=== PATIENT | male | born 1945 | race Two or more races ===

== ENCOUNTER 2020-11-13 07:07 | Outpatient (REF) | payer MEDICARE, SELFPAY | END 2020-11-13 07:08 | disposition home or self-care (01) | LOC: HO.MMNH1L 07:07 | PROVIDERS: Visit Provider Family Medicine | DX: Z13.89 Encounter for screening for other disorder (principal) ==

== ENCOUNTER 2020-11-15 06:36 | Outpatient (REF) | payer SELFPAY ==
[2020-11-15 06:45] LABS: Hematocrit 29.3 % (42-52); Hemoglobin 9.7 g/dl (14.0-18.0); Mean Corpuscular HGB Conc 33.1 g/dl (31.0-36.0); Mean Corpuscular Hemoglobin 29.6 pg (27.0-33.0); Mean Corpuscular Volume 89.3 fL (80-98); Mean Platelet Volume 10.9 fL (9.4-12.4); Platelet Count 398 X10*3/uL (160-400); Red Blood Count 3.28 X10*6/uL (4.60-5.80); Red Cell Distribution Width 13.4 % (11.0-16.0); White Blood Count 10.5 X10*3/uL (4.8-10.8)
[2020-11-15 07:19] LABS: Alanine Aminotransferase 24 U/L (0-40); Albumin Level 3.5 g/dL (3.5-5.0); Alkaline Phosphatase 83 U/L (39-117); Anion Gap 13 (12-20); Aspartate Amino Transferase 18 U/L (5-37); Bilirubin Total 0.7 mg/dL (0.0-1.0); Blood Urea Nitrogen 21 mg/dL (9-16); Calcium 8.7 mg/dL (8.4-10.2); Carbon Dioxide 26 mmol/L (22-29); Chloride 99 mmol/L (96-108); Estimated Glomerular Filt Rate > 60; Glucose Random 117 mg/dL (60-115); Potassium 4.4 mmol/L (3.3-5.1); Sodium 134 mmol/L (135-145); Total Protein 6.1 g/dL (6.5-8.0)
== END 2020-11-15 06:37 | disposition home or self-care (01) ==
LOC: HO.MMNH1L 06:36
PROVIDERS: Visit Provider Family Medicine
DX: R07.9 Chest pain, unspecified (principal)
CPT/HCPCS: 36415; 80053; 85027

== ENCOUNTER 2022-12-09 10:30 | Inpatient (IN) | payer MEDICARE, MEDICAID, SELFPAY ==
[2022-12-09] VITALS (17 sets, daily range): BP systolic 97–142; BP diastolic 55–93; PULSE 71–97; RESP 17–26; TEMP 34.5–36.7; O2SAT 94–100; BMI 23.5
--- NOTE | ~2022-12-09 | XR_ITS ---
EXAMINATION: XR CHEST CLINICAL INFORMATION: Acute dyspnea COMPARISON: None available. TECHNIQUE: AP upright portable view of the chest was obtained. FINDINGS: Patient is status post median sternotomy. Vascular stent projects over the heart. The lungs are well expanded and clear. No focal consolidation, interstitial pulmonary edema or pneumothorax. The cardiomediastinal sweat is within normal limits. There is slight blunting of the costophrenic angles which could represent pleural thickening or small pleural effusions. No acute bony abnormality. XR/XR chest 1V IMPRESSION: Possible small bilateral pleural effusions.
--- NOTE | ~2022-12-09 | CT_ITS ---
EXAMINATION: CT ANGIOGRAM OF THE CHEST WITH AND WITHOUT CONTRAST (CT PULMONARY ANGIOGRAM FOR PE) CLINICAL INFORMATION: Reason for Exam acute dyspnea COMPARISON: Chest x-ray 12/09/2022 TECHNIQUE: Prior to contrast administration, noncontrast localization images were obtained. Subsequently, multidetector volumetric imaging was performed from the thoracic inlet to below the diaphragms following the administration of 80 mL Omnipaque 350 intravenous contrast. No contrast reaction reported Sagittal, coronal, and MIP oblique sagittal reformatted images were obtained on the CT workstation, uploaded to PACS, and reviewed. This CT examination was performed using dose optimization techniques as appropriate, variously including the following: *Automated exposure control *Adjustment of mA and/or kV according to patient size (this includes techniques or standardized protocols for targeted exams where dose is matched to indication/reason for exam; i.e. extremities or head) *Use of iterative reconstruction technique Total exam dose-length product 302 mGy-cm FINDINGS: QUALITY OF STUDY/CONTRAST BOLUS: Satisfactory. PULMONARY ARTERIES: No pulmonary emboli. THORACIC AORTA: No aneurysm. LUNG: The lungs are well-expanded and clear of acute pneumonic process. Mild atelectatic changes are seen in the right lung base. PLEURA: No pleural effusion or pneumothorax. MEDIASTINUM: Heart size is normal. The pulmonary vascularity is normal. Small shotty lymph nodes are seen in the aortic window. The largest lymph node measures 9 mm. No additional lymph nodes seen. There is no pericardial effusion. No evidence of septal bowing or right heart strain. CORONARY ARTERY CALCIFICATION: Mild coronary artery calcifications are seen. CHEST WALL/AXILLA: No axillary or internal mammary lymphadenopathy. OSSEOUS STRUCTURES: There are median sternotomy sutures and mediastinal patrizia. There spondylosis is midline spondylosis mid and lower dorsal spine. UPPER ABDOMEN: Visualized liver, spleen, pancreas and right adrenal gland appears unremarkable. There is a left adrenal 1 cm hypodense lesion No reflux of contrast into the hepatic veins to suggest elevated right heart pressures. CT/CT angio chest PE protocol IMPRESSION: 1. No evidence of PE. 2. No evidence of aortic aneurysm. 3. The lungs are clear. VTE: negative
--- NOTE | 2022-12-09 10:45 | ECG_ITS ---
Test Reason : chest pain Blood Pressure : / mmHG Vent. Rate : 088 BPM Atrial Rate : 088 BPM P-R Int : 184 ms QRS Dur : 082 ms QT Int : 370 ms P-R-T Axes : 079 016 079 degrees QTc Int : 447 ms Normal sinus rhythm Anteroseptal infarct (cited on or before 23-OCT-2004) Abnormal ECG When compared with ECG of 23-OCT-2004 21:12, Minimal criteria for Inferior infarct are no longer Present Questionable change in initial forces of Anteroseptal leads T wave amplitude has decreased in Inferior leads T wave inversion less evident in Anterior leads Nonspecific T wave abnormality now evident in Lateral leads Referred By: Bill Dover Electronically Signed By:Ivan Fierro
[2022-12-09] MEDS: Albuterol Sulfate 7.5 MG, Albuterol/Iprat 2.5/0.5MG 3 ML 3 ML INHALE ×2 (10:53→18:38)
[2022-12-09 11:08] LABS: MANUAL DIFF FLAG NO
--- NOTE | 2022-12-09 11:10 | PC.NURSE ---
per EMS - pt increasing shortness of breath since yesterday. stating pt was low 90's on room air EMS placed pt on cpap. upon arrival respiratory at bedside to place pt onto bipap, pt tolerating well. bilateral iv's established prior to arrival by ems.
[2022-12-09 11:13] LABS: Basophils Percent Auto 0.6 % (0-2); Eosinophils Absolute Auto 0.2 X10*3/uL (0.0-0.4); Eosinophils Percent Auto 3.4 % (0-4); Hematocrit 34.8 % (42.0-52.0); Hemoglobin 11.5 g/dl (14.0-18.0); Imm Gran Abs Auto 0.01 X10*3/uL (0.00-0.03); Imm Gran Pct Auto 0.2 % (0.0-0.4); Mean Corpuscular Hemoglobin 29.8 pg (27.0-33.0); Mean Corpuscular Volume 90.2 fL (80.0-98.0); Monocytes Absolute Auto 0.5 X10*3/uL (0.1-1.2); Monocytes Percent Auto 10.1 % (2-11); Neutrophils Absolute Auto 3.2 x10*3/uL (2.0-8.3); Neutrophils Percent Auto 64.7 % (45-73); Red Blood Count 3.86 X10*6/uL (4.60-5.80); Red Cell Distribution Width 12.8 % (11.0-16.0)
[2022-12-09 11:14] LABS: INTERNATIONAL NORM RATIO 0.9 (0.9-1.1); Prothrombin Time 10.6 SEC (10.0-13.1)
[2022-12-09 11:17] LABS: Partial Thromboplastin Time 31.4 SEC (26.0-36.4)
[2022-12-09 11:27] LABS: Troponin-I High Sensitivity 5.7 ng/L (<3.5-35.0)
--- OUTSIDE RECORDS SUMMARY | 2022-12-09 11:27 | XMS_ITS | Continuity of Care Document ---
Author Name Unknown Organization 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) - 02/05/21 Attending Physician: Kilo Smith MD Allergies, Adverse Reactions, Alerts Substance Reaction Severity Status Duloxetine 1 rash Active 1GI Immunizations Given and Recorded Vaccine Date Status Refusal Reason SARS-CoV-2 (COVID-19) mRNA BNT-162b2 vac 09/29/20 Recorded SARS-CoV-2 (COVID-19) mRNA BNT-162b2 vac 09/08/20 Recorded pneumococcal 13-valent vaccine 03/22/20 Recorded pneumococcal 13-valent vaccine 06/23/14 Given Influenza Virus Vaccine (oldterm) 03/22/20 Recorde d Influenza Virus Vaccine (oldterm) 03/10/19 Recorde d Influenza Virus Vaccine (oldterm) 1 04/03/07 Given Influenza Virus Vaccine (oldterm) 2 03/11/06 Given tetanus/diphtheria/pertussis, acel(Tdap) 12/06/19 Given influenza virus vaccine, inactivated 04/17/18 Give n influenza virus vaccine, inactivated 3 02/28/17 Gi radha influenza virus vaccine, inactivated 03/07/16 Give n influenza virus vaccine, inactivated 03/22/15 Give n influenza virus vaccine, inactivated 4 04/02/14 Re corded influenza virus vaccine, inactivated 04/19/13 Give n influenza virus vaccine, inactivated 01/28/12 Give n influenza virus vaccine, inactivated 5 05/01/11 Gi radha influenza virus vaccine, inactivated 6 08/01/10 Gi radha hepatitis B adult vaccine 07/14/13 Given pneumococcal 23-valent vaccine 05/13/12 Given Zoster Vaccine Live 7 05/22/11 Given Hepatitis A Adult Vaccine 8, 9 08/21/10 Given Influenza Vaccine (oldterm) 10 02/09/09 Given Tet/Diphth/Acel, Pertussis (oldterm) 11 08/04/07 G iven Pneumococcal Vaccine (oldterm) 12 03/11/06 Given 1Admin Note: VIS 2Admin Note: VIS-GIVEN 3Result Comment: [02/28/2017] [facility]: [id number] 4[facility] History[facility] 5Admin Note: VIS 12/18/2010 6Admin Note: VIS given 01/02/10 7Admin Note: vis 03/03 8Result Comment: error 9Admin Note: hep A #1 10Admin Note: vis 01/01 11Admin Note: VIS 12Admin Note: vis-given Medications acetaminophen 325 mg oral tablet 975 mg, By Mouth, Every 6 hours, Refills 0, Maintenance, 11/07/20 11:28:00 EDT, Partial fill upon patient request if the prescription is for a schedule II opioid drug. Start Date: 11/07/20 Status: Ordered albuterol 90 mcg/inh inhalation powder 2 puffs, Inhalation, Every 4 hours, PRN as needed, Maintenance, 11/12/20 16:05:00 EDT, Powder, Partial fill upon patient request if the prescription is for a schedule II opioid drug. Start Date: 11/12/20 Status: Ordered amLODIPine 5 mg oral tablet TAKE 1 TABLET BY MOUTH DAILY Start Date: 11/13/20 Status: Ordered aspirin 81 mg oral enteric coated capsule 1 capsule = 81 mg, By Mouth, Daily, # 120 capsule, 0 Refills, Maintenance, EC Capsule Start Date: 11/13/12 Status: Ordered atorvastatin 80 mg oral tablet 1 tablet, By Mouth, Daily, # 90 tablet, 3 Refills, Maintenance, 02/05/21 8:58:00 EDT, [facility] #[id number], 168, cm, 01/30/21 11:10:00 EDT, Height, 72.7, kg, 10/12/20 9:18:00 EDT, Dry Weight Start Date: 02/05/21 Status: Ordered Augmentin 875 mg-125 mg oral tablet 20 tablet, 0 Refills, 01/30/21 11:05:00 EDT, Partial fill upon patient request if the prescription is for a schedule II opioid drug. Start Date: 01/30/21 Status: Ordered baclofen 5 mg oral tablet 1 tablet = 5 mg, By Mouth, 3 times a day, # 90 tablet, 2 Refills, Maintenance, 01/03/21 8:18:00 EDT, Tablet, [facility] #[id number], Partial fill upon patient request if the prescription is for a schedule II opioid drug., 168, cm, 01/03/21 7:53:0... Start Date: 01/03/21 Status: Ordered Baqsimi One Pack 3 mg nasal powder = 3 mg, Naris, Right, Once, PRN hypoglycemia, Maintenance, 11/12/20 16:06:00 EDT, Partial fill uponpatient request if the prescription is for a schedule II opioid drug. Start Date: 11/12/20 Status: Ordered clopidogrel 75 mg oral tablet 75 mg, 1, tablet, By Mouth, Daily, Continue medication through 09/2021 unless otherwise instructed.,# 90 tablet, Refills 3, Tot. Refills 3, Maintenance, 12/28/20 9:56:00 EDT, Route to Pharmacy Electronically, [facility] #[id number], Partial fill... Start Date: 12/28/20 Status: Ordered docusate sodium 100 mg oral capsule 100 mg, 1, capsule, By Mouth, 2 times a day, # 60 capsule, Refills 6, Tot. Refills 6, Maintenance, 01/03/21 8:19:00 EDT, Route to Pharmacy Electronically, [facility] #[id number], Partial fill upon patient request if the prescription is for a sche... Start Date: 01/03/21 Status: Ordered ezetimibe 10 mg oral tablet 1 tablet = 10 mg, By Mouth, Daily, take with atorvastatin, # 30 tablet, 11 Refills, Maintenance, 12/03/20 16:45:00 EDT, Tablet, [facility] #[id number], Partial fill upon patient request if the prescription is for a schedule II opioid drug., 168,... Start Date: 12/03/20 Status: Ordered Glucagon Emergency Kit See Instructions, PRN, Maintenance, Blood Glucose, use as directed for Type 1 Diabetes Mellitus, 11/12/20 16:07:00 EDT, Supply Start Date: 11/12/20 Status: Ordered glucose 40% oral gel 25 mL, By Mouth, Once, Maintenance, 11/12/20 16:06:00 EDT, Gel, Partial fill upon patient request if the prescription is for a schedule II opioid drug. Start Date: 11/12/20 Status: Ordered grab bars grab bars, See Instructions, # 2 each, Refills 0, Tot. Refills 0, Maintenance, DX: STROKE I63.9 LIFETIME NEED fax: [phone], 12/05/20 16:06:00 EDT, Supply Start Date: 12/05/20 Status: Ordered Incruse Ellipta 62.5 mcg/inh inhalation powder 1 each, Inhalation, Every 24 hours, doses should be taken at least 24 hours apart repaces spitriva,# 30 each, 11 Refills, Maintenance, 12/04/20 9:56:00 EDT, Powder, [facility] #[id number], Partial fill upon patient request if the prescription i... Start Date: 12/04/20 Status: Ordered isosorbide mononitrate 30 mg oral tablet, extended release 1 tablet, By Mouth, Daily in AM, # 30 tablet, 0 Refills, [facility] #[id number], 168, cm, 01/10/21 10:40:00 EDT, Height, 72.7, kg, 10/12/20 9:18:00 EDT, Dry Weight Start Date: 01/28/21 Status: Ordered isosorbide mononitrate 30 mg oral tablet, extended release 1 tablet, By Mouth, Daily in AM, # 30 tablet, 0 Refills, [facility] #[id number], 168, cm, 01/10/21 10:40:00 EDT, Height, 72.7, kg, 10/12/20 9:18:00 EDT, Dry Weight Start Date: 01/28/21 Status: Ordered lamotrigine 25 mg oral tablet 25 mg, 1, tablet, By Mouth, 2 times a day, # 180 tablet, Refills 1, Tot. Refills 1, Maintenance, 10/30/20 8:19:00 EDT, Route to Pharmacy Electronically, [facility] #[id number], 168, cm, 216:43:00 EDT, Height, 72.7, kg, 10/12/20 9:18:00 EDT... Start Date: 10/30/20 Status: Ordered lidocaine 5% topical film Topically, Daily, 0 Refills, Maintenance, 11/14/20 14:06:00 EDT, Patch, Partial fill upon patient request if the prescription is for a schedule II opioid drug. Start Date: 11/14/20 Status: Ordered metFORMIN 1000 mg oral tablet 1 tablet = 1,000 mg, By Mouth, 2 times a day, with meals, # 180 tablet, 1 Refills, Maintenance, 12/27/20 13:44:00 EDT, Tablet, [facility] #[id number], 168, cm, 12/01/20 9:19:00 EDT, Height, 72.7, kg, 10/12/20 9:18:00 EDT, Dry Weight Start Date: 12/27/20 Stop Date: 06/25/21 Status: Ordered metoprolol 25 mg oral tablet, extended release 12.5 mg, 0.5, tablet, By Mouth, Daily, # 30 tablet, Refills 2, Tot. Refills 2, Maintenance, 01/10/21 11:01:00 EDT, Route to Pharmacy Electronically, [facility] #[id number], Partial fill upon patient request if the prescription is for a schedule I... Start Date: 01/10/21 Status: Ordered nitroglycerin 0.3 mg sublingual tablet 1 tablet = 0.3 mg, Sublingual, Every 5 minutes, PRN as needed for chest pain, not to exceed 3 doses/15 min--if pain persists, seek medical attention, # 100 tablet, 0 Refills, Maintenance, 12/04/20 10:05:00 EDT, Tablet, [facility] #[id number], Par... Start Date: 12/04/20 Status: Ordered omeprazole 20 mg oral enteric coated capsule 1 capsule = 20 mg, By Mouth, Daily, for 90 days, before breakfast, # 90 capsule, 1 Refills, Hard Stop 02/13/21 15:28:00 EDT, 08/17/20 15:28:00 EDT, EC Capsule, [facility] #[id number], 168, cm, 07/17/20 14:04:00 EST, Height Start Date: 08/17/20 Stop Date: 02/13/21 Status: Ordered omeprazole 20 mg oral enteric coated capsule 1 capsule = 20 mg, By Mouth, Daily, before breakfast, # 90 capsule, 0 Refills, Maintenance, 02/13/21 15:28:00 EDT, EC Capsule, [facility] #[id number], 168, cm, 02/05/21 14:18:00 EDT, Height, 72.7, kg, 10/12/20 9:18:00 EDT, Dry Weight Start Date: 02/13/21 Stop Date: 05/14/21 Status: Ordered oxyCODONE 10 mg oral tablet 1 tablet = 10 mg, By Mouth, Every 4 hours, PRN as needed for pain, 0 Refills, Maintenance, 11/12/2114:57:00 EDT, Tablet, Partial fill upon patient request if the prescription is for a schedule II opioid drug. Start Date: 11/12/20 Status: Ordered oxyCODONE 10 mg oral tablet 1 tablet = 10 mg, By Mouth, Every 4 hours, PRN as needed for pain, chronic back pain, # 168 tablet,0 Refills, Maintenance, 01/30/21 15:55:00 EDT, Tablet, [facility] #[id number], Partial fill upon patient request if the prescription is for a sche... Start Date: 01/30/21 Status: Ordered Plavix 75 mg oral tablet 75 mg, 1, tablet, By Mouth, Daily, # 90 tablet, Refills 3, Tot. Refills 3, Maintenance, 01/03/21 8:20:00 EDT, Route to Pharmacy Electronically, [facility] #[id number], Partial fill upon patient request if the prescription is for a schedule II opi... Start Date: 01/03/21 Status: Ordered Tub transfer bench Tub transfer bench, See Instructions, # 1 each, Refills 0, Tot. Refills 0, Maintenance, DX: STROKE I63.9 LIFETIME NEED fax: [phone], 12/05/20 16:06:00 EDT, Supply Start Date: 12/05/20 Status: Ordered Vitamin C 500 mg oral tablet 1 tablet = 500 mg, By Mouth, Daily, Maintenance, 11/12/20 15:58:00 EDT, Tablet, Partial fill upon patient request if the prescription is for a schedule II opioid drug. Start Date: 11/12/20 Status: Ordered Vitamin D3 2000 intl units oral capsule 1 capsule = 2,000 International_Units, By Mouth, Daily, Maintenance, 11/12/20 16:01:00 EDT, Capsule, Partial fill upon patient request if the prescription is for a schedule II opioid drug. Start Date: 11/12/20 Status: Ordered Problem List Condition Effective Dates Status Health Status Inform ant Adrenal adenoma left;[place] 2020/normal rufina.plasma meranephr/normeta(Confirmed) 11/12/20 Active ASHD cath September 2020 abnormal ef 35% see report(Confirmed) Active Benign Essential Hypertension(Confirmed) Active Hematuria(Confirmed) 1 Active BPH (benign prostatic hypertrophy)(Confirmed) 2 Active Coronary atherosclerosis due to calcified coronary lesion(Confirmed) Active CVA (cerebral vascular accident)(Confirmed) Active Chronic renal disease, stage 3, moderately decreased glomerular filtration rate between 30-59 mL/min/1.73 square meter(Confirmed) Active Chronic Prostatitis(Confirmed) 3, 4 Active 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%(Confirmed) 5 Active Diabetes mellitus with renal manifestation(Confirmed) Active Sigmoid diverticulosis(Confirmed) 6 03/08/15 Active DM (diabetes mellitus), type 2 with peripheral vascular complications(Confirmed) 7 Active Elevated PSA(Confirmed) 8, 9, 10 Active Inclusion cyst mucous rt tonsil(Confirmed) 09/26/17 Active Erectile dysfunction(Confirmed) 11 Active Essential familial hyperlipidemia(Confirmed) Active GERD'egd 2017(Confirmed) 12, 13 07/11/11 Active H/O lumbar discectomy 1991(C onfirmed) 1991 Active History of obstructive sleep apnea;ent sx(Confirmed) 15, 16, 17 Active 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, SVG-PDA, SVG-diag)(Confirmed) 10/29/20 Active Hx of adenomatous colonic polyps(Confirmed) 18 Active Inguinal hernia left(Confirmed) Active Ischemic cardiomyopathy cath September 2020 ef 35%(Confirmed) 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(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) 19, 20, 21 Active Mass of left parotid gland c t angio 2020(Confirmed) 11/28/20 Active Nasal Polyps(Confirmed) 22, 23, 24, 25 Active Encounter for monitoring andrea g-term proton pump inhibitor therapy(Confirmed) Active Mass of pharynx refer ent(Confirmed) 09/15/17 Active Failed back syndrome sx 1991(Confirmed) 26 Active Spinal stenosis of lumbar region(Confirmed) 27 Active Syncope November 12-(Confirmed) 11/12/20 Active Thrombocytopenia(Confirmed) 28, 29 Active Tubular adenoma of colon 201 another colo;2020(Confirmed) 30 Active Vitamin D deficiency(Confirmed) Active 1per urology due BPH 2per CT scan 3no showurology 4bx dec 2012 5fev1 89% 6colonoscopy 2014,mild 7refer teaching 8neg bx 9BIOPSY PLANNED 10DR anish addressing 11had viagra past 12refer EGD unable wean off ppi 13check H pylori 14chronic pain;contract refuses epidurals had bad experience 15epworth 4;had polyp sx 16intol;erant CPAP;refer ENT 17AHI 39.8 CPAP 15cm 18recheck 1 week 19care ploan reviewed 20comm 2 21PHQ9;2. [place] 4, 22had surgery 2011 23sx pending 24had sx 25seeing ENT 26surgery 1991 27MRI 2006 28possible ITP 29monitor 30Tubular adenoma 2014 Diagnosis Diagnosis Type Effective Dates Health Status Clinical Service Informant Adrenal adenoma left;incidental 2020/normal rufina.plasma meranephr/normeta 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 02/05/21 Benign Essential Hypertension 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 02/05/21 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 02/05/21 DM (diabetes mellitus), type 2 with peripheral vascular complications 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 02/05/21 Procedures Procedure Date Related Diagnosis Body Site Status Fine needle aspiration biops y of parotid gland;neg 01/17/21 Completed Vital Signs Most recent to oldest [Reference Range]: 1 2 Height 168 cm (02/05/21 2:18 PM) 168 cm (02/05/21 2:05 PM) Weight 74.9 kg (02/05/21 2:05 PM) Oxygen Saturation [94-100 %] 98 % (02/05/21 2:05 PM) Pulse Rate [55-90 bpm] 80 bpm (02/05/21 2:05 PM) Body Mass Index [18.5-24.99] 26.54 *H* (02/05/21 2:05 PM) Blood Pressure [90-138/55-84 mm Hg] 130/ 80mm Hg (02/05/21 2:18 PM) 146/70mm Hg *H* (02/05/21 2:05 PM) Respiratory Rate [16-30 br/min] 18 br/mi n (02/05/21 2:05 PM) Temperature [96.8-100.4 DegF] 98.4 DegF (02/05/21 2:05 PM) Blood pressure sites Arm, left (02/05/21 2:18 PM) Arm, left (02/05/21 2:05 PM) Temperature Route Oral (02/05/21 2:05 PM) Social History Social History Type Response Smoking Status Former smoker; Tobac co use times per day: smoked < 1/2 PPD; Started at age: 18; Stopped at age: 65; entered on: 12/23/13 Sex
--- OUTSIDE RECORDS SUMMARY | 2022-12-09 11:27 | XMS_ITS | Continuity of Care Document ---
Author Name Unknown Organization [facility] Address [address] [place] [id number] Care Team Providers Care Learning Coach Name Role Phone Kristin LEVI, Leticia Hope Primary Care Physician [phone] Encounter [facility] Date(s): 06/07/22 - 06/07/[address] [address] Discharge Disposition: A-D/C Home Attending Physician: Rubén Mathews Jr, MD Admitting Physician: Rubén Mathews Jr, MD Referring Physician: Rubén Mathews Jr, MD Allergies, Adverse Reactions, Alerts Substance Reaction Severity Status Duloxetine 1 rash Active 1GI Immunizations Given and Recorded Vaccine Date Status Refusal Reason influenza virus vaccine, inactivated 1 03/28/22 Gi radha influenza virus vaccine, inactivated 2 03/19/21 Gi radha influenza virus vaccine, inactivated 04/17/18 Give n [...] virus vaccine, inactivated 6 08/01/10 Gi radha SARS-CoV-2 mRNA (bdgchun-qvhk-frzgo) vax 7 06/29/21 Given SARS-CoV-2 (COVID-19) mRNA BNT-162b2 vac 09/29/20 Recorded SARS-CoV-2 (COVID-19) mRNA BNT-162b2 vac 09/08/20 Recorded pneumococcal 13-valent vaccine 03/22/20 Recorded pneumococcal 13-valent vaccine 06/23/14 Given Influenza Virus Vaccine (oldterm) 03/22/20 Recorde d Influenza Virus Vaccine (oldterm) 03/10/19 Recorde d Influenza Virus Vaccine (oldterm) 8 04/03/07 Given Influenza Virus Vaccine (oldterm) 9 03/11/06 Given tetanus/diphtheria/pertussis, acel(Tdap) 12/06/19 Given hepatitis B adult vaccine 07/14/13 Given pneumococcal 23-valent vaccine 05/13/12 Given Zoster Vaccine Live 10 05/22/11 Given Hepatitis A Adult Vaccine 11, 12 08/21/10 Given Influenza Vaccine (oldterm) 13 02/09/09 Given Tet/Diphth/Acel, Pertussis (oldterm) 14 08/04/07 G iven Pneumococcal Vaccine (oldterm) 15 03/11/06 Given 1Result Comment: [facility]-[id number] 2Result Comment: [facility]: [id number] 3Result Comment: [02/28/2017] HD [facility]: [id number] [facility] 5Admin Note: VIS 12/18/2010 6Admin Note: VIS given 01/02/10 7Result Comment: [facility]-[id number] 8Admin Note: VIS 9Admin Note: VIS-GIVEN 10Admin Note: vis 03/03 11Result Comment: error 12Admin Note: hep A #1 13Admin Note: vis 01/01 14Admin Note: VIS 15Admin Note: vis-given Medications albuterol 90 mcg/inh inhalation powder 2 puffs, Inhalation, Every 4 hours, PRN as needed, Maintenance, 11/12/20 16:05:00 EDT, Powder, Partial fill upon patient request if the prescription is for a schedule II opioid drug. Start Date: 11/12/20 Status: Ordered amLODIPine 5 mg oral tablet 1 tablet = 5 mg, By Mouth, Daily, TAKE 1 TABLET BY MOUTH DAILY, # 90 tablet, 0 Refills, Maintenance, 06/03/22 11:01:00 EST, Tablet, [facility] #[id number], Partial fill upon patient request if the prescription is for a schedule II opioid drug., 1... Start Date: 06/03/22 Status: Ordered aspirin 81 mg oral enteric coated capsule 1 capsule = 81 mg, By Mouth, Daily, # 120 capsule, 0 Refills, Maintenance, EC Capsule Start Date: 11/13/12 Status: Ordered atorvastatin 80 mg oral tablet 1 tablet, By Mouth, Daily, # 90 tablet, 1 Refills, Maintenance, 01/22/22 12:14:00 EDT, [facility] #[id number], 168, cm, 12/26/21 15:45:00 EDT, Height, 88.5, kg, 11/04/21 16:51:00 EDT, Dry Weight Start Date: 01/22/22 Status: Ordered baclofen 10 mg oral tablet 0.5, tablet, By Mouth, 3 times a day, # 45 tablet, Refills 0, Tot. Refills 0, 08/14/21 13:16:00 EDT, Route to Pharmacy Electronically, [facility] #[id number], 168, cm, 08/01/21 9:15:00 EST, Height, 72.7, kg, 10/12/20 9:18:00 EDT, Dry Weight Start Date: 08/14/21 Status: Ordered clopidogrel 75 mg oral tablet 75 mg, 1, tablet, By Mouth, Daily, Continue medication through 09/2021 unless otherwise instructed.,# 90 tablet, Refills 3, Tot. Refills 3, Maintenance, 12/28/20 9:56:00 EDT, Route to Pharmacy Electronically, [facility] #[id number], Partial fill... Start Date: 12/28/20 Status: Ordered Coreg 6.25 mg oral tablet 6.25 mg, 1, tablet, By Mouth, 2 times a day, # 60 tablet, Refills 0, Tot. Refills 0, Maintenance, 04/08/22 15:17:00 EST, Route to Pharmacy Electronically, [facility], Partial fill upon patient request if the prescription is for a schedul... Start Date: 04/08/22 Status: Ordered Farxiga 10 mg oral tablet 1 tablet = 10 mg, By Mouth, Daily, Increased strength, # 30 tablet, 0 Refills, Maintenance, 01/16/22 9:53:00 EDT, Tablet, [facility] #[id number], Increased strength, 168, cm, 12/26/21 15:45:00 EDT, Height, 88.5, kg, 11/04/21 16:51:00 EDT, Dry Weight Start Date: 01/16/22 Status: Ordered Freestyle Lancets See Instructions, # 200 each, Refills 5, Tot. Refills 5, Maintenance, use as directed for Type 2 Diabetes Mellitus to test blood sugar BID E11.9 PHILLIP- lifetime, 07/06/21 14:18:00 EST, Supply, 168, cm, 07/06/21 13:13:00 EST, Height, 72.7, kg, 10/12/20... Start Date: 07/06/21 Stop Date: 01/02/22 Status: Ordered Freestyle Lite Test Strips See Instructions, # 200 each, Refills 5, Tot. Refills 5, Maintenance, use as directed for Type 2 Diabetes Mellitus to test blood sugar BID E11.9 PHILLIP- lifetime, 07/06/21 14:19:00 EST, Supply, 168, cm, 07/06/21 13:13:00 EST, Height, 72.7, kg, 10/12/20... Start Date: 07/06/21 Stop Date: 01/02/22 Status: Ordered Glucagon Emergency Kit See Instructions, PRN, Maintenance, Blood Glucose, use as directed for Type 1 Diabetes Mellitus, 11/12/20 16:07:00 EDT, Supply Start Date: 11/12/20 Status: Ordered isosorbide mononitrate 60 mg oral tablet, extended release 60 mg, 1, tablet, By Mouth, Daily in AM, # 30 tablet, Refills 5, Tot. Refills 5, Maintenance, 05/02/22 13:11:00 EST, Route to Pharmacy Electronically, [facility] #[id number], Partial fill upon patient request if the prescription is for a schedule... Start Date: 05/02/22 Stop Date: 10/29/22 Status: Ordered lamotrigine 25 mg oral tablet 25 mg, 1, tablet, By Mouth, 2 times a day, # 180 tablet, Refills 1, Tot. Refills 1, Maintenance, 01/22/22 12:14:00 EDT, Route to Pharmacy Electronically, [facility] #[id number], 168, cm, 12/26/21 15:45:00 EDT, Height, 88.5, kg, 11/04/21 16:51:00... Start Date: 01/22/22 Status: Ordered lisinopril 5 mg oral tablet 5 mg, 1, tablet, By Mouth, Daily, # 90 tablet, Refills 3, Tot. Refills 3, Maintenance, 03/10/22 22:37:00 EDT, Route to Pharmacy Electronically, [facility] #[id number], Partial fill upon patient request if the prescription is for a schedule II opi... Start Date: 03/10/22 Status: Ordered nitroglycerin 0.3 mg sublingual tablet 1 tablet = 0.3 mg, Sublingual, Every 5 minutes, PRN as needed for chest pain, not to exceed 3 doses/15 min--if pain persists, seek medical attention, # 100 tablet, 0 Refills, Maintenance, 12/04/20 10:05:00 EDT, Tablet, [facility] #[id number], Par... Start Date: 12/04/20 Status: Ordered oxyCODONE 10 mg oral tablet 1 tablet = 10 mg, By Mouth, Every 4 hours, PRN as needed for pain, chronic back pain, # 168 tablet,0 Refills, Maintenance, 05/29/22 20:21:00 EST, Tablet, [facility] #[id number], Partial fill upon patient request if the prescription is for a sche... Start Date: 05/29/22 Status: Ordered pantoprazole 40 mg oral delayed release tablet 1 tablet = 40 mg, By Mouth, Daily, # 90 tablet, 2 Refills, Maintenance, 06/07/22 17:16:00 EST, EC Tablet, 167.6, cm, 06/07/22 15:42:00 EST, Height, 74, kg, 04/06/22 1:20:00 EST, Dry Weight Start Date: 06/07/22 Status: Ordered Vitamin C 500 mg oral [...] Date: 11/12/20 Status: Ordered Problem List Condition Confirmation Course Effective Dates Status H ealth Status Informant Adjustment disorder Confirmed Active Adrenal adenoma left;incidental 2020/normal rufina.plasma meranephr/normeta Confirmed 11/12/20 Active ASHD cath September 2020 abnormal ef 35% see report Confirmed Active Benign Essential Hypertension Confirmed Active Hematuria 1 Confirmed Active BPH (benign prostatic hypertrophy) 2 Confirmed Active Chronic Prostatitis 3, 4 Confirmed Active 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% 5 Confirmed Active Diabetes mellitus with renal manifestation Confirmed Active Ectatic aorta Confirmed Active Sigmoid diverticulosis 6 Confirmed 03/08/15 Active DM (diabetes mellitus), type 2 with peripheral vascular complications 7 Confirmed Active Elevated PSA 8, 9, 10 Confirmed Active Inclusion cyst mucous rt tonsil Confirmed 09/26/17 Active Erectile dysfunction 11 Confirmed Active Essential familial hyperlipidemia Confirmed Active GERD'egd 2018 04, 13 Confirmed 07/11/11 Active H/O lumbar discectomy 1991 14 Confirmed 1991 Active History of obstructive sleep apnea;ent sx , 16, 17 Confirmed Active H/O: CVA (rain stem,lacunes) Confirmed Active Hx of CABG x3 CABG x 3 (ALVAREZ-mid LAD, SVG-PDA, SVG-diag) Confirmed 10/29/20 Active Hx of adenomatous colonic polyps 18 Confirmed Active Inguinal hernia left Confirmed Active Ischemic cardiomyopathy Confirmed 10/20/20 [address] jail current use of opiate analgesic 19, 20, 21 Confirmed Active 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/neg BX 2020;ENT Confirmed 11/28/20 Active Nasal Polyps 22, 23, 24, 25 Confirmed Active Dilated pancreatic duct needs ERCP/GI scheduling Confirmed 11/05/21 Active Encounter for monitoring long-term proton pump inhibitor therapy Confirmed Active Failed back syndrome sx 1991 Confirmed Active Spinal stenosis of lumbar region 27 Confirmed Active Subconjunctival hemorrhage of right eye Confirmed Active Syncope November 12 2-021 Confirmed 11/12/20 Active 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 [place] 4, 22had surgery 2011 23sx pending 24had sx 25seeing ENT 26surgery 1991 27MRI 2006 28possible ITP 29monitor 30Tubular adenoma 2014 Vital Signs Most recent to oldest [Reference Range]: 1 2 3 Height 167.6 cm (06/07/22 3:42 PM) Weight 72.6 kg (06/07/22 3:42 PM) Oxygen Saturation [94-100 %] 98 % (06/07/22 5:20 PM) 99 % (06/07/22 5:10 PM) 90 % *L* (06/07/22 5:00 PM) Pulse Rate [55-90 bpm] 89 bpm (06/07/22 5:10 PM) 88 bpm (06/07/22 5:00 PM) 78 bpm (06/07/22 3:42 PM) Body Mass Index [18.5-24.99 kg/m2] 25.85 kg/m2 *H* (06/07/22 3:42 PM) Blood Pressure [90-138/55-84 mm Hg] 154/88mm Hg *H* (06/07/22 5:20 PM) 144/90mm Hg *H* (06/07/22 5:10 PM) 92/62mm Hg (06/07/22 5:00 PM) Respiratory Rate [16-30 br/min] 21 br/min (06/07/22 5:20 PM) 22 br/min (06/07/22 5:10 PM) 21 br/min (06/07/22 5:00 PM) Temperature [96.8-100.4 DegF] 97.7 DegF (06/07/22 3:42 PM) Liters per Minute 10 L/min (06/07/22 5:00 PM) Mode of Delivery (Oxygen) Room air (06/07/22 5:20 PM) Room air (06/07/22 5:10 PM) Simple face mask (06/07/22 5:00 PM) Blood pressure sites Arm, left (06/07/22 5:20 PM) Arm, left (06/07/22 5:10 PM) Arm, left (06/07/22 5:00 PM) Temperature Route Temporal (06/07/22 3:42 PM) Weight Obtained Via Patient/family state d (06/07/22 3:42 PM) Social History Social History Type Response Smoking Status Former smoker; Tobac co use times per day: smoked < 1/2 PPD; Started at age: 18; Stopped at age: 65; entered on: 12/23/13 Sex Note * Maryam Thacker RN: PERFORM Event Display: Discharge/Transfer Note Hospital Authored Date: [id number] Nursing Discharge Note Entered On: 06/07/2022 17:21 EST Performed On: 06/07/2022 17:21 EST by Maryam Thacker RN Nursing Discharge Note 2 Discharge Time : 06/07/2022 17:59 EST Discharge Level of Care at Discharge : Home/Care Home/Foster Care Maryam Thacker RN - 06/07/2022 18:06 EST Patient Left Unit Via : Wheelchair Patient Accompanied Off Unit with : Responsible adult DC Instructions Provided & Signed by Pt : Yes Patient Understands D/C Instructions : Yes Patient Instructions Discharge Signed : Yes Did Pt have Specialty Bed or Wound Vac : No Maryam Thacker RN - 06/07/2022 17:21 EST * Maryam Thacker RN: PERFORM Event Display: Patient Education/Instruction Authored Date: [id number] Inpatient Adult Discharge Instructions [address] [id number] Name: OSCAR MURRAY : 1945 Visit: 06/07/2022 13:46:00 Current Date: 06/07/2022 17:21 Account: [id number] Inpatient Adult Discharge Instructions We would like to thank you for allowing us to assist you with your healthcare needs. The following includes patient education materials and information regarding your injury/illness. Our entire staffstrives to provide an excellent experience for our patients and their families. PLEASE ENSURE YOU FOLLOW-UP PER THE INSTRUCTIONS BELOW! ?? YOUR OPINION IS IMPORTANT TO US! Please complete the survey you may receive by mail or email. Your feedback will be used to make improvements to the healthcare experiences of our patients and their families. Surveys are administered by [employer] ?? If further treatment with your primary care physician or another doctor is recommended, it is important for you to keep the appointment. Call your primary care physician or return to the Emergency Department immediately if your condition worsens, fails to improve, or new symptoms develop. If you need to find a doctor, you can call [facility] [employer] for a referral at [phone] or toll free at [phone] or log in to [email or web address].. ?? You can view and manage your care through the patient portal or by using a health care [facility] of your choosing. [email or web address] is a website that allows you to securely view your medical information including your hospital discharge summary, office visit summaries, medications and follow-up visits. You can also request appointments, renew medications, and request access to your medical information using a health care [facility] of your choosing, or just ask a question. You can enroll at [email or web address] or register during your next office visit. You have been discharged from [facility], Patient Care Unit: ENDO. If you have any questions regarding these instructions after you leave, please call us and we will be happy to assist you. [facility] Your Care Team Attending Physician Reid Sharma MD, Rubén Mercer Discharging Providers Reid Sharma MD, Rubén Mercer Reason for Admission DUODENAL /PERIAMPULLARY LESION, DILATED PANC DUCT Tests Performed Below is a partial list of the tests performed during your hospitalization. You may have had other tests and procedures not included in this list. Please discuss all test results with your provider. Primary Care Provider Kristin Leticia SIMS Advance Directive Health Care Proxy on File Yes - Health Care Proxy Yes - MOLST No qualifying data available. Discharge Vitals Temperature: 97.7 DegF Height: 167.6 cm Pulse Rate: 89 bpm Weight: 72.6 kg Respiratory Rate: 22 br/min Body Mass Index:??25.85 kg/m2??High Systolic Blood Pressure:??144 mm Hg??High Body surface area: 1.84 Diastolic Blood Pressure:??90 mm Hg??High ?? Oxygen Saturation: 99 % ?? Studies Pending All tests and labs ordered during this hospital stay have been completed unless listed below. Please discuss all pending results with your provider listed above in these instructions. ?? No incomplete studies found What to do next Instructions From Your Doctor We completed your endoscopic ultrasound examination today. ?? We believe that abnormalities seen on MRI scan are related to an outpouching in your intestine. This was not concerning. There were a few small erosions in the stomach and then some erosive changes in the esophagus. ??Weadvise you start to take pantoprazole 40 mg daily. We will send you a letter with the biopsy results and send a phone call your way. ?? Start Start pantoprazole 40 mg daily. Resume aspirin and Plavix. ?? It is very important that you follow these instructions: ?You may have a mild sore throat or hoarseness after the procedure. This is because of the tubeand the anesthetic.?You may feel nauseated today. This sometimes happens because of the medications that are used. This should get better within a few hours. If your nausea continues for more than 24 hours contact your doctor's office.?Begin taking small sips of water and progress to solid foods gradually as you are feeling better.?Do not drive any motor vehicle or operate dangerous equipment. Weakness and lack of coordinationare the result of the medications that were administered during the procedure.?Do not conduct important business or sign any legal documents on the day of the procedure, sinceyou may feel drowsy from the medications that were administered today.?If you have redness or swelling at sites where medications were given, place a warm wet washcloth over the affected area for twenty minutes. If the symptoms persist for over two days please contact your doctor's office.?Call your doctor's office if you develop fever greater than 101 degrees or chills during the next 48 hours.?Please call for any issues or questions that may arise. ??Our office phone number is [phone] ? Discharge Orders Scheduled Follow-Up Appointments Friday 12:50 PM EST ?? With: Leticia Foster NP Where: [facility] [address] [place] [address]- You Need to Schedule the Following Appointments Follow Up with??Leticia Foster NP When?? Where: ?? Follow Up with??Leticia Foster NP When?? Where: ?? Discharge Medications OSCAR MURRAY :1945 Visit Date:06/07/2022 Medications: Please continue your medications until treatment is completed or stopped by your provider. Medications not listed below should be discontinued. Discuss any questions related to medications with your provider. What How Much When Instructions Next Dose New Pantoprazole (pantoprazole 40 mg oral delayed releasetablet) 1 tab(s) Oral Daily Refills: 2 Pickup at [facility] #[id number] Unchanged Albuterol (albuterol 90 mcg/ inh inhalation powder) 2 puff(s) Inhalation Every 4 hours as needed for as needed Unchanged Amlodipine (amLODIPine 5 mg oral tablet) 1 tab(s) Oral Daily TAKE 1 TABLET BY MOUTH DAILY ?? Unchanged Ascorbic Acid (Vitamin C 500 mg oral tablet) 1 tab(s) Oral Daily Unchanged Aspirin (aspirin 81 mg oral enteric coated capsule) 1 capsule Oral Daily Unchanged Atorvastatin (atorvastatin 80 mg oral tablet) 1 tab(s) Oral Daily Unchanged Baclofen (baclofen 10 mg oral tablet) 0.5 tab(s) Oral 3 times a day Unchanged Carvedilol (Coreg 6.25 mg oral tablet) 1 tab(s) Oral Twice a day Unchanged Cholecalciferol (Vitamin D3 2000 intl units oral capsule) 1 capsule Oral Daily Unchanged Clopidogrel (clopidogrel 75 mg oral tablet) 1 tab(s) Oral Daily Continue medication through 2021 unless otherwise instructed. ?? Unchanged dapagliflozin (Farxiga 10 mg oral tablet) 1 tab(s) Oral Daily Increased strength ?? Unchanged Durable Medical Equipment (Freestyle Lancets) See instructions Duration: 30 Days use as directed for Type 2 Diabetes Mellitus to test blood sugar BID E11.9 PHILLIP-lifetime ?? Unchanged Durable Medical Equipment (Freestyle Lite Test Strips) See instructions Duration: 30 Days use as directed for Type 2 Diabetes Mellitus to test blood sugar BID E11.9 PHILLIP-lifetime ?? Unchanged Durable Medical Equipment (Glucagon Emergency Kit) See Instructions As needed for Blood Glucose use as directed for Type 1 Diabetes Mellitus ?? Unchanged Isosorbide Mononitrate (isosorbide mononitrate 60 mg oral tablet, extended release) 1 tab(s) Oral Daily in the morning Duration: 30 Days Unchanged Lamotrigine (lamotrigine 25 mg oral tablet) 1 tab(s) Oral Twice a day Unchanged Lisinopril (lisinopril 5 mg oral tablet) 1 tab(s) Oral Daily Unchanged Nitroglycerin (nitroglycerin 0.3 mg sublingual tablet) 1 tab(s) Sublingual Every 5 minutes as needed for as needed for chest pain not to exceed 3 doses/ 15 min--if pain persists, seek medical attention ?? Unchanged Oxycodone (oxyCODONE 10 mg oral tablet) 1 tab(s) Oral Every 4 hours as needed for as needed for pain chronic back pain ?? Pharmacy Information [facility] #[id number]: [address], [place] [id number] [phone] ?? What How Much When Comments Stop Taking Omeprazole (omeprazole 20 mg oral enteric coated capsule) 1 capsule Oral Daily Duration: 90 Days in AM ?? Test Results Below is a partial list of the most recent Laboratory test results done prior to this discharge. You may have had other tests and procedures not included in this list. Please discuss all test resultswith your provider. Allergies (NKA means No Known Allergies) Duloxetine??(rash) Problems Active Problems??(39) Acute colitis 10/2021?? Adjustment disorder?? Adrenal adenoma left;incidental 2020/normal rufina.plasma meranephr/normeta?? ASHD cath September 2020 abnormal ef 35% see report?? Benign Essential Hypertension?? BPH (benign prostatic hypertrophy)?? Chronic Prostatitis?? 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%?? Diabetes mellitus with renal manifestation?? Dilated pancreatic duct needs ERCP/GI scheduling?? DM (diabetes mellitus), type 2 with peripheral vascular complications?? Ectatic aorta?? Elevated PSA?? Encounter for monitoring long-term proton pump inhibitor therapy?? Erectile dysfunction?? Essential familial hyperlipidemia?? Failed back syndrome sx 1991?? GERD'egd 2017?? H/O lumbar discectomy 1991?? H/O: CVA (rain stem,lacunes)?? Hematuria?? History of obstructive sleep apnea;ent sx?? Hx of adenomatous colonic polyps?? Hx of CABG x3 CABG x 3 ??(ALVAREZ-mid LAD, SVG-PDA, SVG-diag)?? Inclusion cyst mucous rt tonsil?? Inguinal hernia left?? Ischemic cardiomyopathy?? 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 Nasal Polyps?? Opiate Agreement?? opiate contract?? Sigmoid diverticulosis?? Spinal stenosis of lumbar region?? Subconjunctival hemorrhage of right eye?? Syncope November 12?? 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 Tubular adenoma of colon 2014/ declines another colo;2020?? Vitamin D deficiency?? Education Materials Below is the list of Educational Leaflet Providered with your Discharge Instructions. Valuables and Belongings I fully understand and agree that [facility] accepts no responsibility for all my personal property including clothing, toilet articles, radios, jewelry, dentures, hearing aids, rings, money, or any other property that is in my possession or is brought to me after admission. I understand certain valuables may be placed in a hospital safe for a short period of time. I understand that the hospital is not liable for loss or damage due to accident, fire, or other natural occurrence while said property is in the safe. I accept full responsibility for any personal property that I keep with me, and will not hold the hospital responsible in case of loss or disappearance. I acknowledge that i have been encouraged to send valuables and belongings home. ?? Review of Valuable and Belonging List: With patient Date for Pt to Sign Valuables/Belongings: 06/07/22 15:42:00 ?? Valuables & Belongings ?? Clothes Electronic devices Jewelry Monetary Items Personal devices Miscellaneous Medications (Valuables) Valuables at Bedside Pants, Shirt, Shoes, Undergarments ? Valuables Sent Home ? Valuables Sent to Security ? Other Discharge Information ? Pulmonary Rehab Status?? Pulmonary Rehab Discharge Status?? Respiratory Rate: 22 br/min ? Common Emergency Awareness Tips IS IT A STROKE? Act FAST and Check for these signs: FACE Does the face look uneven? ARM Does one arm drift down? SPEECH Does their speech sound strange? TIME Call at any sign of stroke ?? Heart Attack Signs Chest discomfort: Most heart attacks involve discomfort in the center of the chest and lasts more than a few minutes, or goes away and comes back. It can feel like uncomfortable pressure, squeezing, fullness or pain. Discomfort in upper body: Symptoms can include pain or discomfort in one or both arms, back, neck, jaw or stomach. Shortness of breath: With or without discomfort. Other signs: Breaking out in a cold sweat, nausea, or lightheaded. Remember, MINUTES DO MATTER. If you experience any of these heart attack warning signs, call to get immediate medical attention! ?? Smoking can increase your chances of developing chronic health problems and can cause harmful effects to other family members in your house. If you smoke, you are strongly encouraged to quit. Please call [facility] [employer] Link at [phone] or [phone] ([phone]) or log in to [email or web address] for referrals to smoking cessation programs. ?? The National Suicide Prevention Hotline is available 16/12 if you or someone you know needs to find a reason to keep living. By calling 6-063-470-Subimage (7541) you'll be connected to a skilled, trained counselor at a crisis center in your area. INPATIENT DISCHARGE INSTRUCTIONS SIGNATURE PAGE TERRI OSCAR Location:[facility] Registration Date and Time:06/07/2022 13:46 EST Primary Care Physician: Leticia Foster NP, I OSCAR MURRAY, have received the above patient education materials/instructions and have verbalized understanding. If ambulance or transport services are being used I further acknowledge being givena choice of service. ?? If you need to contact me, please call me at this number: . 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 Signature: Relationship to Patient: Witness Name/Signature: Date: Patient Care team information Care Team Personnel Name: Philomena Castillo Position: [facility] RN Supv Member Role: Primary Care Nurse Name: Leticia Foster [facility] Professional Member Role: PCP Address: Address: [address] [place] [id number] Name: Namita Barajas RN Position: [facility] RN Member Role: Primary Care Nurse Name: Tasha Back RN Position: S RN Member Role: Primary Care Nurse Name: Jenny Bustillos RN Position: [facility] RN Member Role: Primary Care Nurse Name: Margarita Serrano RN Position: S RN Member Role: Primary Care Nurse Name: Devin Benites RN Position: [facility] CAIO RN W/OE and Tasks Member Role: Primary Care Nurse Name: Betsy Millan RN Position: S RN Member Role: Primary Care Nurse Name: Peggy Jansen RN Position: S RN Member Role: Primary Care Nurse Name: Cate Pabon RN Position: [facility] PCO RN Member Role: Primary Care Nurse Name: Janette Jones RN Position: S RN Member Role: Primary Care Nurse Name: Vianney Mcneill RN Position: S RN Member Role: Primary Care Nurse Name: Cindy Evans LPN Position: S RN Member Role: Primary Care Nurse Care Team Related Persons Name: ANDREA MURRAYA Address: home [address] [place] [id number] Name: NIK BARTON Address: [place] [address]
--- OUTSIDE RECORDS SUMMARY | 2022-12-09 11:27 | XMS_ITS | Continuity of Care Document ---
Author Name Unknown Organization [facility] Alessandro Cruz Sidney lt Address [address] [place] [address]- Care Team Providers Care Maintenance Data Analyst Name Role Phone Kilo Smith MD Primary Care Physician Encounter [facility] [place](s): 06/15/20 - 06/22/20 [facility] Adult [address] [place] [address]- Encounter Diagnosis Medicare annual wellness visit, subsequent(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) - 06/14/20 DM (diabetes mellitus), type 2 with peripheral vascular complications(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) - 06/14/20 Diabetes mellitus with renal manifestation(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) - 06/14/20 Arteriosclerotic heart disease (ASHD)(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) - 06/14/20 Benign Essential Hypertension(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) - 06/14/20 Essential familial hyperlipidemia(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) - 06/14/20 Chronic renal disease, stage 3, moderately decreased glomerular filtration rate between 30-59 mL/min/1.73 square meter(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) - 06/14/20 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%(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) - 06/14/20 Hx of acute myocardial infarction;2004 lad stent(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) - 06/14/20 Failed back syndrome(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) - 06/14/20 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(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) - 06/14/20 GERD'egd 2018(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) - 06/14/20 Thrombocytopenia(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) - 06/14/20 Encounter for monitoring long-term proton pump inhibitor therapy(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) - 06/14/20 BPH (benign prostatic hypertrophy)(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) - 06/14/20 Hx of adenomatous colonic polyps(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) - 06/14/20 Attending Physician: Kilo Smith MD Allergies, Adverse Reactions, Alerts Substance Reaction Severity Status No known allergies Active Immunizations Given and Recorded Vaccine Date Status Refusal Reason pneumococcal 13-valent vaccine 03/22/20 Recorded pneumococcal 13-valent [...] VIS 2Admin Note: VIS-GIVEN 3Result Comment: [02/28/2017] [facility]: [id number] [facility] 5Admin Note: VIS 12/18/2010 6Admin Note: VIS given 01/02/10 7Admin Note: vis 03/03 8Result Comment: error 9Admin Note: hep A #1 10Admin Note: vis 01/01 11Admin Note: VIS 12Admin Note: vis-given Medications amLODIPine 5 mg oral tablet 5 mg, 1, tablet, By Mouth, Daily, # 90 tablet, Refills 0, Tot. Refills 0, Maintenance, 03/06/20 15:55:00 EDT, Route to Pharmacy Electronically, [facility], 168, cm, 12/06/19 13:53:00 EDT, Height Start Date: 03/06/20 Stop Date: 06/04/20 Status: Ordered aspirin 81 mg oral enteric coated capsule 1 capsule = 81 mg, By Mouth, Daily, # 120 capsule, 0 Refills, Maintenance, EC Capsule Start Date: 11/13/12 Status: Ordered atorvastatin 20 mg oral tablet 1 tablet = 20 mg, By Mouth, Daily, 0 Refills, Maintenance, 04/18/20 10:14:00 EST, Partial fill uponpatient request Start Date: 04/18/20 Status: Ordered Freestyle Lite Lancets See Instructions, # 200 each, Refills 11, Tot. Refills 11, Maintenance, DX: E11.9 DM PT TESTS TID, 07/25/16 16:21:52, Compound Start Date: 07/25/16 Status: Ordered Freestyle Lite Monitor See Instructions, # 1 each, Maintenance, DX: E11.9 DM PT TESTS TID, 07/25/16 16:21:47, Compound Start Date: 07/25/16 Status: Ordered Freestyle Lite Test Strips See Instructions, # 200 each, Refills 11, Tot. Refills 11, Maintenance, DX: E11.9 DM PT TESTS TID, 08/20/18 7:52:32 EDT, Compound Start Date: 08/20/18 Status: Ordered isosorbide mononitrate 30 mg oral tablet, extended release 30 mg, 1, tablet, By Mouth, Daily in AM, # 30 tablet, Refills 5, Tot. Refills 5, Maintenance, 01/25/20 10:28:00 EDT, Route to Pharmacy Electronically, [facility], 168, cm, 12/06/19 13:53:00 EDT, Height Start Date: 01/25/20 Status: Ordered lamotrigine 25 mg oral tablet 25 mg, 1, tablet, By Mouth, 2 times a day, # 180 tablet, Refills 1, Tot. Refills 1, Maintenance, 08/21/20 16:55:00 EDT, Route to Pharmacy Electronically, [id number], 168, cm, 04/18/20 10:07:00 EST, Height Start Date: 08/21/20 Stop Date: 02/17/21 Status: Ordered lamotrigine 25 mg oral tablet 25 mg, 1, tablet, By Mouth, 2 times a day, for 30 days, # 60 tablet, Refills 5, Tot. Refills 5, Hard Stop 08/21/20 16:55:00 EDT, 02/23/20 16:55:00 EDT, Route to Pharmacy Electronically, [facility], 168, cm, 12/06/19 13:53:00 EDT, Height Start Date: 02/23/20 Stop Date: 08/21/20 Status: Ordered lisinopril 20 mg oral tablet 40 mg, 2, tablet, By Mouth, Daily, new dose, # 180 tablet, Refills 1, Tot. Refills 1, Maintenance, 09/08/19 15:55:00 EDT, Route to Pharmacy Electronically, [facility], new dose, 168, cm, 08/16/19 15:58:00 EDT, Height Start Date: 06/13/17 Stop Date: 03/06/20 Status: Ordered metFORMIN 1000 mg oral tablet 1 tablet = 1,000 mg, By Mouth, 2 times a day, with meals, # 180 tablet, 1 Refills, Maintenance, 03/06/20 15:49:00 EDT, Tablet, [facility], 168, cm, 12/06/19 13:53:00 EDT, Height Start Date: 03/06/20 Stop Date: 09/02/20 Status: Ordered nitroglycerin 0.4 mg sublingual tablet 1 tablet = 0.4 mg, Sublingual, Every 5 minutes, PRN for chest pain, # 25 tablet, 1 Refills, Maintenance, 01/06/18 6:52:02 EDT, Tablet, If chest pain not relieved within 5 minutes of taking the 1st dose, seek immediate medical attention Start Date: 01/06/18 Status: Ordered omeprazole 20 mg oral enteric coated capsule 1 capsule = 20 mg, By Mouth, Daily, before breakfast, # 90 capsule, 1 Refills, Maintenance, 09/08/19 15:55:00 EDT, EC Capsule, [facility], 168, cm, 08/16/19 15:58:00 EDT, Height Start Date: 09/08/19 Stop Date: 03/06/20 Status: Ordered One Touch Ultra Test Strips See Instructions, # 1 box, Refills 11, Tot. Refills 11, Maintenance, test tid diabetes, 11/13/12 11:29:19 Start Date: 11/13/12 Status: Ordered oxyCODONE 10 mg oral tablet 1 tablet = 10 mg, By Mouth, Every 4 hours, # 168 tablet, 0 Refills, Maintenance, 06/06/20 11:10:00 EST, Tablet, [id number], 06/14/20, 168, cm, 04/18/20 10:07:00 EST, Height Start Date: 06/06/20 Status: Ordered Vitamin C By Mouth, Daily, 0 Refills, Maintenance, 04/18/20 10:17:00 EST, Partial fill upon patient request Start Date: 04/18/20 Status: Ordered Vitamin D3 2000 intl units oral capsule 1 capsule = 2,000 International_Units, By Mouth, Daily, # 30 capsule, 11 Refills, Maintenance, 10/25/14 9:13:12 Start Date: 10/25/14 Status: Ordered Problem List Condition Effective Dates Status Health Status Inform ant Arteriosclerotic heart disea se (ASHD)(Confirmed) Active Benign Essential Hypertension(Confirmed) Active Hematuria(Confirmed) 1 Active BPH (benign prostatic hypertrophy)(Confirmed) 2 Active Chronic renal disease, stage 3, moderately [...] 12, 13 07/11/11 Active H/O lumbar discectomy 1997(C onfirmed) 14 1991 Active History of obstructive sleep apnea;ent sx(Confirmed) 15, 16, 17 Active Hx of adenomatous colonic polyps(Confirmed) 18 Active 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 [place] 4, 22had surgery 2011 23sx pending 24had sx 25seeing ENT 26surgery 1991 27MRI 2006 28possible ITP 29monitor 30Tubular adenoma 2014 Diagnosis Diagnosis Type Effective Dates Health Status Clinical Service Informant Medicare annual wellness visit, subsequent 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 06/14/20 DM (diabetes mellitus), type 2 with peripheral vascular complications 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 06/14/20 Diabetes mellitus with renal manifestation 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 06/14/20 Arteriosclerotic heart disease (ASHD) 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 06/14/20 Benign Essential Hypertension 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 06/14/20 Essential familial hyperlipidemia 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 06/14/20 Chronic renal disease, stage 3, moderately decreased glomerular filtration rate between 30-59 mL/min/1.73 square meter 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 06/14/20 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% 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 06/14/20 Hx of acute myocardial infarction;2004 lad stent 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 06/14/20 Failed back syndrome 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 06/14/20 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 06/14/20 GERD'egd 2017 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 06/14/20 Encounter for monitoring long-term proton pump inhibitor therapy 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 06/14/20 BPH (benign prostatic hypertrophy) 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 06/14/20 Hx of adenomatous colonic polyps 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 06/14/20 Thrombocytopenia 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 06/14/20 Vital Signs Most recent to oldest [Reference Range]: 1 2 Height 168 cm (1/21/21 10:06 AM) 168 cm (06/15/20 9:29 AM) Weight 75.2 kg (06/15/20 9:29 AM) Oxygen Saturation [94-100 %] 98 % (06/15/20 9:29 AM) Pulse Rate [55-90 bpm] 68 bpm (06/15/20 9:29 AM) Body Mass Index [18.5-24.99] 26.64 *H* (06/15/20 9:29 AM) Blood Pressure [90-138/55-84 mm Hg] 130/ 60mm Hg (06/15/20 10:06 AM) 138/60mm Hg (06/15/20 9:29 AM) Respiratory Rate [16-30 br/min] 16 br/mi n (06/15/20 9:29 AM) Temperature [96.8-100.4 DegF] 97.6 DegF (06/15/20 9:29 AM) Blood pressure sites Arm, left (06/15/20 10:06 AM) Arm, left (06/15/20 9:29 AM) Temperature Route Oral (06/15/20 9:29 AM) Social History Social History Type Response Smoking Status Former smoker; Tobac co use times per day: smoked < 1/2 PPD; Started at age: 18; Stopped at age: 65; entered on: 12/23/13 Sex
--- OUTSIDE RECORDS SUMMARY | 2022-12-09 11:27 | XMS_ITS | Continuity of Care Document ---
Author Name Unknown Organization [facility] [place] lt Address [address] [place] [address]- Care Team Providers Care Reprint Sorter Name Role Phone Luis RICHARD, Kilo Pendleton Primary Care Physician [phone] Encounter [facility] Date(s): 06/17/20 - 07/17/20 [facility] Adult [address] [place] [address]- Allergies, Adverse Reactions, Alerts Substance Reaction Severity [...] VIS 2Admin Note: VIS-GIVEN 3Result Comment: [02/28/2017] [facility]: [id number] 4[facility] 5Admin Note: VIS 12/18/2010 6Admin Note: VIS given 01/02/10 7Admin Note: vis 03/03 8Result Comment: error 9Admin Note: hep A #1 10Admin Note: vis 01/01 11Admin Note: VIS 12Admin Note: vis-given Medications amLODIPine 5 mg oral tablet 5 mg, 1, tablet, By Mouth, Daily, # 90 tablet, Refills 0, Tot. Refills 0, Maintenance, 03/06/20 15:55:00 EDT, Route to Pharmacy Electronically, [facility], 168, cm, 12/06/19 13:53:00 EDT, Height Start [...] 01/25/20 10:28:00 EDT, Route to Pharmacy Electronically, [facility], 168, cm, 12/06/19 13:53:00 EDT, Height Start Date: 01/25/20 Status: Ordered lamotrigine 25 mg oral tablet 25 mg, 1, tablet, By Mouth, 2 times a day, # 180 tablet, Refills 1, Tot. Refills 1, Maintenance, 08/21/20 16:55:00 EDT, [id number], 168, cm, 04/18/20 10:07:00 EST, Height Start Date: 08/21/20 Stop Date: 02/17/21 Status: Ordered lamotrigine 25 mg oral tablet 25 mg, 1, tablet, By Mouth, 2 times a day, for 30 days, # 60 tablet, Refills 5, Tot. Refills 5, Hard Stop 08/21/20 16:55:00 EDT, 02/23/20 16:55:00 EDT, Route to Pharmacy Electronically, [facility], 168, cm, 12/06/19 13:53:00 EDT, Height Start Date: 02/23/20 Stop Date: 08/21/20 Status: Ordered lisinopril 20 mg oral tablet 40 mg, 2, tablet, By Mouth, Daily, new dose, # 180 tablet, Refills 1, Tot. Refills 1, Maintenance, 09/08/19 15:55:00 EDT, Route to Pharmacy Electronically, [facility], new dose, 168, cm, 08/16/19 15:58:00 EDT, Height Start Date: 06/13/17 Stop Date: 03/06/20 Status: Ordered metFORMIN 1000 mg oral tablet 1 tablet = 1,000 mg, By Mouth, 2 times a day, with meals, # 180 tablet, 1 Refills, Maintenance, 03/06/20 15:49:00 EDT, Tablet, [facility], 168, cm, 12/06/19 13:53:00 EDT, Height Start [...] Refills, Maintenance, 09/08/19 15:55:00 EDT, EC Capsule, [facility], 168, cm, 08/16/19 15:58:00 EDT, Height Start Date: 09/08/19 Stop Date: 03/06/20 Status: Ordered One Touch Ultra Test Strips See Instructions, # 1 box, Refills 11, Tot. Refills 11, Maintenance, test tid diabetes, 11/13/12 11:29:19 Start Date: 11/13/12 Status: Ordered oxyCODONE 10 mg oral tablet 1 tablet = 10 mg, By Mouth, Every 4 hours, # 168 tablet, 0 Refills, Maintenance, 07/04/20 8:01:00 EST, [id number], 07/12/20, 168, cm, 06/26/20 9:34:00 EST, Height Start Date: 07/04/20 Status: Ordered Vitamin C By Mouth, Daily, [...] 07/11/11 Active H/O lumbar discectomy 1997(C onfirmed) 1991 Active History of obstructive sleep apnea;ent sx(Confirmed) 15, 16, 17 Active Hx of adenomatous colonic polyps(Confirmed) 18 Active Inguinal hernia left(Confirmed) Active [facility] current use of opi 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 [place] 4, 22had surgery 2011 23sx pending 24had sx 25seeing ENT 26surgery 1991 27MRI 2006 28possible ITP 29monitor 30Tubular adenoma 2014 Social History Social History Type Response Smoking Status Former smoker; Tobac co use times per day: smoked < 1/2 PPD; Started at age: 18; Stopped at age: 65; entered on: 12/23/13 Sex
--- OUTSIDE RECORDS SUMMARY | 2022-12-09 11:28 | XMS_ITS | Continuity of Care Document ---
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 Name Role Phone Luis RICHARD, Kilo Pendleton Primary Care Physician Encounter [facility] Date(s): 11/09/21 - 02/13/[address] [id number] Attending Physician: Rubén Mathews Jr, MD Admitting Physician: Rubén Mathews Jr, MD Allergies, Adverse Reactions, Alerts Substance Reaction Severity Status Duloxetine 1 rash Active 1GI Immunizations Given and Recorded Vaccine Date Status Refusal Reason SARS-CoV-2 mRNA (dpjzlwe-fyas-yxzbe) vax 1 06/29/21 Given influenza virus vaccine, inactivated 2 03/19/21 Gi [...] vaccine, inactivated 6 08/01/10 Gi radha SARS-CoV-2 (COVID-19) mRNA BNT-162b2 vac 09/29/20 Recorded SARS-CoV-2 (COVID-19) mRNA BNT-162b2 vac 09/08/20 Recorded pneumococcal 13-valent vaccine 03/22/20 Recorded pneumococcal 13-valent vaccine 06/23/14 Given Influenza Virus Vaccine (oldterm) 03/22/20 Recorde d Influenza Virus Vaccine (oldterm) 03/10/19 Recorde d Influenza Virus Vaccine (oldterm) 7 04/03/07 Given Influenza Virus Vaccine (oldterm) 8 03/11/06 Given tetanus/diphtheria/pertussis, acel(Tdap) 12/06/19 Given hepatitis B adult vaccine 07/14/13 Given pneumococcal 23-valent vaccine 05/13/12 Given Zoster Vaccine Live 9 05/22/11 Given Hepatitis A Adult Vaccine 10, 11 08/21/10 Given Influenza Vaccine (oldterm) 12 02/09/09 Given Tet/Diphth/Acel, Pertussis (oldterm) 13 08/04/07 G iven Pneumococcal Vaccine (oldterm) 14 03/11/06 Given 1Result Comment: [facility]-[id number] 2Result Comment: [facility]: [id number] 3Result Comment: [02/28/2017] [facility]: [id number] 4[facility] 5Admin Note: VIS 12/18/2010 6Admin Note: VIS given 01/02/10 7Admin Note: VIS 8Admin Note: VIS-GIVEN 9Admin Note: vis 03/03 10Result Comment: error 11Admin Note: hep A #1 12Admin Note: vis 01/01 13Admin Note: VIS 14Admin Note: vis-given Medications albuterol 90 mcg/inh inhalation [...] DAILY, # 90 tablet, 0 Refills, Maintenance, 07/17/21 12:08:00 EST, Tablet, [facility] #[id number], Partial fill upon patient request if the prescription is for a schedule II opioid drug., 1... Start Date: 07/17/21 Status: Ordered aspirin 81 mg oral enteric coated capsule 1 capsule = 81 mg, By Mouth, Daily, # 120 capsule, 0 Refills, Maintenance, EC Capsule Start Date: 11/13/12 Status: Ordered atorvastatin 80 mg oral tablet 1 tablet, By Mouth, Daily, # 90 tablet, 1 Refills, Maintenance, 01/22/22 12:14:00 EDT, [facility] #[id number], 168, cm, 12/26/21 15:45:00 EDT, Height, 88.5, kg, 11/04/21 16:51:00 EDT, Dry Weight Start Date: 01/22/22 Status: Ordered baclofen 10 mg oral tablet 0.5, tablet, By Mouth, 3 times a day, # 45 tablet, Refills 0, Tot. Refills 0, 08/14/21 13:16:00 EDT, Route to Pharmacy Electronically, [facility] #[id number], 168, cm, 08/01/21 9:15:00 EST, Height, 72.7, kg, 10/12/20 9:18:00 EDT, Dry Weight Start Date: 08/14/21 Status: Ordered clopidogrel 75 mg oral tablet 75 mg, 1, tablet, By Mouth, Daily, Continue medication through 09/2021 unless otherwise instructed.,# 90 tablet, Refills 3, Tot. Refills 3, Maintenance, 12/28/20 9:56:00 EDT, Route to Pharmacy Electronically, [email or web address][id number], Partial fill... Start Date: 12/28/20 Status: Ordered Coreg 3.125 mg oral tablet 3.125 mg, 1, tablet, By Mouth, 2 times a day, # 60 tablet, Refills 11, Tot. Refills 11, Maintenance, 08/01/21 9:34:00 EST, Route to Pharmacy Electronically, [facility] #[id number], Partial fill upon patient request if the prescription is for a sc... Start Date: 08/01/21 Stop Date: 07/27/22 Status: Ordered docusate sodium 100 mg oral capsule 100 mg, 1, capsule, By Mouth, 2 times a day, # 60 capsule, Refills 6, Tot. Refills 6, Maintenance, 01/03/21 8:19:00 EDT, Route to Pharmacy Electronically, [facility] #[id number], Partial fill upon patient request if the prescription is for a sche... Start Date: 01/03/21 Status: Ordered ezetimibe 10 mg oral tablet 1 tablet = 10 mg, By Mouth, Daily, take with atorvastatin, # 30 tablet, 11 Refills, Maintenance, 11/15/21 14:23:00 EDT, Tablet, [facility] #[id number], Partial fill upon patient request if the prescription is for a schedule II opioid drug., 168,... Start Date: 11/15/21 Status: Ordered Farxiga 10 mg oral tablet 1 tablet = 10 mg, By Mouth, Daily, Increased strength, # 30 tablet, 0 Refills, Maintenance, 01/16/22 9:53:00 EDT, Tablet, [facility] #[id number], Increased strength, 168, cm, 12/26/21 15:45:00 EDT, [...] EDT, Supply Start Date: 11/12/20 Status: Ordered Incruse Ellipta 62.5 mcg/inh inhalation powder 1 each, Inhalation, Every 24 hours, doses should be taken at least 24 hours apart mitzy stout,# 30 each, 11 Refills, Maintenance, 12/04/20 9:56:00 EDT, Powder, [facility] #[id number], Partial fill upon patient request if the prescription i... Start Date: 12/04/20 Status: Ordered isosorbide mononitrate 30 mg oral tablet, extended release 1 tablet, By Mouth, Daily in AM, # 30 tablet, 0 Refills, [facility] #[id number], 168, cm, 01/10/21 10:40:00 EDT, Height, 72.7, kg, 10/12/20 9:18:00 EDT, Dry Weight Start Date: 01/28/21 Status: Ordered lamotrigine 25 mg oral tablet 25 mg, 1, tablet, By Mouth, 2 times a day, # 180 tablet, Refills 1, Tot. Refills 1, Maintenance, 01/22/22 12:14:00 EDT, Route to Pharmacy Electronically, [email or web address] #[id number], 168, cm, 12/26/21 15:45:00 EDT, Height, 88.5, kg, 11/04/21 16:51:00... Start Date: 01/22/22 Status: Ordered lidocaine 5% topical film Topically, Daily, 0 Refills, Maintenance, 11/14/20 14:06:00 EDT, Patch, Partial fill upon patient request if the prescription is for a schedule II opioid drug. Start Date: 11/14/20 Status: Ordered lisinopril 5 mg oral tablet 5 mg, 1, tablet, By Mouth, Daily, # 90 tablet, Refills 3, Tot. Refills 3, Maintenance, 02/21/21 16:10:00 EDT, Route to Pharmacy Electronically, [email or web address] #[id number], Partial fill upon patient request if the prescription is for a schedule II opi... Start Date: 02/21/21 Status: Ordered nitroglycerin 0.3 mg sublingual tablet 1 tablet = 0.3 mg, Sublingual, Every 5 minutes, PRN as needed for chest pain, not to exceed 3 doses/15 min--if pain persists, seek medical attention, # 100 tablet, 0 Refills, Maintenance, 12/04/20 10:05:00 EDT, Tablet, [facility] #[id number], Par... Start Date: 12/04/20 Status: Ordered omeprazole 20 mg oral enteric coated capsule 1 capsule = 20 mg, By Mouth, Daily, before breakfast, # 90 capsule, 0 Refills, Maintenance, 11/15/21 14:21:00 EDT, EC Capsule, [facility] #[id number], 168, cm, 11/15/21 12:59:00 EDT, Height, 88.5, kg, 11/04/21 16:51:00 EDT, Dry Weight Start Date: 11/15/21 Stop Date: 02/13/22 Status: Ordered oxyCODONE 10 mg oral tablet 1 tablet = 10 mg, By Mouth, Every 4 hours, PRN as needed for pain, chronic back pain, # 168 tablet,0 Refills, Maintenance, 01/29/22 10:48:00 EDT, Tablet, [facility] #[id number], Partial fill upon patient request if the prescription is for a sche... Start Date: 01/29/22 Status: Ordered Vitamin C 500 mg oral [...] Effective Dates Status Health Status Inform ant Adjustment disorder(Confirmed) Active Adrenal adenoma left;inciden jericho 2020/normal rufina.plasma meranephr/normeta(Confirmed) 11/12/20 Active ASHD cath September 2020 abnormal ef 35% see report(Confirmed) Active Benign Essential Hypertension(Confirmed) Active Hematuria(Confirmed) 1 Active BPH (benign prostatic hypertrophy)(Confirmed) 2 Active Coronary atherosclerosis due to calcified coronary lesion(Confirmed) Active Chronic Prostatitis(Confirmed) 3, 4 Active COPD [...] sleep apnea;ent sx(Confirmed) 15, 16, 17 Active H/O: CVA ([place])(Confirmed) Active 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, SVG-PDA, SVG-diag)(Confirmed) 10/29/20 Active Hx of adenomatous colonic polyps(Confirmed) 18 Active Inguinal hernia left(Confirmed) Active Ischemic cardiomyopathy cath September 2020 ef 35%/Echo Sept 2020 40-45%(Confirmed) 10/20/20 Active 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 current use of opi ate analgesic(Confirmed) 19, 20, 21 Active 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 [place] 4, 22had surgery 2011 23sx pending 24had sx 25seeing ENT 26surgery 1991 27MRI 2006 28possible ITP 29monitor 30Tubular adenoma 2014 Social History Social History Type Response Smoking Status Former smoker; Tobac co use times per day: smoked < 1/2 PPD; Started at age: 18; Stopped at age: 65; entered on: 12/23/13 Sex Care Team Personnel Name: Luis RICHARD, Kilo Pendleton Address: [address] [place] [id number]
--- OUTSIDE RECORDS SUMMARY | 2022-12-09 11:28 | XMS_ITS | Continuity of Care Document ---
Author Name Unknown Organization [facility] [place] lt Address [address] [place] [address]- Care Team Providers Care Butcher Scullion Name Role Phone Luis RICHARD, Kilo Pendleton Primary Care Physician Encounter [facility] Date(s): 02/23/20 - 03/24/20 [facility] [address] [place] [address]- [facility] Allergies, Adverse Reactions, Alerts Substance Reaction Severity Status No known allergies Active Immunizations Given and Recorded Vaccine Date Status Refusal Reason tetanus/diphtheria/pertussis, acel(Tdap) 12/06/19 Given Influenza Virus Vaccine (oldterm) 03/10/19 Recorde d Influenza Virus Vaccine (oldterm) 1 04/03/07 Given Influenza Virus Vaccine (oldterm) 2 03/11/06 Given influenza virus vaccine, inactivated 04/17/18 Give [...] virus vaccine, inactivated 6 08/01/10 Gi radha pneumococcal 13-valent vaccine 06/23/14 Given hepatitis B adult vaccine 07/14/13 Given pneumococcal 23-valent vaccine 05/13/12 Given Zoster Vaccine Live 7 05/22/11 Given Hepatitis A Adult Vaccine 8, 9 08/21/10 Given Influenza Vaccine (oldterm) 10 02/09/09 Given Tet/Diphth/Acel, Pertussis (oldterm) 11 08/04/07 G iven Pneumococcal Vaccine (oldterm) 12 10/17/06 Given 1Admin Note: VIS 2Admin Note: VIS-GIVEN 3Result Comment: [02/28/2017] [facility]: [id number] 4[facility] 5Admin Note: VIS 12/18/2010 6Admin Note: VIS given 01/02/10 7Admin Note: vis 03/03 8Result Comment: error 9Admin Note: hep A #1 10Admin Note: vis 01/01 11Admin Note: VIS 12Admin Note: vis-given Medications amLODIPine 5 mg oral tablet 5 mg, 1, tablet, By Mouth, Daily, # 90 tablet, Refills 0, Tot. Refills 0, Maintenance, 03/06/20 15:55:00 EDT, Route to Pharmacy Electronically, [facility], 168, cm, 12/06/19 13:53:00 EDT, Height Start Date: 03/06/20 Stop Date: 06/04/20 Status: Ordered Anoro Ellipta 62.5 mcg-25 mcg/inh inhalation powder 1 puffs, Inhalation, Daily, # 1 each, 0 Refills, Maintenance, 04/30/17 13:10:15, 1 puffs InhalationDaily,x7 days Start Date: 04/30/17 Stop Date: 05/07/17 Status: Ordered aspirin 81 mg oral enteric coated capsule 1 capsule = 81 mg, By Mouth, Daily, # 120 capsule, 0 Refills, Maintenance, EC Capsule Start Date: 11/13/12 Status: Ordered atorvastatin 80 mg oral tablet 1 tablet = 80 mg, By Mouth, Daily, # 30 tablet, 5 Refills, Maintenance, 03/24/20 11:24:00 EDT, Tablet, [facility] #[id number], 168, cm, 03/09/20 9:08:00 EDT, Height Start Date: 03/24/20 Stop Date: 09/20/20 Status: Ordered Flonase 50 mcg/inh nasal spray 1 sprays, Nares, Both, 2 times a day, # 1 each, 3 Refills, Maintenance, 05/07/16 9:37:51, [place], 1 sprays Nares, Both 2 times a day Start Date: 05/07/16 Status: Ordered Flovent HFA 220 mcg/inh inhalation aerosol 1 puffs = 220 mcg, Inhalation, 2 times a day, use everyday. rinse mouth and throat after use, # 1 each, 11 Refills, Maintenance, 10/17/16 11:39:51, Aerosol Start Date: 10/17/16 Status: Ordered Freestyle Lite Lancets See Instructions, [...] 01/25/20 10:28:00 EDT, Route to Pharmacy Electronically, [facility], 168, cm, 12/06/19 13:53:00 EDT, Height Start Date: 01/25/20 Status: Ordered lamotrigine 25 mg oral tablet 25 mg, 1, tablet, By Mouth, 2 times a day, # 60 tablet, Refills 5, Tot. Refills 5, Maintenance, 02/23/20 16:55:00 EDT, Route to Pharmacy Electronically, [facility], 168, cm, 12/06/19 13:53:00 EDT, Height Start Date: 02/23/20 Stop Date: 08/21/20 Status: Ordered lisinopril 20 mg oral tablet 40 mg, 2, tablet, By Mouth, Daily, new dose, # 180 tablet, Refills 1, Tot. Refills 1, Maintenance, 09/08/19 15:55:00 EDT, Route to Pharmacy Electronically, [facility], new dose, 168, cm, 08/16/19 15:58:00 EDT, Height Start Date: 06/13/17 Stop Date: 03/06/20 Status: Ordered loratadine 10 mg oral tablet 10 mg, 1, tablet, By Mouth, Daily, for seasonal allergies, # 30 tablet, Refills 2, Tot. Refills 2, Maintenance, 10/17/16 11:37:04, Route to Pharmacy Electronically, [id number], [facility] Start Date: 10/17/16 Status: Ordered metFORMIN 1000 mg oral tablet 1 tablet = 1,000 mg, By Mouth, 2 times a day, with meals, # 180 tablet, 1 Refills, Maintenance, 02/23/20 18:15:00 EDT, Tablet, [facility], 168, cm, 12/06/19 13:53:00 EDT, Height Start Date: 02/23/20 Stop Date: 08/21/20 Status: Ordered metFORMIN 1000 mg oral tablet 1 tablet = 1,000 mg, By Mouth, 2 times a day, with meals, # 180 tablet, 1 Refills, Maintenance, 03/06/20 15:49:00 EDT, Tablet, [facility], 168, cm, 12/06/19 13:53:00 EDT, Height Start Date: 03/06/20 Stop Date: 09/02/20 Status: Ordered Metoprolol Succinate ER 100 mg oral tablet, extended release 0.5 tablet = 50 mg, By Mouth, 2 times a day, # 45 Doses, 5 Refills, Maintenance, 01/06/18 6:52:01 EDT, ER Tablet Start Date: 01/06/18 Status: Ordered narcan nasal narcan nasal, See Instructions, # 1 bottle, Refills 1, Tot. Refills 1, Maintenance, see pharamcy note, 06/13/17 11:20:27, Narcan Nasal [place]: 4 mg (contents of 1 nasal spray): Narcan Nasal [place]: 4 mg (contents of 1 nasal spray), See Instructions, # 1... Start Date: 06/13/17 Status: Ordered nitroglycerin 0.4 mg sublingual tablet [...] Refills, Maintenance, 09/08/19 15:55:00 EDT, EC Capsule, [facility] 168, cm, 08/16/19 15:58:00 EDT, Height Start Date: 09/08/19 Stop Date: 03/06/20 Status: Ordered One Touch Ultra Test Strips See Instructions, # 1 box, Refills 11, Tot. Refills 11, Maintenance, test tid diabetes, 11/13/12 11:29:19 Start Date: 11/13/12 Status: Ordered oxyCODONE 10 mg oral tablet 1 tablet = 10 mg, By Mouth, Every 4 hours, # 168 tablet, 0 Refills, Maintenance, 03/14/20 20:18:00 EDT, Tablet, [id number], 03/22/20, 168, cm, 03/09/20 9:08:00 EDT, Height Start Date: 03/14/20 Status: Ordered Ventolin HFA 108 mcg/inh inhalation aerosol with adapter 2 puffs, Inhalation, Every 6 hours, PRN for wheezing, ONLY TAKE WHEN SHORT OF BREATH, # 18 Gm, 0 Refills, Maintenance, 04/30/17 11:43:16, Aerosol Start Date: 04/30/17 Status: Ordered Vitamin D3 2000 intl units [...] Hx of adenomatous colonic polyps(Confirmed) 18 Active detention current use of opi ate analgesic(Confirmed) 19, 20, 21 Active Nasal Polyps(Confirmed) 22, 23, 24, 25 Active Encounter for monitoring andrea g-term proton pump inhibitor therapy(Confirmed) Active Mass of pharynx refer ent(Confirmed) 09/15/17 Active Failed back syndrome(Confirmed) 26 Active Spinal stenosis of lumbar region(Confirmed) 27 Active Thrombocytopenia(Confirmed) 28, 29 Active Tubular adenoma of colon(Confirmed) 30 Active Vitamin D deficiency(Confirmed) Active 1per [...] week 19care ploan reviewed 20comm 2 21PHQ9;2. [place] 4, 22had surgery 2011 23sx pending 24had sx 25seeing ENT 26surgery 1991 27MRI 2006 28possible ITP 29monitor 30Tubular adenoma 2014 Social History Social History Type Response Smoking Status Former smoker; Tobac co use times per day: smoked < 1/2 PPD; Started at age: 18; Stopped at age: 65; entered on: 12/23/13 Sex
--- OUTSIDE RECORDS SUMMARY | 2022-12-09 11:28 | XMS_ITS | Continuity of Care Document ---
Author Name Unknown Organization [facility] jennifer Address [address] [address]- Care Team Providers Care Legal Entity Controller Name Role Phone Luis RICHARD, Kilo Pendleton Primary Care Physician [phone] Encounter [facility] Date(s): 11/09/20 - 12/15/20 [facility] [address] [place] [address] [place] [id number]- Attending Physician: Aristides RICHARD, Elsie Horne Referring Physician: Hunter Payan MD Allergies, Adverse Reactions, Alerts Substance Reaction [...] VIS 2Admin Note: VIS-GIVEN 3Result Comment: [02/28/2017] [facility]: [id number] 4[facility] 5Admin Note: VIS 12/18/2010 [...] opioid drug. Start Date: 11/12/20 Status: Ordered amiodarone 200 mg oral tablet 200 mg, 1, tablet, By Mouth, 2 times a day, # 60 tablet, Refills 0, Maintenance, 11/23/20 12:15:00 EDT, Partial fill upon patient request if the prescription is for a schedule II opioid drug. Start Date: 11/23/20 Status: Ordered amLODIPine 5 mg oral tablet TAKE 1 TABLET BY MOUTH DAILY Start Date: 11/13/20 Status: Ordered aspirin 81 mg oral enteric coated capsule 1 capsule = 81 mg, By Mouth, Daily, # 120 capsule, 0 Refills, Maintenance, EC Capsule Start Date: 11/13/12 Status: Ordered atorvastatin 80 mg oral tablet 1 tablet = 80 mg, By Mouth, Daily at bedtime, 0 Refills, Maintenance, 11/07/20 11:27:00 EDT, Tablet, Partial fill upon patient request if the prescription is for a schedule II opioid drug. Start Date: 11/07/20 Status: Ordered baclofen 10 mg oral tablet 5 mg, 0.5, tablet, By Mouth, 3 times a day, Refills 0, Maintenance, 11/07/20 11:28:00 EDT, Partial fill upon patient request if the prescription is for a schedule II opioid drug. Start Date: 11/07/20 Status: Ordered Baqsimi One Pack 3 mg nasal powder = 3 mg, [place]aris, Right, Once, PRN hypoglycemia, Maintenance, 11/12/20 16:06:00 EDT, Partial fill uponpatient request if the prescription is for a schedule II opioid drug. Start Date: 11/12/20 Status: Ordered bisacodyl 10 mg rectal suppository 1 supp = 10 mg, Rectally, Daily, PRN for constipation, Maintenance, 11/12/20 16:09:00 EDT, Suppository, Partial fill upon patient request if the prescription is for a schedule II opioid drug. Start Date: 11/12/20 Status: Ordered Docusate Sodium Capsule 100 mg, 1, capsule, By Mouth, 2 times a day, Refills 0, Maintenance, 11/07/20 11:28:00 EDT, Partialfill upon patient request if the prescription is for a schedule II opioid drug. Start Date: 11/07/20 Status: Ordered ezetimibe 10 mg oral tablet 1 tablet = 10 mg, By Mouth, Daily, take with atorvastatin, # 30 tablet, 11 Refills, Maintenance, 12/03/20 16:45:00 EDT, Tablet, [facility] #[id number], Partial fill upon patient request if the [...] Maintenance, DX: STROKE I63.9 LIFETIME NEED fax: [phone], 12/05/20 16:06:00 EDT, Supply Start Date: 12/05/20 Status: Ordered Incruse Ellipta 62.5 mcg/inh inhalation powder 1 each, Inhalation, Every 24 hours, doses should be taken at least 24 hours apart repaces spitriva,# 30 each, 11 Refills, Maintenance, 12/04/20 9:56:00 EDT, Powder, [facility] #[id number], Partial fill upon patient request if the prescription i... Start Date: 12/04/20 Status: Ordered isosorbide mononitrate 30 mg oral tablet, extended release TAKE 1 TABLET BY MOUTH DAILY IN THE MORNING Start Date: 11/13/20 Status: Ordered lamotrigine 25 mg oral tablet 25 mg, 1, tablet, By Mouth, 2 times a day, # 180 tablet, Refills 1, Tot. Refills 1, Maintenance, 10/30/20 8:19:00 EDT, Route to Pharmacy Electronically, [facility] #[id number], 168, cm, :43:00 EDT, Height, 72.7, kg, 10/12/20 9:18:00 EDT... [...] 1 Refills, Maintenance, 03/06/20 15:49:00 EDT, Tablet, [facility], 168, cm, 12/06/19 13:53:00 EDT, Height Start Date: 03/06/20 Stop Date: 09/02/20 Status: Ordered nitroglycerin 0.3 mg sublingual tablet 1 tablet = 0.3 mg, Sublingual, Every 5 minutes, PRN as needed for chest pain, not to exceed 3 doses/15 min--if pain persists, seek medical attention, # 100 tablet, 0 Refills, Maintenance, 12/04/20 10:05:00 EDT, Tablet, [facility] #[id number], Par... Start Date: 12/04/20 Status: Ordered omeprazole 20 mg oral enteric coated capsule 1 capsule = 20 mg, By Mouth, Daily, before breakfast, # 90 capsule, 1 Refills, Maintenance, 08/17/20 15:28:00 EDT, EC Capsule, [facility] #[id number], 168, cm, 07/17/20 14:04:00 EST, Height Start Date: 08/17/20 Stop Date: 02/13/21 Status: Ordered oxyCODONE 10 mg oral tablet [...] back pain, # 168 tablet,0 Refills, Maintenance, 12/04/20 9:58:00 EDT, Tablet, [facility] #[id number], Partial fill upon patient request if the prescription is for a sched... Start Date: 12/04/20 Status: Ordered Rain Milk of Magnesia 8% oral suspension 30 mL = 2.4 Gm, By Mouth, Daily at bedtime, PRN for constipation, Maintenance, 11/12/20 16:08:00 EDT, Suspension, Partial fill upon patient request if the prescription is for a schedule II opioid drug. Start Date: 11/12/20 Status: Ordered Plavix 75 mg oral tablet 75 mg, 1, tablet, By Mouth, Daily, Refills 0, Maintenance, 11/07/20 11:28:00 EDT, Partial fill uponpatient request if the prescription is for a schedule II opioid drug. Start Date: 11/07/20 Status: Ordered Tub transfer bench Tub transfer bench, See Instructions, # 1 each, Refills 0, Tot. Refills 0, Maintenance, DX: STROKE I63.9 LIFETIME NEED fax: [phone], 12/05/20 16:06:00 EDT, Supply Start Date: 12/05/20 [...] cath September 2020 ef 35%(Confirmed) 10/20/20 Active assisted current use of opi ate analgesic(Confirmed) 19, 20, 21 Active Mass of left parotid gland c t angio 2020(Confirmed) 11/28/20 Active Nasal Polyps(Confirmed) 22, 23, 24, 25 Active Encounter for monitoring andrea g-term proton pump inhibitor therapy(Confirmed) Active Mass of pharynx refer ent(Confirmed) 09/15/17 Active Failed back syndrome sx 1991(Confirmed) 26 Active Spinal stenosis of lumbar region(Confirmed) 27 Active Syncope November 12 2-(Confirmed) 11/12/20 Active Thrombocytopenia(Confirmed) 28, 29 Active Tubular adenoma of colon another colo;2020(Confirmed) 30 Active Vitamin D deficiency(Confirmed) [...] week 19care ploan reviewed 20comm 2 21PHQ9;2. [place] 4, 22had surgery 2011 23sx pending 24had sx 25seeing ENT 26surgery 1991 27MRI 2006 28possible ITP 29monitor 30Tubular adenoma 2014 Social History Social History Type Response Smoking Status Former smoker; Tobac co use times per day: smoked < 1/2 PPD; Started at age: 18; Stopped at age: 65; entered on: 12/23/13 Sex
--- OUTSIDE RECORDS SUMMARY | 2022-12-09 11:28 | XMS_ITS | Continuity of Care Document ---
Author Name Unknown Organization [facility] Address [address] [place] [address]- Care Team Providers Care Staff Research Scientist Name Role Phone Luis RICHARD, Kilo Pendleton Primary Care Physician [facility]counter [facility] Date(s): 02/21/21 - 03/23/21 [facility] [address] [place] [address]- Attending Physician: Mitesh Lopez Admitting Physician: AdmtrMitesh Referring Physician: Admtr, Ar8 Allergies, Adverse Reactions, Alerts Substance Reaction Severity Status Duloxetine 1 rash Active 1GI Immunizations Given and Recorded Vaccine Date Status Refusal Reason influenza virus vaccine, inactivated 1 03/19/21 Gi radha influenza virus vaccine, inactivated 04/17/18 Give n influenza virus vaccine, inactivated 2 02/28/17 Gi radha influenza virus vaccine, inactivated 03/07/16 Give n influenza virus vaccine, inactivated 03/22/15 Give n influenza virus vaccine, inactivated 3 04/02/14 Re corded influenza virus vaccine, inactivated 04/19/13 Give n influenza virus vaccine, inactivated 01/28/12 Give n influenza virus vaccine, inactivated 4 05/01/11 Gi radha influenza virus vaccine, inactivated 5 08/01/10 Gi radha SARS-CoV-2 (COVID-19) mRNA BNT-162b2 vac 09/29/20 Recorded SARS-CoV-2 (COVID-19) mRNA BNT-162b2 vac 09/08/20 Recorded pneumococcal 13-valent vaccine 03/22/20 Recorded pneumococcal 13-valent vaccine 06/23/14 Given Influenza Virus Vaccine (oldterm) 03/22/20 Recorde d Influenza Virus Vaccine (oldterm) 03/10/19 Recorde d Influenza Virus Vaccine (oldterm) 6 04/03/07 Given Influenza Virus Vaccine (oldterm) 7 03/11/06 Given tetanus/diphtheria/pertussis, acel(Tdap) 12/06/19 Given hepatitis B adult vaccine 07/14/13 Given pneumococcal 23-valent vaccine 05/13/12 Given Zoster Vaccine Live 8 05/22/11 Given Hepatitis A Adult Vaccine 9, 10 08/21/10 Given Influenza Vaccine (oldterm) 11 02/09/09 Given Tet/Diphth/Acel, Pertussis (oldterm) 12 08/04/07 G iven Pneumococcal Vaccine (oldterm) 13 03/11/06 Given 1Result Comment: [facility]: [id number] 2Result Comment: [02/28/2017] [facility]: [id number] [facility] 4Admin Note: VIS 12/18/2010 5Admin Note: VIS given 01/02/10 6Admin Note: VIS 7Admin Note: VIS-GIVEN 8Admin Note: vis 03/03 9Result Comment: error 10Admin Note: hep A #1 11Admin Note: vis 01/01 12Admin Note: VIS 13Admin Note: vis-given Medications acetaminophen 325 mg oral [...] tablet, 3 Refills, Maintenance, 02/05/21 8:58:00 EDT, [facility][id number], 168, cm, 01/30/21 11:10:00 EDT, Height, 72.7, kg, 10/12/20 9:18:00 EDT, Dry Weight Start Date: 02/05/21 Status: Ordered baclofen 5 mg oral tablet 1 tablet = 5 mg, By Mouth, 3 times a day, # 90 tablet, 2 Refills, Maintenance, 01/03/21 8:18:00 EDT, Tablet, [facility] #[id number], Partial fill upon patient request if the prescription is for a schedule II opioid drug., 168, cm, 01/03/21 7:53:0... Start Date: 01/03/21 Status: Ordered clopidogrel 75 mg oral tablet 75 mg, 1, tablet, By Mouth, Daily, Continue medication through 09/2021 unless otherwise instructed.,# 90 tablet, Refills 3, Tot. Refills 3, Maintenance, 12/28/20 9:56:00 EDT, Route to Pharmacy Electronically, [facility] #[id number], Partial fill... Start Date: 12/28/20 Status: Ordered docusate sodium 100 mg oral capsule 100 mg, 1, capsule, By Mouth, 2 times a day, # 60 capsule, Refills 6, Tot. Refills 6, Maintenance, 01/03/21 8:19:00 EDT, Route to Pharmacy Electronically, [facility] #[id number], Partial fill upon patient request if the prescription is for a sche... Start Date: 01/03/21 Status: Ordered ezetimibe 10 mg oral tablet 1 tablet = 10 mg, By Mouth, Daily, take with atorvastatin, # 30 tablet, 11 Refills, Maintenance, 12/03/20 16:45:00 EDT, Tablet, [facility] #[id number], Partial fill upon patient request if the [...] 11 Refills, Maintenance, 12/04/20 9:56:00 EDT, Powder, [facility] #[id number], Partial fill upon patient request if the prescription i... Start Date: 12/04/20 Status: Ordered isosorbide mononitrate 30 mg oral tablet, extended release 1 tablet, By Mouth, Daily in AM, # 30 tablet, 0 Refills, [facility] #[id number], 168, cm, 01/10/21 10:40:00 EDT, Height, 72.7, kg, 10/12/20 9:18:00 EDT, Dry Weight Start Date: 01/28/21 Status: Ordered lamotrigine 25 mg oral tablet 25 mg, 1, tablet, By Mouth, 2 times a day, # 180 tablet, Refills 1, Tot. Refills 1, Maintenance, 10/30/20 8:19:00 EDT, Route to Pharmacy Electronically, [facility] #[id number], 168, cm, :43:00 EDT, Height, 72.7, kg, [...] 02/21/21 16:10:00 EDT, Route to Pharmacy Electronically, [facility] #[id number], Partial fill upon patient request if the prescription is for a schedule II opi... Start Date: 02/21/21 Status: Ordered metFORMIN 1000 mg oral tablet 1 tablet = 1,000 mg, By Mouth, 2 times a day, with meals, # 180 tablet, 1 Refills, Maintenance, 12/27/20 13:44:00 EDT, Tablet, [facility] #[id number], 168, cm, 12/01/20 9:19:00 EDT, Height, 72.7, kg, 10/12/20 9:18:00 EDT, Dry Weight Start Date: 12/27/20 Stop Date: 06/25/21 Status: Ordered metoprolol 25 mg oral tablet, extended release 12.5 mg, 0.5, tablet, By Mouth, Daily, # 30 tablet, Refills 2, Tot. Refills 2, Maintenance, 01/10/21 11:01:00 EDT, Route to Pharmacy Electronically, [facility] #[id number], Partial fill upon patient request if the prescription is for a schedule I... Start Date: 01/10/21 Status: Ordered nitroglycerin 0.3 mg sublingual tablet 1 tablet = 0.3 mg, Sublingual, Every 5 minutes, PRN as needed for chest pain, not to exceed 3 doses/15 min--if pain persists, seek medical attention, # 100 tablet, 0 Refills, Maintenance, 12/04/20 10:05:00 EDT, Tablet, [facility] #[id number], Par... Start Date: 12/04/20 Status: Ordered omeprazole 20 mg oral enteric coated capsule 1 capsule = 20 mg, By Mouth, Daily, before breakfast, # 90 capsule, 0 Refills, Maintenance, 02/13/21 15:28:00 EDT, EC Capsule, [facility] #[id number], 168, cm, 02/05/21 14:18:00 EDT, Height, 72.7, kg, 10/12/20 9:18:00 EDT, Dry Weight Start Date: 02/13/21 Stop Date: 05/14/21 Status: Ordered oxyCODONE 10 mg oral tablet 1 tablet = 10 mg, By Mouth, Every 4 hours, PRN as needed for pain, chronic back pain, # 168 tablet,0 Refills, Maintenance, 03/05/21 11:41:00 EDT, Tablet, [facility] #[id number], Partial fill upon patient request if the prescription is for a sche... Start Date: 03/05/21 Status: Ordered Vitamin C 500 mg oral [...] cath September 2020 ef 35%(Confirmed) 10/20/20 Active half-way current use of opi 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 [place] 4, 22had surgery 2011 23sx pending 24had sx 25seeing ENT 26surgery 1991 27MRI 2006 28possible ITP 29monitor 30Tubular adenoma 2014 Social History Social History Type Response Smoking Status Former smoker; Tobac co use times per day: smoked < 1/2 PPD; Started at age: 18; Stopped at age: 65; entered on: 12/23/13 Sex
--- OUTSIDE RECORDS SUMMARY | 2022-12-09 11:28 | XMS_ITS | Continuity of Care Document ---
Author Name Unknown Organization [facility] Address [address] [place] [address] [address] [place] [address]- Care Team Providers Care Automatic Bandsaw Tender Name Role Phone Luis RICHARD, Kilo Pendleton Primary Care Physician Encounter [facility] Date(s): 10/31/20 - 11/30/[address] [place] [address]- Attending Physician: Mitesh Lopez Admitting Physician: AdmMitesh muller Referring Physician: AdmtrMitesh Allergies, Adverse Reactions, Alerts Substance Reaction Severity [...] VIS 2Admin Note: VIS-GIVEN 3Result Comment: [02/28/2017] [facility]: [id number] 4[facility] 5Admin Note: VIS 12/18/2010 [...] opioid drug. Start Date: 11/07/20 Status: Ordered Glucagon Emergency Kit See Instructions, PRN, Maintenance, Blood Glucose, use as directed for Type 1 Diabetes Mellitus, 11/12/20 16:07:00 EDT, Supply Start Date: 11/12/20 Status: Ordered glucose 40% oral gel 25 mL, By Mouth, Once, Maintenance, 11/12/20 16:06:00 EDT, Gel, Partial fill upon patient request if the prescription is for a schedule II opioid drug. Start Date: 11/12/20 Status: Ordered isosorbide mononitrate 30 mg oral tablet, extended release TAKE 1 TABLET BY MOUTH DAILY IN THE MORNING Start Date: 11/13/20 Status: Ordered lamotrigine 25 mg oral tablet 25 mg, 1, tablet, By Mouth, 2 times a day, # 180 tablet, Refills 1, Tot. Refills 1, Maintenance, 10/30/20 8:19:00 EDT, Route to Pharmacy Electronically, [facility] #[id number], 168, cm, :43:00 EDT, Height, 72.7, kg, [...] 1 Refills, Maintenance, 03/06/20 15:49:00 EDT, Tablet, [facility], 168, cm, 12/06/19 13:53:00 EDT, Height Start Date: 03/06/20 Stop Date: 09/02/20 Status: Ordered omeprazole 20 mg oral enteric coated capsule 1 capsule = 20 mg, By Mouth, Daily, before breakfast, # 90 capsule, 1 Refills, Maintenance, 08/17/20 15:28:00 EDT, EC Capsule, [facility] #[id number], 168, cm, 07/17/20 14:04:00 EST, Height Start Date: 08/17/20 Stop Date: 02/13/21 Status: Ordered oxyCODONE 10 mg oral tablet 1 tablet = 10 mg, By Mouth, Every 4 hours, PRN as needed for pain, 0 Refills, Maintenance, 11/12/2114:57:00 EDT, Tablet, Partial fill upon patient request if the prescription is for a schedule II opioid drug. Start Date: 11/12/20 Status: Ordered Rain Milk of Magnesia 8% [...] opioid drug. Start Date: 11/07/20 Status: Ordered Spiriva HandiHaler 18 mcg Inhalation Capsule 1 capsule, Inhalation, Daily, # 90 capsule, 0 Refills, Maintenance, 11/23/20 12:15:00 EDT, Partial fill upon patient request if the prescription is for a schedule II opioid drug. 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 [place] 4, 22had surgery 2011 23sx pending 24had sx 25seeing ENT 26surgery 1991 27MRI 2006 28possible ITP 29monitor 30Tubular adenoma 2014 Social History Social History Type Response Smoking Status Former smoker; Tobac co use times per day: smoked < 1/2 PPD; Started at age: 18; Stopped at age: 65; entered on: 12/23/13 Sex
--- OUTSIDE RECORDS SUMMARY | 2022-12-09 11:28 | XMS_ITS | Continuity of Care Document ---
Author Name Unknown Organization [facility] jennifer Address [address] [address]- Care Team Providers Care Caustic Operator Name Role Phone Luis RICHARD, Kilo Pendleton Primary Care Physician [phone] Encounter [facility] Date(s): 11/15/20 - 12/15/20 [facility] [address] [address]- Allergies, Adverse Reactions, Alerts Substance Reaction Severity [...] VIS 2Admin Note: VIS-GIVEN 3Result Comment: [02/28/2017] [facility]: [id number] 4[facility] 5Admin Note: VIS 12/18/2010 [...] 11 Refills, Maintenance, 12/03/20 16:45:00 EDT, Tablet, [facility] #[id number], Partial fill upon patient request if the [...] Maintenance, DX: STROKE I63.9 LIFETIME NEED fax: [phone], 12/05/20 16:06:00 EDT, Supply Start Date: 12/05/20 Status: Ordered Incruse Ellipta 62.5 mcg/inh inhalation powder 1 each, Inhalation, Every 24 hours, doses should be taken at least 24 hours apart mitzy stout,# 30 each, 11 Refills, Maintenance, 12/04/20 9:56:00 EDT, Powder, [facility] #[id number], Partial fill upon patient request if the [...] 10/30/20 8:19:00 EDT, Route to Pharmacy Electronically, [facility] #[id number], 168, cm, :43:00 EDT, Height, 72.7, kg, [...] 1 Refills, Maintenance, 03/06/20 15:49:00 EDT, Tablet, [facility], 168, cm, 12/06/19 13:53:00 EDT, Height Start Date: 03/06/20 Stop Date: 09/02/20 Status: Ordered nitroglycerin 0.3 mg sublingual tablet 1 tablet = 0.3 mg, Sublingual, Every 5 minutes, PRN as needed for chest pain, not to exceed 3 doses/15 min--if pain persists, seek medical attention, # 100 tablet, 0 Refills, Maintenance, 12/04/20 10:05:00 EDT, Tablet, [facility] #[id number], Par... Start Date: 12/04/20 Status: Ordered omeprazole 20 mg oral enteric coated capsule 1 capsule = 20 mg, By Mouth, Daily, before breakfast, # 90 capsule, 1 Refills, Maintenance, 08/17/20 15:28:00 EDT, EC Capsule, [facility] #[id number], 168, cm, 07/17/20 14:04:00 EST, Height Start [...] tablet,0 Refills, Maintenance, 12/04/20 9:58:00 EDT, Tablet, [facility] #[id number], Partial fill upon patient request if the [...] Maintenance, DX: STROKE I63.9 LIFETIME NEED fax: [phone], 12/05/20 16:06:00 EDT, Supply Start Date: 12/05/20 [...] cath September 2020 ef 35%(Confirmed) 10/20/20 Active correction current use of opi 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 [place] 4, 22had surgery 2011 23sx pending 24had sx 25seeing ENT 26surgery 1991 27MRI 2006 28possible ITP 29monitor 30Tubular adenoma 2014 Social History Social History Type Response Smoking Status Former smoker; Tobac co use times per day: smoked < 1/2 PPD; Started at age: 18; Stopped at age: 65; entered on: 12/23/13 Sex
--- OUTSIDE RECORDS SUMMARY | 2022-12-09 11:28 | XMS_ITS | Continuity of Care Document ---
Author Name Unknown Organization [facility] Address [address] [place] [address]- Care Team Providers Care Traffic Signal Technician Name Role Phone Luis RICHARD, Kilo Pendleton Primary Care Physician [facility] Date(s): 01/14/22 - 02/13/22 [facility] [address] [place] [address]- [place] Allergies, Adverse Reactions, Alerts Substance Reaction Severity Status Duloxetine 1 rash Active 1GI Immunizations Given and Recorded Vaccine Date Status Refusal Reason SARS-CoV-2 mRNA ([id number]) vax 1 06/29/21 Given influenza virus vaccine, [...] Vaccine (oldterm) 14 03/11/06 Given 1Result Comment: [facility]-[id number] 2Result Comment: [facility]: [id number] 3Result Comment: [02/28/2017] [facility]: [id number] 4[facility] 5Admin Note: VIS 12/18/2010 [...] 0 Refills, Maintenance, 07/17/21 12:08:00 EST, Tablet, [facility] #[id number], Partial fill upon patient request if the [...] tablet, 1 Refills, Maintenance, 01/22/22 12:14:00 EDT, [facility] #[id number], 168, cm, 12/26/21 15:45:00 EDT, Height, 88.5, kg, 11/04/21 16:51:00 EDT, Dry Weight Start Date: 01/22/22 Status: Ordered baclofen 10 mg oral tablet 0.5, tablet, By Mouth, 3 times a day, # 45 tablet, Refills 0, Tot. Refills 0, 08/14/21 13:16:00 EDT, Route to Pharmacy Electronically, [facility] #[id number], 168, cm, 08/01/21 9:15:00 EST, Height, 72.7, kg, 10/12/20 9:18:00 EDT, Dry Weight Start Date: 08/14/21 Status: Ordered clopidogrel 75 mg oral tablet 75 mg, 1, tablet, By Mouth, Daily, Continue medication through 09/2021 unless otherwise instructed.,# 90 tablet, Refills 3, Tot. Refills 3, Maintenance, 12/28/20 9:56:00 EDT, Route to Pharmacy Electronically, [facility] #[id number], Partial fill... Start Date: 12/28/20 Status: Ordered Coreg 3.125 mg oral tablet 3.125 mg, 1, tablet, By Mouth, 2 times a day, # 60 tablet, Refills 11, Tot. Refills 11, Maintenance, 08/01/21 9:34:00 EST, Route to Pharmacy Electronically, [facility] #[id number], Partial fill upon patient request if the prescription is for a sc... Start Date: 08/01/21 Stop Date: 07/27/22 Status: Ordered docusate sodium 100 mg oral capsule 100 mg, 1, capsule, By Mouth, 2 times a day, # 60 capsule, Refills 6, Tot. Refills 6, Maintenance, 01/03/21 8:19:00 EDT, Route to Pharmacy Electronically, [facility] #[id number], Partial fill upon patient request if the prescription is for a sche... Start Date: 01/03/21 Status: Ordered ezetimibe 10 mg oral tablet 1 tablet = 10 mg, By Mouth, Daily, take with atorvastatin, # 30 tablet, 11 Refills, Maintenance, 11/15/21 14:23:00 EDT, Tablet, [facility] #[id number], Partial fill upon patient request if the prescription is for a schedule II opioid drug., 168,... Start Date: 11/15/21 Status: Ordered Farxiga 10 mg oral tablet 1 tablet = 10 mg, By Mouth, Daily, Increased strength, # 30 tablet, 0 Refills, Maintenance, 01/16/22 9:53:00 EDT, Tablet, [facility] #[id number], Increased strength, 168, cm, 12/26/21 15:45:00 EDT, [...] 11 Refills, Maintenance, 12/04/20 9:56:00 EDT, Powder, [facility] #[id number], Partial fill upon patient request if the prescription i... Start Date: 12/04/20 Status: Ordered isosorbide mononitrate 30 mg oral tablet, extended release 1 tablet, By Mouth, Daily in AM, # 30 tablet, 0 Refills, [facility] #[id number], 168, cm, 01/10/21 10:40:00 EDT, Height, 72.7, kg, 10/12/20 9:18:00 EDT, Dry Weight Start Date: 01/28/21 Status: Ordered lamotrigine 25 mg oral tablet 25 mg, 1, tablet, By Mouth, 2 times a day, # 180 tablet, Refills 1, Tot. Refills 1, Maintenance, 01/22/22 12:14:00 EDT, Route to Pharmacy Electronically, [facility] #[id number], 168, cm, 12/26/21 15:45:00 EDT, Height, 88.5, [...] 02/21/21 16:10:00 EDT, Route to Pharmacy Electronically, [facility] #[id number], Partial fill upon patient request if the prescription is for a schedule II opi... Start Date: 02/21/21 Status: Ordered nitroglycerin 0.3 mg sublingual tablet 1 tablet = 0.3 mg, Sublingual, Every 5 minutes, PRN as needed for chest pain, not to exceed 3 doses/15 min--if pain persists, seek medical attention, # 100 tablet, 0 Refills, Maintenance, 12/04/20 10:05:00 EDT, Tablet, [facility] #[id number], Par... Start Date: 12/04/20 Status: Ordered omeprazole 20 mg oral enteric coated capsule 1 capsule = 20 mg, By Mouth, Daily, before breakfast, # 90 capsule, 0 Refills, Maintenance, 11/15/21 14:21:00 EDT, EC Capsule, [facility] #[id number], 168, cm, 11/15/21 12:59:00 EDT, Height, 88.5, kg, 11/04/21 16:51:00 EDT, Dry Weight Start Date: 11/15/21 Stop Date: 02/13/22 Status: Ordered oxyCODONE 10 mg oral tablet 1 tablet = 10 mg, By Mouth, Every 4 hours, PRN as needed for pain, chronic back pain, # 168 tablet,0 Refills, Maintenance, 01/29/22 10:48:00 EDT, Tablet, [facility] #[id number], Partial fill upon patient request if the [...] ef 35%/Echo Sept 2020 40-45%(Confirmed) 10/20/20 Active [facility] current use of opi 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 [place] 4, 22had surgery 2011 23sx pending 24had sx 25seeing ENT 26surgery 1991 27MRI 2006 28possible ITP 29monitor 30Tubular adenoma 2014 Social History Social History Type Response Smoking Status Former smoker; Tobac co use times per day: smoked < 1/2 PPD; Started at age: 18; Stopped at age: 65; entered on: 12/23/13 Sex Care Team Personnel Name: Luis RICHARD, Kilo Pendleton Address: [address] [place] [address] [place], [place] [address]
--- OUTSIDE RECORDS SUMMARY | 2022-12-09 11:28 | XMS_ITS | Continuity of Care Document ---
Author Name Unknown Organization [facility] Alessandro Cruz Sidney lt Address [address] [place] [address]- Care Team Providers Care Vice Chair Name Role Phone Kilo Smith MD Primary Care Physician Encounter [facility] Date(s): 11/15/21 - 11/22/21 [facility] Adult [address] [place] [address]- Encounter Diagnosis Acute colitis 10/2021(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) - 11/15/21 Benign Essential Hypertension(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) - 11/15/21 Diabetes mellitus with renal manifestation(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) - 11/15/21 Attending Physician: Not on Staff, Attending MD Referring Physician: Kilo Smith MD Allergies, Adverse Reactions, Alerts Substance Reaction Severity Status Duloxetine 1 rash Active 1GI Immunizations Given and Recorded Vaccine Date Status Refusal Reason SARS-CoV-2 mRNA ([id number]) vax 1 06/29/21 Given influenza virus vaccine, [...] Vaccine (oldterm) 14 03/11/06 Given 1Result Comment: [id number] 2Result Comment: [facility]: [id number] 3Result Comment: [02/28/2017] [facility]: [id number] [facility] 5Admin Note: VIS 12/18/2010 [...] 0 Refills, Maintenance, 07/17/21 12:08:00 EST, Tablet, [facility] #[id number], Partial fill upon patient request if the [...] tablet, 3 Refills, Maintenance, 02/05/21 8:58:00 EDT, [facility] #[id number], 168, cm, 01/30/21 11:10:00 EDT, Height, 72.7, kg, 10/12/20 9:18:00 EDT, Dry Weight Start Date: 02/05/21 Status: Ordered baclofen 10 mg oral tablet 0.5, tablet, By Mouth, 3 times a day, # 45 tablet, Refills 0, Tot. Refills 0, 08/14/21 13:16:00 EDT, Route to Pharmacy Electronically, [facility] #[id number], 168, cm, 08/01/21 9:15:00 EST, Height, 72.7, kg, 10/12/20 9:18:00 EDT, Dry Weight Start Date: 08/14/21 Status: Ordered clopidogrel 75 mg oral tablet 75 mg, 1, tablet, By Mouth, Daily, Continue medication through 09/2021 unless otherwise instructed.,# 90 tablet, Refills 3, Tot. Refills 3, Maintenance, 12/28/20 9:56:00 EDT, Route to Pharmacy Electronically, [facility] #[id number], Partial fill... Start Date: 12/28/20 Status: Ordered Coreg 3.125 mg oral tablet 3.125 mg, 1, tablet, By Mouth, 2 times a day, # 60 tablet, Refills 11, Tot. Refills 11, Maintenance, 08/01/21 9:34:00 EST, Route to Pharmacy Electronically, [facility] #[id number], Partial fill upon patient request if the prescription is for a sc... Start Date: 08/01/21 Stop Date: 07/27/22 Status: Ordered docusate sodium 100 mg oral capsule 100 mg, 1, capsule, By Mouth, 2 times a day, # 60 capsule, Refills 6, Tot. Refills 6, Maintenance, 01/03/21 8:19:00 EDT, Route to Pharmacy Electronically, [facility] #[id number], Partial fill upon patient request if the prescription is for a sche... Start Date: 01/03/21 Status: Ordered ezetimibe 10 mg oral tablet 1 tablet = 10 mg, By Mouth, Daily, take with atorvastatin, # 30 tablet, 11 Refills, Maintenance, 11/15/21 14:23:00 EDT, Tablet, [facility] #[id number], Partial fill upon patient request if the prescription is for a schedule II opioid drug., 168,... Start Date: 11/15/21 Status: Ordered Farxiga 10 mg oral tablet 1 tablet = 10 mg, By Mouth, Daily, Increased strength, # 30 tablet, 0 Refills, Maintenance, 11/15/21 13:19:00 EDT, Tablet, [facility] #[id number], Increased strength, 168, cm, 11/15/21 12:59:00 EDT, Height, 88.5, kg, 11/04/21 16:51:00 EDT, Dry We... Start Date: 11/15/21 Status: Ordered Freestyle Lancets See Instructions, # [...] 11 Refills, Maintenance, 12/04/20 9:56:00 EDT, Powder, [facility] #[id number], Partial fill upon patient request if the prescription i... Start Date: 12/04/20 Status: Ordered isosorbide mononitrate 30 mg oral tablet, extended release 1 tablet, By Mouth, Daily in AM, # 30 tablet, 0 Refills, [facility] #[id number], 168, cm, 01/10/21 10:40:00 EDT, Height, 72.7, kg, 10/12/20 9:18:00 EDT, Dry Weight Start Date: 01/28/21 Status: Ordered lamotrigine 25 mg oral tablet 25 mg, 1, tablet, By Mouth, 2 times a day, # 180 tablet, Refills 1, Tot. Refills 1, Maintenance, 07/11/21 13:45:00 EST, Route to Pharmacy Electronically, [facility] #[id number], 168, cm, 07/06/21 13:13:00 EST, Height, 72.7, kg, 10/12/20 9:18:00 E... Start Date: 07/11/21 Status: Ordered lidocaine 5% topical film Topically, Daily, 0 Refills, Maintenance, 11/14/20 14:06:00 EDT, Patch, Partial fill upon patient request if the prescription is for a schedule II opioid drug. Start Date: 11/14/20 Status: Ordered lisinopril 5 mg oral tablet 5 mg, 1, tablet, By Mouth, Daily, # 90 tablet, Refills 3, Tot. Refills 3, Maintenance, 02/21/21 16:10:00 EDT, Route to Pharmacy Electronically, [facility] #[id number], Partial fill upon patient request if the prescription is for a schedule II opi... Start Date: 02/21/21 Status: Ordered nitroglycerin 0.3 mg sublingual tablet 1 tablet = 0.3 mg, Sublingual, Every 5 minutes, PRN as needed for chest pain, not to exceed 3 doses/15 min--if pain persists, seek medical attention, # 100 tablet, 0 Refills, Maintenance, 12/04/20 10:05:00 EDT, Tablet, [facility] #[id number], Par... Start Date: 12/04/20 Status: Ordered omeprazole 20 mg oral enteric coated capsule 1 capsule = 20 mg, By Mouth, Daily, before breakfast, # 90 capsule, 0 Refills, Maintenance, 11/15/21 14:21:00 EDT, EC Capsule, [facility] #[id number], 168, cm, 11/15/21 12:59:00 EDT, Height, 88.5, kg, 11/04/21 16:51:00 EDT, Dry Weight Start Date: 11/15/21 Stop Date: 02/13/22 Status: Ordered oxyCODONE 10 mg oral tablet 1 tablet = 10 mg, By Mouth, Every 4 hours, PRN as needed for pain, chronic back pain, # 168 tablet,0 Refills, Maintenance, 10/30/21 9:46:00 EDT, Tablet, [facility] #[id number], Partial fill upon patient request if the prescription is for a sched... 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 [place] 4, 22had surgery 2011 23sx pending 24had sx 25seeing ENT 26surgery 1991 27MRI 2006 28possible ITP 29monitor 30Tubular adenoma 2014 Diagnosis Diagnosis Type Effective Dates Health Status Clinical Service Informant Acute colitis 10/2021 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 11/15/21 Benign Essential Hypertension 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 11/15/21 Diabetes mellitus with renal manifestation 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 11/15/21 Vital Signs Most recent to oldest [Reference Range]: 1 Height 168 cm (11/15/21 12:59 PM) Weight 72.4 kg (11/15/21 12:59 PM) Oxygen Saturation [94-100 %] 100 % (11/15/21 12:59 PM) Pulse Rate [55-90 bpm] 77 bpm (11/15/21 12:59 PM) Body Mass Index [18.5-24.99] 25.65 *H* (11/15/21 12:59 PM) Blood Pressure [90-138/55-84 mm Hg] 105/ 64mm Hg (11/15/21 12:59 PM) Temperature [96.8-100.4 DegF] 97.3 DegF (11/15/21 12:59 PM) Blood pressure sites Arm, right (11/15/21 12:59 PM) Temperature Route Temporal (11/15/21 12:59 PM) Weight Obtained Via Standing scale (11/15/21 12:59 PM) Social History Social History Type Response Smoking Status Former smoker, quit more than 30 days ago entered on: 11/04/21 Sex
--- OUTSIDE RECORDS SUMMARY | 2022-12-09 11:28 | XMS_ITS | Continuity of Care Document ---
Author Name Unknown Organization [facility] Alessandro Cruz Sidney lt Address [address] [place] [address]- Care Team Providers Care Life Insurance Specialist Name Role Phone Luis RICHARD, Kilo Pendleton Primary Care Physician Encounter [facility] Date(s): 01/03/21 - 02/02/21 [facility] Al[facility] Cruz Adult [address] [place] [address]- Allergies, Adverse Reactions, Alerts Substance Reaction Severity [...] VIS 2Admin Note: VIS-GIVEN 3Result Comment: [02/28/2017] [facility]: [id number] 4[facility] 5Admin Note: VIS 12/18/2010 [...] tablet 1 tablet, By Mouth, Daily, # 30 tablet, 0 Refills, Maintenance, 01/10/21 17:48:00 EDT, [facility] #[id number], 168, cm, 01/10/21 10:40:00 EDT, Height, 72.7, kg, 10/12/20 9:18:00 EDT, Dry Weight Start Date: 01/10/21 Status: Ordered Augmentin 875 mg-125 mg oral tablet 20 tablet, 0 Refills, 01/30/21 11:05:00 EDT, Partial fill upon patient request if the prescription is for a schedule II opioid drug. Start Date: 01/30/21 Status: Ordered baclofen 5 mg oral tablet 1 tablet = 5 mg, By Mouth, 3 times a day, # 90 tablet, 2 Refills, Maintenance, 01/03/21 8:18:00 EDT, Tablet, [facility] #[id number], Partial fill upon patient request if the [...] 12/28/20 9:56:00 EDT, Route to Pharmacy Electronically, [facility] #[id number], Partial fill... Start Date: 12/28/20 Status: Ordered docusate sodium 100 mg oral capsule 100 mg, 1, capsule, By Mouth, 2 times a day, # 60 capsule, Refills 6, Tot. Refills 6, Maintenance, 01/03/21 8:19:00 EDT, Route to Pharmacy Electronically, [facility] #[id number], Partial fill upon patient request if the prescription is for a sche... Start Date: 01/03/21 Status: Ordered ezetimibe 10 mg oral tablet 1 tablet = 10 mg, By Mouth, Daily, take with atorvastatin, # 30 tablet, 11 Refills, Maintenance, 12/03/20 16:45:00 EDT, Tablet, [facility] #[id number], Partial fill upon patient request if the [...] Maintenance, DX: STROKE I63.9 LIFETIME NEED fax: [phone], 12/05/20 16:06:00 EDT, Supply Start Date: 12/05/20 Status: Ordered Incruse Ellipta 62.5 mcg/inh inhalation powder 1 each, Inhalation, Every 24 hours, doses should be taken at least 24 hours apart repaces spitriva,# 30 each, 11 Refills, Maintenance, 12/04/20 9:56:00 EDT, Powder, [facility] #[id number], Partial fill upon patient request if the prescription i... Start Date: 12/04/20 Status: Ordered isosorbide mononitrate 30 mg oral tablet, extended release 1 tablet, By Mouth, Daily in AM, # 30 tablet, 0 Refills, [facility] #[id number], 168, cm, 01/10/21 10:40:00 EDT, Height, 72.7, kg, 10/12/20 9:18:00 EDT, Dry Weight Start Date: 01/28/21 Status: Ordered isosorbide mononitrate 30 mg oral tablet, extended release 1 tablet, By Mouth, Daily in AM, # 30 tablet, 0 Refills, [facility] #[id number], 168, cm, 01/10/21 10:40:00 EDT, Height, 72.7, kg, 10/12/20 9:18:00 EDT, Dry Weight Start Date: 01/28/21 Status: Ordered lamotrigine 25 mg oral tablet 25 mg, 1, tablet, By Mouth, 2 times a day, # 180 tablet, Refills 1, Tot. Refills 1, Maintenance, 10/30/20 8:19:00 EDT, Route to Pharmacy Electronically, [facility] #[id number], 168, cm, :43:00 EDT, Height, 72.7, kg, [...] 1 Refills, Maintenance, 12/27/20 13:44:00 EDT, Tablet, [facility] #[id number], 168, cm, 12/01/20 9:19:00 EDT, Height, 72.7, kg, 10/12/20 9:18:00 EDT, Dry Weight Start Date: 12/27/20 Stop Date: 06/25/21 Status: Ordered metoprolol 25 mg oral tablet, extended release 12.5 mg, 0.5, tablet, By Mouth, Daily, # 30 tablet, Refills 2, Tot. Refills 2, Maintenance, 01/10/21 11:01:00 EDT, Route to Pharmacy Electronically, [facility] #[id number], Partial fill upon patient request if the prescription is for a schedule I... Start Date: 01/10/21 Status: Ordered nitroglycerin 0.3 mg sublingual tablet 1 tablet = 0.3 mg, Sublingual, Every 5 minutes, PRN as needed for chest pain, not to exceed 3 doses/15 min--if pain persists, seek medical attention, # 100 tablet, 0 Refills, Maintenance, 12/04/20 10:05:00 EDT, Tablet, [facility] #[id number], Par... Start Date: 12/04/20 Status: Ordered omeprazole 20 mg oral enteric coated capsule 1 capsule = 20 mg, By Mouth, Daily, before breakfast, # 90 capsule, 1 Refills, Maintenance, 08/17/20 15:28:00 EDT, EC Capsule, [facility] #[id number], 168, cm, 07/17/20 14:04:00 EST, Height Start [...] tablet,0 Refills, Maintenance, 01/30/21 15:55:00 EDT, Tablet, [facility] #[id number], Partial fill upon patient request if the prescription is for a sche... Start Date: 01/30/21 Status: Ordered Rain Milk of Magnesia 8% [...] 01/03/21 8:20:00 EDT, Route to Pharmacy Electronically, [facility] #[id number], Partial fill upon patient request if the prescription is for a schedule II opi... Start Date: 01/03/21 Status: Ordered Tub transfer bench Tub transfer bench, See Instructions, # 1 each, Refills 0, Tot. 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 [place] 4, 22had surgery 2011 23sx pending 24had sx 25seeing ENT 26surgery 1991 27MRI 2006 28possible ITP 29monitor 30Tubular adenoma 2014 Social History Social History Type Response Smoking Status Former smoker; Tobac co use times per day: smoked < 1/2 PPD; Started at age: 18; Stopped at age: 65; entered on: 12/23/13 Sex
--- OUTSIDE RECORDS SUMMARY | 2022-12-09 11:28 | XMS_ITS | Continuity of Care Document ---
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) - 08/14/19 DM (diabetes mellitus), type 2 with peripheral vascular complications(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) - 08/14/19 Diabetes mellitus with renal manifestation(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) - 08/14/19 Arteriosclerotic heart disease (ASHD)(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) - 08/14/19 Benign Essential Hypertension(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) - 08/14/19 Essential familial hyperlipidemia(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) - 08/14/19 Chronic renal disease, stage 3, moderately decreased glomerular filtration rate between 30-59 mL/min/1.73 square meter(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) - 08/14/19 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%(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) - 08/14/19 GERD'egd 2017(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) - 08/14/19 Encounter for monitoring long-term proton pump inhibitor therapy(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) - 08/14/19 Hx of acute myocardial infarction;2004 lad stent(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) - 08/14/19 Thrombocytopenia(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) - 08/14/19 Tubular adenoma of colon(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) - 08/14/19 Attending Physician: Kilo Smith MD Allergies, Adverse Reactions, Alerts Substance Reaction Severity Status No known allergies Active Immunizations Given and Recorded Vaccine Date Status Refusal Reason Influenza Virus Vaccine (oldterm) 03/10/19 Recorde d [...] VIS 2Admin Note: VIS-GIVEN 3Result Comment: [02/28/2017] [facility]: [id number] 4[facility] 5Admin Note: VIS 12/18/2010 6Admin Note: VIS given 01/02/10 7Admin Note: vis 03/03 8Result Comment: error 9Admin Note: hep A #1 10Admin Note: vis 01/01 11Admin Note: VIS 12Admin Note: vis-given Medications amLODIPine 5 mg oral tablet 5 mg, 1, tablet, By Mouth, Daily, # 30 tablet, Refills 11, Tot. Refills 11, Maintenance, 08/17/19 15:21:00 EDT, Route to Pharmacy Electronically, [facility], 168, cm, 08/16/19 15:58:00 EDT, Height Start Date: 08/17/19 Status: Ordered Anoro Ellipta 62.5 mcg-25 mcg/inh [...] Daily, # 30 tablet, 5 Refills, Maintenance, 01/15/19 15:44:01 EDT, Tablet Start Date: 01/15/19 Stop Date: 07/14/19 Status: Ordered Flonase 50 mcg/inh nasal spray 1 sprays, Nares, Both, 2 times a day, # 1 each, 3 Refills, Maintenance, 05/07/16 9:37:51, [place], 1 sprays Nares, Both 2 times a [...] tablet, Refills 5, Tot. Refills 5, Maintenance, 03/23/19 10:06:18 EDT, Route to Pharmacy Electronically, [id number], [facility] Start Date: 03/23/19 Status: Ordered lamotrigine 25 mg oral tablet 25 mg, 1, tablet, By Mouth, 2 times a day, # 60 tablet, Refills 5, Tot. Refills 5, Maintenance, 05/17/19 16:10:00 EST, Route to Pharmacy Electronically, [facility], 168, cm, 05/17/19 16:06:00 EST, Height Start Date: 05/17/19 Stop Date: 11/13/19 Status: Ordered lisinopril 20 mg oral tablet 40 mg, 2, tablet, By Mouth, Daily, new dose, # 60 tablet, Refills 5, Tot. Refills 5, Maintenance, 03/23/19 10:06:21 EDT, Route to Pharmacy Electronically, [id number], [facility], new dose Start Date: 06/13/17 Status: Ordered loratadine 10 mg oral tablet 10 mg, 1, tablet, By Mouth, Daily, for seasonal allergies, # 30 tablet, Refills 2, Tot. Refills 2, Maintenance, 10/17/16 11:37:04, Route to Pharmacy Electronically, [id number], [facility] Start Date: 10/17/16 Status: Ordered metFORMIN 1000 mg oral tablet 1 tablet = 1,000 mg, By Mouth, 2 times a day, with meals, # 60 tablet, 6 Refills, Maintenance, 12/18/18 16:03:59 EDT, Tablet Start Date: 12/18/18 Stop Date: 07/16/19 Status: Ordered Metoprolol Succinate ER 100 mg oral tablet, extended release 0.5 tablet = 50 mg, By Mouth, 2 times a day, # 45 Doses, 5 Refills, Maintenance, 01/06/18 6:52:01 EDT, ER Tablet Start Date: 01/06/18 Status: Ordered narcan nasal narcan nasal, See Instructions, # 1 bottle, Refills 1, Tot. Refills 1, Maintenance, see pharamcy note, 06/13/17 11:20:27, Narcan Nasal [place]: 4 mg (contents of 1 nasal spray): Narcan Nasal [place]: 4 mg (contents of 1 nasal spray), [...] mg, By Mouth, Daily, before breakfast, # 30 capsule, 5 Refills, Maintenance, 03/23/19 10:06:20 EDT, EC Capsule Start Date: 03/23/19 Stop Date: 09/19/19 Status: Ordered One Touch Ultra Test Strips See Instructions, # 1 box, Refills 11, Tot. 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 08/14/19 DM (diabetes mellitus), type 2 with peripheral vascular complications 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 08/14/19 Diabetes mellitus with renal manifestation 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 08/14/19 Arteriosclerotic heart disease (ASHD) 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 08/14/19 Benign Essential Hypertension 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 08/14/19 Essential familial hyperlipidemia 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 08/14/19 Chronic renal disease, stage 3, moderately decreased glomerular filtration rate between 30-59 mL/min/1.73 square meter 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 08/14/19 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% 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 08/14/19 GERD'egd 2017 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 08/14/19 Encounter for monitoring long-term proton pump inhibitor therapy 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 08/14/19 Hx of acute myocardial infarction;2004 lad stent 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 08/14/19 Thrombocytopenia 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 08/14/19 Tubular adenoma of colon 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 08/14/19 Vital Signs Most recent to oldest [Reference Range]: 1 Height 168 cm (08/16/19 3:58 PM) Weight 77.5 kg (08/16/19 3:58 PM) Oxygen Saturation [94-100 %] 98 % (08/16/19 3:58 PM) Pulse Rate [55-90 bpm] 78 bpm (08/16/19 3:58 PM) Body Mass Index [18.5-24.99] 27.46 *H* (08/16/19 3:58 PM) Blood Pressure [90-138/55-84 mm Hg] 124/ 70mm Hg (08/16/19 3:58 PM) Respiratory Rate [16-30 br/min] 16 br/mi n (08/16/19 3:58 PM) Temperature [96.8-100.4 DegF] 97.8 DegF (08/16/19 3:58 PM) Mode of Delivery (Oxygen) Room air (08/16/19 3:58 PM) Blood pressure sites Arm, left (08/16/19 3:58 PM) Temperature Route Oral (08/16/19 3:58 PM) Weight Obtained Via Standing scale (08/16/19 3:58 PM) Social History Social History Type Response Smoking Status Former smoker; Tobac co use times per day: smoked < 1/2 PPD; Started at age: 18; Stopped at age: 65; entered on: 12/23/13 Sex
--- OUTSIDE RECORDS SUMMARY | 2022-12-09 11:28 | XMS_ITS | Continuity of Care Document ---
Author Name Unknown Organization 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 Role Phone Kristin Leticia SIMS Primary Care Physician Encounter [facility] Date(s): 10/08/22 - 11/07/22 [facility] Adult [address] [place] [address]- Allergies, Adverse Reactions, Alerts Substance Reaction Severity Status Duloxetine 1 rash Active 1GI Immunizations Given and Recorded Vaccine Date Status Refusal Reason pneumococcal 20-valent conjugate vaccine 08/27/22 Recorded [id number] 12y+ bivalent booster vax 08/27/22 Recorded influenza virus vaccine, inactivated 1 03/28/22 Gi [...] inactivated 6 08/01/10 Gi radha SARS-CoV-2 mRNA ([id number]) vax 7 06/29/21 Given SARS-CoV-2 (COVID-19) mRNA [...] Vaccine (oldterm) 15 03/11/06 Given 1Result Comment: [facility]-[id number] 2Result Comment: [facility]: [id number] 3Result Comment: [02/28/2017] HD [facility]: [id number] [facility] 5Admin Note: VIS 12/18/2010 6Admin Note: VIS given 01/02/10 7Result Comment: [facility]-[id number] 8Admin Note: VIS 9Admin Note: VIS-GIVEN 10Admin Note: vis 03/03 11Result Comment: error 12Admin Note: hep A #1 13Admin Note: vis 01/01 14Admin Note: VIS 15Admin Note: vis-given Medications albuterol 90 mcg/inh inhalation powder 2 puffs = 180 mcg, Inhalation, Every 4 hours, PRN as needed, # 1 each, 0 Refills, Maintenance, 10/07/22 13:35:00 EDT, Powder, [facility] #[id number], 2 puffs Inhalation Every 4 hours,PRN:as needed, 167.6, cm, 10/07/22 13:14:00 EDT, Height, 74, kg... Start Date: 10/07/22 Status: Ordered amLODIPine 5 mg oral tablet 1 tablet = 5 mg, By Mouth, Daily, # 90 tablet, 1 Refills, Maintenance, 10/07/22 21:43:00 EDT, Tablet, [facility] #[id number], 167.6, cm, 10/07/22 13:14:00 EDT, Height, 74, kg, 11/12/22 1:20:00 EST, Dry Weight Start Date: 10/07/22 Status: Ordered aspirin 81 mg oral enteric coated capsule 1 capsule = 81 mg, By Mouth, Daily, # 120 capsule, 0 Refills, Maintenance, EC Capsule Start Date: 11/13/12 Status: Ordered atorvastatin 80 mg oral tablet 1 tablet, By Mouth, Daily, # 90 tablet, 1 Refills, Maintenance, 10/07/22 21:43:00 EDT, [facility] #[id number], 167.6, cm, 10/07/22 13:14:00 EDT, Height, 74, kg, 04/06/22 1:20:00 EST, Dry Weight Start Date: 10/07/22 Status: Ordered Coreg 6.25 mg oral tablet 6.25 mg, 1, tablet, By Mouth, 2 times a day, # 60 tablet, Refills 0, Tot. Refills 0, Maintenance, 10/07/22 21:43:00 EDT, Route to Pharmacy Electronically, [facility] #[id number], 167.6, cm, 10/07/22 13:14:00 EDT, Height, 74, kg, 04/06/22 1:20:00... Start Date: 10/07/22 Status: Ordered ezetimibe 10 mg oral tablet TAKE 1 TABLET BY MOUTH DAILY TAKE WITH ATORVASTATIN Start Date: 10/07/22 Status: Ordered Farxiga 10 mg oral tablet 1 tablet = 10 mg, By Mouth, Daily, Increased strength, # 30 tablet, 0 Refills, Maintenance, 01/16/22 9:53:00 EDT, Tablet, [facility] #[id number], Increased strength, 168, cm, 12/26/21 15:45:00 EDT, [...] Date: 07/06/21 Stop Date: 01/02/22 Status: Ordered isosorbide mononitrate 60 mg oral tablet, extended release 60 mg, 1, tablet, By Mouth, Daily in AM, # 30 tablet, Refills 5, Tot. Refills 5, Maintenance, 05/02/22 13:11:00 EST, Route to Pharmacy Electronically, [facility] #[id number], Partial fill upon patient request if the prescription is for a schedule... Start Date: 05/02/22 Stop Date: 10/29/22 Status: Ordered lisinopril 5 mg oral tablet 5 mg, 1, tablet, By Mouth, Daily, # 90 tablet, Refills 3, Tot. Refills 3, Maintenance, 03/10/22 22:37:00 EDT, Route to Pharmacy Electronically, [facility] #[id number], Partial fill upon patient request if the prescription is for a schedule II opi... Start Date: 03/10/22 Status: Ordered metFORMIN 500 mg oral tablet See Instructions, 1 tablet by mouth daily x 1 week then increase to 1 tablet 2 times a day, # 180 tablet, 0 Refills, Acute 01/19/23 12:00:00 EDT, 10/07/22 21:12:00 EDT, Tablet, [facility] #[id number], Partial fill upon patient request if the pres... Start Date: 10/07/22 Stop Date: 01/19/23 Status: Ordered nitroglycerin 0.3 mg sublingual tablet 1 tablet = 0.3 mg, Sublingual, Every 5 minutes, PRN as needed for chest pain, not to exceed 3 doses/15 min--if pain persists, seek medical attention, # 100 tablet, 0 Refills, Maintenance, 12/04/20 10:05:00 EDT, Tablet, [facility] #[id number], Par... Start Date: 12/04/20 Status: Ordered oxyCODONE 10 mg oral tablet 1 tablet = 10 mg, By Mouth, Every 4 hours, PRN as needed for pain, # 168 tablet, 0 Refills, Maintenance, 11/06/22 6:56:00 EDT, Tablet, [facility] #[id number], Partial fill upon patient request if the prescription is for a schedule II opioid drug.... Start Date: 11/06/22 Status: Ordered pantoprazole 40 mg oral delayed [...] intl units oral capsule 1 capsule = 50 mcg, By Mouth, Daily, # 90 capsule, 0 Refills, Maintenance, 10/07/22 13:36:00 EDT, Capsule, [facility] #[id number], 167.6, cm, 10/07/22 13:14:00 EDT, Height, 74, kg, 04/06/22 1:20:00 EST, Dry Weight Start Date: 10/07/22 Stop Date: 01/05/23 Status: Ordered Problem List Condition Confirmation Course Effective Dates Status H ealth Status Informant Adrenal adenoma left;incidental 2020/normal rufina.plasma meranephr/normeta Confirmed 11/12/20 Active ASHD S/P CABG Confirmed Active Benign Essential Hypertension Confirmed Active BPH (benign prostatic hypertrophy) 1 Confirmed Active Chronic kidney disease, stage 2 (mild) 2 Confirmed Active Chronic pancreatitis Confirmed Active Chronic Prostatitis 3, 4 Confirmed Active 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% 5 Confirmed Active Diabetes mellitus with renal manifestation Confirmed Active Ectatic aorta Confirmed Active Sigmoid diverticulosis 6 Confirmed 03/08/15 Active DM (diabetes mellitus), type 2 with peripheral vascular complications 7 Confirmed Active Elevated PSA 8, 9, 10 Confirmed Active Inclusion cyst mucous rt tonsil Confirmed 09/26/17 Active Erectile dysfunction 11 Confirmed Active Erosive esophagitis Confirmed Active Essential familial hyperlipidemia Confirmed Active H/O: CVA ([place]) Confirmed Active Ischemic cardiomyopathy Confirmed 10/20/20 Active group home current use of opiate analgesic 12, 13, 14 Confirmed Active 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 3no showurology 4bx dec 2012 5fev1 89% 6colonoscopy 2015,mild 7refer teaching 8neg bx 9BIOPSY PLANNED 10DR anish addressing 11had viagra past 12care ploan reviewed 13comm 2 14PHQ9;2. [place] 4, 15surgery 1991 16MRI 2006 17possible ITP 18monitor 19Tubular adenoma 2015 Social History Social History Type Response Smoking Status Former smoker; Tobac co use times per day: smoked < 1/2 PPD; Started at age: 18; Stopped at age: 65; entered on: 12/23/13 Sex Patient Care team information Care Team Personnel Name: Philomena Castillo Position: S RN Supv Member Role: Primary Care Nurse Name: Leticia Foster NP Position: [facility] PCO Associate Professional Member Role: PCP Address: Address: [address] [place] [id number]- Name: Namita Barajas RN Position: S RN Member Role: Primary Care Nurse Name: Tasha Back RN Position: S RN Member Role: Primary Care Nurse Name: Margarita Serrano RN Position: S RN Member Role: Primary Care Nurse Name: Devin Benites RN Position: [facility] RN Member Role: Primary Care Nurse Name: Betsy Millan RN Position: [facility] RN Member Role: Primary Care Nurse Name: Peggy Jansen RN Position: [facility] RN Member Role: Primary Care Nurse Name: Cate Pabon RN Position: [facility] AMB Nurse Member Role: Primary Care Nurse Name: Janette Jones RN Position: [facility] RN Member Role: Primary Care Nurse Name: Vianney Mcneill RN Position: [facility] RN Member Role: Primary Care Nurse Name: Cindy Evans LPN Position: [facility] RN Member Role: Primary Care Nurse Care Team Related Persons Name: INGE MURRAY Address: home [address] [place] [id number] Name: NIK BARTON Address: [place] [address]
--- OUTSIDE RECORDS SUMMARY | 2022-12-09 11:28 | XMS_ITS | Continuity of Care Document ---
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 Role Phone Luis RICHARD, Kilo Pendleton Primary Care Physician Encounter [facility] Date(s): 11/03/21 - 11/08/[address] [address]- Encounter Diagnosis Acute colitis(Final) - 11/05/21 Discharge Disposition: A-D/C Home Attending Physician: Mo Pete MD Admitting Physician: Xavier Wooten MD Referring Physician: Not on Staff, Referring MD Allergies, Adverse Reactions, Alerts Substance Reaction Severity Status Duloxetine 1 rash Active 1GI Immunizations Given and Recorded Vaccine Date Status Refusal Reason SARS-CoV-2 mRNA (yznguok-nzmo-vskso) vax 1 06/29/21 Given influenza virus vaccine, [...] Vaccine (oldterm) 14 03/11/06 Given 1Result Comment: [facility]-[id number] 2Result Comment: [facility]: [id number] 3Result Comment: [02/28/2017] HD [facility]: [id number] [facility] 5Admin Note: VIS 12/18/2010 [...] Status: Ordered amLODIPine 5 mg oral tablet 5 mg, Tablet, By Mouth, Hold for: bp< 100, 11/08/21 9:00:00 EDT Start Date: 11/08/21 Stop Date: 11/08/21 Status: Completed amLODIPine 5 mg oral tablet 1 tablet = 5 mg, By Mouth, Daily, TAKE 1 TABLET BY MOUTH DAILY, # 90 tablet, 0 Refills, Maintenance, 07/17/21 12:08:00 EST, Tablet, [facility] #[id number], Partial fill upon patient request if the [...] tablet, 3 Refills, Maintenance, 02/05/21 8:58:00 EDT, [facility] #[id number], 168, cm, 01/30/21 11:10:00 EDT, Height, 72.7, kg, 10/12/20 9:18:00 EDT, Dry Weight Start Date: 02/05/21 Status: Ordered baclofen 10 mg oral tablet 0.5, tablet, By Mouth, 3 times a day, # 45 tablet, Refills 0, Tot. Refills 0, 08/14/21 13:16:00 EDT, Route to Pharmacy Electronically, [facility] #[id number], 168, cm, 08/01/21 9:15:00 EST, Height, 72.7, kg, 10/12/20 9:18:00 EDT, Dry Weight Start Date: 08/14/21 Status: Ordered clopidogrel 75 mg oral tablet 75 mg, 1, tablet, By Mouth, Daily, Continue medication through 09/2021 unless otherwise instructed.,# 90 tablet, Refills 3, Tot. Refills 3, Maintenance, 12/28/20 9:56:00 EDT, Route to Pharmacy Electronically, [facility] #[id number], Partial fill... Start Date: 12/28/20 Status: Ordered Coreg 3.125 mg oral tablet 3.125 mg, Tablet, By Mouth, 11/08/21 9:00:00 EDT Start Date: 11/08/21 Stop Date: 11/08/21 Status: Completed Coreg 3.125 mg oral tablet 3.125 mg, 1, tablet, By Mouth, 2 times a day, # 60 tablet, Refills 11, Tot. Refills 11, Maintenance, 08/01/21 9:34:00 EST, Route to Pharmacy Electronically, [facility] #[id number], Partial fill upon patient request if the prescription is for a sc... Start Date: 08/01/21 Stop Date: 07/27/22 Status: Ordered Coreg 3.125 mg oral tablet 3.125 mg, Tablet, By Mouth, 11/07/21 21:00:00 EDT Start Date: 11/07/21 Stop Date: 11/07/21 Status: Completed docusate sodium 100 mg oral capsule 100 mg, 1, capsule, By Mouth, 2 times a day, # 60 capsule, Refills 6, Tot. Refills 6, Maintenance, 01/03/21 8:19:00 EDT, Route to Pharmacy Electronically, [facility] #[id number], Partial fill upon patient request if the prescription is for a sche... Start Date: 01/03/21 Status: Ordered docusate-senna 50 mg-187 mg oral tablet 2 tablet, By Mouth, 2 times a day, PRN Constipation, for 7 days, # 60 tablet, 0 Refills, Acute 11/15/21 15:39:00 EDT, 11/08/21 15:39:00 EDT, Tablet, [facility] #[id number], Partial fill upon patient request if the prescription is for a schedule I... Start Date: 11/08/21 Stop Date: 11/15/21 Status: Ordered ezetimibe 10 mg oral tablet 1 tablet = 10 mg, By Mouth, Daily, take with atorvastatin, # 30 tablet, 11 Refills, Maintenance, 12/03/20 16:45:00 EDT, Tablet, [facility] #[id number], Partial fill upon patient request if the prescription is for a schedule II opioid drug., 168,... Start Date: 12/03/20 Status: Ordered Farxiga 5 mg oral tablet 1 tablet = 5 mg, By Mouth, Daily, # 30 tablet, 6 Refills, Maintenance, 07/06/21 13:16:00 EST, Tablet, [facility] #[id number], Partial fill upon patient request if the prescription is for a schedule II opioid drug., 168, cm, 07/06/21 13:13:00 EST,... Start Date: 07/06/21 Status: Ordered Freestyle Lancets See Instructions, # [...] 11 Refills, Maintenance, 12/04/20 9:56:00 EDT, Powder, [facility] #[id number], Partial fill upon patient request if the prescription i... Start Date: 12/04/20 Status: Ordered isosorbide mononitrate 30 mg oral tablet, extended release 1 tablet, By Mouth, Daily in AM, # 30 tablet, 0 Refills, [facility] #[id number], 168, cm, 01/10/21 10:40:00 EDT, Height, 72.7, kg, 10/12/20 9:18:00 EDT, Dry Weight Start Date: 01/28/21 Status: Ordered lamotrigine 25 mg oral tablet 25 mg, 1, tablet, By Mouth, 2 times a day, # 180 tablet, Refills 1, Tot. Refills 1, Maintenance, 07/11/21 13:45:00 EST, Route to Pharmacy Electronically, [facility] #[id number], 168, cm, 07/06/21 13:13:00 EST, Height, 72.7, [...] 02/21/21 16:10:00 EDT, Route to Pharmacy Electronically, [facility] #[id number], Partial fill upon patient request if the prescription is for a schedule II opi... Start Date: 02/21/21 Status: Ordered lisinopril 5 mg oral tablet 5 mg, Tablet, By Mouth, 11/08/21 9:00:00 EDT Start Date: 11/08/21 Stop Date: 11/08/21 Status: Completed MiraLax oral powder for reconstitution = 17 Gm, By Mouth, Daily, for 7 days, # 255 Gm, 0 Refills, Acute 11/15/21 15:41:00 EDT, 11/08/21 15:41:00 EDT, [facility] #[id number], Partial fill upon patient request if the prescription is for a schedule II opioid drug., 17 Gm By Mouth Daily,x... Start Date: 11/08/21 Stop Date: 11/15/21 Status: Ordered nitroglycerin 0.3 mg sublingual tablet 1 tablet = 0.3 mg, Sublingual, Every 5 minutes, PRN as needed for chest pain, not to exceed 3 doses/15 min--if pain persists, seek medical attention, # 100 tablet, 0 Refills, Maintenance, 12/04/20 10:05:00 EDT, Tablet, [facility] #[id number], Par... Start Date: 12/04/20 Status: Ordered omeprazole 20 mg oral enteric coated capsule 1 capsule = 20 mg, By Mouth, Daily, before breakfast, # 90 capsule, 0 Refills, Maintenance, 07/11/21 9:03:00 EST, EC Capsule, [facility] #[id number], 168, cm, 07/06/21 13:13:00 EST, Height, 72.7, kg, 10/12/20 9:18:00 EDT, Dry Weight Start Date: 07/11/21 Stop Date: 10/09/21 Status: Ordered oxyCODONE 10 mg oral tablet 1 tablet = 10 mg, By Mouth, Every 4 hours, PRN as needed for pain, chronic back pain, # 168 tablet,0 Refills, Maintenance, 10/30/21 9:46:00 EDT, Tablet, [facility] #[id number], Partial fill upon patient request if the prescription is for a sched... Start Date: 10/30/21 Status: Ordered oxyCODONE 5 mg oral tablet 10 mg, Tablet, By Mouth, Every 4 hours, Hold for: drowsy, dizzy, RR< 10, PRN for Pain , Severe, Routine, 11/05/21 11:11:00 EDT Start Date: 11/05/21 Stop Date: 11/09/21 Status: Discontinued Vitamin C 500 mg oral tablet 1 [...] due to calcified coronary lesion(Confirmed) Active Chronic renal disease, stage 3, moderately [...] ef 35%/Echo Sept 2020 40-45%(Confirmed) 10/20/20 Active alf current use of opi ate analgesic(Confirmed) 19, 20, 21 Active Mass of left parotid gland c t angio 2020/neg BX 2020;ENT(Confirmed) 11/28/20 Active Nasal Polyps(Confirmed) 22, 23, 24, 25 Active Obese class I(Confirmed) Active Encounter for monitoring phillip g-term proton [...] week 19care ploan reviewed 20comm 2 21PHQ9;2. [place] 4, 22had surgery 2012 23sx pending 24had sx 25seeing ENT 26surgery 1991 27MRI 2007 28possible ITP 29monitor 30Tubular adenoma 2015 Results Radiology Reports * Exam Date Time Procedure Performing Provider Status 11/08/21 11:57 AM Abdomen AP Nydia Kaba; Auth (Verified) Notes: (Abdomen AP) Reason For Exam: Constipation RESULT: XR Abdomen AP XR Abdomen AP 1 view supine INDICATION/CLINICAL QUESTION: Reason: Constipation; Clinical Question(s): Obstruction COMPARISON: 10/15/2012 FINDINGS: Normal bowel gas pattern. No evidence of obstruction. No excessive stool retention. No gross pneumoperitoneum on this supine study. No organomegaly, masses or calcifications. No acute bony findings with minor lumbar dextro scoliosis and degenerative change at L4-L5. IMPRESSION: Unremarkable supine abdominal examination without evidence for obstruction or constipation. WSN: [id number] Ordering Physician: Mo Pete Dictated By: Damaso Burgess MD Dictated Date/Time: 11/08/21 2:53 pm Reviewed By: Damaso Burgess MD Signed By: Damaso Burgess MD Signed Date/Time: 11/08/21 2:53 pm Transcribed By: LUCAS Transcribed Date/Time: 11/08/21 2:51 pm Vital Signs Most recent to oldest [Reference Range]: 1 2 3 Height 168 cm (11/06/21 8:12 PM) 168 cm (11/06/21 7:51 AM) 168 cm (11/04/21 4:51 PM) Weight 88.5 kg (11/04/21 4:51 PM) Oxygen Saturation [94-100 %] 98 % (11/08/21 8:00 AM) 98 % (11/07/21 8:00 PM) 99 % (11/06/21 8:12 PM) Pulse Rate [55-90 bpm] 69 bpm (11/08/21 9:56 AM) 69 bpm (11/08/21 8:00 AM) 67 bpm (11/07/21 8:56 PM) Body Mass Index [18.5-24.99] 31.36 *>HHI* (11/04/21 4:51 PM) Blood Pressure [90-138/55-84 mm Hg] 117/68mm Hg (11/08/21 9:56 AM) 117/68mm Hg (11/08/21 9:55 AM) 117/68mm Hg (11/08/21 9:55 AM) Respiratory Rate [16-30 br/min] 20 br/min (11/08/21 4:55 PM) 18 br/min (11/08/21 9:55 AM) 16 br/min (11/08/21 8:00 AM) Temperature [96.8-100.4 DegF] 97.9 DegF (11/08/21 8:00 AM) 97.9 DegF (11/07/21 8:00 PM) 97.8 DegF (11/06/21 8:12 PM) Liters per Minute 1 L/min (11/04/21 8:55 AM) Mode of Delivery (Oxygen) Room air (11/08/21 8:00 AM) Room air (11/07/21 8:00 PM) Room air (11/06/21 8:12 PM) Blood pressure sites Arm, right (11/08/21 8:00 AM) Arm, right (11/07/21 8:00 PM) Arm, right (11/06/21 8:12 PM) Temperature Route Oral (11/08/21 8:00 AM) Oral (11/07/21 8:00 PM) Oral (11/06/21 8:12 PM) Dry Weight 88.5 kg (11/04/21 4:51 PM) Social History Social History Type Response Smoking Status Former smoker, quit more than 30 days ago entered on: 11/04/21 Sex
--- OUTSIDE RECORDS SUMMARY | 2022-12-09 11:28 | XMS_ITS | Continuity of Care Document ---
Author Name Unknown Organization [facility] Alessandro Cruz Sidney lt Address [address] [place] [address]- Care Team Providers Care Residential Treatment Specialist Name Role Phone Luis RICHARD, Kilo Pendleton Primary Care Physician [phone] Encounter [facility] Date(s): 03/21/21 - 04/20/21 [facility] Alessandro Cruz Adult [address] [place] [address]- Allergies, Adverse Reactions, Alerts Substance Reaction Severity [...] Vaccine (oldterm) 13 03/11/06 Given 1Result Comment: [facility]: 26697-087-89 2Result Comment: [02/28/2017] HD [facility]: [id number] 3[facility] 4Admin Note: VIS 12/18/2010 [...] tablet, 3 Refills, Maintenance, 02/05/21 8:58:00 EDT, [facility] #[id number], 168, cm, 01/30/21 11:10:00 EDT, Height, 72.7, kg, 10/12/20 9:18:00 EDT, Dry Weight Start Date: 02/05/21 Status: Ordered baclofen 10 mg oral tablet 0.5, tablet, By Mouth, 3 times a day, # 45 tablet, Refills 0, Route to Pharmacy Electronically, [facility] #[id number], 168, cm, 03/19/21 15:01:00 EDT, Height, 72.7, kg, 10/12/20 9:18:00 EDT, Dry Weight Start Date: 03/26/21 Status: Ordered clopidogrel 75 mg oral tablet 75 mg, 1, tablet, By Mouth, Daily, Continue medication through 09/2021 unless otherwise instructed.,# 90 tablet, Refills 3, Tot. Refills 3, Maintenance, 12/28/20 9:56:00 EDT, Route to Pharmacy Electronically, [facility] #[id number], Partial fill... Start Date: 12/28/20 Status: Ordered docusate sodium 100 mg oral capsule 100 mg, 1, capsule, By Mouth, 2 times a day, # 60 capsule, Refills 6, Tot. Refills 6, Maintenance, 01/03/21 8:19:00 EDT, Route to Pharmacy Electronically, [facility] #[id number], Partial fill upon patient request if the prescription is for a sche... Start Date: 01/03/21 Status: Ordered ezetimibe 10 mg oral tablet 1 tablet = 10 mg, By Mouth, Daily, take with atorvastatin, # 30 tablet, 11 Refills, Maintenance, 12/03/20 16:45:00 EDT, Tablet, [facility] #[id number], Partial fill upon patient request if the [...] 11 Refills, Maintenance, 12/04/20 9:56:00 EDT, Powder, [facility] #[id number], Partial fill upon patient request if the prescription i... Start Date: 12/04/20 Status: Ordered isosorbide mononitrate 30 mg oral tablet, extended release 1 tablet, By Mouth, Daily in AM, # 30 tablet, 0 Refills, [facility] #[id number], 168, cm, 01/10/21 10:40:00 EDT, Height, 72.7, kg, 10/12/20 9:18:00 EDT, Dry Weight Start Date: 01/28/21 Status: Ordered lamotrigine 25 mg oral tablet 25 mg, 1, tablet, By Mouth, 2 times a day, # 180 tablet, Refills 1, Tot. Refills 1, Maintenance, 10/30/20 8:19:00 EDT, Route to Pharmacy Electronically, [facility] #[id number], 168, cm, :43:00 EDT, Height, 72.7, kg, [...] 02/21/21 16:10:00 EDT, Route to Pharmacy Electronically, [facility] #[id number], Partial fill upon patient request if the prescription is for a schedule II opi... Start Date: 02/21/21 Status: Ordered metFORMIN 1000 mg oral tablet 1 tablet = 1,000 mg, By Mouth, 2 times a day, with meals, # 180 tablet, 1 Refills, Maintenance, 12/27/20 13:44:00 EDT, Tablet, [facility] #[id number], 168, cm, 12/01/20 9:19:00 EDT, Height, 72.7, kg, 10/12/20 9:18:00 EDT, Dry Weight Start Date: 12/27/20 Stop Date: 06/25/21 Status: Ordered metoprolol 25 mg oral tablet, extended release 12.5 mg, 0.5, tablet, By Mouth, Daily, # 30 tablet, Refills 2, Tot. Refills 2, Maintenance, 01/10/21 11:01:00 EDT, Route to Pharmacy Electronically, [facility] #[id number], Partial fill upon patient request if the prescription is for a schedule I... Start Date: 01/10/21 Status: Ordered nitroglycerin 0.3 mg sublingual tablet 1 tablet = 0.3 mg, Sublingual, Every 5 minutes, PRN as needed for chest pain, not to exceed 3 doses/15 min--if pain persists, seek medical attention, # 100 tablet, 0 Refills, Maintenance, 12/04/20 10:05:00 EDT, Tablet, [facility] #[id number], Par... Start Date: 12/04/20 Status: Ordered omeprazole 20 mg oral enteric coated capsule 1 capsule = 20 mg, By Mouth, Daily, before breakfast, # 90 capsule, 0 Refills, Maintenance, 02/13/21 15:28:00 EDT, EC Capsule, [facility] #[id number], 168, cm, 02/05/21 14:18:00 EDT, Height, 72.7, kg, 10/12/20 9:18:00 EDT, Dry Weight Start Date: 02/13/21 Stop Date: 05/14/21 Status: Ordered oxyCODONE 10 mg oral tablet 1 tablet = 10 mg, By Mouth, Every 4 hours, PRN as needed for pain, chronic back pain, # 168 tablet,0 Refills, Maintenance, 03/27/21 12:48:00 EDT, Tablet, [facility] #[id number], Partial fill upon patient request if the prescription is for a sche... 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 [place] 4, 22had surgery 2011 23sx pending 24had sx 25seeing ENT 26surgery 1991 27MRI 2006 28possible ITP 29monitor 30Tubular adenoma 2014 Social History Social History Type Response Smoking Status Former smoker; Tobac co use times per day: smoked < 1/2 PPD; Started at age: 18; Stopped at age: 65; entered on: 12/23/13 Sex
--- OUTSIDE RECORDS SUMMARY | 2022-12-09 11:28 | XMS_ITS | Continuity of Care Document ---
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(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) - 11/28/20 Adrenal adenoma left;incidental 2020(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) - 11/28/20 CVA (cerebral vascular accident)(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) - 12/01/20 Essential familial hyperlipidemia(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) - 12/01/20 Attending Physician: Kilo Smith MD Allergies, Adverse [...] VIS 2Admin Note: VIS-GIVEN 3Result Comment: [02/28/2017] [facility]: [id number] 4[facility] 5Admin Note: VIS 12/18/2010 [...] 11 Refills, Maintenance, 12/03/20 16:45:00 EDT, Tablet, [facility] #[id number], Partial fill upon patient request if the [...] Maintenance, DX: STROKE I63.9 LIFETIME NEED fax: [phone], 12/05/20 16:06:00 EDT, Supply Start Date: 12/05/20 Status: Ordered Incruse Ellipta 62.5 mcg/inh inhalation powder 1 each, Inhalation, Every 24 hours, doses should be taken at least 24 hours apart repaces spitriva,# 30 each, 11 Refills, Maintenance, 12/04/20 9:56:00 EDT, Powder, [facility] #[id number], Partial fill upon patient request if the [...] 10/30/20 8:19:00 EDT, Route to Pharmacy Electronically, [facility] #[id number], 168, cm, 216:43:00 EDT, Height, 72.7, kg, [...] 1 Refills, Maintenance, 03/06/20 15:49:00 EDT, Tablet, [facility], 168, cm, 12/06/19 13:53:00 EDT, Height Start Date: 03/06/20 Stop Date: 09/02/20 Status: Ordered nitroglycerin 0.3 mg sublingual tablet 1 tablet = 0.3 mg, Sublingual, Every 5 minutes, PRN as needed for chest pain, not to exceed 3 doses/15 min--if pain persists, seek medical attention, # 100 tablet, 0 Refills, Maintenance, 12/04/20 10:05:00 EDT, Tablet, [facility] #[id number], Par... Start Date: 12/04/20 Status: Ordered omeprazole 20 mg oral enteric coated capsule 1 capsule = 20 mg, By Mouth, Daily, before breakfast, # 90 capsule, 1 Refills, Maintenance, 08/17/20 15:28:00 EDT, EC Capsule, [facility] #[id number], 168, cm, 07/17/20 14:04:00 EST, Height Start [...] tablet,0 Refills, Maintenance, 12/04/20 9:58:00 EDT, Tablet, [facility] #[id number], Partial fill upon patient request if the [...] Maintenance, DX: STROKE I63.9 LIFETIME NEED fax: [phone], 12/05/20 16:06:00 EDT, Supply Start Date: 12/05/20 [...] cath September 2020 ef 35%(Confirmed) 10/20/20 Active retirement current use of opi ate analgesic(Confirmed) 19, 20, 21 Active Mass of left parotid gland c t angio 2020(Confirmed) 11/28/20 Active Nasal Polyps(Confirmed) 22, 23, 24, 25 Active Encounter for monitoring andrea g-term proton pump inhibitor therapy(Confirmed) Active Mass of pharynx refer ent(Confirmed) 09/15/17 Active Failed back syndrome sx 1991(Confirmed) 26 Active Spinal stenosis of lumbar region(Confirmed) 27 Active Syncope November 12(Confirmed) 11/12/20 Active Thrombocytopenia(Confirmed) 28, 29 Active Tubular [...] week 19care ploan reviewed 20comm 2 21PHQ9;2. 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 lacunes rt thalamus/cerebellum 1 11/03/[address] angiography of head and n [place] abnormal 2 11/01/20 Completed 11. Small acute infarct in the right putamen and adjacent white matter. 2. Mild small vessel disease of the white matter and mild volume loss, slightly progressed from 2006. 3. Tiny chronic lacunar infarcts in the right thalamus and right cerebellum. 4. 2 cm left parotid nodule, as described on CT. 2IMPRESSION: No proximal occlusion or high grade stenosis in the major arteries of the head and neck. Evidence of chronic sinusitis with acute bilateral maxillary and sphenoid sinusitis. 2.1 cm left parotid gland enhancing mass. 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 ENT consultation is recommended. Trace right apical pneumothorax and pneumomediastinum probably post surgical in nature. Clinical correlation is advised. Partially loculated small left pleural effusion and trace right pleural effusion with atelectasis in the visualized upper lobes. Major findings are in agreement with the preliminary report provided by [facility]. Vital Signs Most recent to oldest [Reference Range]: 1 Height 168 cm (12/01/20 9:19 AM) Weight 70.0 kg (12/01/20 9:19 AM) Oxygen Saturation [94-100 %] 98 % (12/01/20 9:19 AM) Pulse Rate [55-90 bpm] 88 bpm (12/01/20 9:19 AM) Body Mass Index [18.5-24.99] 24.8 (12/01/20 9:19 AM) Blood Pressure [90-138/55-84 mm Hg] 120/ 62mm Hg (12/01/20 9:19 AM) Respiratory Rate [16-30 br/min] 16 br/mi n (12/01/20 9:19 AM) Temperature [96.8-100.4 DegF] 98.0 DegF (12/01/20 9:19 AM) Mode of Delivery (Oxygen) Room air (12/01/20 9:19 AM) Blood pressure sites Arm, right (12/01/20 9:19 AM) Temperature Route Oral (12/01/20 9:19 AM) Weight Obtained Via Standing scale (12/01/20 9:19 AM) Social History Social History Type Response Smoking Status Former smoker; Tobac co use times per day: smoked < 1/2 PPD; Started at age: 18; Stopped at age: 65; entered on: 12/23/13 Sex
--- OUTSIDE RECORDS SUMMARY | 2022-12-09 11:28 | XMS_ITS | Continuity of Care Document ---
Author Name Unknown Organization [facility] Address [address] [place] [address]- Care Team Providers Care Lead Ramp Agent Name Role Phone Kristin Leticia SIMS Primary Care Physician [facility]counter [facility] Date(s): 09/16/22 - 10/16/22 [facility] [address] [place] [address]- Attending Physician: Mitesh Lopez Admitting Physician: AdmMitesh muller Referring Physician: [id number] Allergies, Adverse Reactions, Alerts Substance Reaction Severity Status Duloxetine 1 rash Active 1GI Immunizations Given and Recorded Vaccine Date Status Refusal Reason pneumococcal 20-valent conjugate vaccine 08/27/22 Recorded [id number] 12y+ bivalent booster vax 08/27/22 Recorded influenza [...] inactivated 6 08/01/10 Gi radha SARS-CoV-2 mRNA ([id number]) vax 7 06/29/21 Given SARS-CoV-2 (COVID-19) mRNA [...] Vaccine (oldterm) 15 03/11/06 Given 1Result Comment: [facility]-[id number] 2Result Comment: [facility]: [id number] 3Result Comment: [02/28/2017] [facility]: [id number] 4[facility] 5Admin Note: VIS 12/18/2010 6Admin Note: VIS given 01/02/10 7Result Comment: [facility]-[id number] 8Admin Note: VIS 9Admin Note: VIS-GIVEN 10Admin Note: vis 03/03 11Result Comment: error 12Admin Note: hep A #1 13Admin Note: vis 01/01 14Admin Note: VIS 15Admin Note: vis-given Medications albuterol 90 mcg/inh inhalation powder 2 puffs = 180 mcg, Inhalation, Every 4 hours, PRN as needed, # 1 each, 0 Refills, Maintenance, 10/07/22 13:35:00 EDT, Powder, [facility] #[id number], 2 puffs Inhalation Every 4 hours,PRN:as needed, 167.6, cm, 10/07/22 13:14:00 EDT, Height, 74, kg... Start Date: 10/07/22 Status: Ordered amLODIPine 5 mg oral tablet 1 tablet = 5 mg, By Mouth, Daily, # 90 tablet, 1 Refills, Maintenance, 10/07/22 21:43:00 EDT, Tablet, [facility] #[id number], 167.6, cm, 10/07/22 13:14:00 EDT, Height, 74, [...] tablet, 1 Refills, Maintenance, 10/07/22 21:43:00 EDT, [facility] #[id number], 167.6, cm, 10/07/22 13:14:00 EDT, Height, 74, kg, 04/06/22 1:20:00 EST, Dry Weight Start Date: 10/07/22 Status: Ordered Coreg 6.25 mg oral tablet 6.25 mg, 1, tablet, By Mouth, 2 times a day, # 60 tablet, Refills 0, Tot. Refills 0, Maintenance, 10/07/22 21:43:00 EDT, Route to Pharmacy Electronically, [facility] #[id number], 167.6, cm, 10/07/22 13:14:00 EDT, Height, 74, kg, 04/06/22 1:20:00... Start Date: 10/07/22 Status: Ordered ezetimibe 10 mg oral tablet TAKE 1 TABLET BY MOUTH DAILY TAKE WITH ATORVASTATIN Start Date: 10/07/22 Status: Ordered Farxiga 10 mg oral tablet 1 tablet = 10 mg, By Mouth, Daily, Increased strength, # 30 tablet, 0 Refills, Maintenance, 01/16/22 9:53:00 EDT, Tablet, [facility] #[id number], Increased strength, 168, cm, 12/26/21 15:45:00 EDT, [...] 05/02/22 13:11:00 EST, Route to Pharmacy Electronically, [facility] #[id number], Partial fill upon patient request if the prescription is for a schedule... Start Date: 05/02/22 Stop Date: 10/29/22 Status: Ordered lisinopril 5 mg oral tablet 5 mg, 1, tablet, By Mouth, Daily, # 90 tablet, Refills 3, Tot. Refills 3, Maintenance, 03/10/22 22:37:00 EDT, Route to Pharmacy Electronically, [facility] #[id number], Partial fill upon patient request if the prescription is for a schedule II opi... Start Date: 03/10/22 Status: Ordered metFORMIN 500 mg oral tablet See Instructions, 1 tablet by mouth daily x 1 week then increase to 1 tablet 2 times a day, # 180 tablet, 0 Refills, Acute 01/19/23 12:00:00 EDT, 10/07/22 21:12:00 EDT, Tablet, [facility] #[id number], Partial fill upon patient request if the pres... Start Date: 10/07/22 Stop Date: 01/19/23 Status: Ordered nitroglycerin 0.3 mg sublingual tablet 1 tablet = 0.3 mg, Sublingual, Every 5 minutes, PRN as needed for chest pain, not to exceed 3 doses/15 min--if pain persists, seek medical attention, # 100 tablet, 0 Refills, Maintenance, 12/04/20 10:05:00 EDT, Tablet, [facility] #[id number], Par... Start Date: 12/04/20 Status: Ordered oxyCODONE 10 mg oral tablet 1 tablet = 10 mg, By Mouth, Every 4 hours, PRN as needed for pain, # 168 tablet, 0 Refills, Maintenance, 09/24/22 10:27:00 EDT, Tablet, [facility] #[id number], Partial fill upon patient request if the prescription is for a schedule II opioid drug... Start Date: 09/24/22 Status: Ordered pantoprazole 40 mg oral delayed [...] 0 Refills, Maintenance, 10/07/22 13:36:00 EDT, Capsule, [facility] #[id number], 167.6, cm, 10/07/22 13:14:00 EDT, Height, 74, kg, 04/06/22 1:20:00 EST, Dry Weight Start Date: 10/07/22 Stop Date: 01/05/23 Status: Ordered Problem List Condition Confirmation Course Effective Dates Status H ealth Status Informant Adrenal adenoma left;incidental 2020/normal rufina.plasma meranephr/normeta Confirmed 11/12/20 Active ASHD S/P CABG Confirmed Active Benign Essential Hypertension Confirmed Active BPH (benign prostatic hypertrophy) 1 Confirmed Active Chronic pancreatitis Confirmed Active Chronic Prostatitis 2, 3 Confirmed Active 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% 4 Confirmed Active Diabetes mellitus with renal manifestation Confirmed Active Ectatic aorta Confirmed Active Sigmoid diverticulosis 5 Confirmed 03/08/15 Active DM (diabetes mellitus), type 2 with peripheral vascular complications 6 Confirmed Active Elevated PSA 7, 8, 9 Confirmed Active Inclusion cyst mucous rt tonsil Confirmed 09/26/17 Active Erectile dysfunction 10 Confirmed Active Erosive esophagitis Confirmed Active Essential familial hyperlipidemia Confirmed Active H/O: CVA (rain stem,[place]) Confirmed Active Ischemic cardiomyopathy Confirmed 10/20/20 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 use of opiate analgesic 11, 12, 13 Confirmed Active 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 [place] 4, 14surgery 1991 15MRI 2006 16possible ITP 17monitor 18Tubular adenoma 2015 Social History Social History Type Response Smoking Status Former smoker; Tobac co use times per day: smoked < 1/2 PPD; Started at age: 18; Stopped at age: 65; entered on: 12/23/13 Sex Patient Care team information Care Team Personnel Name: Philomena Castillo Position: S RN Supv Member Role: Primary Care Nurse Name: Leticia Foster NP Position: [facility] PCO Associate Professional Member Role: PCP Address: Address: [address] [place] [address]- Name: Namita Barajas RN Position: S RN Member Role: Primary Care Nurse Name: Tasha Back RN Position: S RN Member Role: Primary Care Nurse Name: Margarita Serrano RN Position: S RN Member Role: Primary Care Nurse Name: Devin Benites RN Position: S RN Member Role: Primary Care Nurse Name: Betsy Millan RN Position: [facility] RN Member Role: Primary Care Nurse Name: Peggy Jansen RN Position: [facility] RN Member Role: Primary Care Nurse Name: Cate Pabon RN Position: [facility] PCO RN Member Role: Primary Care Nurse Name: Janette Jones RN Position: [facility] RN Member Role: Primary Care Nurse Name: Vianney Mcneill RN Position: [facility] RN Member Role: Primary Care Nurse Name: Cindy Evans LPN Position: [facility] RN Member Role: Primary Care Nurse Care Team Related Persons Name: INGE MURRAY Address: [address] [place] [address] Name: NIK BARTON Address: [place] [address]
--- OUTSIDE RECORDS SUMMARY | 2022-12-09 11:28 | XMS_ITS | Continuity of Care Document ---
Author Name Unknown Organization [facility] [place] lt Address [address] [place] [address]- Care Team Providers Care Microfilm Duplicating Unit Supervisor Name Role Phone Luis RICHARD, Kilo Pendleton Primary Care Physician Encounter [facility] Date(s): 12/01/19 - 12/31/19 [facility] Adult [address] [place] [address]- [facility] Allergies, Adverse Reactions, Alerts Substance Reaction Severity [...] VIS 2Admin Note: VIS-GIVEN 3Result Comment: [02/28/2017] [facility]: [id number] 4[facility] 5Admin Note: VIS 12/18/2010 6Admin Note: VIS given 01/02/10 7Admin Note: vis 03/03 8Result Comment: error 9Admin Note: hep A #1 10Admin Note: vis 01/01 11Admin Note: VIS 12Admin Note: vis-given Medications amLODIPine 5 mg oral tablet 5 mg, 1, tablet, By Mouth, Daily, # 90 tablet, Refills 1, Tot. Refills 1, Maintenance, 09/08/19 15:55:00 EDT, Route to Pharmacy Electronically, [facility], 168, cm, 08/16/19 15:58:00 EDT, Height Start Date: 09/08/19 Stop Date: 03/06/20 Status: Ordered Anoro Ellipta 62.5 mcg-25 mcg/inh [...] Daily, # 30 tablet, 5 Refills, Maintenance, 10/06/19 15:53:00 EDT, Tablet, [facility], 168, cm, 08/16/19 15:58:00 EDT, Height Start Date: 10/06/19 Stop Date: 04/03/20 Status: Ordered Flonase 50 mcg/inh nasal spray 1 sprays, Nares, Both, 2 times a day, # 1 each, 3 Refills, Maintenance, 05/07/16 9:37:51, [place], 1 sprays Nares, Both 2 times a [...] 03/23/19 10:06:18 EDT, Route to Pharmacy Electronically, [id number], [facility] Start Date: 03/23/19 Status: Ordered lamotrigine 25 mg oral tablet 25 mg, 1, tablet, By Mouth, 2 times a day, # 60 tablet, Refills 5, Tot. Refills 5, Maintenance, 05/17/19 16:10:00 EST, Route to Pharmacy Electronically, [facility], 168, cm, 05/17/19 16:06:00 EST, Height Start Date: 05/17/19 Stop Date: 11/13/19 Status: Ordered lisinopril 20 mg oral tablet 40 mg, 2, tablet, By Mouth, Daily, new dose, # 180 tablet, Refills 1, Tot. Refills 1, Maintenance, 09/08/19 15:55:00 EDT, Route to Pharmacy Electronically, [facility], new dose, 168, cm, 08/16/19 15:58:00 EDT, Height Start Date: 06/13/17 Stop Date: 03/06/20 Status: Ordered loratadine 10 mg oral tablet 10 mg, 1, tablet, By Mouth, Daily, for seasonal allergies, # 30 tablet, Refills 2, Tot. Refills 2, Maintenance, 10/17/16 11:37:04, Route to Pharmacy Electronically, [id number], [facility] Start Date: 10/17/16 Status: Ordered metFORMIN 1000 mg oral tablet 1 tablet = 1,000 mg, By Mouth, 2 times a day, with meals, # 180 tablet, 1 Refills, Maintenance, 09/08/19 15:49:00 EDT, Tablet, [facility], 168, cm, 08/16/19 15:58:00 EDT, Height Start Date: 09/08/19 Stop Date: 03/06/20 Status: Ordered Metoprolol Succinate ER 100 mg oral tablet, extended release 0.5 tablet = 50 mg, By Mouth, 2 times a day, # 45 Doses, 5 Refills, Maintenance, 01/06/18 6:52:01 EDT, ER Tablet Start Date: 01/06/18 Status: Ordered narcan nasal narcan nasal, See Instructions, # 1 bottle, Refills 1, Tot. Refills 1, Maintenance, see pharamcy note, 06/13/17 11:20:27, Narcan Nasal [place]: 4 mg (contents of 1 nasal spray): Narcan Nasal [place]: 4 mg (contents of 1 nasal spray), [...] Refills, Maintenance, 09/08/19 15:55:00 EDT, EC Capsule, [facility]., 168, cm, 08/16/19 15:58:00 EDT, Height Start Date: 09/08/19 Stop Date: 03/06/20 Status: Ordered One Touch Ultra Test Strips See Instructions, # 1 box, Refills 11, Tot. Refills 11, Maintenance, test tid diabetes, 11/13/12 11:29:19 Start Date: 11/13/12 Status: Ordered oxyCODONE 10 mg oral tablet 1 tablet = 10 mg, By Mouth, Every 4 hours, # 168 tablet, 0 Refills, Maintenance, 12/14/19 12:29:00 EDT, Tablet, [facility] 12/22/19, 168, cm, 12/06/19 13:53:00 EDT, Height Start Date: 12/14/19 Status: Ordered Ventolin HFA 108 mcg/inh inhalation [...] Hx of adenomatous colonic polyps(Confirmed) 18 Active halfway current use of opi 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 [place] 4, 22had surgery 2011 23sx pending 24had sx 25seeing ENT 26surgery 1991 27MRI 2006 28possible ITP 29monitor 30Tubular adenoma 2014 Social History Social History Type Response Smoking Status Former smoker; Tobac co use times per day: smoked < 1/2 PPD; Started at age: 18; Stopped at age: 65; entered on: 12/23/13 Sex
--- OUTSIDE RECORDS SUMMARY | 2022-12-09 11:29 | XMS_ITS | Continuity of Care Document ---
Author Name Unknown Organization [facility] Address [address] [place] [address]- Care Team Providers Care Varying Exceptionalities Teacher Name Role Phone Jeniffer Rodriguez MD Primary Care Physician [phone] Encounter [facility] Date(s): 11/12/20 - 11/14/[address] [address]- Encounter Diagnosis Syncope(Final) - 11/12/20 Discharge Disposition: A-D/C Home Attending Physician: Shae Rashid MD Admitting Physician: Peggy Dean MD Referring Physician: Not on Staff, Referring [...] VIS 2Admin Note: VIS-GIVEN 3Result Comment: [02/28/2017] [facility]: [id number] 4[facility] 5Admin Note: VIS 12/18/2010 [...] MOUTH DAILY Start Date: 11/13/20 Status: Ordered amLODIPine 5 mg oral tablet 5 mg, Tablet, By Mouth, 11/14/20 9:00:00 EDT Start Date: 11/14/20 Stop Date: 11/14/20 Status: Completed aspirin 81 mg oral enteric coated capsule [...] baclofen 10 mg oral tablet 5 mg, Tablet, By Mouth, 11/14/20 15:00:00 EDT Start Date: 11/14/20 Stop Date: 11/14/20 Status: Completed Baqsimi One Pack 3 mg nasal powder [...] 10/30/20 8:19:00 EDT, Route to Pharmacy Electronically, [facility] #[id number], 168, cm, :43:00 EDT, Height, 72.7, kg, [...] 1 Refills, Maintenance, 03/06/20 15:49:00 EDT, Tablet, [facility], 168, cm, 12/06/19 13:53:00 EDT, Height Start Date: 03/06/20 Stop Date: 09/02/20 Status: Ordered omeprazole 20 mg oral enteric coated capsule 1 capsule = 20 mg, By Mouth, Daily, before breakfast, # 90 capsule, 1 Refills, Maintenance, 08/17/20 15:28:00 EDT, EC Capsule, [facility] #[id number], 168, cm, 07/17/20 14:04:00 EST, Height Start Date: 08/17/20 Stop Date: 02/13/21 Status: Ordered oxyCODONE 10 mg oral tablet 1 tablet = 10 mg, By Mouth, Every 4 hours, PRN as needed for pain, 0 Refills, Maintenance, 11/12/2114:57:00 EDT, Tablet, Partial fill upon patient request if the prescription is for a schedule II opioid drug. Start Date: 11/12/20 Status: Ordered oxyCODONE 5 mg oral tablet 10 mg, Tablet, By Mouth, Every 4 hours, PRN for Pain , Severe, Routine, 11/12/20 22:30:00 EDT Start Date: 11/12/20 Stop Date: 11/19/20 Status: Ordered Rain Milk of Magnesia 8% [...] opioid drug. 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 [place] 4, 22had surgery 2011 23sx pending 24had sx 25seeing ENT 26surgery 1991 27MRI 2006 28possible ITP 29monitor 30Tubular adenoma 2014 Procedures Procedure Date Related Diagnosis Body Site Status CT of abdomen and pelvis 1 11/12/[address] of brain nil,acute(sinus issues) 11/12/[address] of thorax see report 2 11/12/20 Completed 11. No acute findings within the abdomen or pelvis to explain the patient's pain. 2. Small pericardial effusion, new. 3. Small loculated left pleural effusion, mildly decreased. 4. Minimal infectious or inflammatory changes in the left lower lobe. 5. Ectatic infrarenal aorta measuring up to 2.9 cm. Recommend follow-up ultrasound or CTA in 10 years per simplified ACR and SVS guidelines. Reference: Chadayton EL et al. J Vasc Surg 2018; 67:2-77. Society for Vascular Surgery 2018 practice guidelines on the care of patients with an abdominal aorticaneurysm. 21. Moderate aortic atherosclerotic calcifications. No thoracic aortic aneurysm. 2. Small benign left adrenal adenoma. Results Radiology Reports * Exam Date Time Procedure Performing Provider Status 11/12/20 12:38 PM Chest 2 Views Frontal and Lat Herminia Morse jamar; Auth (Verified) Notes: (Chest 2 Views Frontal and Lat) Reason For Exam: Shortness of Breath, CP;Other: RESULT: Chest 2 Views Frontal and Lat Chest 2 Views Frontal and Lat INDICATION: Hx of Present Illness: Left LUQ and LLQ pain in abdomen.; Reason: Other:; Shortness of Breath, CP; Clinical Question(s): Pneumonia COMPARISON: 11/04/2020 FINDINGS: There is no pneumothorax or pleural effusion. Mild linear atelectasis at the left lung base. No focal infiltrate. Heart size is normal. IMPRESSION: No focal infiltrate. WSN: [id number] Ordering Physician: Sheryl Higginbotham Dictated By: Blanca Parra MD Dictated Date/Time: 11/12/20 2:03 pm Reviewed By: Blanca Parra MD Signed By: Blanca Parra MD Signed Date/Time: 11/12/20 2:03 pm Transcribed By: LUCAS Transcribed Date/Time: 11/12/20 2:02 pm Vital Signs Most recent to oldest [Reference Range]: 1 2 3 Oxygen Saturation [94-100 %] 99 % (11/14/20 10:48 AM) 98 % (11/14/20 7:24 AM) 96 % (11/14/20 4:58 AM) Pulse Rate [55-90 bpm] 80 bpm (11/14/20 10:48 AM) 75 bpm (11/14/20 7:24 AM) 81 bpm (11/14/20 4:58 AM) Blood Pressure [90-138/55-84 mm Hg] 118/63mm Hg (11/14/20 10:48 AM) 103/57mm Hg (11/14/20 8:21 AM) 103/57mm Hg (11/14/20 7:24 AM) Respiratory Rate [16-30 br/min] 16 br/min (11/14/20 4:53 PM) 16 br/min (11/14/20 1:41 PM) 16 br/min (11/14/20 1:40 PM) Temperature [96.8-100.4 DegF] 98.9 DegF (11/14/20 10:48 AM) 98.2 DegF (11/14/20 7:24 AM) 97.6 DegF (11/14/20 4:58 AM) Mode of Delivery (Oxygen) Room air (11/14/20 10:48 AM) Room air (11/14/20 7:24 AM) Room air (11/14/20 4:58 AM) Blood pressure sites Arm, left (11/14/20 10:48 AM) Arm, left (11/14/20 7:24 AM) Arm, left (11/14/20 4:58 AM) Temperature Route Oral (11/14/20 10:48 AM) Oral (11/14/20 7:24 AM) Axillary (11/14/20 4:58 AM) Social History Social History Type Response Smoking Status Former smoker; Tobac co use times per day: smoked < 1/2 PPD; Started at age: 18; Stopped at age: 65; entered on: 12/23/13 Sex
--- OUTSIDE RECORDS SUMMARY | 2022-12-09 11:29 | XMS_ITS | Continuity of Care Document ---
Author Name Unknown Organization [facility] Address [address] [place] [id number]- Care Team Providers Care Travel Manager Name Role Phone Kristin Leticia SIMS Primary Care Physician [facility]counter [facility] Date(s): 06/16/22 - 07/16/22 [facility] [address] [place] [phone]- [place] Allergies, Adverse Reactions, Alerts Substance Reaction [...] inactivated 6 08/01/10 Gi radha SARS-CoV-2 mRNA ([id number]) vax 7 06/29/21 Given SARS-CoV-2 (COVID-19) mRNA [...] Vaccine (oldterm) 15 03/11/06 Given 1Result Comment: [facility]-[id number] 2Result Comment: [facility]: [id number] 3Result Comment: [02/28/2017] HD [facility]: [id number] [facility] 5Admin Note: VIS 12/18/2010 6Admin Note: VIS given 01/02/10 7Result Comment: [facility]-[id number] 8Admin Note: VIS 9Admin Note: VIS-GIVEN 10Admin [...] 0 Refills, Maintenance, 06/03/22 11:01:00 EST, Tablet, [facility] #[id number], Partial fill upon patient request if the [...] tablet, 1 Refills, Maintenance, 01/22/22 12:14:00 EDT, [facility] #[id number], 168, cm, 12/26/21 15:45:00 EDT, Height, 88.5, kg, 11/04/21 16:51:00 EDT, Dry Weight Start Date: 01/22/22 Status: Ordered clopidogrel 75 mg oral tablet 75 mg, 1, tablet, By Mouth, Daily, Continue medication through 09/2021 unless otherwise instructed.,# 90 tablet, Refills 3, Tot. Refills 3, Maintenance, 12/28/20 9:56:00 EDT, Route to Pharmacy Electronically, [facility] #[id number], Partial fill... Start Date: 12/28/20 Status: Ordered Coreg 6.25 mg oral tablet 6.25 mg, 1, tablet, By Mouth, 2 times a day, # 60 tablet, Refills 0, Tot. Refills 0, Maintenance, 04/08/22 15:17:00 EST, Route to Pharmacy Electronically, [facility], Partial fill upon patient request if the prescription is for a schedul... Start Date: 04/08/22 Status: Ordered Farxiga 10 mg oral tablet 1 tablet = 10 mg, By Mouth, Daily, Increased strength, # 30 tablet, 0 Refills, Maintenance, 01/16/22 9:53:00 EDT, Tablet, [facility] #[id number], Increased strength, 168, cm, 12/26/21 15:45:00 EDT, [...] 05/02/22 13:11:00 EST, Route to Pharmacy Electronically, [facility] #[id number], Partial fill upon patient request if the prescription is for a schedule... Start Date: 05/02/22 Stop Date: 10/29/22 Status: Ordered lamotrigine 25 mg oral tablet 25 mg, 1, tablet, By Mouth, 2 times a day, # 180 tablet, Refills 1, Tot. Refills 1, Maintenance, 01/22/22 12:14:00 EDT, Route to Pharmacy Electronically, [facility] #[id number], 168, cm, 12/26/21 15:45:00 EDT, Height, 88.5, kg, 11/04/21 16:51:00... Start Date: 01/22/22 Status: Ordered lisinopril 5 mg oral tablet 5 mg, 1, tablet, By Mouth, Daily, # 90 tablet, Refills 3, Tot. Refills 3, Maintenance, 03/10/22 22:37:00 EDT, Route to Pharmacy Electronically, [facility] #[id number], Partial fill upon patient request if the prescription is for a schedule II opi... Start Date: 03/10/22 Status: Ordered nitroglycerin 0.3 mg sublingual tablet 1 tablet = 0.3 mg, Sublingual, Every 5 minutes, PRN as needed for chest pain, not to exceed 3 doses/15 min--if pain persists, seek medical attention, # 100 tablet, 0 Refills, Maintenance, 12/04/20 10:05:00 EDT, Tablet, [facility] #[id number], Par... Start Date: 12/04/20 Status: Ordered oxyCODONE 10 mg oral tablet 1 tablet = 10 mg, By Mouth, Every 4 hours, PRN as needed for pain, chronic back pain, # 168 tablet,0 Refills, Maintenance, 07/02/22 14:16:00 EST, Tablet, [facility] #[id number], Partial fill upon patient request if the prescription is for a sche... 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 current use of opiate analgesic 16, 17, 18 Confirmed Active 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/neg BX 2020;ENT Confirmed 11/28/20 Active Dilated pancreatic duct S/P EGD/US 06/07/22 Confirmed 11/05/21 Active Encounter for monitoring long-term proton pump inhibitor therapy Confirmed Active Failed back syndrome sx 1991 Confirmed Active Spinal stenosis of lumbar region 20 Confirmed Active 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 [place] 4, 19surgery 1991 20MRI 2006 21possible ITP 22monitor 23Tubular adenoma 2015 Social History Social History Type Response Smoking Status Former smoker; Tobac co use times per day: smoked < 1/2 PPD; Started at age: 18; Stopped at age: 65; entered on: 12/23/13 Sex Patient Care team information Care Team Personnel Name: Philomena Castillo Position: [facility] RN Supv Member Role: Primary Care Nurse Name: Leticia Foster NP Position: [facility] PCO Associate Professional Member Role: PCP Address: Address: [address] [place] [id number]- Name: Namita Barajas RN Position: [facility] RN Member Role: Primary Care Nurse Name: Tasha Back RN Position: [facility] RN Member Role: Primary Care Nurse Name: Jenny Bustillos RN Position: [facility] RN Member Role: Primary Care Nurse Name: Margarita Serrano RN Position: S RN Member Role: Primary Care Nurse Name: Devin Benites RN Position: [facility] RN Member Role: Primary Care Nurse Name: Betsy Millan RN Position: [facility] RN Member Role: Primary Care Nurse Name: Peggy Jansen RN Position: [facility] RN Member Role: Primary Care Nurse Name: Cate Pabon RN Position: [facility] PCO RN Member Role: Primary Care Nurse Name: Janette Jones RN Position: [facility] RN Member Role: Primary Care Nurse Name: Vianney Mcneill RN Position: [facility] RN Member Role: Primary Care Nurse Name: Cindy Evans LPN Position: [facility] RN Member Role: Primary Care Nurse Care Team Related Persons Name: INGE MURRAY Address: [address] [place] [address] Name: NIK BARTON Address: [place] [address]
--- OUTSIDE RECORDS SUMMARY | 2022-12-09 11:29 | XMS_ITS | Continuity of Care Document ---
Author Name Unknown Organization [facility] Address [address] [place] [address]- Care Team Providers Care Checker [employer] Name Role Phone Luis RICHARD, Kilo Pendleton Primary Care Physician [facility]counter [facility] Date(s): 05/04/20 - 06/03/20 [facility] [address] [place] [address]- Allergies, Adverse Reactions, Alerts Substance Reaction Severity [...] 2Admin Note: VIS-GIVEN 3Result Comment: [02/28/2017] HD [facility]: [id number] 4[facility] 5Admin Note: VIS 12/18/2010 6Admin Note: VIS given 01/02/10 7Admin Note: vis 03/03 8Result Comment: error 9Admin Note: hep A #1 10Admin Note: vis 01/01 11Admin Note: VIS 12Admin Note: vis-given Medications amLODIPine 5 mg oral tablet 5 mg, 1, tablet, By Mouth, Daily, # 90 tablet, Refills 0, Tot. Refills 0, Maintenance, 03/06/20 15:55:00 EDT, Route to Pharmacy Electronically, [facility], 168, cm, 12/06/19 13:53:00 EDT, Height [...] 01/25/20 10:28:00 EDT, Route to Pharmacy Electronically, [facility], 168, cm, 12/06/19 13:53:00 EDT, Height Start Date: 01/25/20 Status: Ordered lamotrigine 25 mg oral tablet 25 mg, 1, tablet, By Mouth, 2 times a day, # 180 tablet, Refills 1, Tot. Refills 1, Maintenance, 08/21/20 16:55:00 EDT, Route to Pharmacy Electronically, [facility] #[id number], 168, cm, 04/18/20 10:07:00 EST, Height Start Date: 08/21/20 Stop Date: 02/17/21 Status: Ordered lamotrigine 25 mg oral tablet 25 mg, 1, tablet, By Mouth, 2 times a day, for 30 days, # 60 tablet, Refills 5, Tot. Refills 5, Hard Stop 08/21/20 16:55:00 EDT, 02/23/20 16:55:00 EDT, Route to Pharmacy Electronically, [facility], 168, cm, 12/06/19 13:53:00 EDT, Height Start Date: 02/23/20 Stop Date: 08/21/20 Status: Ordered lisinopril 20 mg oral tablet 40 mg, 2, tablet, By Mouth, Daily, new dose, # 180 tablet, Refills 1, Tot. Refills 1, Maintenance, 09/08/19 15:55:00 EDT, Route to Pharmacy Electronically, [facility], new dose, 168, cm, 08/16/19 15:58:00 EDT, Height Start Date: 06/13/17 Stop Date: 03/06/20 Status: Ordered metFORMIN 1000 mg oral tablet 1 tablet = 1,000 mg, By Mouth, 2 times a day, with meals, # 180 tablet, 1 Refills, Maintenance, 03/06/20 15:49:00 EDT, Tablet, [facility], 168, cm, 12/06/19 13:53:00 EDT, Height [...] Refills, Maintenance, 09/08/19 15:55:00 EDT, EC Capsule, [facility] 168, cm, 08/16/19 15:58:00 EDT, Height Start Date: 09/08/19 Stop Date: 03/06/20 Status: Ordered One Touch Ultra Test Strips See Instructions, # 1 box, Refills 11, Tot. Refills 11, Maintenance, test tid diabetes, 11/13/12 11:29:19 Start Date: 11/13/12 Status: Ordered oxyCODONE 10 mg oral tablet 1 tablet = 10 mg, By Mouth, Every 4 hours, # 168 tablet, 0 Refills, Maintenance, 05/09/20 8:00:00 EST, Tablet, [facility] #[id number], 05/17/20, 168, cm, 04/18/20 10:07:00 EST, Height Start Date: 05/09/20 Status: Ordered Vitamin C By Mouth, Daily, [...] Hx of adenomatous colonic polyps(Confirmed) 18 Active assisted current use of opi ate [...] week 19care ploan reviewed 20comm 2 21PHQ9;2. [place] 4, 22had surgery 2011 23sx pending 24had sx 25seeing ENT 26surgery 1991 27MRI 2006 28possible ITP 29monitor 30Tubular adenoma 2014 Social History Social History Type Response Smoking Status Former smoker; Tobac co use times per day: smoked < 1/2 PPD; Started at age: 18; Stopped at age: 65; entered on: 12/23/13 Sex
--- OUTSIDE RECORDS SUMMARY | 2022-12-09 11:29 | XMS_ITS | Continuity of Care Document ---
Author Name Unknown Organization [facility] Address [address] [place] [address]- Care Team Providers Care Mender Hand Name Role Phone Kilo Smith MD Primary Care Physician [phone] [place] [facility] - 09/06/21 [facility] [address] [place] [address]- Attending Physician: Ora RICHARD, Ashequpriya Admitting Physician: Ora RICHARD, Hunter Referring Physician: Kilo Smith MD Allergies, Adverse Reactions, Alerts Substance Reaction Severity Status Duloxetine 1 rash Active 1GI Immunizations Given and Recorded Vaccine Date Status Refusal Reason SARS-CoV-2 mRNA (luzjtay-[id number]-[id number]) vax 1 06/29/21 Given influenza virus vaccine, [...] Vaccine (oldterm) 14 03/11/06 Given 1Result Comment: [facility]-[id number] 2Result Comment: [facility]: [id number] 3Result Comment: [02/28/2017] HD [facility]: [id number] 4[facility] 5Admin Note: VIS 12/18/2010 6Admin Note: VIS given 01/02/10 7Admin Note: VIS 8Admin Note: VIS-GIVEN 9Admin Note: vis 03/03 10Result Comment: error 11Admin Note: hep A #1 12Admin Note: vis 01/01 13Admin Note: VIS 14Admin Note: vis-given Medications acetaminophen 325 mg oral [...] 0 Refills, Maintenance, 07/17/21 12:08:00 EST, Tablet, [facility] #[id number], Partial fill upon patient request if the [...] tablet, 3 Refills, Maintenance, 02/05/21 8:58:00 EDT, [facility] #[id number], 168, cm, 01/30/21 11:10:00 EDT, Height, 72.7, kg, 10/12/20 9:18:00 EDT, Dry Weight Start Date: 02/05/21 Status: Ordered baclofen 10 mg oral tablet 0.5, tablet, By Mouth, 3 times a day, # 45 tablet, Refills 0, Tot. Refills 0, 08/14/21 13:16:00 EDT, Route to Pharmacy Electronically, [facility] #[id number], 168, cm, 08/01/21 9:15:00 EST, Height, 72.7, kg, 10/12/20 9:18:00 EDT, Dry Weight Start Date: 08/14/21 Status: Ordered clopidogrel 75 mg oral tablet 75 mg, 1, tablet, By Mouth, Daily, Continue medication through 09/2021 unless otherwise instructed.,# 90 tablet, Refills 3, Tot. Refills 3, Maintenance, 12/28/20 9:56:00 EDT, Route to Pharmacy Electronically, [facility] #[id number], Partial fill... Start Date: 12/28/20 Status: Ordered Coreg 3.125 mg oral tablet 3.125 mg, 1, tablet, By Mouth, 2 times a day, # 60 tablet, Refills 11, Tot. Refills 11, Maintenance, 08/01/21 9:34:00 EST, Route to Pharmacy Electronically, [facility] #[id number], Partial fill upon patient request if the prescription is for a sc... Start Date: 08/01/21 Stop Date: 07/27/22 Status: Ordered docusate sodium 100 mg oral capsule 100 mg, 1, capsule, By Mouth, 2 times a day, # 60 capsule, Refills 6, Tot. Refills 6, Maintenance, 01/03/21 8:19:00 EDT, Route to Pharmacy Electronically, [facility] #[id number], Partial fill upon patient request if the prescription is for a sche... Start Date: 01/03/21 Status: Ordered ezetimibe 10 mg oral tablet 1 tablet = 10 mg, By Mouth, Daily, take with atorvastatin, # 30 tablet, 11 Refills, Maintenance, 12/03/20 16:45:00 EDT, Tablet, [facility] #[id number], Partial fill upon patient request if the prescription is for a schedule II opioid drug., 168,... Start Date: 12/03/20 Status: Ordered Farxiga 5 mg oral tablet 1 tablet = 5 mg, By Mouth, Daily, # 30 tablet, 6 Refills, Maintenance, 07/06/21 13:16:00 EST, Tablet, [facility] #[id number], Partial fill upon patient request if the [...] 11 Refills, Maintenance, 12/04/20 9:56:00 EDT, Powder, [facility] #[id number], Partial fill upon patient request if the prescription i... Start Date: 12/04/20 Status: Ordered isosorbide mononitrate 30 mg oral tablet, extended release 1 tablet, By Mouth, Daily in AM, # 30 tablet, 0 Refills, [facility] #[id number], 168, cm, 01/10/21 10:40:00 EDT, Height, 72.7, kg, 10/12/20 9:18:00 EDT, Dry Weight Start Date: 01/28/21 Status: Ordered lamotrigine 25 mg oral tablet 25 mg, 1, tablet, By Mouth, 2 times a day, # 180 tablet, Refills 1, Tot. Refills 1, Maintenance, 07/11/21 13:45:00 EST, Route to Pharmacy Electronically, [facility] #[id number], 168, cm, 07/06/21 13:13:00 EST, Height, 72.7, [...] 02/21/21 16:10:00 EDT, Route to Pharmacy Electronically, [facility] #[id number], Partial fill upon patient request if the prescription is for a schedule II opi... Start Date: 02/21/21 Status: Ordered nitroglycerin 0.3 mg sublingual tablet 1 tablet = 0.3 mg, Sublingual, Every 5 minutes, PRN as needed for chest pain, not to exceed 3 doses/15 min--if pain persists, seek medical attention, # 100 tablet, 0 Refills, Maintenance, 12/04/20 10:05:00 EDT, Tablet, [facility] #[id number], Par... Start Date: 12/04/20 Status: Ordered omeprazole 20 mg oral enteric coated capsule 1 capsule = 20 mg, By Mouth, Daily, before breakfast, # 90 capsule, 0 Refills, Maintenance, 07/11/21 9:03:00 EST, EC Capsule, [facility] #[id number], 168, cm, 07/06/21 13:13:00 EST, Height, 72.7, kg, 10/12/20 9:18:00 EDT, Dry Weight Start Date: 07/11/21 Stop Date: 10/09/21 Status: Ordered oxyCODONE 10 mg oral tablet 1 tablet = 10 mg, By Mouth, Every 4 hours, PRN as needed for pain, chronic back pain, # 168 tablet,0 Refills, Maintenance, 08/14/21 10:56:00 EDT, Tablet, [facility] #[id number], Partial fill upon patient request if the prescription is for a sche... Start Date: 08/14/21 Status: Ordered Vitamin C 500 mg oral [...] ef 35%/Echo Sept 2020 40-45%(Confirmed) 10/20/20 Active [facility] current use of opi ate analgesic(Confirmed) 19, 20, 21 Active Mass of left parotid gland c t angio 2020/neg BX 2020;ENT(Confirmed) 11/28/20 Active Nasal Polyps(Confirmed) 22, 23, 24, 25 Active Encounter for monitoring phillip g-term proton [...] week 19care ploan reviewed 20comm 2 21PHQ9;2. [place] 4, 22had surgery 2011 23sx pending 24had sx 25seeing ENT 26surgery 1991 27MRI 2006 28possible ITP 29monitor 30Tubular adenoma 2014 Social History Social History Type Response Smoking Status Former smoker; Tobac co use times per day: smoked < 1/2 PPD; Started at age: 18; Stopped at age: 65; entered on: 12/23/13 Sex
--- OUTSIDE RECORDS SUMMARY | 2022-12-09 11:29 | XMS_ITS | Continuity of Care Document ---
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 Name Role Phone Kilo Smith MD Primary Care Physician [place] [facility] [place] - 04/04/22 [facility] [address] [place] [address]- Encounter Diagnosis DM (diabetes mellitus), type 2 with peripheral vascular complications(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) - 03/17/22 Diabetes mellitus with renal manifestation(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) - 03/17/22 ASHD cath September 2020 abnormal ef 35% see report(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) - 03/17/22 Essential familial hyperlipidemia(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) - 03/17/22 H/O: CVA (rain stem,lacunes)(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) - 03/17/22 Benign Essential Hypertension(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) - 03/17/22 Dilated pancreatic duct needs ERCP/GI scheduling(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) - 03/17/22 Attending Physician: Kilo Smith MD Allergies, Adverse [...] inactivated 6 08/01/10 Gi radha SARS-CoV-2 mRNA ([id number]) vax 7 06/29/21 Given SARS-CoV-2 (COVID-19) mRNA [...] Vaccine (oldterm) 15 03/11/06 Given 1Result Comment: [facility]-[id number] 2Result Comment: [facility]: [id number] 3Result Comment: [02/28/2017] [facility]: [id number] 4[facility] 5Admin Note: VIS 12/18/2010 6Admin Note: VIS given 01/02/10 7Result Comment: [facility]-[id number] 8Admin Note: VIS 9Admin Note: VIS-GIVEN 10Admin [...] 0 Refills, Maintenance, 07/17/21 12:08:00 EST, Tablet, [facility] #[id number], Partial fill upon patient request if the [...] tablet, 1 Refills, Maintenance, 01/22/22 12:14:00 EDT, [facility] #[id number], 168, cm, 12/26/21 15:45:00 EDT, Height, 88.5, kg, 11/04/21 16:51:00 EDT, Dry Weight Start Date: 01/22/22 Status: Ordered baclofen 10 mg oral tablet 0.5, tablet, By Mouth, 3 times a day, # 45 tablet, Refills 0, Tot. Refills 0, 08/14/21 13:16:00 EDT, Route to Pharmacy Electronically, [facility] #[id number], 168, cm, 08/01/21 9:15:00 EST, Height, 72.7, kg, 10/12/20 9:18:00 EDT, Dry Weight Start Date: 08/14/21 Status: Ordered clopidogrel 75 mg oral tablet 75 mg, 1, tablet, By Mouth, Daily, Continue medication through 09/2021 unless otherwise instructed.,# 90 tablet, Refills 3, Tot. Refills 3, Maintenance, 12/28/20 9:56:00 EDT, Route to Pharmacy Electronically, [facility] #[id number], Partial fill... Start Date: 12/28/20 Status: Ordered Coreg 3.125 mg oral tablet 3.125 mg, 1, tablet, By Mouth, 2 times a day, # 60 tablet, Refills 11, Tot. Refills 11, Maintenance, 08/01/21 9:34:00 EST, Route to Pharmacy Electronically, [facility] #[id number], Partial fill upon patient request if the prescription is for a sc... Start Date: 08/01/21 Stop Date: 07/27/22 Status: Ordered docusate sodium 100 mg oral capsule 100 mg, 1, capsule, By Mouth, 2 times a day, # 60 capsule, Refills 6, Tot. Refills 6, Maintenance, 01/03/21 8:19:00 EDT, Route to Pharmacy Electronically, [facility] #[id number], Partial fill upon patient request if the prescription is for a sche... Start Date: 01/03/21 Status: Ordered ezetimibe 10 mg oral tablet 1 tablet = 10 mg, By Mouth, Daily, take with atorvastatin, # 30 tablet, 11 Refills, Maintenance, 11/15/21 14:23:00 EDT, Tablet, [facility] #[id number], Partial fill upon patient request if the prescription is for a schedule II opioid drug., 168,... Start Date: 11/15/21 Status: Ordered Farxiga 10 mg oral tablet 1 tablet = 10 mg, By Mouth, Daily, Increased strength, # 30 tablet, 0 Refills, Maintenance, 01/16/22 9:53:00 EDT, Tablet, [facility] #[id number], Increased strength, 168, cm, 12/26/21 15:45:00 EDT, [...] 11 Refills, Maintenance, 12/04/20 9:56:00 EDT, Powder, [facility] #[id number], Partial fill upon patient request if the prescription i... Start Date: 12/04/20 Status: Ordered isosorbide mononitrate 30 mg oral tablet, extended release 1 tablet, By Mouth, Daily in AM, # 30 tablet, 0 Refills, [facility] #[id number], 168, cm, 01/10/21 10:40:00 EDT, Height, 72.7, kg, 10/12/20 9:18:00 EDT, Dry Weight Start Date: 01/28/21 Status: Ordered lamotrigine 25 mg oral tablet 25 mg, 1, tablet, By Mouth, 2 times a day, # 180 tablet, Refills 1, Tot. Refills 1, Maintenance, 01/22/22 12:14:00 EDT, Route to Pharmacy Electronically, [facility] #[id number], 168, cm, 12/26/21 15:45:00 EDT, Height, 88.5, [...] tablet, Refills 3, Tot. Refills 3, Maintenance, 10/16/22 22:37:00 EDT, Route to Pharmacy Electronically, [facility] #[id number], Partial fill upon patient request if the prescription is for a schedule II opi... Start Date: 03/10/22 Status: Ordered nitroglycerin 0.3 mg sublingual tablet 1 tablet = 0.3 mg, Sublingual, Every 5 minutes, PRN as needed for chest pain, not to exceed 3 doses/15 min--if pain persists, seek medical attention, # 100 tablet, 0 Refills, Maintenance, 12/04/20 10:05:00 EDT, Tablet, [facility] #[id number], Par... Start Date: 12/04/20 Status: Ordered omeprazole 20 mg oral enteric coated capsule 1 capsule = 20 mg, By Mouth, Daily, before breakfast, # 90 capsule, 0 Refills, Maintenance, 11/15/21 14:21:00 EDT, EC Capsule, [facility] #[id number], 168, cm, 11/15/21 12:59:00 EDT, Height, 88.5, kg, 11/04/21 16:51:00 EDT, Dry Weight Start Date: 11/15/21 Stop Date: 02/13/22 Status: Ordered oxyCODONE 10 mg oral tablet 1 tablet = 10 mg, By Mouth, Every 4 hours, PRN as needed for pain, chronic back pain, # 168 tablet,0 Refills, Maintenance, 03/26/22 11:02:00 EDT, Tablet, [facility] #[id number], Partial fill upon patient request if the prescription is for a sche... 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 [place] 4, 22had surgery 2011 23sx pending 24had sx 25seeing ENT 26surgery 1991 27MRI 2006 28possible ITP 29monitor 30Tubular adenoma 2014 Diagnosis Diagnosis Type Effective Dates Health Status Clinical Service Informant DM (diabetes mellitus), type 2 with peripheral vascular complications 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 03/17/22 Diabetes mellitus with renal manifestation 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 03/17/22 ASHD cath September 2020 abnormal ef 35% see report 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 03/17/22 Essential familial hyperlipidemia 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 03/17/22 H/O: CVA (rain stem,lacunes) 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 03/17/22 Benign Essential Hypertension 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 03/17/22 Dilated pancreatic duct needs ERCP/GI scheduling 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 03/17/22 Vital Signs Most recent to oldest [Reference Range]: 1 Height 168 cm (03/28/22 2:34 PM) Weight 74.7 kg (03/28/22 2:34 PM) Oxygen Saturation [94-100 %] 98 % (03/28/22 2:34 PM) Pulse Rate [55-90 bpm] 80 bpm (03/28/22 2:34 PM) Body Mass Index [18.5-24.99 kg/m2] 26.47 kg/m2 *H* (03/28/22 2:34 PM) Blood Pressure [90-138/55-84 mm Hg] 133/ 72mm Hg (03/28/22 2:34 PM) Respiratory Rate [16-30 br/min] 16 br/mi n (03/28/22 2:34 PM) Temperature [96.8-100.4 DegF] 97.8 DegF (03/28/22 2:34 PM) Mode of Delivery (Oxygen) Room air (03/28/22 2:34 PM) Blood pressure sites Arm, left (03/28/22 2:34 PM) Temperature Route Oral (03/28/22 2:34 PM) Weight Obtained Via Standing scale (03/28/22 2:34 PM) Social History Social History Type Response Smoking Status Former smoker; Tobac co use times per day: smoked < 1/2 PPD; Started at age: 18; Stopped at age: 65; entered on: 12/23/13 Sex Note * Ellen Mcneill: PERFORM, SIGN, VERIFY Event Display: Patient Education/Instruction Authored Date: [id number] [facility] *BMP So Anthony Dangelo Clinical Summary Name OSCAR MURRAY Age 76 Years 1945 PCP Luis RICHARD, Kilo Pendleton PCP [facility] [id number] Visit Date 03/28/2022 14:25:00 Patient Instructions see Leticia 2 months need SEE SPECIALIST: bile duct/liver issues we are scheduling see eye Doctor overdue SHINGLES VACCINE at pharmacy Covid vaccine ;latest Additional Instructions: Scheduled Appointments?? Future Appointments ?No Future Appointments Scheduled Follow-Up Instructions ?? With: Address: When: Kristin SIMS, Leticia L In 2 months Diagnosis Atherosclerotic heart disease of [place] coronary artery without angina pectoris; Other hyperlipidemia; Other specified diseases of pancreas; Type 2 diabetes mellitus with other diabetic kidney complication; Personal history of transient ischemic attack (TIA), and cerebral infarction without residual deficits; Type 2 diabetes mellitus without complications; Essential (primary) hypertension Medications: Please continue your medications until treatment is completed or stopped by your provider. Discuss any questions related to medications with your provider. Medications to Continue with No Changes These medications were not printed or sent to your pharmacy Albuterol (albuterol 90 mcg/inh inhalation powder) 2 puff(s) Inhalation every 4 hours as needed. Next Dose: Amlodipine (amLODIPine 5 mg oral tablet) 1 tab(s) Oral Daily. TAKE 1 TABLET BY MOUTH DAILY. Refills: 0. Next Dose: Ascorbic Acid (Vitamin C 500 mg oral tablet) 1 tab(s) Oral Daily. Next Dose: Aspirin (aspirin 81 mg oral enteric coated capsule) 1 capsule Oral Daily. Refills: 0. Next Dose: Atorvastatin (atorvastatin 80 mg oral tablet) 1 tab(s) Oral Daily. Refills: 1. Next Dose: Baclofen (baclofen 10 mg oral tablet) 0.5 tab(s) Oral 3 times a day. Refills: 0. Next Dose: Carvedilol (Coreg 3.125 mg oral tablet) 1 tab(s) Oral twice a day for 30 Days. Refills: 11. Next Dose: Cholecalciferol (Vitamin D3 2000 intl units oral capsule) 1 capsule Oral Daily. Next Dose: Clopidogrel (clopidogrel 75 mg oral tablet) 1 tab(s) Oral Daily. Continue medication through 09/2021unless otherwise instructed.. Refills: 3. Next Dose: dapagliflozin (Farxiga 10 mg oral tablet) 1 tab(s) Oral Daily. Increased strength. Refills: 0. Next Dose: Docusate (docusate sodium 100 mg oral capsule) 1 capsule Oral twice a day. Refills: 6. Next Dose: Durable Medical Equipment (Freestyle Lancets) use as directed for Type 2 Diabetes Mellitus to test blood sugar BID E11.9 PHILLIP-lifetime. Refills: 5. Next Dose: Durable Medical Equipment (Freestyle Lite Test Strips) use as directed for Type 2 Diabetes Mellitus to test blood sugar BID E11.9 PHILLIP-lifetime. Refills: 5. Next Dose: Durable Medical Equipment (Glucagon Emergency Kit) See Instructions as needed Blood Glucose. use asdirected for Type 1 Diabetes Mellitus. Next Dose: Ezetimibe (ezetimibe 10 mg oral tablet) 1 tab(s) Oral Daily. take with atorvastatin. Refills: 11. Next Dose: Isosorbide Mononitrate (isosorbide mononitrate 30 mg oral tablet, extended release) 1 tab(s) Oral Daily in the morning. Refills: 0. Next Dose: Lamotrigine (lamotrigine 25 mg oral tablet) 1 tab(s) Oral twice a day. Refills: 1. Next Dose: Lidocaine Topical (lidocaine 5% topical film) Topically Daily. Next Dose: Lisinopril (lisinopril 5 mg oral tablet) 1 tab(s) Oral Daily. Refills: 3. Next Dose: Nitroglycerin (nitroglycerin 0.3 mg sublingual tablet) 1 tab(s) Sublingual every 5 minutes as needed as needed for chest pain. not to exceed 3 doses/15 min--if pain persists, seek medical attention. Refills: 0. Next Dose: Omeprazole (omeprazole 20 mg oral enteric coated capsule) 1 capsule Oral Daily for 90 Days. before breakfast. Refills: 0. Next Dose: Oxycodone (oxyCODONE 10 mg oral tablet) 1 tab(s) Oral every 4 hours as needed as needed for pain. chronic back pain. Refills: 0. Next Dose: umeclidinium (Incruse Ellipta 62.5 mcg/inh inhalation powder) 1 Each Inhalation every 24 hours. doses should be taken at least 24 hours apart repaces spitriva. Refills: 11. Next Dose: Allergy Info:?? Duloxetine Medications Given This Visit Medication Dose Route influenza virus vaccine, inactivated (influenza virus, inactivated vacc (High Dose)) 0.7 mL Intramuscular Future Orders ?No future orders Vital Signs Height 168 cm Weight 74.7 kg BMI 26.47 kg/m2 Blood Pressure 133 mm Hg/72 mm Hg Temperature 97.8 DegF Pulse Rate 80 bpm Respiratory Rate 16 br/min 02 Sat Mode of Delivery 98 %/Room air You can now view a summary of your hospital visit from the comfort of your home through a free online portal called [employer]. [employer] is a website that allows you to securely view your medical information including discharge summary, medications and follow-up visits. ??You can alsosend a secure electronic message to your doctor???s office to request appointments, renew medications or just ask a question. You can enroll at [email or web address] or register during your next office visit. Disclaimer:?? The information provided is of a general nature and is intended to be used in conjunction with the recommendations and advice of your health care practitioner. ??Every effort has been made to ensure that the information provided is accurate and complete at the time it is provided to you however, as your needs change, or, as new ??information becomes available, different or additional instructions may be required. If you have questions, please consult with your primary care provider or pharmacist, as appropriate. ??This information is not intended to serve as substitution for assessment and evaluation by a qualified health care provider. If you do not have a primary care provider, you may find a [facility] provider by calling [facility] [employer] at [phone]. For information about the plan of care including goals and instructions for your diagnosis, please see the patient education orders section of this document. Patient Education Materials?? The content of this educational material or handout may have been modified, supplemented, or adapted from its original content and format to support your individualized medical care. Patient Care team information Care Team Personnel Name: Philomena Castillo Position: S RN Supv Member Role: Primary Care Nurse Name: Leticia Foster NP Position: [facility] Associate Professional Member Role: Lifetime Consulting Provider Address: Address: [address] [place] [address] [facility] Name: Namita Barajas RN Position: S RN Member Role: Primary Care Nurse Name: Tasha Back RN Position: S RN Member Role: Primary Care Nurse Name: Jenny Bustillos RN Position: S RN Member Role: Primary Care Nurse Name: Margarita Serrano RN Position: S RN Member Role: Primary Care Nurse Name: Kilo Smith MD Position: [facility] Primary Care Physician Member Role: PCP Address: Address: [address] [place] [address] - Name: Devin Benites RN Position: S RN Member Role: Primary Care Nurse Name: Betsy Millan RN Position: S RN Member Role: Primary Care Nurse Name: Peggy Jansen RN Position: S RN Member Role: Primary Care Nurse Name: Cate Pabon RN Position: [facility] PCO RN Member Role: Primary Care Nurse Name: Marian Rahman RN Position: S RN Member Role: Primary Care Nurse Name: Janette Jones RN Position: S RN Member Role: Primary Care Nurse Name: Vianney Mcneill RN Position: S RN Member Role: Primary Care Nurse Care Team Related Persons Name: INGE MURRAY Address: home [address], [place] Name: NIK BARTON Address: [place] [address]
--- OUTSIDE RECORDS SUMMARY | 2022-12-09 11:29 | XMS_ITS | Continuity of Care Document ---
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 Role Phone Luis RICHARD, Kilo Pendleton Primary Care Physician Encounter [facility] Date(s): 11/29/19 - 12/29/19 [facility] [address] [place] [address]- [facility] Attending Physician: Mitesh Lopez Admitting Physician: AdmMitesh [...] VIS 2Admin Note: VIS-GIVEN 3Result Comment: [02/28/2017] [facility]: [id number] 4[facility] 5Admin Note: VIS 12/18/2010 6Admin Note: VIS given 01/02/10 7Admin Note: vis 03/03 8Result Comment: error 9Admin Note: hep A #1 10Admin Note: vis 01/01 11Admin Note: VIS 12Admin Note: vis-given Medications amLODIPine 5 mg oral tablet 5 mg, 1, tablet, By Mouth, Daily, # 90 tablet, Refills 1, Tot. Refills 1, Maintenance, 09/08/19 15:55:00 EDT, Route to Pharmacy Electronically, [facility], 168, cm, 08/16/19 15:58:00 EDT, Height [...] 5 Refills, Maintenance, 10/06/19 15:53:00 EDT, Tablet, [facility], 168, cm, 08/16/19 15:58:00 EDT, Height Start Date: 10/06/19 Stop Date: 04/03/20 Status: Ordered Flonase 50 mcg/inh nasal spray 1 sprays, Nares, Both, 2 times a day, # 1 each, 3 Refills, Maintenance, 05/07/16 9:37:51, [place], 1 sprays Nares, Both 2 times a [...] 03/23/19 10:06:18 EDT, Route to Pharmacy Electronically, [id number], [facility] Start Date: 03/23/19 Status: Ordered lamotrigine 25 mg oral tablet 25 mg, 1, tablet, By Mouth, 2 times a day, # 60 tablet, Refills 5, Tot. Refills 5, Maintenance, 05/17/19 16:10:00 EST, Route to Pharmacy Electronically, [facility], 168, cm, 05/17/19 16:06:00 EST, Height Start Date: 05/17/19 Stop Date: 11/13/19 Status: Ordered lisinopril 20 mg oral tablet 40 mg, 2, tablet, By Mouth, Daily, new dose, # 180 tablet, Refills 1, Tot. Refills 1, Maintenance, 09/08/19 15:55:00 EDT, Route to Pharmacy Electronically, [facility], new dose, 168, cm, 08/16/19 15:58:00 EDT, Height Start Date: 06/13/17 Stop Date: 03/06/20 Status: Ordered loratadine 10 mg oral tablet 10 mg, 1, tablet, By Mouth, Daily, for seasonal allergies, # 30 tablet, Refills 2, Tot. Refills 2, Maintenance, 10/17/16 11:37:04, Route to Pharmacy Electronically, [id number], [facility] Start Date: 10/17/16 Status: Ordered metFORMIN 1000 mg oral tablet 1 tablet = 1,000 mg, By Mouth, 2 times a day, with meals, # 180 tablet, 1 Refills, Maintenance, 09/08/19 15:49:00 EDT, Tablet, [facility], 168, cm, 08/16/19 15:58:00 EDT, Height [...] see pharamcy note, 06/13/17 11:20:27, Narcan Nasal [place]: 4 mg (contents of 1 nasal spray): Narcan Nasal [place]: 4 mg (contents of 1 nasal spray), See Instructions, # 1... Start Date: 06/13/17 Status: Ordered nitroglycerin 0.4 mg sublingual tablet 1 tablet = 0.4 mg, Sublingual, Every 5 minutes, PRN for chest pain, # 25 tablet, 1 Refills, Maintenance, 01/06/18 6:52:02 EDT, Tablet, If chest pain not relieved within 5 minutes of taking the 1st dose, seek immediate medical attention Start Date: 8/14/18 Status: Ordered omeprazole 20 mg oral enteric coated capsule 1 capsule = 20 mg, By Mouth, Daily, before breakfast, # 90 capsule, 1 Refills, Maintenance, 09/08/19 15:55:00 EDT, EC Capsule, [facility], 168, cm, 08/16/19 15:58:00 EDT, Height [...] 0 Refills, Maintenance, 12/14/19 12:29:00 EDT, Tablet, [facility], 12/22/19, 168, cm, 12/06/19 13:53:00 EDT, Height [...] of adenomatous colonic polyps(Confirmed) 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 [place] 4, 22had surgery 2011 23sx pending 24had sx 25seeing ENT 26surgery 1991 27MRI 2006 28possible ITP 29monitor 30Tubular adenoma 2014 Social History Social History Type Response Smoking Status Former smoker; Tobac co use times per day: smoked < 1/2 PPD; Started at age: 18; Stopped at age: 65; entered on: 12/23/13 Sex
--- OUTSIDE RECORDS SUMMARY | 2022-12-09 11:29 | XMS_ITS | Continuity of Care Document ---
Author Name Unknown Organization [facility] Alessandro Cruz [place] lt Address [address] [place] [address]- Care Team Providers Care Television Writer Name Role Phone Kilo Smith MD Primary Care Physician Encounter [facility] [place] Date(s): 03/19/21 - 03/26/21 [facility] Alessandro Cruz Adult [address] [place] [address]- Encounter Diagnosis Benign Essential Hypertension(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) - 03/19/21 Adjustment disorder(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) - 03/19/21 Diabetes mellitus with renal manifestation(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) - 03/19/21 Attending Physician: Leticia Foster NP Referring Physician: Kilo Smith MD Allergies, Adverse [...] Vaccine (oldterm) 13 03/11/06 Given 1Result Comment: [facility]: [id number] 2Result Comment: [02/28/2017] [facility]: [id number] 3[facility] 4Admin Note: VIS 12/18/2010 [...] tablet, 3 Refills, Maintenance, 02/05/21 8:58:00 EDT, [facility] #[id number], 168, cm, 01/30/21 11:10:00 EDT, Height, 72.7, kg, 10/12/20 9:18:00 EDT, Dry Weight Start Date: 02/05/21 Status: Ordered baclofen 10 mg oral tablet 0.5, tablet, By Mouth, 3 times a day, # 45 tablet, Refills 0, Route to Pharmacy Electronically, [facility] #[id number], 168, cm, 03/19/21 15:01:00 EDT, Height, 72.7, kg, 10/12/20 9:18:00 EDT, Dry Weight Start Date: 03/26/21 Status: Ordered clopidogrel 75 mg oral tablet 75 mg, 1, tablet, By Mouth, Daily, Continue medication through 09/2021 unless otherwise instructed.,# 90 tablet, Refills 3, Tot. Refills 3, Maintenance, 12/28/20 9:56:00 EDT, Route to Pharmacy Electronically, [facility] #[id number], Partial fill... Start Date: 12/28/20 Status: Ordered docusate sodium 100 mg oral capsule 100 mg, 1, capsule, By Mouth, 2 times a day, # 60 capsule, Refills 6, Tot. Refills 6, Maintenance, 01/03/21 8:19:00 EDT, Route to Pharmacy Electronically, [facility] #[id number], Partial fill upon patient request if the prescription is for a sche... Start Date: 01/03/21 Status: Ordered ezetimibe 10 mg oral tablet 1 tablet = 10 mg, By Mouth, Daily, take with atorvastatin, # 30 tablet, 11 Refills, Maintenance, 12/03/20 16:45:00 EDT, Tablet, [facility] #[id number], Partial fill upon patient request if the [...] 11 Refills, Maintenance, 12/04/20 9:56:00 EDT, Powder, [facility] #[id number], Partial fill upon patient request if the prescription i... Start Date: 12/04/20 Status: Ordered isosorbide mononitrate 30 mg oral tablet, extended release 1 tablet, By Mouth, Daily in AM, # 30 tablet, 0 Refills, [facility] #[id number], 168, cm, 01/10/21 10:40:00 EDT, Height, 72.7, kg, 10/12/20 9:18:00 EDT, Dry Weight Start Date: 01/28/21 Status: Ordered lamotrigine 25 mg oral tablet 25 mg, 1, tablet, By Mouth, 2 times a day, # 180 tablet, Refills 1, Tot. Refills 1, Maintenance, 10/30/20 8:19:00 EDT, Route to Pharmacy Electronically, [facility] #[id number], 168, cm, :43:00 EDT, Height, 72.7, kg, [...] 02/21/21 16:10:00 EDT, Route to Pharmacy Electronically, [facility] #[id number], Partial fill upon patient request if the prescription is for a schedule II opi... Start Date: 02/21/21 Status: Ordered metFORMIN 1000 mg oral tablet 1 tablet = 1,000 mg, By Mouth, 2 times a day, with meals, # 180 tablet, 1 Refills, Maintenance, 12/27/20 13:44:00 EDT, Tablet, [facility] #[id number], 168, cm, 12/01/20 9:19:00 EDT, Height, 72.7, kg, 10/12/20 9:18:00 EDT, Dry Weight Start Date: 12/27/20 Stop Date: 06/25/21 Status: Ordered metoprolol 25 mg oral tablet, extended release 12.5 mg, 0.5, tablet, By Mouth, Daily, # 30 tablet, Refills 2, Tot. Refills 2, Maintenance, 01/10/21 11:01:00 EDT, Route to Pharmacy Electronically, [facility] #[id number], Partial fill upon patient request if the prescription is for a schedule I... Start Date: 01/10/21 Status: Ordered nitroglycerin 0.3 mg sublingual tablet 1 tablet = 0.3 mg, Sublingual, Every 5 minutes, PRN as needed for chest pain, not to exceed 3 doses/15 min--if pain persists, seek medical attention, # 100 tablet, 0 Refills, Maintenance, 12/04/20 10:05:00 EDT, Tablet, [facility] #[id number], Par... Start Date: 12/04/20 Status: Ordered omeprazole 20 mg oral enteric coated capsule 1 capsule = 20 mg, By Mouth, Daily, before breakfast, # 90 capsule, 0 Refills, Maintenance, 02/13/21 15:28:00 EDT, EC Capsule, [facility] #[id number], 168, cm, 02/05/21 14:18:00 EDT, Height, 72.7, kg, 10/12/20 9:18:00 EDT, Dry Weight Start Date: 02/13/21 Stop Date: 05/14/21 Status: Ordered oxyCODONE 10 mg oral tablet 1 tablet = 10 mg, By Mouth, Every 4 hours, PRN as needed for pain, chronic back pain, # 168 tablet,0 Refills, Maintenance, 03/05/21 11:41:00 EDT, Tablet, [facility] #[id number], Partial fill upon patient request if the [...] disorder(Confirmed) Active Adrenal adenoma left;inciden jericho 2020/normal rufian.plasma meranephr/normeta(Confirmed) 11/12/20 Active ASHD cath September 2020 [...] cath September 2020 ef 35%(Confirmed) 10/20/20 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 [place] 4, 22had surgery 2011 23sx pending 24had sx 25seeing ENT 26surgery 1991 27MRI 2006 28possible ITP 29monitor 30Tubular adenoma 2014 Diagnosis Diagnosis Type Effective Dates Health Status Clinical Service Informant Benign Essential Hypertension 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 03/19/21 Adjustment disorder 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 03/19/21 Diabetes mellitus with renal manifestation 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 03/19/21 Vital Signs Most recent to oldest [Reference Range]: 1 2 Height 168 cm (03/19/21 3:01 PM) 168 cm (03/19/21 2:23 PM) Weight 75.4 kg (03/19/21 2:23 PM) Oxygen Saturation [94-100 %] 96 % (03/19/21 2:23 PM) Pulse Rate [55-90 bpm] 84 bpm (03/19/21 3:01 PM) 98 bpm *H* (03/19/21 2:23 PM) Body Mass Index [18.5-24.99] 26.71 *H* (03/19/21 2:23 PM) Blood Pressure [90-138/55-84 mm Hg] 142/ 68mm Hg *H* (03/19/21 3:01 PM) 148/66mm Hg *H* (03/19/21 2:23 PM) Respiratory Rate [16-30 br/min] 18 br/mi n (03/19/21 2:23 PM) Temperature [96.8-100.4 DegF] 98.6 DegF (03/19/21 2:23 PM) Mode of Delivery (Oxygen) Room air (03/19/21 2:23 PM) Blood pressure sites Arm, left (03/19/21 3:01 PM) Arm, left (03/19/21 2:23 PM) Temperature Route Oral (03/19/21 2:23 PM) Weight Obtained Via Standing scale (03/19/21 2:23 PM) Social History Social History Type Response Smoking Status Former smoker; Tobac co use times per day: smoked < 1/2 PPD; Started at age: 18; Stopped at age: 65; entered on: 12/23/13 Sex
--- OUTSIDE RECORDS SUMMARY | 2022-12-09 11:29 | XMS_ITS | Continuity of Care Document ---
Author Name Unknown Organization [facility] [place] lt Address [address] [place] [address]- Care Team Providers Care Religious Education Director Name Role Phone Kilo Smith MD Primary Care Physician [place] [facility] [place]03[place]21 - 01/10/21 [facility] Adult [address] [place] [address]- Encounter Diagnosis Failed back syndrome sx 1991(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) - 12/27/20 prison current use of opiate analgesic(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) - 12/27/20 Syncope November 12-(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) - 12/27/20 CVA (cerebral vascular accident)(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) - 12/27/20 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(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) - 12/27/20 Adrenal adenoma left;incidental 2020/normal rufina.plasma meranephr/normeta (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) - 01/03/21 Attending Physician: Kilo Smith MD Allergies, Adverse [...] VIS 2Admin Note: VIS-GIVEN 3Result Comment: [02/28/2017] [facility]: [id number] 4[facility] 5Admin Note: VIS 12/18/2010 [...] tablet, 0 Refills, Maintenance, 01/10/21 17:48:00 EDT, [facility] #[id number], 168, cm, 01/10/21 10:40:00 EDT, Height, 72.7, kg, 10/12/20 9:18:00 EDT, Dry Weight Start Date: 01/10/21 Status: Ordered baclofen 5 mg oral tablet 1 tablet = 5 mg, By Mouth, 3 times a day, # 90 tablet, 2 Refills, Maintenance, 01/03/21 8:18:00 EDT, Tablet, [facility] #[id number], Partial fill upon patient request if the [...] 12/28/20 9:56:00 EDT, Route to Pharmacy Electronically, [facility] #[id number], Partial fill... Start Date: 12/28/20 Status: Ordered docusate sodium 100 mg oral capsule 100 mg, 1, capsule, By Mouth, 2 times a day, # 60 capsule, Refills 6, Tot. Refills 6, Maintenance, 01/03/21 8:19:00 EDT, Route to Pharmacy Electronically, [facility] #[id number], Partial fill upon patient request if the prescription is for a sche... Start Date: 01/03/21 Status: Ordered ezetimibe 10 mg oral tablet 1 tablet = 10 mg, By Mouth, Daily, take with atorvastatin, # 30 tablet, 11 Refills, Maintenance, 12/03/20 16:45:00 EDT, Tablet, [facility] #[id number], Partial fill upon patient request if the [...] Maintenance, DX: STROKE I63.9 LIFETIME NEED fax: [phone], 12/05/20 16:06:00 EDT, Supply Start Date: 12/05/20 Status: Ordered Incruse Ellipta 62.5 mcg/inh inhalation powder 1 each, Inhalation, Every 24 hours, doses should be taken at least 24 hours apart repaces spitriva,# 30 each, 11 Refills, Maintenance, 12/04/20 9:56:00 EDT, Powder, [facility] #[id number], Partial fill upon patient request if the [...] 10/30/20 8:19:00 EDT, Route to Pharmacy Electronically, [facility] #[id number], 168, cm, 216:43:00 EDT, Height, 72.7, kg, [...] 1 Refills, Maintenance, 12/27/20 13:44:00 EDT, Tablet, [facility] #[id number], 168, cm, 12/01/20 9:19:00 EDT, Height, 72.7, kg, 10/12/20 9:18:00 EDT, Dry Weight Start Date: 12/27/20 Stop Date: 06/25/21 Status: Ordered metoprolol 25 mg oral tablet, extended release 12.5 mg, 0.5, tablet, By Mouth, Daily, # 30 tablet, Refills 2, Tot. Refills 2, Maintenance, 01/10/21 11:01:00 EDT, Route to Pharmacy Electronically, [facility] #[id number], Partial fill upon patient request if the prescription is for a schedule I... Start Date: 01/10/21 Status: Ordered nitroglycerin 0.3 mg sublingual tablet 1 tablet = 0.3 mg, Sublingual, Every 5 minutes, PRN as needed for chest pain, not to exceed 3 doses/15 min--if pain persists, seek medical attention, # 100 tablet, 0 Refills, Maintenance, 12/04/20 10:05:00 EDT, Tablet, [facility] #[id number], Par... Start Date: 12/04/20 Status: Ordered omeprazole 20 mg oral enteric coated capsule 1 capsule = 20 mg, By Mouth, Daily, before breakfast, # 90 capsule, 1 Refills, Maintenance, 08/17/20 15:28:00 EDT, EC Capsule, [facility] #[id number], 168, cm, 07/17/20 14:04:00 EST, Height Start Date: 08/17/20 Stop Date: 02/13/21 Status: Ordered oxyCODONE 10 mg oral tablet 1 tablet = 10 mg, By Mouth, Every 4 hours, PRN as needed for pain, chronic back pain, # 168 tablet,0 Refills, Maintenance, 12/26/20 11:00:00 EDT, Tablet, [facility] #[id number], Partial fill upon patient request if the prescription is for a sche... Start Date: 12/26/20 Status: Ordered oxyCODONE 10 mg oral tablet [...] 01/03/21 8:20:00 EDT, Route to Pharmacy Electronically, [facility] #[id number], Partial fill upon patient request if the prescription is for a schedule II opi... Start Date: 01/03/21 Status: Ordered Tub transfer bench Tub transfer bench, See Instructions, # 1 each, Refills 0, Tot. 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 There is akinesis of the mid-distal anteroseptal wall, mid-distal inferoseptal wall, mid-distal inferior wall and apex. The left ventricular wall thickness is mildly increased. Normal right ventricular size and function. No significant valvular disease. The pulmonary artery systolic pressure estimation is within normal limits. Vital Signs Most recent to oldest [Reference Range]: 1 Height 168 cm (01/03/21 7:53 AM) Weight 73.1 kg (01/03/21 7:53 AM) Oxygen Saturation [94-100 %] 98 % (01/03/21 7:53 AM) Pulse Rate [55-90 bpm] 84 bpm (01/03/21 7:53 AM) Body Mass Index [18.5-24.99] 25.9 *H* (01/03/21 7:53 AM) Blood Pressure [90-138/55-84 mm Hg] 128/ 72mm Hg (01/03/21 7:53 AM) Blood pressure sites Arm, left (01/03/21 7:53 AM) Social History Social History Type Response Smoking Status Former smoker; Tobac co use times per day: smoked < 1/2 PPD; Started at age: 18; Stopped at age: 65; entered on: 12/23/13 Sex
--- OUTSIDE RECORDS SUMMARY | 2022-12-09 11:29 | XMS_ITS | Continuity of Care Document ---
Author Name Unknown Organization [facility] [place] lt Address [address] [place] [address]- Care Team Providers Care Flask Cleaner Name Role Phone Luis RICHARD, Kilo Pendleton Primary Care Physician [phone] Encounter [facility] [place] Date(s): 12/27/20 - 01/26/21 [facility] Adult [address] [place] [address]- Allergies, Adverse Reactions, Alerts Substance Reaction Severity [...] 2Admin Note: VIS-GIVEN 3Result Comment: [02/28/2017] [facility]: [id number] 4[facility] 5Admin Note: VIS 12/18/2010 [...] tablet, 0 Refills, Maintenance, 01/10/21 17:48:00 EDT, [facility] #[id number], 168, cm, 01/10/21 10:40:00 EDT, Height, 72.7, kg, 10/12/20 9:18:00 EDT, Dry Weight Start Date: 01/10/21 Status: Ordered baclofen 5 mg oral tablet 1 tablet = 5 mg, By Mouth, 3 times a day, # 90 tablet, 2 Refills, Maintenance, 01/03/21 8:18:00 EDT, Tablet, [facility] #[id number], Partial fill upon patient request if the [...] 12/28/20 9:56:00 EDT, Route to Pharmacy Electronically, [facility] #[id number], Partial fill... Start Date: 12/28/20 Status: Ordered docusate sodium 100 mg oral capsule 100 mg, 1, capsule, By Mouth, 2 times a day, # 60 capsule, Refills 6, Tot. Refills 6, Maintenance, 01/03/21 8:19:00 EDT, Route to Pharmacy Electronically, [facility] #[id number], Partial fill upon patient request if the prescription is for a sche... Start Date: 01/03/21 Status: Ordered ezetimibe 10 mg oral tablet 1 tablet = 10 mg, By Mouth, Daily, take with atorvastatin, # 30 tablet, 11 Refills, Maintenance, 12/03/20 16:45:00 EDT, Tablet, [facility] #[id number], Partial fill upon patient request if the [...] Maintenance, DX: STROKE I63.9 LIFETIME NEED fax: [phone], 12/05/20 16:06:00 EDT, Supply Start Date: 12/05/20 Status: Ordered Incruse Ellipta 62.5 mcg/inh inhalation powder 1 each, Inhalation, Every 24 hours, doses should be taken at least 24 hours apart repaces spitriva,# 30 each, 11 Refills, Maintenance, 12/04/20 9:56:00 EDT, Powder, [facility] #[id number], Partial fill upon patient request if the [...] 10/30/20 8:19:00 EDT, Route to Pharmacy Electronically, [facility] #[id number], 168, cm, :43:00 EDT, Height, 72.7, kg, [...] 1 Refills, Maintenance, 12/27/20 13:44:00 EDT, Tablet, [facility] #[id number], 168, cm, 12/01/20 9:19:00 EDT, Height, 72.7, kg, 10/12/20 9:18:00 EDT, Dry Weight Start Date: 12/27/20 Stop Date: 06/25/21 Status: Ordered metoprolol 25 mg oral tablet, extended release 12.5 mg, 0.5, tablet, By Mouth, Daily, # 30 tablet, Refills 2, Tot. Refills 2, Maintenance, 01/10/21 11:01:00 EDT, Route to Pharmacy Electronically, [facility] #[id number], Partial fill upon patient request if the prescription is for a schedule I... Start Date: 01/10/21 Status: Ordered nitroglycerin 0.3 mg sublingual tablet 1 tablet = 0.3 mg, Sublingual, Every 5 minutes, PRN as needed for chest pain, not to exceed 3 doses/15 min--if pain persists, seek medical attention, # 100 tablet, 0 Refills, Maintenance, 12/04/20 10:05:00 EDT, Tablet, [facility] #[id number], Par... Start Date: 12/04/20 Status: Ordered omeprazole 20 mg oral enteric coated capsule 1 capsule = 20 mg, By Mouth, Daily, before breakfast, # 90 capsule, 1 Refills, Maintenance, 08/17/20 15:28:00 EDT, EC Capsule, [facility] #[id number], 168, cm, 07/17/20 14:04:00 EST, Height Start Date: 08/17/20 Stop Date: 02/13/21 Status: Ordered oxyCODONE 10 mg oral tablet 1 tablet = 10 mg, By Mouth, Every 4 hours, PRN as needed for pain, chronic back pain, # 168 tablet,0 Refills, Maintenance, 12/26/20 11:00:00 EDT, Tablet, [facility] #[id number], Partial fill upon patient request if the [...] 01/03/21 8:20:00 EDT, Route to Pharmacy Electronically, [facility] #[id number], Partial fill upon patient request if the prescription is for a schedule II opi... Start Date: 01/03/21 Status: Ordered Tub transfer bench Tub transfer bench, See Instructions, # 1 each, Refills 0, Tot. 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 [place] 4, 22had surgery 2011 23sx pending 24had sx 25seeing ENT 26surgery 1991 27MRI 2006 28possible ITP 29monitor 30Tubular adenoma 2015 Social History Social History Type Response Smoking Status Former smoker; Tobac co use times per day: smoked < 1/2 PPD; Started at age: 18; Stopped at age: 65; entered on: 12/23/13 Sex
--- OUTSIDE RECORDS SUMMARY | 2022-12-09 11:29 | XMS_ITS | Continuity of Care Document ---
Author Name Unknown Organization [facility]z jennifer Address [address] [address]- Care Team Providers Care Director Money Name Role Phone Luis RICHARD, Kilo Pendleton Primary Care Physician [phone] Encounter [facility] Date(s): 02/09/21 - 03/11/21 [facility] [address] [address]- Attending Physician: Mitesh Lopez Admitting Physician: Mitesh Lopez Referring Physician: AdmtrMitesh Allergies, Adverse Reactions, Alerts [...] 2Admin Note: VIS-GIVEN 3Result Comment: [02/28/2017] [facility]: [id number] 4[facility] 5Admin Note: VIS 12/18/2010 [...] tablet, 3 Refills, Maintenance, 02/05/21 8:58:00 EDT, [facility] #[id number], 168, cm, 01/30/21 11:10:00 EDT, Height, 72.7, [...] 2 Refills, Maintenance, 01/03/21 8:18:00 EDT, Tablet, [facility] #[id number], Partial fill upon patient request if the [...] 12/28/20 9:56:00 EDT, Route to Pharmacy Electronically, [facility] #[id number], Partial fill... Start Date: 12/28/20 Status: Ordered docusate sodium 100 mg oral capsule 100 mg, 1, capsule, By Mouth, 2 times a day, # 60 capsule, Refills 6, Tot. Refills 6, Maintenance, 01/03/21 8:19:00 EDT, Route to Pharmacy Electronically, [facility] #[id number], Partial fill upon patient request if the prescription is for a sche... Start Date: 01/03/21 Status: Ordered ezetimibe 10 mg oral tablet 1 tablet = 10 mg, By Mouth, Daily, take with atorvastatin, # 30 tablet, 11 Refills, Maintenance, 12/03/20 16:45:00 EDT, Tablet, [facility] #[id number], Partial fill upon patient request if the [...] Maintenance, DX: STROKE I63.9 LIFETIME NEED fax: [phone], 12/05/20 16:06:00 EDT, Supply Start Date: 12/05/20 Status: Ordered Incruse Ellipta 62.5 mcg/inh inhalation powder 1 each, Inhalation, Every 24 hours, doses should be taken at least 24 hours apart repaces spitriva,# 30 each, 11 Refills, Maintenance, 12/04/20 9:56:00 EDT, Powder, [facility] #[id number], Partial fill upon patient request if the prescription i... Start Date: 12/04/20 Status: Ordered isosorbide mononitrate 30 mg oral tablet, extended release 1 tablet, By Mouth, Daily in AM, # 30 tablet, 0 Refills, [facility] #[id number], 168, cm, 01/10/21 10:40:00 EDT, Height, 72.7, kg, 10/12/20 9:18:00 EDT, Dry Weight Start Date: 01/28/21 Status: Ordered isosorbide mononitrate 30 mg oral tablet, extended release 1 tablet, By Mouth, Daily in AM, # 30 tablet, 0 Refills, [facility] #[id number], 168, cm, 01/10/21 10:40:00 EDT, Height, 72.7, kg, 10/12/20 9:18:00 EDT, Dry Weight Start Date: 01/28/21 Status: Ordered lamotrigine 25 mg oral tablet 25 mg, 1, tablet, By Mouth, 2 times a day, # 180 tablet, Refills 1, Tot. Refills 1, Maintenance, 10/30/20 8:19:00 EDT, Route to Pharmacy Electronically, [facility] #[id number], 168, cm, 216:43:00 EDT, Height, 72.7, kg, [...] 02/21/21 16:10:00 EDT, Route to Pharmacy Electronically, [facility] #[id number], Partial fill upon patient request if the prescription is for a schedule II opi... Start Date: 02/21/21 Status: Ordered metFORMIN 1000 mg oral tablet 1 tablet = 1,000 mg, By Mouth, 2 times a day, with meals, # 180 tablet, 1 Refills, Maintenance, 12/27/20 13:44:00 EDT, Tablet, [facility] #[id number], 168, cm, 12/01/20 9:19:00 EDT, Height, 72.7, kg, 10/12/20 9:18:00 EDT, Dry Weight Start Date: 12/27/20 Stop Date: 06/25/21 Status: Ordered metoprolol 25 mg oral tablet, extended release 12.5 mg, 0.5, tablet, By Mouth, Daily, # 30 tablet, Refills 2, Tot. Refills 2, Maintenance, 01/10/21 11:01:00 EDT, Route to Pharmacy Electronically, [facility] #[id number], Partial fill upon patient request if the prescription is for a schedule I... Start Date: 01/10/21 Status: Ordered nitroglycerin 0.3 mg sublingual tablet 1 tablet = 0.3 mg, Sublingual, Every 5 minutes, PRN as needed for chest pain, not to exceed 3 doses/15 min--if pain persists, seek medical attention, # 100 tablet, 0 Refills, Maintenance, 12/04/20 10:05:00 EDT, Tablet, [facility] #[id number], Par... Start Date: 12/04/20 Status: Ordered omeprazole 20 mg oral enteric coated capsule 1 capsule = 20 mg, By Mouth, Daily, before breakfast, # 90 capsule, 0 Refills, Maintenance, 02/13/21 15:28:00 EDT, EC Capsule, [facility] #[id number], 168, cm, 02/05/21 14:18:00 EDT, Height, 72.7, kg, 10/12/20 9:18:00 EDT, Dry Weight Start Date: 02/13/21 Stop Date: 05/14/21 Status: Ordered oxyCODONE 10 mg oral tablet 1 tablet = 10 mg, By Mouth, Every 4 hours, PRN as needed for pain, chronic back pain, # 168 tablet,0 Refills, Maintenance, 03/05/21 11:41:00 EDT, Tablet, [facility] #[id number], Partial fill upon patient request if the prescription is for a sche... Start Date: 03/05/21 Status: Ordered oxyCODONE 10 mg oral tablet 1 tablet = 10 mg, By Mouth, Every 4 hours, PRN as needed for pain, 0 Refills, Maintenance, 11/12/2114:57:00 EDT, Tablet, Partial fill upon patient request if the prescription is for a schedule II opioid drug. Start Date: 11/12/20 Status: Ordered Tub transfer bench Tub transfer bench, See Instructions, # 1 each, Refills 0, Tot. 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 [place] 4, 22had surgery 2011 23sx pending 24had sx 25seeing ENT 26surgery 1991 27MRI 2006 28possible ITP 29monitor 30Tubular adenoma 2014 Social History Social History Type Response Smoking Status Former smoker; Tobac co use times per day: smoked < 1/2 PPD; Started at age: 18; Stopped at age: 65; entered on: 12/23/13 Sex
--- OUTSIDE RECORDS SUMMARY | 2022-12-09 11:29 | XMS_ITS | Continuity of Care Document ---
Author Name Unknown Organization [facility] ter Address [address] [place] [id number]- Care Team Providers Care Client Executive Name Role Phone Kristin LEVI, Leticia Hope Primary Care Physician Encounter [facility] Date(s): 04/07/22 - 04/08/[address] [address]- Encounter Diagnosis Chest pain(Final) - 04/05/22 Discharge Disposition: A-D/C Home Attending Physician: Robert Melo MD Admitting Physician: Jose Braxton MD Referring Physician: Not on Staff, Referring [...] inactivated 6 08/01/10 Gi radha SARS-CoV-2 mRNA ([id number]) vax 7 06/29/21 Given SARS-CoV-2 (COVID-19) mRNA [...] Vaccine (oldterm) 15 03/11/06 Given 1Result Comment: [facility]-[id number] 2Result Comment: [facility]: [id number] 3Result Comment: [02/28/2017] HD [facility]: [id number] [facility] 5Admin Note: VIS 12/18/2010 6Admin Note: VIS given 01/02/10 7Result Comment: [facility]-[id number] 8Admin Note: VIS 9Admin Note: VIS-GIVEN 10Admin [...] oral tablet 5 mg, Tablet, By Mouth, 04/08/22 9:00:00 EST Start Date: 04/08/22 Stop Date: 04/08/22 Status: Completed amLODIPine 5 mg oral tablet 1 tablet = 5 mg, By Mouth, Daily, TAKE 1 TABLET BY MOUTH DAILY, # 90 tablet, 0 Refills, Maintenance, 07/17/21 12:08:00 EST, Tablet, [facility] #[id number], Partial fill upon patient request if the [...] tablet, 1 Refills, Maintenance, 01/22/22 12:14:00 EDT, [facility] #[id number], 168, cm, 12/26/21 15:45:00 EDT, Height, 88.5, kg, 11/04/21 16:51:00 EDT, Dry Weight Start Date: 01/22/22 Status: Ordered baclofen 10 mg oral tablet 0.5, tablet, By Mouth, 3 times a day, # 45 tablet, Refills 0, Tot. Refills 0, 08/14/21 13:16:00 EDT, Route to Pharmacy Electronically, [facility] #[id number], 168, cm, 08/01/21 9:15:00 EST, Height, 72.7, kg, 10/12/20 9:18:00 EDT, Dry Weight Start Date: 08/14/21 Status: Ordered clopidogrel 75 mg oral tablet 75 mg, 1, tablet, By Mouth, Daily, Continue medication through 09/2021 unless otherwise instructed.,# 90 tablet, Refills 3, Tot. Refills 3, Maintenance, 12/28/20 9:56:00 EDT, Route to Pharmacy Electronically, [facility] #[id number], Partial fill... Start Date: 12/28/20 Status: Ordered Coreg 3.125 mg oral tablet 3.125 mg, Tablet, By Mouth, 04/08/22 9:00:00 EST Start Date: 04/08/22 Stop Date: 04/08/22 Status: Completed Coreg 6.25 mg oral tablet 6.25 mg, 1, tablet, By Mouth, 2 times a day, # 60 tablet, Refills 0, Tot. Refills 0, Maintenance, 04/08/22 15:17:00 EST, Route to Pharmacy Electronically, [facility], Partial fill upon patient request if the prescription is for a schedul... Start Date: 04/08/22 Status: Ordered Farxiga 10 mg oral tablet 1 tablet = 10 mg, By Mouth, Daily, Increased strength, # 30 tablet, 0 Refills, Maintenance, 01/16/22 9:53:00 EDT, Tablet, [facility] #[id number], Increased strength, 168, cm, 12/26/21 15:45:00 EDT, [...] Daily in AM, # 30 tablet, Refills 0, Tot. Refills 0, Maintenance, 04/08/22 15:16:00 EST, Route to Pharmacy Electronically, [facility], Partial fill upon patient request if the prescription is for a schedule II... Start Date: 04/08/22 Status: Ordered lamotrigine 25 mg oral tablet 25 mg, 1, tablet, By Mouth, 2 times a day, # 180 tablet, Refills 1, Tot. Refills 1, Maintenance, 01/22/22 12:14:00 EDT, Route to Pharmacy Electronically, [facility] #[id number], 168, cm, 12/26/21 15:45:00 EDT, Height, 88.5, kg, 11/04/21 16:51:00... Start Date: 01/22/22 Status: Ordered lisinopril 5 mg oral tablet 5 mg, 1, tablet, By Mouth, Daily, # 90 tablet, Refills 3, Tot. Refills 3, Maintenance, 03/10/22 22:37:00 EDT, Route to Pharmacy Electronically, [facility] #[id number], Partial fill upon patient request if the prescription is for a schedule II opi... Start Date: 03/10/22 Status: Ordered lisinopril 5 mg oral tablet 5 mg, Tablet, By Mouth, 04/08/22 9:00:00 EST Start Date: 04/08/22 Stop Date: 04/08/22 Status: Completed nitroglycerin 0.3 mg sublingual tablet 1 tablet = 0.3 mg, Sublingual, Every 5 minutes, PRN as needed for chest pain, not to exceed 3 doses/15 min--if pain persists, seek medical attention, # 100 tablet, 0 Refills, Maintenance, 12/04/20 10:05:00 EDT, Tablet, [facility] #[id number], Par... Start Date: 12/04/20 Status: Ordered omeprazole 20 mg oral enteric coated capsule 1 capsule = 20 mg, By Mouth, Daily, before breakfast, # 90 capsule, 0 Refills, Maintenance, 11/15/21 14:21:00 EDT, EC Capsule, [facility] #[id number], 168, cm, 11/15/21 12:59:00 EDT, Height, 88.5, kg, 11/04/21 16:51:00 EDT, Dry Weight Start Date: 11/15/21 Stop Date: 02/13/22 Status: Ordered oxyCODONE 10 mg oral tablet 1 tablet = 10 mg, By Mouth, Every 4 hours, PRN as needed for pain, chronic back pain, # 168 tablet,0 Refills, Maintenance, 03/26/22 11:02:00 EDT, Tablet, [facility] #[id number], Partial fill upon patient request if the [...] Active Essential familial hyperlipidemia Confirmed Active GERD'egd 2017 12, 13 Confirmed 07/11/11 Active H/O lumbar discectomy 1991 14 Confirmed 1991 Active History of obstructive sleep apnea;ent sx 15, 16, 17 Confirmed Active H/O: CVA (rain stem,lacunes) Confirmed Active Hx of CABG x3 CABG x 3 (ALVAREZ-mid LAD, SVG-PDA, SVG-diag) Confirmed 10/29/20 Active Hx of adenomatous colonic polyps 18 Confirmed Active Inguinal hernia left Confirmed Active Ischemic cardiomyopathy cath September 2020 ef 35%/Echo Sept 2020 40-45% Confirmed 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/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 19, 20, 21 Confirmed Active 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/neg BX 2020;ENT Confirmed 11/28/20 Active Nasal Polyps 22, 23, 24, 25 Confirmed Active Dilated pancreatic duct needs ERCP/GI scheduling Confirmed 11/05/21 Active Encounter for monitoring long-term proton pump inhibitor therapy Confirmed Active Failed back syndrome sx 1991 Confirmed Active Spinal stenosis of lumbar region Confirmed Active Syncope November 12 2-021 Confirmed 11/12/20 Active 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 2018, Confirmed Active Tubular adenoma of colon 2014/ [...] week 19care ploan reviewed 20comm 2 21PHQ9;2. [place] 4, 22had surgery 2011 23sx pending 24had sx 25seeing ENT 26surgery 1991 27MRI 2006 28possible ITP 29monitor 30Tubular adenoma 2015 Procedures Procedure Date Related Diagnosis Body Site Status CTangio of abdomen 1 04/05/22 Comp leted 1No aortic dissection. Ectatic infrarenal aorta measuring up to 2.9 cm. Recommend follow-up ultrasound or CTA in 10 years per simplified ACR and SVS guidelines. Reference: Hitesh LOPEZ et al. J Vasc Surg 2018; 67:2-77. Society for Vascular Surgery 2018 practice guidelines on the care of patients with an abdominal aortic aneurysm. Diffuse bronchial wall thickening suggesting bronchitis. Small type I hiatal hernia and possible mild distal esophagitis. Duodenal mass and cystic pancreatic lesions seen on recent MRI are not visualized Results Radiology Reports * Exam Date Time Procedure Performing Provider Status 04/05/22 10:[address] Angio Abdomen and Pelvis Jared ron , Lauren; Auth (Verified) Notes: (CT Angio Abdomen and Pelvis) Reason For Exam: AAA, surveillance;Other: RESULT: CT Angio Abdomen and Pelvis EXAMINATION: CT Angio Chest, CT Angio Abdomen and Pelvis INDICATION: Hx of Present Illness: CP this AM took 3 nitro himself then when to eye doctor - when home to eat recurrent CP and LUQ and LLQ abd pain; Reason: Other:; Aortic disease, nontraumatic; Clinical Question(s): Other:; AAA; Order Comment: TECHNIQUE: Spiral CTA of the chest, abdomen, and pelvis was performed after rapid IV contrast administration without cardiac gating triggered by an RONDA on the aorta. Images are formatted in multiple planes using 2-D multiplanar and 3-D maximum intensity projection. 100 cc of Omnipaque 300 was administered intravenously. Weight-based protocol using automatic tube modulation was used to optimize exposure parameters. CTDIvol Body: 9.20 mGy, DLP Body: 907 mGy*cm. COMPARISONS: CT abdomen/pelvis dated 11/03/[address] dated 11/01/2020. Correlation is made with MRI abdomen dated 11/06/2021. ANGIOGRAPHIC FINDINGS: No aortic dissection or aneurysm. Normal three vessel arch without branch vessel stenosis. Pulmonary arteries are normal in caliber. No evidence of central pulmonary embolism on this study performed without dedicated technique. Abdominal aorta: Infrarenal abdominal aorta is ectatic measuring 2.8 x 2.9 cm. Celiac axis: Patent. Superior mesenteric artery: Patent. Right renal artery: Patent. Left renal artery: Patent. Inferior mesenteric artery: Patent. Right common iliac artery: Patent. Right internal iliac artery: Patent. Right external iliac artery: Patent. Right common femoral artery: Patent. Visualized right superficial and deep femoral arteries: Patent. Left common iliac artery: Patent. Left internal iliac artery: Patent. Left external iliac artery: Patent. Left common femoral artery: Patent. Visualized left superficial and deep femoral arteries: Patent. NON-ANGIOGRAPHIC FINDINGS: Closing Supervisor View Findings, Lines and Tubes: None. Trachea and Airways: Patent without evidence of tracheal or endobronchial lesion. Mild bronchial wall thickening throughout both lungs. Lungs and Pleura: Unchanged subcentimeter calcified granulomas. The lungs are otherwise clear. No effusion or pneumothorax. Mediastinum and kalpana: No mass or hematoma. No mediastinal or hilar lymphadenopathy. Small type I hiatal hernia. Mild circumferential wall thickening in the distal esophagus. Heart: Heart is normal in size. No pericardial effusion. Moderate coronary artery calcification. There is a stent in the LAD. Chest Wall Soft Tissues: Normal. Diaphragm: No significant abnormality. Liver: Normal. Gallbladder: No CT evidence of gallbladder pathology. Bile ducts: No biliary ductal dilation. Spleen: Normal. Pancreas: Cystic lesions seen on MRI are not clearly visualized. Adrenal glands: 1.1 cm left adrenal nodule was characterized as adenoma on MRI. The right adrenal gland is normal. Kidneys and ureters: No hydronephrosis, stones, or suspicious masses. Bladder: Normal. Reproductive organs: Markedly enlarged prostate gland measures 6.7 x 5.6 cm. Stomach, small bowel, and large bowel: Small type I hiatal hernia. There is a 6.4 cm duodenal diverticulum in the third portion. There is no abnormal bowel distention or wall thickening. There are a few scattered colonic diverticuli without evidence of acute diverticulitis. Duodenal mass seen on MRI is not identified. Appendix: Normal. Peritoneum and retroperitoneum: No ascites or pneumoperitoneum. No omental or mesenteric lesions. Lymph nodes: No enlarged lymph nodes. Abdominal and pelvic wall: Fat-containing bilateral small inguinal hernias.. Bones: No acute abnormality. IMPRESSION: No aortic dissection. Ectatic infrarenal aorta measuring up to 2.9 cm. Recommend follow-up ultrasound or CTA in 10 years per simplified ACR and SVS guidelines. Reference: Chaikof EL et al. J Vasc Surg 2018; 67:2-77. Society for Vascular Surgery 2018 practice guidelines on the care of patients with an abdominal aortic aneurysm. Diffuse bronchial wall thickening suggesting bronchitis. Small type I hiatal hernia and possible mild distal esophagitis. Duodenal mass and cystic pancreatic lesions seen on recent MRI are not visualized. WSN: [id number] Ordering Physician: Nadine Gomez Dictated By: Andre Camilo MD Dictated Date/Time: 04/05/22 11:22 p Reviewed By: Andre Camilo MD Signed By: Andre Camilo MD Signed Date/Time: 04/05/22 11:22 pm Transcribed By: LUCAS Transcribed Date/Time: 04/05/22 11:08 pm * Exam Date Time Procedure Performing Provider Status 04/05/22 10:[address] Angio Chest Lauren Johnson ; Auth (Verified) Notes: (CT Angio Chest) Reason For Exam: Aortic disease, nontraumatic;Other: RESULT: CT Angio Chest EXAMINATION: CT Angio Chest, CT Angio Abdomen and Pelvis INDICATION: Hx of Present Illness: CP this AM took 3 nitro himself then when to eye doctor - when home to eat recurrent CP and LUQ and LLQ abd pain; Reason: Other:; Aortic disease, nontraumatic; Clinical Question(s): Other:; AAA; Order Comment: TECHNIQUE: Spiral CTA of the chest, abdomen, and pelvis was performed after rapid IV contrast administration without cardiac gating triggered by an RONDA on the aorta. Images are formatted in multiple planes using 2-D multiplanar and 3-D maximum intensity projection. 100 cc of Omnipaque 300 was administered intravenously. Weight-based protocol using automatic tube modulation was used to optimize exposure parameters. CTDIvol Body: 9.20 mGy, DLP Body: 907 mGy*cm. COMPARISONS: CT abdomen/pelvis dated 11/03/[address] dated 11/01/2020. Correlation is made with MRI abdomen dated 11/06/2021. ANGIOGRAPHIC FINDINGS: No aortic dissection or aneurysm. Normal three vessel arch without branch vessel stenosis. Pulmonary arteries are normal in caliber. No evidence of central pulmonary embolism on this study performed without dedicated technique. Abdominal aorta: Infrarenal abdominal aorta is ectatic measuring 2.8 x 2.9 cm. Celiac axis: Patent. Superior mesenteric artery: Patent. Right renal artery: Patent. Left renal artery: Patent. Inferior mesenteric artery: Patent. Right common iliac artery: Patent. Right internal iliac artery: Patent. Right external iliac artery: Patent. Right common femoral artery: Patent. Visualized right superficial and deep femoral arteries: Patent. Left common iliac artery: Patent. Left internal iliac artery: Patent. Left external iliac artery: Patent. Left common femoral artery: Patent. Visualized left superficial and deep femoral arteries: Patent. NON-ANGIOGRAPHIC FINDINGS: Closing Supervisor View Findings, Lines and Tubes: None. Trachea and Airways: Patent without evidence of tracheal or endobronchial lesion. Mild bronchial wall thickening throughout both lungs. Lungs and Pleura: Unchanged subcentimeter calcified granulomas. The lungs are otherwise clear. No effusion or pneumothorax. Mediastinum and kalpana: No mass or hematoma. No mediastinal or hilar lymphadenopathy. Small type I hiatal hernia. Mild circumferential wall thickening in the distal esophagus. Heart: Heart is normal in size. No pericardial effusion. Moderate coronary artery calcification. There is a stent in the LAD. Chest Wall Soft Tissues: Normal. Diaphragm: No significant abnormality. Liver: Normal. Gallbladder: No CT evidence of gallbladder pathology. Bile ducts: No biliary ductal dilation. Spleen: Normal. Pancreas: Cystic lesions seen on MRI are not clearly visualized. Adrenal glands: 1.1 cm left adrenal nodule was characterized as adenoma on MRI. The right adrenal gland is normal. Kidneys and ureters: No hydronephrosis, stones, or suspicious masses. Bladder: Normal. Reproductive organs: Markedly enlarged prostate gland measures 6.7 x 5.6 cm. Stomach, small bowel, and large bowel: Small type I hiatal hernia. There is a 6.4 cm duodenal diverticulum in the third portion. There is no abnormal bowel distention or wall thickening. There are a few scattered colonic diverticuli without evidence of acute diverticulitis. Duodenal mass seen on MRI is not identified. Appendix: Normal. Peritoneum and retroperitoneum: No ascites or pneumoperitoneum. No omental or mesenteric lesions. Lymph nodes: No enlarged lymph nodes. Abdominal and pelvic wall: Fat-containing bilateral small inguinal hernias.. Bones: No acute abnormality. IMPRESSION: No aortic dissection. Ectatic infrarenal aorta measuring up to 2.9 cm. Recommend follow-up ultrasound or CTA in 10 years per simplified ACR and SVS guidelines. Reference: Chaikof EL et al. J Vasc Surg 2018; 67:2-77. Society for Vascular Surgery 2018 practice guidelines on the care of patients with an abdominal aortic aneurysm. Diffuse bronchial wall thickening suggesting bronchitis. Small type I hiatal hernia and possible mild distal esophagitis. Duodenal mass and cystic pancreatic lesions seen on recent MRI are not visualized. WSN: [id number] Ordering Physician: Nadine Gomez Dictated By: Andre Camilo MD Dictated Date/Time: 04/05/22 11:22 p Reviewed By: Andre Camilo MD Signed By: Andre Camilo MD Signed Date/Time: 04/05/22 11:22 pm Transcribed By: LUCAS Transcribed Date/Time: 04/05/22 11:08 pm Vital Signs Most recent to oldest [Reference Range]: 1 2 3 4 5 Height 168 cm (04/08/22 7:31 AM) 168 cm (04/08/22 3:07 AM) 168 cm (04/07/22 11:45 PM) Weight 74 kg (04/06/22 1:20 AM) Oxygen Saturation [94-100 %] 96 % (04/08/22 10:57 AM) 97 % (04/08/22 7:31 AM) 98 % (04/08/22 3:07 AM) Pulse Rate [55-90 bpm] 63 bpm (04/08/22 10:57 AM) 68 bpm (04/08/22 7:31 AM) 68 bpm (04/08/22 7:21 AM) Body Mass Index [18.5-24.99 kg/m2] 26.22 kg/m2 *H* (04/06/22 1:20 AM) Blood Pressure [90-138/55-84 mm Hg] 106/54mm Hg (04/08/22 10:57 AM) 130/69mm Hg (04/08/22 7:31 AM) 130/69mm Hg (04/08/22 7:21 AM) 130/69mm Hg (04/08/22 7:21 AM) 130/69mm Hg (04/08/22 7:21 AM) Respiratory Rate [16-30 br/min] 18 br/min (04/08/22 10:57 AM) 18 br/min (04/08/22 7:51 AM) 18 br/min (04/08/22 7:31 AM) Temperature [96.8-100.4 DegF] 97.7 DegF (04/08/22 10:57 AM) 97.8 DegF (04/08/22 7:31 AM) 98 DegF (04/08/22 3:07 AM) Mode of Delivery (Oxygen) Room air (04/08/22 10:57 AM) Room air (04/08/22 7:31 AM) Room air (04/08/22 3:07 AM) Blood pressure sites Arm, left (04/08/22 10:57 AM) Arm, left (04/08/22 7:31 AM) Arm, left (04/08/22 3:07 AM) Temperature Route Oral (04/08/22 10:57 AM) Oral (04/08/22 3:07 AM) Oral (04/07/22 11:45 PM) Dry Weight 74 kg (04/06/22 1:20 AM) Social History Social History Type Response Smoking Status Former smoker; Tobac co use times per day: smoked < 1/2 PPD; Started at age: 18; Stopped at age: 65; entered on: 12/23/13 Sex Admission evaluation note * Jose Braxton MD: PERFORM, MODIFY, MODIFY, MODIFY, MODIFY Event Display: Admission Note Authored Date: Patient: ??OSCAR MURRAY ? Age:??77 Years?Sex:??Male?:??1945?? History of Present Illness 77-year-old male with history of coronary artery disease status post CABG, hypertension, hyperlipidemia, type 2 diabetes mellitus, COPD, CKD, ISREAL on CPAP, BPH, history of spinal stenosis, chronic back pain presenting to the emergency department complaints of chest pain, back pain since 3 PM yesterday afternoon. ?? Patient reports that he developed chest pain at approximately 3 PM yesterday afternoon while he wasresting.?? Also reported having mid abdominal pain, burning in nature with radiation up to the chest and back.?? No association with exertion, no associated shortness of breath, no fever or chills, no nausea or vomiting, no headaches or changes in vision, no diarrhea, constipation or dysuria.?? He did report that the pain worsened after eating, he did take nitroglycerin at home with minimal improvement in the pain.?? EKG with no acute ischemic changes, troponin x1 is negative, given the nature of the pain CT angiogram of the chest and abdomen was done which did not reveal any evidence of PE, aortic dissection.?? He did reveal ectatic infrarenal aorta measuring up to 2.9 cm.?? Radiology recommending ultrasound or CTA in 10 years per simplified ACR in SVS guidelines.?? Diffuse bronchial wall thickening suggesting bronchitis, small type I hiatal hernia and possible mild distal esophagitis, duodenal mass and cystic pancreatic lesion seen on recent MRI or not visualized. ?? Patient received Maalox, IV famotidine IV morphine and ondansetron with significant improvement in his pain. Review of Systems All systems are reviewed??and are negative except as noted above in the HPI. Objective Vital Signs?? Temperature: 97.7 DegF (04/06/22 01:20:00) Temperature Route: Oral (04/06/22 01:20:00) Pulse Rate: 73 bpm (04/06/22 02:15:00) Respiratory Rate: 18 br/min (04/06/22 02:16:00) Systolic Blood Pressure:??176 mm Hg??High (04/06/22 02:15:00) Diastolic Blood Pressure:??88 mm Hg??High (04/06/22 02:15:00) Blood pressure sites: Arm, left (04/06/22 01:20:00) Mean Arterial Pressure: 117 mm Hg (04/06/22 01:20:00) Pulse Pressure: 88 mm Hg (04/06/22 01:20:00) Oxygen Saturation: 100 % (04/06/22 01:20:00) Mode of Delivery (Oxygen): Room air (04/06/22 01:20:00) Early Warning Score: 5 (04/06/22 02:17:24) ? Physical Exam General: Alert, oriented x3, no acute distress HEENT: Atraumatic, normocephalic, EOMI, PERRL Neck: Supple, trachea midline Respiratory: CTA B, no wheezes, crackles or rhonchi CVS: S1, S2.?? RRR, no MRG, no JVD Abdomen: Soft, nondistended, tender to palpation over the periumbilical region, no rebound tenderness, no rigidity or guarding, positive bowel sounds Musculoskeletal: No deformities, no cyanosis Psych: Appropriate mood and affect, cooperative Neuro: Alert and oriented x3, no facial asymmetry, moving all extremities spontaneously Assessment/Plan 77-year-old male with history of coronary artery disease status post CABG, hypertension, hyperlipidemia, type 2 diabetes mellitus, COPD, CKD, ISREAL on CPAP, BPH, history of spinal stenosis, chronic back pain presenting to the emergency department complaints of chest pain, back pain since 3 PM yesterday afternoon. ?? Chest pain, abdominal pain Rule out ACS History of CAD status post CABG ?? -Currently chest pain-free, EKG with no acute ischemic changes, troponin x1 is negative.?? Given the nature of his pain, CT angiogram of the chest and abdomen was done which was negative for any acute pathology.?? CT did not reveal any evidence of PE, aortic dissection.?? It did reveal ectatic infrarenal aorta measuring up to 2.9 cm which is unchanged compared to CT done in October 2020, per radiology recommend follow-up with ultrasound or CT in 10 years per simplified ACR and SVS guidelines. -Pain appears to be rather GI in nature, burning in nature with radiation up to the chest, also hassome tenderness to palpation in the periumbilical region.?? CT as noted above with no acute pathology noted. c/w PPI, Maalox -Admit the patient to telemetry unit, continue with cardiac monitoring to rule out life-threateningarrhythmias, continue trending troponin to completion to rule out ACS -Continue with aspirin, Plavix, atorvastatin, isosorbide mononitrate, Coreg.?? Nitroglycerin as needed for chest pain, EKG as needed for chest pain. ?? Hypertension CHF -Continue with home medications, no signs of volume overload, not on diuretics at home ?? GERD: Continue with PPI ?? Hyperlipidemia: Continue with atorvastatin, ezetimibe nonformulary ?? History of CVA: Continue with aspirin, statin, Plavix ?? Chronic back pain: Continue with oxycodone, lamotrigine, baclofen ?? DVT prophylaxis: Enoxaparin ?? CODE STATUS: Full code. Histories Allergies Allergies ?(Active and Proposed Allergies Only) Duloxetine? (Severity: Unknown severity, Onset: Unknown) ?Reactions: rash ?Comments: GI ? Past Medical History/Problem List Active Problems??(36) Acute colitis 10/2021 Adjustment disorder Adrenal adenoma left;incidental 2020/normal rufina.plasma meranephr/normeta ASHD cath September 2020 abnormal ef 35% see report Benign Essential Hypertension BPH (benign prostatic hypertrophy) Chronic Prostatitis 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% Coronary atherosclerosis due to calcified coronary lesion Diabetes mellitus with renal manifestation Dilated pancreatic duct needs ERCP/GI scheduling DM (diabetes mellitus), type 2 with peripheral vascular complications Elevated PSA Encounter for monitoring long-term proton pump inhibitor therapy Erectile dysfunction Essential familial hyperlipidemia Failed back syndrome sx 1992 GERD'egd 2017 H/O lumbar discectomy 1991 H/O: CVA ([place]) Hematuria History of obstructive sleep apnea;ent sx Hx of adenomatous colonic polyps Hx of CABG x3 CABG x 3 ??(ALVAREZ-mid LAD, SVG-PDA, SVG-diag) Inclusion cyst mucous rt tonsil Inguinal hernia left Ischemic cardiomyopathy cath September 2020 ef 35%/Echo Sept 2020 40-45% assisted current use of opiate analgesic 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/neg BX 2020;ENT Nasal Polyps Sigmoid diverticulosis Spinal stenosis of lumbar region Syncope November 12- 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 2018 Tubular adenoma of colon 2014/ declines another colo;2020 Vitamin D deficiency ? Past Surgical History MRI of abdomen dilated panc duct/ acending colon cloitus: 11/06/21 Chest X-ray SMALL LEFT EFFUSION: 11/04/21 CT of abdomen and pelvis inflam chngs rt colon/dilated pancreatic dyuct: 11/03/21 Echocardiogram ef 4-45%: 02/15/21 Fine needle aspiration biopsy of parotid gland;ne01/17/21 Holter monitor- Predominant rhythm is normal sinus rhythm. The average heart rate is 89 beats per minute with normal heart rate variability. The min HR 78/ max 108bpm. rare PACs and one couplet, there were no sustained supraventricular arrhythmias, ??rare: 01/04/21 EEG normal: 12/10/20 CT of brain nil,acute(sinus issues): 11/12/20 CT of thorax see report adenoma left: 11/12/20 CT of abdomen and pelvis: 11/12/20 MRI of brain and brain stem infarct rt bputamen. lacunes rt thalamus/cerebellum: 11/03/20 CT angiography of head and neck abnormal: 11/01/20 CABG x 3 - Coronary artery bypass grafts x 3 ??CABG x 3 ??(ALVAREZ-mid LAD, SVG- PDA, SVG-diag): 10/30/20 Echocardiogram ef 35-40%: 10/22/20 Cardiac catheterization ef 35% lad stent occludec RCA 99%: 10/20/20 Electrocardiogram sinus 78 t inversion V1-v4 and inf qs: 10/19/20 Electrocardiogram anterioor t inversion new: 10/13/20 SYLVIA rt 1.13 left 0.85: 11/29/19 Esophagogastroduodenoscopy gastritis duiodenitis: 08/27/17 MRI of lumbar spine: 04/21/17 Urine cytology: 08/05/16 Chest X-ray: 02/07/16 Computed tomography, thorax; without contrast material: 01/24/16 Electrocardiogram, routine ECG with at least 12 leads; with interpretation and report: 09/28/15 Chest X-ray: 09/28/15 Biopsy of prostate ne09/26/15 X-ray of right ankle: 03/18/15 Colonoscopy: 03/09/15 Computed tomography, thorax; without contrast material: 12/02/14 Pulmonary function test: 12/30/13 Computed tomography, thorax; without contrast material: 12/28/13 Radiologic examination, chest, 2 views, frontal and lateral;: 12/14/13 Colonoscopy, flexible, proximal to splenic flexure; diagnostic, with or without collection of specimen(s) by brushing or washing, with or without colon decompression (separate procedure): 11/18/13 Radiologic examination, chest, 2 views, frontal and lateral;: 11/18/13 Radiologic examination, chest, 2 views, frontal and lateral;: 11/18/13 Cardiac Tc-99m MIBI study: 07/13/13 Cardiovascular stress test using maximal or submaximal treadmill or bicycle exercise, continuous electrocardiographic monitoring, and/or pharmacological stress; interpretation and report only: 07/13/13 Electrocardiogram, routine ECG with at least 12 leads; with interpretation and report: 07/03/13 Colonoscopy, flexible, proximal to splenic flexure; diagnostic, with or without collection of specimen(s) by brushing or washing, with or without colon decompression (separate procedure): 01/07/13 Computed tomography, abdomen and pelvis; with contrast material(s): 10/15/12 Electrocardiogram, routine ECG with at least 12 leads; with interpretation and report: 10/13/12 Electrocardiogram, routine ECG with at least 12 leads; with interpretation and report: 01/28/12 right hip,femur,knee: 11/12/11 Polysomnogram: 08/26/11 Colonoscopy, flexible, proximal to splenic flexure; diagnostic, with or without collection of specimen(s) by brushing or washing, with or without colon decompression (separate procedure): 08/19/11 Pulmonary function test: 08/13/11 Magnetic resonance (eg, proton) imaging, spinal canal and contents, lumbar; without contrast material: 08/12/11 Radiologic examination, chest, 2 views, frontal and lateral;: 07/16/11 Computed tomography, abdomen; without contrast material: 07/16/11 Electrocardiogram, routine ECG with at least 12 leads; with interpretation and report: 07/04/11 Radiologic examination, chest, 2 views, frontal and lateral;: 07/04/11 Cardiac Tc-99m MIBI study: 09/17/10 Magnetic resonance (eg, proton) imaging, spinal canal and contents, lumbar; without contrast material: 04/23/07 Magnetic resonance (eg, proton) imaging, brain (including brain stem); without contrast material: 07/20/06 angioplasty with stents: 09/23/04 ? Social History Alcohol Details:??Use: Never. Employment/School Details:??Status: Retired. Exercise Details:??Self assessment: Fair condition. ??Regular exercise: No. Home/Environment Details:??Living situation: Home/Independent. ??Lives with: Significant other. ??Feels unsafe at home: No. Nutrition/Health Details:??Diet: Regular. ??Other: No pork or pork products. Other Details:??Name: no driving issues. Sexual Details:??Gender identity: Identifies as male. ??Preferred pronoun: He/him. Substance Abuse Details:??Use: Never. Tobacco Details:??Use: Former smoker. ??Tobacco use times per day: smoked < 1/2 PPD. ??Started at age: 18 Years. ??Stopped at age: 65 Years. Electronic Cigarette/Vaping Details:??Electronic Cigarette Use: Never. ? Family History Mother (): Asthma Father (): Asthma Brother: Diabetes mellitus type II Brother: Diabetes mellitus type II Brother: ASHD - Atherosclerotic heart disease Brother: ASHD - Atherosclerotic heart disease Sister: Diabetes mellitus type II ? Medications Home Medications Albuterol (albuterol 90 mcg/inh inhalation powder)?2?puff(s)?Inhalation?Every 4 hours?as needed?as needed Amlodipine (amLODIPine 5 mg oral tablet)?1?tab(s)?5?Milligram?By Mouth?Daily?TAKE 1 TABLET BY MOUTH DAILY Ascorbic Acid (Vitamin C 500 mg oral tablet)?1?tab(s)?500?Milligram?By Mouth?Daily Aspirin (aspirin 81 mg oral enteric coated capsule)?1?capsule?81?Milligram?By Mouth?Daily Atorvastatin (atorvastatin 80 mg oral tablet)?1?tab(s)?By Mouth?Daily Baclofen (baclofen 10 mg oral tablet)?0.5?tablet?By Mouth?3 times a day Carvedilol (Coreg 3.125 mg oral tablet)?3.125?Milligram?1?tablet?By Mouth?2 timesa day?for 30?Days Cholecalciferol (Vitamin D3 2000 intl units oral capsule)?1?capsule?2,000?InternationalUnit?By Mouth?Daily Clopidogrel (clopidogrel 75 mg oral tablet)?75?Milligram?1?tablet?By Mouth?Daily?Continue medication through 09/2021 unless otherwise instructed. dapagliflozin (Farxiga 10 mg oral tablet)?1?tab(s)?10?Milligram?By Mouth?Daily?Increased strength Docusate (docusate sodium 100 mg oral capsule)?100?Milligram?1?capsule?By Mouth?2times a day Durable Medical Equipment (Glucagon Emergency Kit)?See Instructions?as needed?Blood Glucose?use as directed for Type 1 Diabetes Mellitus Durable Medical Equipment (Freestyle Lancets)?See Instructions?for 30?Days?use as directed for Type 2 Diabetes Mellitusto test blood sugar BIDE11.9LON-lifetime Durable Medical Equipment (Freestyle Lite Test Strips)?See Instructions?for 30?Days?useas directed for Type 2 Diabetes Mellitusto test blood sugar BIDE11.9LON-lifetime Ezetimibe (ezetimibe 10 mg oral tablet)?1?tab(s)?10?Milligram?By Mouth?Daily?take with atorvastatin Isosorbide Mononitrate (isosorbide mononitrate 30 mg oral tablet, extended release)?1?tab(s)?By Mouth?Daily in AM Lamotrigine (lamotrigine 25 mg oral tablet)?25?Milligram?1?tablet?By Mouth?2 times a day Lidocaine Topical (lidocaine 5% topical film)?Topically?Daily Lisinopril (lisinopril 5 mg oral tablet)?5?Milligram?1?tablet?By Mouth?Daily Nitroglycerin (nitroglycerin 0.3 mg sublingual tablet)?1?tab(s)?0.3?Milligram?Sublingual?Every 5 minutes?as needed?as needed for chest pain?not to exceed 3 doses/15 min--ifpain persists, seek medical attention Omeprazole (omeprazole 20 mg oral enteric coated capsule)?1?capsule?20?Milligram?By Mouth?Daily?for 90?Days?before breakfast Oxycodone (oxyCODONE 10 mg oral tablet)?1?tab(s)?10?Milligram?By Mouth?Every 4 hours?as needed?as needed for pain?chronic back pain umeclidinium (Incruse Ellipta 62.5 mcg/inh inhalation powder)?1?Each?Inhalation?Every 24 hours?doses should be taken at least 24 hours apartrepaces spitriva ? Results Recent Labs BLOOD COUNT & DIFF WBC 8.7 k/mm3 ()?? 04/05/2022 20:53 RBC 5.19 m/mm3 ()?? 04/05/2022 20:53 Hgb 15.3 Gm/dL ()?? 04/05/2022 20:53 Hct 46.7 % ()?? 04/05/2022 20:53 MCV 90.0 femtoliters ()?? 04/05/2022 20:53 MCH 29.5 pg ()?? 04/05/2022 20:53 MCHC 32.8 g/dL (Low)?? 04/05/2022 20:53 Platelet Count 134 k/mm3 (Low)?? 04/05/2022 20:53 RDW-SD 46.9 femtoliters ()?? 04/05/2022 20:53 MPV 11.8 femtoliters ()?? 04/05/2022 20:53 Nucleated RBC (Automated) 0.0 #/100 WBC'S ()?? 04/05/2022 20:53 Abs. NRBC 0.0 k/mm3 ()?? 04/05/2022 20:53 Abs. Neut 5.6 k/mm3 ()?? 04/05/2022 20:53 Abs. Lymph 1.9 k/mm3 ()?? 04/05/2022 20:53 Abs. [place] 0.9 k/mm3 ()?? 04/05/2022 20:53 Abs. Eo 0.3 k/mm3 ()?? 04/05/2022 20:53 Abs. Baso 0.1 k/mm3 ()?? 04/05/2022 20:53 Neut % 64.3 % ()?? 04/05/2022 20:53 Lymph % 21.8 % ()?? 04/05/2022 20:53 [place] % 10.2 % ()?? 04/05/2022 20:53 Eos % 3.0 % ()?? 04/05/2022 20:53 Baso % 0.6 % ()?? 04/05/2022 20:53 Imm Gran 0.1 % ()?? 04/05/2022 20:53 Abs. Imm Gran 0.0 k/mm3 ()?? 04/05/2022 20:53 ?? CARDIAC Troponin T Quant <0.01 ng/mL ()?? 04/05/2022 20:53 Nt-Probnp 388 pg/mL ()?? 04/05/2022 20:53 ?? CHEM GENERAL Sodium 140 mmol/L ()?? 04/05/2022 20:53 Potassium 4.1 mmol/L ()?? 04/05/2022 20:53 Chloride 102 mmol/L ()?? 04/05/2022 20:53 Bicarbonate Level 27 mmol/L ()?? 04/05/2022 20:53 Anion Gap 11 ()?? 04/05/2022 20:53 Glucose Level 225 mg/dL (High)?? 04/05/2022 20:53 BUN 17 mg/dL ()?? 04/05/2022 20:53 Creatinine-Blood 1.2 mg/dL ()?? 04/05/2022 20:53 Estimated GFR Creatinine 65 ML/MIN/1.73 M2 ()?? 04/05/2022 20:53 Calcium 9.4 mg/dL ()?? 04/05/2022 20:53 Protein, Total 6.8 Gm/dL ()?? 04/05/2022 20:53 Albumin 4.3 Gm/dL ()?? 04/05/2022 20:53 AG Ratio 1.7 ()?? 04/05/2022 20:53 Alkaline Phosphatase 90 units/L ()?? 04/05/2022 20:53 Lipase 32 units/L ()?? 04/05/2022 20:53 AST (SGOT) 17 units/L ()?? 04/05/2022 20:53 ALT (SGPT) 19 units/L ()?? 04/05/2022 20:53 Bilirubin, Total 0.2 mg/dL ()?? 04/05/2022 20:53 Lactate 1.6 mmol/L ()?? 04/05/2022 20:53 ?? HEME OTHER Hold Blue Top SPECIMEN DISCARDED AFTER 4 HOURS. ()?? 04/05/2022 20:53 ?? UA/URINALYSIS Appear/Color, Urine LIGHT YELLOW ()?? 04/05/2022 22:30 Specific [place], Urine 1.034 (High)?? 04/05/2022 22:30 pH, Urine 5.5 ()?? 04/05/2022 22:30 Albumin, Urine NEGATIVE ()?? 04/05/2022 22:30 Glucose, Urine 4+ (Abnormal)?? 04/05/2022 22:30 Ketones, Urine NEGATIVE ()?? 04/05/2022 22:30 Bilirubin, Urine NEGATIVE ()?? 04/05/2022 22:30 Hemoglobin, Urine TRACE (Abnormal)?? 04/05/2022 22:30 Nitrite, Urine NEGATIVE ()?? 04/05/2022 22:30 Leukocyte, Urine NEGATIVE ()?? 04/05/2022 22:30 Urobilinogen NORMAL mg/dL ()?? 04/05/2022 22:30 WBC's, Urine NONE SEEN /HPF ()?? 04/05/2022 22:30 RBC's, Urine 6 /HPF (High)?? 04/05/2022 22:30 Mucus SLIGHT /LPF ()?? 04/05/2022 22:30 Hold Urine Culture Testing available 48 hours from time of collection. ()?? 04/05/2022 22:30 ?? VIROLOGY COVID-19 by RT-PCR NEGATIVE ()?? 04/05/2022 20:53 ? US Heart * Event Display: Echocardiogram - Complete Authored Date: Transthoracic Echocardiography Report (TTE) Patient Demographics Patient Name OSCAR MURRAY Date of Study 04/08/2022 Corporate Gender Male Facility Race Ethnicity Date of 1945 Height: 66.14 inches Age 77 year(s) Weight: 163.14 pounds Accession Number [id number] BSA: 1.84 m2 Room Number D322 BMI: 26.22 kg/m2 Referring Physician Agnieszka Worthington MD Interpreting Marisol Muir MD Not on Staff Physician Referring Front End Developer Designer Ailyn Ball RCS Indications Heart failure. Clinical History ASHD COPD. CAD. Diabetes Mellitus. Hypertension. Hyperlipidemia. Previous CABG. Previous stent. Study Data Type of Study TTE procedure:Echo Complete-Doppler, Colorflow, M-Mode. Study Date04/08/2022 Start Time: 10:14 AM Study Location: [facility] Adult Echo Study Status: Echo lab Patient Status: Routine Technical Quality: Adequate Blood Pressure:134/38 mmHg EKG: Normal sinus rhythm HR: 62 bpm Allergies - Other allergy:(duloxotine). 2D Measurements LV Diastolic Dimension: 3.8 cm LV Systolic Dimension: 2.8 cm LV Septum Diastolic: 1.15 cm LV PW Diastolic: 0.88 cm AO Root Dimension: 3.1 cm LA Dimension: 4.1 cm LA ESV (BP):42.2 ml LVOT Stroke Volume: 46.54 ml LA ESV Index: 23 ml/m2 Stroke Volume Index25.29 ml/m2 LVOT: 1.8 cm Cardiac Index:1.57 l/min/m2 Ascending Aorta:3.1 cm Doppler Measurements AV Peak Velocity: 105 cm/s MV Peak E-Wave: 60.3 cm/s AV Peak Gradient: 4.41 mmHg MV Peak A-Wave: 88.8 cm/s AV Mean Gradient: 2 mmHg MV E/A Ratio: 0.68 AV VTI:22.4 cm LVOT Peak Velocity: 88.2 cm/s LVOT VTI18.3 cm MV Deceleration Time: 274 msec AV Area (Continuity):2.08 cm2 TR Velocity:164 cm/s PV Peak Velocity: 110 cm/s TR Gradient:10.76 mmHg PV Peak Gradient: 4.84 mmHg E' Septal Velocity: 4.68 cm/s E' Lateral Velocity: 8.38 cm/s E/Med E':12.49946 E/Lat E':7.090651 Cardiac Anatomy Left Ventricle/Interventricular Septum The left ventricular size is normal. 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 There is mild septal hypertrophy. The LV systolic function is low normal . The left ventricular ejection fraction is 45-50 %. The mid to distal anteroseptal, mid to distal inferoseptal, inferior willis are akinetic. The apex is not well visualized. There is abnormal septal motion consistent with prior cardiac surgery . Grade I, mild diastolic dysfunction with impaired LV relaxation. Left Atrium/Interatrial Septum The left atrium is normal in size. The interatrial septum appears intact. Aortic Valve The aortic valve is trileaflet. There is no significant aortic stenosis or regurgitation. Mitral Valve There is mild mitral annular calcification. There is trace mitral regurgitation. Aorta The ascending aorta and aortic root are normal in size. Right Ventricle The right ventricle is normal in size. Right ventricular systolic function appears preserved. Right Atrium The right atrium is normal in size. Pulmonic Valve The pulmonic valve is normal in structure and function. There is trace pulmonic regurgitation. Tricuspid Valve The tricuspid valve appears grossly normal. There is trace tricuspid valve regurgitation. Pumonary Artery An accurate pulmonary artery pressure could not be obtained. Venous Structures The inferior vena cava size is normal with normal inspiratory collapse. Pericardium/Extracardiac There is a trivial pericardial effusion posteriorly . Summary The left ventricular size is normal. 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 There is mild septal hypertrophy. The LV systolic function is low normal . The left ventricular ejection fraction is 45-50 %. The mid to distal anteroseptal, mid to distal inferoseptal, inferior willis are akinetic. The apex is not well visualized. There is abnormal septal motion consistent with prior cardiac surgery . Grade I, mild diastolic dysfunction with impaired LV relaxation. The aortic valve is trileaflet. There is no significant aortic stenosis or regurgitation. There is mild mitral annular calcification. There is trace mitral regurgitation. The right ventricle is normal in size. Right ventricular systolic function appears preserved. There is a trivial pericardial effusion posteriorly . Comparison Comparison is made to the study report of February 15, 2021. There is no significant change. Signature * Event Display: Echocardiogram - Complete Authored Date: [id number] Note * Cindy Evans LPN: PERFORM Event Display: Discharge/Transfer Note Hospital Authored Date: Nursing Discharge Note Entered On: 04/08/2022 16:01 EST Performed On: 04/08/2022 16:01 EST by Cindy Evans LPN Nursing Discharge Note 2 Discharge Time : 04/08/2022 16:01 EST Discharge Level of Care at Discharge : Home/Jail/Foster Care Patient Left Unit Via : Wheelchair Patient Accompanied Off Unit with : Responsible adult DC Instructions Provided & Signed by Pt : Yes Patient Understands D/C Instructions : Yes Patient Instructions Discharge Signed : Yes Did Pt have Specialty Bed or Wound Vac : No Cindy Evans LPN - 04/08/2022 16:01 EST * Robert Melo MD: PERFORM Event Display: Discharge/Transfer Note Hospital Authored Date: [id number] Patient: ??NOCHENGL, OSCAR ? Age:??77 Years?Sex:??Male?:??1945?? Patient Information Discharge Location: [facility] Primary Care Physician: Leticia Foster NP Admit Date/Time: 04/07/22 11:28 Discharge Disposition Discharge Disposition: Home: No Services 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 Acute renal failure superimposed on stage 2 chronic kidney disease (N17.9) Chest pain (R07.9) Non-insulin dependent type 2 diabetes mellitus (E11.9) S/P CABG (coronary artery bypass graft) (Z95.1) ?? _ Discharge Medications Albuterol (albuterol 90 mcg/inh inhalation powder)?2?puff(s)?Inhalation?Every 4 hours?as needed?as needed Amlodipine (amLODIPine 5 mg oral tablet)?1?tab(s)?5?Milligram?By Mouth?Daily?TAKE 1 TABLET BY MOUTH DAILY Ascorbic Acid (Vitamin C 500 mg oral tablet)?1?tab(s)?500?Milligram?By Mouth?Daily Aspirin (aspirin 81 mg oral enteric coated capsule)?1?capsule?81?Milligram?By Mouth?Daily Atorvastatin (atorvastatin 80 mg oral tablet)?1?tab(s)?By Mouth?Daily Baclofen (baclofen 10 mg oral tablet)?0.5?tablet?By Mouth?3 times a day Carvedilol (Coreg 6.25 mg oral tablet)?6.25?Milligram?1?tablet?By Mouth?2 times aday Cholecalciferol (Vitamin D3 2000 intl units oral capsule)?1?capsule?2,000?InternationalUnit?By Mouth?Daily Clopidogrel (clopidogrel 75 mg oral tablet)?75?Milligram?1?tablet?By Mouth?Daily?Continue medication through 09/2021 unless otherwise instructed. dapagliflozin (Farxiga 10 mg oral tablet)?1?tab(s)?10?Milligram?By Mouth?Daily?Increased strength Durable Medical Equipment (Glucagon Emergency Kit)?See Instructions?as needed?Blood Glucose?use as directed for Type 1 Diabetes Mellitus Durable Medical Equipment (Freestyle Lancets)?See Instructions?for 30?Days?use as directed for Type 2 Diabetes Mellitusto test blood sugar BIDE11.9LON-lifetime Durable Medical Equipment (Freestyle Lite Test Strips)?See Instructions?for 30?Days?useas directed for Type 2 Diabetes Mellitusto test blood sugar BIDE11.9LON-lifetime Isosorbide Mononitrate (isosorbide mononitrate 60 mg oral tablet, extended release)?60?Milligram?1?tablet?By Mouth?Daily in AM Lamotrigine (lamotrigine 25 mg oral tablet)?25?Milligram?1?tablet?By Mouth?2 times a day Lisinopril (lisinopril 5 mg oral tablet)?5?Milligram?1?tablet?By Mouth?Daily Nitroglycerin (nitroglycerin 0.3 mg sublingual tablet)?1?tab(s)?0.3?Milligram?Sublingual?Every 5 minutes?as needed?as needed for chest pain?not to exceed 3 doses/15 min--ifpain persists, seek medical attention Omeprazole (omeprazole 20 mg oral enteric coated capsule)?1?capsule?20?Milligram?By Mouth?Daily?for 90?Days?before breakfast Oxycodone (oxyCODONE 10 mg oral tablet)?1?tab(s)?10?Milligram?By Mouth?Every 4 hours?as needed?as needed for pain?chronic back pain ? Medications Started No medications started Medications Discontinued No medications discontinued Doses Changed Carvedilol uptitrated??and isosorbide mononitrate uptitrated per cardiology PCP Follow-Up/Heads-Up Follow-up with cardiology for continued medical management Follow-up CBC??and next PCP appointment follow-up thrombocytopenia Future Appointments Friday 2:45 PM EST ?? With: Where: [facility] Friday 12:50 PM EST ?? With: Kristin SIMS, Leticia [place] Where: [place] [address]- Hospital Course 77-year-old male with history of coronary artery disease status post CABG, hypertension, hyperlipidemia, type 2 diabetes mellitus, COPD, CKD, ISREAL on CPAP, BPH, history of spinal stenosis, chronic back pain presenting to the emergency department complaints of chest pain, back pain since 3 PM yesterday afternoon. ?? He developed chest pain at approximately 3 PM day prior to admission while he was resting. Pain radiated to his shoulder and responded after 3 nitroglycerin. The pain was similar to his previous IL. EKG with no acute ischemic changes. Given the nature of the pain CT angiogram of the chest and abdomen was done which did not reveal any evidence of PE, aortic dissection. ?? He underwent a nuclear stress test which was positive and showed severe fixed perfusion defect in the left ventricular apex as well as moderately partial reversible perfusion defect in the apical inferior, apical septal and apical anterior wall consistent with distal LAD infarct with mild darlyn-infarct ischemia. He was evaluated by cardiology who recommended a formal echocardiogram with no significant change from echocardiogram and 2020. Cardiology recommended discharge with medical management including uptitrating carvedilol and isosorbide mononitrate. He had no chest pain on day of discharge. ?? Objective Assessment and Plan OSCAR??NOFAL??is a??77 Years??Male??with coronary artery disease status post CABG, hypertension, hyperlipidemia, type 2 diabetes mellitus, COPD, CKD, ISREAL on CPAP, BPH, history of spinal stenosis, chronic back pain presenting to the emergency department complaints of chest pain with positive nuclearstress test??with medical management planned per cardiology. ?? CAD status post CABG Chest pain Positive nuclear stress test Initial presentation:??Chest pain on the left chest with pressure sensation??going to his back??which improved with??3??doses of nitroglycerin. ??Pain similar to??his previous??UA episode preceding CABG Troponin x4 negative. ??Normal sinus rhythm with first degree AVB on telemetry. ?? Recommendations: ??? Carvedilol??6.25 mg twice daily from 3.125 mg twice daily ??? Isosorbide mononitrate??60 mg??ER (from 30 mg ER) ?PCP follow-up in 3 to 5 days ?Cardiology follow-up??as outpatient ?? Acute on??CKD 2: Baseline creatinine 1.1 mg/dL.??Resolved s/p fluids Thrombocytopenia: Baseline 100- 140K.?? Around baseline ?? Chronic Issues: Hypertension: Amlodipine,?? lisinopril Vitamin C deficiency: Vitamin C Type 2??Diabetes Mellitus: Hemoglobin A1C (Monitoring) (12/26/21): 7.2%. Continue home regimen: dapagliflozin. Adjustment disorder: Lamotrigine GERD: Pantoprazole History of of spinal stenosis and chronic back pain: Baclofen as needed, home oxycodone Mild intermittent asthma: Albuterol as needed ?? 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 04/05/2022 22:56. Plan:??PCP Follow-up. Recommend follow-up ultrasound or CTA in 10 years per simplified ACR and SVS guidelines. Small type I hiatal hernia : Seen on CT Angio Chest ?? 04/05/2022. Plan:??PCP Follow-up ?? Measurements?? Height: 168 cm (04/08/22) Weight: 74 kg (04/06/22) Dry Weight: 74 kg (04/06/22) Body Mass Index:??26.22 kg/m2??High (04/06/22) ? Vital Signs?? Temperature: 97.7 DegF (04/08/22 10:57:00) Temperature Route: Oral (04/08/22 10:57:00) Pulse Rate: 63 bpm (04/08/22 10:57:00) Respiratory Rate: 18 br/min (04/08/22 10:57:00) Systolic Blood Pressure: 106 mm Hg (04/08/22 10:57:00) Diastolic Blood Pressure:??54 mm Hg??Low (04/08/22 10:57:00) Blood pressure sites: Arm, left (04/08/22 10:57:00) Mean Arterial Pressure: 89 mm Hg (04/08/22 07:31:00) Pulse Pressure: 61 mm Hg (04/08/22 07:31:00) Oxygen Saturation: 96 % (04/08/22 10:57:00) Mode of Delivery (Oxygen): Room air (04/08/22 10:57:00) Early Warning Score: 5 (04/08/22 13:48:33) ? Ventilator Settings?? No qualifying data available. ? Intake/Output? 04/07 11:28 04/08 07:00 04/07 07:00 04/06 07:00 04/05 07:00 ?? 04/08 15:52 04/08 15:52 04/08 06:59 04/07 06:59 04/06 06:59 Intake ? 1723.9 ?0 ? 1483.9 ?240 ?0 Output ? 1250 ?0 ?950 ?300 ?0 Net Total ?473.9 ?0 ?533.9 ?-60 ?0 ? . Physical Exam Vital Signs (24 hrs) Last Charted?? Minimum?? Maximum?? Resp Rate?? 18?? 04/08/2022 10:57?? 18?? 04/07/2022 15:11 ?? 22?? 04/07/2022 18:29?? SBP?? 106?? 04/08/2022 10:57?? 106?? 04/08/2022 10:57 ?? H??143?? 04/07/2022 18:29?? DBP?? L??54?? 04/08/2022 10:57?? L??54?? 04/08/2022 10:57 ?? 73?? 04/07/2022 18:29? General Appearance: The patient is in NAD. HEENT: Injected right??sclerae. Cardiovascular: RRR S1 and S2 heard with no M/R/G. Respiratory: ??Breath sounds clear to auscultation bilaterally. No wheezing. Good air movement throughout both lungs. GI: Soft. Nontender and nondistended. Normal bowel sounds present throughout abdomen.?? MS: ??No edema or erythema in the lower extremities. Neuro: ??No slurred speech. ??Patient seen moving their upper and lower extremities independently. Psych: Appropriate and pleasant. Lines: Peripheral IV in place.? Consultants ?Consultation Note ?? 04/07/2022 18:57??by Nura Diaz MD ?Cardiology ?? Pending Results CBC ordered on 04/07/2022 COVID-19 (2019 Novel Coronavirus) PCR ordered on 04/08/2022 Hold Lavender Tube (BB) ordered on 04/05/2022 Hold Lavender Tube (BB) ordered on 04/08/2022 Patient Education Titles Carvedilol Oral Tablet?? Isosorbide Extended Release Oral Tablet?? Discharge Instructions for Angina?? Zones AMI?? Follow-Up Appointments Added Follow Up ?Time Frame ?Comments Nura Diaz MD?1 to 2 weeks Leticia Foster NP?3-5 day: call to discuss follow up visit Patient Instructions You were seen at [facility] for??chest pain.?? You had a positive stress test??but were evaluated by??cardiology??who??decided to manage your??chest pain with??medications.?? Dose of your carvedilol and??isosorbide mononitrate??were increased. ?? Here is what you need to do: ?Follow-up with your PCP in 3 to 5 days ??? Follow-up with cardiology??in 1 to 2 weeks ?Take your new medications as??prescribed ?If any chest pain, sweating, shortness of breath, please call your primary care physician or come to the emergency department for further evaluation. Post Discharge Care Diet: Cardiac diet Discharge ?04/08/22 15:21:00 EST Discharge Prescriptions ?ePrescribed, ??04/08/22 15:21:00 EST Home Health Face to Face ^HomeHealthFTF Results Discharge Labs BLOOD COUNT & DIFF WBC 7.0 k/mm3 ()?? 04/08/2022 07:17 RBC 4.86 m/mm3 ()?? 04/08/2022 07:17 Hgb 14.1 Gm/dL ()?? 04/08/2022 07:17 Hct 42.9 % ()?? 04/08/2022 07:17 MCV 88.3 femtoliters ()?? 04/08/2022 07:17 MCH 29.0 pg ()?? 04/08/2022 07:17 MCHC 32.9 g/dL (Low)?? 04/08/2022 07:17 Platelet Count 111 k/mm3 (Low)?? 04/08/2022 07:17 RDW-SD 44.8 femtoliters ()?? 04/08/2022 07:17 MPV 12.7 femtoliters (High)?? 04/08/2022 07:17 Nucleated RBC (Automated) 0.0 #/100 WBC'S ()?? 04/08/2022 07:17 Abs. NRBC 0.0 k/mm3 ()?? 04/08/2022 07:17 Abs. Neut 8.0 k/mm3 (High)?? 04/06/2022 03:44 Abs. Lymph 1.8 k/mm3 ()?? 04/06/2022 03:44 Abs. [place] 1.4 k/mm3 (High)?? 04/06/2022 03:44 Abs. Eo 0.2 k/mm3 ()?? 04/06/2022 03:44 Abs. Baso 0.1 k/mm3 ()?? 04/06/2022 03:44 Neut % 69.7 % ()?? 04/06/2022 03:44 Lymph % 15.5 % ()?? 04/06/2022 03:44 Sp[place]ding % 11.9 % (High)?? 04/06/2022 03:44 Eos % 2.1 % ()?? 04/06/2022 03:44 Baso % 0.4 % ()?? 04/06/2022 03:44 Imm Gran 0.4 % ()?? 04/06/2022 03:44 Abs. Imm Gran 0.1 k/mm3 ()?? 04/06/2022 03:44 ?? CARDIAC Troponin T Quant <0.01 ng/mL ()?? 04/06/2022 13:04 Nt-Probnp 388 pg/mL ()?? 04/05/2022 20:53 ?? CHEM GENERAL Sodium 138 mmol/L ()?? 04/08/2022 07:17 Potassium 3.9 mmol/L ()?? 04/08/2022 07:17 Chloride 102 mmol/L ()?? 04/08/2022 07:17 Bicarbonate Level 25 mmol/L ()?? 04/08/2022 07:17 Anion Gap 11 ()?? 04/08/2022 07:17 Glucose Level 146 mg/dL (High)?? 04/06/2022 03:44 Glucose, POC 116 mg/dL (High)?? 04/08/2022 13:01 BUN 21 mg/dL ()?? 04/08/2022 07:17 Creatinine-Blood 1.1 mg/dL ()?? 04/08/2022 07:17 Estimated GFR Creatinine 69 ML/MIN/1.73 M2 ()?? 04/08/2022 07:17 Calcium 9.7 mg/dL ()?? 04/06/2022 03:44 Magnesium 2.0 mg/dL ()?? 04/08/2022 07:17 Protein, Total 6.8 Gm/dL ()?? 04/05/2022 20:53 Albumin 4.3 Gm/dL ()?? 04/05/2022 20:53 AG Ratio 1.7 ()?? 04/05/2022 20:53 Alkaline Phosphatase 90 units/L ()?? 04/05/2022 20:53 Lipase 32 units/L ()?? 04/05/2022 20:53 AST (SGOT) 17 units/L ()?? 04/05/2022 20:53 ALT (SGPT) 19 units/L ()?? 04/05/2022 20:53 Bilirubin, Total 0.2 mg/dL ()?? 04/05/2022 20:53 Lactate 1.6 mmol/L ()?? 04/05/2022 20:53 ? COAG APTT 75.5 seconds (High)?? 04/08/2022 07:17 ? HEME OTHER Hold Blue Top SPECIMEN DISCARDED AFTER 4 HOURS. ()?? 04/05/2022 20:53 ? UA/URINALYSIS Appear/Color, Urine LIGHT YELLOW ()?? 04/05/2022 22:30 Specific [place], Urine 1.034 (High)?? 04/05/2022 22:30 pH, Urine 5.5 ()?? 04/05/2022 22:30 Albumin, Urine NEGATIVE ()?? 04/05/2022 22:30 Glucose, Urine 4+ (Abnormal)?? 04/05/2022 22:30 Ketones, Urine NEGATIVE ()?? 04/05/2022 22:30 Bilirubin, Urine NEGATIVE ()?? 04/05/2022 22:30 Hemoglobin, Urine TRACE (Abnormal)?? 04/05/2022 22:30 Nitrite, Urine NEGATIVE ()?? 04/05/2022 22:30 Leukocyte, Urine NEGATIVE ()?? 04/05/2022 22:30 Urobilinogen NORMAL mg/dL ()?? 04/05/2022 22:30 WBC's, Urine NONE SEEN /HPF ()?? 04/05/2022 22:30 RBC's, Urine 6 /HPF (High)?? 04/05/2022 22:30 Mucus SLIGHT /LPF ()?? 04/05/2022 22:30 Hold Urine Culture Testing available 48 hours from time of collection. ()?? 04/05/2022 22:30 ? VIROLOGY COVID-19 by RT-PCR NEGATIVE ()?? 04/05/2022 20:53 ? Microbiology ?? COVID-19 (Novel Coronavirus), Rapid PCR?? Completed?? Source: Nasal Body Site: Nose Collected Dt/Tm: 04/05/2022 20:47 Last Updated Dt/Tm: 04/05/2022 21:55 ? Imaging(s) ?CT Angio Chest ?? 04/05/2022 22:56??by Andre Camilo MD ?No aortic dissection. Ectatic infrarenal aorta measuring up to 2.9 cm. Recommend follow-up ultrasound or CTA in 10 years per simplified ACR and SVS guidelines. Reference: Hitesh EL et al. J Vasc Surg 2018; 67:2-77. Society for Vascular Surgery 2018 practice guidelines on the care of patients with an abdominal aortic aneurysm. Diffuse bronchial wall thickening suggesting bronchitis. Small type I hiatal hernia and possible mild distal esophagitis. Duodenal mass and cystic pancreatic lesions seen on recent MRI are not visualized. ?NM Myocard Perf SPECT Multi ?? 04/07/2022 00:00??by Margy Parks MD ?Summary ??1. Myocardial perfusion imaging is abnormal after Regadenoson infusion. ??There is severe fixed perfusion defect in the left ventricular apex, as well ??as moderate partially reversible perfusion defects in the apical inferior, ??apical septal and apical anterior wall, consistent with distal LAD infarct ??with mild darlyn-infarct ischemia. Mild , fixed perfusion defect of the ??anteroseptal and inferoseptal wall, also suggestive of mild infarct. ??2. LV function is normal with an E.F. of 60 % at rest and 53 % after IV ??administration of Regadenoson with akinesis of the apex. ??3. EKG portion of the stress test is reported separately. ?Echocardiogram - Complete ?? 04/08/2022 10:14??by Marisol Muir MD ?Summary ??The left ventricular size is normal. There is a small distal inferoseptal ??aneurysm. There is mild septal hypertrophy. The LV systolic function is low ??normal . The left ventricular ejection fraction is 45-50 %. The mid to ??distal anteroseptal, mid to distal inferoseptal, inferior willis are ??akinetic. The apex is not well visualized. There is abnormal septal motion ??consistent with prior cardiac surgery . Grade I, mild diastolic dysfunction ??with impaired LV relaxation. ??The aortic valve is trileaflet. There is no significant aortic stenosis or ??regurgitation. ??There is mild mitral annular calcification. There is trace mitral ??regurgitation. ??The right ventricle is normal in size. Right ventricular systolic function ??appears preserved. ??There is a trivial pericardial effusion posteriorly . ?? Comparison ??Comparison is made to the study report of February 15, 2021. There is no ??significant change. ?CT Angio Abdomen and Pelvis ?? 04/05/2022 22:56??by Leslee RICHARD, Andre ?No aortic dissection. Ectatic infrarenal aorta measuring up to 2.9 cm. Recommend follow-up ultrasound or CTA in 10 years per simplified ACR and SVS guidelines. Reference: Chaikof EL et al. J Vasc Surg 2018; 67:2-77. Society for Vascular Surgery 2018 practice guidelines on the care of patients with an abdominal aortic aneurysm. Diffuse bronchial wall thickening suggesting bronchitis. Small type I hiatal hernia and possible mild distal esophagitis. Duodenal mass and cystic pancreatic lesions seen on recent MRI are not visualized. ? Consults(s) ?Consultation Note ?? 04/07/2022 18:57??by Nura Diaz MD ?Cardiology ? 35??minutes spent on discharge * Cindy Evans LPN: PERFORM Event Display: Patient Education/Instruction Authored Date: [id number] Inpatient Adult Discharge Instructions [address] [address] Name: OSCAR MURRAY : 1945 Visit: 04/07/2022 11:28:00 Current Date: 04/08/2022 15:35 Account: [id number] Inpatient Adult Discharge Instructions We would like [...] and their families. Surveys are administered by Not iT. ?? If further treatment with your primary care physician or another doctor is recommended, it is important for you to keep the appointment. Call your primary care physician or return to the Emergency Department immediately if your condition worsens, fails to improve, or new symptoms develop. If you need to find a doctor, you can call [facility] [employer] for a referral at [phone] or toll free at [phone] or log in to [email or web address] ?? You can view and manage your care through the patient portal or by using a health care kentrell of your choosing. [employer] is a website that allows you to securely view your medical information including your hospital discharge summary, office visit summaries, medications and follow-up visits. You can also request appointments, renew medications, and request access to your medical information using a health care kentrell of your choosing, or just ask a question. You can enroll at [email or web address] or register during your next office visit. You have been discharged from [facility], Patient Care Unit: D3B. If you have any questions regarding these instructions after you leave, please call us and we will be happy to assist you. [facility] Your Care Team Attending Physician Kameron RICHARD, Robert Consulting Providers Nura Diaz MD Discharging Providers Robert Melo MD Reason for Admission CP this AM took 3 nitro himself then when to eye doctor - when home to eat reoccurant CP and LUQ and LLQ abd pain. Your Diagnosis Chest pain Tests Performed Below is a partial list of the tests performed during your hospitalization. You may have had other tests and procedures not included in this list. Please discuss all test results with your provider. Basic Metabolic Panel BUN CBC CBC w/ Differential Comprehensive Metabolic Panel COVID-19 (Novel Coronavirus), Rapid PCR Creatinine Electrolytes GLUCOSE POC Hold Blue Top Tube Lactate Level Lipase Magnesium Level ProBNP PTT Troponin T Quant Urinalysis w/hold for Urine Culture CT Angio Abdomen and Pelvis CT Angio Chest Primary Care Provider Lteicia Foster NP Advance Directive Health Care Proxy on File Yes - Health Care Proxy Yes - MOLST No qualifying data available. Discharge Vitals Temperature: 97.7 DegF Height: 168 cm Pulse Rate: 63 bpm Weight: 74 kg Respiratory Rate: 18 br/min Body Mass Index:??26.22 kg/m2??High Systolic Blood Pressure: 106 mm Hg Body surface area: 1.86 Diastolic Blood Pressure:??54 mm Hg??Low ?? Oxygen Saturation: 96 % ?? Studies Pending All tests and labs ordered during this hospital stay have been completed unless listed below. Please discuss all pending results with your provider listed above in these instructions. ?? CBC COVID-19 (2019 Novel Coronavirus) PCR Hold Lavender Tube (BB) (HOLD LAV TUBE BLOOD BANK) What to do next Instructions From Your Doctor You were seen at [facility] for??chest pain.?? You had a positive stress test??but were evaluated by??cardiology??who??decided to manage your??chest pain with??medications.?? Dose of your carvedilol and??isosorbide mononitrate??were increased. ?? Here is what you need to do: ?Follow-up with your PCP in 3 to 5 days ??? Follow-up with cardiology??in 1 to 2 weeks ?Take your new medications as??prescribed ?If any chest pain, sweating, shortness of breath, please call your primary care physician or come to the emergency department for further evaluation. Discharge Orders Diet:??Cardiac diet Scheduled Follow-Up Appointments Friday 2:45 PM EST ?? With: Where: [facility] Friday 12:50 PM EST ?? With: Leticia Foster NP Where: [place] [address]- You Need to Schedule the Following Appointments Follow Up with??Nura Diaz MD When??Within 1 to 2 weeks Where: [address] [facility] [place] [place] [address]- Follow Up with??Leticia Foster NP When??Within 3-5 day: call to discuss follow up visit Where: [address] [facility] [place] [address]- Discharge Medications OSCAR MURRAY :1945 Visit Date:04/07/2022 Medications: Please continue your medications until treatment is completed or stopped by your provider. Medications not listed below should be discontinued. Discuss any questions related to medications with your provider. What How Much When Instructions Next Dose Changed Carvedilol (Coreg 6.25 mg oral tablet) 1 tab(s) Oral Twice a day Pickup at [place] [address] 04/08/22 evening ?? Changed Isosorbide Mononitrate (isosorbide mononitrate 60 mg oral tablet, extended release) 1 tab(s) Oral Daily in the morning Pickup at [place] [address] 04/09/22 Unchanged Albuterol (albuterol 90 mcg/ inh inhalation powder) 2 puff(s) Inhalation Every 4 hours as needed for as needed as needed follow as prescribe Unchanged Amlodipine (amLODIPine 5 mg oral tablet) 1 tab(s) Oral Daily TAKE 1 TABLET BY MOUTH DAILY ?? 04/09/22 Unchanged Ascorbic Acid (Vitamin C 500 mg oral tablet) 1 tab(s) Oral Daily 04/09/22 Unchanged Aspirin (aspirin 81 mg oral enteric coated capsule) 1 capsule Oral Daily 04/09/22 Unchanged Atorvastatin (atorvastatin 80 mg oral tablet) 1 tab(s) Oral Daily 04/09/22 Unchanged Baclofen (baclofen 10 mg oral tablet) 0.5 tab(s) Oral 3 times a day 04/08/22 evening ?? Unchanged Cholecalciferol (Vitamin D3 2000 intl units oral capsule) 1 capsule Oral Daily 04/09/22 Unchanged Clopidogrel (clopidogrel 75 mg oral tablet) 1 tab(s) Oral Daily Continue medication through 2021 unless otherwise instructed. ?? 04/09/22 Unchanged dapagliflozin (Farxiga 10 mg oral tablet) 1 tab(s) Oral Daily Increased strength ?? 04/09/22 Unchanged Durable Medical Equipment (Freestyle Lancets) See instructions Duration: 30 Days use as directed for Type 2 Diabetes Mellitus to test blood sugar BID E11.9 PHILLIP-lifetime ?? see instructions Unchanged Durable Medical Equipment (Freestyle Lite Test Strips) See instructions Duration: 30 Days use as directed for Type 2 Diabetes Mellitus to test blood sugar BID E11.9 PHILLIP-lifetime ?? see instructions Unchanged Durable Medical Equipment (Glucagon Emergency Kit) See Instructions As needed for Blood Glucose use as directed for Type 1 Diabetes Mellitus ?? see instructions Unchanged Lamotrigine (lamotrigine 25 mg oral tablet) 1 tab(s) Oral Twice a day 04/08/22 evening Unchanged Lisinopril (lisinopril 5 mg oral tablet) 1 tab(s) Oral Daily 04/09/22 Unchanged Nitroglycerin (nitroglycerin 0.3 mg sublingual tablet) 1 tab(s) Sublingual Every 5 minutes as needed for as needed for chest pain not to exceed 3 doses/ 15 min--if pain persists, seek medical attention ?? as needed follow as prescribe Unchanged Omeprazole (omeprazole 20 mg oral enteric coated capsule) 1 capsule Oral Daily Duration: 90 Days before breakfast ?? 04/09/22 Unchanged Oxycodone (oxyCODONE 10 mg oral tablet) 1 tab(s) Oral Every 4 hours as needed for as needed for pain chronic back pain ?? as needed follow as prescribe [facility] [address], [place] [id number] [phone] ?? What How Much When Comments Stop Taking Docusate (docusate sodium 100 mg oral capsule) 1 capsule Oral Twice a day Stop Taking Ezetimibe (ezetimibe 10 mg oral tablet) 1 tab(s) Oral Daily take with atorvastatin ?? Stop Taking Lidocaine Topical (lidocaine 5% topical film) Topically Daily Stop Taking umeclidinium (Incruse Ellipta 62.5 mcg/ inh inhalation powder) 1 Each Inhalation Every 24 hours doses should be taken at least 24 hours apart repaces spitriva ?? Test Results Below is a partial list of the most recent Laboratory test results done prior to this discharge. You may have had other tests and procedures not included in this list. Please discuss all test resultswith your provider. Basic Metabolic Panel (04/06/2022) ???Sodium - 137 mmol/L???Potassium - 4.8 mmol/L???Chloride - 100 mmol/L???Bicarbonate Level - 30 mmol/L???Anion Gap - 7???Glucose Level - 146 mg/dL???BUN - 13 mg/dL???Creatinine-Blood - 1.1 mg/dL???Estimated GFR Creatinine - 68 ML/MIN/1.73 M2???Calcium - 9.7 mg/dL BUN (04/08/2022) ???BUN - 21 mg/dL CBC (04/08/2022) ???WBC - 7.0 k/mm3???RBC - 4.86 m/mm3???Hgb - 14.1 Gm/dL???Hct - 42.9 %???MCV - 88.3 femtoliters???MCH - 29.0 pg???MCHC - 32.9 g/dL???Platelet Count - 111 k/mm3???RDW-SD - 44.8 femtoliters???MPV - 12.7 femtoliters???Nucleated RBC (Automated) - 0.0 #/100 WBC'S???Abs. NRBC - 0.0 k/mm3 CBC w/ Differential (04/06/2022) ???WBC - 11.5 k/mm3???RBC - 5.24 m/mm3???Hgb - 15.3 Gm/dL???Hct - 46.7 %???MCV - 89.1 femtoliters???MCH - 29.2 pg???MCHC - 32.8 g/dL???Platelet Count - 124 k/mm3???RDW-SD - 45.9 femtoliters???MPV - 12.5 femtoliters???Nucleated RBC (Automated) - 0.0 #/100 WBC'S???Abs. NRBC - 0.0 k/mm3???Abs. Neut - 8.0 k/mm3???Abs. Lymph - 1.8 k/mm3???Abs. [place] - 1.4 k/mm3???Abs. Eo - 0.2 k/mm3???Abs. Baso - 0.1 k/mm3???Neut % - 69.7 %???Lymph % - 15.5 %???[place] % - 11.9 %???Eos % - 2.1 %???Baso % - 0.4 %???Imm Gran - 0.4 %???Abs. Imm Gran - 0.1 k/mm3 Comprehensive Metabolic Panel (04/05/2022) ???Sodium - 140 mmol/L???Potassium - 4.1 mmol/L???Chloride - 102 mmol/L???Bicarbonate Level - 27 mmol/L???Anion Gap - 11???Glucose Level - 225 mg/dL???BUN - 17 mg/dL???Creatinine-Blood - 1.2 mg/dL???Estimated GFR Creatinine - 65 ML/MIN/1.73 M2???Calcium - 9.4 mg/dL???Protein, Total - 6.8 Gm/dL???Albumin - 4.3 Gm/dL???AG Ratio - 1.7???Alkaline Phosphatase - 90 units/L???AST (SGOT) - 17 units/L???ALT (SGPT) - 19 units/L???Bilirubin, Total - 0.2 mg/dL COVID-19 (Novel Coronavirus), Rapid PCR (04/05/2022) ???COVID-19 by RT-PCR - NEGATIVE Creatinine (04/08/2022) ???Creatinine-Blood - 1.1 mg/dL???Estimated GFR Creatinine - 69 ML/MIN/1.73 M2 Electrolytes (04/08/2022) ???Sodium - 138 mmol/L???Potassium - 3.9 mmol/L???Chloride - 102 mmol/L???Bicarbonate Level - 25 mmol/L???Anion Gap - 11 GLUCOSE POC (04/08/2022) ???Glucose, POC - 116 mg/dL Hold Blue Top Tube (04/05/2022) ???Hold Blue Top - SPECIMEN DISCARDED AFTER 4 HOURS. Lactate Level (04/05/2022) ???Lactate - 1.6 mmol/L Lipase (04/05/2022) ???Lipase - 32 units/L Magnesium Level (04/08/2022) ???Magnesium - 2.0 mg/dL ProBNP (04/05/2022) ???Nt-Probnp - 388 pg/mL PTT (04/08/2022) ???APTT - 75.5 seconds Troponin T Quant (04/06/2022) ? ?Troponin T Quant - <0.01 ng/mL Urinalysis w/hold for Urine Culture (04/05/2022) ???Appear/Color, Urine - LIGHT YELLOW???Specific [place], Urine - 1.034???pH, Urine - 5.5???Albumin, Urine - NEGATIVE???Glucose, Urine - 4+???Ketones, Urine - NEGATIVE???Bilirubin, Urine - NEGATIVE???Hemoglobin, Urine - TRACE???Nitrite, Urine - NEGATIVE???Leukocyte, Urine - NEGATIVE???Urobilinogen - NORMAL???WBC's, Urine - NONE SEEN???RBC's, Urine - 6 /HPF???Mucus - SLIGHT???Hold Urine Culture - Testing available 48 hours from time of collection. Allergies (NKA means No Known Allergies) Duloxetine??(rash) Problems Active Problems??(39) Acute colitis 10/2021?? Adjustment disorder?? Adrenal adenoma left;incidental 2020/normal rufina.plasma meranephr/normeta?? ASHD cath September 2020 abnormal ef 35% see report?? Benign Essential Hypertension?? BPH (benign prostatic hypertrophy)?? Chronic Prostatitis?? 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%?? Coronary atherosclerosis due to calcified coronary lesion?? Diabetes mellitus with renal manifestation?? Dilated pancreatic duct needs ERCP/GI scheduling?? DM (diabetes mellitus), type 2 with peripheral vascular complications?? Elevated PSA?? Encounter for monitoring long-term proton pump inhibitor therapy?? Erectile dysfunction?? Essential familial hyperlipidemia?? Failed back syndrome sx 1991?? GERD'egd 2017?? H/O lumbar discectomy 1991?? H/O: CVA (rain stem,lacunes)?? Hematuria?? History of obstructive sleep apnea;ent sx?? Hx of acute myocardial infarction;2005 lad stent?? Hx of adenomatous colonic polyps?? Hx of CABG x3 CABG x 3 ??(ALVAREZ-mid LAD, SVG-PDA, SVG-diag)?? Inclusion cyst mucous rt tonsil?? Inguinal hernia left?? Ischemic cardiomyopathy cath September 2020 ef 35%/Echo Sept 2020 40-45%?? assisted current use of opiate analgesic?? 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 Nasal Polyps?? Opiate Agreement?? opiate contract?? Sigmoid diverticulosis?? Spinal stenosis of lumbar region?? Syncope November 12?? 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 Tubular adenoma of colon 2014/ declines another colo;2020?? Vitamin D deficiency?? Education Materials Below is the list of Educational Leaflet Providered with your Discharge Instructions. Carvedilol Oral Tablet?? Isosorbide Extended Release Oral Tablet?? Discharge Instructions for Angina?? Zones AMI?? Valuables and Belongings I fully understand and agree that [facility] accepts no responsibility for all my personal [...] to send valuables and belongings home. ?? No Valuables/Belongings: No valuables/belongings present Date for Pt to Sign Valuables/Belongings: 04/06/22 00:39:00 ?? Other Discharge Information ? Pulmonary Rehab Status?? Pulmonary Rehab Discharge Status?? Respiratory Rate: 18 br/min ? Common Emergency Awareness Tips IS [...] are strongly encouraged to quit. Please call [facility] [employer] at [phone] or [phone] or log in to [email or web address] for referrals to smoking cessation programs. ?? The National Suicide Prevention Hotline is available 16/12 if you or someone you know needs to find a reason to keep living. By calling 6-561-493-[place] (9983) you'll be connected to a skilled, trained counselor at a crisis center in your area. INPATIENT DISCHARGE INSTRUCTIONS SIGNATURE PAGE OSCAR MURRAY Location:[facility] Registration Date and Time:04/07/2022 11:28 EST Primary Care Physician: Kristin SIMS, Leticia Hope, I OSCAR MURRAY, have received the above patient education materials/instructions and have verbalized understanding. If ambulance or transport services are being used I further acknowledge being givena choice of service. ?? If you need to contact me, please call me at this number: . Patient/Software Developer Mid Level Name: Patient/Software Developer Mid Level Signature: Relationship to Patient: Witness Name/Signature: Date: * Robert Melo MD: PERFORM Event Display: Patient Education Leaflets Authored Date: [id number] Carvedilol Oral Tablet ?? [id number] Carvedilol Oral Tablet Brands: Coreg Uses This medicine is used for the following purposes: ??? heart attack ??? heart failure ??? high bloodpressure ??? irregular heart beat ??? prevent bleeding ?? Instructions Take the medicine with food. It is very important that you take the medicine at about the same time every day. It will work bestif you do this. Keep the medicine at room temperature. Avoid heat and direct light. It is important that you keep taking each dose of this medicine on time even if you are feeling well. If you forget to take a dose on time, take it as soon as you remember. If it is almost time for thenext dose, do not take the missed dose. Return to your normal dosing schedule. Do not take 2 doses of this medicine at one time. Drug interactions can change how medicines work or increase risk for side effects. Tell your healthcare providers about all medicines taken. Include prescription and akpi-zfl-rcextmu medicines, vitamins, and herbal medicines. Speak with your doctor or pharmacist before starting or stopping any medicine. This medicine may cause low blood sugar. Eat regular meals and exercise as instructed by your doctor. Tell your doctor if you have symptoms of low blood sugar such as nausea, sweating, cold skin, fast heartbeat, hunger, and irritability. If you have diabetes, this medicine may hide some signs of low blood sugar, such as fast heartbeat.Check your blood sugar regularly and for other signs of low blood sugar. Do not suddenly stop taking this medicine. Check with your doctor before stopping. ?? Cautions Tell your doctor and pharmacist if you ever had an allergic reaction to a medicine. Do not use the medication any more than instructed. Your ability to stay alert or to react quickly may be impaired by this medicine. Do not drive or operate machinery until you know how this medicine will affect you. Contact your doctor if you notice a change in the amount or darkening of your urine. Tell the doctor or pharmacist if you are , planning to be , or . Do not share this medicine with anyone who has not been prescribed this medicine. ?? Side Effects The following is a list of some common side effects from this medicine. Please speak with your doctor about what you should do if you experience these or other side effects. ??? diarrhea ??? dizziness or drowsiness ??? impotence Call your doctor or get medical help right away if you notice any of these more serious side effects: ??? swelling of the legs, feet, and hands ??? lack of energy and tiredness ??? slow heartbeat ??? low blood pressure ??? shortness of breath ??? sudden or unexplained weight gain A few people may have an allergic reaction to this medicine. Symptoms can include difficulty breathing, skin rash, itching, swelling, or severe dizziness. If you notice any of these symptoms, seek medical help quickly. ?? Extra Please speak with your doctor, nurse, or pharmacist if you have any questions about this medicine. ?? [email or web address] IMPORTANT NOTE: This document tells you briefly how to take your medicine, but it does not tell youall there is to know about it. Your doctor or pharmacist may give you other documents about your medicine. Please talk to them if you have any questions. Always follow their advice. There is a more complete description of this medicine available in [place]. Scan this code on your smartphone or tablet or use the web address below. You can also ask your pharmacist for a printout. If you have any questions, please ask your pharmacist. The display and use of this drug information is subject to Terms of Use. Copyright(c) 2021 [employer]. ?? [employer]. All rights reserved. This information is not intended as a substitute for professional medical care. Always follow your healthcare professional's instructions. ?? * Robert Melo MD: PERFORM Event Display: Patient Education Leaflets Authored Date: Isosorbide Extended Release Oral Tablet ?? [id number] Isosorbide Extended Release Oral Tablet Uses This medicine is used for the following purposes: ??? angina ??? enlarged veins ?? Instructions Swallow the medicine without crushing or chewing it. Take the medicine with 250 mL (1 cup) of water. It is very important that you take the medicine at about the same time every day. It will work bestif you do this. Take the medicine first thing in the morning. Keep the medicine at room temperature. Avoid heat and direct light. It is important that you keep taking each dose of this medicine on time even if you are feeling well. If you forget to take a dose on time, take it as soon as you remember. If it is almost time for thenext dose, do not take the missed dose. Return to your normal dosing schedule. Do not take 2 doses of this medicine at one time. Tell your doctor and pharmacist about all your medicines. Include prescription and sast-qhi-hjnvotqbtsakzcwm, vitamins, and herbal medicines. Do not suddenly stop taking this medicine. Check with your doctor before stopping. ?? Cautions Tell your doctor and pharmacist if you ever had an allergic reaction to a medicine. Do not use the medication any more than instructed. This medicine may cause dizziness or fainting, especially after exercising or in hot weather. Be very careful when standing or sitting up quickly. Your ability to stay alert or to react quickly may be impaired by this medicine. Do not drive or operate machinery until you know how this medicine will affect you. Tell the doctor or pharmacist if you are , planning to be , or . Do not take this medicine with other medicines called PDE5 inhibitors (Viagra, Levitra, Cialis). Your doctor will let you know if it is safe for you to do so. Do not start or stop any other medicines without first speaking to your doctor or pharmacist. Do not share this medicine with anyone who has not been prescribed this medicine. ?? Side Effects The following is a list of some common side effects from this medicine. Please speak with your doctor about what you should do if you experience these or other side effects. ??? dizziness ??? headaches ??? nausea Call your doctor or get medical help right away if you notice any of these more serious side effects: ??? low blood pressure A few people may have an allergic reaction to this medicine. Symptoms can include difficulty breathing, skin rash, itching, swelling, or severe dizziness. If you notice any of these symptoms, seek medical help quickly. ?? Extra Please speak with your doctor, nurse, or pharmacist if you have any questions about this medicine. ?? [email or web address] IMPORTANT NOTE: This document tells you briefly how to take your medicine, but it does not tell youall there is to know about it. Your doctor or pharmacist may give you other documents about your medicine. Please talk to them if you have any questions. Always follow their advice. There is a more complete description of this medicine available in [place]. Scan this code on your smartphone or tablet or use the web address below. You can also ask your pharmacist for a printout. If you have any questions, please ask your pharmacist. The display and use of this drug information is subject to Terms of Use. Copyright(c) 2021 [employer]. ?? [employer]. All rights reserved. This information is not intended as a substitute for professional medical care. Always follow your healthcare professional's instructions. ?? * Robert Melo MD: PERFORM Event Display: Patient Education Leaflets Authored Date: [id number] Discharge Instructions for Angina ?? 15700 Discharge Instructions for Angina You have been diagnosed with a type of chest pain called angina.??Angina occurs when your heart muscle doesn't get enough oxygen. It's most often felt under your breastbone, in your left shoulder, ordown your left arm. The pain may even spread to your jaw or back. Women may experience discomfort in different areas. Exercise, increased activity, emotional upset, or stress can trigger this pain. With proper treatment and lifestyle changes to reduce risk factors, most people with angina are able to maintain a full and active life. Managing risk factors Your healthcare provider will work with you to make lifestyle changes as needed. This can help prevent coronary artery disease from getting worse, which is likely the cause of your angina. Coronary artery disease is a narrowing of the blood vessels that supply oxygen and nutrients to theheart muscle. The blood vessels can also spasm and reduce the oxygen reaching the heart muscle fromthe narrowing inside of the artery. Managing your risk factors may prevent both of these causes of the narrowing of your arteries. ?? Diet Your healthcare provider will give you information on dietary changes that you may need to make, based on your situation. Your provider may recommend that you see a registered dietitian for help withdiet changes. Try these changes to start:? Eat less fat and cholesterol ??? Eat less salt (sodium), especially if you have high blood pressure? Eat more fresh vegetables and fruits? Eat lean proteins, such as fish, poultry, and legumes (beans and peas), and eat less red meat and processed meats ??? Use low-fat dairy products? Use vegetable and nut oils in limited amounts? Limit sweets and processed foods, such as chips, cookies, and baked goods ??? Limit sodas and high calorie drinks ??? Limit greasy and fried foods, or those high in saturated fat ??? Limit alcohol intake ?? Physical activity Your healthcare provider may recommend that you increase your physical activity if you have not been as active as possible. This may include moderate to vigorous intensity physical activity for at least 30 to 60 minutes each day for 5 to 7 days per week. A few examples of moderate to vigorous intensity physical activity include:? Walking at a brisk pace, about 3 to 4 miles per hour ??? Jogging or running ??? Swimming or water aerobics ??? Hiking ??? Dancing ??? Martial arts ??? Tennis ??? Riding a bike Don't start or increase your activity level without first seeing your healthcare provider. Follow your healthcare provider's directions for your amount and intensity of exercise. ?? Weight management If you are overweight, your healthcare provider will work with you to lose weight and lower your BMI (body mass index) to a normal or near-normal level. Making diet changes and increasing physical activity can help. A healthy and reasonable goal for weight loss is to lose 10% of your current weightper year. ?? Smoking If you smoke or use other tobacco products including chewing tobacco or electronic cigarettes (vaping), get help to quit. Enroll in a stop-smoking program to improve your chances of success. You can also join a support group. Talk to your healthcare provider about nicotine replacement products or me dicines to help you quit. ?? Stress Learn ways to manage stress to help you deal with stress in your home and work life. Your ability to place importance on your health depends on your mental health and focus. Feeling supported in the rest of your life is [place] to achieving success with your health. ?? Managing medicines ??? Keep a record of your episodes of chest pain. Take these with you when you see your healthcare provider. ??? Take your medicines exactly as directed. Don???t skip doses. If youmiss a dose, call your healthcare provider right away. ??? If you have unwanted side effects from your medicine, tell your healthcare provider right away. ?? Taking nitroglycerin ??? Keep your nitroglycerin with you at all times. ??? If you???re on nitroglycerin, don???t take medicines used to treat erectile dysfunction, such as sildenafil or tadalafil, at all. These can react with nitroglycerin and cause your blood pressure to drop dangerously low. ???If you use nitroglycerin to prevent angina attacks, follow your healthcare provider???s directions for your kind of nitroglycerin (pill, spray,??or skin patch). ??? If you use nitroglycerin to stop an angina attack, follow these steps: o Sit down, because you may become dizzy. o Put??1 tablet underyour tongue, or between your lip and gum, or between your cheek and gum. Let the tablet dissolve completely. Don't chew or swallow the tablet. o If you use a spray, then spray once on or??under your tongue. Don't inhale. Close your mouth. Wait a few seconds before you swallow and don't rinse your mouth for??5 to 10 minutes. o After taking??1 tablet or spraying once, continue sitting for 5 minutesto make sure you feel well enough to stand up. o If the angina goes away completely, rest awhile and follow your healthcare provider's directions about returning to your normal routine. o If the??chest pain or pressure??continues, [id number] right away. Don't delay. You may be having a heart attack (acute myocardial infarction, or AMI)! Don't drive yourself to the hospital if you think you are having a heart attack as this poses a risk to yourself and other drivers on the road. Take an ambulance. o You may be told by your provider to [id number] taking 2 or 3 tablets or sprays of nitroglycerin (spaced 5 minutes apart) and the chest pain or pressure is still present 5 minutes after the last dose. Don't take more than 3 tablets, or spray more than 3 times, within 15 minutes.? Call 911 This is the fastest and safest way to get to the nearest emergency department. The paramedics can also start treatment on the way to the hospital, saving valuable time for your heart. ??? If angina gets worse, it continues, or if it stops and returns, call 911 right away. Don't delay. You may be having a heart attack. Don't wait until your symptoms are severe to call 911. Other reasons to call 911 besides chest paininclude: ??? Trouble breathing ??? Feeling lightheaded, faint, or dizzy ??? Rapid heartbeat ??? Slower than usual heart rate compared to your normal ??? Angina with weakness, dizziness, fainting, heavy sweating, nausea, or vomiting ??? Extreme drowsiness, or confusion ??? Weakness of an arm or leg or on one side of the face ??? Trouble with speech or vision ?? Last Reviewed Date: 2021 ?? 7143-7057 [employer]. All rights reserved. This information is not intended as a substitute for professional medical care. Always follow your healthcare professional's instructions. ?? * Event Display: Stress Nuc with Regadenoson Authored Date: Please click on pdf link to open report * Event Display: NM Myocard Perf SPECT Multi Authored Date: * Event Display: NM Myocard Perf SPECT Multi Authored Date: Myocardial Perfusion Imaging Demographics Patient Name TERRI MOORE Gender Male [employer] Room Number D322 Height 66.1 inches Date of 1945 Weight 163.1 pounds Age 77 year(s) BSA 1.84 m2 Accession Number [id number] BMI 26.22 kg/m2 Date of study 04/07/2022 Resident Referring Physician Kameron Jones MD Interpreting Physician Kasey Ji MD OR Technologist Jorge Noel Procedure Procedure Type: Myocardial Perfusion Imaging:NM Myocardial Perfusion Spect Multi Indications: Chest pain. Risk Factors The patient risk factors include:prior PCI;prior CABG;former tobacco use, hypercholesterolemia, hypertension, family history of premature CAD, diabetes mellitus and prior [place] . Stress Protocols Resting ECG Sinus rhythm. Nonspecific ST-T wave abnormalities. Resting HR:73 bpm Resting BP:114/68 mmHg Pre-stress physical exam: The patient's medications include Insulin, Carvedilol, Lamictal, Amlodipine, Aspirin, Atorvastatin, Plavix, Lisinopril, Isosorbide, Pantoprazole, Baclofen, Colace, Morphine, Oxycodone. Stress Protocol:Pharmacologic - IV Regadenoson Dose: 0.4 mg Peak HR:87 bpm HR response: Not assessed Peak BP:144/70 mmHg (pharmacologic study) Predicted HR: 141 bpm HR recovery: Not Assessed % of predicted HR: 62 (Pharmacologic Study) Test duration: 1 min BP response: Normal resting BP with Reason for termination:Protocol complete appropriate response Functional capacity:Not assessed HR/BP product:[id number] Time of RP Injection:00:50 min Chest pain:No chest pain ST Changes:No significant ST changes Arrhythmias Ventricular Premature Beats, Isolated. Stress Interpretation Pharmacologic study only. Physiologic response not assessed - pharm stress. No EKG evidence of ischemia. Imaging Protocols - One Day Rest Stress Isotope:Tc99m Sestamibi Isotope: Tc99m Sestamibi Isotope dose:10.3 mCi IV Isotope dose:30.4 mCi IV Date:04/07/2022 Date:04/07/2022 Time to Rest Imagin minutes Time to Stress Imagin minutes Technique: Gated Technique: Gated Supine Supine Imaging Results Study artifacts 1) Extracardiac activity 2) Motion Conclusions Summary 1. Myocardial perfusion imaging is abnormal after Regadenoson infusion. There is severe fixed perfusion defect in the left ventricular apex, as well as moderate partially reversible perfusion defects in the apical inferior, apical septal and apical anterior wall, consistent with distal LAD infarct with mild darlyn-infarct ischemia. Mild , fixed perfusion defect of the anteroseptal and inferoseptal wall, also suggestive of mild infarct. 2. LV function is normal with an E.F. of 60 % at rest and 53 % after IV administration of Regadenoson with akinesis of the apex. 3. EKG portion of the stress test is reported separately. Findings communicated with referring provider, via cortxt at the time of the interpretation, 15:48. Signatures * Event Display: Cardiac Rhythm Strips Authored Date: Hospital Progress note * Suzie Marques RN: PERFORM, SIGN, VERIFY Event Display: Progress Note Hospital Authored Date: Patient: OSCAR MURRAY Age: 77 years Sex: Male : 1945 Associated Diagnoses: None Author: Suzie Marques RN Findings Problem Related to Alteration in Cardiac Function (new) : Alteration in Cardiac Function/new 04/07/2022 21:00 EST Alteration in Cardiac Status Related to Chest pain Goals & Outcomes, Cardiac Status Pt will resume/maintain adequate cardiac output, Pt will resume/maintain adequate hemodynamic status, Pt will resume/maintain adequate respiratory function, Pt will maintain adequate GI/ function appropriate for pt, Pt will maintain adequate nutrition status, P t/caregiver will state understanding of diagnosis Cardiac Interventions Implemented Assess/monitor cardiac status, Assess/monitor respiratory status,Ensure adequate caloric intake, Teach/encourage deep breath & cough exercises Goals/Interventions, Cardiac Yes Cardiac, Problem Start 04/07/2022 21:48 Reviewed Plan with, Cardiac Status Patient Patient Progression, Cardiac Status Plan Initiation . Nursing Data Cardiac Data. : Cardiac Data. 04/07/2022 19:00 EST Cardiovascular Symptoms None Cardiac Rhythm First degree heart block, Normal sinus rhythm, PVC Radial Pulse, Left Normal Radial Pulse, Right Normal Dorsalis Pedis Pulse, Left Normal Dorsalis Pedis Pulse, Right Normal Ankle, left None Ankle, right None Pedal, left None Pedal, right None gambling monitor Yes Cardiovascular WNL except . Narrative/Incidental Oscar is alert and oriented x 4. He has no c/o headache or dizziness, chest pain or SOB, nausea or vomiting. He is on a heparin drip that was increased to 16 units after PTT came back at 38.4 @23:41.Upon auscultation he had expiratory wheezing. VSS. On tele is SR/PVC/1st Degree AV Block. Observed resting throughout the night. Call valdes within reach.. * Robert Melo MD: PERFORM Event Display: Progress Note Hospital Authored Date: Patient: ??OSCAR MURRAY ? Age:??77 Years?Sex:??Male?:??1945?? Subjective Overnight events: No significant events overnight. Review of Systems General:??Feels well and slept overnight. Cardiovascular:??Denies any chest pain or palpitations. Pulmonary:??Denies any shortness of breath or cough. GI:??Denies any abdominal pain, nausea, vomiting, diarrhea or constipation. :??Denies any urinary retention. Objective ?? Intake/Output? 04/07 11:28 04/07 07:00 04/06 07:00 04/05 07:00 04/04 07:00 ?? 04/07 17:20 04/07 17:20 04/07 06:59 04/06 06:59 04/05 06:59 Intake ?240 ?0 ?240 ?0 ?0 Output ?300 ?0 ?300 ?0 ?0 Net Total ?-60 ?0 ?-60 ?0 ?0 ? Physical Exam Vital Signs (24 hrs) Last Charted?? Minimum?? Maximum?? Resp Rate?? 18?? 04/07/2022 08:01?? L??13?? 04/06/2022 11:29 ?? 22?? 04/06/2022 19:25?? SBP?? 122?? 04/07/2022 07:50?? 92?? 04/06/2022 15:47 ?? 122?? 04/07/2022 07:18?? DBP?? 60?? 04/07/2022 07:50?? L??48?? 04/06/2022 15:47 ?? 60?? 04/07/2022 07:18? General Appearance: The patient is in NAD. HEENT: Injected right??sclerae. Cardiovascular: RRR S1 and S2 heard with no M/R/G. Respiratory: ??Breath sounds clear to auscultation bilaterally. No wheezing. Good air movement throughout both lungs. GI: Soft. Nontender and nondistended. Normal bowel sounds present throughout abdomen.?? MS: ??No edema or erythema in the lower extremities. Neuro: ??No slurred speech. ??Patient seen moving their upper and lower extremities independently. Psych: Appropriate and pleasant. Lines: Peripheral IV in place.? Results Test Name Test Result Date/TimeHgb 13.6 Gm/dL (Low) 04/07/2022 02:00 EST Platelet Count 128 k/mm3 (Low) 04/07/2022 02:00 EST BUN 24 mg/dL (High) 04/07/2022 13:34 EST BUN 24 mg/dL (High) 04/07/2022 02:00 EST Creatinine-Blood 1.4 mg/dL (High) 04/07/2022 13:34 EST Creatinine-Blood 1.5 mg/dL (High) 04/07/2022 02:00 EST Imaging(s) ?NM Myocard Perf SPECT Multi ?? 04/07/2022 00:00??by Margy Parks MD ?Summary ??1. Myocardial perfusion imaging is abnormal after Regadenoson infusion. ??There is severe fixed perfusion defect in the left ventricular apex, as well ??as moderate partially reversible perfusion defects in the apical inferior, ??apical septal and apical anterior wall, consistent with distal LAD infarct ??with mild darlyn-infarct ischemia. Mild , fixed perfusion defect of the ??anteroseptal and inferoseptal wall, also suggestive of mild infarct. ??2. LV function is normal with an E.F. of 60 % at rest and 53 % after IV ??administration of Regadenoson with akinesis of the apex. ??3. EKG portion of the stress test is reported separately. ? Assessment/Plan OSCAR??NOFAL??is a??77 Years??Male??with coronary artery disease status post CABG, hypertension, hyperlipidemia, type 2 diabetes mellitus, COPD, CKD, ISREAL on CPAP, BPH, history of spinal stenosis, chronic back pain presenting to the emergency department complaints of chest pain with positive nuclearstress test. ?? Acute Issues (active management): CAD status post CABG Chest pain Positive nuclear stress test Initial presentation:??Chest pain on the left chest with pressure sensation??going to his back??which improved with??3??doses of nitroglycerin. ??Pain similar to??his previous??IL episodes.? Troponin x4 negative. ??Normal sinus rhythm with first degree AVB on telemetry. ?? Positive nuclear stress test with severe fixed perfusion??defect in left ventricular apex as well as moderately partially reversible??perfusion defect in the apical??inferior, apical septal, apical anterior wall??consistent with with distal LAD infarct. ?? Plan: ?[facility] cardiology consult ??? Heparin drip started ??? 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 Acute on??CKD 2: Baseline creatinine 1.1 mg/dL.? Elevated from baseline.?? Euvolemic on exam ?? Plan: ?1 L bolus ??? BMP daily ?? Stable Issues: Leukocytosis: Resolved. Thrombocytopenia: Baseline 100- 140K.?? Around baseline.???CBC daily.?? Transfuse less than 10K Metabolic alkalosis: Slightly higher than baseline.???Trend and work-up if continues to uptrend ?? Chronic Issues: Hypertension: Amlodipine, carvedilol, isosorbide mononitrate, lisinopril Vitamin C deficiency: Vitamin C Type 2??Diabetes Mellitus: Hemoglobin A1C (Monitoring) (12/26/21): 7.2%. Home regimen: dapagliflozin. BG over the last 24 hours: 140-164mg/dL. AM Bmg/dL. Assessment:??Stable??Plan:??SSI 3-12 Adjustment disorder: Lamotrigine GERD: Pantoprazole History of of spinal stenosis and chronic back pain: Baclofen as needed, home oxycodone Mild intermittent asthma: Albuterol as needed ?? DVT Prophylaxis:??Heparin gtt (04/07 - ) Diet:??Cardiac Diet: Cardiac, 60 Gm CHO per meal; Fluids: No Fluid Restriction; 2 Gram Sodium Code Status:??Full Resuscitation?? PT ordered?:??No active Physical Therapy Orders.?? Dispo:??Home?? Covid:??Negative??(04/05) * Robert Melo MD: MODIFY, PERFORM Event Display: Progress Note Hospital Authored Date: Patient: ??NOFAL, OSCAR ? Age:??77 Years?Sex:??Male?:??1945?? Subjective Overnight events: He complained of anterior??chest, upper mid abdominal pain going up and down??around his whole abdomen with no??nausea or vomiting. ?? Telemetry: Sinus rhythm with first-degree AV block Review of Systems General:??Feels well and slept overnight. Cardiovascular:??Denies any chest pain or palpitations. Pulmonary:??Denies any shortness of breath or cough. GI:??Denies any abdominal pain, nausea, vomiting, diarrhea or constipation. :??Denies any urinary retention. Objective ?? Intake/Output? No Data Available ? Physical Exam Vital Signs (24 hrs) Last Charted?? Minimum?? Maximum?? Temp?? I have read the above and understand it.?? 04/06/2022 00:39?? I have read the above and understand it.?? 04/06/2022 00:39 ?? I have read the above and understand it.?? 04/06/2022 00:39?? Resp Rate?? 18?? 04/06/2022 08:43?? L??13?? 04/06/2022 08:22 ?? 20?? 04/05/2022 21:32?? SBP?? 122?? 04/06/2022 08:22?? 109?? 04/05/2022 20:31 ?? H??176?? 04/06/2022 01:20?? DBP?? 65?? 04/06/2022 08:22?? 65?? 04/05/2022 20:31 ?? H??88?? 04/06/2022 01:20? General Appearance: The patient is in NAD. HEENT: Injected right sclerae. Cardiovascular: RRR S1 and S2 heard with no M/R/G. Respiratory: ??Breath sounds clear to auscultation bilaterally. No wheezing. Good air movement throughout both lungs. GI: Soft. Nontender and nondistended. Normal bowel sounds present throughout abdomen.?? MS: ??No edema or erythema in the lower extremities. Neuro: ??No slurred speech. ??Patient seen moving their upper and lower extremities independently. Psych: Appropriate and pleasant. Lines: Peripheral IV in place.? Results Test Name Test Result Date/TimeWBC 11.5 k/mm3 (High) 04/06/2022 03:44 EST Platelet Count 124 k/mm3 (Low) 04/06/2022 03:44 EST Bicarbonate Level 30 mmol/L (High) 04/06/2022 03:44 EST Remainder of CBC, electrolytes, BUN, creatinine unremarkable. Assessment/Plan OSCAR??NOFAL??is a??77 Years??Male??with coronary artery disease status post CABG, hypertension, hyperlipidemia, type 2 diabetes mellitus, COPD, CKD, ISREAL on CPAP, BPH, history of spinal stenosis, chronic back pain presenting to the emergency department complaints of chest pain. ?? Acute Issues (active management): CAD status post CABG Chest pain Initial presentation:??Chest pain on the left chest with pressure sensation??going to his back??which improved with??3??doses of nitroglycerin. ??Pain similar to??his previous??IL episodes.? Troponin x4 negative. ??Normal sinus rhythm on telemetry ?? Plan: ?Given??concerning story and medical history, will opt for further risk stratification with pharmacologic stress test as he says that he cannot??run on treadmill ??? 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 Leukocytosis: Slight elevation over upper limit of normal.?? Afebrile throughout hospitalization.??Trend Thrombocytopenia: Baseline 100- 140K.?? Around baseline.???CBC daily.?? Transfuse less than 10K Metabolic alkalosis: Slightly higher than baseline.???Trend and work-up if continues to uptrend CKD 2: Baseline creatinine 1.1 mg/dL.?? Around baseline ?? Chronic Issues: Hypertension: Amlodipine, carvedilol, isosorbide mononitrate, lisinopril Vitamin C deficiency: Vitamin C Type 2??Diabetes Mellitus: Hemoglobin A1C (Monitoring) (12/26/21): 7.2%. Home regimen: dapagliflozin. BG over the last 24 hours: 132-226mg/dL. AM Bmg/dL. Assessment:??Stable??Plan:??Increase SSI 3-12 (from 2-11) Adjustment disorder: Lamotrigine GERD: Pantoprazole History of of spinal stenosis and chronic back pain: Baclofen as needed, home oxycodone Mild intermittent asthma: Albuterol as needed ?? DVT Prophylaxis:??Enoxaparin 40mg?? Diet:??Cardiac Diet: Cardiac, 60 Gm CHO per meal; Fluids: No Fluid Restriction; 2 Gram Sodium Code Status:??Full Resuscitation?? PT ordered?:??No active Physical Therapy Orders.?? Dispo:??Home?? Covid:??Negative??(04/05) CTA Abdominal vessels and Pelvis vessels W contrast IV * [facility]SPowerscribe , CIS S: TRANSCRIBE Leslee RICHARD, [place]: VERIFY Event Display: Result: Authored Date: EXAMINATION: CT Angio Chest, CT Angio Abdomen and Pelvis INDICATION: Hx of Present Illness: CP this AM took 3 nitro himself then when to eye doctor - when home to eat recurrent CP and LUQ and LLQ abd pain; Reason: Other:; Aortic disease, nontraumatic; Clinical Question(s): Other:; AAA; Order Comment: TECHNIQUE: Spiral CTA of the chest, abdomen, and pelvis was performed after rapid IV contrast administration without cardiac gating triggered by an RONDA on the aorta. Images are formatted in multiple planes using 2-D multiplanar and 3-D maximum intensity projection. 100 cc of Omnipaque 300 was administered intravenously. Weight-based protocol using automatic tube modulation was used to optimize exposure parameters. CTDIvol Body: 9.20 mGy, DLP Body: 907 mGy*cm. COMPARISONS: CT abdomen/pelvis dated 11/03/[address] dated 11/01/2020. Correlation is made with MRI abdomen dated 11/06/2021. ANGIOGRAPHIC FINDINGS: No aortic dissection or aneurysm. Normal three vessel arch without branch vessel stenosis. Pulmonary arteries are normal in caliber. No evidence of central pulmonary embolism on this study performed without dedicated technique. Abdominal aorta: Infrarenal abdominal aorta is ectatic measuring 2.8 x 2.9 cm. Celiac axis: Patent. Superior mesenteric artery: Patent. Right renal artery: Patent. Left renal artery: Patent. Inferior mesenteric artery: Patent. Right common iliac artery: Patent. Right internal iliac artery: Patent. Right external iliac artery: Patent. Right common femoral artery: Patent. Visualized right superficial and deep femoral arteries: Patent. Left common iliac artery: Patent. Left internal iliac artery: Patent. Left external iliac artery: Patent. Left common femoral artery: Patent. Visualized left superficial and deep femoral arteries: Patent. NON-ANGIOGRAPHIC FINDINGS: Closing Supervisor View Findings, Lines and Tubes: None. Trachea and Airways: Patent without evidence of tracheal or endobronchial lesion. Mild bronchial wall thickening throughout both lungs. Lungs and Pleura: Unchanged subcentimeter calcified granulomas. The lungs are otherwise clear. No effusion or pneumothorax. Mediastinum and kalpana: No mass or hematoma. No mediastinal or hilar lymphadenopathy. Small type I hiatal hernia. Mild circumferential wall thickening in the distal esophagus. Heart: Heart is normal in size. No pericardial effusion. Moderate coronary artery calcification. There is a stent in the LAD. Chest Wall Soft Tissues: Normal. Diaphragm: No significant abnormality. Liver: Normal. Gallbladder: No CT evidence of gallbladder pathology. Bile ducts: No biliary ductal dilation. Spleen: Normal. Pancreas: Cystic lesions seen on MRI are not clearly visualized. Adrenal glands: 1.1 cm left adrenal nodule was characterized as adenoma on MRI. The right adrenal gland is normal. Kidneys and ureters: No hydronephrosis, stones, or suspicious masses. Bladder: Normal. Reproductive organs: Markedly enlarged prostate gland measures 6.7 x 5.6 cm. Stomach, small bowel, and large bowel: Small type I hiatal hernia. There is a 6.4 cm duodenal diverticulum in the third portion. There is no abnormal bowel distention or wall thickening. There are a few scattered colonic diverticuli without evidence of acute diverticulitis. Duodenal mass seen on MRI is not identified. Appendix: Normal. Peritoneum and retroperitoneum: No ascites or pneumoperitoneum. No omental or mesenteric lesions. Lymph nodes: No enlarged lymph nodes. Abdominal and pelvic wall: Fat-containing bilateral small inguinal hernias.. Bones: No acute abnormality. IMPRESSION: No aortic dissection. Ectatic infrarenal aorta measuring up to 2.9 cm. Recommend follow-up ultrasound or CTA in 10 years per simplified ACR and SVS guidelines. Reference: Chadayton EL et al. J Vasc Surg 2018; 67:2-77. Society for Vascular Surgery 2018 practice guidelines on the care of patients with an abdominal aortic aneurysm. Diffuse bronchial wall thickening suggesting bronchitis. Small type I hiatal hernia and possible mild distal esophagitis. Duodenal mass and cystic pancreatic lesions seen on recent MRI are not visualized. WSN: [id number] Ordering Physician: Nadine Gomez Dictated By: Andre Camilo MD Dictated Date/Time: 04/05/22 11:22 p Reviewed By: Andre Camilo MD Signed By: Andre Camilo MD Signed Date/Time: 04/05/22 11:22 pm Transcribed By: LUCAS Transcribed Date/Time: 04/05/22 11:08 pm CTA Chest vessels W contrast IV * [facility]cribe , CIS S: TRANSCRIBE Andre Camilo MD: VERIFY Event Display: Result: Authored Date: [id number] EXAMINATION: CT Angio Chest, CT Angio Abdomen and Pelvis INDICATION: Hx of Present Illness: CP this AM took 3 nitro himself then when to eye doctor - when home to eat recurrent CP and LUQ and LLQ abd pain; Reason: Other:; Aortic disease, nontraumatic; Clinical Question(s): Other:; AAA; Order Comment: TECHNIQUE: Spiral CTA of the chest, abdomen, and pelvis was performed after rapid IV contrast administration without cardiac gating triggered by an RONDA on the aorta. Images are formatted in multiple planes using 2-D multiplanar and 3-D maximum intensity projection. 100 cc of Omnipaque 300 was administered intravenously. Weight-based protocol using automatic tube modulation was used to optimize exposure parameters. CTDIvol Body: 9.20 mGy, DLP Body: 907 mGy*cm. COMPARISONS: CT abdomen/pelvis dated 11/03/[address] dated 11/01/2020. Correlation is made with MRI abdomen dated 11/06/2021. ANGIOGRAPHIC FINDINGS: No aortic dissection or aneurysm. Normal three vessel arch without branch vessel stenosis. Pulmonary arteries are normal in caliber. No evidence of central pulmonary embolism on this study performed without dedicated technique. Abdominal aorta: Infrarenal abdominal aorta is ectatic measuring 2.8 x 2.9 cm. Celiac axis: Patent. Superior mesenteric artery: Patent. Right renal artery: Patent. Left renal artery: Patent. Inferior mesenteric artery: Patent. Right common iliac artery: Patent. Right internal iliac artery: Patent. Right external iliac artery: Patent. Right common femoral artery: Patent. Visualized right superficial and deep femoral arteries: Patent. Left common iliac artery: Patent. Left internal iliac artery: Patent. Left external iliac artery: Patent. Left common femoral artery: Patent. Visualized left superficial and deep femoral arteries: Patent. NON-ANGIOGRAPHIC FINDINGS: Closing Supervisor View Findings, Lines and Tubes: None. Trachea and Airways: Patent without evidence of tracheal or endobronchial lesion. Mild bronchial wall thickening throughout both lungs. Lungs and Pleura: Unchanged subcentimeter calcified granulomas. The lungs are otherwise clear. No effusion or pneumothorax. Mediastinum and kalpana: No mass or hematoma. No mediastinal or hilar lymphadenopathy. Small type I hiatal hernia. Mild circumferential wall thickening in the distal esophagus. Heart: Heart is normal in size. No pericardial effusion. Moderate coronary artery calcification. There is a stent in the LAD. Chest Wall Soft Tissues: Normal. Diaphragm: No significant abnormality. Liver: Normal. Gallbladder: No CT evidence of gallbladder pathology. Bile ducts: No biliary ductal dilation. Spleen: Normal. Pancreas: Cystic lesions seen on MRI are not clearly visualized. Adrenal glands: 1.1 cm left adrenal nodule was characterized as adenoma on MRI. The right adrenal gland is normal. Kidneys and ureters: No hydronephrosis, stones, or suspicious masses. Bladder: Normal. Reproductive organs: Markedly enlarged prostate gland measures 6.7 x 5.6 cm. Stomach, small bowel, and large bowel: Small type I hiatal hernia. There is a 6.4 cm duodenal diverticulum in the third portion. There is no abnormal bowel distention or wall thickening. There are a few scattered colonic diverticuli without evidence of acute diverticulitis. Duodenal mass seen on MRI is not identified. Appendix: Normal. Peritoneum and retroperitoneum: No ascites or pneumoperitoneum. No omental or mesenteric lesions. Lymph nodes: No enlarged lymph nodes. Abdominal and pelvic wall: Fat-containing bilateral small inguinal hernias.. Bones: No acute abnormality. IMPRESSION: No aortic dissection. Ectatic infrarenal aorta measuring up to 2.9 cm. Recommend follow-up ultrasound or CTA in 10 years per simplified ACR and SVS guidelines. Reference: Chadayton EL et al. J Vasc Surg 2018; 67:2-77. Society for Vascular Surgery 2018 practice guidelines on the care of patients with an abdominal aortic aneurysm. Diffuse bronchial wall thickening suggesting bronchitis. Small type I hiatal hernia and possible mild distal esophagitis. Duodenal mass and cystic pancreatic lesions seen on recent MRI are not visualized. WSN: [id number] Ordering Physician: Nadine Gomez Dictated By: Andre Camilo MD Dictated Date/Time: 04/05/22 11:22 p Reviewed By: Andre Camilo MD Signed By: Andre Camilo MD Signed Date/Time: 04/05/22 11:22 pm Transcribed By: LUCAS Transcribed Date/Time: 04/05/22 11:08 pm Patient Care team information Care Team Personnel Name: Jose Castillona Position: [facility] RN Supv Member Role: Primary Care Nurse Name: Leticia Foster NP Position: [facility] PCO Associate Professional Member Role: PCP Address: Address: [address] [place] [id number] [place] Name: Namita Barajas RN Position: [facility] RN Member Role: Primary Care Nurse Name: Tasha Back RN Position: S RN Member Role: Primary Care Nurse Name: Jenny Bustillos RN Position: S RN Member Role: Primary Care Nurse Name: Margarita Serrano RN Position: [facility] RN Member Role: Primary Care Nurse Name: Devin Benites RN Position: [facility] RN Member Role: Primary Care Nurse Name: Betsy Millan RN Position: [facility] RN Member Role: Primary Care Nurse Name: Peggy Jansen RN Position: [facility] RN Member Role: Primary Care Nurse Name: aCte Pabon RN Position: [facility] PCO RN Member Role: Primary Care Nurse Name: Marian Rahman RN Position: [facility] RN Member Role: Primary Care Nurse Name: Janette Jones RN Position: [facility] RN Member Role: Primary Care Nurse Name: Vianney Mcneill RN Position: [facility] RN Member Role: Primary Care Nurse Name: Cindy Evans LPN Position: [facility] RN Member Role: Primary Care Nurse Name: Mary BRADLEY Attending Position: [facility] ED Medicine MD Name: Nadine Marrufo Position: [facility] Associate Professional Member Role: ED Physician Production Estimator Address: Address: [address] [place] [address] [place] Name: Tommy Mandujano RN Position: [facility] ED RN W/OE and Tasks Member Role: Patient Care Provider Care Team Related Persons Name: INGE MURRAY Address: [address] [place] [address] Name: NIK BARTON Address: [place] [address]
--- OUTSIDE RECORDS SUMMARY | 2022-12-09 11:29 | XMS_ITS | Continuity of Care Document ---
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 Name Role Phone Kilo Smith MD Primary Care Physician [phone] [place] [facility] [place]): [place]16/20 [facility] Adult [address] [place] [address]- [facility] Encounter Diagnosis Failed back syndrome(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) - 03/06/20 care home current use of opiate analgesic(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) - 03/06/20 Diabetes mellitus with renal manifestation(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) - 03/06/20 DM (diabetes mellitus), type 2 with peripheral vascular complications(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) - 03/06/20 Arteriosclerotic heart disease (ASHD)(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) - 03/06/20 Benign Essential Hypertension(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) - 03/06/20 Essential familial hyperlipidemia(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) - 03/06/20 Chronic renal disease, stage 3, moderately decreased glomerular filtration rate between 30-59 mL/min/1.73 square meter(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) - 03/06/20 H/O lumbar discectomy 1997(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) - 03/06/20 Attending Physician: Kilo Smith MD Allergies, Adverse [...] VIS 2Admin Note: VIS-GIVEN 3Result Comment: [02/28/2017] [facility]: [id number] [facility] 5Admin Note: VIS 12/18/2010 6Admin Note: VIS given 01/02/10 7Admin Note: vis 03/03 8Result Comment: error 9Admin Note: hep A #1 10Admin Note: vis 01/01 11Admin Note: VIS 12Admin Note: vis-given Medications amLODIPine 5 mg oral tablet 5 mg, 1, tablet, By Mouth, Daily, # 90 tablet, Refills 0, Tot. Refills 0, Maintenance, 03/06/20 15:55:00 EDT, Route to Pharmacy Electronically, [facility], 168, cm, 12/06/19 13:53:00 EDT, Height [...] 5 Refills, Maintenance, 10/06/19 15:53:00 EDT, Tablet, [facility] [address] 168, cm, 08/16/19 15:58:00 EDT, Height Start Date: 10/06/19 Stop Date: 04/03/20 Status: Ordered Flonase 50 mcg/inh nasal spray 1 sprays, Nares, Both, 2 times a day, # 1 each, 3 Refills, Maintenance, 05/07/16 9:37:51, [place], 1 sprays Nares, Both 2 times a [...] 01/25/20 10:28:00 EDT, Route to Pharmacy Electronically, [facility], 168, cm, 12/06/19 13:53:00 EDT, Height Start Date: 01/25/20 Status: Ordered lamotrigine 25 mg oral tablet 25 mg, 1, tablet, By Mouth, 2 times a day, # 60 tablet, Refills 5, Tot. Refills 5, Maintenance, 02/23/20 16:55:00 EDT, Route to Pharmacy Electronically, [facility] 168, cm, 12/06/19 13:53:00 EDT, Height Start Date: 02/23/20 Stop Date: 08/21/20 Status: Ordered lisinopril 20 mg oral tablet 40 mg, 2, tablet, By Mouth, Daily, new dose, # 180 tablet, Refills 1, Tot. Refills 1, Maintenance, 09/08/19 15:55:00 EDT, Route to Pharmacy Electronically, [facility], new dose, 168, cm, 08/16/19 15:58:00 EDT, Height Start Date: 06/13/17 Stop Date: 03/06/20 Status: Ordered loratadine 10 mg oral tablet 10 mg, 1, tablet, By Mouth, Daily, for seasonal allergies, # 30 tablet, Refills 2, Tot. Refills 2, Maintenance, 10/17/16 11:37:04, Route to Pharmacy Electronically, [id number], [facility]. Start Date: 10/17/16 Status: Ordered metFORMIN 1000 mg oral tablet 1 tablet = 1,000 mg, By Mouth, 2 times a day, with meals, # 180 tablet, 1 Refills, Maintenance, 02/23/20 18:15:00 EDT, Tablet, [facility] 168, cm, 12/06/19 13:53:00 EDT, Height Start Date: 02/23/20 Stop Date: 08/21/20 Status: Ordered metFORMIN 1000 mg oral tablet 1 tablet = 1,000 mg, By Mouth, 2 times a day, with meals, # 180 tablet, 1 Refills, Maintenance, 03/06/20 15:49:00 EDT, Tablet, [facility] 168, cm, 12/06/19 13:53:00 EDT, Height Start [...] see pharamcy note, 06/13/17 11:20:27, Narcan Nasal [place]: 4 mg (contents of 1 nasal spray): Narcan Nasal [place]: 4 mg (contents of 1 nasal spray), [...] Refills, Maintenance, 09/08/19 15:55:00 EDT, EC Capsule, [facility], 168, cm, 08/16/19 15:58:00 EDT, Height [...] 0 Refills, Maintenance, 03/14/20 20:18:00 EDT, Tablet, [id number], 03/22/20, 168, cm, 03/09/20 9:08:00 EDT, Height [...] Hx of adenomatous colonic polyps(Confirmed) 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 [place] 4, 22had surgery 2011 23sx pending 24had sx 25seeing ENT 26surgery 1991 27MRI 2006 28possible ITP 29monitor 30Tubular adenoma 2014 Diagnosis Diagnosis Type Effective Dates Health Status Clinical Service Informant Failed back syndrome 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 03/06/20 care home current use of opiate analgesic 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 03/06/20 Diabetes mellitus with renal manifestation 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 03/06/20 DM (diabetes mellitus), type 2 with peripheral vascular complications 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 03/06/20 Arteriosclerotic heart disease (ASHD) 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 03/06/20 Benign Essential Hypertension 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 03/06/20 Essential familial hyperlipidemia 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 03/06/20 Chronic renal disease, stage 3, moderately decreased glomerular filtration rate between 30-59 mL/min/1.73 square meter 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 03/06/20 H/O lumbar discectomy 1997 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 03/06/20 Vital Signs Most recent to oldest [Reference Range]: 1 Height 168 cm (03/09/20 9:08 AM) Weight 70.3 kg (03/09/20 9:08 AM) Oxygen Saturation [94-100 %] 98 % (03/09/20 9:08 AM) Pulse Rate [55-90 bpm] 78 bpm (03/09/20 9:08 AM) Body Mass Index [18.5-24.99] 24.91 (03/09/20 9:08 AM) Blood Pressure [90-138/55-84 mm Hg] 138/ 76mm Hg (03/09/20 9:08 AM) Respiratory Rate [16-30 br/min] 16 br/mi n (03/09/20 9:08 AM) Temperature [96.8-100.4 DegF] 98.8 DegF (03/09/20 9:08 AM) Blood pressure sites Arm, left (03/09/20 9:08 AM) Temperature Route Oral (03/09/20 9:08 AM) Social History Social History Type Response Smoking Status Former smoker; Tobac co use times per day: smoked < 1/2 PPD; Started at age: 18; Stopped at age: 65; entered on: 12/23/13 Sex
--- OUTSIDE RECORDS SUMMARY | 2022-12-09 11:29 | XMS_ITS | Continuity of Care Document ---
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 Name Role Phone Luis RICHARD, Kilo Pendleton Primary Care Physician [phone] Encounter [facility] Date(s): 12/27/21 - 01/26/22 [facility] Adult [address] [place] [address]- Allergies, Adverse Reactions, Alerts Substance Reaction Severity Status Duloxetine 1 rash Active 1GI Immunizations Given and Recorded Vaccine Date Status Refusal Reason SARS-CoV-2 mRNA (hcgomar-lalz-cyobd) vax 1 06/29/21 Given influenza virus vaccine, [...] Vaccine (oldterm) 14 03/11/06 Given 1Result Comment: [facility]-[id number] 2Result Comment: [facility]: [id number] 3Result Comment: [02/28/2017] [facility]: [id number] 4[facility] 5Admin Note: VIS 12/18/2010 [...] 0 Refills, Maintenance, 07/17/21 12:08:00 EST, Tablet, [facility] #[id number], Partial fill upon patient request if the [...] tablet, 1 Refills, Maintenance, 01/22/22 12:14:00 EDT, [facility] #[id number], 168, cm, 12/26/21 15:45:00 EDT, Height, 88.5, kg, 11/04/21 16:51:00 EDT, Dry Weight Start Date: 01/22/22 Status: Ordered baclofen 10 mg oral tablet 0.5, tablet, By Mouth, 3 times a day, # 45 tablet, Refills 0, Tot. Refills 0, 08/14/21 13:16:00 EDT, Route to Pharmacy Electronically, [facility] #[id number], 168, cm, 08/01/21 9:15:00 EST, Height, 72.7, kg, 10/12/20 9:18:00 EDT, Dry Weight Start Date: 08/14/21 Status: Ordered clopidogrel 75 mg oral tablet 75 mg, 1, tablet, By Mouth, Daily, Continue medication through 09/2021 unless otherwise instructed.,# 90 tablet, Refills 3, Tot. Refills 3, Maintenance, 12/28/20 9:56:00 EDT, Route to Pharmacy Electronically, [facility] #[id number], Partial fill... Start Date: 12/28/20 Status: Ordered Coreg 3.125 mg oral tablet 3.125 mg, 1, tablet, By Mouth, 2 times a day, # 60 tablet, Refills 11, Tot. Refills 11, Maintenance, 08/01/21 9:34:00 EST, Route to Pharmacy Electronically, [facility] #[id number], Partial fill upon patient request if the prescription is for a sc... Start Date: 08/01/21 Stop Date: 07/27/22 Status: Ordered docusate sodium 100 mg oral capsule 100 mg, 1, capsule, By Mouth, 2 times a day, # 60 capsule, Refills 6, Tot. Refills 6, Maintenance, 01/03/21 8:19:00 EDT, Route to Pharmacy Electronically, [facility] #[id number], Partial fill upon patient request if the prescription is for a sche... Start Date: 01/03/21 Status: Ordered ezetimibe 10 mg oral tablet 1 tablet = 10 mg, By Mouth, Daily, take with atorvastatin, # 30 tablet, 11 Refills, Maintenance, 11/15/21 14:23:00 EDT, Tablet, [facility] #[id number], Partial fill upon patient request if the prescription is for a schedule II opioid drug., 168,... Start Date: 11/15/21 Status: Ordered Farxiga 10 mg oral tablet 1 tablet = 10 mg, By Mouth, Daily, Increased strength, # 30 tablet, 0 Refills, Maintenance, 01/16/22 9:53:00 EDT, Tablet, [facility] #[id number], Increased strength, 168, cm, 12/26/21 15:45:00 EDT, [...] 11 Refills, Maintenance, 12/04/20 9:56:00 EDT, Powder, [facility] #[id number], Partial fill upon patient request if the prescription i... Start Date: 12/04/20 Status: Ordered isosorbide mononitrate 30 mg oral tablet, extended release 1 tablet, By Mouth, Daily in AM, # 30 tablet, 0 Refills, [facility] #[id number], 168, cm, 01/10/21 10:40:00 EDT, Height, 72.7, kg, 10/12/20 9:18:00 EDT, Dry Weight Start Date: 01/28/21 Status: Ordered lamotrigine 25 mg oral tablet 25 mg, 1, tablet, By Mouth, 2 times a day, # 180 tablet, Refills 1, Tot. Refills 1, Maintenance, 01/22/22 12:14:00 EDT, Route to Pharmacy Electronically, [facility] #[id number], 168, cm, 12/26/21 15:45:00 EDT, Height, 88.5, [...] 02/21/21 16:10:00 EDT, Route to Pharmacy Electronically, [facility] #[id number], Partial fill upon patient request if the prescription is for a schedule II opi... Start Date: 02/21/21 Status: Ordered nitroglycerin 0.3 mg sublingual tablet 1 tablet = 0.3 mg, Sublingual, Every 5 minutes, PRN as needed for chest pain, not to exceed 3 doses/15 min--if pain persists, seek medical attention, # 100 tablet, 0 Refills, Maintenance, 12/04/20 10:05:00 EDT, Tablet, [facility] #[id number], Par... Start Date: 12/04/20 Status: Ordered omeprazole 20 mg oral enteric coated capsule 1 capsule = 20 mg, By Mouth, Daily, before breakfast, # 90 capsule, 0 Refills, Maintenance, 11/15/21 14:21:00 EDT, EC Capsule, [facility] #[id number], 168, cm, 11/15/21 12:59:00 EDT, Height, 88.5, kg, 11/04/21 16:51:00 EDT, Dry Weight Start Date: 11/15/21 Stop Date: 02/13/22 Status: Ordered oxyCODONE 10 mg oral tablet 1 tablet = 10 mg, By Mouth, Every 4 hours, PRN as needed for pain, chronic back pain, # 168 tablet,0 Refills, Maintenance, 01/01/22 9:45:00 EDT, Tablet, [facility] #[id number], Partial fill upon patient request if the prescription is for a sched... 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 [place] 4, 22had surgery 2011 23sx pending 24had sx 25seeing ENT 26surgery 1991 27MRI 2006 28possible ITP 29monitor 30Tubular adenoma 2015 Social History Social History Type Response Smoking Status Former smoker; Tobac co use times per day: smoked < 1/2 PPD; Started at age: 18; Stopped at age: 65; entered on: 12/23/13 Sex Care Team Personnel Name: Luis RICHARD, Kilo Pendleton Address: [address] [place] [address] Adult [place], [place] [address]
--- OUTSIDE RECORDS SUMMARY | 2022-12-09 11:29 | XMS_ITS | Continuity of Care Document ---
Author Name Unknown Organization [facility] Alessandro [facility] [place] lt Address [address] [place] [address]- Care Team Providers Care Obstetrical Anesthesiologist Name Role Phone Luis RICHARD, Kilo Pendleton Primary Care Physician [phone] Encounter [facility] Date(s): 04/27/21 - 05/27/21 [facility] Adult [address] [place] [address]- Allergies, Adverse Reactions, Alerts Substance Reaction Severity [...] Vaccine (oldterm) 13 03/11/06 Given 1Result Comment: [facility]: [id number] 2Result Comment: [02/28/2017] HD [facility]: [id number] 3[facility] 4Admin Note: VIS 12/18/2010 [...] tablet, 3 Refills, Maintenance, 02/05/21 8:58:00 EDT, [facility] #[id number], 168, cm, 01/30/21 11:10:00 EDT, Height, 72.7, kg, 10/12/20 9:18:00 EDT, Dry Weight Start Date: 02/05/21 Status: Ordered baclofen 10 mg oral tablet 0.5, tablet, By Mouth, 3 times a day, # 45 tablet, Refills 0, Tot. Refills 0, 05/02/21 13:13:00 EST, Route to Pharmacy Electronically, [email or web address] #[id number], 168, cm, 03/19/21 15:01:00 EDT, Height, 72.7, kg, 10/12/20 9:18:00 EDT, Dry Weight Start Date: 05/02/21 Status: Ordered clopidogrel 75 mg oral tablet 75 mg, 1, tablet, By Mouth, Daily, Continue medication through 09/2021 unless otherwise instructed.,# 90 tablet, Refills 3, Tot. Refills 3, Maintenance, 12/28/20 9:56:00 EDT, Route to Pharmacy Electronically, [email or web address] #[id number], Partial fill... Start Date: 12/28/20 Status: Ordered docusate sodium 100 mg oral capsule 100 mg, 1, capsule, By Mouth, 2 times a day, # 60 capsule, Refills 6, Tot. Refills 6, Maintenance, 01/03/21 8:19:00 EDT, Route to Pharmacy Electronically, [email or web address] #[id number], Partial fill upon patient request if the prescription is for a sche... Start Date: 01/03/21 Status: Ordered ezetimibe 10 mg oral tablet 1 tablet = 10 mg, By Mouth, Daily, take with atorvastatin, # 30 tablet, 11 Refills, Maintenance, 12/03/20 16:45:00 EDT, Tablet, [email or web address] #[id number], Partial fill upon patient request if the [...] 11 Refills, Maintenance, 12/04/20 9:56:00 EDT, Powder, [email or web address] #[id number], Partial fill upon patient request if the prescription i... Start Date: 12/04/20 Status: Ordered isosorbide mononitrate 30 mg oral tablet, extended release 1 tablet, By Mouth, Daily in AM, # 30 tablet, 0 Refills, [email or web address] #[id number], 168, cm, 01/10/21 10:40:00 EDT, Height, 72.7, kg, 10/12/20 9:18:00 EDT, Dry Weight Start Date: 01/28/21 Status: Ordered lamotrigine 25 mg oral tablet 25 mg, 1, tablet, By Mouth, 2 times a day, # 180 tablet, Refills 1, Tot. Refills 1, Maintenance, 10/30/20 8:19:00 EDT, Route to Pharmacy Electronically, [facility] #[id number], 168, cm, 216:43:00 EDT, Height, 72.7, kg, [...] 02/21/21 16:10:00 EDT, Route to Pharmacy Electronically, [email or web address] #[id number], Partial fill upon patient request if the prescription is for a schedule II opi... Start Date: 02/21/21 Status: Ordered metFORMIN 1000 mg oral tablet 1 tablet = 1,000 mg, By Mouth, 2 times a day, with meals, # 180 tablet, 1 Refills, Maintenance, 12/27/20 13:44:00 EDT, Tablet, [email or web address] #[id number], 168, cm, 12/01/20 9:19:00 EDT, Height, 72.7, kg, 10/12/20 9:18:00 EDT, Dry Weight Start Date: 12/27/20 Stop Date: 06/25/21 Status: Ordered metoprolol 25 mg oral tablet, extended release 12.5 mg, 0.5, tablet, By Mouth, Daily, # 30 tablet, Refills 2, Tot. Refills 2, Maintenance, 01/10/21 11:01:00 EDT, Route to Pharmacy Electronically, [email or web address] #[id number], Partial fill upon patient request if the prescription is for a schedule I... Start Date: 01/10/21 Status: Ordered nitroglycerin 0.3 mg sublingual tablet 1 tablet = 0.3 mg, Sublingual, Every 5 minutes, PRN as needed for chest pain, not to exceed 3 doses/15 min--if pain persists, seek medical attention, # 100 tablet, 0 Refills, Maintenance, 12/04/20 10:05:00 EDT, Tablet, [facility] #[id number], Par... Start Date: 12/04/20 Status: Ordered omeprazole 20 mg oral enteric coated capsule 1 capsule = 20 mg, By Mouth, Daily, before breakfast, # 90 capsule, 0 Refills, Maintenance, 02/13/21 15:28:00 EDT, EC Capsule, [facility] #[id number], 168, cm, 02/05/21 14:18:00 EDT, Height, 72.7, kg, 10/12/20 9:18:00 EDT, Dry Weight Start Date: 02/13/21 Stop Date: 05/14/21 Status: Ordered oxyCODONE 10 mg oral tablet 1 tablet = 10 mg, By Mouth, Every 4 hours, PRN as needed for pain, chronic back pain, # 168 tablet,0 Refills, Maintenance, 05/23/21 11:22:00 EST, Tablet, [email or web address] #[id number], Partial fill upon patient request if the prescription is for a sche... Start Date: 05/23/21 Status: Ordered Vitamin C 500 mg oral [...] cath September 2020 ef 35%(Confirmed) 10/20/20 Active shelter current use of opi 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 [place] 4, 22had surgery 2011 23sx pending 24had sx 25seeing ENT 26surgery 1991 27MRI 2006 28possible ITP 29monitor 30Tubular adenoma 2014 Social History Social History Type Response Smoking Status Former smoker; Tobac co use times per day: smoked < 1/2 PPD; Started at age: 18; Stopped at age: 65; entered on: 12/23/13 Sex
--- OUTSIDE RECORDS SUMMARY | 2022-12-09 11:30 | XMS_ITS | Continuity of Care Document ---
Author Name Unknown Organization [facility] Address [address] [place] [address] [address] [place] [address]- Care Team Providers Care Mint Wafer Depositor Name Role Phone Luis RICHARD, Kilo Pendleton Primary Care Physician [facility] Date(s): 07/17/20 - 08/16/20 [facility] [address] [place], [place] [address] Attending Physician: Mitesh Lopez Admitting Physician: AdmMitesh muller Referring Physician: Admtr ArJuliocesar Allergies, Adverse Reactions, Alerts Substance Reaction Severity [...] VIS 2Admin Note: VIS-GIVEN 3Result Comment: [02/28/2017] [facility]: [id number] 4[facility] History: [facility] 5Admin Note: VIS 12/18/2010 [...] Pharmacy Electronically, [facility], 168, cm, 12/06/19 13:53:00 EDT, Height Start [...] Daily in AM, # 30 tablet, Refills 2, Tot. Refills 2, Maintenance, 07/18/20 14:07:00 EST, [id number], 168, cm, 07/17/20 14:04:00 EST, Height Start Date: 07/18/20 Status: Ordered lamotrigine 25 mg oral tablet 25 mg, 1, tablet, By Mouth, 2 times a day, # 180 tablet, Refills 1, Tot. Refills 1, Maintenance, 08/21/20 16:55:00 EDT, [facility][id number], 168, cm, 04/18/20 10:07:00 EST, Height Start Date: 08/21/20 Stop Date: 02/17/21 Status: Ordered lamotrigine 25 mg oral tablet 25 mg, 1, tablet, By Mouth, 2 times a day, for 30 days, # 60 tablet, Refills 5, Tot. Refills 5, Hard Stop 08/21/20 16:55:00 EDT, 02/23/20 16:55:00 EDT, Route to Pharmacy Electronically, [facility], 168, cm, 12/06/19 13:53:00 EDT, Height Start Date: 02/23/20 Stop Date: 08/21/20 Status: Ordered lisinopril 20 mg oral tablet 40 mg, 2, tablet, By Mouth, Daily, new dose, # 180 tablet, Refills 1, Tot. Refills 1, Maintenance, 09/08/19 15:55:00 EDT, Route to Pharmacy Electronically, [facility], new dose, 168, cm, 08/16/19 15:58:00 EDT, Height Start Date: 06/13/17 Stop Date: 03/06/20 Status: Ordered metFORMIN 1000 mg oral tablet 1 tablet = 1,000 mg, By Mouth, 2 times a day, with meals, # 180 tablet, 1 Refills, Maintenance, 03/06/20 15:49:00 EDT, Tablet, [facility] 168, cm, 12/06/19 13:53:00 EDT, Height Start [...] Maintenance, 09/08/19 15:55:00 EDT, EC Capsule, [facility] 168, cm, 08/16/19 15:58:00 EDT, Height Start Date: 09/08/19 Stop Date: 03/06/20 Status: Ordered One Touch Ultra Test Strips See Instructions, # 1 box, Refills 11, Tot. Refills 11, Maintenance, test tid diabetes, 11/13/12 11:29:19 Start Date: 11/13/12 Status: Ordered oxyCODONE 10 mg oral tablet 1 tablet = 10 mg, By Mouth, Every 4 hours, # 168 tablet, 0 Refills, Maintenance, 08/01/20 7:38:00 EST, Tablet, [email or web address] #[id number], 08/09/20, 168, cm, 07/17/20 14:04:00 EST, Height Start Date: 08/01/20 Status: Ordered Vitamin C By Mouth, Daily, [...] polyps(Confirmed) 18 Active Inguinal hernia left(Confirmed) Active detention current use of opi ate [...] week 19care ploan reviewed 20comm 2 21PHQ9;2. [place] 4, 22had surgery 2011 23sx pending 24had sx 25seeing ENT 26surgery 1991 27MRI 2006 28possible ITP 29monitor 30Tubular adenoma 2015 Social History Social History Type Response Smoking Status Former smoker; Tobac co use times per day: smoked < 1/2 PPD; Started at age: 18; Stopped at age: 65; entered on: 12/23/13 Sex
--- OUTSIDE RECORDS SUMMARY | 2022-12-09 11:30 | XMS_ITS | Continuity of Care Document ---
Author Name Unknown Organization [facility] Mumtaz jennifer Address [address] [address]- Care Team Providers Care Central Supply Nurse Name Role Phone Luis RICHARD, Kilo Pendleton Primary Care Physician [phone] Encounter [facility] Date(s): 11/23/20 - 12/23/20 [facility] [address] [facility] Room [address] [place] [address]- Attending Physician: Admrenzo, Mitesh Admitting Physician: AdmtrMitesh Referring Physician: Admtr, Ar8 [...] 2Admin Note: VIS-GIVEN 3Result Comment: [02/28/2017] [facility]: [id number] 4[facility] History[facility] 5Admin Note: VIS 12/18/2010 [...] 11 Refills, Maintenance, 12/03/20 16:45:00 EDT, Tablet, [id number], Partial fill upon patient request if the [...] Maintenance, DX: STROKE I63.9 LIFETIME NEED fax: [phone], 12/05/20 16:06:00 EDT, Supply Start Date: 12/05/20 Status: Ordered [facility] Ellipta 62.5 mcg/inh inhalation powder 1 each, Inhalation, Every 24 hours, doses should be taken at least 24 hours apart repaces spitriva,# 30 each, 11 Refills, Maintenance, 12/04/20 9:56:00 EDT, Powder, [facility] #[id number], Partial fill upon patient request if the [...] 10/30/20 8:19:00 EDT, Route to Pharmacy Electronically, [facility] #[id number], 168, cm, 216:43:00 EDT, Height, 72.7, kg, [...] 1 Refills, Maintenance, 03/06/20 15:49:00 EDT, Tablet, [facility], 168, cm, 12/06/19 13:53:00 EDT, Height Start Date: 03/06/20 Stop Date: 09/02/20 Status: Ordered nitroglycerin 0.3 mg sublingual tablet 1 tablet = 0.3 mg, Sublingual, Every 5 minutes, PRN as needed for chest pain, not to exceed 3 doses/15 min--if pain persists, seek medical attention, # 100 tablet, 0 Refills, Maintenance, 12/04/20 10:05:00 EDT, Tablet, [facility] #[id number], Par... 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 [place] 4, 22had surgery 2011 23sx pending 24had sx 25seeing ENT 26surgery 1991 27MRI 2006 28possible ITP 29monitor 30Tubular adenoma 2014 Social History Social History Type Response Smoking Status Former smoker; Tobac co use times per day: smoked < 1/2 PPD; Started at age: 18; Stopped at age: 65; entered on: 12/23/13 Sex
--- OUTSIDE RECORDS SUMMARY | 2022-12-09 11:30 | XMS_ITS | Continuity of Care Document ---
Author Name Unknown Organization [facility] [place] lt Address [address] [place] [address]- Care Team Providers Care Records Manager Name Role Phone Luis RICHARD, Kilo Pendleton Primary Care Physician [facility] Date[facility]s): 02/05/21 - 03/07/21 [facility] [place] Adult [address] [place] [address]- Allergies, Adverse Reactions, Alerts Substance Reaction Severity [...] VIS 2Admin Note: VIS-GIVEN 3Result Comment: [02/28/2017] [facility]: [id number] 4[facility] History[facility] 5Admin Note: VIS 12/18/2010 [...] tablet, 3 Refills, Maintenance, 02/05/21 8:58:00 EDT, [facility] #[id number], 168, cm, 01/30/21 11:10:00 EDT, Height, 72.7, [...] 2 Refills, Maintenance, 01/03/21 8:18:00 EDT, Tablet, [facility] #[id number], Partial fill upon patient request if the [...] 12/28/20 9:56:00 EDT, Route to Pharmacy Electronically, [facility] #[id number], Partial fill... Start Date: 12/28/20 Status: Ordered docusate sodium 100 mg oral capsule 100 mg, 1, capsule, By Mouth, 2 times a day, # 60 capsule, Refills 6, Tot. Refills 6, Maintenance, 01/03/21 8:19:00 EDT, Route to Pharmacy Electronically, [facility] #[id number], Partial fill upon patient request if the prescription is for a sche... Start Date: 01/03/21 Status: Ordered ezetimibe 10 mg oral tablet 1 tablet = 10 mg, By Mouth, Daily, take with atorvastatin, # 30 tablet, 11 Refills, Maintenance, 12/03/20 16:45:00 EDT, Tablet, [facility] #[id number], Partial fill upon patient request if the [...] Maintenance, DX: STROKE I63.9 LIFETIME NEED fax: [phone], 12/05/20 16:06:00 EDT, Supply Start Date: 12/05/20 Status: Ordered Incruse Ellipta 62.5 mcg/inh inhalation powder 1 each, Inhalation, Every 24 hours, doses should be taken at least 24 hours apart repaces spitriva,# 30 each, 11 Refills, Maintenance, 12/04/20 9:56:00 EDT, Powder, [facility] #[id number], Partial fill upon patient request if the prescription i... Start Date: 12/04/20 Status: Ordered isosorbide mononitrate 30 mg oral tablet, extended release 1 tablet, By Mouth, Daily in AM, # 30 tablet, 0 Refills, [facility] #[id number], 168, cm, 01/10/21 10:40:00 EDT, Height, 72.7, kg, 10/12/20 9:18:00 EDT, Dry Weight Start Date: 01/28/21 Status: Ordered isosorbide mononitrate 30 mg oral tablet, extended release 1 tablet, By Mouth, Daily in AM, # 30 tablet, 0 Refills, [facility] #[id number], 168, cm, 01/10/21 10:40:00 EDT, Height, 72.7, kg, 10/12/20 9:18:00 EDT, Dry Weight Start Date: 01/28/21 Status: Ordered lamotrigine 25 mg oral tablet 25 mg, 1, tablet, By Mouth, 2 times a day, # 180 tablet, Refills 1, Tot. Refills 1, Maintenance, 10/30/20 8:19:00 EDT, Route to Pharmacy Electronically, [facility] #[id number], 168, cm, :43:00 EDT, Height, 72.7, kg, [...] 02/21/21 16:10:00 EDT, Route to Pharmacy Electronically, [facility] #[id number], Partial fill upon patient request if the prescription is for a schedule II opi... Start Date: 02/21/21 Status: Ordered metFORMIN 1000 mg oral tablet 1 tablet = 1,000 mg, By Mouth, 2 times a day, with meals, # 180 tablet, 1 Refills, Maintenance, 12/27/20 13:44:00 EDT, Tablet, [facility] #65157, 168, cm, 12/01/20 9:19:00 EDT, Height, 72.7, kg, 10/12/20 9:18:00 EDT, Dry Weight Start Date: 12/27/20 Stop Date: 06/25/21 Status: Ordered metoprolol 25 mg oral tablet, extended release 12.5 mg, 0.5, tablet, By Mouth, Daily, # 30 tablet, Refills 2, Tot. Refills 2, Maintenance, 01/10/21 11:01:00 EDT, Route to Pharmacy Electronically, [facility] #[id number], Partial fill upon patient request if the prescription is for a schedule I... Start Date: 01/10/21 Status: Ordered nitroglycerin 0.3 mg sublingual tablet 1 tablet = 0.3 mg, Sublingual, Every 5 minutes, PRN as needed for chest pain, not to exceed 3 doses/15 min--if pain persists, seek medical attention, # 100 tablet, 0 Refills, Maintenance, 12/04/20 10:05:00 EDT, Tablet, [facility] #[id number], Par... Start Date: 12/04/20 Status: Ordered omeprazole 20 mg oral enteric coated capsule 1 capsule = 20 mg, By Mouth, Daily, before breakfast, # 90 capsule, 0 Refills, Maintenance, 02/13/21 15:28:00 EDT, EC Capsule, [facility] #[id number], 168, cm, 02/05/21 14:18:00 EDT, Height, 72.7, kg, 10/12/20 9:18:00 EDT, Dry Weight Start Date: 02/13/21 Stop Date: 05/14/21 Status: Ordered oxyCODONE 10 mg oral tablet 1 tablet = 10 mg, By Mouth, Every 4 hours, PRN as needed for pain, chronic back pain, # 168 tablet,0 Refills, Maintenance, 03/05/21 11:41:00 EDT, Tablet, [facility] #[id number], Partial fill upon patient request if the [...] Maintenance, DX: STROKE I63.9 LIFETIME NEED fax: [phone], 12/05/20 16:06:00 EDT, Supply Start Date: 12/05/20 [...] cath September 2020 ef 35%(Confirmed) 10/20/20 Active residential current use of opi 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 [place] 4, 22had surgery 2011 23sx pending 24had sx 25seeing ENT 26surgery 1991 27MRI 2006 28possible ITP 29monitor 30Tubular adenoma 2014 Social History Social History Type Response Smoking Status Former smoker; Tobac co use times per day: smoked < 1/2 PPD; Started at age: 18; Stopped at age: 65; entered on: 12/23/13 Sex
--- OUTSIDE RECORDS SUMMARY | 2022-12-09 11:30 | XMS_ITS | Continuity of Care Document ---
Author Name Unknown Organization [facility] Mumtaz jennifer Address [address] [address]- Care Team Providers Care Nursing Assistants Teacher Name Role Phone Luis RICHARD, Kilo Pendleton Primary Care Physician [facility]counter [facility] Date(s): 11/08/20 - 12/08/20 [facility] [address] [address]- Allergies, Adverse Reactions, Alerts Substance Reaction Severity [...] VIS 2Admin Note: VIS-GIVEN 3Result Comment: [02/28/2017] [facility]: [id number] 4Location History: [facility] 5Admin Note: VIS 12/18/2010 [...] 11 Refills, Maintenance, 12/03/20 16:45:00 EDT, Tablet, [facility] #[id number], Partial fill upon patient request if the [...] Maintenance, DX: STROKE I63.9 LIFETIME NEED fax: [phone], 12/05/20 16:06:00 EDT, Supply Start Date: 12/05/20 Status: Ordered Incruse Ellipta 62.5 mcg/inh inhalation powder 1 each, Inhalation, Every 24 hours, doses should be taken at least 24 hours apart mitzy stout,# 30 each, 11 Refills, Maintenance, 12/04/20 9:56:00 EDT, Powder, [facility] #[id number], Partial fill upon patient request if the [...] 10/30/20 8:19:00 EDT, Route to Pharmacy Electronically, [facility] #[id number], 168, cm, :43:00 EDT, Height, 72.7, kg, [...] 1 Refills, Maintenance, 03/06/20 15:49:00 EDT, Tablet, [facility], 168, cm, 12/06/19 13:53:00 EDT, Height Start Date: 03/06/20 Stop Date: 09/02/20 Status: Ordered nitroglycerin 0.3 mg sublingual tablet 1 tablet = 0.3 mg, Sublingual, Every 5 minutes, PRN as needed for chest pain, not to exceed 3 doses/15 min--if pain persists, seek medical attention, # 100 tablet, 0 Refills, Maintenance, 12/04/20 10:05:00 EDT, Tablet, [facility] #[id number], Par... 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 [place] 4, 22had surgery 2011 23sx pending 24had sx 25seeing ENT 26surgery 1991 27MRI 2006 28possible ITP 29monitor 30Tubular adenoma 2014 Social History Social History Type Response Smoking Status Former smoker; Tobac co use times per day: smoked < 1/2 PPD; Started at age: 18; Stopped at age: 65; entered on: 12/23/13 Sex
--- OUTSIDE RECORDS SUMMARY | 2022-12-09 11:30 | XMS_ITS | Continuity of Care Document ---
Author Name Unknown Organization [facility] Mumta[facility] jennifer Address [address] [address]- Care Team Providers Care Lozenge Maker Helper Name Role Phone Luis RICHARD, Kilo Pendleton Primary Care Physician Encounter [facility] Date(s): 11/23/20 - 11/30/20 [facility] 759 [facility] Room [address] [place] [phone]- Attending Physician: Elsie Irving MD Referring Physician: [facility] Allergies, Adverse Reactions, Alerts Substance Reaction Severity [...] VIS 2Admin Note: VIS-GIVEN 3Result Comment: [02/28/2017] [facility]: [id number] 4Location History: [facility] 5Admin Note: VIS 12/18/2010 [...] 10/30/20 8:19:00 EDT, Route to Pharmacy Electronically, [facility] #[id number], 168, cm, :43:00 EDT, Height, 72.7, kg, [...] 1 Refills, Maintenance, 03/06/20 15:49:00 EDT, Tablet, [facility], 168, cm, 12/06/19 13:53:00 EDT, Height Start Date: 03/06/20 Stop Date: 09/02/20 Status: Ordered omeprazole 20 mg oral enteric coated capsule 1 capsule = 20 mg, By Mouth, Daily, before breakfast, # 90 capsule, 1 Refills, Maintenance, 08/17/20 15:28:00 EDT, EC Capsule, [facility] #[id number], 168, cm, 07/17/20 14:04:00 EST, Height Start [...] cath September 2020 ef 35%(Confirmed) 10/20/20 [facility] current use of opi 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 [place] 4, 22had surgery 2011 23sx pending 24had sx 25seeing ENT 26surgery 1991 27MRI 2006 28possible ITP 29monitor 30Tubular adenoma 2014 Vital Signs Most recent to oldest [Reference Range]: 1 Height 168 cm (11/23/20 12:10 PM) Weight 64.54 kg (11/23/20 12:10 PM) Oxygen Saturation [94-100 %] 96 % (11/23/20 12:10 PM) Pulse Rate [55-90 bpm] 83 bpm (11/23/20 12:10 PM) Body Mass Index [18.5-24.99] 22.87 (11/23/20 12:10 PM) Blood Pressure [90-138/55-84 mm Hg] 108/ 70mm Hg (11/23/20 12:10 PM) Respiratory Rate [16-30 br/min] 18 br/mi n (11/23/20 12:10 PM) Mode of Delivery (Oxygen) Room air (11/23/20 12:10 PM) Blood pressure sites Arm, left (11/23/20 12:10 PM) Weight Obtained Via Patient/family state d (11/23/20 12:10 PM) Social History Social History Type Response Smoking Status Former smoker; Tobac co use times per day: smoked < 1/2 PPD; Started at age: 18; Stopped at age: 65; entered on: 12/23/13 Sex
--- OUTSIDE RECORDS SUMMARY | 2022-12-09 11:30 | XMS_ITS | Continuity of Care Document ---
Author Name Unknown Organization [facility] Anthony Sidney lt Address [address] [place] [address]- Care Team Providers Care Undercover Agent Name Role Phone Luis RICHARD, Kilo Pendleton Primary Care Physician [facility]counter [facility] Date(s): 02/15/21 - 03/17/21 [facility] Adult [address] [place] [address]- Allergies, Adverse Reactions, Alerts Substance Reaction Severity [...] VIS 2Admin Note: VIS-GIVEN 3Result Comment: [02/28/2017] [facility]: [id number] 4Location History: [facility] 5Admin Note: VIS 12/18/2010 [...] tablet, 3 Refills, Maintenance, 02/05/21 8:58:00 EDT, [facility] #[id number], 168, cm, 01/30/21 11:10:00 EDT, Height, 72.7, [...] 2 Refills, Maintenance, 01/03/21 8:18:00 EDT, Tablet, [facility] #[id number], Partial fill upon patient request if the [...] 12/28/20 9:56:00 EDT, Route to Pharmacy Electronically, [facility] #[id number], Partial fill... Start Date: 12/28/20 Status: Ordered docusate sodium 100 mg oral capsule 100 mg, 1, capsule, By Mouth, 2 times a day, # 60 capsule, Refills 6, Tot. Refills 6, Maintenance, 01/03/21 8:19:00 EDT, Route to Pharmacy Electronically, [facility] #[id number], Partial fill upon patient request if the prescription is for a sche... Start Date: 01/03/21 Status: Ordered ezetimibe 10 mg oral tablet 1 tablet = 10 mg, By Mouth, Daily, take with atorvastatin, # 30 tablet, 11 Refills, Maintenance, 12/03/20 16:45:00 EDT, Tablet, [facility] #[id number], Partial fill upon patient request if the [...] Maintenance, DX: STROKE I63.9 LIFETIME NEED fax: [phone], 12/05/20 16:06:00 EDT, Supply Start Date: 12/05/20 Status: Ordered Incruse Ellipta 62.5 mcg/inh inhalation powder 1 each, Inhalation, Every 24 hours, doses should be taken at least 24 hours apart repaces spitriva,# 30 each, 11 Refills, Maintenance, 12/04/20 9:56:00 EDT, Powder, [facility] #[id number], Partial fill upon patient request if the prescription i... Start Date: 12/04/20 Status: Ordered isosorbide mononitrate 30 mg oral tablet, extended release 1 tablet, By Mouth, Daily in AM, # 30 tablet, 0 Refills, [facility] #[id number], 168, cm, 01/10/21 10:40:00 EDT, Height, 72.7, kg, 10/12/20 9:18:00 EDT, Dry Weight Start Date: 01/28/21 Status: Ordered isosorbide mononitrate 30 mg oral tablet, extended release 1 tablet, By Mouth, Daily in AM, # 30 tablet, 0 Refills, [facility] #[id number], 168, cm, 01/10/21 10:40:00 EDT, Height, 72.7, kg, 10/12/20 9:18:00 EDT, Dry Weight Start Date: 01/28/21 Status: Ordered lamotrigine 25 mg oral tablet 25 mg, 1, tablet, By Mouth, 2 times a day, # 180 tablet, Refills 1, Tot. Refills 1, Maintenance, 10/30/20 8:19:00 EDT, Route to Pharmacy Electronically, [facility] #[id number], 168, cm, :43:00 EDT, Height, 72.7, kg, [...] 02/21/21 16:10:00 EDT, Route to Pharmacy Electronically, [facility] #[id number], Partial fill upon patient request if the prescription is for a schedule II opi... Start Date: 02/21/21 Status: Ordered metFORMIN 1000 mg oral tablet 1 tablet = 1,000 mg, By Mouth, 2 times a day, with meals, # 180 tablet, 1 Refills, Maintenance, 12/27/20 13:44:00 EDT, Tablet, [facility] #[id number], 168, cm, 12/01/20 9:19:00 EDT, Height, 72.7, kg, 10/12/20 9:18:00 EDT, Dry Weight Start Date: 12/27/20 Stop Date: 06/25/21 Status: Ordered metoprolol 25 mg oral tablet, extended release 12.5 mg, 0.5, tablet, By Mouth, Daily, # 30 tablet, Refills 2, Tot. Refills 2, Maintenance, 01/10/21 11:01:00 EDT, Route to Pharmacy Electronically, [facility] #[id number], Partial fill upon patient request if the prescription is for a schedule I... Start Date: 01/10/21 Status: Ordered nitroglycerin 0.3 mg sublingual tablet 1 tablet = 0.3 mg, Sublingual, Every 5 minutes, PRN as needed for chest pain, not to exceed 3 doses/15 min--if pain persists, seek medical attention, # 100 tablet, 0 Refills, Maintenance, 12/04/20 10:05:00 EDT, Tablet, [facility] #[id number], Par... Start Date: 12/04/20 Status: Ordered omeprazole 20 mg oral enteric coated capsule 1 capsule = 20 mg, By Mouth, Daily, before breakfast, # 90 capsule, 0 Refills, Maintenance, 02/13/21 15:28:00 EDT, EC Capsule, [facility] #[id number], 168, cm, 02/05/21 14:18:00 EDT, Height, 72.7, kg, 10/12/20 9:18:00 EDT, Dry Weight Start Date: 02/13/21 Stop Date: 05/14/21 Status: Ordered oxyCODONE 10 mg oral tablet 1 tablet = 10 mg, By Mouth, Every 4 hours, PRN as needed for pain, chronic back pain, # 168 tablet,0 Refills, Maintenance, 03/05/21 11:41:00 EDT, Tablet, [facility] #[id number], Partial fill upon patient request if the [...] Maintenance, DX: STROKE I63.9 LIFETIME NEED fax: [phone], 12/05/20 16:06:00 EDT, Supply Start Date: 12/05/20 [...] cath September 2020 ef 35%(Confirmed) 10/20/20 Active [facility] current use of opi ate analgesic(Confirmed) 19, [...] 28, 29 Active Tubular adenoma of colon 5/ declines another colo;2020(Confirmed) 30 Active Vitamin [...] week 19care ploan reviewed 20comm 2 21PHQ9;2. [place] 4, 22had surgery 2011 23sx pending 24had sx 25seeing ENT 26surgery 1991 27MRI 2006 28possible ITP 29monitor 30Tubular adenoma 2014 Social History Social History Type Response Smoking Status Former smoker; Tobac co use times per day: smoked < 1/2 PPD; Started at age: 18; Stopped at age: 65; entered on: 12/23/13 Sex
--- OUTSIDE RECORDS SUMMARY | 2022-12-09 11:30 | XMS_ITS | Continuity of Care Document ---
Author Name Unknown Organization [facility] Mumtaz jennifer Address [address] [address]- Care Team Providers Care Lecturer In Marketing Name Role Phone Luis RICHARD, Kilo Pendleton Primary Care Physician [facility] Date(s): 11/29/20 - 12/29/20 [facility] 759 [facility] Room [address] [place] [address]- Allergies, Adverse Reactions, Alerts Substance Reaction Severity [...] VIS 2Admin Note: VIS-GIVEN 3Result Comment: [02/28/2017] [facility]: [id number] 4Location History: [facility] 5Admin Note: VIS 12/18/2010 [...] 12/28/20 9:56:00 EDT, Route to Pharmacy Electronically, [facility] #[id number], Partial fill... Start Date: 12/28/20 Status: Ordered Docusate Sodium Capsule 100 mg, [...] 11 Refills, Maintenance, 12/03/20 16:45:00 EDT, Tablet, [facility] #[id number], Partial fill upon patient request if the [...] Maintenance, DX: STROKE I63.9 LIFETIME NEED fax: [phone], 12/05/20 16:06:00 EDT, Supply Start Date: 12/05/20 Status: Ordered Incruse Ellipta 62.5 mcg/inh inhalation powder 1 each, Inhalation, Every 24 hours, doses should be taken at least 24 hours apart repaces spitriva,# 30 each, 11 Refills, Maintenance, 12/04/20 9:56:00 EDT, Powder, [facility] #[id number], Partial fill upon patient request if the [...] 10/30/20 8:19:00 EDT, Route to Pharmacy Electronically, [facility] #[id number], 168, cm, :43:00 EDT, Height, 72.7, kg, [...] 1 Refills, Maintenance, 12/27/20 13:44:00 EDT, Tablet, [facility] #[id number], 168, cm, 12/01/20 9:19:00 EDT, Height, 72.7, kg, 10/12/20 9:18:00 EDT, Dry Weight Start Date: 12/27/20 Stop Date: 06/25/21 Status: Ordered nitroglycerin 0.3 mg sublingual tablet 1 tablet = 0.3 mg, Sublingual, Every 5 minutes, PRN as needed for chest pain, not to exceed 3 doses/15 min--if pain persists, seek medical attention, # 100 tablet, 0 Refills, Maintenance, 12/04/20 10:05:00 EDT, Tablet, [facility] #[id number], Par... Start Date: 12/04/20 Status: Ordered omeprazole 20 mg oral enteric coated capsule 1 capsule = 20 mg, By Mouth, Daily, before breakfast, # 90 capsule, 1 Refills, Maintenance, 08/17/20 15:28:00 EDT, EC Capsule, [facility] #[id number], 168, cm, 07/17/20 14:04:00 EST, Height Start Date: 08/17/20 Stop Date: 02/13/21 Status: Ordered oxyCODONE 10 mg oral tablet 1 tablet = 10 mg, By Mouth, Every 4 hours, PRN as needed for pain, chronic back pain, # 168 tablet,0 Refills, Maintenance, 12/26/20 11:00:00 EDT, Tablet, [facility] #[id number], Partial fill upon patient request if the [...] Maintenance, DX: STROKE I63.9 LIFETIME NEED fax: [phone], 12/05/20 16:06:00 EDT, Supply Start Date: 12/05/20 [...] cath September 2020 ef 35%(Confirmed) 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 [place] 4, 22had surgery 2011 23sx pending 24had sx 25seeing ENT 26surgery 1991 27MRI 2006 28possible ITP 29monitor 30Tubular adenoma 2014 Social History Social History Type Response Smoking Status Former smoker; Tobac co use times per day: smoked < 1/2 PPD; Started at age: 18; Stopped at age: 65; entered on: 12/23/13 Sex
--- OUTSIDE RECORDS SUMMARY | 2022-12-09 11:30 | XMS_ITS | Continuity of Care Document ---
Author Name Unknown Organization [facility] Alessandro Cruz Sidney lt Address [address] [place] [address]- Care Team Providers Care Geotechnical Field Technician Name Role Phone Luis RICHARD, Kilo Pendleton Primary Care Physician [phone] [facility]counter [facility] Date(s): 01/03/21 - 02/02/21 [facility] Al[facility] Adult [address] [place] [address]- Allergies, Adverse Reactions, Alerts Substance Reaction Severity [...] VIS 2Admin Note: VIS-GIVEN 3Result Comment: [02/28/2017] [facility]: [id number] 4Location History: [facility] 5Admin Note: VIS 12/18/2010 [...] tablet, 0 Refills, Maintenance, 01/10/21 17:48:00 EDT, [facility] #[id number], 168, cm, 01/10/21 10:40:00 EDT, Height, 72.7, [...] 2 Refills, Maintenance, 01/03/21 8:18:00 EDT, Tablet, [facility] #[id number], Partial fill upon patient request if the [...] 12/28/20 9:56:00 EDT, Route to Pharmacy Electronically, [facility] #[id number], Partial fill... Start Date: 12/28/20 Status: Ordered docusate sodium 100 mg oral capsule 100 mg, 1, capsule, By Mouth, 2 times a day, # 60 capsule, Refills 6, Tot. Refills 6, Maintenance, 01/03/21 8:19:00 EDT, Route to Pharmacy Electronically, [facility] #[id number], Partial fill upon patient request if the prescription is for a sche... Start Date: 01/03/21 Status: Ordered ezetimibe 10 mg oral tablet 1 tablet = 10 mg, By Mouth, Daily, take with atorvastatin, # 30 tablet, 11 Refills, Maintenance, 12/03/20 16:45:00 EDT, Tablet, [facility] #[id number], Partial fill upon patient request if the [...] Maintenance, DX: STROKE I63.9 LIFETIME NEED fax: [phone], 12/05/20 16:06:00 EDT, Supply Start Date: 12/05/20 Status: Ordered Incruse Ellipta 62.5 mcg/inh inhalation powder 1 each, Inhalation, Every 24 hours, doses should be taken at least 24 hours apart repaces spitriva,# 30 each, 11 Refills, Maintenance, 12/04/20 9:56:00 EDT, Powder, [facility] #[id number], Partial fill upon patient request if the prescription i... Start Date: 12/04/20 Status: Ordered isosorbide mononitrate 30 mg oral tablet, extended release 1 tablet, By Mouth, Daily in AM, # 30 tablet, 0 Refills, [facility] #[id number], 168, cm, 01/10/21 10:40:00 EDT, Height, 72.7, kg, 10/12/20 9:18:00 EDT, Dry Weight Start Date: 01/28/21 Status: Ordered isosorbide mononitrate 30 mg oral tablet, extended release 1 tablet, By Mouth, Daily in AM, # 30 tablet, 0 Refills, [facility] #[id number], 168, cm, 01/10/21 10:40:00 EDT, Height, 72.7, kg, 10/12/20 9:18:00 EDT, Dry Weight Start Date: 01/28/21 Status: Ordered lamotrigine 25 mg oral tablet 25 mg, 1, tablet, By Mouth, 2 times a day, # 180 tablet, Refills 1, Tot. Refills 1, Maintenance, 10/30/20 8:19:00 EDT, Route to Pharmacy Electronically, [facility] #[id number], 168, cm, :43:00 EDT, Height, 72.7, kg, [...] 1 Refills, Maintenance, 12/27/20 13:44:00 EDT, Tablet, [facility] #[id number], 168, cm, 12/01/20 9:19:00 EDT, Height, 72.7, kg, 10/12/20 9:18:00 EDT, Dry Weight Start Date: 12/27/20 Stop Date: 06/25/21 Status: Ordered metoprolol 25 mg oral tablet, extended release 12.5 mg, 0.5, tablet, By Mouth, Daily, # 30 tablet, Refills 2, Tot. Refills 2, Maintenance, 01/10/21 11:01:00 EDT, Route to Pharmacy Electronically, [facility] #[id number], Partial fill upon patient request if the prescription is for a schedule I... Start Date: 01/10/21 Status: Ordered nitroglycerin 0.3 mg sublingual tablet 1 tablet = 0.3 mg, Sublingual, Every 5 minutes, PRN as needed for chest pain, not to exceed 3 doses/15 min--if pain persists, seek medical attention, # 100 tablet, 0 Refills, Maintenance, 12/04/20 10:05:00 EDT, Tablet, [facility] #[id number], Par... Start Date: 12/04/20 Status: Ordered omeprazole 20 mg oral enteric coated capsule 1 capsule = 20 mg, By Mouth, Daily, before breakfast, # 90 capsule, 1 Refills, Maintenance, 08/17/20 15:28:00 EDT, EC Capsule, [facility] #[id number], 168, cm, 07/17/20 14:04:00 EST, Height Start [...] tablet,0 Refills, Maintenance, 01/30/21 15:55:00 EDT, Tablet, [facility] #[id number], Partial fill upon patient request if the [...] 01/03/21 8:20:00 EDT, Route to Pharmacy Electronically, [facility] #[id number], Partial fill upon patient request if the prescription is for a schedule II opi... Start Date: 01/03/21 Status: Ordered Tub transfer bench Tub transfer bench, See Instructions, # 1 each, Refills 0, Tot. Refills 0, Maintenance, DX: STROKE I63.9 LIFETIME NEED fax: [phone], 12/05/20 16:06:00 EDT, Supply Start Date: 12/05/20 [...] cath September 2020 ef 35%(Confirmed) 10/20/20 Active [facility] current use of opi ate analgesic(Confirmed) , [...] week 19care ploan reviewed 20comm 2 21PHQ9;2. [place] 4, 22had surgery 2011 23sx pending 24had sx 25seeing ENT 26surgery 1991 27MRI 2006 28possible ITP 29monitor 30Tubular adenoma 2014 Social History Social History Type Response Smoking Status Former smoker; Tobac co use times per day: smoked < 1/2 PPD; Started at age: 18; Stopped at age: 65; entered on: 12/23/13 Sex
--- OUTSIDE RECORDS SUMMARY | 2022-12-09 11:30 | XMS_ITS | Continuity of Care Document ---
Author Name Unknown Organization [facility] Alessandro Cruz [place] Address [address] [place] [address]- Care Team Providers Care Tack Driller Name Role Phone Luis RICHARD, Kilo Pendleton Primary Care Physician [place] [facility] [place]13[place] [facility] Adult [address] [place] [address]- Encounter Diagnosis Medicare annual wellness visit, subsequent(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) - 06/29/21 DM (diabetes mellitus), type 2 with peripheral vascular complications(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) - 06/29/21 Diabetes mellitus with renal manifestation(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) - 06/29/21 ASHD cath September 2020 abnormal ef 35% see report(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) - 06/29/21 Tubular adenoma of colon 2014/ another colo;2020(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) - 06/29/21 Essential familial hyperlipidemia(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) - 06/29/21 Benign Essential Hypertension(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) - 06/29/21 Chronic renal disease, stage 3, moderately decreased glomerular filtration rate between 30-59 mL/min/1.73 square meter(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) - 06/29/21 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%(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) - 06/29/21 Encounter for monitoring long-term proton pump inhibitor therapy(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) - 06/29/21 GERD'egd 2017(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) - 06/29/21 Vitamin D deficiency(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) - 06/29/21 Ischemic cardiomyopathy cath September 2020 ef 35%(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) - 06/29/21 H/O: CVA (rain stem,lacunes)(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) - 06/29/21 Adrenal adenoma left;incidental 2020/normal rufina.plasma meranephr/normeta (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) - 06/29/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(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) - 06/29/21 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/neg BX 2020;ENT(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) - 06/29/21 Failed back syndrome sx 1991(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) - 06/29/21 Attending Physician: Luis RICHARD, Klio Pendleton Allergies, Adverse Reactions, Alerts Substance Reaction Severity Status Duloxetine 1 rash Active 1GI Immunizations Given and Recorded Vaccine Date Status Refusal Reason SARS-CoV-2 mRNA ([id number]) vax 1 06/29/21 Given influenza virus vaccine, [...] Vaccine (oldterm) 14 03/11/06 Given 1Result Comment: [facility]-[id number] 2Result Comment: [facility]: [id number] 3Result Comment: [02/28/2017] HD [facility]: [id number] [facility] 5Admin Note: VIS 12/18/2010 [...] tablet, 3 Refills, Maintenance, 02/05/21 8:58:00 EDT, [facility] #[id number], 168, cm, 01/30/21 11:10:00 EDT, Height, 72.7, kg, 10/12/20 9:18:00 EDT, Dry Weight Start Date: 02/05/21 Status: Ordered baclofen 10 mg oral tablet 0.5, tablet, By Mouth, 3 times a day, # 45 tablet, Refills 0, Tot. Refills 0, 06/01/21 14:08:00 EST, Route to Pharmacy Electronically, [facility] #[id number], 168, cm, 03/19/21 15:01:00 EDT, Height, 72.7, kg, 10/12/20 9:18:00 EDT, Dry Weight Start Date: 06/01/21 Status: Ordered clopidogrel 75 mg oral tablet 75 mg, 1, tablet, By Mouth, Daily, Continue medication through 09/2021 unless otherwise instructed.,# 90 tablet, Refills 3, Tot. Refills 3, Maintenance, 12/28/20 9:56:00 EDT, Route to Pharmacy Electronically, [facility] #[id number], Partial fill... Start Date: 12/28/20 Status: Ordered docusate sodium 100 mg oral capsule 100 mg, 1, capsule, By Mouth, 2 times a day, # 60 capsule, Refills 6, Tot. Refills 6, Maintenance, 01/03/21 8:19:00 EDT, Route to Pharmacy Electronically, [facility] #[id number], Partial fill upon patient request if the prescription is for a sche... Start Date: 01/03/21 Status: Ordered ezetimibe 10 mg oral tablet 1 tablet = 10 mg, By Mouth, Daily, take with atorvastatin, # 30 tablet, 11 Refills, Maintenance, 12/03/20 16:45:00 EDT, Tablet, [facility] #[id number], Partial fill upon patient request if the prescription is for a schedule II opioid drug., 168,... Start Date: 12/03/20 Status: Ordered Farxiga 5 mg oral tablet 1 tablet = 5 mg, By Mouth, Daily, # 30 tablet, 6 Refills, Maintenance, 07/06/21 13:16:00 EST, Tablet, [facility] #[id number], Partial fill upon patient request if the [...] 11 Refills, Maintenance, 12/04/20 9:56:00 EDT, Powder, [facility] #[id number], Partial fill upon patient request if the prescription i... Start Date: 12/04/20 Status: Ordered isosorbide mononitrate 30 mg oral tablet, extended release 1 tablet, By Mouth, Daily in AM, # 30 tablet, 0 Refills, [facility] #[id number], 168, cm, 01/10/21 10:40:00 EDT, Height, 72.7, kg, 10/12/20 9:18:00 EDT, Dry Weight Start Date: 01/28/21 Status: Ordered lamotrigine 25 mg oral tablet 25 mg, 1, tablet, By Mouth, 2 times a day, # 180 tablet, Refills 1, Tot. Refills 1, Maintenance, 07/11/21 13:45:00 EST, Route to Pharmacy Electronically, [facility] #[id number], 168, cm, 07/06/21 13:13:00 EST, Height, 72.7, [...] 02/21/21 16:10:00 EDT, Route to Pharmacy Electronically, [facility] #[id number], Partial fill upon patient request if the prescription is for a schedule II opi... Start Date: 02/21/21 Status: Ordered metoprolol 25 mg oral tablet, extended release 12.5 mg, 0.5, tablet, By Mouth, Daily, # 30 tablet, Refills 2, Tot. Refills 2, Maintenance, 01/10/21 11:01:00 EDT, Route to Pharmacy Electronically, [facility] #[id number], Partial fill upon patient request if the prescription is for a schedule I... Start Date: 01/10/21 Status: Ordered nitroglycerin 0.3 mg sublingual tablet 1 tablet = 0.3 mg, Sublingual, Every 5 minutes, PRN as needed for chest pain, not to exceed 3 doses/15 min--if pain persists, seek medical attention, # 100 tablet, 0 Refills, Maintenance, 12/04/20 10:05:00 EDT, Tablet, [facility] #[id number], Par... Start Date: 12/04/20 Status: Ordered omeprazole 20 mg oral enteric coated capsule 1 capsule = 20 mg, By Mouth, Daily, before breakfast, # 90 capsule, 0 Refills, Maintenance, 07/11/21 9:03:00 EST, EC Capsule, [facility] #[id number], 168, cm, 07/06/21 13:13:00 EST, Height, 72.7, kg, 10/12/20 9:18:00 EDT, Dry Weight Start Date: 07/11/21 Stop Date: 10/09/21 Status: Ordered oxyCODONE 10 mg oral tablet 1 tablet = 10 mg, By Mouth, Every 4 hours, PRN as needed for pain, chronic back pain, # 168 tablet,0 Refills, Maintenance, 06/23/21 8:19:00 EST, Tablet, [facility] #[id number], Partial fill upon patient request if the prescription is for a sched... Start Date: 06/23/21 Status: Ordered Vitamin C 500 mg oral [...] ef 35%/Echo Sept 2020 40-45%(Confirmed) 10/20/20 Active USP current use of opi 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 [place] 4, 22had surgery 2011 23sx pending 24had sx 25seeing ENT 26surgery 1991 27MRI 2006 28possible ITP 29monitor 30Tubular adenoma 2014 Diagnosis Diagnosis Type Effective Dates Health Status Clinical Service Informant Medicare annual wellness visit, subsequent 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 06/29/21 DM (diabetes mellitus), type 2 with peripheral vascular complications 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 06/29/21 Diabetes mellitus with renal manifestation 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 06/29/21 ASHD cath September 2020 abnormal ef 35% see report 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 06/29/21 Benign Essential Hypertension 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 06/29/21 Essential familial hyperlipidemia 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 06/29/21 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% 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 06/29/21 Chronic renal disease, stage 3, moderately decreased glomerular filtration rate between 30-59 mL/min/1.73 square meter 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 06/29/21 GERD'egd 2017 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 06/29/21 Encounter for monitoring long-term proton pump inhibitor therapy 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 06/29/21 Tubular adenoma of colon 2014/ declines another colo;2020 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 06/29/21 Vitamin D deficiency 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 06/29/21 Ischemic cardiomyopathy cath September 2020 ef 35% 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 06/29/21 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 2. The LV systolic function is low normal . The left ventricular ejection fraction is 45-50 %. 3. The mid to distal anteroseptal, mid to distal inferoseptal, inferior and apical willis are akinetic. There is abnormal septal motion consistent with prior cardiac surgery. 4. Grade I, mild diastolic dysfunction with impaired LV relaxation. 5. The right ventricle is normal in size. Right ventricular systolic function appears preserved. Comparison Comparison is made to the study of October 22, 2020. No definite interval change. Vital Signs Most recent to oldest [Reference Range]: 1 2 3 Height 168 cm (07/06/21 1:13 PM) 168 cm (07/06/21 1:03 PM) 168 cm (07/06/21 12:43 PM) Weight 75.8 kg (07/06/21 12:43 PM) Oxygen Saturation [94-100 %] 99 % (07/06/21 12:43 PM) Pulse Rate [55-90 bpm] 78 bpm (07/06/21 12:43 PM) Body Mass Index [18.5-24.99] 26.86 *H* (07/06/21 12:43 PM) Blood Pressure [90-138/55-84 mm Hg] 136/70mm Hg (07/06/21 1:13 PM) 142/70mm Hg *H* (07/06/21 1:03 PM) 152/75mm Hg *H* (07/06/21 12:43 PM) Respiratory Rate [16-30 br/min] 16 br/min (07/06/21 12:43 PM) Temperature [96.8-100.4 DegF] 98.0 DegF (07/06/21 12:43 PM) Mode of Delivery (Oxygen) Room air (07/06/21 12:43 PM) Blood pressure sites Arm, left (07/06/21 1:13 PM) Arm, left (07/06/21 1:03 PM) Arm, left (07/06/21 12:43 PM) Temperature Route Oral (07/06/21 12:43 PM) Weight Obtained Via Standing scale (07/06/21 12:43 PM) Social History Social History Type Response Smoking Status Former smoker; Tobac co use times per day: smoked < 1/2 PPD; Started at age: 18; Stopped at age: 65; entered on: 12/23/13 Sex
--- OUTSIDE RECORDS SUMMARY | 2022-12-09 11:30 | XMS_ITS | Continuity of Care Document ---
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 Role Phone Luis RICHARD, Kilo Pendleton Primary Care Physician [phone] Encounter [facility] Date(s): 04/18/20 - 05/18/20 [facility] [address] [place] [address]- Attending Physician: Mitesh Lopez Admitting Physician: AdmMitesh [...] 2Admin Note: VIS-GIVEN 3Result Comment: [02/28/2017] [facility] [place]: [id number] 4[facility] History[facility] 5Admin Note: VIS 12/18/2010 6Admin Note: VIS given 01/02/10 7Admin Note: vis 03/03 8Result Comment: error 9Admin Note: hep A #1 10Admin Note: vis 01/01 11Admin Note: VIS 12Admin Note: vis-given Medications amLODIPine 5 mg oral tablet 5 mg, 1, tablet, By Mouth, Daily, # 90 tablet, Refills 0, Tot. Refills 0, Maintenance, 03/06/20 15:55:00 EDT, Route to Pharmacy Electronically, [facility], 168, cm, 12/06/19 13:53:00 [...] 01/25/20 10:28:00 EDT, Route to Pharmacy Electronically, [facility], 168, cm, 12/06/19 13:53:00 EDT, Height Start Date: 01/25/20 Status: Ordered lamotrigine 25 mg oral tablet 25 mg, 1, tablet, By Mouth, 2 times a day, # 180 tablet, Refills 1, Tot. Refills 1, Maintenance, 08/21/20 16:55:00 EDT, [id number], 168, cm, 04/18/20 10:07:00 EST, Height Start Date: 08/21/20 Stop Date: 02/17/21 Status: Ordered lamotrigine 25 mg oral tablet 25 mg, 1, tablet, By Mouth, 2 times a day, for 30 days, # 60 tablet, Refills 5, Tot. Refills 5, Hard Stop 08/21/20 16:55:00 EDT, 02/23/20 16:55:00 EDT, Route to Pharmacy Electronically, [facility], 168, cm, 12/06/19 13:53:00 EDT, Height Start Date: 02/23/20 Stop Date: 08/21/20 Status: Ordered lisinopril 20 mg oral tablet 40 mg, 2, tablet, By Mouth, Daily, new dose, # 180 tablet, Refills 1, Tot. 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 [place] 4, 22had surgery 2011 23sx pending 24had sx 25seeing ENT 26surgery 1991 27MRI 2006 28possible ITP 29monitor 30Tubular adenoma 2014 Social History Social History Type Response Smoking Status Former smoker; Tobac co use times per day: smoked < 1/2 PPD; Started at age: 18; Stopped at age: 65; entered on: 12/23/13 Sex
--- OUTSIDE RECORDS SUMMARY | 2022-12-09 11:30 | XMS_ITS | Continuity of Care Document ---
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 Name Role Phone Luis RICHARD, Kilo Pendleton Primary Care Physician Encounter [facility] Date(s): 12/18/20 - 01/17/21 [facility] Adult [address] [place] [address]- Allergies, Adverse Reactions, Alerts Substance Reaction Severity [...] VIS 2Admin Note: VIS-GIVEN 3Result Comment: [02/28/2017] [facility]: [id number] 4Location History: [facility] 5Admin Note: VIS 12/18/2010 [...] tablet, 0 Refills, Maintenance, 01/10/21 17:48:00 EDT, [facility] #[id number], 168, cm, 01/10/21 10:40:00 EDT, Height, 72.7, kg, 10/12/20 9:18:00 EDT, Dry Weight Start Date: 01/10/21 Status: Ordered baclofen 5 mg oral tablet 1 tablet = 5 mg, By Mouth, 3 times a day, # 90 tablet, 2 Refills, Maintenance, 01/03/21 8:18:00 EDT, Tablet, [id number], Partial fill upon patient request if the [...] 12/28/20 9:56:00 EDT, Route to Pharmacy Electronically, [id number], Partial fill... Start Date: 12/28/20 Status: Ordered docusate sodium 100 mg oral capsule 100 mg, 1, capsule, By Mouth, 2 times a day, # 60 capsule, Refills 6, Tot. Refills 6, Maintenance, 01/03/21 8:19:00 EDT, Route to Pharmacy Electronically, [id number], Partial fill upon patient request if the prescription is for a sche... Start Date: 01/03/21 Status: Ordered ezetimibe 10 mg oral tablet 1 tablet = 10 mg, By Mouth, Daily, take with atorvastatin, # 30 tablet, 11 Refills, Maintenance, 12/03/20 16:45:00 EDT, Tablet, [facility][id number], Partial fill upon patient request if the [...] Maintenance, DX: STROKE I63.9 LIFETIME NEED fax: [phone], 12/05/20 16:06:00 EDT, Supply Start Date: 12/05/20 Status: Ordered Incruse Ellipta 62.5 mcg/inh inhalation powder 1 each, Inhalation, Every 24 hours, doses should be taken at least 24 hours apart repaces spitriva,# 30 each, 11 Refills, Maintenance, 12/04/20 9:56:00 EDT, Powder, [facility] #[id number], Partial fill upon patient request if the [...] 10/30/20 8:19:00 EDT, Route to Pharmacy Electronically, [facility] #[id number], 168, cm, :43:00 EDT, Height, 72.7, kg, [...] 1 Refills, Maintenance, 12/27/20 13:44:00 EDT, Tablet, [facility] #[id number], 168, cm, 12/01/20 9:19:00 EDT, Height, 72.7, kg, 10/12/20 9:18:00 EDT, Dry Weight Start Date: 12/27/20 Stop Date: 06/25/21 Status: Ordered metoprolol 25 mg oral tablet, extended release 12.5 mg, 0.5, tablet, By Mouth, Daily, # 30 tablet, Refills 2, Tot. Refills 2, Maintenance, 01/10/21 11:01:00 EDT, Route to Pharmacy Electronically, [id number], Partial fill upon patient request if the prescription is for a schedule I... Start Date: 01/10/21 Status: Ordered nitroglycerin 0.3 mg sublingual tablet 1 tablet = 0.3 mg, Sublingual, Every 5 minutes, PRN as needed for chest pain, not to exceed 3 doses/15 min--if pain persists, seek medical attention, # 100 tablet, 0 Refills, Maintenance, 12/04/20 10:05:00 EDT, Tablet, [facility] #[id number], Par... Start Date: 12/04/20 Status: Ordered omeprazole 20 mg oral enteric coated capsule 1 capsule = 20 mg, By Mouth, Daily, before breakfast, # 90 capsule, 1 Refills, Maintenance, 08/17/20 15:28:00 EDT, EC Capsule, [facility] #[id number], 168, cm, 07/17/20 14:04:00 EST, Height Start Date: 08/17/20 Stop Date: 02/13/21 Status: Ordered oxyCODONE 10 mg oral tablet 1 tablet = 10 mg, By Mouth, Every 4 hours, PRN as needed for pain, chronic back pain, # 168 tablet,0 Refills, Maintenance, 12/26/20 11:00:00 EDT, Tablet, [id number], Partial fill upon patient request if the [...] 01/03/21 8:20:00 EDT, [facility], [id number], Partial fill upon patient request if the prescription is for a schedule II opi... Start Date: 01/03/21 Status: Ordered Tub transfer bench Tub transfer bench, See Instructions, # 1 each, Refills 0, Tot. 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 [place] 4, 22had surgery 2011 23sx pending 24had sx 25seeing ENT 26surgery 1991 27MRI 2006 28possible ITP 29monitor 30Tubular adenoma 2014 Social History Social History Type Response Smoking Status Former smoker; Tobac co use times per day: smoked < 1/2 PPD; Started at age: 18; Stopped at age: 65; entered on: 12/23/13 Sex
--- OUTSIDE RECORDS SUMMARY | 2022-12-09 11:30 | XMS_ITS | Continuity of Care Document ---
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 #[id number], 168, cm, :43:00 EDT, Height, 72.7, kg, [...] 1 Refills, Maintenance, 03/06/20 15:49:00 EDT, Tablet, [facility], 168, cm, 12/06/19 13:53:00 EDT, Height Start Date: 03/06/20 Stop Date: 09/02/20 Status: Ordered omeprazole 20 mg oral enteric coated capsule 1 capsule = 20 mg, By Mouth, Daily, before breakfast, # 90 capsule, 1 Refills, Maintenance, 08/17/20 15:28:00 EDT, EC Capsule, 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 [place] 4, 22had surgery 2011 23sx pending 24had sx 25seeing ENT 26surgery 1991 27MRI 2006 28possible ITP 29monitor 30Tubular adenoma 2014 Social History Social History Type Response Smoking Status Former smoker; Tobac co use times per day: smoked < 1/2 PPD; Started at age: 18; Stopped at age: 65; entered on: 12/23/13 Sex
--- OUTSIDE RECORDS SUMMARY | 2022-12-09 11:30 | XMS_ITS | Continuity of Care Document ---
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 Name Role Phone Luis RICHARD, Kilo Pendleton Primary Care Physician [phone] Encounter [facility] Date(s): 10/06/20 - 11/16/[address] [address]- Attending Physician: Dennis Mendoza MD Admitting Physician: Dennis Mendoza MD Allergies, Adverse Reactions, Alerts Substance Reaction [...] 2Admin Note: VIS-GIVEN 3Result Comment: [02/28/2017] [facility] [place]: [id number] 4Location History: [facility] 5Admin Note: VIS 12/18/2010 [...] 10/30/20 8:19:00 EDT, Route to Pharmacy Electronically, [id number], 168, cm, :43:00 EDT, Height, 72.7, kg, [...] 1 Refills, Maintenance, 03/06/20 15:49:00 EDT, Tablet, [facility], 168, cm, 12/06/19 13:53:00 EDT, Height Start Date: 03/06/20 Stop Date: 09/02/20 Status: Ordered omeprazole 20 mg oral enteric coated capsule 1 capsule = 20 mg, By Mouth, Daily, before breakfast, # 90 capsule, 1 Refills, Maintenance, 08/17/20 15:28:00 EDT, EC Capsule, [facility] #[id number], 168, cm, 07/17/20 14:04:00 EST, Height Start [...] cath September 2020 ef 35%(Confirmed) 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 [place] 4, 22had surgery 2011 23sx pending 24had sx 25seeing ENT 26surgery 1991 27MRI 2006 28possible ITP 29monitor 30Tubular adenoma 2014 Vital Signs Most recent to oldest [Reference Range]: 1 Height 167.6 cm (10/12/20 9:18 AM) Weight 72.7 kg (10/12/20 9:18 AM) Body Mass Index [18.5-24.99] 25.88 *H* (10/12/20 9:18 AM) Dry Weight 72.7 kg (10/12/20 9:18 AM) Weight Obtained Via Patient/family state d (10/12/20 9:18 AM) Dry Weight Obtained Via Patient/family s tated (10/12/20 9:18 AM) Social History Social History Type Response Smoking Status Former smoker; Tobac co use times per day: smoked < 1/2 PPD; Started at age: 18; Stopped at age: 65; entered on: 12/23/13 Sex
--- OUTSIDE RECORDS SUMMARY | 2022-12-09 11:30 | XMS_ITS | Continuity of Care Document ---
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: [id number] [facility] 5Admin Note: VIS 12/18/2010 [...] opioid drug. Start Date: 11/07/20 Status: Ordered amiodarone 200 mg oral tablet 200 mg, 1, tablet, By Mouth, 2 times a day, Refills 0, Maintenance, 11/07/20 11:28:00 EDT, Partial fill upon patient request if the prescription is for a schedule II opioid drug. Start Date: 11/07/20 Status: Ordered aspirin 81 mg oral enteric [...] opioid drug. Start Date: 11/07/20 Status: Ordered Docusate Sodium Capsule 100 mg, 1, capsule, By Mouth, 2 times a day, Refills 0, Maintenance, 11/07/20 11:28:00 EDT, Partialfill upon patient request if the prescription is for a schedule II opioid drug. Start Date: 11/07/20 Status: Ordered Duoneb Inhalation Solution 1, vials, BAND Nebulizer, Every 4 hours, PRN, Refills 0, Maintenance, 11/07/20 11:28:00 EDT, Inhalation Solution Start Date: 11/07/20 Status: Ordered gabapentin 100 mg oral capsule 100 mg, Capsule, By Mouth, 11/07/20 9:00:00 EDT Start Date: 11/07/20 Stop Date: 11/07/20 Status: Completed lamotrigine 25 mg oral tablet 25 mg, 1, tablet, By Mouth, 2 times a day, # 180 tablet, Refills 1, Tot. Refills 1, Maintenance, 10/30/20 8:19:00 EDT, Route to Pharmacy Electronically, [facility] #[id number], 168, cm, :43:00 EDT, Height, 72.7, kg, 10/12/20 9:18:00 EDT... Start Date: 10/30/20 Status: Ordered metFORMIN 1000 mg oral tablet 1 tablet = 1,000 mg, By Mouth, 2 times a day, with meals, # 180 tablet, 1 Refills, Maintenance, 03/06/20 15:49:00 EDT, Tablet, [facility], 168, cm, 12/06/19 13:53:00 EDT, Height Start Date: 03/06/20 Stop Date: 09/02/20 Status: Ordered omeprazole 20 mg oral enteric coated capsule 1 capsule = 20 mg, By Mouth, Daily, before breakfast, # 90 capsule, 1 Refills, Maintenance, 08/17/20 15:28:00 EDT, EC Capsule, [facility] #[id number], 168, cm, 07/17/20 14:04:00 EST, Height Start Date: 08/17/20 Stop Date: 02/13/21 Status: Ordered oxyCODONE 10 mg oral tablet 1 tablet = 10 mg, By Mouth, Every 6 hours, PRN Pain , Severe, for 3 days, # 12 tablet, 0 Refills, Acute 11/10/20 11:27:00 EDT, 11/07/20 11:27:00 EDT, Tablet, Partial fill upon patient request if the prescription is for a schedule II opioid drug. Start Date: 11/07/20 Stop Date: 11/10/20 Status: Ordered OxyCODONE IR Tablet 10 mg, Tablet, By Mouth, Every 4 hours, (for use after extubation), PRN for Pain , Severe, Routine,10/30/20 13:37:00 EDT Start Date: 10/30/20 Stop Date: 11/07/20 Status: Discontinued Plavix 75 mg oral tablet 75 mg, 1, tablet, By Mouth, Daily, Refills 0, Maintenance, 11/07/20 11:28:00 EDT, Partial fill uponpatient request if the prescription is for a schedule II opioid drug. 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 [place] 4, 22had surgery 2011 23sx pending 24had sx 25seeing ENT 26surgery 1991 27MRI 2006 28possible ITP 29monitor 30Tubular adenoma 2014 Procedures Procedure Date Related Diagnosis Body Site Status CABG x 3 - Coronary artery b ypass grafts x 3 CABG x 3 (ALVAREZ-mid LAD, SVG-PDA, SVG-diag) 1 10/30/20 Completed Cardiac catheterization ef 3 5% lad stent occludec RCA 99% 10/20/20 Completed 1CABG x 3 (ALVAREZ-mid LAD, SVG-PDA, SVG-diag) Results Radiology Reports * Exam Date Time Procedure Performing Provider Status 11/04/20 9:02 AM Chest Portable Scarlet Oliva; Auth (Verified) Notes: (Chest Portable) Reason For Exam: crackles left base; 2L NC;Follow-Up Pleural Effusion RESULT: Chest Portable Chest Portable Reason: Follow-Up Pleural Effusion; crackles left base; 2L NC; Clinical Question(s): Pleural Effusion COMPARISON: 11/01/2020 FINDINGS: LINES AND TUBES: None. LUNGS AND PLEURA: Clear lungs. Normal pulmonary vascularity. Small loculated effusion in the left hemithorax, similar to prior. No pneumothorax. HEART, MEDIASTINUM AND MO: Heart is normal in size. Normal upper mediastinal and hilar contour. BONES AND SOFT TISSUES: No acute abnormality. IMPRESSION: Small residual loculated effusion on the left, unchanged. WSN: [id number] Ordering Physician: Daniel Posada Dictated By: Adriana Lara MD Dictated Date/Time: 11/04/20 12:53 p Reviewed By: Adriana Lraa MD Signed By: Adriana Lara MD Signed Date/Time: 11/04/20 12:53 pm Transcribed By: LUCAS Transcribed Date/Time: 11/04/20 12:50 pm * Exam Date Time Procedure Performing Provider Status 11/01/20 10:52 AM Chest Portable Keshawn Oliva; Auth (Verified) Notes: (Chest Portable) Reason For Exam: S/P Cardiac Surgery RESULT: Chest Portable Chest Portable Reason: S P Cardiac Surgery; Clinical Question(s): Pleural Effusion COMPARISON: 10/31/2020 FINDINGS: LINES AND TUBES: Left apical chest tube. LUNGS AND PLEURA: Clear lungs. Normal pulmonary vascularity. Partial atelectasis of the left lower lobe is slightly improved. There is mild thickening of the left pleural space and opacity in the right mid zone which likely represents small residual pleural fluid. No pneumothorax. HEART, MEDIASTINUM AND MO: Heart is normal in size. Normal upper mediastinal and hilar contour. BONES AND SOFT TISSUES: No acute abnormality. IMPRESSION: Small residual left pleural fluid. A lateral view would be helpful to localize possible fluid in the fissure. Partial atelectasis left lower lobe is slightly improved. WSN: [id number] Ordering Physician: Hilario Rivera Dictated By: Adriana Lara MD Dictated Date/Time: 11/01/20 11:42 a Reviewed By: Adriana Lara MD Signed By: Adriana Lara MD Signed Date/Time: 11/01/20 11:42 am Transcribed By: LUCAS Transcribed Date/Time: 11/01/20 11:41 am * Exam Date Time Procedure Performing Provider Status 10/31/20 5:58 AM Chest Portable Elle Verduzco (Verified) Notes: (Chest Portable) Reason For Exam: S/P Cardiac Surgery RESULT: Chest Portable Chest Portable REASON: S P Cardiac Surgery; Clinical Question(s): Postop COMPARISON: 10/30/2020. FINDINGS: LINES AND TUBES: Interval removal of an endotracheal and enteric tube. Unchanged 2 mediastinal and a left-sided thoracostomy tube terminating at the apex. Unchanged right IJ Morton-Jae catheter overlying the right main pulmonary artery. Suspect multiple epicardial pacer wires. LUNGS AND PLEURA: Unchanged left basilar pleural-parenchymal disease. Normal pulmonary vascularity. No pneumothorax. HEART, MEDIASTINUM AND MO: Unchanged cardiovascular mediastinal contour. Median sternotomy wires. BONES AND SOFT TISSUES: No acute abnormality. IMPRESSION: Unchanged left basilar opacity, likely small effusion and adjacent atelectasis. Lines and tubes as described above. I have personally reviewed the images and I agree with this report. WSN: [id number] Ordering Physician: Sanjana Monterroso Dictated By: Stevie Woodall DO Dictated Date/Time: 10/31/20 9:56 am Reviewed By: Ugo Bailon MD Signed By: Ugo Bailon MD Signed Date/Time: 10/31/20 10:01 am Transcribed By: CSEliceo Transcribed Date/Time: 10/31/20 9:25 am * Exam Date Time Procedure Performing Provider Status 10/30/20 4:38 PM Chest Portable Terese Li (Verified) Notes: (Chest Portable) Reason For Exam: S/P Cardiac Surgery RESULT: Chest Portable Chest Portable CLINICAL INDICATION: Reason: S P Cardiac Surgery; Clinical Question(s): Other:; Cardiac Tamponade; Special Instructions: On Admission to [facility] COMPARISON: Prior radiographs, most recently 10/30/2020. FINDINGS: There is an endotracheal tube with tip about 1.5 cm above the jaren. Enteric tube extends into the stomach, tip off the film. There is a right internal jugular Morton-Jae catheter with tip in the right main pulmonary artery. There appears to be 2 mediastinal drains and 2 left-sided chest tubes, one at the lung base and one at the lateral apex. Intact median sternotomy wires are noted. The cardiac silhouette is within normal limits. Mediastinal contour is grossly normal. There are low lung volumes with mild right basilar atelectasis and trace right pleural effusion. Dense left basilar opacity is also seen obscuring the diaphragm. There is no definite pneumothorax. No acute osseous abnormality is noted. IMPRESSION: Tip of the ET tube is only 1.5 cm above the jaren. This should be pulled back about 2 cm to be in optimal position. Other lines and tubes as described. Low lung volumes with minimal right pleural effusion and adjacent atelectasis. Left basilar opacitylikely represents some combination of effusion and adjacent atelectasis as well. No definite pneumothorax. WSN: [id number] Ordering Physician: Paxton Fay Dictated By: Elin Sun MD Dictated Date/Time: 10/30/20 4:50 pm Reviewed By: Elin Sun MD Signed By: Elin Sun MD Signed Date/Time: 10/30/20 4:50 pm Transcribed By: LUCAS Transcribed Date/Time: 10/30/20 4:48 pm * Exam Date Time Procedure Performing Provider Status 10/30/20 1:27 AM Chest Portable Cate Rai; Auth (Verified) Notes: (Chest Portable) Reason For Exam: Preop RESULT: Chest Portable Chest Portable INDICATION: Reason: Preop; Clinical Question(s): Preop COMPARISON: 10/19/2020. FINDINGS: LINES AND TUBES: None. LUNGS AND PLEURA: The lungs are clear and the pulmonary vascularity is normal. No effusion or pneumothorax. HEART, MEDIASTINUM AND MO: Normal. BONES AND SOFT TISSUES: No acute abnormality. IMPRESSION: No acute cardiopulmonary disease. WSN: [id number] Ordering Physician: Elsie Irving Dictated By: Destiny Mixon MD Dictated Date/Time: 10/30/20 8:18 am Reviewed By: Destiny Mixon MD Signed By: Destiny Mxion MD Signed Date/Time: 10/30/20 8:18 am Transcribed By: LUCAS Transcribed Date/Time: 10/30/20 8:15 am * Exam Date Time Procedure Performing Provider Status 10/19/20 5:50 PM Chest Portable Erna Benites; Auth ( Verified) Notes: (Chest Portable) Reason For Exam: Chest Pain;Other: RESULT: Chest Portable Chest Portable Reason: Other:; Chest Pain; Clinical Question(s): CHF COMPARISON: None. FINDINGS: LINES AND TUBES: External monitoring leads. LUNGS AND PLEURA: LEFT suprahilar and RIGHT infrahilar peribronchial reticular opacities. No pleural effusion. No pneumothorax. HEART, MEDIASTINUM AND MO: Heart is normal in size. Normal upper mediastinal and hilar contour. BONES AND SOFT TISSUES: No acute abnormality. IMPRESSION: LEFT suprahilar and RIGHT infrahilar peribronchial reticular opacities. Could represent pulmonary edema versus multifocal infection. No evidence of pleural effusion on this AP view. WSN: [id number] Ordering Physician: Siva Amor Dictated By: Gudelia Moran MD Dictated Date/Time: 10/19/20 5:55 pm Reviewed By: Gudelia Moran MD Signed By: Gudelia Moran MD Signed Date/Time: 10/19/20 5:55 pm Transcribed By: LUCAS Transcribed Date/Time: 10/19/20 5:54 pm Vital Signs Most recent to oldest [Reference Range]: 1 2 3 4 Height 168 cm (11/07/20 11:29 AM) 168 cm (11/07/20 9:02 AM) 168 cm (11/07/20 4:58 AM) Weight 70.5 kg (11/07/20 4:59 AM) 70.4 kg (11/06/20 4:49 AM) 69.8 kg (11/05/20 7:39 AM) Oxygen Saturation [94-100 %] 98 % (11/07/20 9:02 AM) 97 % (11/07/20 4:58 AM) 100 % (11/07/20 12:19 AM) Pulse Rate [55-90 bpm] 79 bpm (11/07/20 11:29 AM) 77 bpm (11/07/20 9:02 AM) 74 bpm (11/07/20 4:58 AM) Body Mass Index [18.5-24.99] 25.51 *H* (10/30/20 6:09 AM) 25.51 *H* (10/29/20 2:45 AM) Blood Pressure [90-138/55-84 mm Hg] 93/71mm Hg (11/07/20 11:29 AM) 139/76mm Hg *H* (11/07/20 9:02 AM) 129/56mm Hg (11/07/20 4:58 AM) Respiratory Rate [16-30 br/min] 18 br/min (11/07/20 1:10 PM) 18 br/min (11/07/20 11:29 AM) 18 br/min (11/07/20 9:50 AM) 18 br/min (11/07/20 9:50 AM) Temperature [96.8-100.4 DegF] 99.2 DegF (11/07/20 11:29 AM) 97.9 DegF (11/07/20 9:02 AM) 98.9 DegF (11/07/20 4:58 AM) Liters per Minute 0 L/min (11/06/20 6:03 PM) 0 L/min (11/06/20 11:43 AM) 2 L/min (11/05/20 7:37 AM) Mode of Delivery (Oxygen) Room air (11/07/20 11:29 AM) Room air (11/07/20 9:02 AM) Room air (11/07/20 4:58 AM) Blood pressure sites Arm, right (11/07/20 11:29 AM) Arm, right (11/07/20 9:02 AM) Arm, left (11/07/20 4:58 AM) Temperature Route Oral (11/07/20 11:29 AM) Oral (11/07/20 9:02 AM) Oral (11/07/20 4:58 AM) Weight Obtained Via Bed scale (11/07/20 4:59 AM) Bed scale (11/06/20 4:49 AM) Standing scale (11/05/20 7:39 AM) Social History Social History Type Response Smoking Status Former smoker; Tobac co use times per day: smoked < 1/2 PPD; Started at age: 18; Stopped at age: 65; entered on: 12/23/13 Sex
[2022-12-09 11:31] LABS: B Type Natriuretic Peptide 89 pg/mL (<100)
--- OUTSIDE RECORDS SUMMARY | 2022-12-09 11:31 | XMS_ITS | Continuity of Care Document ---
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 Name Role Phone Luis RICHARD, Kilo Pendleton Primary Care Physician [place] [facility](s): 07/06/21 - 08/05/21 [facility] Adult [address] [place] [address]- Attending Physician: Admtr, Ar8 Admitting Physician: Admtr, Ar8 Referring Physician: Admtr, Ar8 Allergies, Adverse Reactions, Alerts Substance Reaction Severity Status Duloxetine 1 rash Active 1GI Immunizations Given and Recorded Vaccine Date Status Refusal Reason SARS-CoV-2 mRNA ([id number]) vax 1 06/29/21 Given influenza virus vaccine, [...] Vaccine (oldterm) 14 03/11/06 Given 1Result Comment: [facility]-[id number] 2Result Comment: [facility]: [id number] 3Result Comment: [02/28/2017] HD [facility]: [id number] [facility] 5Admin Note: VIS 12/18/2010 [...] 0 Refills, Maintenance, 07/17/21 12:08:00 EST, Tablet, [facility] #[id number], Partial fill upon patient request if the [...] tablet, 3 Refills, Maintenance, 02/05/21 8:58:00 EDT, [facility] #[id number], 168, cm, 01/30/21 11:10:00 EDT, Height, 72.7, kg, 10/12/20 9:18:00 EDT, Dry Weight Start Date: 02/05/21 Status: Ordered baclofen 10 mg oral tablet 0.5, tablet, By Mouth, 3 times a day, # 45 tablet, Refills 0, Tot. Refills 0, 06/01/21 14:08:00 EST, Route to Pharmacy Electronically, [facility] #[id number], 168, cm, 03/19/21 15:01:00 EDT, Height, 72.7, kg, 10/12/20 9:18:00 EDT, Dry Weight Start Date: 06/01/21 Status: Ordered clopidogrel 75 mg oral tablet 75 mg, 1, tablet, By Mouth, Daily, Continue medication through 09/2021 unless otherwise instructed.,# 90 tablet, Refills 3, Tot. Refills 3, Maintenance, 12/28/20 9:56:00 EDT, Route to Pharmacy Electronically, [facility] #[id number], Partial fill... Start Date: 12/28/20 Status: Ordered Coreg 3.125 mg oral tablet 3.125 mg, 1, tablet, By Mouth, 2 times a day, # 60 tablet, Refills 11, Tot. Refills 11, Maintenance, 08/01/21 9:34:00 EST, Route to Pharmacy Electronically, [facility] #[id number], Partial fill upon patient request if the prescription is for a sc... Start Date: 08/01/21 Stop Date: 07/27/22 Status: Ordered docusate sodium 100 mg oral capsule 100 mg, 1, capsule, By Mouth, 2 times a day, # 60 capsule, Refills 6, Tot. Refills 6, Maintenance, 01/03/21 8:19:00 EDT, Route to Pharmacy Electronically, [facility] #[id number], Partial fill upon patient request if the prescription is for a sche... Start Date: 01/03/21 Status: Ordered ezetimibe 10 mg oral tablet 1 tablet = 10 mg, By Mouth, Daily, take with atorvastatin, # 30 tablet, 11 Refills, Maintenance, 12/03/20 16:45:00 EDT, Tablet, [facility] #[id number], Partial fill upon patient request if the prescription is for a schedule II opioid drug., 168,... Start Date: 12/03/20 Status: Ordered Farxiga 5 mg oral tablet 1 tablet = 5 mg, By Mouth, Daily, # 30 tablet, 6 Refills, Maintenance, 07/06/21 13:16:00 EST, Tablet, [facility] #[id number], Partial fill upon patient request if the [...] 11 Refills, Maintenance, 12/04/20 9:56:00 EDT, Powder, [facility] #[id number], Partial fill upon patient request if the prescription i... Start Date: 12/04/20 Status: Ordered isosorbide mononitrate 30 mg oral tablet, extended release 1 tablet, By Mouth, Daily in AM, # 30 tablet, 0 Refills, [facility] #[id number], 168, cm, 01/10/21 10:40:00 EDT, Height, 72.7, kg, 10/12/20 9:18:00 EDT, Dry Weight Start Date: 01/28/21 Status: Ordered lamotrigine 25 mg oral tablet 25 mg, 1, tablet, By Mouth, 2 times a day, # 180 tablet, Refills 1, Tot. Refills 1, Maintenance, 07/11/21 13:45:00 EST, Route to Pharmacy Electronically, [facility] #[id number], 168, cm, 07/06/21 13:13:00 EST, Height, 72.7, [...] 02/21/21 16:10:00 EDT, Route to Pharmacy Electronically, [facility] #[id number], Partial fill upon patient request if the prescription is for a schedule II opi... Start Date: 02/21/21 Status: Ordered nitroglycerin 0.3 mg sublingual tablet 1 tablet = 0.3 mg, Sublingual, Every 5 minutes, PRN as needed for chest pain, not to exceed 3 doses/15 min--if pain persists, seek medical attention, # 100 tablet, 0 Refills, Maintenance, 12/04/20 10:05:00 EDT, Tablet, [facility] #[id number], Par... Start Date: 12/04/20 Status: Ordered omeprazole 20 mg oral enteric coated capsule 1 capsule = 20 mg, By Mouth, Daily, before breakfast, # 90 capsule, 0 Refills, Maintenance, 07/11/21 9:03:00 EST, EC Capsule, [facility] #[id number], 168, cm, 07/06/21 13:13:00 EST, Height, 72.7, kg, 10/12/20 9:18:00 EDT, Dry Weight Start Date: 07/11/21 Stop Date: 10/09/21 Status: Ordered oxyCODONE 10 mg oral tablet 1 tablet = 10 mg, By Mouth, Every 4 hours, PRN as needed for pain, chronic back pain, # 168 tablet,0 Refills, Maintenance, 07/17/21 9:50:00 EST, Tablet, [facility] #[id number], Partial fill upon patient request if the prescription is for a sched... 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 [place] 4, 22had surgery 2011 23sx pending 24had sx 25seeing ENT 26surgery 1991 27MRI 2006 28possible ITP 29monitor 30Tubular adenoma 2014 Procedures Procedure Date Related Diagnosis Body Site Status Computed tomography, abdomen ; without contrast material 1 07/16/11 Completed Radiologic examination, ches t, 2 views, frontal and lateral; 2 07/16/11 Completed 1Impression: 1. No evidence of nephrolithiasis, hydronephrosis, perinephric inflammation, ureteral or bladder calculi. 2. 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 No adjacent inflammation or obstruction. 3. Scattered colonic diverticula without active inflammation. Normal appendix. 4. Marked prostatic enlargement. 2nad Social History Social History Type Response Smoking Status Former smoker; Tobac co use times per day: smoked < 1/2 PPD; Started at age: 18; Stopped at age: 65; entered on: 12/23/13 Sex
--- OUTSIDE RECORDS SUMMARY | 2022-12-09 11:31 | XMS_ITS | Continuity of Care Document ---
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 Date(s): 11/21/22 - 11/28/22 [facility] [place], operated by [facility] [address] [place] [address]- Encounter Diagnosis Benign Essential Hypertension(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) - 11/21/22 Diabetes mellitus with renal manifestation(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) - 11/21/22 Failed back syndrome sx 1991(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) - 11/21/22 Syncope(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) - 11/21/22 Attending Physician: Not on Staff, Attending MD Referring Physician: Leticia Foster NP Allergies, Adverse Reactions, Alerts Substance Reaction Severity Status Duloxetine 1 rash Active 1GI Immunizations Given and Recorded Vaccine Date Status Refusal Reason pneumococcal 20-valent conjugate vaccine 08/27/22 Recorded [id number] 12y+ bivalent booster vax 08/27/22 Recorded influenza [...] inactivated 6 08/01/10 Gi radha SARS-CoV-2 mRNA ([id number]) vax 7 06/29/21 Given SARS-CoV-2 (COVID-19) mRNA [...] Vaccine (oldterm) 15 03/11/06 Given 1Result Comment: [facility]-[id number] 2Result Comment: [facility]: [id number] 3Result Comment: [02/28/2017] HD [facility]: [id number] [facility] 5Admin Note: VIS 12/18/2010 6Admin Note: VIS given 01/02/10 7Result Comment: [facility]-[id number] 8Admin Note: VIS 9Admin Note: VIS-GIVEN 10Admin Note: vis 03/03 11Result Comment: error 12Admin Note: hep A #1 13Admin Note: vis 01/01 14Admin Note: VIS 15Admin Note: vis-given Medications albuterol 90 mcg/inh inhalation powder 2 puffs = 180 mcg, Inhalation, Every 4 hours, PRN as needed, # 1 each, 0 Refills, Maintenance, 10/07/22 13:35:00 EDT, Powder, [facility] #[id number], 2 puffs Inhalation Every 4 hours,PRN:as needed, 167.6, cm, 10/07/22 13:14:00 EDT, Height, 74, kg... Start Date: 10/07/22 Status: Ordered amLODIPine 5 mg oral tablet 1 tablet = 5 mg, By Mouth, Daily, # 90 tablet, 1 Refills, Maintenance, 10/07/22 21:43:00 EDT, Tablet, [facility] #[id number], 167.6, cm, 10/07/22 13:14:00 EDT, Height, 74, [...] tablet, 1 Refills, Maintenance, 10/07/22 21:43:00 EDT, [facility] #[id number], 167.6, cm, 10/07/22 13:14:00 EDT, Height, 74, kg, 04/06/22 1:20:00 EST, Dry Weight Start Date: 10/07/22 Status: Ordered Coreg 6.25 mg oral tablet 6.25 mg, 1, tablet, By Mouth, 2 times a day, # 60 tablet, Refills 0, Tot. Refills 0, Maintenance, 10/07/22 21:43:00 EDT, Route to Pharmacy Electronically, [facility] #[id number], 167.6, cm, 10/07/22 13:14:00 EDT, Height, 74, kg, 04/06/22 1:20:00... Start Date: 10/07/22 Status: Ordered ezetimibe 10 mg oral tablet 1 tablet = 10 mg, By Mouth, Daily, # 90 tablet, 1 Refills, Maintenance, 11/22/22 11:47:00 EDT, Tablet, [facility] #[id number], 168, cm, 11/21/22 9:25:00 EDT, Height, 75.2, kg, 11/09/22 22:57:00 EDT, Dry Weight Start Date: 11/22/22 Stop Date: 05/21/23 Status: Ordered Farxiga 10 mg oral tablet 1 tablet = 10 mg, By Mouth, Daily, Increased strength, # 30 tablet, 0 Refills, Maintenance, 01/16/22 9:53:00 EDT, Tablet, [facility] #[id number], Increased strength, 168, cm, 12/26/21 15:45:00 EDT, [...] 05/02/22 13:11:00 EST, Route to Pharmacy Electronically, [facility] #[id number], Partial fill upon patient request if the prescription is for a schedule... Start Date: 05/02/22 Stop Date: 10/29/22 Status: Ordered lisinopril 5 mg oral tablet 5 mg, 1, tablet, By Mouth, Daily, # 90 tablet, Refills 3, Tot. Refills 3, Maintenance, 03/10/22 22:37:00 EDT, Route to Pharmacy Electronically, [facility] #[id number], Partial fill upon patient request if the prescription is for a schedule II opi... Start Date: 03/10/22 Status: Ordered metFORMIN 500 mg oral tablet See Instructions, 1 tablet by mouth daily x 1 week then increase to 1 tablet 2 times a day, # 180 tablet, 0 Refills, Acute 01/19/23 12:00:00 EDT, 10/07/22 21:12:00 EDT, Tablet, [facility] #[id number], Partial fill upon patient request if the pres... Start Date: 10/07/22 Stop Date: 01/19/23 Status: Ordered nitroglycerin 0.3 mg sublingual tablet 1 tablet = 0.3 mg, Sublingual, Every 5 minutes, PRN as needed for chest pain, not to exceed 3 doses/15 min--if pain persists, seek medical attention, # 100 tablet, 0 Refills, Maintenance, 12/04/20 10:05:00 EDT, Tablet, [facility] #[id number], Par... Start Date: 12/04/20 Status: Ordered oxyCODONE 10 mg oral tablet 1 tablet = 10 mg, By Mouth, Every 4 hours, PRN as needed for pain, # 168 tablet, 0 Refills, Maintenance, 11/06/22 6:56:00 EDT, Tablet, [facility] #[id number], Partial fill upon patient request if the prescription is for a schedule II opioid drug.... 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 [place] 4, 15surgery 1991 16MRI 2006 17possible ITP 18monitor 19Tubular adenoma 2014 Diagnosis Diagnosis Type Effective Dates Health Status Clinical Service Informant Benign Essential Hypertension 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 11/21/22 Diabetes mellitus with renal manifestation 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 11/21/22 Failed back syndrome sx 1991 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 11/21/22 Syncope 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 11/21/22 Non-Specified Vital Signs Most recent to oldest [Reference Range]: 1 Height 168 cm (11/21/22 9:25 AM) Weight 71.6 kg (11/21/22 9:25 AM) Oxygen Saturation [94-100 %] 95 % (11/21/22 9:25 AM) Pulse Rate [55-90 bpm] 66 bpm (11/21/22 9:25 AM) Body Mass Index [18.5-24.99 kg/m2] 25.37 kg/m2 *H* (11/21/22 9:25 AM) Blood Pressure [90-138/55-84 mm Hg] 136/ 76mm Hg (11/21/22 9:25 AM) Temperature [96.8-100.4 DegF] 97.9 DegF (11/21/22 9:25 AM) Mode of Delivery (Oxygen) Room air (11/21/22 9:25 AM) Blood pressure sites Arm, left (11/21/22 9:25 AM) Temperature Route Oral (11/21/22 9:25 AM) Weight Obtained Via Standing scale (11/21/22 9:25 AM) Social History Social History Type Response Smoking Status Former smoker; Tobac co use times per day: smoked < 1/2 PPD; Started at age: 18; Stopped at age: 65; entered on: 12/23/13 Sex Note * Kirti Busby: PERFORM, SIGN, VERIFY Event Display: Patient Education/Instruction Authored Date: [id number] [facility] *BMP Radha Dangelo Clinical Summary Name OSCAR MURRAY Age 77 Years 1945 PCP Leticia Foster NP PCP [facility]# [phone] Visit Date 11/21/2022 08:54:00 Additional Instructions: Scheduled Appointments?? Future Appointments ?No Future Appointments Scheduled Follow-Up Instructions ?? With: Address: When: Leticia Foster NP Comments: for annual exam in Jan-??February Diagnosis Medications: Please continue your medications until treatment is completed or stopped by your provider. Discuss any questions related to medications with your provider. Medications to Continue with No Changes These medications were not printed or sent to your pharmacy Albuterol (albuterol 90 mcg/inh inhalation powder) 2 puff(s) Inhalation every 4 hours as needed. Refills: 0. Next Dose: Amlodipine (amLODIPine 5 mg oral tablet) 1 tab(s) Oral Daily. Refills: 1. Next Dose: Ascorbic Acid (Vitamin C 500 mg oral tablet) 1 tab(s) Oral Daily. Next Dose: Aspirin (aspirin 81 mg oral enteric coated capsule) 1 capsule Oral Daily. Refills: 0. Next Dose: Atorvastatin (atorvastatin 80 mg oral tablet) 1 tab(s) Oral Daily. Refills: 1. Next Dose: Carvedilol (Coreg 6.25 mg oral tablet) 1 tab(s) Oral twice a day. Refills: 0. Next Dose: Cholecalciferol (Vitamin D3 2000 intl units oral capsule) 1 capsule Oral Daily for 90 Days. Refills: 0. Next Dose: dapagliflozin (Farxiga 10 mg oral tablet) 1 tab(s) Oral Daily. Increased strength. Refills: 0. Next Dose: Durable Medical Equipment (Freestyle Lancets) use as directed for Type 2 Diabetes Mellitus to test blood sugar BID E11.9 PHILLIP-lifetime. Refills: 5. Next Dose: Durable Medical Equipment (Freestyle Lite Test Strips) use as directed for Type 2 Diabetes Mellitus to test blood sugar BID E11.9 PHILLIP-lifetime. Refills: 5. Next Dose: Ezetimibe (ezetimibe 10 mg oral tablet) TAKE 1 TABLET BY MOUTH DAILY TAKE WITH ATORVASTATIN. Next Dose: Isosorbide Mononitrate (isosorbide mononitrate 60 mg oral tablet, extended release) 1 tab(s) Oral Daily in the morning for 30 Days. Refills: 5. Next Dose: Lisinopril (lisinopril 5 mg oral tablet) 1 tab(s) Oral Daily. Refills: 3. Next Dose: Metformin (metFORMIN 500 mg oral tablet) 1 tablet by mouth daily x 1 week then increase to 1 tablet2 times a day. Refills: 0. Next Dose: Nitroglycerin (nitroglycerin 0.3 mg sublingual tablet) 1 tab(s) Sublingual every 5 minutes as needed as needed for chest pain. not to exceed 3 doses/15 min--if pain persists, seek medical attention. Refills: 0. Next Dose: Oxycodone (oxyCODONE 10 mg oral tablet) 1 tab(s) Oral every 4 hours as needed as needed for pain. Refills: 0. Next Dose: Pantoprazole (pantoprazole 40 mg oral delayed release tablet) 1 tab(s) Oral Daily. Refills: 2. Next Dose: Allergy Info:?? Duloxetine Medications Given This Visit Future Orders ?No future orders Vital Signs Height 168 cm Weight 71.6 kg BMI 25.37 kg/m2 Blood Pressure 136 mm Hg/76 mm Hg Temperature 97.9 DegF Pulse Rate 66 bpm Respiratory Rate 02 Sat Mode of Delivery 95 %/Room air You can now view a summary of your hospital visit from the comfort of your home through a free online portal called [employer] ([email or web address]). Fuel ([email or web address]) is a website that allows you to securely view your medical information including discharge summary, medications and follow-up visits. ??You can alsosend a secure electronic message to your doctor???s office to request appointments, renew medications or just ask a question. You can enroll at [email or web address] or register during your next office visit. [...] primary care provider, you may find a [facility] provider by calling [facility] at [phone]. For information about the plan of care [...] Care Nurse Name: Leticia Foster NP Position: S PCO Associate Professional Member Role: PCP Address: Address: [address] [place] [id number] Name: Namita Barajas RN Position: S RN Member Role: Primary Care Nurse Name: Tasha Back RN Position: [facility] RN Member Role: Primary Care Nurse Name: Margarita Serrano RN Position: [facility] RN Member Role: Primary Care Nurse Name: Devin Benites RN Position: [facility] RN Member Role: Primary Care Nurse Name: Betsy Millan RN Position: [facility] RN Member Role: Primary Care Nurse Name: Peggy Jansen RN Position: [facility] RN Member Role: Primary Care Nurse Name: Cate Pabon RN Position: [facility] AMB Nurse Member Role: Primary Care Nurse Name: Janette Jones RN Position: [facility] RN Member Role: Primary Care Nurse Name: Deanne Hayes RN Position: [facility] RN Member Role: Primary Care Nurse Name: Vianney Mcneill RN Position: [facility] RN Member Role: Primary Care Nurse Name: Cindy Evans LPN Position: [facility] RN Member Role: Primary Care Nurse Care Team Related Persons Name: INGE MURRAY Address: home [address] [place] [id number] Name: NIK BARTON Address: [place] [address]
--- OUTSIDE RECORDS SUMMARY | 2022-12-09 11:31 | XMS_ITS | Continuity of Care Document ---
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 Phone Leticia Foster NP Primary Care Physician [place] [facility] [place] [place] Date[place]s): 08/01/22 - 10/16/22 [facility] [address] [place] [address]- Attending Physician: Skylar Damon NP Admitting Physician: Nelson SIMS, Skylar Referring Physician: Leticia Foster NP Allergies, Adverse Reactions, Alerts Substance Reaction Severity Status Duloxetine 1 rash Active 1GI Immunizations Given and Recorded Vaccine Date Status Refusal Reason pneumococcal 20-valent conjugate vaccine 08/27/22 Recorded [id number] 12y+ bivalent booster vax 08/27/22 Recorded influenza [...] inactivated 6 08/01/10 Gi radha SARS-CoV-2 mRNA ([id number]) vax 7 06/29/21 Given SARS-CoV-2 (COVID-19) mRNA [...] (oldterm) 15 03/11/06 Given 1Result Comment: [facility]-[id number] 2Result Comment: [facility]: [id number] 3Result Comment: [02/28/2017] HD [facility]: [id number] 4[facility] 5Admin Note: VIS 12/18/2010 6Admin Note: VIS given 01/02/10 7Result Comment: [facility]-[id number] 8Admin Note: VIS 9Admin Note: VIS-GIVEN 10Admin Note: vis 03/03 11Result Comment: error 12Admin Note: hep A #1 13Admin Note: vis 01/01 14Admin Note: VIS 15Admin Note: vis-given Medications albuterol 90 mcg/inh inhalation powder 2 puffs = 180 mcg, Inhalation, Every 4 hours, PRN as needed, # 1 each, 0 Refills, Maintenance, 10/07/22 13:35:00 EDT, Powder, [facility] #[id number], 2 puffs Inhalation Every 4 hours,PRN:as needed, 167.6, cm, 10/07/22 13:14:00 EDT, Height, 74, kg... Start Date: 10/07/22 Status: Ordered amLODIPine 5 mg oral tablet 1 tablet = 5 mg, By Mouth, Daily, # 90 tablet, 1 Refills, Maintenance, 10/07/22 21:43:00 EDT, Tablet, [facility] #[id number], 167.6, cm, 10/07/22 13:14:00 EDT, Height, 74, [...] tablet, 1 Refills, Maintenance, 10/07/22 21:43:00 EDT, [facility] #[id number], 167.6, cm, 10/07/22 13:14:00 EDT, Height, 74, kg, 04/06/22 1:20:00 EST, Dry Weight Start Date: 10/07/22 Status: Ordered Coreg 6.25 mg oral tablet 6.25 mg, 1, tablet, By Mouth, 2 times a day, # 60 tablet, Refills 0, Tot. Refills 0, Maintenance, 10/07/22 21:43:00 EDT, Route to Pharmacy Electronically, [facility] #[id number], 167.6, cm, 10/07/22 13:14:00 EDT, Height, 74, kg, 04/06/22 1:20:00... Start Date: 10/07/22 Status: Ordered ezetimibe 10 mg oral tablet TAKE 1 TABLET BY MOUTH DAILY TAKE WITH ATORVASTATIN Start Date: 10/07/22 Status: Ordered Farxiga 10 mg oral tablet 1 tablet = 10 mg, By Mouth, Daily, Increased strength, # 30 tablet, 0 Refills, Maintenance, 01/16/22 9:53:00 EDT, Tablet, [facility] #[id number], Increased strength, 168, cm, 12/26/21 15:45:00 EDT, [...] 05/02/22 13:11:00 EST, Route to Pharmacy Electronically, [facility] #[id number], Partial fill upon patient request if the prescription is for a schedule... Start Date: 05/02/22 Stop Date: 10/29/22 Status: Ordered lisinopril 5 mg oral tablet 5 mg, 1, tablet, By Mouth, Daily, # 90 tablet, Refills 3, Tot. Refills 3, Maintenance, 03/10/22 22:37:00 EDT, Route to Pharmacy Electronically, [facility] #[id number], Partial fill upon patient request if the prescription is for a schedule II opi... Start Date: 03/10/22 Status: Ordered metFORMIN 500 mg oral tablet See Instructions, 1 tablet by mouth daily x 1 week then increase to 1 tablet 2 times a day, # 180 tablet, 0 Refills, Acute 01/19/23 12:00:00 EDT, 10/07/22 21:12:00 EDT, Tablet, [facility] #[id number], Partial fill upon patient request if the pres... Start Date: 10/07/22 Stop Date: 01/19/23 Status: Ordered nitroglycerin 0.3 mg sublingual tablet 1 tablet = 0.3 mg, Sublingual, Every 5 minutes, PRN as needed for chest pain, not to exceed 3 doses/15 min--if pain persists, seek medical attention, # 100 tablet, 0 Refills, Maintenance, 12/04/20 10:05:00 EDT, Tablet, [facility] #[id number], Par... 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 [place] 4, 14surgery 1991 15MRI 2006 16possible ITP [...] Care Nurse Name: Leticia Foster NP Position: [facility] PCO Associate Professional Member Role: PCP Address: Address: [address] [place] [address]- Name: Namita Barajas RN Position: S RN Member Role: Primary Care Nurse Name: Tasha Back RN Position: S RN Member Role: Primary Care Nurse Name: Margarita Serrano RN Position: S RN Member Role: Primary Care Nurse Name: Devin Beintes RN Position: [facility] RN Member Role: Primary Care Nurse Name: Betsy Millan RN Position: [facility] RN Member Role: Primary Care Nurse Name: Peggy Jansen RN Position: [facility] RN Member Role: Primary Care Nurse Name: Cate Pabon RN Position: [facility] PCO RN Member Role: Primary Care Nurse Name: Janette Jones RN Position: [facility] RN Member Role: Primary Care Nurse Name: Vianney Mcneill RN Position: [facility] RN Member Role: Primary Care Nurse Name: Cindy Evans LPN Position: [facility] RN Member Role: Primary Care Nurse Care Team Related Persons Name: INGE MURRAY Address: home [address] [place] [address] Name: NIK BARTON Address: [place] [address]
--- OUTSIDE RECORDS SUMMARY | 2022-12-09 11:31 | XMS_ITS | Continuity of Care Document ---
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 Role Phone Luis RICHARD, Kilo Pendleton Primary Care Physician [phone] Encounter [facility] Date(s): 01/15/21 - 02/14/21 [facility] [address] [place] [address]- Allergies, Adverse Reactions, Alerts Substance Reaction Severity [...] VIS 2Admin Note: VIS-GIVEN 3Result Comment: [02/28/2017] [facility]: [id number] 4[facility] 5Admin Note: VIS 12/18/2010 [...] tablet, 3 Refills, Maintenance, 02/05/21 8:58:00 EDT, [facility] #[id number], 168, cm, 01/30/21 11:10:00 EDT, Height, 72.7, [...] 2 Refills, Maintenance, 01/03/21 8:18:00 EDT, Tablet, [facility] #[id number], Partial fill upon patient request if the [...] 12/28/20 9:56:00 EDT, Route to Pharmacy Electronically, [facility] #[id number], Partial fill... Start Date: 12/28/20 Status: Ordered docusate sodium 100 mg oral capsule 100 mg, 1, capsule, By Mouth, 2 times a day, # 60 capsule, Refills 6, Tot. Refills 6, Maintenance, 01/03/21 8:19:00 EDT, Route to Pharmacy Electronically, [facility] #[id number], Partial fill upon patient request if the prescription is for a sche... Start Date: 01/03/21 Status: Ordered ezetimibe 10 mg oral tablet 1 tablet = 10 mg, By Mouth, Daily, take with atorvastatin, # 30 tablet, 11 Refills, Maintenance, 12/03/20 16:45:00 EDT, Tablet, [facility] #[id number], Partial fill upon patient request if the [...] Maintenance, DX: STROKE I63.9 LIFETIME NEED fax: [phone], 12/05/20 16:06:00 EDT, Supply Start Date: 12/05/20 Status: Ordered Incruse Ellipta 62.5 mcg/inh inhalation powder 1 each, Inhalation, Every 24 hours, doses should be taken at least 24 hours apart repaces spitriva,# 30 each, 11 Refills, Maintenance, 12/04/20 9:56:00 EDT, Powder, [facility] #[id number], Partial fill upon patient request if the prescription i... Start Date: 12/04/20 Status: Ordered isosorbide mononitrate 30 mg oral tablet, extended release 1 tablet, By Mouth, Daily in AM, # 30 tablet, 0 Refills, [facility] #[id number], 168, cm, 01/10/21 10:40:00 EDT, Height, 72.7, kg, 10/12/20 9:18:00 EDT, Dry Weight Start Date: 01/28/21 Status: Ordered isosorbide mononitrate 30 mg oral tablet, extended release 1 tablet, By Mouth, Daily in AM, # 30 tablet, 0 Refills, [facility] #[id number], 168, cm, 01/10/21 10:40:00 EDT, Height, 72.7, kg, 10/12/20 9:18:00 EDT, Dry Weight Start Date: 01/28/21 Status: Ordered lamotrigine 25 mg oral tablet 25 mg, 1, tablet, By Mouth, 2 times a day, # 180 tablet, Refills 1, Tot. Refills 1, Maintenance, 10/30/20 8:19:00 EDT, Route to Pharmacy Electronically, [facility] #[id number], 168, cm, 216:43:00 EDT, Height, 72.7, kg, [...] 1 Refills, Maintenance, 12/27/20 13:44:00 EDT, Tablet, [facility] #[id number], 168, cm, 12/01/20 9:19:00 EDT, Height, 72.7, kg, 10/12/20 9:18:00 EDT, Dry Weight Start Date: 12/27/20 Stop Date: 06/25/21 Status: Ordered metoprolol 25 mg oral tablet, extended release 12.5 mg, 0.5, tablet, By Mouth, Daily, # 30 tablet, Refills 2, Tot. Refills 2, Maintenance, 01/10/21 11:01:00 EDT, Route to Pharmacy Electronically, [facility] #[id number], Partial fill upon patient request if the prescription is for a schedule I... Start Date: 01/10/21 Status: Ordered nitroglycerin 0.3 mg sublingual tablet 1 tablet = 0.3 mg, Sublingual, Every 5 minutes, PRN as needed for chest pain, not to exceed 3 doses/15 min--if pain persists, seek medical attention, # 100 tablet, 0 Refills, Maintenance, 12/04/20 10:05:00 EDT, Tablet, [facility] #[id number], Par... Start Date: 12/04/20 Status: Ordered omeprazole 20 mg oral enteric coated capsule 1 capsule = 20 mg, By Mouth, Daily, before breakfast, # 90 capsule, 0 Refills, Maintenance, 02/13/21 15:28:00 EDT, EC Capsule, [facility] #[id number], 168, cm, 02/05/21 14:18:00 EDT, Height, 72.7, [...] tablet,0 Refills, Maintenance, 01/30/21 15:55:00 EDT, Tablet, [facility] #[id number], Partial fill upon patient request if the prescription is for a sche... Start Date: 01/30/21 Status: Ordered Plavix 75 mg oral tablet 75 mg, 1, tablet, By Mouth, Daily, # 90 tablet, Refills 3, Tot. Refills 3, Maintenance, 01/03/21 8:20:00 EDT, Route to Pharmacy Electronically, [facility] #[id number], Partial fill upon patient request if the prescription is for a schedule II opi... Start Date: 01/03/21 Status: Ordered Tub transfer bench Tub transfer bench, See Instructions, # 1 each, Refills 0, Tot. 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 [place] 4, 22had surgery 2011 23sx pending 24had sx 25seeing ENT 26surgery 1991 27MRI 2006 28possible ITP 29monitor 30Tubular adenoma 2014 Social History Social History Type Response Smoking Status Former smoker; Tobac co use times per day: smoked < 1/2 PPD; Started at age: 18; Stopped at age: 65; entered on: 12/23/13 Sex
--- OUTSIDE RECORDS SUMMARY | 2022-12-09 11:31 | XMS_ITS | Continuity of Care Document ---
Author Name Unknown Organization [facility] Address [address] [place] [address] [address] [place] [address]- Care Team Providers Care Surgical Product Sales Consultant Name Role Phone Luis RICHARD, Kilo Pendleton Primary Care Physician [phone] [place] [facility] [place]): 10/06/20 - 11/30/20 [facility] [address] [place] [address]- Attending Physician: Dennis Mendoza MD Allergies, Adverse Reactions, [...] 2Admin Note: VIS-GIVEN 3Result Comment: [02/28/2017] [facility] [place]: [id number] 4[facility] 5Admin Note: VIS 12/18/2010 [...] 10/30/20 8:19:00 EDT, Route to Pharmacy Electronically, [facility] #[id number], 168, cm, :43:00 EDT, Height, 72.7, kg, [...] 1 Refills, Maintenance, 03/06/20 15:49:00 EDT, Tablet, [facility], 168, cm, 12/06/19 13:53:00 EDT, Height Start Date: 03/06/20 Stop Date: 09/02/20 Status: Ordered omeprazole 20 mg oral enteric coated capsule 1 capsule = 20 mg, By Mouth, Daily, before breakfast, # 90 capsule, 1 Refills, Maintenance, 08/17/20 15:28:00 EDT, EC Capsule, [facility] #[id number], 168, cm, 07/17/20 14:04:00 EST, Height Start [...] cath September 2020 ef 35%(Confirmed) 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 [place] 4, 22had surgery 2011 23sx pending 24had sx 25seeing ENT 26surgery 1991 27MRI 2006 28possible ITP 29monitor 30Tubular adenoma 2014 Social History Social History Type Response Smoking Status Former smoker; Tobac co use times per day: smoked < 1/2 PPD; Started at age: 18; Stopped at age: 65; entered on: 12/23/13 Sex
--- OUTSIDE RECORDS SUMMARY | 2022-12-09 11:31 | XMS_ITS | Continuity of Care Document ---
Author Name Unknown Organization [facility] Alessandro Cruz [place] Address [address] [place] [address]- Care Team Providers Care Paper Wood Cutter Name Role Phone Kilo Smith MD Primary Care Physician Encounter [facility] [place] Date(s): 10/19/20 - 10/26/20 [facility] Alessandro Cruz Adult [address] [place] [address]- Encounter Diagnosis Arteriosclerotic heart disease (ASHD)(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) - 10/19/20 Attending Physician: Kilo Smith MD Allergies, Adverse [...] [facility]: [id number] 4Location History: [facility] 5Admin Note: VIS 12/18/2010 6Admin Note: VIS given 01/02/10 7Admin Note: vis 03/03 8Result Comment: error 9Admin Note: hep A #1 10Admin Note: vis 01/01 11Admin Note: VIS 12Admin Note: vis-given Medications amLODIPine 5 mg oral tablet 5 mg, 1, tablet, By Mouth, Daily, # 90 tablet, Refills 0, Tot. Refills 0, Maintenance, 08/17/20 15:28:00 EDT, Route to Pharmacy Electronically, [facility] #[id number], 168, cm, 07/17/20 14:04:00EST, Height Start Date: 08/17/20 Stop Date: 11/15/20 Status: Ordered aspirin 81 mg oral enteric coated capsule 1 capsule = 81 mg, By Mouth, Daily, # 120 capsule, 0 Refills, Maintenance, EC Capsule Start Date: 11/13/12 Status: Ordered atorvastatin 20 mg oral tablet 1 tablet = 20 mg, By Mouth, Daily, # 90 tablet, 3 Refills, Maintenance, 09/08/20 16:38:00 EDT, Tablet, [facility] #[id number], Partial fill upon patient request if the prescription is for a schedule II opioid drug., 168, cm, 07/17/20 14:04:00 EST... Start Date: 09/08/20 Status: Ordered Freestyle Lite Lancets See Instructions, [...] tablet, Refills 5, Tot. Refills 5, Maintenance, 10/05/20 15:59:00 EDT, Route to Pharmacy Electronically, [facility] #[id number], 168, cm, 09/26/20 13:44:00 EDT, Height Start Date: 10/05/20 Status: Ordered lamotrigine 25 mg oral tablet 25 mg, 1, tablet, By Mouth, 2 times a day, # 180 tablet, Refills 1, Tot. Refills 1, Maintenance, 08/21/20 16:55:00 EDT, Route to Pharmacy Electronically, [facility] #[id number], 168, cm, 04/18/20 10:07:00 EST, Height Start Date: 08/21/20 Stop Date: 02/17/21 Status: Ordered lisinopril 20 mg oral tablet 40 mg, 2, tablet, By Mouth, Daily, new dose, # 180 tablet, Refills 1, Tot. Refills 1, Maintenance, 09/08/19 15:55:00 EDT, Route to Pharmacy Electronically, [facility], new dose, 168, cm, 08/16/19 15:58:00 EDT, Height Start Date: 06/13/17 Stop Date: 03/06/20 Status: Ordered metFORMIN 1000 mg oral tablet 1 tablet = 1,000 mg, By Mouth, 2 times a day, with meals, # 180 tablet, 1 Refills, Maintenance, 03/06/20 15:49:00 EDT, Tablet, [facility], 168, cm, 12/06/19 13:53:00 EDT, Height Start Date: 03/06/20 Stop Date: 09/02/20 Status: Ordered nitroglycerin 0.4 mg sublingual tablet 1 tablet = 0.4 mg, Sublingual, Every 5 minutes, PRN for chest pain, # 25 tablet, 1 Refills, Maintenance, 10/18/20 13:20:00 EDT, Tablet, [facility] #[id number], If chest pain not relieved within 5 minutes of taking the 1st dose, seek immediate med... Start Date: 10/18/20 Status: Ordered omeprazole 20 mg oral enteric coated capsule 1 capsule = 20 mg, By Mouth, Daily, before breakfast, # 90 capsule, 1 Refills, Maintenance, 08/17/20 15:28:00 EDT, EC Capsule, [facility] #[id number], 168, cm, 07/17/20 14:04:00 EST, Height Start Date: 08/17/20 Stop Date: 02/13/21 Status: Ordered One Touch Ultra Test Strips See Instructions, # 1 box, Refills 11, Tot. Refills 11, Maintenance, test tid diabetes, 11/13/12 11:29:19 Start Date: 11/13/12 Status: Ordered oxyCODONE 10 mg oral tablet 1 tablet = 10 mg, By Mouth, Every 4 hours, # 168 tablet, 0 Refills, Maintenance, 09/27/20 14:57:00 EDT, Tablet, [facility] #[id number], 10/04/20, 168, cm, 09/26/20 13:44:00 EDT, Height Start Date: 09/27/20 Status: Ordered Vitamin C By Mouth, Daily, [...] week 19care ploan reviewed 20comm 2 21PHQ9;2. [place] 4, 22had surgery 2011 23sx pending 24had sx 25seeing ENT 26surgery 1991 27MRI 2006 28possible ITP 29monitor 30Tubular adenoma 2015 Diagnosis Diagnosis Type Effective Dates Health Status Clinical Service Informant Arteriosclerotic heart disease (ASHD) 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 10/19/20 Procedures Procedure Date Related Diagnosis Body Site Status Electrocardiogram sinus 78 t inversion V1-v4 and inf qs 1 10/19/20 Completed [id number] Ventricular Rate: 78 BPM Atrial Rate: 78 BPM P-R Interval: 168 ms QRS Duration: 90 ms Q-T Interval: 390 ms QTC Calculation(Bazett): 444 ms P Fowler: 57 degrees R Fowler: -18 degrees T Fowler: 45 degrees Normal sinus rhythm Inferior infarct (cited on or before 28-SEP-2015) Anterior infarct (cited on or before 28-SEP-2015) Abnormal ECG When compared with ECG of 13-OCT-2020 11:25, Questionable change in initial forces of Anteroseptal leads [place]: , ECG 12-Lead Please click on pdf link to open report Vital Signs Most recent to oldest [Reference Range]: 1 2 Height 167.6 cm (10/19/20 3:20 PM) 167.6 cm (10/19/20 3:16 PM) Weight 73.3 kg (10/19/20 3:16 PM) Oxygen Saturation [94-100 %] 97 % (10/19/20 3:16 PM) Pulse Rate [55-90 bpm] 78 bpm (10/19/20 3:16 PM) Body Mass Index [18.5-24.99] 26.09 *H* (10/19/20 3:16 PM) Blood Pressure [90-138/55-84 mm Hg] 142/ 72mm Hg *H* (10/19/20 3:20 PM) 150/70mm Hg *H* (10/19/20 3:16 PM) Respiratory Rate [16-30 br/min] 18 br/mi n (10/19/20 3:16 PM) Blood pressure sites Arm, left (10/19/20 3:20 PM) Arm, left (10/19/20 3:16 PM) Social History Social History Type Response Smoking Status Former smoker; Tobac co use times per day: smoked < 1/2 PPD; Started at age: 18; Stopped at age: 65; entered on: 12/23/13 Sex
--- OUTSIDE RECORDS SUMMARY | 2022-12-09 11:31 | XMS_ITS | Continuity of Care Document ---
Author Name Unknown Organization [facility] lt Address [address] [place] [address]- Care Team Providers Care Snapper On Name Role Phone Luis RICHARD, Kilo Pendleton Primary Care Physician [phone] Encounter [facility] Date(s): 12/05/20 - 01/04/21 [facility] Adult [address] [place] [address]- Allergies, Adverse Reactions, Alerts Substance Reaction Severity [...] influenza virus vaccine, inactivated 3 02/28/17 Gi rahda influenza virus vaccine, inactivated 03/07/16 Give n [...] VIS-GIVEN 3Result Comment: [02/28/2017] [facility]: [id number] 4[facility]: [facility] 5Admin Note: VIS 12/18/2010 [...] drug. Start Date: 11/07/20 Status: Ordered baclofen 5 mg oral tablet 1 tablet = 5 mg, By Mouth, 3 times a day, # 90 tablet, 2 Refills, Maintenance, 01/03/21 8:18:00 EDT, Tablet, [facility] #[id number], Partial fill upon patient request if the [...] 12/28/20 9:56:00 EDT, Route to Pharmacy Electronically, [facility] #[id number], Partial fill... Start Date: 12/28/20 Status: Ordered docusate sodium 100 mg oral capsule 100 mg, 1, capsule, By Mouth, 2 times a day, # 60 capsule, Refills 6, Tot. Refills 6, Maintenance, 01/03/21 8:19:00 EDT, Route to Pharmacy Electronically, [facility] #[id number], Partial fill upon patient request if the prescription is for a sche... Start Date: 01/03/21 Status: Ordered ezetimibe 10 mg oral tablet 1 tablet = 10 mg, By Mouth, Daily, take with atorvastatin, # 30 tablet, 11 Refills, Maintenance, 12/03/20 16:45:00 EDT, Tablet, [facility] #[id number], Partial fill upon patient request if the [...] Maintenance, DX: STROKE I63.9 LIFETIME NEED fax: [phone], 12/05/20 16:06:00 EDT, Supply Start Date: 12/05/20 Status: Ordered Incruse Ellipta 62.5 mcg/inh inhalation powder 1 each, Inhalation, Every 24 hours, doses should be taken at least 24 hours apart repaces spitriva,# 30 each, 11 Refills, Maintenance, 12/04/20 9:56:00 EDT, Powder, [facility] #[id number], Partial fill upon patient request if the [...] 10/30/20 8:19:00 EDT, Route to Pharmacy Electronically, [facility] #[id number], 168, cm, :43:00 EDT, Height, 72.7, kg, [...] 1 Refills, Maintenance, 12/27/20 13:44:00 EDT, Tablet, [facility] #[id number], 168, cm, 12/01/20 9:19:00 EDT, Height, 72.7, kg, 10/12/20 9:18:00 EDT, Dry Weight Start Date: 12/27/20 Stop Date: 06/25/21 Status: Ordered nitroglycerin 0.3 mg sublingual tablet 1 tablet = 0.3 mg, Sublingual, Every 5 minutes, PRN as needed for chest pain, not to exceed 3 doses/15 min--if pain persists, seek medical attention, # 100 tablet, 0 Refills, Maintenance, 12/04/20 10:05:00 EDT, Tablet, [facility] #[id number], Par... Start Date: 12/04/20 Status: Ordered omeprazole 20 mg oral enteric coated capsule 1 capsule = 20 mg, By Mouth, Daily, before breakfast, # 90 capsule, 1 Refills, Maintenance, 08/17/20 15:28:00 EDT, EC Capsule, [facility] #[id number], 168, cm, 07/17/20 14:04:00 EST, Height Start Date: 08/17/20 Stop Date: 02/13/21 Status: Ordered oxyCODONE 10 mg oral tablet 1 tablet = 10 mg, By Mouth, Every 4 hours, PRN as needed for pain, chronic back pain, # 168 tablet,0 Refills, Maintenance, 12/26/20 11:00:00 EDT, Tablet, [facility] #[id number], Partial fill upon patient request if the [...] 01/03/21 8:20:00 EDT, Route to Pharmacy Electronically, [facility] #[id number], Partial fill upon patient request if the prescription is for a schedule II opi... Start Date: 01/03/21 Status: Ordered Tub transfer bench Tub transfer bench, See Instructions, # 1 each, Refills 0, Tot. 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 [place] 4, 22had surgery 2011 23sx pending 24had sx 25seeing ENT 26surgery 1991 27MRI 2006 28possible ITP 29monitor 30Tubular adenoma 2014 Social History Social History Type Response Smoking Status Former smoker; Tobac co use times per day: smoked < 1/2 PPD; Started at age: 18; Stopped at age: 65; entered on: 12/23/13 Sex
--- OUTSIDE RECORDS SUMMARY | 2022-12-09 11:31 | XMS_ITS | Continuity of Care Document ---
Author Name Unknown Organization [facility] [place] Address [address] [place] [address]- Care Team Providers Care Professional Bass Fisherman Name Role Phone Leticia Foster NP Primary Care Physician [place] [facility] [place](s[place] 10/07/22 - 10/14/22 [facility] Adult [address] [place] [address]- Encounter Diagnosis Chronic pancreatitis(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) - 10/07/22 Diabetes mellitus with renal manifestation(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) - 10/07/22 DM (diabetes mellitus), type 2 with peripheral vascular complications(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) - 10/07/22 Ectatic aorta(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) - 10/07/22 Erosive esophagitis(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) - 10/07/22 Essential familial hyperlipidemia(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) - 10/07/22 Spinal stenosis of lumbar region(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) - 10/07/22 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(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) - 10/07/22 Vitamin D deficiency(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) - 10/07/22 ASHD S/P CABG(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) - 10/07/22 Benign Essential Hypertension(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) - 10/07/22 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%(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) - 10/07/22 Attending Physician: Leticia Foster NP Referring Physician: Jessica RICHARD, Devin Marie Allergies, Adverse Reactions, Alerts Substance Reaction Severity Status Duloxetine 1 rash Active 1GI Immunizations Given and Recorded Vaccine Date Status Refusal Reason pneumococcal 20-valent conjugate vaccine 08/27/22 Recorded [id number] 12y+ bivalent booster vax 08/27/22 Recorded influenza [...] inactivated 6 08/01/10 Gi radha SARS-CoV-2 mRNA ([id number]) vax 7 06/29/21 Given SARS-CoV-2 (COVID-19) mRNA [...] Vaccine (oldterm) 15 03/11/06 Given 1Result Comment: [facility]-[id number] 2Result Comment: [facility]: [id number] 3Result Comment: [02/28/2017] [facility]: [id number] 4Location History: [facility] 5Admin Note: VIS 12/18/2010 6Admin Note: VIS given 01/02/10 7Result Comment: [facility]-[id number] 8Admin Note: VIS 9Admin Note: VIS-GIVEN 10Admin Note: vis 03/03 11Result Comment: error 12Admin Note: hep A #1 13Admin Note: vis 01/01 14Admin Note: VIS 15Admin Note: vis-given Medications albuterol 90 mcg/inh inhalation powder 2 puffs = 180 mcg, Inhalation, Every 4 hours, PRN as needed, # 1 each, 0 Refills, Maintenance, 10/07/22 13:35:00 EDT, Powder, [facility] #[id number], 2 puffs Inhalation Every 4 hours,PRN:as needed, 167.6, cm, 10/07/22 13:14:00 EDT, Height, 74, kg... Start Date: 10/07/22 Status: Ordered amLODIPine 5 mg oral tablet 1 tablet = 5 mg, By Mouth, Daily, # 90 tablet, 1 Refills, Maintenance, 10/07/22 21:43:00 EDT, Tablet, [facility] #[id number], 167.6, cm, 10/07/22 13:14:00 EDT, Height, 74, [...] tablet, 1 Refills, Maintenance, 10/07/22 21:43:00 EDT, [facility] #[id number], 167.6, cm, 10/07/22 13:14:00 EDT, Height, 74, kg, 04/06/22 1:20:00 EST, Dry Weight Start Date: 10/07/22 Status: Ordered Coreg 6.25 mg oral tablet 6.25 mg, 1, tablet, By Mouth, 2 times a day, # 60 tablet, Refills 0, Tot. Refills 0, Maintenance, 10/07/22 21:43:00 EDT, Route to Pharmacy Electronically, [facility] #[id number], 167.6, cm, 10/07/22 13:14:00 EDT, Height, 74, kg, 04/06/22 1:20:00... Start Date: 10/07/22 Status: Ordered ezetimibe 10 mg oral tablet TAKE 1 TABLET BY MOUTH DAILY TAKE WITH ATORVASTATIN Start Date: 10/07/22 Status: Ordered Farxiga 10 mg oral tablet 1 tablet = 10 mg, By Mouth, Daily, Increased strength, # 30 tablet, 0 Refills, Maintenance, 01/16/22 9:53:00 EDT, Tablet, [facility] #[id number], Increased strength, 168, cm, 12/26/21 15:45:00 EDT, [...] 05/02/22 13:11:00 EST, Route to Pharmacy Electronically, [facility] #[id number], Partial fill upon patient request if the prescription is for a schedule... Start Date: 05/02/22 Stop Date: 10/29/22 Status: Ordered lisinopril 5 mg oral tablet 5 mg, 1, tablet, By Mouth, Daily, # 90 tablet, Refills 3, Tot. Refills 3, Maintenance, 03/10/22 22:37:00 EDT, Route to Pharmacy Electronically, [facility] #[id number], Partial fill upon patient request if the prescription is for a schedule II opi... Start Date: 03/10/22 Status: Ordered metFORMIN 500 mg oral tablet See Instructions, 1 tablet by mouth daily x 1 week then increase to 1 tablet 2 times a day, # 180 tablet, 0 Refills, Acute 01/19/23 12:00:00 EDT, 10/07/22 21:12:00 EDT, Tablet, [facility] #[id number], Partial fill upon patient request if the pres... Start Date: 10/07/22 Stop Date: 01/19/23 Status: Ordered nitroglycerin 0.3 mg sublingual tablet 1 tablet = 0.3 mg, Sublingual, Every 5 minutes, PRN as needed for chest pain, not to exceed 3 doses/15 min--if pain persists, seek medical attention, # 100 tablet, 0 Refills, Maintenance, 12/04/20 10:05:00 EDT, Tablet, [facility] #[id number], Par... 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 [place] 4, 14surgery 1991 15MRI 2006 16possible ITP 17monitor 18Tubular adenoma 2014 Diagnosis Diagnosis Type Effective Dates Health Status Clinical Service Informant FADUMO S/P CABG 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 10/07/22 Benign Essential Hypertension 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 10/07/22 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% 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 10/07/22 Chronic pancreatitis 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 10/07/22 Diabetes mellitus with renal manifestation 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 10/07/22 DM (diabetes mellitus), type 2 with peripheral vascular complications Discharge Diagnosis 10/07/22 Ectatic aorta Discharge Diagnosis 10/07/22 Erosive esophagitis Discharge Diagnosis 10/07/22 Essential familial hyperlipidemia Discharge Diagnosis 10/07/22 Spinal stenosis of lumbar region Discharge Diagnosis 10/07/22 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 Discharge Diagnosis 10/07/22 Vitamin D deficiency Discharge Diagnosis 10/07/22 Vital Signs Most recent to oldest [Reference Range]: 1 Height 167.6 cm (10/07/22 1:14 PM) Weight 75.1 kg (10/07/22 1:14 PM) Oxygen Saturation [94-100 %] 97 % (10/07/22 1:14 PM) Pulse Rate [55-90 bpm] 78 bpm (10/07/22 1:14 PM) Body Mass Index [18.5-24.99 kg/m2] 26.74 kg/m2 *H* (10/07/22 1:14 PM) Blood Pressure [90-138/55-84 mm Hg] 127/ 67mm Hg (10/07/22 1:14 PM) Mode of Delivery (Oxygen) Room air (10/07/22 1:14 PM) Blood pressure sites Arm, left (10/07/22 1:14 PM) Weight Obtained Via Standing scale (10/07/22 1:14 PM) Social History Social History Type Response Smoking Status Former smoker; Tobac co use times per day: smoked < 1/2 PPD; Started at age: 18; Stopped at age: 65; entered on: 12/23/13 Sex Patient Care team information Care Team Personnel Name: Philomena Castillo Position: S [facility] Supv Member Role: Primary Care Nurse Name: Leticia Foster NP Position: S PCO Associate Professional Member Role: PCP Address: Address: [address] [place] [address]- Name: Namita Barajas RN Position: S RN Member Role: Primary Care Nurse Name: Tasha Back RN Position: [facility] RN Member Role: Primary Care Nurse Name: Jenny Bustillos RN Position: [facility] RN Member Role: Primary Care Nurse Name: Margarita Serrano RN Position: [facility] RN Member Role: Primary Care Nurse Name: Devin Benites RN Position: [facility] RN Member Role: Primary Care Nurse Name: Betsy Millan RN Position: [facility] RN Member Role: Primary Care Nurse Name: Peggy Jansen RN Position: [facility] RN Member Role: Primary Care Nurse Name: Cate Pabon RN Position: [facility] PCO RN Member Role: Primary Care Nurse Name: Janette Jones RN Position: [facility] RN Member Role: Primary Care Nurse Name: Vianney Mcneill RN Position: [facility] RN Member Role: Primary Care Nurse Name: Cindy Evans LPN Position: [facility] RN Member Role: Primary Care Nurse Care Team Related Persons Name: INGE MURRAY Address: home [address] [place] [id number] Name: NIK BARTON Address[place] [address]
--- OUTSIDE RECORDS SUMMARY | 2022-12-09 11:31 | XMS_ITS | Continuity of Care Document ---
Author Name Unknown Organization [facility] Alessandro Cruz [place] lt Address [address] [place] [address]- Care Team Providers Care Paster Operator Name Role Phone Luis RICHARD, Kilo Pendleton Primary Care Physician [facility] Date(s): 12/04/20 - 01/03/21 [facility] Alessandro Cruz Adult [address] [place] [address]- Allergies, Adverse Reactions, Alerts Substance Reaction Severity [...] VIS-GIVEN 3Result Comment: [02/28/2017] [facility]: [id number] 4[facility] 5Admin Note: VIS 12/18/2010 [...] 2 Refills, Maintenance, 01/03/21 8:18:00 EDT, Tablet, [facility] #[id number], Partial fill upon patient request if the [...] 12/28/20 9:56:00 EDT, Route to Pharmacy Electronically, [facility] #[id number], Partial fill... Start Date: 12/28/20 Status: Ordered docusate sodium 100 mg oral capsule 100 mg, 1, capsule, By Mouth, 2 times a day, # 60 capsule, Refills 6, Tot. Refills 6, Maintenance, 01/03/21 8:19:00 EDT, Route to Pharmacy Electronically, [facility] #[id number], Partial fill upon patient request if the prescription is for a sche... Start Date: 01/03/21 Status: Ordered ezetimibe 10 mg oral tablet 1 tablet = 10 mg, By Mouth, Daily, take with atorvastatin, # 30 tablet, 11 Refills, Maintenance, 12/03/20 16:45:00 EDT, Tablet, [facility] #[id number], Partial fill upon patient request if the [...] Maintenance, DX: STROKE I63.9 LIFETIME NEED fax: [phone], 12/05/20 16:06:00 EDT, Supply Start Date: 12/05/20 Status: Ordered Incruse Ellipta 62.5 mcg/inh inhalation powder 1 each, Inhalation, Every 24 hours, doses should be taken at least 24 hours apart repaces spitriva,# 30 each, 11 Refills, Maintenance, 12/04/20 9:56:00 EDT, Powder, [facility] #[id number], Partial fill upon patient request if the [...] 10/30/20 8:19:00 EDT, Route to Pharmacy Electronically, [facility] #[id number], 168, cm, :43:00 EDT, Height, 72.7, kg, [...] 1 Refills, Maintenance, 12/27/20 13:44:00 EDT, Tablet, [facility] #[id number], 168, cm, 12/01/20 9:19:00 EDT, Height, 72.7, kg, 10/12/20 9:18:00 EDT, Dry Weight Start Date: 12/27/20 Stop Date: 06/25/21 Status: Ordered nitroglycerin 0.3 mg sublingual tablet 1 tablet = 0.3 mg, Sublingual, Every 5 minutes, PRN as needed for chest pain, not to exceed 3 doses/15 min--if pain persists, seek medical attention, # 100 tablet, 0 Refills, Maintenance, 12/04/20 10:05:00 EDT, Tablet, [facility] #[id number], Par... Start Date: 12/04/20 Status: Ordered omeprazole 20 mg oral enteric coated capsule 1 capsule = 20 mg, By Mouth, Daily, before breakfast, # 90 capsule, 1 Refills, Maintenance, 08/17/20 15:28:00 EDT, EC Capsule, [facility] #[id number], 168, cm, 07/17/20 14:04:00 EST, Height Start Date: 08/17/20 Stop Date: 02/13/21 Status: Ordered oxyCODONE 10 mg oral tablet 1 tablet = 10 mg, By Mouth, Every 4 hours, PRN as needed for pain, chronic back pain, # 168 tablet,0 Refills, Maintenance, 12/26/20 11:00:00 EDT, Tablet, [facility] #[id number], Partial fill upon patient request if the [...] 01/03/21 8:20:00 EDT, [id number], Partial fill upon patient request if the prescription is for a schedule II opi... Start Date: 01/03/21 Status: Ordered Tub transfer bench Tub transfer bench, See Instructions, # 1 each, Refills 0, Tot. Refills 0, Maintenance, DX: STROKE I63.9 LIFETIME NEED fax: [phone], 12/05/20 16:06:00 EDT, Supply Start Date: 12/05/20 [...] week 19care ploan reviewed 20comm 2 21PHQ9;2. [place] 4, 22had surgery 2011 23sx pending 24had sx 25seeing ENT 26surgery 1991 27MRI 2006 28possible ITP 29monitor 30Tubular adenoma 2014 Social History Social History Type Response Smoking Status Former smoker; Tobac co use times per day: smoked < 1/2 PPD; Started at age: 18; Stopped at age: 65; entered on: 12/23/13 Sex
--- OUTSIDE RECORDS SUMMARY | 2022-12-09 11:31 | XMS_ITS | Continuity of Care Document ---
Author Name Unknown Organization [facility] [place] lt Address [address] [place] [address]- Care Team Providers Care Legal Referee Name Role Phone Luis RICHARD, Kilo Pendleton Primary Care Physician [phone] Encounter [facility] Date(s): 08/18/20 - 09/20/20 [facility] Adult [address] [place] [address]- Attending Physician: Stefanie Pham NP Allergies, Adverse Reactions, Alerts Substance Reaction [...] 2Admin Note: VIS-GIVEN 3Result Comment: [02/28/2017] [facility]: [id number] 4[facility] History: [facility] 5Admin Note: VIS 12/18/2010 6Admin Note: VIS given 01/02/10 7Admin Note: vis 03/03 8Result Comment: error 9Admin Note: hep A #1 10Admin Note: vis 01/01 11Admin Note: VIS 12Admin Note: vis-given Medications amLODIPine 5 mg oral tablet 5 mg, 1, tablet, By Mouth, Daily, # 90 tablet, Refills 0, Tot. Refills 0, Maintenance, 08/17/20 15:28:00 EDT, Route to Pharmacy Electronically, [facility] #[id number], 168, cm, 07/17/20 14:04:00EST, Height Start Date: [...] 3 Refills, Maintenance, 09/08/20 16:38:00 EDT, Tablet, [facility] #[id number], Partial fill upon patient request if the [...] 07/18/20 14:07:00 EST, Route to Pharmacy Electronically, [facility] #[id number], 168, cm, 07/17/20 14:04:00 EST, Height Start Date: 07/18/20 Status: Ordered lamotrigine 25 mg oral tablet 25 mg, 1, tablet, By Mouth, 2 times a day, # 180 tablet, Refills 1, Tot. Refills 1, Maintenance, 08/21/20 16:55:00 EDT, Route to Pharmacy Electronically, [facility] #[id number], 168, cm, 04/18/20 10:07:00 EST, Height Start Date: 08/21/20 Stop Date: 02/17/21 Status: Ordered lisinopril 20 mg oral tablet 40 mg, 2, tablet, By Mouth, Daily, new dose, # 180 tablet, Refills 1, Tot. Refills 1, Maintenance, 09/08/19 15:55:00 EDT, Route to Pharmacy Electronically, [facility], new dose, 168, cm, 08/16/19 15:58:00 EDT, Height Start Date: 06/13/17 Stop Date: 03/06/20 Status: Ordered metFORMIN 1000 mg oral tablet 1 tablet = 1,000 mg, By Mouth, 2 times a day, with meals, # 180 tablet, 1 Refills, Maintenance, 03/06/20 15:49:00 EDT, Tablet, [facility], 168, cm, 12/06/19 13:53:00 EDT, [...] Refills, Maintenance, 08/17/20 15:28:00 EDT, EC Capsule, [facility] #[id number], 168, cm, 07/17/20 14:04:00 EST, Height Start Date: 08/17/20 Stop Date: 02/13/21 Status: Ordered One Touch Ultra Test Strips See Instructions, # 1 box, Refills 11, Tot. Refills 11, Maintenance, test tid diabetes, 11/13/12 11:29:19 Start Date: 11/13/12 Status: Ordered oxyCODONE 10 mg oral tablet 1 tablet = 10 mg, By Mouth, Every 4 hours, # 168 tablet, 0 Refills, Maintenance, 08/29/20 8:03:00 EDT, Tablet, [facility] #[id number], 09/06/20, 168, cm, 07/17/20 14:04:00 EST, Height Start Date: 08/29/20 Status: Ordered Vitamin C By Mouth, Daily, [...] polyps(Confirmed) 18 Active Inguinal hernia left(Confirmed) Active nursing home current use of opi [...] week 19care ploan reviewed 20comm 2 21PHQ9;2. [place] 4, 22had surgery 2011 23sx pending 24had sx 25seeing ENT 26surgery 1991 27MRI 2006 28possible ITP 29monitor 30Tubular adenoma 2014 Social History Social History Type Response Smoking Status Former smoker; Tobac co use times per day: smoked < 1/2 PPD; Started at age: 18; Stopped at age: 65; entered on: 12/23/13 Sex
--- OUTSIDE RECORDS SUMMARY | 2022-12-09 11:31 | XMS_ITS | Continuity of Care Document ---
Author Name Unknown Organization [facility] [place] lt Address [address] [place] [address]- Care Team Providers Care Manager Roofing Name Role Phone Luis RICHARD, Kilo Pendleton Primary Care Physician Encounter [facility] Date(s): 09/27/20 - 10/27/20 [facility] Adult [address] [place] [address]- Allergies, Adverse Reactions, Alerts Substance Reaction Severity [...] Comment: [02/28/2017] [facility]: [id number] 4Location History: [facility] 5Admin Note: VIS 12/18/2010 6Admin Note: VIS given 01/02/10 7Admin Note: vis 03/03 8Result Comment: error 9Admin Note: hep A #1 10Admin Note: vis 01/01 11Admin Note: VIS 12Admin Note: vis-given Medications amLODIPine 5 mg oral tablet 5 mg, 1, tablet, By Mouth, Daily, # 90 tablet, Refills 0, Tot. Refills 0, Maintenance, 08/17/20 15:28:00 EDT, Route to Pharmacy Electronically, [facility] #[id number], 168, cm, 07/17/20 14:04:00EST, Height Start Date: [...] 3 Refills, Maintenance, 09/08/20 16:38:00 EDT, Tablet, [facility] #[id number], Partial fill upon patient request if the [...] 10/05/20 15:59:00 EDT, Route to Pharmacy Electronically, [facility] #[id number], 168, cm, 09/26/20 13:44:00 EDT, Height Start Date: 10/05/20 Status: Ordered lamotrigine 25 mg oral tablet 25 mg, 1, tablet, By Mouth, 2 times a day, # 180 tablet, Refills 1, Tot. Refills 1, Maintenance, 08/21/20 16:55:00 EDT, Route to Pharmacy Electronically, [facility] #[id number], 168, cm, 04/18/20 10:07:00 EST, Height Start [...] 1 Refills, Maintenance, 10/18/20 13:20:00 EDT, Tablet, [facility] #[id number], If chest pain not relieved within 5 minutes of taking the 1st dose, seek immediate med... Start Date: 10/18/20 Status: Ordered omeprazole 20 mg oral enteric coated capsule 1 capsule = 20 mg, By Mouth, Daily, before breakfast, # 90 capsule, 1 Refills, Maintenance, 08/17/20 15:28:00 EDT, EC Capsule, [facility] #[id number], 168, cm, 07/17/20 14:04:00 EST, Height Start [...] 0 Refills, Maintenance, 09/27/20 14:57:00 EDT, Tablet, [facility] #[id number], 10/04/20, 168, cm, 09/26/20 13:44:00 EDT, Height [...] week 19care ploan reviewed 20comm 2 21PHQ9;2. [place] 4, 22had surgery 2011 23sx pending 24had sx 25seeing ENT 26surgery 1991 27MRI 2006 28possible ITP 29monitor 30Tubular adenoma 2014 Social History Social History Type Response Smoking Status Former smoker; Tobac co use times per day: smoked < 1/2 PPD; Started at age: 18; Stopped at age: 65; entered on: 12/23/13 Sex
--- OUTSIDE RECORDS SUMMARY | 2022-12-09 11:31 | XMS_ITS | Continuity of Care Document ---
Author Name Unknown Organization [facility] Address [address] [place] [address]- Care Team Providers Care Hand Marker Name Role Phone Kristin CLEANER AND DYERLeticia Primary Care Physician [phone] [facility]counter [facility] Date(s): 04/11/22 - 05/11/22 [facility] [address] [place] [address]- Allergies, Adverse Reactions, Alerts Substance Reaction Severity [...] inactivated 6 08/01/10 Gi radha SARS-CoV-2 mRNA ([id number]) vax 7 06/29/21 Given SARS-CoV-2 (COVID-19) mRNA [...] Vaccine (oldterm) 15 03/11/06 Given 1Result Comment: [facility]-[id number] 2Result Comment: [facility]: [id number] 3Result Comment: [02/28/2017] [facility]: [id number] 4Location History: [facility] 5Admin Note: VIS 12/18/2010 6Admin Note: VIS given 01/02/10 7Result Comment: [facility]-[id number] 8Admin Note: VIS 9Admin Note: VIS-GIVEN 10Admin [...] 0 Refills, Maintenance, 07/17/21 12:08:00 EST, Tablet, [facility] #[id number], Partial fill upon patient request if the [...] tablet, 1 Refills, Maintenance, 01/22/22 12:14:00 EDT, [facility] #[id number], 168, cm, 12/26/21 15:45:00 EDT, Height, 88.5, kg, 11/04/21 16:51:00 EDT, Dry Weight Start Date: 01/22/22 Status: Ordered baclofen 10 mg oral tablet 0.5, tablet, By Mouth, 3 times a day, # 45 tablet, Refills 0, Tot. Refills 0, 08/14/21 13:16:00 EDT, [id number], 168, cm, 08/01/21 9:15:00 EST, Height, 72.7, kg, 10/12/20 9:18:00 EDT, Dry Weight Start Date: 08/14/21 Status: Ordered clopidogrel 75 mg oral tablet 75 mg, 1, tablet, By Mouth, Daily, Continue medication through 09/2021 unless otherwise instructed.,# 90 tablet, Refills 3, Tot. Refills 3, Maintenance, 12/28/20 9:56:00 EDT, Route to Pharmacy Electronically, [facility] #[id number], Partial fill... Start Date: 12/28/20 Status: Ordered Coreg 6.25 mg oral tablet 6.25 mg, 1, tablet, By Mouth, 2 times a day, # 60 tablet, Refills 0, Tot. Refills 0, Maintenance, 04/08/22 15:17:00 EST, Route to Pharmacy Electronically, [facility] 3, Partial fill upon patient request if the prescription is for a schedul... Start Date: 04/08/22 Status: Ordered Farxiga 10 mg oral tablet 1 tablet = 10 mg, By Mouth, Daily, Increased strength, # 30 tablet, 0 Refills, Maintenance, 01/16/22 9:53:00 EDT, Tablet, [facility] #[id number], Increased strength, 168, cm, 12/26/21 15:45:00 EDT, [...] 05/02/22 13:11:00 EST, Route to Pharmacy Electronically, [facility] #[id number], Partial fill upon patient request if the prescription is for a schedule... Start Date: 05/02/22 Stop Date: 10/29/22 Status: Ordered lamotrigine 25 mg oral tablet 25 mg, 1, tablet, By Mouth, 2 times a day, # 180 tablet, Refills 1, Tot. Refills 1, Maintenance, 01/22/22 12:14:00 EDT, Route to Pharmacy Electronically, [facility] #[id number], 168, cm, 12/26/21 15:45:00 EDT, Height, 88.5, kg, 11/04/21 16:51:00... Start Date: 01/22/22 Status: Ordered lisinopril 5 mg oral tablet 5 mg, 1, tablet, By Mouth, Daily, # 90 tablet, Refills 3, Tot. Refills 3, Maintenance, 03/10/22 22:37:00 EDT, Route to Pharmacy Electronically, [facility] #[id number], Partial fill upon patient request if the prescription is for a schedule II opi... Start Date: 03/10/22 Status: Ordered nitroglycerin 0.3 mg sublingual tablet 1 tablet = 0.3 mg, Sublingual, Every 5 minutes, PRN as needed for chest pain, not to exceed 3 doses/15 min--if pain persists, seek medical attention, # 100 tablet, 0 Refills, Maintenance, 12/04/20 10:05:00 EDT, Tablet, [facility] #[id number], Par... Start Date: 12/04/20 Status: Ordered omeprazole 20 mg oral enteric coated capsule 1 capsule = 20 mg, By Mouth, Daily, in AM, # 90 capsule, 1 Refills, Maintenance, 04/09/22 11:29:00 EST, EC Capsule, [facility] #[id number], 168, cm, 04/09/22 11:04:00 EST, Height, 74, kg, 04/06/22 1:20:00 EST, Dry Weight Start Date: 04/09/22 Stop Date: 10/06/22 Status: Ordered oxyCODONE 10 mg oral tablet 1 tablet = 10 mg, By Mouth, Every 4 hours, PRN as needed for pain, chronic back pain, # 168 tablet,0 Refills, Maintenance, 05/03/22 12:21:00 EST, Tablet, [facility] #[id number], Partial fill upon patient request if the prescription is for a sche... 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 [place] 4, 22had surgery 2011 23sx pending 24had [...] Care Nurse Name: Leticia Foster NP Position: [facility] PCO Associate Professional Member Role: PCP Address: Address: [address] [place] [id number] Name: Namita Barajsa RN Position: [facility] RN Member Role: Primary Care Nurse Name: Tasha Back RN Position: S RN Member Role: Primary Care Nurse Name: Jenny Bustillos RN Position: S RN Member Role: Primary Care Nurse Name: Margarita Serrano RN Position: S RN Member Role: Primary Care Nurse Name: Devin Benites RN Position: [facility] RN Member Role: Primary Care Nurse Name: Betsy Millan RN Position: [facility] RN Member Role: Primary Care Nurse Name: Peggy Jansen RN Position: [facility] RN Member Role: Primary Care Nurse Name: Cate Pabon RN Position: [facility] PCO RN Member Role: Primary Care Nurse Name: Janette Jones RN Position: S RN Member Role: Primary Care Nurse Name: Vianney Mcneill RN Position: S RN Member Role: Primary Care Nurse Name: Cindy Evans LPN Position: S RN Member Role: Primary Care Nurse Care Team Related Persons Name: INGE MURRAY Address: home [address] [place] [address] Name: NIK BARTON Address: [place] [address]
--- OUTSIDE RECORDS SUMMARY | 2022-12-09 11:31 | XMS_ITS | Continuity of Care Document ---
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) - Discharge Disposition: A-D/C Home Attending Physician: Cindy Pastor NP Admitting Physician: Cindy Pastor NP Referring Physician: Cindy Pastor NP Allergies, Adverse Reactions, Alerts Substance Reaction Severity Status Duloxetine 1 rash Active 1GI Immunizations Given and Recorded Vaccine Date Status Refusal Reason SARS-CoV-2 mRNA (krtgwjt-[id number]-bhikh) vax 1 06/29/21 Given influenza virus vaccine, [...] Vaccine (oldterm) 14 03/11/06 Given 1Result Comment: [facility]-[id number] 2Result Comment: [facility]: [id number] 3Result Comment: [02/28/2017] [facility]: [id number] 4[facility] History[facility] 5Admin Note: VIS 12/18/2010 [...] 0 Refills, Maintenance, 07/17/21 12:08:00 EST, Tablet, [facility] #[id number], Partial fill upon patient request if the [...] tablet, 3 Refills, Maintenance, 02/05/21 8:58:00 EDT, [facility] #[id number], 168, cm, 01/30/21 11:10:00 EDT, Height, 72.7, kg, 10/12/20 9:18:00 EDT, Dry Weight Start Date: 02/05/21 Status: Ordered baclofen 10 mg oral tablet 0.5, tablet, By Mouth, 3 times a day, # 45 tablet, Refills 0, Tot. Refills 0, 08/14/21 13:16:00 EDT, Route to Pharmacy Electronically, [facility] #[id number], 168, cm, 08/01/21 9:15:00 EST, Height, 72.7, kg, 10/12/20 9:18:00 EDT, Dry Weight Start Date: 08/14/21 Status: Ordered clopidogrel 75 mg oral tablet 75 mg, 1, tablet, By Mouth, Daily, Continue medication through 09/2021 unless otherwise instructed.,# 90 tablet, Refills 3, Tot. Refills 3, Maintenance, 12/28/20 9:56:00 EDT, Route to Pharmacy Electronically, [facility] #[id number], Partial fill... Start Date: 12/28/20 Status: Ordered Coreg 3.125 mg oral tablet 3.125 mg, 1, tablet, By Mouth, 2 times a day, # 60 tablet, Refills 11, Tot. Refills 11, Maintenance, 08/01/21 9:34:00 EST, Route to Pharmacy Electronically, [facility] #[id number], Partial fill upon patient request if the prescription is for a sc... Start Date: 08/01/21 Stop Date: 07/27/22 Status: Ordered docusate sodium 100 mg oral capsule 100 mg, 1, capsule, By Mouth, 2 times a day, # 60 capsule, Refills 6, Tot. Refills 6, Maintenance, 01/03/21 8:19:00 EDT, Route to Pharmacy Electronically, [facility] #[id number], Partial fill upon patient request if the prescription is for a sche... Start Date: 01/03/21 Status: Ordered ezetimibe 10 mg oral tablet 1 tablet = 10 mg, By Mouth, Daily, take with atorvastatin, # 30 tablet, 11 Refills, Maintenance, 12/03/20 16:45:00 EDT, Tablet, [facility] #[id number], Partial fill upon patient request if the prescription is for a schedule II opioid drug., 168,... Start Date: 12/03/20 Status: Ordered Farxiga 5 mg oral tablet 1 tablet = 5 mg, By Mouth, Daily, # 30 tablet, 6 Refills, Maintenance, 07/06/21 13:16:00 EST, Tablet, [facility] #[id number], Partial fill upon patient request if the [...] 11 Refills, Maintenance, 12/04/20 9:56:00 EDT, Powder, [facility] #[id number], Partial fill upon patient request if the prescription i... Start Date: 12/04/20 Status: Ordered isosorbide mononitrate 30 mg oral tablet, extended release 1 tablet, By Mouth, Daily in AM, # 30 tablet, 0 Refills, [facility] #[id number], 168, cm, 01/10/21 10:40:00 EDT, Height, 72.7, kg, 10/12/20 9:18:00 EDT, Dry Weight Start Date: 01/28/21 Status: Ordered lamotrigine 25 mg oral tablet 25 mg, 1, tablet, By Mouth, 2 times a day, # 180 tablet, Refills 1, Tot. Refills 1, Maintenance, 07/11/21 13:45:00 EST, Route to Pharmacy Electronically, [facility] #[id number], 168, cm, 07/06/21 13:13:00 EST, Height, 72.7, [...] 02/21/21 16:10:00 EDT, Route to Pharmacy Electronically, [facility] #[id number], Partial fill upon patient request if the prescription is for a schedule II opi... Start Date: 02/21/21 Status: Ordered nitroglycerin 0.3 mg sublingual tablet 1 tablet = 0.3 mg, Sublingual, Every 5 minutes, PRN as needed for chest pain, not to exceed 3 doses/15 min--if pain persists, seek medical attention, # 100 tablet, 0 Refills, Maintenance, 12/04/20 10:05:00 EDT, Tablet, [facility] #[id number], Par... Start Date: 12/04/20 Status: Ordered omeprazole 20 mg oral enteric coated capsule 1 capsule = 20 mg, By Mouth, Daily, before breakfast, # 90 capsule, 0 Refills, Maintenance, 07/11/21 9:03:00 EST, EC Capsule, [facility] #[id number], 168, cm, 07/06/21 13:13:00 EST, Height, 72.7, kg, 10/12/20 9:18:00 EDT, Dry Weight Start Date: 07/11/21 Stop Date: 10/09/21 Status: Ordered oxyCODONE 10 mg oral tablet 1 tablet = 10 mg, By Mouth, Every 4 hours, PRN as needed for pain, chronic back pain, # 168 tablet,0 Refills, Maintenance, 08/14/21 10:56:00 EDT, Tablet, [facility] #[id number], Partial fill upon patient request if the [...] ef 35%/Echo Sept 2020 40-45%(Confirmed) 10/20/20 Active halfway current use of opi ate [...] week 19care ploan reviewed 20comm 2 21PHQ9;2. [place] 4, 22had surgery 2011 23sx pending 24had sx 25seeing ENT 26surgery 1991 27MRI 2006 28possible ITP 29monitor 30Tubular adenoma 2015 Social History Social History Type Response Smoking Status Former smoker; Tobac co use times per day: smoked < 1/2 PPD; Started at age: 18; Stopped at age: 65; entered on: 12/23/13 Sex
--- OUTSIDE RECORDS SUMMARY | 2022-12-09 11:31 | XMS_ITS | Continuity of Care Document ---
Author Name Unknown Organization [facility] [place] lt Address [address] [place] [address]- Care Team Providers Care Information Systems Consultant Name Role Phone Luis RICHARD, Kilo Pendleton Primary Care Physician Encounter [facility] Date(s): 11/30/19 - 12/30/19 [facility] Adult [address] [place] [address]- [facility] Allergies, Adverse Reactions, Alerts Substance Reaction Severity [...] VIS 2Admin Note: VIS-GIVEN 3Result Comment: [02/28/2017] [facility]: [id number] 4[facility] 5Admin Note: VIS 12/18/2010 [...] 15:55:00 EDT, Route to Pharmacy Electronically, [facility], 168, cm, 08/16/19 15:58:00 EDT, Height [...] 5 Refills, Maintenance, 10/06/19 15:53:00 EDT, Tablet, [facility], 168, cm, 08/16/19 15:58:00 EDT, Height Start Date: 10/06/19 Stop Date: 04/03/20 Status: Ordered Flonase 50 mcg/inh nasal spray 1 sprays, Nares, Both, 2 times a day, # 1 each, 3 Refills, Maintenance, 05/07/16 9:37:51, [place], 1 sprays Nares, Both 2 times a [...] 03/23/19 10:06:18 EDT, Route to Pharmacy Electronically, [id number], [facility] Start Date: 03/23/19 Status: Ordered lamotrigine 25 mg oral tablet 25 mg, 1, tablet, By Mouth, 2 times a day, # 60 tablet, Refills 5, Tot. Refills 5, Maintenance, 05/17/19 16:10:00 EST, Route to Pharmacy Electronically, [facility], 168, cm, 05/17/19 16:06:00 EST, Height Start Date: 05/17/19 Stop Date: 11/13/19 Status: Ordered lisinopril 20 mg oral tablet 40 mg, 2, tablet, By Mouth, Daily, new dose, # 180 tablet, Refills 1, Tot. Refills 1, Maintenance, 09/08/19 15:55:00 EDT, Route to Pharmacy Electronically, [facility], new dose, 168, cm, 08/16/19 15:58:00 EDT, Height Start Date: 06/13/17 Stop Date: 03/06/20 Status: Ordered loratadine 10 mg oral tablet 10 mg, 1, tablet, By Mouth, Daily, for seasonal allergies, # 30 tablet, Refills 2, Tot. Refills 2, Maintenance, 10/17/16 11:37:04, Route to Pharmacy Electronically, [id number], [facility] Start Date: 10/17/16 Status: Ordered metFORMIN 1000 mg oral tablet 1 tablet = 1,000 mg, By Mouth, 2 times a day, with meals, # 180 tablet, 1 Refills, Maintenance, 09/08/19 15:49:00 EDT, Tablet, [facility], 168, cm, 08/16/19 15:58:00 EDT, Height [...] see pharamcy note, 06/13/17 11:20:27, Narcan Nasal [place]: 4 mg (contents of 1 nasal spray): Narcan Nasal [place]: 4 mg (contents of 1 nasal spray), [...] Refills, Maintenance, 09/08/19 15:55:00 EDT, EC Capsule, [facility] 168, cm, 08/16/19 15:58:00 EDT, Height Start [...] 0 Refills, Maintenance, 12/14/19 12:29:00 EDT, Tablet, [facility] 12/22/19, 168, cm, 12/06/19 13:53:00 EDT, Height [...] Hx of adenomatous colonic polyps(Confirmed) 18 Active longterm current use of opi 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 [place] 4, 22had surgery 2011 23sx pending 24had sx 25seeing ENT 26surgery 1991 27MRI 2006 28possible ITP 29monitor 30Tubular adenoma 2014 Social History Social History Type Response Smoking Status Former smoker; Tobac co use times per day: smoked < 1/2 PPD; Started at age: 18; Stopped at age: 65; entered on: 12/23/13 Sex
--- OUTSIDE RECORDS SUMMARY | 2022-12-09 11:31 | XMS_ITS | Continuity of Care Document ---
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 Role Phone Kilo Smith MD Primary Care Physician Encounter [facility] Date(s): 06/29/21 - 07/06/21 [facility] Adult [address] [place] [address]- Encounter Diagnosis Chronic back pain(Discharge Diagnosis) - 06/26/21 Failed back syndrome sx 1991(Discharge Diagnosis) - 06/26/21 H/O lumbar discectomy 1991(Discharge Diagnosis) - 06/26/21 long-term current use of opiate analgesic(Discharge Diagnosis) - 06/26/21 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%(Discharge Diagnosis) - 06/26/21 Benign Essential Hypertension(Discharge Diagnosis) - 06/29/21 Attending Physician: Kilo Smith MD Allergies, Adverse Reactions, Alerts Substance Reaction Severity Status Duloxetine 1 rash Active 1GI Immunizations Given and Recorded Vaccine Date Status Refusal Reason SARS-CoV-2 mRNA ([id number]) vax 1 06/29/21 Given influenza virus vaccine, [...] Vaccine (oldterm) 14 03/11/06 Given 1Result Comment: [facility]-[id number] 2Result Comment: [facility]: [id number] 3Result Comment: [02/28/2017] [facility]: [id number] 4Location History: [facility] 5Admin Note: VIS 12/18/2010 [...] tablet, 3 Refills, Maintenance, 02/05/21 8:58:00 EDT, [id number], 168, cm, 01/30/21 11:10:00 EDT, Height, 72.7, kg, 10/12/20 9:18:00 EDT, Dry Weight Start Date: 02/05/21 Status: Ordered baclofen 10 mg oral tablet 0.5, tablet, By Mouth, 3 times a day, # 45 tablet, Refills 0, Tot. Refills 0, 06/01/21 14:08:00 EST, Route to Pharmacy Electronically, [facility] #[id number], 168, cm, 03/19/21 15:01:00 EDT, Height, 72.7, kg, 10/12/20 9:18:00 EDT, Dry Weight Start Date: 06/01/21 Status: Ordered clopidogrel 75 mg oral tablet 75 mg, 1, tablet, By Mouth, Daily, Continue medication through 09/2021 unless otherwise instructed.,# 90 tablet, Refills 3, Tot. Refills 3, Maintenance, 12/28/20 9:56:00 EDT, Route to Pharmacy Electronically, [facility] #[id number], Partial fill... Start Date: 12/28/20 Status: Ordered docusate sodium 100 mg oral capsule 100 mg, 1, capsule, By Mouth, 2 times a day, # 60 capsule, Refills 6, Tot. Refills 6, Maintenance, 01/03/21 8:19:00 EDT, Route to Pharmacy Electronically, [facility] #[id number], Partial fill upon patient request if the prescription is for a sche... Start Date: 01/03/21 Status: Ordered ezetimibe 10 mg oral tablet 1 tablet = 10 mg, By Mouth, Daily, take with atorvastatin, # 30 tablet, 11 Refills, Maintenance, 12/03/20 16:45:00 EDT, Tablet, [facility][id number], Partial fill upon patient request if the prescription is for a schedule II opioid drug., 168,... Start Date: 12/03/20 Status: Ordered Farxiga 5 mg oral tablet 1 tablet = 5 mg, By Mouth, Daily, # 30 tablet, 6 Refills, Maintenance, 07/06/21 13:16:00 EST, Tablet, [facility][id number], Partial fill upon patient request if the [...] 11 Refills, Maintenance, 12/04/20 9:56:00 EDT, Powder, [facility] #[id number], Partial fill upon patient request if the prescription i... Start Date: 12/04/20 Status: Ordered isosorbide mononitrate 30 mg oral tablet, extended release 1 tablet, By Mouth, Daily in AM, # 30 tablet, 0 Refills, [facility] #[id number], 168, cm, 01/10/21 10:40:00 EDT, Height, 72.7, kg, 10/12/20 9:18:00 EDT, Dry Weight Start Date: 01/28/21 Status: Ordered lamotrigine 25 mg oral tablet 25 mg, 1, tablet, By Mouth, 2 times a day, # 180 tablet, Refills 1, Tot. Refills 1, Maintenance, 10/30/20 8:19:00 EDT, Route to Pharmacy Electronically, [facility] #[id number], 168, cm, 216:43:00 EDT, Height, 72.7, kg, [...] 02/21/21 16:10:00 EDT, Route to Pharmacy Electronically, [facility][id number], Partial fill upon patient request if the prescription is for a schedule II opi... Start Date: 02/21/21 Status: Ordered metoprolol 25 mg oral tablet, extended release 12.5 mg, 0.5, tablet, By Mouth, Daily, # 30 tablet, Refills 2, Tot. Refills 2, Maintenance, 01/10/21 11:01:00 EDT, Route to Pharmacy Electronically, [facility][id number], Partial fill upon patient request if the prescription is for a schedule I... Start Date: 01/10/21 Status: Ordered nitroglycerin 0.3 mg sublingual tablet 1 tablet = 0.3 mg, Sublingual, Every 5 minutes, PRN as needed for chest pain, not to exceed 3 doses/15 min--if pain persists, seek medical attention, # 100 tablet, 0 Refills, Maintenance, 12/04/20 10:05:00 EDT, Tablet, [id number], Par... Start Date: 12/04/20 Status: Ordered omeprazole 20 mg oral enteric coated capsule 1 capsule = 20 mg, By Mouth, Daily, before breakfast, # 90 capsule, 0 Refills, Maintenance, 02/13/21 15:28:00 EDT, EC Capsule, [facility] #[id number], 168, cm, 02/05/21 14:18:00 EDT, Height, 72.7, kg, 10/12/20 9:18:00 EDT, Dry Weight Start Date: 02/13/21 Stop Date: 05/14/21 Status: Ordered oxyCODONE 10 mg oral tablet 1 tablet = 10 mg, By Mouth, Every 4 hours, PRN as needed for pain, chronic back pain, # 168 tablet,0 Refills, Maintenance, 06/23/21 8:19:00 EST, Tablet, [facility] #[id number], Partial fill upon patient request if the [...] ef 35%/Echo Sept 2020 40-45%(Confirmed) 10/20/20 Active long-term current use of opi 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 [place] 4, 22had surgery 2011 23sx pending 24had sx 25seeing ENT 26surgery 1991 27MRI 2006 28possible ITP 29monitor 30Tubular adenoma 2014 Diagnosis Diagnosis Type Effective Dates Health Status Clinical Service Informant Chronic back pain Discharge Diagnosis 06/26/21 Failed back syndrome sx 1991 Discharge Diagnosis 06/26/21 H/O lumbar discectomy 1991 Discharge Diagnosis 06/26/21 long-term current use of opiate analgesic Discharge Diagnosis 06/26/21 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% Discharge Diagnosis 06/26/21 Benign Essential Hypertension Discharge Diagnosis 06/29/21 Vital Signs Most recent to oldest [Reference Range]: 1 Height 168 cm (06/29/21 10:09 AM) Weight 78.0 kg (06/29/21 10:09 AM) Oxygen Saturation [94-100 %] 100 % (06/29/21 10:09 AM) Pulse Rate [55-90 bpm] 85 bpm (06/29/21 10:09 AM) Body Mass Index [18.5-24.99] 27.64 *H* (06/29/21 10:09 AM) Blood Pressure [90-138/55-84 mm Hg] 153/ 92mm Hg *H* (06/29/21 10:09 AM) Respiratory Rate [16-30 br/min] 16 br/mi n (06/29/21 10:09 AM) Temperature [96.8-100.4 DegF] 97.6 DegF (06/29/21 10:09 AM) Mode of Delivery (Oxygen) Room air (06/29/21 10:09 AM) Blood pressure sites Arm, left (06/29/21 10:09 AM) Temperature Route Oral (06/29/21 10:09 AM) Weight Obtained Via Standing scale (06/29/21 10:09 AM) Social History Social History Type Response Smoking Status Former smoker; Tobac co use times per day: smoked < 1/2 PPD; Started at age: 18; Stopped at age: 65; entered on: 12/23/13 Sex
--- OUTSIDE RECORDS SUMMARY | 2022-12-09 11:31 | XMS_ITS | Continuity of Care Document ---
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 Name Role Phone Luis RICHARD, Kilo Pendleton Primary Care Physician [phone] Encounter [facility] Date(s): 12/27/20 - 01/26/21 [facility] [address] [place] [address]- Allergies, Adverse Reactions, Alerts Substance Reaction Severity [...] 2Admin Note: VIS-GIVEN 3Result Comment: [02/28/2017] [facility]: [id number] 4Location History: [facility] 5Admin Note: VIS 12/18/2010 [...] tablet, 0 Refills, Maintenance, 01/10/21 17:48:00 EDT, [facility] #[id number], 168, cm, 01/10/21 10:40:00 EDT, Height, 72.7, kg, 10/12/20 9:18:00 EDT, Dry Weight Start Date: 01/10/21 Status: Ordered baclofen 5 mg oral tablet 1 tablet = 5 mg, By Mouth, 3 times a day, # 90 tablet, 2 Refills, Maintenance, 01/03/21 8:18:00 EDT, Tablet, [facility] #[id number], Partial fill upon patient request if the [...] 12/28/20 9:56:00 EDT, Route to Pharmacy Electronically, [facility] #[id number], Partial fill... Start Date: 12/28/20 Status: Ordered docusate sodium 100 mg oral capsule 100 mg, 1, capsule, By Mouth, 2 times a day, # 60 capsule, Refills 6, Tot. Refills 6, Maintenance, 01/03/21 8:19:00 EDT, Route to Pharmacy Electronically, [facility] #[id number], Partial fill upon patient request if the prescription is for a sche... Start Date: 01/03/21 Status: Ordered ezetimibe 10 mg oral tablet 1 tablet = 10 mg, By Mouth, Daily, take with atorvastatin, # 30 tablet, 11 Refills, Maintenance, 12/03/20 16:45:00 EDT, Tablet, [facility] #[id number], Partial fill upon patient request if the [...] Maintenance, DX: STROKE I63.9 LIFETIME NEED fax: [phone], 12/05/20 16:06:00 EDT, Supply Start Date: 12/05/20 Status: Ordered Incruse Ellipta 62.5 mcg/inh inhalation powder 1 each, Inhalation, Every 24 hours, doses should be taken at least 24 hours apart repaces spitriva,# 30 each, 11 Refills, Maintenance, 12/04/20 9:56:00 EDT, Powder, [facility] #[id number], Partial fill upon patient request if the [...] 10/30/20 8:19:00 EDT, Route to Pharmacy Electronically, [facility] #[id number], 168, cm, :43:00 EDT, Height, 72.7, kg, [...] 1 Refills, Maintenance, 12/27/20 13:44:00 EDT, Tablet, [facility] #[id number], 168, cm, 12/01/20 9:19:00 EDT, Height, 72.7, kg, 10/12/20 9:18:00 EDT, Dry Weight Start Date: 12/27/20 Stop Date: 06/25/21 Status: Ordered metoprolol 25 mg oral tablet, extended release 12.5 mg, 0.5, tablet, By Mouth, Daily, # 30 tablet, Refills 2, Tot. Refills 2, Maintenance, 01/10/21 11:01:00 EDT, Route to Pharmacy Electronically, [facility] #[id number], Partial fill upon patient request if the prescription is for a schedule I... Start Date: 01/10/21 Status: Ordered nitroglycerin 0.3 mg sublingual tablet 1 tablet = 0.3 mg, Sublingual, Every 5 minutes, PRN as needed for chest pain, not to exceed 3 doses/15 min--if pain persists, seek medical attention, # 100 tablet, 0 Refills, Maintenance, 12/04/20 10:05:00 EDT, Tablet, [facility] #[id number], Par... Start Date: 12/04/20 Status: Ordered omeprazole 20 mg oral enteric coated capsule 1 capsule = 20 mg, By Mouth, Daily, before breakfast, # 90 capsule, 1 Refills, Maintenance, 08/17/20 15:28:00 EDT, EC Capsule, [facility] #[id number], 168, cm, 07/17/20 14:04:00 EST, Height Start Date: 08/17/20 Stop Date: 02/13/21 Status: Ordered oxyCODONE 10 mg oral tablet 1 tablet = 10 mg, By Mouth, Every 4 hours, PRN as needed for pain, chronic back pain, # 168 tablet,0 Refills, Maintenance, 12/26/20 11:00:00 EDT, Tablet, [facility] #[id number], Partial fill upon patient request if the [...] 01/03/21 8:20:00 EDT, Route to Pharmacy Electronically, [facility] #[id number], Partial fill upon patient request if the prescription is for a schedule II opi... Start Date: 01/03/21 Status: Ordered Tub transfer bench Tub transfer bench, See Instructions, # 1 each, Refills 0, Tot. Refills 0, Maintenance, DX: STROKE I63.9 LIFETIME NEED fax: [phone], 12/05/20 16:06:00 EDT, Supply Start Date: 12/05/20 [...] cath September 2020 ef 35%(Confirmed) 10/20/20 Active [facility] current use [...] week 19care ploan reviewed 20comm 2 21PHQ9;2. [place] 4, 22had surgery 2011 23sx pending 24had sx 25seeing ENT 26surgery 1991 27MRI 2006 28possible ITP 29monitor 30Tubular adenoma 2015 Social History Social History Type Response Smoking Status Former smoker; Tobac co use times per day: smoked < 1/2 PPD; Started at age: 18; Stopped at age: 65; entered on: 12/23/13 Sex
--- OUTSIDE RECORDS SUMMARY | 2022-12-09 11:32 | XMS_ITS | Continuity of Care Document ---
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 Name Role Phone Kilo Smith MD Primary Care Physician Encounter [facility] Date(s): 06/26/20 - 07/03/20 [facility] Adult [address] [place] [address]- Encounter Diagnosis Inguinal hernia left(Discharge Diagnosis) - 06/26/20 Attending Physician: Kilo Smith MD Allergies, Adverse [...] 3Result Comment: [02/28/2017] [facility]: [id number] 4[facility] History: [facility] 5Admin Note: VIS 12/18/2010 6Admin Note: VIS given 01/02/10 7Admin Note: vis 03/03 8Result Comment: error 9Admin Note: hep A #1 10Admin Note: vis 01/01 11Admin Note: VIS 12Admin Note: vis-given Medications amLODIPine 5 mg oral tablet 5 mg, 1, tablet, By Mouth, Daily, # 90 tablet, Refills 0, Tot. Refills 0, Maintenance, 03/06/20 15:55:00 EDT, Route to Pharmacy Electronically, [facility], 168, cm, 12/06/19 13:53:00 EDT, [...] 01/25/20 10:28:00 EDT, Route to Pharmacy Electronically, [facility], 168, cm, 12/06/19 13:53:00 EDT, Height Start Date: 01/25/20 Status: Ordered lamotrigine 25 mg oral tablet 25 mg, 1, tablet, By Mouth, 2 times a day, # 180 tablet, Refills 1, Tot. Refills 1, Maintenance, 08/21/20 16:55:00 EDT, Route to Pharmacy Electronically, [facility][id number], 168, cm, 04/18/20 10:07:00 EST, Height Start Date: 08/21/20 Stop Date: 02/17/21 Status: Ordered lamotrigine 25 mg oral tablet 25 mg, 1, tablet, By Mouth, 2 times a day, for 30 days, # 60 tablet, Refills 5, Tot. Refills 5, Hard Stop 08/21/20 16:55:00 EDT, 02/23/20 16:55:00 EDT, Route to Pharmacy Electronically, [facility], 168, cm, 12/06/19 13:53:00 EDT, Height Start Date: 02/23/20 Stop Date: 08/21/20 Status: Ordered lisinopril 20 mg oral tablet 40 mg, 2, tablet, By Mouth, Daily, new dose, # 180 tablet, Refills 1, Tot. Refills 1, Maintenance, 09/08/19 15:55:00 EDT, Route to Pharmacy Electronically, [facility], new dose, 168, cm, 08/16/19 15:58:00 EDT, Height Start Date: 06/13/17 Stop Date: 03/06/20 Status: Ordered metFORMIN 1000 mg oral tablet 1 tablet = 1,000 mg, By Mouth, 2 times a day, with meals, # 180 tablet, 1 Refills, Maintenance, 03/06/20 15:49:00 EDT, Tablet, [facility] 168, cm, 12/06/19 13:53:00 EDT, Height [...] Refills, Maintenance, 09/08/19 15:55:00 EDT, EC Capsule, [facility] 168, cm, 08/16/19 15:58:00 EDT, Height [...] 0 Refills, Maintenance, 06/06/20 11:10:00 EST, Tablet, [facility] #[id number], 06/14/20, 168, cm, 04/18/20 10:07:00 EST, Height [...] 29 Active Tubular adenoma of colon 201 5 another colo;2020(Confirmed) 30 Active Vitamin D deficiency(Confirmed) [...] week 19care ploan reviewed 20comm 2 21PHQ9;2. [place] 4, 22had surgery 2011 23sx pending 24had sx 25seeing ENT 26surgery 1991 27MRI 2006 28possible ITP 29monitor 30Tubular adenoma 2014 Diagnosis Diagnosis Type Effective Dates Health Status Cl inical Service Informant Inguinal hernia left Discharge Diagnosis 06/26/20 Vital Signs Most recent to oldest [Reference Range]: 1 2 Height 168 cm (06/26/20 9:34 AM) 168 cm (06/26/20 9:30 AM) Weight 74.4 kg (06/26/20 9:30 AM) Oxygen Saturation [94-100 %] 98 % (06/26/20 9:30 AM) Pulse Rate [55-90 bpm] 88 bpm (06/26/20 9:30 AM) Body Mass Index [18.5-24.99] 26.36 *H* (06/26/20 9:30 AM) Blood Pressure [90-138/55-84 mm Hg] 138/ 62mm Hg (06/26/20 9:34 AM) 150/60mm Hg *H* (06/26/20 9:30 AM) Respiratory Rate [16-30 br/min] 16 br/mi n (06/26/20 9:30 AM) Blood pressure sites Arm, left (06/26/20 9:34 AM) Arm, left (06/26/20 9:30 AM) Social History Social History Type Response Smoking Status Former smoker; Tobac co use times per day: smoked < 1/2 PPD; Started at age: 18; Stopped at age: 65; entered on: 12/23/13 Sex
--- OUTSIDE RECORDS SUMMARY | 2022-12-09 11:32 | XMS_ITS | Continuity of Care Document ---
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 Phone Luis RICHARD, Kilo Pendleton Primary Care Physician [phone] Encounter [facility] Date(s): 09/22/19 - 10/22/19 [facility] [address] [place] [address]- [facility] Attending Physician: Mitesh Lopez Admitting [...] VIS 2Admin Note: VIS-GIVEN 3Result Comment: [02/28/2017] [facility]: [id number] 4Location History: [facility] 5Admin Note: VIS 12/18/2010 6Admin Note: VIS given 01/02/10 7Admin Note: vis 03/03 8Result Comment: error 9Admin Note: hep A #1 10Admin Note: vis 01/01 11Admin Note: VIS 12Admin Note: vis-given Medications amLODIPine 5 mg oral tablet 5 mg, 1, tablet, By Mouth, Daily, # 90 tablet, Refills 1, Tot. Refills 1, Maintenance, 09/08/19 15:55:00 EDT, Route to Pharmacy Electronically, [facility], 168, cm, 08/16/19 15:58:00 EDT, Height Start [...] 5 Refills, Maintenance, 10/06/19 15:53:00 EDT, Tablet, [facility], 168, cm, 08/16/19 15:58:00 EDT, Height Start Date: 10/06/19 Stop Date: 04/03/20 Status: Ordered Flonase 50 mcg/inh nasal spray 1 sprays, Nares, Both, 2 times a day, # 1 each, 3 Refills, Maintenance, 05/07/16 9:37:51, [place], 1 sprays Nares, Both 2 times a [...] 03/23/19 10:06:18 EDT, Route to Pharmacy Electronically, [id number], [facility] Start Date: 03/23/19 Status: Ordered lamotrigine 25 mg oral tablet 25 mg, 1, tablet, By Mouth, 2 times a day, # 60 tablet, Refills 5, Tot. Refills 5, Maintenance, 05/17/19 16:10:00 EST, Route to Pharmacy Electronically, [facility], 168, cm, 05/17/19 16:06:00 EST, Height Start Date: 05/17/19 Stop Date: 11/13/19 Status: Ordered lisinopril 20 mg oral tablet 40 mg, 2, tablet, By Mouth, Daily, new dose, # 180 tablet, Refills 1, Tot. Refills 1, Maintenance, 09/08/19 15:55:00 EDT, Route to Pharmacy Electronically, [facility], new dose, 168, cm, 08/16/19 15:58:00 EDT, Height Start Date: 06/13/17 Stop Date: 03/06/20 Status: Ordered loratadine 10 mg oral tablet 10 mg, 1, tablet, By Mouth, Daily, for seasonal allergies, # 30 tablet, Refills 2, Tot. Refills 2, Maintenance, 10/17/16 11:37:04, Route to Pharmacy Electronically, [id number], [facility] Start Date: 10/17/16 Status: Ordered metFORMIN 1000 mg oral tablet 1 tablet = 1,000 mg, By Mouth, 2 times a day, with meals, # 180 tablet, 1 Refills, Maintenance, 09/08/19 15:49:00 EDT, Tablet, [facility], 168, cm, 08/16/19 15:58:00 EDT, Height Start [...] see pharamcy note, 06/13/17 11:20:27, Narcan Nasal [place]: 4 mg (contents of 1 nasal spray): Narcan Nasal [place]: 4 mg (contents of 1 nasal spray), [...] Refills, Maintenance, 09/08/19 15:55:00 EDT, EC Capsule, [facility], 168, cm, 08/16/19 15:58:00 EDT, Height Start Date: 09/08/19 Stop Date: 03/06/20 Status: Ordered One Touch Ultra Test Strips See Instructions, # 1 box, Refills 11, Tot. 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 [place] 4, 22had surgery 2011 23sx pending 24had sx 25seeing ENT 26surgery 1991 27MRI 2006 28possible ITP 29monitor 30Tubular adenoma 2014 Social History Social History Type Response Smoking Status Former smoker; Tobac co use times per day: smoked < 1/2 PPD; Started at age: 18; Stopped at age: 65; entered on: 12/23/13 Sex
--- OUTSIDE RECORDS SUMMARY | 2022-12-09 11:32 | XMS_ITS | Continuity of Care Document ---
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(Discharge Diagnosis) - 01/30/21 Facial swelling(Discharge Diagnosis) - 01/30/21 Benign Essential Hypertension(Discharge Diagnosis) - 01/30/21 Attending Physician: Leticia Foster NP Allergies, Adverse Reactions, [...] VIS 2Admin Note: VIS-GIVEN 3Result Comment: [02/28/2017] [facility]: [id number] [facility] 5Admin Note: VIS 12/18/2010 [...] tablet, 3 Refills, Maintenance, 02/05/21 8:58:00 EDT, [facility] #[id number], 168, cm, 01/30/21 11:10:00 EDT, Height, 72.7, [...] 2 Refills, Maintenance, 01/03/21 8:18:00 EDT, Tablet, [facility] #[id number], Partial fill upon patient request if the [...] 12/28/20 9:56:00 EDT, Route to Pharmacy Electronically, [facility] #[id number], Partial fill... Start Date: 12/28/20 Status: Ordered docusate sodium 100 mg oral capsule 100 mg, 1, capsule, By Mouth, 2 times a day, # 60 capsule, Refills 6, Tot. Refills 6, Maintenance, 01/03/21 8:19:00 EDT, Route to Pharmacy Electronically, [facility] #[id number], Partial fill upon patient request if the prescription is for a sche... Start Date: 01/03/21 Status: Ordered ezetimibe 10 mg oral tablet 1 tablet = 10 mg, By Mouth, Daily, take with atorvastatin, # 30 tablet, 11 Refills, Maintenance, 12/03/20 16:45:00 EDT, Tablet, [facility] #[id number], Partial fill upon patient request if the [...] Maintenance, DX: STROKE I63.9 LIFETIME NEED fax: [phone], 12/05/20 16:06:00 EDT, Supply Start Date: 12/05/20 Status: Ordered Incruse Ellipta 62.5 mcg/inh inhalation powder 1 each, Inhalation, Every 24 hours, doses should be taken at least 24 hours apart repaces spitriva,# 30 each, 11 Refills, Maintenance, 12/04/20 9:56:00 EDT, Powder, [facility] #[id number], Partial fill upon patient request if the prescription i... Start Date: 12/04/20 Status: Ordered isosorbide mononitrate 30 mg oral tablet, extended release 1 tablet, By Mouth, Daily in AM, # 30 tablet, 0 Refills, [facility] #[id number], 168, cm, 01/10/21 10:40:00 EDT, Height, 72.7, kg, 10/12/20 9:18:00 EDT, Dry Weight Start Date: 01/28/21 Status: Ordered isosorbide mononitrate 30 mg oral tablet, extended release 1 tablet, By Mouth, Daily in AM, # 30 tablet, 0 Refills, [facility] #[id number], 168, cm, 01/10/21 10:40:00 EDT, Height, 72.7, kg, 10/12/20 9:18:00 EDT, Dry Weight Start Date: 01/28/21 Status: Ordered lamotrigine 25 mg oral tablet 25 mg, 1, tablet, By Mouth, 2 times a day, # 180 tablet, Refills 1, Tot. Refills 1, Maintenance, 10/30/20 8:19:00 EDT, Route to Pharmacy Electronically, [facility] #[id number], 168, cm, 216:43:00 EDT, Height, 72.7, kg, [...] 1 Refills, Maintenance, 12/27/20 13:44:00 EDT, Tablet, [facility] #[id number], 168, cm, 12/01/20 9:19:00 EDT, Height, 72.7, kg, 10/12/20 9:18:00 EDT, Dry Weight Start Date: 12/27/20 Stop Date: 06/25/21 Status: Ordered metoprolol 25 mg oral tablet, extended release 12.5 mg, 0.5, tablet, By Mouth, Daily, # 30 tablet, Refills 2, Tot. Refills 2, Maintenance, 01/10/21 11:01:00 EDT, Route to Pharmacy Electronically, [facility] #[id number], Partial fill upon patient request if the prescription is for a schedule I... Start Date: 01/10/21 Status: Ordered nitroglycerin 0.3 mg sublingual tablet 1 tablet = 0.3 mg, Sublingual, Every 5 minutes, PRN as needed for chest pain, not to exceed 3 doses/15 min--if pain persists, seek medical attention, # 100 tablet, 0 Refills, Maintenance, 12/04/20 10:05:00 EDT, Tablet, [facility] #[id number], Par... Start Date: 12/04/20 Status: Ordered omeprazole 20 mg oral enteric coated capsule 1 capsule = 20 mg, By Mouth, Daily, for 90 days, before breakfast, # 90 capsule, 1 Refills, Hard Stop 02/13/21 15:28:00 EDT, 08/17/20 15:28:00 EDT, EC Capsule, [facility] #[id number], 168, cm, 07/17/20 14:04:00 EST, Height Start Date: 08/17/20 Stop Date: 02/13/21 Status: Ordered omeprazole 20 mg oral enteric coated capsule 1 capsule = 20 mg, By Mouth, Daily, before breakfast, # 90 capsule, 0 Refills, Maintenance, 02/13/21 15:28:00 EDT, EC Capsule, [facility] #[id number], 168, cm, 02/05/21 14:18:00 EDT, Height, 72.7, [...] tablet,0 Refills, Maintenance, 01/30/21 15:55:00 EDT, Tablet, [facility] #[id number], Partial fill upon patient request if the [...] 01/03/21 8:20:00 EDT, Route to Pharmacy Electronically, [facility] #[id number], Partial fill upon patient request if the prescription is for a schedule II opi... Start Date: 01/03/21 Status: Ordered Tub transfer bench Tub transfer bench, See Instructions, # 1 each, Refills 0, Tot. 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 Discharge Diagnosis 01/30/21 Facial swelling Discharge Diagnosis 01/30/21 Benign Essential Hypertension Discharge Diagnosis 01/30/21 Vital Signs Most recent to oldest [Reference Range]: 1 2 Height 168 cm (01/30/21 11:10 AM) 168 cm (01/30/21 10:45 AM) Weight 74.1 kg (01/30/21 10:45 AM) Oxygen Saturation [94-100 %] 98 % (01/30/21 10:45 AM) Pulse Rate [55-90 bpm] 90 bpm (01/30/21 10:45 AM) Body Mass Index [18.5-24.99] 26.25 *H* (01/30/21 10:45 AM) Blood Pressure [90-138/55-84 mm Hg] 140/ 70mm Hg *H* (01/30/21 11:10 AM) 144/68mm Hg *H* (01/30/21 10:45 AM) Respiratory Rate [16-30 br/min] 18 br/mi n (01/30/21 10:45 AM) Temperature [96.8-100.4 DegF] 98.7 DegF (01/30/21 10:45 AM) Mode of Delivery (Oxygen) Room air (01/30/21 10:45 AM) Blood pressure sites Arm, left (01/30/21 11:10 AM) Arm, right (01/30/21 10:45 AM) Temperature Route Oral (01/30/21 10:45 AM) Weight Obtained Via Standing scale (01/30/21 10:45 AM) Social History Social History Type Response Smoking Status Former smoker; Tobac co use times per day: smoked < 1/2 PPD; Started at age: 18; Stopped at age: 65; entered on: 12/23/13 Sex
--- OUTSIDE RECORDS SUMMARY | 2022-12-09 11:32 | XMS_ITS | Continuity of Care Document ---
Author Name Unknown Organization [facility] Alessandro Cruz Sidney lt Address [address] [place] [address]- Care Team Providers Care Performance Solutions Specialist Name Role Phone Luis RICHARD, Kilo Pendleton Primary Care Physician Encounter [facility] [place] Date(s): 11/15/21 - 12/15/21 [facility] Adult [address] [place] [address]- Attending Physician: Admtr, Ar8 Admitting Physician: Admtr, ArJuliocesar Referring Physician: Admtr, Ar8 Allergies, Adverse Reactions, Alerts Substance Reaction Severity Status Duloxetine 1 rash Active 1GI Immunizations Given and Recorded Vaccine Date Status Refusal Reason SARS-CoV-2 mRNA ([id number]) vax 1 06/29/21 Given influenza virus vaccine, [...] Vaccine (oldterm) 14 03/11/06 Given 1Result Comment: [facility]-[id number] 2Result Comment: [facility]: [id number] 3Result Comment: [02/28/2017] [facility]: [id number] 4[facility] 5Admin Note: VIS 12/18/2010 [...] 0 Refills, Maintenance, 07/17/21 12:08:00 EST, Tablet, [facility][id number], Partial fill upon patient request if the [...] tablet, 3 Refills, Maintenance, 02/05/21 8:58:00 EDT, [facility] #[id number], 168, cm, 01/30/21 11:10:00 EDT, Height, 72.7, kg, 10/12/20 9:18:00 EDT, Dry Weight Start Date: 02/05/21 Status: Ordered baclofen 10 mg oral tablet 0.5, tablet, By Mouth, 3 times a day, # 45 tablet, Refills 0, Tot. Refills 0, 08/14/21 13:16:00 EDT, Route to Pharmacy Electronically, [facility] #[id number], 168, cm, 08/01/21 9:15:00 EST, Height, 72.7, kg, 10/12/20 9:18:00 EDT, Dry Weight Start Date: 08/14/21 Status: Ordered clopidogrel 75 mg oral tablet 75 mg, 1, tablet, By Mouth, Daily, Continue medication through 09/2021 unless otherwise instructed.,# 90 tablet, Refills 3, Tot. Refills 3, Maintenance, 12/28/20 9:56:00 EDT, Route to Pharmacy Electronically, [facility] #[id number], Partial fill... Start Date: 12/28/20 Status: Ordered Coreg 3.125 mg oral tablet 3.125 mg, 1, tablet, By Mouth, 2 times a day, # 60 tablet, Refills 11, Tot. Refills 11, Maintenance, 08/01/21 9:34:00 EST, Route to Pharmacy Electronically, [facility] #[id number], Partial fill upon patient request if the prescription is for a sc... Start Date: 08/01/21 Stop Date: 07/27/22 Status: Ordered docusate sodium 100 mg oral capsule 100 mg, 1, capsule, By Mouth, 2 times a day, # 60 capsule, Refills 6, Tot. Refills 6, Maintenance, 01/03/21 8:19:00 EDT, Route to Pharmacy Electronically, [facility] #[id number], Partial fill upon patient request if the prescription is for a sche... Start Date: 01/03/21 Status: Ordered ezetimibe 10 mg oral tablet 1 tablet = 10 mg, By Mouth, Daily, take with atorvastatin, # 30 tablet, 11 Refills, Maintenance, 11/15/21 14:23:00 EDT, Tablet, [facility] #[id number], Partial fill upon patient request if the prescription is for a schedule II opioid drug., 168,... Start Date: 11/15/21 Status: Ordered Farxiga 10 mg oral tablet 1 tablet = 10 mg, By Mouth, Daily, Increased strength, # 30 tablet, 0 Refills, Maintenance, 11/15/21 13:19:00 EDT, Tablet, [facility] #[id number], Increased strength, 168, cm, 11/15/21 12:59:00 EDT, [...] 11 Refills, Maintenance, 12/04/20 9:56:00 EDT, Powder, [facility] #[id number], Partial fill upon patient request if the prescription i... Start Date: 12/04/20 Status: Ordered isosorbide mononitrate 30 mg oral tablet, extended release 1 tablet, By Mouth, Daily in AM, # 30 tablet, 0 Refills, [facility] #[id number], 168, cm, 01/10/21 10:40:00 EDT, Height, 72.7, kg, 10/12/20 9:18:00 EDT, Dry Weight Start Date: 01/28/21 Status: Ordered lamotrigine 25 mg oral tablet 25 mg, 1, tablet, By Mouth, 2 times a day, # 180 tablet, Refills 1, Tot. Refills 1, Maintenance, 07/11/21 13:45:00 EST, Route to Pharmacy Electronically, [facility] #[id number], 168, cm, 07/06/21 13:13:00 EST, Height, 72.7, [...] 02/21/21 16:10:00 EDT, Route to Pharmacy Electronically, [facility] #[id number], Partial fill upon patient request if the prescription is for a schedule II opi... Start Date: 02/21/21 Status: Ordered nitroglycerin 0.3 mg sublingual tablet 1 tablet = 0.3 mg, Sublingual, Every 5 minutes, PRN as needed for chest pain, not to exceed 3 doses/15 min--if pain persists, seek medical attention, # 100 tablet, 0 Refills, Maintenance, 12/04/20 10:05:00 EDT, Tablet, [facility] #[id number], Par... Start Date: 12/04/20 Status: Ordered omeprazole 20 mg oral enteric coated capsule 1 capsule = 20 mg, By Mouth, Daily, before breakfast, # 90 capsule, 0 Refills, Maintenance, 11/15/21 14:21:00 EDT, EC Capsule, [facility] #[id number], 168, cm, 11/15/21 12:59:00 EDT, Height, 88.5, kg, 11/04/21 16:51:00 EDT, Dry Weight Start Date: 11/15/21 Stop Date: 02/13/22 Status: Ordered oxyCODONE 10 mg oral tablet 1 tablet = 10 mg, By Mouth, Every 4 hours, PRN as needed for pain, chronic back pain, # 168 tablet,0 Refills, Maintenance, 12/04/21 8:58:00 EDT, Tablet, [facility] #[id number], Partial fill upon patient request if the prescription is for a sched... Start Date: 12/04/21 Status: Ordered Vitamin C 500 mg oral [...]
--- OUTSIDE RECORDS SUMMARY | 2022-12-09 11:32 | XMS_ITS | Continuity of Care Document ---
Author Name Unknown Organization 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 Machine Operator Name Role Phone Kristin Leticia SIMS Primary Care Physician [phone] Encounter [facility] Date(s): 07/01/22 - 07/31/22 [facility] Adult [address] [place] [address]- Allergies, Adverse Reactions, Alerts Substance Reaction Severity [...] inactivated 6 08/01/10 Gi radha SARS-CoV-2 mRNA ([id number]) vax 7 06/29/21 Given SARS-CoV-2 (COVID-19) mRNA [...] Vaccine (oldterm) 15 03/11/06 Given 1Result Comment: [facility]-[id number] 2Result Comment: [facility]: [id number] 3Result Comment: [02/28/2017] HD [facility]: [id number] 4[facility] 5Admin Note: VIS 12/18/2010 6Admin Note: VIS given 01/02/10 7Result Comment: [facility]-[id number] 8Admin Note: VIS 9Admin Note: VIS-GIVEN 10Admin [...] 0 Refills, Maintenance, 06/03/22 11:01:00 EST, Tablet, [facility] #[id number], Partial fill upon patient request if the [...] tablet, 1 Refills, Maintenance, 01/22/22 12:14:00 EDT, [facility] #[id number], 168, cm, 12/26/21 15:45:00 EDT, Height, 88.5, kg, 11/04/21 16:51:00 EDT, Dry Weight Start Date: 01/22/22 Status: Ordered clopidogrel 75 mg oral tablet 75 mg, 1, tablet, By Mouth, Daily, Continue medication through 09/2021 unless otherwise instructed.,# 90 tablet, Refills 3, Tot. Refills 3, Maintenance, 12/28/20 9:56:00 EDT, Route to Pharmacy Electronically, [facility] #[id number], Partial fill... Start Date: 12/28/20 Status: Ordered Coreg 6.25 mg oral tablet 6.25 mg, 1, tablet, By Mouth, 2 times a day, # 60 tablet, Refills 0, Tot. Refills 0, Maintenance, 04/08/22 15:17:00 EST, [facility], Partial fill upon patient request if the prescription is for a schedul... Start Date: 04/08/22 Status: Ordered Farxiga 10 mg oral tablet 1 tablet = 10 mg, By Mouth, Daily, Increased strength, # 30 tablet, 0 Refills, Maintenance, 01/16/22 9:53:00 EDT, Tablet, [facility] #[id number], Increased strength, 168, cm, 12/26/21 15:45:00 EDT, [...] 05/02/22 13:11:00 EST, Route to Pharmacy Electronically, [facility] #[id number], Partial fill upon patient request if the prescription is for a schedule... Start Date: 05/02/22 Stop Date: 10/29/22 Status: Ordered lamotrigine 25 mg oral tablet 25 mg, 1, tablet, By Mouth, 2 times a day, # 180 tablet, Refills 1, Tot. Refills 1, Maintenance, 01/22/22 12:14:00 EDT, Route to Pharmacy Electronically, [facility] #[id number], 168, cm, 12/26/21 15:45:00 EDT, Height, 88.5, kg, 11/04/21 16:51:00... Start Date: 01/22/22 Status: Ordered lisinopril 5 mg oral tablet 5 mg, 1, tablet, By Mouth, Daily, # 90 tablet, Refills 3, Tot. Refills 3, Maintenance, 03/10/22 22:37:00 EDT, Route to Pharmacy Electronically, [facility] #[id number], Partial fill upon patient request if the prescription is for a schedule II opi... Start Date: 03/10/22 Status: Ordered nitroglycerin 0.3 mg sublingual tablet 1 tablet = 0.3 mg, Sublingual, Every 5 minutes, PRN as needed for chest pain, not to exceed 3 doses/15 min--if pain persists, seek medical attention, # 100 tablet, 0 Refills, Maintenance, 12/04/20 10:05:00 EDT, Tablet, [facility] #[id number], Par... Start Date: 12/04/20 Status: Ordered oxyCODONE 10 mg oral tablet 1 tablet = 10 mg, By Mouth, Every 4 hours, PRN as needed for pain, # 168 tablet, 0 Refills, Maintenance, 07/30/22 12:22:00 EST, Tablet, [facility] #[id number], Partial fill upon patient request if the prescription is for a schedule II opioid drug... 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 [place] 4, 19surgery 1991 20MRI 2006 21possible ITP 22monitor 23Tubular adenoma 2015 Social History Social History Type Response Smoking Status Former smoker; Tobac co use times per day: smoked < 1/2 PPD; Started at age: 18; Stopped at age: 65; entered on: 12/23/13 Sex Patient Care team information Care Team Personnel Name: Philomena Castillo Position: [facility] RN Supv Member Role: Primary Care Nurse Name: Leticia Foster NP Position: [facility] PCO Associate Professional Member Role: PCP Address: Address: [address] [place] [address] [facility] [place] [address]- Name: Namita Barajas RN Position: S RN [...] Care Nurse Name: Cate Pabon RN Position: [facility] PCO RN Member Role: Primary Care Nurse Name: Janette Jones RN Position: S RN Member Role: Primary Care Nurse Name: Vianney Mcneill RN Position: S RN Member Role: Primary Care Nurse Name: Cindy Evans LPN Position: S RN Member Role: Primary Care Nurse Care Team Related Persons Name: INGE MURRAY Address: [address] [place] [address] Name: NIK BARTON Address: [place] [address]
--- OUTSIDE RECORDS SUMMARY | 2022-12-09 11:32 | XMS_ITS | Continuity of Care Document ---
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 Name Role Phone Kilo Smith MD Primary Care Physician Encounter [facility] Date(s): 12/26/21 - 01/02/22 [facility] Adult [address] [place] [address]- Encounter Diagnosis H/O lumbar discectomy 1991(Discharge Diagnosis) - 12/25/21 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(Discharge Diagnosis) - 12/25/21 Failed back syndrome sx 1991(Discharge Diagnosis) - 12/26/21 Attending Physician: Kilo Smith MD Allergies, Adverse Reactions, Alerts Substance Reaction Severity Status Duloxetine 1 rash Active 1GI Immunizations Given and Recorded Vaccine Date Status Refusal Reason SARS-CoV-2 mRNA ([id number]) vax 1 06/29/21 Given influenza virus vaccine, [...] 14 03/11/06 Given 1Result Comment: [facility]-[id number] 2Result Comment: [facility]: [id number] 3Result Comment: [02/28/2017] [facility]: [id number] 4[facility] 5Admin Note: VIS 12/18/2010 [...] Refills, Maintenance, 07/17/21 12:08:00 EST, Tablet, [facility] #[id number], Partial fill upon patient request if the [...] tablet, 3 Refills, Maintenance, 02/05/21 8:58:00 EDT, [id number], 168, cm, 01/30/21 11:10:00 EDT, Height, 72.7, kg, 10/12/20 9:18:00 EDT, Dry Weight Start Date: 02/05/21 Status: Ordered baclofen 10 mg oral tablet 0.5, tablet, By Mouth, 3 times a day, # 45 tablet, Refills 0, Tot. Refills 0, 08/14/21 13:16:00 EDT, Route to Pharmacy Electronically, [facility] #[id number], 168, cm, 08/01/21 9:15:00 EST, Height, 72.7, kg, 10/12/20 9:18:00 EDT, Dry Weight Start Date: 08/14/21 Status: Ordered clopidogrel 75 mg oral tablet 75 mg, 1, tablet, By Mouth, Daily, Continue medication through 09/2021 unless otherwise instructed.,# 90 tablet, Refills 3, Tot. Refills 3, Maintenance, 12/28/20 9:56:00 EDT, Route to Pharmacy Electronically, [facility] #[id number], Partial fill... Start Date: 12/28/20 Status: Ordered Coreg 3.125 mg oral tablet 3.125 mg, 1, tablet, By Mouth, 2 times a day, # 60 tablet, Refills 11, Tot. Refills 11, Maintenance, 08/01/21 9:34:00 EST, Route to Pharmacy Electronically, [facility] #[id number], Partial fill upon patient request if the prescription is for a sc... Start Date: 08/01/21 Stop Date: 07/27/22 Status: Ordered docusate sodium 100 mg oral capsule 100 mg, 1, capsule, By Mouth, 2 times a day, # 60 capsule, Refills 6, Tot. Refills 6, Maintenance, 01/03/21 8:19:00 EDT, Route to Pharmacy Electronically, [facility] #[id number], Partial fill upon patient request if the prescription is for a sche... Start Date: 01/03/21 Status: Ordered ezetimibe 10 mg oral tablet 1 tablet = 10 mg, By Mouth, Daily, take with atorvastatin, # 30 tablet, 11 Refills, Maintenance, 11/15/21 14:23:00 EDT, Tablet, [facility] #07243, Partial fill upon patient request if the prescription is for a schedule II opioid drug., 168,... Start Date: 11/15/21 Status: Ordered Farxiga 10 mg oral tablet 1 tablet = 10 mg, By Mouth, Daily, Increased strength, # 30 tablet, 0 Refills, Maintenance, 11/15/21 13:19:00 EDT, Tablet, [facility] #07745, Increased strength, 168, cm, 11/15/21 12:59:00 EDT, [...] 11 Refills, Maintenance, 12/04/20 9:56:00 EDT, Powder, [facility] #10384, Partial fill upon patient request if the prescription i... Start Date: 12/04/20 Status: Ordered isosorbide mononitrate 30 mg oral tablet, extended release 1 tablet, By Mouth, Daily in AM, # 30 tablet, 0 Refills, [facility] #[id number], 168, cm, 01/10/21 10:40:00 EDT, Height, 72.7, kg, 10/12/20 9:18:00 EDT, Dry Weight Start Date: 01/28/21 Status: Ordered lamotrigine 25 mg oral tablet 25 mg, 1, tablet, By Mouth, 2 times a day, # 180 tablet, Refills 1, Tot. Refills 1, Maintenance, 07/11/21 13:45:00 EST, Route to Pharmacy Electronically, [facility] #[id number], 168, cm, 07/06/21 13:13:00 EST, Height, 72.7, [...] 02/21/21 16:10:00 EDT, Route to Pharmacy Electronically, [facility] #[id number], Partial fill upon patient request if the prescription is for a schedule II opi... Start Date: 02/21/21 Status: Ordered nitroglycerin 0.3 mg sublingual tablet 1 tablet = 0.3 mg, Sublingual, Every 5 minutes, PRN as needed for chest pain, not to exceed 3 doses/15 min--if pain persists, seek medical attention, # 100 tablet, 0 Refills, Maintenance, 12/04/20 10:05:00 EDT, Tablet, [facility] #03693, Par... Start Date: 12/04/20 Status: Ordered omeprazole 20 mg oral enteric coated capsule 1 capsule = 20 mg, By Mouth, Daily, before breakfast, # 90 capsule, 0 Refills, Maintenance, 11/15/21 14:21:00 EDT, EC Capsule, [facility] #85352, 168, cm, 11/15/21 12:59:00 EDT, Height, 88.5, kg, 11/04/21 16:51:00 EDT, Dry Weight Start Date: 11/15/21 Stop Date: 02/13/22 Status: Ordered oxyCODONE 10 mg oral tablet 1 tablet = 10 mg, By Mouth, Every 4 hours, PRN as needed for pain, chronic back pain, # 168 tablet,0 Refills, Maintenance, 01/01/22 9:45:00 EDT, Tablet, [facility] #[id number], Partial fill upon patient request if the [...] ef 35%/Echo Sept 2020 40-45%(Confirmed) 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 Discharge Diagnosis 12/25/21 Failed back syndrome sx 1991 Discharge Diagnosis 12/26/21 Vital Signs Most recent to oldest [Reference Range]: 1 2 Height 168 cm (12/26/21 3:45 PM) 168 cm (12/26/21 3:35 PM) Weight 74.8 kg (12/26/21 3:35 PM) Oxygen Saturation [94-100 %] 99 % (12/26/21 3:35 PM) Pulse Rate [55-90 bpm] 79 bpm (12/26/21 3:35 PM) Body Mass Index [18.5-24.99] 26.5 *H* (12/26/21 3:35 PM) Blood Pressure [90-138/55-84 mm Hg] 120/ 80mm Hg (12/26/21 3:45 PM) 18/68mm Hg *L* (12/26/21 3:35 PM) Blood pressure sites Arm, left (12/26/21 3:45 PM) Arm, left (12/26/21 3:35 PM) Weight Obtained Via Standing scale (12/26/21 3:35 PM) Social History Social History Type Response Smoking Status Former smoker; Tobac co use times per day: smoked < 1/2 PPD; Started at age: 18; Stopped at age: 65; entered on: 12/23/13 Sex
--- OUTSIDE RECORDS SUMMARY | 2022-12-09 11:32 | XMS_ITS | Continuity of Care Document ---
Author Name Unknown Organization [facility] Address [address] [place] [address]- Care Team Providers Care Shaping Machine Tender Name Role Phone Kilo Smith MD Primary Care Physician Encounter [facility] [place] Date(s): 08/17/19 - 10/22/19 [facility] [address] [place] [address]- [facility] Attending Physician: Kilo Smith MD Admitting Physician: Kilo Smith MD Referring Physician: Kilo Smith MD Allergies, [...] VIS 2Admin Note: VIS-GIVEN 3Result Comment: [02/28/2017] [facility]: [id number] 4Location History: [facility] 5Admin Note: VIS 12/18/2010 6Admin Note: VIS given 01/02/10 7Admin Note: vis 03/03 8Result Comment: error 9Admin Note: hep A #1 10Admin Note: vis 01/01 11Admin Note: VIS 12Admin Note: vis-given Medications amLODIPine 5 mg oral tablet 5 mg, 1, tablet, By Mouth, Daily, # 90 tablet, Refills 1, Tot. Refills 1, Maintenance, 09/08/19 15:55:00 EDT, Route to Pharmacy Electronically, [facility], 168, cm, 08/16/19 15:58:00 EDT, Height [...] 5 Refills, Maintenance, 10/06/19 15:53:00 EDT, Tablet, [facility], 168, cm, 08/16/19 15:58:00 EDT, Height Start Date: 10/06/19 Stop Date: 04/03/20 Status: Ordered Flonase 50 mcg/inh nasal spray 1 sprays, Nares, Both, 2 times a day, # 1 each, 3 Refills, Maintenance, 05/07/16 9:37:51, [place], 1 sprays Nares, Both 2 times a [...] 03/23/19 10:06:18 EDT, Route to Pharmacy Electronically, [id number], [facility] Start Date: 03/23/19 Status: Ordered lamotrigine 25 mg oral tablet 25 mg, 1, tablet, By Mouth, 2 times a day, # 60 tablet, Refills 5, Tot. Refills 5, Maintenance, 05/17/19 16:10:00 EST, Route to Pharmacy Electronically, [facility] 168, cm, 05/17/19 16:06:00 EST, Height Start Date: 05/17/19 Stop Date: 11/13/19 Status: Ordered lisinopril 20 mg oral tablet 40 mg, 2, tablet, By Mouth, Daily, new dose, # 180 tablet, Refills 1, Tot. Refills 1, Maintenance, 09/08/19 15:55:00 EDT, Route to Pharmacy Electronically, [facility], new dose, 168, cm, 08/16/19 15:58:00 EDT, Height Start Date: 06/13/17 Stop Date: 03/06/20 Status: Ordered loratadine 10 mg oral tablet 10 mg, 1, tablet, By Mouth, Daily, for seasonal allergies, # 30 tablet, Refills 2, Tot. Refills 2, Maintenance, 10/17/16 11:37:04, Route to Pharmacy Electronically, [id number], [facility] Start Date: 10/17/16 Status: Ordered metFORMIN 1000 mg oral tablet 1 tablet = 1,000 mg, By Mouth, 2 times a day, with meals, # 180 tablet, 1 Refills, Maintenance, 09/08/19 15:49:00 EDT, Tablet, [facility], 168, cm, 08/16/19 15:58:00 EDT, Height [...] see pharamcy note, 06/13/17 11:20:27, Narcan Nasal [place]: 4 mg (contents of 1 nasal spray): Narcan Nasal [place]: 4 mg (contents of 1 nasal spray), [...] Refills, Maintenance, 09/08/19 15:55:00 EDT, EC Capsule, [facility], 168, cm, 08/16/19 15:58:00 EDT, Height [...] 0 Refills, Maintenance, 10/19/19 12:19:00 EDT, Tablet, [facility], 10/27/19, 168, cm, 08/16/19 15:58:00 EDT, Height [...] Hx of adenomatous colonic polyps(Confirmed) 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 [place] 4, 22had surgery 2011 23sx pending 24had sx 25seeing ENT 26surgery 1991 27MRI 2006 28possible ITP 29monitor 30Tubular adenoma 2015 Social History Social History Type Response Smoking Status Former smoker; Tobac co use times per day: smoked < 1/2 PPD; Started at age: 18; Stopped at age: 65; entered on: 12/23/13 Sex
--- OUTSIDE RECORDS SUMMARY | 2022-12-09 11:32 | XMS_ITS | Continuity of Care Document ---
Author Name Unknown Organization [facility] Sidney lt Address [address] [place] [address]- Care Team Providers Care Cigar Brander Name Role Phone Luis RICHARD, Kilo Pendleton Primary Care Physician Encounter [facility] Date(s): 11/24/20 - 12/24/20 [facility] Adult [address] [place] [address]- Allergies, Adverse Reactions, Alerts Substance Reaction Severity [...] 2Admin Note: VIS-GIVEN 3Result Comment: [02/28/2017] [facility]: [id number] 4Location History: [facility] 5Admin Note: VIS 12/18/2010 [...] 11 Refills, Maintenance, 12/03/20 16:45:00 EDT, Tablet, [facility] #[id number], Partial fill upon patient request if the [...] Maintenance, DX: STROKE I63.9 LIFETIME NEED fax: [phone], 12/05/20 16:06:00 EDT, Supply Start Date: 12/05/20 Status: Ordered Incruse Ellipta 62.5 mcg/inh inhalation powder 1 each, Inhalation, Every 24 hours, doses should be taken at least 24 hours apart repaces spitriva,# 30 each, 11 Refills, Maintenance, 12/04/20 9:56:00 EDT, Powder, [facility] #[id number], Partial fill upon patient request if the [...] 10/30/20 8:19:00 EDT, Route to Pharmacy Electronically, [facility] #[id number], 168, cm, 216:43:00 EDT, Height, 72.7, kg, [...] 1 Refills, Maintenance, 03/06/20 15:49:00 EDT, Tablet, [facility], 168, cm, 12/06/19 13:53:00 EDT, Height Start Date: 03/06/20 Stop Date: 09/02/20 Status: Ordered nitroglycerin 0.3 mg sublingual tablet 1 tablet = 0.3 mg, Sublingual, Every 5 minutes, PRN as needed for chest pain, not to exceed 3 doses/15 min--if pain persists, seek medical attention, # 100 tablet, 0 Refills, Maintenance, 12/04/20 10:05:00 EDT, Tablet, [facility] #[id number], Par... 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 [place] 4, 22had surgery 2011 23sx pending 24had sx 25seeing ENT 26surgery 1991 27MRI 2006 28possible ITP 29monitor 30Tubular adenoma 2014 Social History Social History Type Response Smoking Status Former smoker; Tobac co use times per day: smoked < 1/2 PPD; Started at age: 18; Stopped at age: 65; entered on: 12/23/13 Sex
--- OUTSIDE RECORDS SUMMARY | 2022-12-09 11:32 | XMS_ITS | Continuity of Care Document ---
Author Name Unknown Organization [facility] Address [address] [place] [address] ve [address] [place] [address]- Care Team Providers Care Put In Beat Adjuster Name Role Phone Kilo Simth MD Primary Care Physician Encounter [facility] Date(s): 07/17/20 - 07/24/20 [facility] [address] [place] [address]- Attending Physician: Dennis Mendoza MD Referring Physician: Kilo Smith MD Allergies, [...] 2Admin Note: VIS-GIVEN 3Result Comment: [02/28/2017] [facility]: [id number] 4Location History: [facility] 5Admin Note: VIS 12/18/2010 6Admin Note: VIS given 01/02/10 7Admin Note: vis 03/03 8Result Comment: error 9Admin Note: hep A #1 10Admin Note: vis 01/01 11Admin Note: VIS 12Admin Note: vis-given Medications amLODIPine 5 mg oral tablet 5 mg, 1, tablet, By Mouth, Daily, # 90 tablet, Refills 0, Tot. Refills 0, Maintenance, 03/06/20 15:55:00 EDT, Route to Pharmacy Electronically, [facility], 168, cm, 12/06/19 13:53:00 EDT, Height [...] 07/18/20 14:07:00 EST, Route to Pharmacy Electronically, [facility] #[id number], 168, cm, 07/17/20 14:04:00 EST, Height Start Date: 07/18/20 Status: Ordered lamotrigine 25 mg oral tablet 25 mg, 1, tablet, By Mouth, 2 times a day, # 180 tablet, Refills 1, Tot. Refills 1, Maintenance, 08/21/20 16:55:00 EDT, Route to Pharmacy Electronically, [facility] #[id number], 168, cm, 04/18/20 10:07:00 EST, Height Start Date: 08/21/20 Stop Date: 02/17/21 Status: Ordered lamotrigine 25 mg oral tablet 25 mg, 1, tablet, By Mouth, 2 times a day, for 30 days, # 60 tablet, Refills 5, Tot. Refills 5, Hard Stop 08/21/20 16:55:00 EDT, 02/23/20 16:55:00 EDT, Route to Pharmacy Electronically, [facility], 168, cm, 12/06/19 13:53:00 EDT, Height Start Date: 02/23/20 Stop Date: 08/21/20 Status: Ordered lisinopril 20 mg oral tablet 40 mg, 2, tablet, By Mouth, Daily, new dose, # 180 tablet, Refills 1, Tot. Refills 1, Maintenance, 09/08/19 15:55:00 EDT, Route to Pharmacy Electronically, [facility], new dose, 168, cm, 08/16/19 15:58:00 EDT, Height Start Date: 06/13/17 Stop Date: 03/06/20 Status: Ordered metFORMIN 1000 mg oral tablet 1 tablet = 1,000 mg, By Mouth, 2 times a day, with meals, # 180 tablet, 1 Refills, Maintenance, 03/06/20 15:49:00 EDT, Tablet, [facility] 168, cm, 12/06/19 13:53:00 EDT, [...] Refills, Maintenance, 09/08/19 15:55:00 EDT, EC Capsule, [facility] 168, cm, 08/16/19 15:58:00 EDT, [...] 0 Refills, Maintenance, 07/04/20 8:01:00 EST, Tablet, [facility] #[id number], 07/12/20, 168, cm, 06/26/20 9:34:00 EST, Height [...] polyps(Confirmed) 18 Active Inguinal hernia left(Confirmed) 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 [place] 4, 22had surgery 2011 23sx pending 24had sx 25seeing ENT 26surgery 1991 27MRI 2006 28possible ITP 29monitor 30Tubular adenoma 2014 Vital Signs Most recent to oldest [Reference Range]: 1 Height 168 cm (07/17/20 2:04 PM) Weight 73.5 kg (07/17/20 2:04 PM) Pulse Rate [55-90 bpm] 84 bpm (07/17/20 2:04 PM) Body Mass Index [18.5-24.99] 26.04 *H* (07/17/20 2:04 PM) Blood Pressure [90-138/55-84 mm Hg] 168/ 88mm Hg *H* (07/17/20 2:04 PM) Temperature [96.8-100.4 DegF] 98.7 DegF (07/17/20 2:04 PM) Blood pressure sites Arm, left (07/17/20 2:04 PM) Temperature Route Temporal (07/17/20 2:04 PM) Weight Obtained Via Standing scale (07/17/20 2:04 PM) Social History Social History Type Response Smoking Status Former smoker; Tobac co use times per day: smoked < 1/2 PPD; Started at age: 18; Stopped at age: 65; entered on: 12/23/13 Sex
--- OUTSIDE RECORDS SUMMARY | 2022-12-09 11:32 | XMS_ITS | Continuity of Care Document ---
Author Name Unknown Organization [facility] [place] lt Address [address] [place] [address]- Care Team Providers Care Charge Loader Name Role Phone Luis RICHARD, Kilo Pendlteon Primary Care Physician Encounter [facility] Date(s): 12/05/20 - 01/04/21 [facility] Adult [address] [place] [address]- Allergies, Adverse Reactions, Alerts Substance Reaction Severity [...] VIS 2Admin Note: VIS-GIVEN 3Result Comment: [02/28/2017] [facility]: [id number] 4Location History: [facility] 5Admin Note: VIS 12/18/2010 [...] 2 Refills, Maintenance, 01/03/21 8:18:00 EDT, Tablet, [facility] #[id number], Partial fill upon patient request if the [...] 12/28/20 9:56:00 EDT, Route to Pharmacy Electronically, [facility] #[id number], Partial fill... Start Date: 12/28/20 Status: Ordered docusate sodium 100 mg oral capsule 100 mg, 1, capsule, By Mouth, 2 times a day, # 60 capsule, Refills 6, Tot. Refills 6, Maintenance, 01/03/21 8:19:00 EDT, Route to Pharmacy Electronically, [facility] #07697, Partial fill upon patient request if the prescription is for a sche... Start Date: 01/03/21 Status: Ordered ezetimibe 10 mg oral tablet 1 tablet = 10 mg, By Mouth, Daily, take with atorvastatin, # 30 tablet, 11 Refills, Maintenance, 12/03/20 16:45:00 EDT, Tablet, [facility] #[id number], Partial fill upon patient request if the [...] Maintenance, DX: STROKE I63.9 LIFETIME NEED fax: [phone], 12/05/20 16:06:00 EDT, Supply Start Date: 12/05/20 Status: Ordered Incruse Ellipta 62.5 mcg/inh inhalation powder 1 each, Inhalation, Every 24 hours, doses should be taken at least 24 hours apart repaces spitriva,# 30 each, 11 Refills, Maintenance, 12/04/20 9:56:00 EDT, Powder, [facility] #65021, Partial fill upon patient request if the [...] 10/30/20 8:19:00 EDT, Route to Pharmacy Electronically, [facility] #[id number], 168, cm, :43:00 EDT, Height, 72.7, kg, [...] 1 Refills, Maintenance, 12/27/20 13:44:00 EDT, Tablet, [facility] #[id number], 168, cm, 12/01/20 9:19:00 EDT, Height, 72.7, kg, 10/12/20 9:18:00 EDT, Dry Weight Start Date: 12/27/20 Stop Date: 06/25/21 Status: Ordered nitroglycerin 0.3 mg sublingual tablet 1 tablet = 0.3 mg, Sublingual, Every 5 minutes, PRN as needed for chest pain, not to exceed 3 doses/15 min--if pain persists, seek medical attention, # 100 tablet, 0 Refills, Maintenance, 12/04/20 10:05:00 EDT, Tablet, [facility] #[id number], Par... Start Date: 12/04/20 Status: Ordered omeprazole 20 mg oral enteric coated capsule 1 capsule = 20 mg, By Mouth, Daily, before breakfast, # 90 capsule, 1 Refills, Maintenance, 08/17/20 15:28:00 EDT, EC Capsule, [facility] #[id number], 168, cm, 07/17/20 14:04:00 EST, Height Start Date: 08/17/20 Stop Date: 02/13/21 Status: Ordered oxyCODONE 10 mg oral tablet 1 tablet = 10 mg, By Mouth, Every 4 hours, PRN as needed for pain, chronic back pain, # 168 tablet,0 Refills, Maintenance, 12/26/20 11:00:00 EDT, Tablet, [facility] #[id number], Partial fill upon patient request if the [...] to Pharmacy Electronically, [facility] #[id number], Partial fill upon patient request if the prescription is for a schedule II opi... Start Date: 01/03/21 Status: Ordered Tub transfer bench Tub transfer bench, See Instructions, # 1 each, Refills 0, Tot. 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 [place] 4, 22had surgery 2011 23sx pending 24had sx 25seeing ENT 26surgery 1991 27MRI 2006 28possible ITP 29monitor 30Tubular adenoma 2014 Social History Social History Type Response Smoking Status Former smoker; Tobac co use times per day: smoked < 1/2 PPD; Started at age: 18; Stopped at age: 65; entered on: 12/23/13 Sex
--- OUTSIDE RECORDS SUMMARY | 2022-12-09 11:32 | XMS_ITS | Continuity of Care Document ---
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(Discharge Diagnosis) - 05/17/19 Attending Physician: Kilo Smith MD Allergies, Adverse [...] adult vaccine 07/14/13 Given pneumococcal 23-valent vaccine 12/19/12 Given Zoster Vaccine Live 7 05/22/11 Given Hepatitis A Adult Vaccine 8, 9 08/21/10 Given Influenza Vaccine (oldterm) 10 02/09/09 Given Tet/Diphth/Acel, Pertussis (oldterm) 11 08/04/07 G iven Pneumococcal Vaccine (oldterm) 12 03/11/06 Given 1Admin Note: VIS 2Admin Note: VIS-GIVEN 3Result Comment: [02/28/2017] [facility]: [id number] [facility] 5Admin Note: VIS 12/18/2010 6Admin Note: VIS given 01/02/10 7Admin Note: vis 03/03 8Result Comment: error 9Admin Note: hep A #1 10Admin Note: vis 01/01 11Admin Note: VIS 12Admin Note: vis-given Medications amLODIPine 5 mg oral tablet 5 mg, 1, tablet, By Mouth, Daily, # 30 tablet, Refills 11, Tot. Refills 11, Maintenance, 07/22/18 10:15:47 EST, Route to Pharmacy Electronically, [id number], [facility] Start Date: 07/22/18 Status: Ordered Anoro Ellipta 62.5 mcg-25 mcg/inh [...] 1 each, 3 Refills, Maintenance, 05/07/16 9:37:51, [place], 1 sprays Nares, Both 2 times a [...] 03/23/19 10:06:18 EDT, Route to Pharmacy Electronically, [id number], [facility] Start Date: 03/23/19 Status: Ordered lamotrigine 25 mg oral tablet 25 mg, 1, tablet, By Mouth, 2 times a day, # 60 tablet, Refills 5, Tot. Refills 5, Maintenance, 05/17/19 16:10:00 EST, Route to Pharmacy Electronically, [facility], 168, cm, 05/17/19 16:06:00 EST, Height Start Date: 05/17/19 Stop Date: 11/13/19 Status: Ordered lisinopril 20 mg oral tablet 40 mg, 2, tablet, By Mouth, Daily, new dose, # 60 tablet, Refills 5, Tot. Refills 5, Maintenance, 03/23/19 10:06:21 EDT, Route to Pharmacy Electronically, [id number], [facility]., new dose Start Date: 06/13/17 Status: Ordered loratadine 10 mg oral tablet 10 mg, 1, tablet, By Mouth, Daily, for seasonal allergies, # 30 tablet, Refills 2, Tot. Refills 2, Maintenance, 10/17/16 11:37:04, Route to Pharmacy Electronically, [id number], [facility]. Start Date: 10/17/16 Status: Ordered metFORMIN [...] see pharamcy note, 06/13/17 11:20:27, Narcan Nasal [place]: 4 mg (contents of 1 nasal spray): Narcan Nasal [place]: 4 mg (contents of 1 nasal spray), [...] hours, # 168 tablet, 0 Refills, Maintenance, 05/04/19 11:08:00 EST, Tablet, 05/11/19, 168, cm, 03/24/19 10:49:35 EDT, Height Start Date: 05/04/19 Status: Ordered Ventolin HFA 108 mcg/inh inhalation [...] Hx of adenomatous colonic polyps(Confirmed) 18 Active alf current use of opi ate [...] week 19care ploan reviewed 20comm 2 21PHQ9;2. 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 Discharge Diagnosis 05/17/19 Vital Signs Most recent to oldest [Reference Range]: 1 Height 168 cm (05/17/19 4:06 PM) Weight 75.0 kg (05/17/19 4:06 PM) Oxygen Saturation [94-100 %] 97 % (05/17/19 4:06 PM) Pulse Rate [55-90 bpm] 90 bpm (05/17/19 4:06 PM) Body Mass Index [18.5-24.99] 26.57 *H* (05/17/19 4:06 PM) Blood Pressure [90-138/55-84 mm Hg] 118/ 60mm Hg (05/17/19 4:06 PM) Blood pressure sites Arm, left (05/17/19 4:06 PM) Social History Social History Type Response Smoking Status Former smoker; Tobac co use times per day: smoked < 1/2 PPD; Started at age: 18; Stopped at age: 65; entered on: 12/23/13 Sex
--- OUTSIDE RECORDS SUMMARY | 2022-12-09 11:32 | XMS_ITS | Continuity of Care Document ---
Author Name Unknown Organization 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 Refills 1, Maintenance, 09/08/19 15:55:00 EDT, Route to Pharmacy Electronically, [facility], 168, cm, 08/16/19 15:58:00 EDT, Height [...] 5 Refills, Maintenance, 10/06/19 15:53:00 EDT, Tablet, [facility], 168, cm, 08/16/19 15:58:00 EDT, Height Start Date: 10/06/19 Stop Date: 04/03/20 Status: Ordered Flonase 50 mcg/inh nasal spray 1 sprays, Nares, Both, 2 times a day, # 1 each, 3 Refills, Maintenance, 05/07/16 9:37:51, [place], 1 sprays Nares, Both 2 times a [...] 03/23/19 10:06:18 EDT, Route to Pharmacy Electronically, [id number], [facility] Start Date: 03/23/19 Status: Ordered lamotrigine 25 mg oral tablet 25 mg, 1, tablet, By Mouth, 2 times a day, # 60 tablet, Refills 5, Tot. Refills 5, Maintenance, 05/17/19 16:10:00 EST, Route to Pharmacy Electronically, [facility], 168, cm, 05/17/19 16:06:00 EST, Height Start Date: 05/17/19 Stop Date: 11/13/19 Status: Ordered lisinopril 20 mg oral tablet 40 mg, 2, tablet, By Mouth, Daily, new dose, # 180 tablet, Refills 1, Tot. Refills 1, Maintenance, 09/08/19 15:55:00 EDT, Route to Pharmacy Electronically, [facility], new dose, 168, cm, 08/16/19 15:58:00 EDT, Height Start Date: 06/13/17 Stop Date: 03/06/20 Status: Ordered loratadine 10 mg oral tablet 10 mg, 1, tablet, By Mouth, Daily, for seasonal allergies, # 30 tablet, Refills 2, Tot. Refills 2, Maintenance, 10/17/16 11:37:04, Route to Pharmacy Electronically, [id number], [facility] Start Date: 10/17/16 Status: Ordered metFORMIN 1000 mg oral tablet 1 tablet = 1,000 mg, By Mouth, 2 times a day, with meals, # 180 tablet, 1 Refills, Maintenance, 09/08/19 15:49:00 EDT, Tablet, [facility], 168, cm, 08/16/19 15:58:00 EDT, Height [...] see pharamcy note, 06/13/17 11:20:27, Narcan Nasal [place]: 4 mg (contents of 1 nasal spray): Narcan Nasal [place]: 4 mg (contents of 1 nasal spray), [...] Refills, Maintenance, 09/08/19 15:55:00 EDT, EC Capsule, [facility], 168, cm, 08/16/19 15:58:00 EDT, Height Start Date: 09/08/19 Stop Date: 03/06/20 Status: Ordered One Touch Ultra Test Strips See Instructions, # 1 box, Refills 11, Tot. 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 Discharge Diagnosis 12/05/19 Benign Essential Hypertension Discharge Diagnosis 12/06/19 Vital Signs Most recent to oldest [Reference Range]: 1 Height 168 cm (12/06/19 1:53 PM) Weight 75.2 kg (12/06/19 1:53 PM) Oxygen Saturation [94-100 %] 98 % (12/06/19 1:53 PM) Pulse Rate [55-90 bpm] 74 bpm (12/06/19 1:53 PM) Body Mass Index [18.5-24.99] 26.64 *H* (12/06/19 1:53 PM) Blood Pressure [90-138/55-84 mm Hg] 134/ 64mm Hg (12/06/19 1:53 PM) Respiratory Rate [16-30 br/min] 16 br/mi n (12/06/19 1:53 PM) Mode of Delivery (Oxygen) Room air (12/06/19 1:53 PM) Blood pressure sites Arm, left (12/06/19 1:53 PM) Weight Obtained Via Standing scale (12/06/19 1:53 PM) Social History Social History Type Response Smoking Status Former smoker; Tobac co use times per day: smoked < 1/2 PPD; Started at age: 18; Stopped at age: 65; entered on: 12/23/13 Sex
--- OUTSIDE RECORDS SUMMARY | 2022-12-09 11:32 | XMS_ITS | Continuity of Care Document ---
Author Name Unknown Organization [facility] Address [address] [place] [address]- Care Team Providers Care Manager Roofing Name Role Phone Kristin Leticia SIMS Primary Care Physician [facility] Date[facility]s): 05/02[facility]22 - 06/01/22 [facility] [address] [place] [address]- Attending Physician: Mitesh Lopez Admitting Physician: AdmtrMitesh Referring Physician: Admtr, Chon8 Allergies, Adverse Reactions, Alerts Substance Reaction Severity [...] inactivated 6 08/01/10 Gi radha SARS-CoV-2 mRNA ([id number]) vax 7 06/29/21 Given SARS-CoV-2 (COVID-19) mRNA [...] (oldterm) 15 03/11/06 Given 1Result Comment: [facility]-[id number] 2Result Comment: [facility]: [id number] 3Result Comment: [02/28/2017] HD [facility]: [id number] 4[facility] 5Admin Note: VIS 12/18/2010 6Admin Note: VIS given 01/02/10 7Result Comment: [facility]-[id number] 8Admin Note: VIS 9Admin Note: VIS-GIVEN 10Admin [...] 0 Refills, Maintenance, 07/17/21 12:08:00 EST, Tablet, [id number], Partial fill upon patient request if the [...] tablet, 1 Refills, Maintenance, 01/22/22 12:14:00 EDT, [facility] #[id number], 168, cm, 12/26/21 15:45:00 EDT, Height, 88.5, kg, 11/04/21 16:51:00 EDT, Dry Weight Start Date: 01/22/22 Status: Ordered baclofen 10 mg oral tablet 0.5, tablet, By Mouth, 3 times a day, # 45 tablet, Refills 0, Tot. Refills 0, 08/14/21 13:16:00 EDT, Route to Pharmacy Electronically, [facility] #[id number], 168, cm, 08/01/21 9:15:00 EST, Height, 72.7, kg, 10/12/20 9:18:00 EDT, Dry Weight Start Date: 08/14/21 Status: Ordered clopidogrel 75 mg oral tablet 75 mg, 1, tablet, By Mouth, Daily, Continue medication through 09/2021 unless otherwise instructed.,# 90 tablet, Refills 3, Tot. Refills 3, Maintenance, 12/28/20 9:56:00 EDT, Route to Pharmacy Electronically, [facility] #[id number], Partial fill... Start Date: 12/28/20 Status: Ordered Coreg 6.25 mg oral tablet 6.25 mg, 1, tablet, By Mouth, 2 times a day, # 60 tablet, Refills 0, Tot. Refills 0, Maintenance, 04/08/22 15:17:00 EST, Route to Pharmacy Electronically, [facility], Partial fill upon patient request if the prescription is for a schedul... Start Date: 04/08/22 Status: Ordered Farxiga 10 mg oral tablet 1 tablet = 10 mg, By Mouth, Daily, Increased strength, # 30 tablet, 0 Refills, Maintenance, 01/16/22 9:53:00 EDT, Tablet, [facility] #[id number], Increased strength, 168, cm, 12/26/21 15:45:00 EDT, [...] 05/02/22 13:11:00 EST, Route to Pharmacy Electronically, [facility] #[id number], Partial fill upon patient request if the prescription is for a schedule... Start Date: 05/02/22 Stop Date: 10/29/22 Status: Ordered lamotrigine 25 mg oral tablet 25 mg, 1, tablet, By Mouth, 2 times a day, # 180 tablet, Refills 1, Tot. Refills 1, Maintenance, 01/22/22 12:14:00 EDT, Route to Pharmacy Electronically, [facility] #[id number], 168, cm, 12/26/21 15:45:00 EDT, Height, 88.5, kg, 11/04/21 16:51:00... Start Date: 01/22/22 Status: Ordered lisinopril 5 mg oral tablet 5 mg, 1, tablet, By Mouth, Daily, # 90 tablet, Refills 3, Tot. Refills 3, Maintenance, 03/10/22 22:37:00 EDT, Route to Pharmacy Electronically, [facility] #[id number], Partial fill upon patient request if the prescription is for a schedule II opi... Start Date: 03/10/22 Status: Ordered nitroglycerin 0.3 mg sublingual tablet 1 tablet = 0.3 mg, Sublingual, Every 5 minutes, PRN as needed for chest pain, not to exceed 3 doses/15 min--if pain persists, seek medical attention, # 100 tablet, 0 Refills, Maintenance, 12/04/20 10:05:00 EDT, Tablet, [facility] #[id number], Par... Start Date: 12/04/20 Status: Ordered omeprazole 20 mg oral enteric coated capsule 1 capsule = 20 mg, By Mouth, Daily, in AM, # 90 capsule, 1 Refills, Maintenance, 04/09/22 11:29:00 EST, EC Capsule, [facility] #[id number], 168, cm, 04/09/22 11:04:00 EST, Height, 74, kg, 04/06/22 1:20:00 EST, Dry Weight Start Date: 04/09/22 Stop Date: 10/06/22 Status: Ordered oxyCODONE 10 mg oral tablet 1 tablet = 10 mg, By Mouth, Every 4 hours, PRN as needed for pain, chronic back pain, # 168 tablet,0 Refills, Maintenance, 05/29/22 20:21:00 EST, Tablet, [facility] #[id number], Partial fill upon patient request if the prescription is for a sche... 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 [place] 4, 22had surgery 2011 23sx pending 24had sx 25seeing ENT 26surgery 1991 27MRI 2006 28possible ITP 29monitor 30Tubular adenoma 2014 Social History Social History Type Response Smoking Status Former smoker; Tobac co use times per day: smoked < 1/2 PPD; Started at age: 18; Stopped at age: 65; entered on: 12/23/13 Sex Patient Care team information Care Team Personnel Name: Philomena Castillo Position: [facility] RN Supv Member Role: Primary Care Nurse Name: Leticia Foster NP Position: [facility] PCO Associate Professional Member Role: PCP Address: Address: [address] [place] [id number] Name: Namita Barajas RN Position: [facility] RN Member Role: Primary Care Nurse Name: Tasha Back RN Position: S RN Member Role: Primary Care Nurse Name: Jenny Bustillos RN Position: [facility] RN Member Role: Primary Care Nurse Name: Margarita Serrano RN Position: S RN Member Role: Primary Care Nurse Name: Devin Benites RN Position: S RN Member Role: Primary Care Nurse Name: Betsy Millan RN Position: [facility] RN Member Role: Primary Care Nurse Name: Peggy Jansen RN Position: [facility] RN Member Role: Primary Care Nurse Name: Cate Pabon RN Position: [facility] PCO RN Member Role: Primary Care Nurse Name: Janette Jones RN Position: S RN Member Role: Primary Care Nurse Name: Vianney Mcneill RN Position: [facility] RN Member Role: Primary Care Nurse Name: Cindy Evans LPN Position: S RN Member Role: Primary Care Nurse Care Team Related Persons Name: INGE MURRAY Address: [address] [place] [address] Name: NIK BARTON Address: [place] [address]
--- OUTSIDE RECORDS SUMMARY | 2022-12-09 11:32 | XMS_ITS | Continuity of Care Document ---
Author Name Unknown Organization [facility] Address [address] [place] [address]- Care Team Providers Care Ink Blender Name Role Phone Luis RICHARD, Kilo Pendleton Primary Care Physician Encounter [facility] Date(s): 08/01/21 - 08/31/21 [facility] [address] [place] [address]- Attending Physician: Mitesh Lopez Admitting Physician: Mitesh Lopez Referring Physician: Mitesh Lopez Allergies, Adverse Reactions, Alerts Substance Reaction Severity Status Duloxetine 1 rash Active 1GI Immunizations Given and Recorded Vaccine Date Status Refusal Reason SARS-CoV-2 mRNA (gvjcqvs-zope-wtlxt) vax 1 06/29/21 Given influenza virus vaccine, [...] Vaccine (oldterm) 14 03/11/06 Given 1Result Comment: [facility]-[id number] 2Result Comment: [facility]: [id number] 3Result Comment: [02/28/2017] HD [facility]: 66147-590-36 4[facility] History: [facility] 5Admin Note: VIS 12/18/2010 [...] 0 Refills, Maintenance, 07/17/21 12:08:00 EST, Tablet, [facility] #[id number], Partial fill upon patient request if the [...] tablet, 3 Refills, Maintenance, 02/05/21 8:58:00 EDT, [facility] #[id number], 168, cm, 01/30/21 11:10:00 EDT, Height, 72.7, kg, 10/12/20 9:18:00 EDT, Dry Weight Start Date: 02/05/21 Status: Ordered baclofen 10 mg oral tablet 0.5, tablet, By Mouth, 3 times a day, # 45 tablet, Refills 0, Tot. Refills 0, 08/14/21 13:16:00 EDT, Route to Pharmacy Electronically, [facility] #[id number], 168, cm, 08/01/21 9:15:00 EST, Height, 72.7, kg, 10/12/20 9:18:00 EDT, Dry Weight Start Date: 08/14/21 Status: Ordered clopidogrel 75 mg oral tablet 75 mg, 1, tablet, By Mouth, Daily, Continue medication through 09/2021 unless otherwise instructed.,# 90 tablet, Refills 3, Tot. Refills 3, Maintenance, 12/28/20 9:56:00 EDT, Route to Pharmacy Electronically, [facility] #[id number], Partial fill... Start Date: 12/28/20 Status: Ordered Coreg 3.125 mg oral tablet 3.125 mg, 1, tablet, By Mouth, 2 times a day, # 60 tablet, Refills 11, Tot. Refills 11, Maintenance, 08/01/21 9:34:00 EST, Route to Pharmacy Electronically, [facility] #[id number], Partial fill upon patient request if the prescription is for a sc... Start Date: 08/01/21 Stop Date: 07/27/22 Status: Ordered docusate sodium 100 mg oral capsule 100 mg, 1, capsule, By Mouth, 2 times a day, # 60 capsule, Refills 6, Tot. Refills 6, Maintenance, 01/03/21 8:19:00 EDT, Route to Pharmacy Electronically, [facility] #[id number], Partial fill upon patient request if the prescription is for a sche... Start Date: 01/03/21 Status: Ordered ezetimibe 10 mg oral tablet 1 tablet = 10 mg, By Mouth, Daily, take with atorvastatin, # 30 tablet, 11 Refills, Maintenance, 12/03/20 16:45:00 EDT, Tablet, [facility] #[id number], Partial fill upon patient request if the prescription is for a schedule II opioid drug., 168,... Start Date: 12/03/20 Status: Ordered Farxiga 5 mg oral tablet 1 tablet = 5 mg, By Mouth, Daily, # 30 tablet, 6 Refills, Maintenance, 07/06/21 13:16:00 EST, Tablet, [facility] #[id number], Partial fill upon patient request if the [...] 11 Refills, Maintenance, 12/04/20 9:56:00 EDT, Powder, [facility] #[id number], Partial fill upon patient request if the prescription i... Start Date: 12/04/20 Status: Ordered isosorbide mononitrate 30 mg oral tablet, extended release 1 tablet, By Mouth, Daily in AM, # 30 tablet, 0 Refills, [facility] #[id number], 168, cm, 01/10/21 10:40:00 EDT, Height, 72.7, kg, 10/12/20 9:18:00 EDT, Dry Weight Start Date: 01/28/21 Status: Ordered lamotrigine 25 mg oral tablet 25 mg, 1, tablet, By Mouth, 2 times a day, # 180 tablet, Refills 1, Tot. Refills 1, Maintenance, 07/11/21 13:45:00 EST, Route to Pharmacy Electronically, [facility] #[id number], 168, cm, 07/06/21 13:13:00 EST, Height, 72.7, [...] 02/21/21 16:10:00 EDT, Route to Pharmacy Electronically, [facility] #[id number], Partial fill upon patient request if the prescription is for a schedule II opi... Start Date: 02/21/21 Status: Ordered nitroglycerin 0.3 mg sublingual tablet 1 tablet = 0.3 mg, Sublingual, Every 5 minutes, PRN as needed for chest pain, not to exceed 3 doses/15 min--if pain persists, seek medical attention, # 100 tablet, 0 Refills, Maintenance, 12/04/20 10:05:00 EDT, Tablet, [facility] #[id number], Par... Start Date: 12/04/20 Status: Ordered omeprazole 20 mg oral enteric coated capsule 1 capsule = 20 mg, By Mouth, Daily, before breakfast, # 90 capsule, 0 Refills, Maintenance, 07/11/21 9:03:00 EST, EC Capsule, [facility] #[id number], 168, cm, 07/06/21 13:13:00 EST, Height, 72.7, kg, 10/12/20 9:18:00 EDT, Dry Weight Start Date: 07/11/21 Stop Date: 10/09/21 Status: Ordered oxyCODONE 10 mg oral tablet 1 tablet = 10 mg, By Mouth, Every 4 hours, PRN as needed for pain, chronic back pain, # 168 tablet,0 Refills, Maintenance, 08/14/21 10:56:00 EDT, Tablet, [facility] #[id number], Partial fill upon patient request if the [...] ef 35%/Echo Sept 2020 40-45%(Confirmed) 10/20/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 [place] 4, 22had surgery 2011 23sx pending 24had sx 25seeing ENT 26surgery 1991 27MRI 2007 28possible ITP 29monitor 30Tubular adenoma 2015 Social History Social History Type Response Smoking Status Former smoker; Tobac co use times per day: smoked < 1/2 PPD; Started at age: 18; Stopped at age: 65; entered on: 12/23/13 Sex
--- OUTSIDE RECORDS SUMMARY | 2022-12-09 11:32 | XMS_ITS | Continuity of Care Document ---
Author Name Unknown Organization [facility] lt Address [address] [place] [address]- Care Team Providers Care Guide Excursion Name Role Phone Luis RICHARD, Kilo Pendleton Primary Care Physician [phone] Encounter [facility] Date(s): 07/18/20 - 08/17/20 [facility] Adult [address] [place] [address]- Allergies, Adverse Reactions, Alerts Substance Reaction Severity [...] 2Admin Note: VIS-GIVEN 3Result Comment: [02/28/2017] [facility]: [id number] 4[facility] 5Admin Note: VIS 12/18/2010 6Admin Note: VIS given 01/02/10 7Admin Note: vis 03/03 8Result Comment: error 9Admin Note: hep A #1 10Admin Note: vis 01/01 11Admin Note: VIS 12Admin Note: vis-given Medications amLODIPine 5 mg oral tablet 5 mg, 1, tablet, By Mouth, Daily, # 90 tablet, Refills 0, Tot. Refills 0, Maintenance, 08/17/20 15:28:00 EDT, Route to Pharmacy Electronically, [facility] #[id number], 168, cm, 07/17/20 14:04:00EST, Height Start Date: [...] 07/18/20 14:07:00 EST, Route to Pharmacy Electronically, [id number], 168, cm, 07/17/20 14:04:00 EST, Height Start Date: 07/18/20 Status: Ordered lamotrigine 25 mg oral tablet 25 mg, 1, tablet, By Mouth, 2 times a day, # 180 tablet, Refills 1, Tot. Refills 1, Maintenance, 08/21/20 16:55:00 EDT, Route to Pharmacy Electronically, [facility] #[id number], 168, cm, 04/18/20 10:07:00 EST, Height Start Date: 08/21/20 Stop Date: 02/17/21 Status: Ordered lamotrigine 25 mg oral tablet 25 mg, 1, tablet, By Mouth, 2 times a day, for 30 days, # 60 tablet, Refills 5, Tot. Refills 5, Hard Stop 08/21/20 16:55:00 EDT, 02/23/20 16:55:00 EDT, Route to Pharmacy Electronically, [facility], 168, cm, 12/06/19 13:53:00 EDT, Height Start Date: 02/23/20 Stop Date: 08/21/20 Status: Ordered lisinopril 20 mg oral tablet 40 mg, 2, tablet, By Mouth, Daily, new dose, # 180 tablet, Refills 1, Tot. Refills 1, Maintenance, 09/08/19 15:55:00 EDT, Route to Pharmacy Electronically, [facility], new dose, 168, cm, 08/16/19 15:58:00 EDT, Height Start Date: 06/13/17 Stop Date: 03/06/20 Status: Ordered metFORMIN 1000 mg oral tablet 1 tablet = 1,000 mg, By Mouth, 2 times a day, with meals, # 180 tablet, 1 Refills, Maintenance, 03/06/20 15:49:00 EDT, Tablet, [facility], 168, cm, 12/06/19 13:53:00 EDT, [...] Refills, Maintenance, 08/17/20 15:28:00 EDT, EC Capsule, [facility] #[id number], 168, cm, 07/17/20 14:04:00 EST, Height Start [...] 0 Refills, Maintenance, 08/01/20 7:38:00 EST, Tablet, [facility] #[id number], 08/09/20, 168, cm, 07/17/20 14:04:00 EST, Height [...] polyps(Confirmed) 18 Active Inguinal hernia left(Confirmed) Active group home current use of opi ate analgesic(Confirmed) [...] week 19care ploan reviewed 20comm 2 21PHQ9;2. [place] 4, 22had surgery 2011 23sx pending 24had sx 25seeing ENT 26surgery 1991 27MRI 2006 28possible ITP 29monitor 30Tubular adenoma 2014 Social History Social History Type Response Smoking Status Former smoker; Tobac co use times per day: smoked < 1/2 PPD; Started at age: 18; Stopped at age: 65; entered on: 12/23/13 Sex
--- OUTSIDE RECORDS SUMMARY | 2022-12-09 11:32 | XMS_ITS | Continuity of Care Document ---
Author Name Unknown Organization [facility] Address [address] [place] [address]- Care Team Providers Care Head Filter Tank Tender Helper Name Role Phone Kilo Smith MD Primary Care Physician Encounter [facility] Date(s): 09/26/20 - 11/29/20 [facility] Adult [address] [place] [address]- Attending Physician: Kilo Smith MD Allergies, Adverse [...] 2Admin Note: VIS-GIVEN 3Result Comment: [02/28/2017] [facility]: [id number] 4[facility] 5Admin Note: VIS 12/18/2010 [...] 10/30/20 8:19:00 EDT, Route to Pharmacy Electronically, [facility] #[id number], 168, cm, :43:00 EDT, Height, 72.7, kg, [...] Refills, Maintenance, 03/06/20 15:49:00 EDT, Tablet, [facility], 168, cm, 12/06/19 13:53:00 EDT, Height Start Date: 03/06/20 Stop Date: 09/02/20 Status: Ordered omeprazole 20 mg oral enteric coated capsule 1 capsule = 20 mg, By Mouth, Daily, before breakfast, # 90 capsule, 1 Refills, Maintenance, 08/17/20 15:28:00 EDT, EC Capsule, [facility] #[id number], 168, cm, 07/17/20 14:04:00 EST, Height Start [...] cath September 2020 ef 35%(Confirmed) 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 [place] 4, 22had surgery 2011 23sx pending 24had sx 25seeing ENT 26surgery 1991 27MRI 2006 28possible ITP 29monitor 30Tubular adenoma 2014 Social History Social History Type Response Smoking Status Former smoker; Tobac co use times per day: smoked < 1/2 PPD; Started at age: 18; Stopped at age: 65; entered on: 12/23/13 Sex
--- OUTSIDE RECORDS SUMMARY | 2022-12-09 11:33 | XMS_ITS | Continuity of Care Document ---
Author Name Unknown Organization [facility] lt Address [address] [place] [address]- Care Team Providers Care Medical Office Assistant Name Role Phone Luis RICHARD, Kilo Pendleton Primary Care Physician [phone] Encounter [facility] Date(s): 11/30/19 - 12/30/19 [facility] Adult [address] [place] [address]- [facility] Allergies, Adverse Reactions, Alerts Substance Reaction Severity [...] Note: VIS-GIVEN 3Result Comment: [02/28/2017] [facility]: [id number] 4[facility] History[facility] 5Admin Note: VIS 12/18/2010 6Admin Note: VIS given 01/02/10 7Admin Note: vis 03/03 8Result Comment: error 9Admin Note: hep A #1 10Admin Note: vis 01/01 11Admin Note: VIS 12Admin Note: vis-given Medications amLODIPine 5 mg oral tablet 5 mg, 1, tablet, By Mouth, Daily, # 90 tablet, Refills 1, Tot. Refills 1, Maintenance, 09/08/19 15:55:00 EDT, Route to Pharmacy Electronically, [facility], 168, cm, 08/16/19 15:58:00 EDT, Height Start [...] 5 Refills, Maintenance, 10/06/19 15:53:00 EDT, Tablet, [facility], 168, cm, 08/16/19 15:58:00 EDT, Height Start Date: 10/06/19 Stop Date: 04/03/20 Status: Ordered Flonase 50 mcg/inh nasal spray 1 sprays, Nares, Both, 2 times a day, # 1 each, 3 Refills, Maintenance, 05/07/16 9:37:51, [place], 1 sprays Nares, Both 2 times a [...] 03/23/19 10:06:18 EDT, Route to Pharmacy Electronically, [id number], [facility] Start Date: 03/23/19 Status: Ordered lamotrigine 25 mg oral tablet 25 mg, 1, tablet, By Mouth, 2 times a day, # 60 tablet, Refills 5, Tot. Refills 5, Maintenance, 05/17/19 16:10:00 EST, Route to Pharmacy Electronically, [facility], 168, cm, 05/17/19 16:06:00 EST, Height Start Date: 05/17/19 Stop Date: 11/13/19 Status: Ordered lisinopril 20 mg oral tablet 40 mg, 2, tablet, By Mouth, Daily, new dose, # 180 tablet, Refills 1, Tot. Refills 1, Maintenance, 09/08/19 15:55:00 EDT, Route to Pharmacy Electronically, [facility], new dose, 168, cm, 08/16/19 15:58:00 EDT, Height Start Date: 06/13/17 Stop Date: 03/06/20 Status: Ordered loratadine 10 mg oral tablet 10 mg, 1, tablet, By Mouth, Daily, for seasonal allergies, # 30 tablet, Refills 2, Tot. Refills 2, Maintenance, 10/17/16 11:37:04, Route to Pharmacy Electronically, [id number], [facility] Start Date: 10/17/16 Status: Ordered metFORMIN 1000 mg oral tablet 1 tablet = 1,000 mg, By Mouth, 2 times a day, with meals, # 180 tablet, 1 Refills, Maintenance, 09/08/19 15:49:00 EDT, Tablet, [facility], 168, cm, 08/16/19 15:58:00 EDT, Height Start [...] see pharamcy note, 06/13/17 11:20:27, Narcan Nasal [place]: 4 mg (contents of 1 nasal spray): Narcan Nasal [place]: 4 mg (contents of 1 nasal spray), [...] Refills, Maintenance, 09/08/19 15:55:00 EDT, EC Capsule, [facility]., 168, cm, 08/16/19 15:58:00 EDT, Height [...] 0 Refills, Maintenance, 12/14/19 12:29:00 EDT, Tablet, [facility] 12/22/19, 168, cm, 12/06/19 13:53:00 EDT, [...] Hx of adenomatous colonic polyps(Confirmed) 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 [place] 4, 22had surgery 2011 23sx pending 24had sx 25seeing ENT 26surgery 1991 27MRI 2006 28possible ITP 29monitor 30Tubular adenoma 2014 Social History Social History Type Response Smoking Status Former smoker; Tobac co use times per day: smoked < 1/2 PPD; Started at age: 18; Stopped at age: 65; entered on: 12/23/13 Sex
--- OUTSIDE RECORDS SUMMARY | 2022-12-09 11:33 | XMS_ITS | Continuity of Care Document ---
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 Name Role Phone Kristin LEVI, Leticia Hope Primary Care Physician [place] [facility] [place] 11/09/22 - 11/10/[address] [address]- Encounter Diagnosis Syncope(Final) - 11/09/22 Discharge Disposition: A-D/C Home Attending Physician: Katya Lawson MD Admitting Physician: Javier Ferguson MD Referring Physician: Not on Staff, Referring MD Allergies, Adverse Reactions, Alerts Substance Reaction Severity Status Duloxetine 1 rash Active 1GI Immunizations Given and Recorded Vaccine Date Status Refusal Reason pneumococcal 20-valent conjugate vaccine 08/27/22 Recorded [id number] 12y+ bivalent booster vax 08/27/22 Recorded influenza [...] inactivated 6 08/01/10 Gi radha SARS-CoV-2 mRNA ([id number]) vax 7 06/29/21 Given SARS-CoV-2 (COVID-19) mRNA [...] (oldterm) 15 03/11/06 Given 1Result Comment: [facility]-[id number] 2Result Comment: [facility]: [id number] 3Result Comment: [02/28/2017] HD [facility]: [id number] [facility] 5Admin Note: VIS 12/18/2010 6Admin Note: VIS given 01/02/10 7Result Comment: [facility]-[id number] 8Admin Note: VIS 9Admin Note: VIS-GIVEN 10Admin Note: vis 03/03 11Result Comment: error 12Admin Note: hep A #1 13Admin Note: vis 01/01 14Admin Note: VIS 15Admin Note: vis-given Medications albuterol 90 mcg/inh inhalation powder 2 puffs = 180 mcg, Inhalation, Every 4 hours, PRN as needed, # 1 each, 0 Refills, Maintenance, 10/07/22 13:35:00 EDT, Powder, [facility] #[id number], 2 puffs Inhalation Every 4 hours,PRN:as needed, 167.6, cm, 10/07/22 13:14:00 EDT, Height, 74, kg... Start Date: 10/07/22 Status: Ordered amLODIPine 5 mg oral tablet 1 tablet = 5 mg, By Mouth, Daily, # 90 tablet, 1 Refills, Maintenance, 10/07/22 21:43:00 EDT, Tablet, [facility] #[id number], 167.6, cm, 10/07/22 13:14:00 EDT, Height, 74, [...] tablet, 1 Refills, Maintenance, 10/07/22 21:43:00 EDT, [facility] #[id number], 167.6, cm, 10/07/22 13:14:00 EDT, Height, 74, kg, 04/06/22 1:20:00 EST, Dry Weight Start Date: 10/07/22 Status: Ordered Coreg 6.25 mg oral tablet 6.25 mg, 1, tablet, By Mouth, 2 times a day, # 60 tablet, Refills 0, Tot. Refills 0, Maintenance, 10/07/22 21:43:00 EDT, Route to Pharmacy Electronically, [facility] #[id number], 167.6, cm, 10/07/22 13:14:00 EDT, Height, 74, kg, 04/06/22 1:20:00... Start Date: 10/07/22 Status: Ordered Coreg 6.25 mg oral tablet 6.25 mg, Tablet, By Mouth, 11/10/22 9:00:00 EDT Start Date: 11/10/22 Stop Date: 11/10/22 Status: Completed ezetimibe 10 mg oral tablet TAKE 1 TABLET BY MOUTH DAILY TAKE WITH ATORVASTATIN Start Date: 10/07/22 Status: Ordered Farxiga 10 mg oral tablet 1 tablet = 10 mg, By Mouth, Daily, Increased strength, # 30 tablet, 0 Refills, Maintenance, 01/16/22 9:53:00 EDT, Tablet, [facility] #[id number], Increased strength, 168, cm, 12/26/21 15:45:00 EDT, [...] 05/02/22 13:11:00 EST, Route to Pharmacy Electronically, [facility] #[id number], Partial fill upon patient request if the prescription is for a schedule... Start Date: 05/02/22 Stop Date: 10/29/22 Status: Ordered lisinopril 5 mg oral tablet 5 mg, 1, tablet, By Mouth, Daily, # 90 tablet, Refills 3, Tot. Refills 3, Maintenance, 03/10/22 22:37:00 EDT, Route to Pharmacy Electronically, [facility] #[id number], Partial fill upon patient request if the prescription is for a schedule II opi... Start Date: 03/10/22 Status: Ordered lisinopril 5 mg oral tablet 5 mg, Tablet, By Mouth, 11/10/22 9:00:00 EDT Start Date: 11/10/22 Stop Date: 11/10/22 Status: Completed metFORMIN 500 mg oral tablet See Instructions, 1 tablet by mouth daily x 1 week then increase to 1 tablet 2 times a day, # 180 tablet, 0 Refills, Acute 01/19/23 12:00:00 EDT, 10/07/22 21:12:00 EDT, Tablet, [facility] #[id number], Partial fill upon patient request if the pres... Start Date: 10/07/22 Stop Date: 01/19/23 Status: Ordered nitroglycerin 0.3 mg sublingual tablet 1 tablet = 0.3 mg, Sublingual, Every 5 minutes, PRN as needed for chest pain, not to exceed 3 doses/15 min--if pain persists, seek medical attention, # 100 tablet, 0 Refills, Maintenance, 12/04/20 10:05:00 EDT, Tablet, [facility] #[id number], Par... Start Date: 12/04/20 Status: Ordered oxyCODONE 10 mg oral tablet 1 tablet = 10 mg, By Mouth, Every 4 hours, PRN as needed for pain, # 168 tablet, 0 Refills, Maintenance, 11/06/22 6:56:00 EDT, Tablet, [facility] #[id number], Partial fill upon patient request if the prescription is for a schedule II opioid drug.... 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 3no showurology 4bx dec 2012 5fev1 89% 6colonoscopy 2014,mild 7refer teaching 8neg bx 9BIOPSY PLANNED 10DR anish addressing 11had viagra past 12care ploan reviewed 13comm 2 14PHQ9;2. Adrian 4, 15surgery 1991 16MRI 2006 17possible ITP 18monitor 19Tubular adenoma 2015 Results Radiology Reports * Exam Date Time Procedure Performing Provider Status 11/09/22 5:[address] Angio Abdomen Sadie May; Auth (Verified) Notes: (CT Angio Abdomen) Reason For Exam: Renal artery dissection suspected;Other: RESULT: CT Angio Abdomen PROCEDURE: CT Angio Chest, CT Angio Abdomen CLINICAL INDICATION: Chest pain. Concern of acute aortic disease.: Syncope. Nausea. History of triple coronary artery bypass surgery 10/30/2020. TECHNIQUE: During uneventful administration intravenous contrast, thin section axial images were obtained of the chest and abdomen in arterial phase. Multiplanar reformats were computed. 100 cc of Omnipaque 300 was administered intravenously. 3D and MIP reconstructions were performed. Weight-based protocol using automatic tube modulation was used to optimize exposure parameters. RADIATION DOSE PARAMETERS: CTDIvol Body: 9.02 mGy, DLP Body: 383 mGy*cm. COMPARISON: 04/05/2012. FINDINGS: CTA: Pulmonary arteries: No pulmonary embolism down to the segmental level.. Thoracic aorta: Evidence of previous coronary bypass surgery. No thoracic aortic aneurysm or dissection.. Abdominal aorta: Ectasia with the infrarenal aorta measuring 28 mm. Moderate atherosclerosis.. Celiac axis: Stenosis less than 50%. Superior mesenteric artery: Stenosis less than 50%.. Inferior mesenteric artery: There is an 8 mm long stenosis at the origin. Stenosis is greater than 50%.. Renal arteries: Single renal artery bilaterally with stenosis less than 25% bilaterally.. Visualized Iliac arteries: No abnormality on the right. On the left the common iliac arteries mildly enlarged 18 mm. There is a short segment of dissection, no more than 3 cm, limited to the left common iliac artery.. OTHER FINDINGS: TRACHEA AND MAINSTEM BRONCHI: Patent without evidence of tracheal or endobronchial lesion. LUNGS AND PLEURA: Right Chest: The right lung is clear. There is no right pleural effusion. Left Chest: The left lung is clear. There is no left pleural effusion. MEDIASTINUM AND MO: The heart is of normal size. No pericardial effusion.. There is a 9 mm precarinal node image 39 series 604. Unchanged. There is a 9 mm subcarinal node unchanged.. There is no esophageal abnormality. BONES OF THE CHEST: There is no thoracic spine compression fracture. No fracture of the ribs.. DIAPHRAGM: Unremarkable. LIVER: No significant focal abnormality. GALLBLADDER: Normal size. No calcified stones. BILE DUCTS: No biliary dilatation. SPLEEN: Normal size. No focal abnormality. PANCREAS: Normal. ADRENAL GLANDS: Normal. KIDNEYS AND URETERS: Right Kidney: Normal. Left Kidney: Normal. STOMACH, SMALL BOWEL AND LARGE BOWEL: Stomach: Normal. Small and Large Bowel: There is a 6.5 cm diverticulum of the third part of duodenum. The visualized jejunum and ileum are normal. The visualized large bowel is normal. PERITONEUM, RETROPERITONEUM, OMENTUM AND MESENTERY: There is no free air. . There is no ascites. LYMPH NODES: No enlarged lymph nodes ABDOMINAL WALL: No abdominal wall hernia BONES OF THE ABDOMEN : There is no compression fracture. There is no spondylolysis or spondylolisthesis. IMPRESSION: CTA 1. No pulmonary embolism. 2. No thoracic aortic aneurysm or dissection. 3. No abdominal aortic aneurysm or dissection. 4. Short segment of dissection involving the mildly enlarged left common iliac artery. The appearance is unchanged since 04/05/2022.. CHEST 1. No pulmonary or pleural abnormality.. ABDOMEN 1. No acute soft tissue abnormality.. 2. Again noted is a large diverticulum of the third part of the duodenum. 3. No bony abnormality. WSN: [id number] Ordering Physician: Shari Lopez Dictated By: Sandip Zacarias MD Dictated Date/Time: 11/09/22 5:51 pm Reviewed By: Sandip Zacarias MD Signed By: Sandip Zacarias MD Signed Date/Time: 11/09/22 5:51 pm Transcribed By: LUCAS Transcribed Date/Time: 11/09/22 5:28 pm * Exam Date Time Procedure Performing Provider Status 11/09/22 5:[address] Angio Chest Sadie May; Auth ( Verified) Notes: (CT Angio Chest) Reason For Exam: Aortic disease, nontraumatic;Other: RESULT: CT Angio Chest PROCEDURE: CT Angio Chest, CT Angio Abdomen CLINICAL INDICATION: Chest pain. Concern of acute aortic disease.: Syncope. Nausea. History of triple coronary artery bypass surgery 10/30/2020. TECHNIQUE: During uneventful administration intravenous contrast, thin section axial images were obtained of the chest and abdomen in arterial phase. Multiplanar reformats were computed. 100 cc of Omnipaque 300 was administered intravenously. 3D and MIP reconstructions were performed. Weight-based protocol using automatic tube modulation was used to optimize exposure parameters. RADIATION DOSE PARAMETERS: CTDIvol Body: 9.02 mGy, DLP Body: 383 mGy*cm. COMPARISON: 04/05/2012. FINDINGS: CTA: Pulmonary arteries: No pulmonary embolism down to the segmental level.. Thoracic aorta: Evidence of previous coronary bypass surgery. No thoracic aortic aneurysm or dissection.. Abdominal aorta: Ectasia with the infrarenal aorta measuring 28 mm. Moderate atherosclerosis.. Celiac axis: Stenosis less than 50%. Superior mesenteric artery: Stenosis less than 50%.. Inferior mesenteric artery: There is an 8 mm long stenosis at the origin. Stenosis is greater than 50%.. Renal arteries: Single renal artery bilaterally with stenosis less than 25% bilaterally.. Visualized Iliac arteries: No abnormality on the right. On the left the common iliac arteries mildly enlarged 18 mm. There is a short segment of dissection, no more than 3 cm, limited to the left common iliac artery.. OTHER FINDINGS: TRACHEA AND MAINSTEM BRONCHI: Patent without evidence of tracheal or endobronchial lesion. LUNGS AND PLEURA: Right Chest: The right lung is clear. There is no right pleural effusion. Left Chest: The left lung is clear. There is no left pleural effusion. MEDIASTINUM AND MO: The heart is of normal size. No pericardial effusion.. There is a 9 mm precarinal node image 39 series 604. Unchanged. There is a 9 mm subcarinal node unchanged.. There is no esophageal abnormality. BONES OF THE CHEST: There is no thoracic spine compression fracture. No fracture of the ribs.. DIAPHRAGM: Unremarkable. LIVER: No significant focal abnormality. GALLBLADDER: Normal size. No calcified stones. BILE DUCTS: No biliary dilatation. SPLEEN: Normal size. No focal abnormality. PANCREAS: Normal. ADRENAL GLANDS: Normal. KIDNEYS AND URETERS: Right Kidney: Normal. Left Kidney: Normal. STOMACH, SMALL BOWEL AND LARGE BOWEL: Stomach: Normal. Small and Large Bowel: There is a 6.5 cm diverticulum of the third part of duodenum. The visualized jejunum and ileum are normal. The visualized large bowel is normal. PERITONEUM, RETROPERITONEUM, OMENTUM AND MESENTERY: There is no free air. . There is no ascites. LYMPH NODES: No enlarged lymph nodes ABDOMINAL WALL: No abdominal wall hernia BONES OF THE ABDOMEN : There is no compression fracture. There is no spondylolysis or spondylolisthesis. IMPRESSION: CTA 1. No pulmonary embolism. 2. No thoracic aortic aneurysm or dissection. 3. No abdominal aortic aneurysm or dissection. 4. Short segment of dissection involving the mildly enlarged left common iliac artery. The appearance is unchanged since 04/05/2022.. CHEST 1. No pulmonary or pleural abnormality.. ABDOMEN 1. No acute soft tissue abnormality.. 2. Again noted is a large diverticulum of the third part of the duodenum. 3. No bony abnormality. WSN: [id number] Ordering Physician: Shari Lopez Dictated By: Sandip Zacarias MD Dictated Date/Time: 11/09/22 5:51 pm Reviewed By: Sandip Zacarias MD Signed By: Sandip Zacarias MD Signed Date/Time: 11/09/22 5:51 pm Transcribed By: LUCAS Transcribed Date/Time: 11/09/22 5:28 pm * Exam Date Time Procedure Performing Provider Status 11/09/22 4:42 PM Chest 2 Views Frontal and Lat Harini Patricio; Auth (Verified) Notes: (Chest 2 Views Frontal and Lat) Reason For Exam: Chest Pain;Other: RESULT: Chest 2 Views Frontal and Lat Chest 2 Views Frontal and Lat Hx of Present Illness: Pt c o left anterior chest pain and some SOB. States chest pain has been ongoing for 2-3 days. Pt states he remembers syncopal episode.; Reason: Other:; Chest Pain; Clinical Question(s): CHF COMPARISON: 04/05/2022 CT chest. FINDINGS: LINES AND TUBES: EKG leads project over the chest. LUNGS AND PLEURA: Clear lungs. Normal pulmonary vascularity. No pleural effusion. No pneumothorax. HEART, MEDIASTINUM AND MO: Heart is normal in size. Normal mediastinal and hilar contour. The spinal clips noted. BONES AND SOFT TISSUES: No acute abnormality. Multiple sternal wires. There is multilevel degenerative endplate spurring. IMPRESSION: No acute abnormality. WSN: [id number] Ordering Physician: Shari Lopez Dictated By: Gudelia Moran MD Dictated Date/Time: 11/09/22 5:01 pm Reviewed By: Gudelia Moran MD Signed By: Gudelia Moran MD Signed Date/Time: 11/09/22 5:01 pm Transcribed By: LUCAS Transcribed Date/Time: 11/09/22 5:00 pm Vital Signs Most recent to oldest [Reference Range]: 1 2 3 Height 168 cm (11/10/22 3:59 PM) 168 cm (11/10/22 3:05 PM) 168 cm (11/10/22 11:41 AM) Weight 75.2 kg (11/09/22 10:01 PM) 75.2 kg (11/09/22 10:00 PM) 71 kg (11/09/22 3:16 PM) Oxygen Saturation [94-100 %] 99 % (11/10/22 3:05 PM) 99 % (11/10/22 11:41 AM) 99 % (11/10/22 8:42 AM) Pulse Rate [55-90 bpm] 61 bpm (11/10/22 3:05 PM) 56 bpm (11/10/22 11:41 AM) 65 bpm (11/10/22 8:55 AM) Body Mass Index [18.5-24.99 kg/m2] 26.64 kg/m2 *H* (11/09/22 10:00 PM) Blood Pressure [90-138/55-84 mm Hg] 115/58mm Hg (11/10/22 3:05 PM) 111/56mm Hg (11/10/22 11:41 AM) 130/67mm Hg (11/10/22 9:00 AM) Respiratory Rate [16-30 br/min] 18 br/min (11/10/22 3:05 PM) 18 br/min (11/10/22 11:41 AM) 18 br/min (11/10/22 9:00 AM) Temperature [96.8-100.4 DegF] 97.8 DegF (11/10/22 3:05 PM) 98.7 DegF (11/10/22 11:41 AM) 97.9 DegF (11/10/22 8:42 AM) Mode of Delivery (Oxygen) Room air (11/10/22 3:05 PM) Room air (11/10/22 11:41 AM) Room air (11/10/22 8:42 AM) Blood pressure sites Arm, left (11/10/22 3:05 PM) Arm, left (11/10/22 11:41 AM) Arm, left (11/10/22 8:42 AM) Temperature Route Oral (11/10/22 3:05 PM) Oral (11/10/22 11:41 AM) Oral (11/10/22 8:42 AM) Dry Weight 75.2 kg (11/09/22 10:00 PM) 71 kg (11/09/22 3:16 PM) Weight Obtained Via Bed scale (11/09/22 10:00 PM) Social History Social History Type Response Smoking Status Former smoker; Tobac co use times per day: smoked < 1/2 PPD; Started at age: 18; Stopped at age: 65; entered on: 12/23/13 Sex History and physical note * Omar Nj MD: PERFORM Event Display: History and Physical Hospital Authored Date: [id number] Patient: ??NOFAL, OSCAR ? Age:??77 Years?Sex:??Male?:??1945?? Addendum to ??Jose Morse's??note: Patient personally seen and examined after midnight.?? Agree with history and physical examination, assessment and plan as outlined above by ?? Jose Morse 87-year-old male with past medical history significant for CAD status post CABG, heart failure withreduced ejection fraction 45-50%, hypertension, hyperlipidemia, CKD, diabetes mellitus, CVA of right putamen??, COPD He has chronic low back pain. ?? On the day of admission,??he was having severe back pain which seemed to have triggered??a witnessed syncopal episode. ??EMS was activated and noted that he was hypotensive. ER course: Vital signs: Normal Exam: Moist mucous membranes, normal cardiac/pulmonary/abdominal exam On my evaluation, he has left paraspinal tenderness with + left straight leg testing?? Work-up:?? EKG: Sinus rhythm with 1st degree A-V block Anteroseptal infarct (cited on or before 13-OCT-2020) Abnormal ECG When compared with ECG of 05-APR-2022 20:50, Questionable change in initial forces of Anterior leads CBC: Mild leukocytosis, mild thrombocytopenia Chemistry: Mild hyperglycemia proBNP: 702 High-sensitivity troponin: 20???18 COVID-19: Negative Urinalysis: Elevated specific gravity, no evidence of urinary tract infection ?? Chest 2 Views Frontal and Lat?? No acute abnormality. ?? CT Angio Chest, CT Angio Abdomen?? CTA 1. No pulmonary embolism. 2. No thoracic aortic aneurysm or dissection. 3. No abdominal aortic aneurysm or dissection. 4. Short segment of dissection involving the mildly enlarged left common iliac artery. The appearance is unchanged since 04/05/2022. CHEST 1. No pulmonary or pleural abnormality.. ABDOMEN?? 1. No acute soft tissue abnormality.. 2. Again noted is a large diverticulum of the third part of the duodenum. 3. No bony abnormality. Interventions performed: Full dose aspirin Assessment/plan: Syncope - differential diagnoses: reflex (vasovagal??from his back pain), orthostatic , cardiac (arrhythmia, structural - valvular, myopathy, ischemic), ?? idiopathic?- rule out ??orthostatic , cardiac ??arrhythmia - will admit ??for cardiopulmonary monitoring and will serve as event monitor - ??serial troponins flat and in the absence of Chest pain and correlating EKG abnormality, unlikely?? - Check orthostatic vital signs - Monitor and correct electrolyte abnormalities?? - Keep on bed rest at night. ??Ambulate with assistance during the day Back pain with Lumbar stenosis??likely with radiculopathy?? PT consult Continue home pain meds Follow up with PCP +/- Orthopedic/back surgery Outpatient evaluation? Admission evaluation note * Clem RICHARD, Omar: MODIFY Jose Morse DO: MODIFY, MODIFY Morse DOSvenJose: MODIFY, MODIFY Morse DOSvenJose: MODIFY, MODIFY Morse DOSvenJose: MODIFY, MODIFY Morse DOSvenJose: MODIFY, MODIFY Morse DOJose: MODIFY, MODIFY Morse DOSvenOjse: MODIFY, MODIFY Morse DO Jose: MODIFY, MODIFY Morse DO Jose: MODIFY, MODIFY Morse DO Jose: MODIFY, MODIFY Morse DOSvenJose: MODIFY, PERFORM Jose Morse DO: PERFORM, MODIFY Mini DOSvenJose: MODIFY, MODIFY Morse DO, Jose: MODIFY, MODIFY Morse DO, Jose: MODIFY, MODIFY Morse DO, Jose: MODIFY, MODIFY Morse DO, Jose: MODIFY Event Display: Admission Note Authored Date: Patient: ??OSCAR MURRAY ? Age:??77 Years?Sex:??Male?:??1945?? Chief Complaint/Reason for Consultation Pt from home with c/o witnessed syncopal episode and was lowered to ground. Pt has home bp machine;reportedly 70/30 by family. Initial bp for EMS 93/60. Pt endorses some nausea. Pt had LOC for a fewseconds. History of Present Illness This is a 77-year-old male with history of CAD post CABG, heart failure, diabetes, stroke, CKD, COPD, CVA, hypertension, hyperlipidemia and chronic back pain who??presented to the ED??by ambulance after syncopal episode. ?? Patient reports that he??was??bringing toilet paper to the bathroom,??when??he experienced??electric-like shock??pain in his??left lower extremity, and experienced lower extremity weakness as a result. He held on to the wall and called his daughter who reportedly was present and helped lower him tothe ground without any injuries. He states that he does not remember falling but remembers waking up a few seconds later. Patient endorses some nausea, denied any chest pain, vision changes or dizziness. He was reported to be hypotensive by EMS. He does report having occasional chest pain on exertion, that he has to take nitroglycerine for as needed, the last time was about 2 weeks ago. denies chest pain at rest. ?? He reports a history of chronic back pain and electrical shock-like pain and weakness in his LLE asa result. He has a history of spinal surgery in early 1999s with history of chronic back pain for which he takes oxycodone currently. MRI of lumbar spine, 04/21/17??showed degenerative and postoperative changes of the lumbar spine superimposed upon a congenitally-narrowed spinal canal. At L4- L5, there is a new left foraminal disc herniation with compression of the exiting left L4 nerve roots.? Vital signs show the patient be afebrile, heart rate in the 60s, blood pressure of 110s-130s/60s-70s, saturating 100% on room air. Labs results of a leukocytosis of 12, H&H of 14/44, platelet count of 121, electrolytes within normal limits, BUN/creatinine of 18/1.1, BNP of 702, troponin of 20 followed by 18, UA without sign of infection, +1 albumin and high specific gravity. EKG shows sinus rhythm with a first-degree heart block, anterior/septal Q waves present, nonspecific T wave changes, without significant signs of new ischemia. So far in the emergency department the patient received 324 mg of aspirin, and 650 mg of Tylenol. ?? Imaging: Chest x-ray showed no acute abnormality. CT angio chest and abdomen showed no evidence of PE, no evidence of thoracic or abdominal aortic aneurysm or dissection.?? There was a short segment of dissection involving the mildly enlarged left common iliac artery.?? The appearance is unchanged since 04/05/2022. There was no pulmonary or pleural abnormality.?? No acute soft tissue abnormality in the abdomen, there is noted large right diverticulum in the third part of duodenum. No bony abnormality. Review of Systems A review of systems was completed and is otherwise negative except as mentioned in history of present illness. Objective Measurements?? Height: 168 cm (11/09/22) Weight: 75.2 kg (11/09/22) Dry Weight: 75.2 kg (11/09/22) Body Mass Index:??26.64 kg/m2??High (11/09/22) ? Vital Signs?? Temperature: 97.9 DegF (11/09/22 22:02:00) Temperature Route: Oral (11/09/22 22:02:00) Pulse Rate: 62 bpm (11/09/22 22:02:00) Respiratory Rate: 18 br/min (11/10/22 00:12:00) Vented: No (11/09/22 19:08:00) Systolic Blood Pressure: 134 mm Hg (11/09/22 22:02:00) Diastolic Blood Pressure: 71 mm Hg (11/09/22 22:02:00) Blood pressure sites: Arm, left (11/09/22 22:02:00) Mean Arterial Pressure: 92 mm Hg (11/09/22 22:02:00) Pulse Pressure: 63 mm Hg (11/09/22 22:02:00) Oxygen Saturation: 100 % (11/09/22 22:02:00) Mode of Delivery (Oxygen): Room air (11/09/22 22:02:00) Early Warning Score: 5 (11/10/22 00:14:46) ? Intake/Output? No Data Available ? Physical Exam General: The patient was found resting and in no acute distress. HEENT:??NCAT, EOMI, no scleral icterus,??moist mucus membranes, trachea midline. Cardiovascular: RRR S1 and S2 heard with no murmurs, rubs or gallops. Respiratory: Mild wheezing on the right, otherwise breath sounds clear to auscultation bilaterally. GI: Soft. Nontender and nondistended. Normal bowel sounds present. MSK: LLE with positive??SLR and positive??FABERs on the left, negative on the right,??no edema, no erythema in the lower extremities. Skin:??No rashes, bruises or skin breakdown. Neuro: No gross motor or neuro deficits. Sensation intact throughout. Psych: Alert and oriented x3, appropriate level of concern and pleasant. Assessment/Plan This is a 77-year-old male with history of CAD post CABG, heart failure, diabetes, stroke, CKD, COPD, CVA, hypertension, hyperlipidemia and chronic back pain who??presented to the ED??by ambulance after syncopal episode. ?? Syncope Possible vasovagal vs arrhythmia vs orthostatic Chronic back pain - L4 lumbar radiculopathy Pt presenting with a witnessed syncopal event and LOC witnessed by family, he was reportedly helpedto the ground w/o injury. Patient states he experienced shock like pain of the LLE which he has from chronic LBP and felt weak as a result, he called his daughter and does not remember falling to the ground. Labs, imaging and EKG without explanation for syncopal event. EKG shows sinus rhythm with a first-degree heart block (noted prior), anterior/septal Q waves present (noted on prior), nonspecific T wave changes, without significant signs of new ischemia. ACS not likely given troponin was 20 and 18, pt denied experiencing chest pain prior to syncope and currently. Past MRI of the lumbar spine -??degenerative and postoperative changes, a congenitally-narrowed spinal canal. At L4-L5, there is a new left foraminal disc herniation with compression of the exiting left L4 nerve roots. Current CTA imaging was significant for??a short segment of dissection involvingthe mildly enlarged left common iliac artery. The appearance is unchanged since 04/05/2022. CT angio chest and abdomen showed no evidence of PE, no evidence of thoracic or abdominal aortic aneurysm or dissection.?? Given patient reporting lower extremity nerve/shock-like pain possible vasovagal syncope vs arrhythmia vs orthostatic hypotension. Also to consider idiopathic vs autonomic causes and vertebral basilar syncope. ?? 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 CAD s/p CABG Stable angina Hypertension Patient reports having chest pain occasionally on exertion which he takes nitroglycerine for and goes away with rest. Last happened about 2 weeks ago. Hypotension reported by EMS, currently BP stable, 110s-130s/60s-70s. Pt??without chest pain. ? Plan -Continue with home medications, of aspirin, statin, kaya??isosorbide mononitrate and Coreg -Nitroglycerine PRN -Hold home amlodipine as above -Monitor vitals per unit standard -EKG PRN ?? Diabetes: ISS and POC ACHS, hold home metformin Continue home Farxiga - to be added by pharmacy ?? History of CVA: Continue with aspirin, statin, Plavix ?? Hyperlipidemia: Continue with atorvastatin, ezetimibe non-formulary ?? Quality Measures: VTE prophylaxis: Lovenox Diet: Cardiac Code status: Full code OMN:??Syncope Discharge planning:??Likely??1-2 days ?? Discussed with ??Clem ?? - Jose Morse DO - PGY2 - Internal Medicine - Pager # [phone]? See my addendum Histories Allergies Allergies ?(Active and Proposed Allergies Only) Duloxetine? (Severity: Unknown severity, Onset: Unknown) ?Reactions: rash ?Comments: GI ? Past Medical History/Problem List Active Problems??(28) Acute colitis 10/2021 Adrenal adenoma left;incidental 2020/normal rufina.plasma meranephr/normeta ASHD S/P CABG Benign Essential Hypertension BPH (benign prostatic hypertrophy) Chronic kidney disease, stage 2 (mild) Chronic pancreatitis Chronic Prostatitis 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% Diabetes mellitus with renal manifestation Dilated pancreatic duct S/P EGD/US 06/07/22 DM (diabetes mellitus), type 2 with peripheral vascular complications Ectatic aorta Elevated PSA Erectile dysfunction Erosive esophagitis Essential familial hyperlipidemia Failed back syndrome sx 1991 H/O: CVA ([place]) Inclusion cyst mucous rt tonsil Ischemic cardiomyopathy nursing home current use of opiate analgesic 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/neg BX 2020;ENT Sigmoid diverticulosis Spinal stenosis of lumbar region 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 2018 Tubular adenoma of colon 2014/ declines another colo;2020 Vitamin D deficiency ? Past Surgical History EGD with EUS- Enormous duodenal diverticulum on the medial wall of second portion. ??no mass lesionis seen at the ampulla. Nonspecific chronic inflammatory changes of the pancreas, findings suggestive of early chronic pancreatitis. Two, 3 to 4 mm anechoic: 06/07/22 CTangio ??of abdomen- No aortic dissection. Ectatic infrarenal aorta measuring up to 2.9 cm. Recommend follow-up ultrasound or CTA in 10 years per simplified ACR and SVS guidelines. Diffuse bronchialwall thickening suggesting bronchitis. Small type I hi: 04/05/22 MRI of abdomen dilated panc duct/ acending colon cloitus: 11/06/21 Chest X-ray SMALL LEFT EFFUSION: 11/04/21 CT of abdomen and pelvis inflam chngs rt colon/dilated pancreatic dyuct: 11/03/21 Echocardiogram EF 40-45%: 02/15/21 Fine needle aspiration biopsy of parotid gland;ne01/17/21 Holter monitor- Predominant rhythm is normal sinus rhythm. The average heart rate is 89 beats per minute with normal heart rate variability. The min HR 78/ max 108bpm. rare PACs and one couplet, there were no sustained supraventricular arrhythmias, ??rare: 01/04/21 EEG normal: 12/10/20 CT of brain nil,acute(sinus issues): 11/12/20 CT of abdomen and pelvis: 11/12/20 CT of thorax see report adenoma left: 11/12/20 MRI of brain- Small acute infarct in the right putamen and adjacent white matter. Mild small vesseldisease of the white matter and mild volume loss, slightly progressed from 2006.Tiny chronic lacunar infarcts in the right thalamus and right cerebellum.: 11/03/20 CT angiography of head and neck abnormal: 11/01/20 CABG x 3 - Coronary artery bypass grafts x 3 ??CABG x 3 ??(ALVAREZ-mid LAD, SVG- PDA, SVG-diag): 10/30/20 Cardiac catheterization ef 35% lad stent occludec RCA 99%: 10/20/20 Electrocardiogram sinus 78 t inversion V1-v4 and inf qs: 10/19/20 Electrocardiogram anterioor t inversion new: 10/13/20 SYLVIA rt 1.13 left 0.85: 11/29/19 Esophagogastroduodenoscopy gastritis duiodenitis: 08/27/17 MRI of lumbar spine- ??Degenerative and postoperative changes of the lumbar spine superimposed upona congenitally-narrowed spinal canal. At L4-L5, there is a new left foraminal disc herniation with compression of the exiting left L4 nerve roots.: 04/21/17 Urine cytology- negative: 08/05/16 Computed tomography, thorax; without contrast material: 01/24/16 Biopsy of prostate ne09/26/15 Colonoscopy: 03/09/15 PFT- Spirometry with normal FEV1 and FVC, but FEV1/FVC reduced consistent with mild obstruction. Significant response to bronchodilator. ??The MVV is consistent with the level of FEV1. ??TLC is normal. ??The diffusing capacity is mildly reduced, and lower si: 12/30/13 Computed tomography, abdomen and pelvis; with contrast material(s): 10/15/12 Polysomnogram: 08/26/11 angioplasty with stents: 09/23/04 ? Social History [...] Home Medications Albuterol (albuterol 90 mcg/inh inhalation powder)?2?puff(s)?180?Microgram?Inhalation?Every 4 hours?as needed?as needed Amlodipine (amLODIPine 5 mg oral tablet)?1?tab(s)?5?Milligram?By Mouth?Daily Ascorbic Acid (Vitamin C 500 mg oral tablet)?1?tab(s)?500?Milligram?By Mouth?Daily Aspirin (aspirin 81 mg oral enteric coated capsule)?1?capsule?81?Milligram?By Mouth?Daily Atorvastatin (atorvastatin 80 mg oral tablet)?1?tab(s)?By Mouth?Daily Carvedilol (Coreg 6.25 mg oral tablet)?6.25?Milligram?1?tablet?By Mouth?2 times aday Cholecalciferol (Vitamin D3 2000 intl units oral capsule)?1?capsule?50?Microgram?By Mouth?Daily?for 90?Days dapagliflozin (Farxiga 10 mg oral tablet)?1?tab(s)?10?Milligram?By Mouth?Daily?Increased strength Durable Medical Equipment (Freestyle Lancets)?See Instructions?for 30?Days?use as directed for Type 2 Diabetes Mellitusto test blood sugar BIDE11.9LON-lifetime Durable Medical Equipment (Freestyle Lite Test Strips)?See Instructions?for 30?Days?useas directed for Type 2 Diabetes Mellitusto test blood sugar BIDE11.9LON-lifetime Ezetimibe (ezetimibe 10 mg oral tablet)?TAKE 1 TABLET BY MOUTH DAILY TAKE WITH ATORVASTATIN Isosorbide Mononitrate (isosorbide mononitrate 60 mg oral tablet, extended release)?60?Milligram?1?tablet?By Mouth?Daily in AM?for 30?Days Lisinopril (lisinopril 5 mg oral tablet)?5?Milligram?1?tablet?By Mouth?Daily Metformin (metFORMIN 500 mg oral tablet)?See Instructions?1 tablet by mouth daily x 1 week then increase to 1 tablet 2 times a day Nitroglycerin (nitroglycerin 0.3 mg sublingual tablet)?1?tab(s)?0.3?Milligram?Sublingual?Every 5 minutes?as needed?as needed for chest pain?not to exceed 3 doses/15 min--ifpain persists, seek medical attention Oxycodone (oxyCODONE 10 mg oral tablet)?1?tab(s)?10?Milligram?By Mouth?Every 4 hours?as needed?as needed for pain Pantoprazole (pantoprazole 40 mg oral delayed release tablet)?1?tab(s)?40?Milligram?By Mouth?Daily ? Inpatient Medications Medications (20) Active SCHEDULED: (10) Ascorbic Acid 250 mg Tablet (Vitamin C 250 mg oral tablet) ??500 mg, By Mouth, Daily Aspirin 81 mg EC Tablet (aspirin 81 mg oral delayed release tablet) ??81 mg, By Mouth, Daily Atorvastatin 80 mg Tablet (atorvastatin 80 mg oral tablet) ??80 mg, By Mouth, Daily Carvedilol 6.25 mg Tablet (Coreg 6.25 mg oral tablet) ??6.25 mg, By Mouth, 2 times a day Enoxaparin 40 mg Inj (Enoxaparin Inj) ??40 mg 0.4 mL, Subcutaneous Injection, Daily Insulin Lispro 100 units/mL Inj (3mL) (Insulin LISPRO Sliding Scale) ??2-10 units, Subcutaneous Injection, 3 times a day before meals Isosorbide Mononitrate 30 mg ER Tablet (isosorbide mononitrate 30 mg oral tablet, extended release)??60 mg, By Mouth, Daily in AM Lisinopril 5 mg Tablet (lisinopril 5 mg oral tablet) ??5 mg, By Mouth, Daily NaCl 0.9% Flush 3ml (NaCL 0.9% Flush) ??3 mL, IV Push, Every 8 hours Vitamin D 1000 IU Tablet (Vitamin D3 2000 intl units oral capsule) ??2,000 International_Units, By Mouth, Daily CONTINUOUS: (0) PRN: (10) Acetaminophen 325 mg Tablet (Acetaminophen Tablet) ??650 mg, By Mouth, Every 4 hours Albuterol 90mcg/Inhalation Inhaler HFA (Ventolin 90 mcg Inhaler) ??180 mcg 2 puffs, Inhalation, Every 4 hours Dextromethorphan-Guaifenesin 20 mg-200 mg/10 mL Liqu UD (Robitussin DM Liquid) ??10 mL, By Mouth, Every 4 hours Melatonin 3 mg Tablet (Melatonin Tablet) ??3 mg, By Mouth, Daily at bedtime NaCl 0.9% Flush 3ml (NaCL 0.9% Flush) ??3 mL, IV Push, Every 8 hours Nitroglycerin 0.4 mg Sublingual Tablet (nitroglycerin 0.4 mg sublingual tablet) ??0.4 mg, Sublingual, Every 5 minutes OxyCODONE 5 mg IR Tablet (oxyCODONE 5 mg oral tablet) ??10 mg, By Mouth, Every 4 hours Polyethylene Glycol 17 Gm Powder (MiraLax Powder) ??17 Gm 1 pack/packet, By Mouth, Daily Senna 8.6 mg / Docusate 50 mg tablet (Docusate/Senna Tablet) ??1 tablet, By Mouth, 2 times a day Simethicone 80 mg Chewable Tablet (Simethicone Tablet) ??80 mg, Chew, 3 times a day ? Results Recent Labs BLOOD COUNT & DIFF WBC 12.0 k/mm3 (High)?? 11/09/2022 16:00 RBC 4.79 m/mm3 ()?? 11/09/2022 16:00 Hgb 14.2 Gm/dL ()?? 11/09/2022 16:00 Hct 44.6 % ()?? 11/09/2022 16:00 MCV 93.1 femtoliters ()?? 11/09/2022 16:00 MCH 29.6 pg ()?? 11/09/2022 16:00 MCHC 31.8 g/dL (Low)?? 11/09/2022 16:00 Platelet Count 121 k/mm3 (Low)?? 11/09/2022 16:00 RDW-SD 45.1 femtoliters ()?? 11/09/2022 16:00 MPV 12.6 femtoliters (High)?? 11/09/2022 16:00 Nucleated RBC (Automated) 0.0 #/100 WBC'S ()?? 11/09/2022 16:00 Abs. NRBC 0.0 k/mm3 ()?? 11/09/2022 16:00 Abs. Neut 9.4 k/mm3 (High)?? 11/09/2022 16:00 Abs. Lymph 1.4 k/mm3 ()?? 11/09/2022 16:00 Abs. [place] 0.9 k/mm3 ()?? 11/09/2022 16:00 Abs. Eo 0.2 k/mm3 ()?? 11/09/2022 16:00 Abs. Baso 0.1 k/mm3 ()?? 11/09/2022 16:00 Neut % 78.3 % (High)?? 11/09/2022 16:00 Lymph % 11.5 % (Low)?? 11/09/2022 16:00 [place] % 7.3 % ()?? 11/09/2022 16:00 Eos % 1.7 % ()?? 11/09/2022 16:00 Baso % 0.5 % ()?? 11/09/2022 16:00 Imm Gran 0.7 % ()?? 11/09/2022 16:00 Abs. Imm Gran 0.1 k/mm3 ()?? 11/09/2022 16:00 ?? CARDIAC Nt-Probnp 702 pg/mL (High)?? 11/09/2022 16:00 High Sensitivity Troponin (HSTnT) 18 ng/L ()?? 11/09/2022 17:23 ?? CHEM GENERAL Sodium 140 mmol/L ()?? 11/09/2022 16:00 Potassium 5.1 mmol/L ()?? 11/09/2022 16:00 Chloride 104 mmol/L ()?? 11/09/2022 16:00 Bicarbonate Level 26 mmol/L ()?? 11/09/2022 16:00 Anion Gap 10 ()?? 11/09/2022 16:00 Glucose Level 181 mg/dL (High)?? 11/09/2022 16:00 Glucose, POC 176 mg/dL (High)?? 11/09/2022 23:15 BUN 18 mg/dL ()?? 11/09/2022 16:00 Creatinine-Blood 1.1 mg/dL ()?? 11/09/2022 16:00 Estimated GFR Creatinine 69 ML/MIN/1.73 M2 ()?? 11/09/2022 16:00 Calcium 9.1 mg/dL ()?? 11/09/2022 16:00 ?? HEME OTHER Hold Blue Top SPECIMEN DISCARDED AFTER 4 HOURS. ()?? 11/09/2022 16:00 ?? UA/URINALYSIS Appear/Color, Urine YELLOW ()?? 11/09/2022 17:53 Specific [place], Urine >1.050 (High)?? 11/09/2022 17:53 pH, Urine 6.5 ()?? 11/09/2022 17:53 Albumin, Urine 1+ (Abnormal)?? 11/09/2022 17:53 Glucose, Urine NEGATIVE ()?? 11/09/2022 17:53 Ketones, Urine NEGATIVE ()?? 11/09/2022 17:53 Bilirubin, Urine NEGATIVE ()?? 11/09/2022 17:53 Hemoglobin, Urine NEGATIVE ()?? 11/09/2022 17:53 Nitrite, Urine NEGATIVE ()?? 11/09/2022 17:53 Leukocyte, Urine NEGATIVE ()?? 11/09/2022 17:53 Urobilinogen NORMAL mg/dL ()?? 11/09/2022 17:53 WBC's, Urine 1 /HPF ()?? 11/09/2022 17:53 RBC's, Urine NONE SEEN /HPF ()?? 11/09/2022 17:53 Squamous Epith 3 /HPF ()?? 11/09/2022 17:53 Mucus SLIGHT /LPF ()?? 11/09/2022 17:53 Hold Urine Culture Testing available 48 hours from time of collection. ()?? 11/09/2022 17:53 ?? URINE OTHER Est Creatinine Clearance 49.39 mL/min ()?? 11/09/2022 16:44 ?? VIROLOGY COVID-19 by RT-PCR NEGATIVE ()?? 11/09/2022 18:45 ? Urinalysis Albumin, Urine: 1+ Abnormal (17:53) Appear/Color, Urine: YELLOW (17:53) Bilirubin, Urine: NEGATIVE (17:53) Est Creatinine Clearance: 49.39 mL/min (16:44) Glucose, Urine: NEGATIVE (17:53) Hemoglobin, Urine: NEGATIVE (17:53) Hold Urine Culture: Testing available 48 hours from time of collection. (17:53) Ketones, Urine: NEGATIVE (17:53) Leukocyte, Urine: NEGATIVE (17:53) Mucus: SLIGHT (17:53) Nitrite, Urine: NEGATIVE (17:53) pH, Urine: 6.5 (17:53) RBC's, Urine: NONE SEEN (17:53) Specific [place], Urine:??>1.050??High (17:53) Squamous Epith: 3 /HPF (17:53) Urobilinogen: NORMAL (17:53) WBC's, Urine: 1 /HPF (17:53) ?? Microbiology ?? COVID-19 (Novel Coronavirus), Rapid PCR?? Completed?? Source: Nasal Body Site: Nose Collected Dt/Tm: 11/09/2022 18:45 Last Updated Dt/Tm: 11/09/2022 20:44 ? EKG study * Event Display: EKG Authored Date: * Event Display: ECG 12-Lead Authored Date: Please click on pdf link to open report * Event Display: ECG 12-Lead Authored Date: Ventricular Rate: 60 BPM Atrial Rate: 60 BPM P-R Interval: 234 ms QRS Duration: 86 ms Q-T Interval: 432 ms QTC Calculation(Bazett): 432 ms P [place]: 56 degrees R [place]: -18 degrees T [place]: 87 degrees Sinus rhythm with 1st degree A-V block Anteroseptal infarct (cited on or before 13-OCT-2020) Abnormal ECG When compared with ECG of 05-APR-2022 20:50, Questionable change in initial forces of Anterior leads Confirmed by LEXIS RICHARD [facility] ([id number]) on 11/10/2022 8:18:57 AM [place] * Katya Lawson MD: PERFORM, SIGN, VERIFY Event Display: [facility] Authored Date: Patient: OSCAR MURRAY Age: 77 years Sex: Male : 1945 Associated Diagnoses: None Author: Katya Lawson MD This is a 77-year-old male with history of CAD post CABG, heart failure, diabetes, stroke, CKD, COPD, CVA, hypertension, hyperlipidemia and chronic back pain who presented to the ED by ambulance after syncopal episode Syncopal episode looks like vasovagal Rule out arrhythmia and orthostatic hypotension Follow-up orthostatic vital signs which are still pending Continue cardiac monitoring Patient is seen by PT, recommended home Please see history and physical done today * Deanne Hayes RN: PERFORM, MODIFY, MODIFY, MODIFY, MODIFY, MODIFY, SIGN, VERIFY Event Display: Progress Note Hospital Authored Date: Patient: OSCAR MURRAY Age: 77 years Sex: Male : 1945 Associated Diagnoses: None Author: Deanne Hayes RN Findings Nursing Data Cardiac Data. : Cardiac Data. 11/09/2022 22:00 EDT Cardiovascular Symptoms None Nail Bed Color, Fingers [place] Skin Temperature Upper Extremities Warm Skin Temperature Lower Extremities Warm Heart Sounds S1, S2 Heart Rhythm Regular Cardiac Rhythm First degree heart block, Normal sinus rhythm Capillary Refill < 3 seconds Dorsalis Pedis Pulse, Left Normal Dorsalis Pedis Pulse, Right Normal Cardiovascular WNL except . Respiratory/Pulmonary Data. : Respiratory/Pulmonary Data. 11/09/2022 22:00 EDT Mode of Delivery (Oxygen) Room air Respiratory Symptoms None Respiratory effort Unlabored Cough No cough Respiratory pattern Regular Left Upper Lobe Breath Sounds Clear Right Upper Lobe Breath Sounds Clear Right Middle Lobe Breath Sounds Clear Left Lower Lobe Breath Sounds Clear Right Lower Lobe Breath Sounds Clear Respiratory Treatment(s) Cough and deep breathe Respiratory WNL except . Vital Signs : VITAL SIGNS SECTION 11/09/2022 22:02 EDT Temperature 97.9 DegF Temperature Route Oral Pulse Rate 62 bpm Respiratory Rate 20 br/min Systolic Blood Pressure 134 mm Hg Diastolic Blood Pressure 71 mm Hg Blood pressure sites Arm, left Mean Arterial Pressure 92 mm Hg Pulse Pressure 63 mm Hg Oxygen Saturation 100 % Mode of Delivery (Oxygen) Room air 11/09/2022 22:00 EDT Temperature 97.9 DegF Temperature Route Oral Pulse Rate 62 bpm Respiratory Rate 20 br/min Systolic Blood Pressure 134 mm Hg Diastolic Blood Pressure 71 mm Hg Blood pressure sites Arm, left Mean Arterial Pressure 92 mm Hg Pulse Pressure 63 mm Hg Oxygen Saturation 100 % Mode of Delivery (Oxygen) Room air . Narrative/Incidental Asssumed care of patient at 2150, pt a/ox4, denies dizziness, following commands appropriately, afebrile, VS wnl. Respirations even and unlabored on room air, LS CTA, pt denies sob at rest, endorses occasional ARIAS. NSR w/1st degree AVB on tele, denies chest pain, +cms and pps to all extremities, noedema. ABD soft, nontender +BS to all quads, pt denies N/V/D. States voiding in BR without difficulty, denies dysuria. Pt OOB with one assist and walker, steady, weak gait noted. Educated on plan of care and call valdes use, high fall risk precautions in place, call valdes within reach. See CIS for full assessment data and flow sheets, hourly rounding maintained, will continue monitoring as needed. . Note * Frida Bernard RN: PERFORM Event Display: Discharge/Transfer Note Hospital Authored Date: [id number] Nursing Discharge Note Entered On: 11/10/2022 18:01 EDT Performed On: 11/10/2022 18:00 EDT by Frida Bernard RN Nursing Discharge Note 2 Discharge Time : 11/10/2022 18:00 EDT Discharge Level of Care at Discharge : Home/Care Home/Foster Care Patient Left Unit Via : Wheelchair Patient Accompanied Off Unit with : Responsible adult DC Instructions Provided & Signed by Pt : Yes Patient Understands D/C Instructions : Yes Patient Instructions Discharge Signed : Yes Did Pt have Specialty Bed or Wound Vac : No Frida Bernard RN - 11/10/2022 18:00 EDT * Lulu RICHARD, Katya: MODIFY, PERFORM Event Display: Discharge/Transfer Note Hospital Authored Date: [id number] Patient: ??NOFAL, OSCAR ? Age:??77 Years?Sex:??Male?:??1945?? Patient Information Discharge Location: B Primary Care Physician: Leticia Foster NP Admit Date/Time: 11/09/22 14:49 Discharge Disposition Discharge Disposition: Home: No Services Discharge Diagnosis Syncope (R55) ?? _ Discharge Medications Albuterol (albuterol 90 mcg/inh inhalation powder)?2?puff(s)?180?Microgram?Inhalation?Every 4 hours?as needed?as needed Amlodipine (amLODIPine 5 mg oral tablet)?1?tab(s)?5?Milligram?By Mouth?Daily Ascorbic Acid (Vitamin C 500 mg oral tablet)?1?tab(s)?500?Milligram?By Mouth?Daily Aspirin (aspirin 81 mg oral enteric coated capsule)?1?capsule?81?Milligram?By Mouth?Daily Atorvastatin (atorvastatin 80 mg oral tablet)?1?tab(s)?By Mouth?Daily Carvedilol (Coreg 6.25 mg oral tablet)?6.25?Milligram?1?tablet?By Mouth?2 times aday Cholecalciferol (Vitamin D3 2000 intl units oral capsule)?1?capsule?50?Microgram?By Mouth?Daily?for 90?Days dapagliflozin (Farxiga 10 mg oral tablet)?1?tab(s)?10?Milligram?By Mouth?Daily?Increased strength Durable Medical Equipment (Freestyle Lancets)?See Instructions?for 30?Days?use as directed for Type 2 Diabetes Mellitusto test blood sugar BIDE11.9LON-lifetime Durable Medical Equipment (Freestyle Lite Test Strips)?See Instructions?for 30?Days?useas directed for Type 2 Diabetes Mellitusto test blood sugar BIDE11.9LON-lifetime Ezetimibe (ezetimibe 10 mg oral tablet)?TAKE 1 TABLET BY MOUTH DAILY TAKE WITH ATORVASTATIN Isosorbide Mononitrate (isosorbide mononitrate 60 mg oral tablet, extended release)?60?Milligram?1?tablet?By Mouth?Daily in AM?for 30?Days Lisinopril (lisinopril 5 mg oral tablet)?5?Milligram?1?tablet?By Mouth?Daily Metformin (metFORMIN 500 mg oral tablet)?See Instructions?1 tablet by mouth daily x 1 week then increase to 1 tablet 2 times a day Nitroglycerin (nitroglycerin 0.3 mg sublingual tablet)?1?tab(s)?0.3?Milligram?Sublingual?Every 5 minutes?as needed?as needed for chest pain?not to exceed 3 doses/15 min--ifpain persists, seek medical attention Oxycodone (oxyCODONE 10 mg oral tablet)?1?tab(s)?10?Milligram?By Mouth?Every 4 hours?as needed?as needed for pain Pantoprazole (pantoprazole 40 mg oral delayed release tablet)?1?tab(s)?40?Milligram?By Mouth?Daily ? Medications Started None?? Medications Discontinued None Doses Changed None Allergies Allergies ?(Active and Proposed Allergies Only) Duloxetine? (Severity: Unknown severity, Onset: Unknown) ?Reactions: rash ?Comments: GI ? PCP Follow-Up/Heads-Up Patient needs CBC BMP in 5 to 7 days Hospital Course ??This is a 77-year-old male with history of CAD post CABG, heart failure, diabetes, stroke, CKD, COPD, CVA, hypertension, hyperlipidemia and chronic back pain who??presented to the ED??by ambulance after syncopal episode. ?? Syncope Possible vasovagal vs arrhythmia vs orthostatic Chronic back pain - L4 lumbar radiculopathy Pt presenting with a witnessed syncopal event and LOC witnessed by family, he was reportedly helpedto the ground w/o injury. Patient states he experienced shock like pain of the LLE which he has from chronic LBP and felt weak as a result, he called his daughter and does not remember falling to the ground. Labs, imaging and EKG without explanation for syncopal event. EKG shows sinus rhythm with a first-degree heart block (noted prior), anterior/septal Q waves present (noted on prior), nonspecific T wave changes, without significant signs of new ischemia. ACS not likely given troponin was 20 and 18, pt denied experiencing chest pain prior to syncope and currently. Past MRI of the lumbar spine -??degenerative and postoperative changes, a congenitally-narrowed spinal canal. At L4-L5, there is a new left foraminal disc herniation with compression of the exiting left L4 nerve roots. Current CTA imaging was significant for??a short segment of dissection involvingthe mildly enlarged left common iliac artery. The appearance is unchanged since 04/05/2022. CT angio chest and abdomen showed no evidence of PE, no evidence of thoracic or abdominal aortic aneurysm or dissection.?? Given patient reporting lower extremity nerve/shock-like pain possible vasovagal syncope vs arrhythmia vs orthostatic hypotension. Also to consider idiopathic vs autonomic causes and vertebral basilar syncope. ?? Plan ?? Patient's syncope is most likely due to??back pain Telemetry no acute events Orthostatic??vitals negative Seen by PT, recommended home Plan to follow-up with orthopedics as outpatient Continue home pain medications ? CAD s/p CABG Stable angina Hypertension Patient reports having chest pain occasionally on exertion which he takes nitroglycerine for and goes away with rest. Last happened about 2 weeks ago. Hypotension reported by EMS, currently BP stable, 110s-130s/60s-70s. Pt??without chest pain. ? Plan Troponin stable -Continue with home medications, of aspirin, statin,??lisinopril, amlodipine??isosorbide mononitrate and Coreg ?? Diabetes:??Continue home metformin, Farxiga ?? History of CVA: Continue with aspirin, statin, Plavix ?? Hyperlipidemia: Continue with atorvastatin, ezetimibe non-formulary ?? Quality Measures: VTE prophylaxis: Lovenox Diet: Cardiac Code status: Full code ? Patient is clinically stable to be discharged to home Objective Assessment and Plan ? Measurements?? Height: 168 cm (11/10/22) Weight: 75.2 kg (11/09/22) Dry Weight: 75.2 kg (11/09/22) Body Mass Index:??26.64 kg/m2??High (11/09/22) ? Vital Signs?? Temperature: 97.8 DegF (11/10/22 15:05:00) Temperature Route: Oral (11/10/22 15:05:00) Pulse Rate: 61 bpm (11/10/22 15:05:00) Pulse Rate, Lyin bpm (11/10/22 15:59:00) Systolic Blood Pressure, Lyin mm Hg (11/10/22 15:59:00) Diastolic Blood Pressure, Lyin mm Hg (11/10/22 15:59:00) Pulse Rate, Sittin bpm (11/10/22 15:59:00) Systolic Blood Pressure, Sittin mm Hg (11/10/22 15:59:00) Diastolic Blood Pressure, Sittin mm Hg (11/10/22 15:59:00) Pulse Rate, Standin bpm (11/10/22 15:59:00) Systolic Blood Pressure, Standin mm Hg (11/10/22 15:59:00) Diastolic Blood Pressure, Standin mm Hg (11/10/22 15:59:00) Respiratory Rate: 18 br/min (11/10/22 15:05:00) Vented: No (11/09/22 19:08:00) Systolic Blood Pressure: 115 mm Hg (11/10/22 15:05:00) Diastolic Blood Pressure: 58 mm Hg (11/10/22 15:05:00) Blood pressure sites: Arm, left (11/10/22 15:05:00) Mean Arterial Pressure: 77 mm Hg (11/10/22 15:05:00) Pulse Pressure: 57 mm Hg (11/10/22 15:05:00) Oxygen Saturation: 99 % (11/10/22 15:05:00) Mode of Delivery (Oxygen): Room air (11/10/22 15:05:00) Early Warning Score: 5 (11/10/22 15:05:43) ? Intake/Output? 11/09 14:49 11/10 07:00 11/09 07:00 11/08 07:00 ?? 11/10 16:12 11/10 16:12 11/10 06:59 11/09 06:59 Urine Count ?1 ?0 ?1 ?0 ? . Physical Exam General: The patient was found resting and in no acute distress. HEENT:??NCAT, EOMI, no scleral icterus,??moist mucus membranes, trachea midline. Cardiovascular: RRR S1 and S2 heard with no murmurs, rubs or gallops. Respiratory: Mild wheezing on the right, otherwise breath sounds clear to auscultation bilaterally. GI: Soft. Nontender and nondistended. Normal bowel sounds present. MSK: LLE with positive??SLR Skin:??No rashes, bruises or skin breakdown. Neuro: No gross motor or neuro deficits. Sensation intact throughout. Psych: Alert and oriented x3, appropriate level of concern and pleasant. Consultants None Pending Results No Pending Results Follow-Up Appointments Added Follow Up ?Time Frame ?Comments Kristin Leticia SIMS Patient Instructions Please follow with your PCP in 5 to 7 days to check CBC, BMP Home Health Face to Face ^HomeHealthFTF Results Discharge Labs BLOOD COUNT & DIFF WBC 6.2 k/mm3 ()?? 11/10/2022 09:17 RBC 4.68 m/mm3 (Low)?? 11/10/2022 09:17 Hgb 13.8 Gm/dL ()?? 11/10/2022 09:17 Hct 42.9 % ()?? 11/10/2022 09:17 MCV 91.7 femtoliters ()?? 11/10/2022 09:17 MCH 29.5 pg ()?? 11/10/2022 09:17 MCHC 32.2 g/dL (Low)?? 11/10/2022 09:17 Platelet Count 104 k/mm3 (Low)?? 11/10/2022 09:17 RDW-SD 44.5 femtoliters ()?? 11/10/2022 09:17 MPV 12.1 femtoliters ()?? 11/10/2022 09:17 Nucleated RBC (Automated) 0.0 #/100 WBC'S ()?? 11/10/2022 09:17 Abs. NRBC 0.0 k/mm3 ()?? 11/10/2022 09:17 Abs. Neut 9.4 k/mm3 (High)?? 11/09/2022 16:00 Abs. Lymph 1.4 k/mm3 ()?? 11/09/2022 16:00 Abs. [place] 0.9 k/mm3 ()?? 11/09/2022 16:00 Abs. Eo 0.2 k/mm3 ()?? 11/09/2022 16:00 Abs. Baso 0.1 k/mm3 ()?? 11/09/2022 16:00 Neut % 78.3 % (High)?? 11/09/2022 16:00 Lymph % 11.5 % (Low)?? 11/09/2022 16:00 [place] % 7.3 % ()?? 11/09/2022 16:00 Eos % 1.7 % ()?? 11/09/2022 16:00 Baso % 0.5 % ()?? 11/09/2022 16:00 Imm Gran 0.7 % ()?? 11/09/2022 16:00 Abs. Imm Gran 0.1 k/mm3 ()?? 11/09/2022 16:00 ?? CARDIAC Nt-Probnp 702 pg/mL (High)?? 11/09/2022 16:00 High Sensitivity Troponin (HSTnT) 18 ng/L ()?? 11/09/2022 17:23 ?? CHEM GENERAL Sodium 140 mmol/L ()?? 11/10/2022 09:18 Potassium 5.0 mmol/L ()?? 11/10/2022 09:18 Chloride 105 mmol/L ()?? 11/10/2022 09:18 Bicarbonate Level 27 mmol/L ()?? 11/10/2022 09:18 Anion Gap 8 ()?? 11/10/2022 09:18 Glucose Level 181 mg/dL (High)?? 11/09/2022 16:00 Glucose, POC 137 mg/dL (High)?? 11/10/2022 11:10 BUN 15 mg/dL ()?? 11/10/2022 09:18 Creatinine-Blood 1.1 mg/dL ()?? 11/10/2022 09:18 Estimated GFR Creatinine 67 ML/MIN/1.73 M2 ()?? 11/10/2022 09:18 Calcium 9.1 mg/dL ()?? 11/09/2022 16:00 Magnesium 1.9 mg/dL ()?? 11/10/2022 09:18 ?? HEME OTHER Hold Blue Top SPECIMEN DISCARDED AFTER 4 HOURS. ()?? 11/09/2022 16:00 ? UA/URINALYSIS Appear/Color, Urine YELLOW ()?? 11/09/2022 17:53 Specific [place], Urine >1.050 (High)?? 11/09/2022 17:53 pH, Urine 6.5 ()?? 11/09/2022 17:53 Albumin, Urine 1+ (Abnormal)?? 11/09/2022 17:53 Glucose, Urine NEGATIVE ()?? 11/09/2022 17:53 Ketones, Urine NEGATIVE ()?? 11/09/2022 17:53 Bilirubin, Urine NEGATIVE ()?? 11/09/2022 17:53 Hemoglobin, Urine NEGATIVE ()?? 11/09/2022 17:53 Nitrite, Urine NEGATIVE ()?? 11/09/2022 17:53 Leukocyte, Urine NEGATIVE ()?? 11/09/2022 17:53 Urobilinogen NORMAL mg/dL ()?? 11/09/2022 17:53 WBC's, Urine 1 /HPF ()?? 11/09/2022 17:53 RBC's, Urine NONE SEEN /HPF ()?? 11/09/2022 17:53 Squamous Epith 3 /HPF ()?? 11/09/2022 17:53 Mucus SLIGHT /LPF ()?? 11/09/2022 17:53 Hold Urine Culture Testing available 48 hours from time of collection. ()?? 11/09/2022 17:53 ?? URINE OTHER Est Creatinine Clearance 49.39 mL/min ()?? 11/09/2022 16:44 ? VIROLOGY COVID-19 by RT-PCR NEGATIVE ()?? 11/09/2022 18:45 ? Microbiology ?? COVID-19 (Novel Coronavirus), Rapid PCR?? Completed?? Source: Nasal Body Site: Nose Collected Dt/Tm: 11/09/2022 18:45 Last Updated Dt/Tm: 11/09/2022 20:44 ? 45_ minutes spent on discharge * Frida Bernard RN: PERFORM Event Display: Patient Education/Instruction Authored Date: [id number] Inpatient Adult Discharge Instructions [address] [address] Name: OSCAR MURRAY : 1945 Visit: 11/09/2022 14:49:00 Current Date: 11/10/2022 17:37 Account: [id number] Inpatient Adult Discharge Instructions We would like [...] and their families. Surveys are administered by [employer] ?? If further treatment with your primary care physician or another doctor is recommended, it is important for you to keep the appointment. Call your primary care physician or return to the Emergency Department immediately if your condition worsens, fails to improve, or new symptoms develop. If you need to find a doctor, you can call [facility] for a referral at [phone] or toll free at [phone]) or log in to [email or web address].. ?? You can view and manage your care through the patient portal or by using a health care [place] of your choosing. [employer] is a website that allows you to securely view your medical information including your hospital discharge summary, office visit summaries, medications and follow-up visits. You can also request appointments, renew medications, and request access to your medical information using a health care [place] of your choosing, or just ask a question. You can enroll at [email or web address] or register during your next office visit. You have been discharged from [facility], Patient Care Unit: D3B. If you have any questions regarding these instructions after you leave, please call us and we will be happy to assist you. [facility] Your Care Team Attending Physician Katya Lawson MD Discharging Providers Lulu RICHARD, Katya Reason for Admission Pt from home with c/o witnessed syncopal episode and was lowered to ground. Pt has home bp machine;reportedly 70/30 by family. Initial bp for EMS 93/60. Pt endorses some nausea. Pt had LOC for a fewseconds. Your Diagnosis Syncope Tests Performed Below is a partial list of the tests performed during your hospitalization. You may have had other tests and procedures not included in this list. Please discuss all test results with your provider. Basic Metabolic Panel BUN CBC CBC w/ Differential COVID-19 (Novel Coronavirus), Rapid PCR Creatinine Electrolytes GLUCOSE POC High??Sensitivity??Troponin T Hold Blue Top Tube Magnesium Level ProBNP Urinalysis w/hold for Urine Culture CT Angio Abdomen CT Angio Chest XR Chest 2 Views Frontal and Lat Primary Care Provider Kristin Leticia SIMS Advance Directive Health Care Proxy on File Yes - Health Care Proxy Yes - MOLST Discharge Vitals Temperature: 97.8 DegF Height: 168 cm Pulse Rate: 61 bpm Weight: 75.2 kg Respiratory Rate: 18 br/min Body Mass Index:??26.64 kg/m2??High Systolic Blood Pressure: 115 mm Hg Body surface area: 1.87 Diastolic Blood Pressure: 58 mm Hg ?? Oxygen Saturation: 99 % ?? Studies Pending All tests and labs ordered during this hospital stay have been completed unless listed below. Please discuss all pending results with your provider listed above in these instructions. ?? No incomplete studies found What to do next Instructions From Your Doctor Please follow with your PCP in 5 to 7 days to check CBC, BMP ??please follow-up with orthopedics as outpatient in 3 to 4 weeks Discharge Orders Diet:??Cardiac diet You Need to Schedule the Following Appointments Follow Up with??Kristin SIMS, Leticia Hope Where: ?? Discharge Medications OSCAR MURRAY :1945 Visit Date:11/09/2022 Medications: Please continue your medications until treatment is completed or stopped by your provider. Medications not listed below should be discontinued. Discuss any questions related to medications with your provider. What How Much When Instructions Next Dose Unchanged Albuterol (albuterol 90 mcg/ inh inhalation powder) 2 puff(s) Inhalation Every 4 hours as needed for as needed Take as directed Unchanged Amlodipine (amLODIPine 5 mg oral tablet) 1 tab(s) Oral Daily Take on tomorrow Unchanged Ascorbic Acid (Vitamin C 500 mg oral tablet) 1 tab(s) Oral Daily Take on tomorrow Unchanged Aspirin (aspirin 81 mg oral enteric coated capsule) 1 capsule Oral Daily Take on tomorrow Unchanged Atorvastatin (atorvastatin 80 mg oral tablet) 1 tab(s) Oral Daily Take on tomorrow Unchanged Carvedilol (Coreg 6.25 mg oral tablet) 1 tab(s) Oral Twice a day Take on tonight Unchanged Cholecalciferol (Vitamin D3 2000 intl units oral capsule) 1 capsule Oral Daily Duration: 90 Days Take on tomorrow Unchanged dapagliflozin (Farxiga 10 mg oral tablet) 1 tab(s) Oral Daily Increased strength ?? Take on tomorrow Unchanged Durable Medical Equipment (Freestyle Lancets) See instructions Duration: 30 Days use as directed for Type 2 Diabetes Mellitus to test blood sugar BID E11.9 PHILLIP-lifetime ?? Unchanged Durable Medical Equipment (Freestyle Lite Test Strips) See instructions Duration: 30 Days use as directed for Type 2 Diabetes Mellitus to test blood sugar BID E11.9 PHILLIP-lifetime ?? Unchanged Ezetimibe (ezetimibe 10 mg oral tablet) TAKE 1 TABLET BY MOUTH DAILY TAKE WITH ATORVASTATIN ?? Take on tomorrow Unchanged Isosorbide Mononitrate (isosorbide mononitrate 60 mg oral tablet, extended release) 1 tab(s) Oral Daily in the morning Duration: 30 Days Take on tomorrow Unchanged Lisinopril (lisinopril 5 mg oral tablet) 1 tab(s) Oral Daily Take on tomrrow Unchanged Metformin (metFORMIN 500 mg oral tablet) See instructions 1 tablet by mouth daily x 1 week then increase to 1 tablet 2 times a day ?? Unchanged Nitroglycerin (nitroglycerin 0.3 mg sublingual tablet) 1 tab(s) Sublingual Every 5 minutes as needed for as needed for chest pain not to exceed 3 doses/ 15 min--if pain persists, seek medical attention ?? Unchanged Oxycodone (oxyCODONE 10 mg oral tablet) 1 tab(s) Oral Every 4 hours as needed for as needed for pain Take as directed Unchanged Pantoprazole (pantoprazole 40 mg oral delayed release tablet) 1 tab(s) Oral Daily Take on tomorrow Test Results Below is a partial list of the most recent Laboratory test results done prior to this discharge. You may have had other tests and procedures not included in this list. Please discuss all test resultswith your provider. Est Creatinine Clearance - 49.39 mL/min (11/09/2022) Basic Metabolic Panel (11/09/2022) ???Sodium - 140 mmol/L???Potassium - 5.1 mmol/L???Chloride - 104 mmol/L???Bicarbonate Level - 26 mmol/L???Anion Gap - 10???Glucose Level - 181 mg/dL???BUN - 18 mg/dL???Creatinine-Blood - 1.1 mg/dL???Estimated GFR Creatinine - 69 ML/MIN/1.73 M2???Calcium - 9.1 mg/dL BUN (11/10/2022) ???BUN - 15 mg/dL CBC (11/10/2022) ???WBC - 6.2 k/mm3???RBC - 4.68 m/mm3???Hgb - 13.8 Gm/dL???Hct - 42.9 %???MCV - 91.7 femtoliters???MCH - 29.5 pg???MCHC - 32.2 g/dL???Platelet Count - 104 k/mm3???RDW-SD - 44.5 femtoliters???MPV - 12.1 femtoliters???Nucleated RBC (Automated) - 0.0 #/100 WBC'S???Abs. NRBC - 0.0 k/mm3 CBC w/ Differential (11/09/2022) ???WBC - 12.0 k/mm3???RBC - 4.79 m/mm3???Hgb - 14.2 Gm/dL???Hct - 44.6 %???MCV - 93.1 femtoliters???MCH - 29.6 pg???MCHC - 31.8 g/dL???Platelet Count - 121 k/mm3???RDW-SD - 45.1 femtoliters???MPV - 12.6 femtoliters???Nucleated RBC (Automated) - 0.0 #/100 WBC'S???Abs. NRBC - 0.0 k/mm3???Abs. Neut - 9.4 k/mm3???Abs. Lymph - 1.4 k/mm3???Abs. [place] - 0.9 k/mm3???Abs. Eo - 0.2 k/mm3???Abs. Baso - 0.1 k/mm3???Neut % - 78.3 %???Lymph % - 11.5 %???[place] % - 7.3 %???Eos % - 1.7 %???Baso % - 0.5 %???Imm Gran - 0.7 %???Abs. Imm Gran - 0.1 k/mm3 COVID-19 (Novel Coronavirus), Rapid PCR (11/09/2022) ???COVID-19 by RT-PCR - NEGATIVE Creatinine (11/10/2022) ???Creatinine-Blood - 1.1 mg/dL???Estimated GFR Creatinine - 67 ML/MIN/1.73 M2 Electrolytes (11/10/2022) ???Sodium - 140 mmol/L???Potassium - 5.0 mmol/L???Chloride - 105 mmol/L???Bicarbonate Level - 27 mmol/L???Anion Gap - 8 GLUCOSE POC (11/10/2022) ???Glucose, POC - 137 mg/dL High??Sensitivity??Troponin T (11/09/2022) ???High Sensitivity Troponin (HSTnT) - 18 ng/L Hold Blue Top Tube (11/09/2022) ???Hold Blue Top - SPECIMEN DISCARDED AFTER 4 HOURS. Magnesium Level (11/10/2022) ???Magnesium - 1.9 mg/dL ProBNP (11/09/2022) ???Nt-Probnp - 702 pg/mL Urinalysis w/hold for Urine Culture (11/09/2022) ? ?Appear/Color, Urine - YELLOW? ?Specific [place], Urine - >1.050? ?pH, Urine - 6.5? ?Albumin, Urine - 1+???Glucose, Urine - NEGATIVE???Ketones, Urine - NEGATIVE???Bilirubin, Urine - NEGATIVE???Hemoglobin, Urine - NEGATIVE???Nitrite, Urine - NEGATIVE???Leukocyte, Urine - NEGATIVE???Urobilinogen- NORMAL???WBC's, Urine - 1 /HPF???RBC's, Urine - NONE SEEN???Squamous Epith - 3 /HPF???Mucus - SLIGHT???Hold Urine Culture - Testing available 48 hours from time of collection. Allergies (NKA means No Known Allergies) Duloxetine??(rash) Problems Active Problems??(29) Acute colitis 10/2021?? Adrenal adenoma left;incidental 2020/normal rufina.plasma meranephr/normeta?? ASHD S/P CABG?? Benign Essential Hypertension?? BPH (benign prostatic hypertrophy)?? Chronic kidney disease, stage 2 (mild)?? Chronic pancreatitis?? Chronic Prostatitis?? 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%?? Diabetes mellitus with renal manifestation?? Dilated pancreatic duct S/P EGD/US 06/07/22?? DM (diabetes mellitus), type 2 with peripheral vascular complications?? Ectatic aorta?? Elevated PSA?? Erectile dysfunction?? Erosive esophagitis?? Essential familial hyperlipidemia?? Failed back syndrome sx 1991?? H/O: CVA (rain stem,lacunes)?? Inclusion cyst mucous rt tonsil?? Ischemic cardiomyopathy?? 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 opiate contract?? Sigmoid diverticulosis?? Spinal stenosis of lumbar region?? 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 Tubular adenoma of colon 2014/ declines another colo;2020?? Vitamin D deficiency?? Education Materials Below is the list of Educational Leaflet Providered with your Discharge Instructions. Valuables and Belongings I fully understand and agree that [facility] accepts no responsibility for all my personal [...] home. ?? No Valuables/Belongings: No valuables/belongings present Review of Valuable and Belonging List: With patient Date for Pt to Sign Valuables/Belongings: 11/10/22 02:31:00 ?? Other Discharge Information ? Pulmonary Rehab [...] are strongly encouraged to quit. Please call [facility] at [phone] or [phone]) or log in to [email or web address] for referrals to smoking cessation programs. ?? 988 Suicide & Crisis Lifeline is available 16/12 if you or someone you know needs to find a reason to keep living. By calling 438 you'll be connected to a skilled, trained counselor at a crisis center in your area. INPATIENT DISCHARGE INSTRUCTIONS SIGNATURE PAGE OSCAR MURRAY Location:[facility] Registration Date and Time:11/09/2022 14:49 EDT Primary Care Physician: Leticia Foster NP, Attending Physician: Katya Lawson MD, I OSCAR MURRAY, have received the above patient education materials/instructions and have verbalized understanding. If ambulance or transport services are being used I further acknowledge being givena choice of service. ?? If you need to contact me, please call me at this number: . Patient/Repair Operator Name: Patient/Repair Operator Signature: Relationship to Patient: Witness Name/Signature: Date: Patient Care team information Care Team Personnel Name: Philomena Castillo Position: [facility] RN Supv Member Role: Primary Care Nurse Name: Leticia Foster NP Position: [facility] PCO Associate Professional Member Role: PCP Address: Address: [address] [place] [address]- [place] Name: Namita Barajas RN Position: [facility] RN Member Role: Primary Care Nurse Name: Tasha Back RN Position: [facility] RN Member Role: Primary Care Nurse Name: Margarita Serrano RN Position: [facility] RN Member Role: Primary Care Nurse Name: Delmis RNDevin Position: [facility] RN Member Role: Primary Care Nurse Name: Betsy Millan RN Position: [facility] RN Member Role: Primary Care Nurse Name: Peggy Jansen RN Position: [facility] RN Member Role: Primary Care Nurse Name: Cate Pabon RN Position: [facility] AMB Nurse Member Role: Primary Care Nurse Name: Janette Jones RN Position: [facility] RN Member Role: Primary Care Nurse Name: Deanne Hayes RN Position: [facility] RN Member Role: Primary Care Nurse Name: Vianney Mcneill RN Position: [facility] RN Member Role: Primary Care Nurse Name: Cindy Evans LPN Position: [facility] RN Member Role: Primary Care Nurse Name: Mary BRADLEY Attending Position: [facility] ED Medicine MD Name: Shari Lopez DO Position: [facility] Resident Member Role: ED Resident Address: Address: [address] [place] [address] [place] [address]- [place] Name: Wil Aburto RN Position: [facility] ED RN W/OE and Tasks Member Role: Patient Care Provider Name: Clari Hdez Position: [facility] ED TA [facility] Member Role: Thermostat Machine Tender Care Team Related Persons Name: INGE MURRAY Address: home [address] [place] [address] Name: NIK BARTON Address: [place] [address]
--- OUTSIDE RECORDS SUMMARY | 2022-12-09 11:33 | XMS_ITS | Continuity of Care Document ---
Author Name Unknown Organization [facility] Address [address] [place] [address]- Care Team Providers Care Acquisition Analyst Name Role Phone Kilo Smith MD Primary Care Physician Encounter [facility] Date(s): 09/26/20 - 10/03/20 [facility] [address] [place] [address]- Encounter Diagnosis Failed back syndrome sx 1991(Discharge Diagnosis) - 09/24/20 H/O lumbar discectomy 1991(Discharge Diagnosis) - 09/24/20 [facility] current use of opiate analgesic(Discharge Diagnosis) - 09/24/20 Benign Essential Hypertension(Discharge Diagnosis) - 09/24/20 PAD (peripheral artery disease)(Discharge Diagnosis) - 09/24/20 Attending Physician: Kilo Smith MD Allergies, Adverse Reactions, Alerts Substance Reaction Severity Status Duloxetine 1 Active No known allergies Active 1GI Immunizations Given and Recorded Vaccine Date Status Refusal Reason SARS-CoV-2 (COVID-19) mRNA BNT-162b2 vac 09/08/20 Recorded [...] 2Admin Note: VIS-GIVEN 3Result Comment: [02/28/2017] [facility]: [id number] [facility] 5Admin Note: VIS 12/18/2010 6Admin Note: VIS given 01/02/10 7Admin Note: vis 03/03 8Result Comment: error 9Admin Note: hep A #1 10Admin Note: vis 01/01 11Admin Note: VIS 12Admin Note: vis-given Medications amLODIPine 5 mg oral tablet 5 mg, 1, tablet, By Mouth, Daily, # 90 tablet, Refills 0, Tot. Refills 0, Maintenance, 08/17/20 15:28:00 EDT, Route to Pharmacy Electronically, [facility] #[id number], 168, cm, 07/17/20 14:04:00EST, Height Start Date: [...] 3 Refills, Maintenance, 09/08/20 16:38:00 EDT, Tablet, [facility] #[id number], Partial fill upon patient request if the [...] 07/18/20 14:07:00 EST, Route to Pharmacy Electronically, [facility] #[id number], 168, cm, 07/17/20 14:04:00 EST, Height Start Date: 07/18/20 Status: Ordered lamotrigine 25 mg oral tablet 25 mg, 1, tablet, By Mouth, 2 times a day, # 180 tablet, Refills 1, Tot. Refills 1, Maintenance, 08/21/20 16:55:00 EDT, Route to Pharmacy Electronically, [facility] #[id number], 168, cm, 04/18/20 10:07:00 EST, Height Start Date: 08/21/20 Stop Date: 02/17/21 Status: Ordered lisinopril 20 mg oral tablet 40 mg, 2, tablet, By Mouth, Daily, new dose, # 180 tablet, Refills 1, Tot. Refills 1, Maintenance, 09/08/19 15:55:00 EDT, Route to Pharmacy Electronically, [facility], new dose, 168, cm, 08/16/19 15:58:00 EDT, Height Start Date: 06/13/17 Stop Date: 03/06/20 Status: Ordered metFORMIN 1000 mg oral tablet 1 tablet = 1,000 mg, By Mouth, 2 times a day, with meals, # 180 tablet, 1 Refills, Maintenance, 03/06/20 15:49:00 EDT, Tablet, [facility], 168, cm, 12/06/19 13:53:00 EDT, [...] Refills, Maintenance, 08/17/20 15:28:00 EDT, EC Capsule, [facility] #[id number], 168, cm, 07/17/20 14:04:00 EST, Height Start [...] 0 Refills, Maintenance, 09/27/20 14:57:00 EDT, Tablet, [facility] #[id number], 10/04/20, 168, cm, 09/26/20 13:44:00 EDT, Height [...] polyps(Confirmed) 18 Active Inguinal hernia left(Confirmed) Active 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 Sims 4, 22had surgery 2011 23sx pending 24had sx 25seeing ENT 26surgery 1991 27MRI 2006 28possible ITP 29monitor 30Tubular adenoma 2015 Diagnosis Diagnosis Type Effective Dates Health Status Clinical Service Informant Failed back syndrome sx 1991 Discharge Diagnosis 09/24/20 H/O lumbar discectomy 1991 Discharge Diagnosis 09/24/20 [facility] current use of opiate analgesic Discharge Diagnosis 09/24/20 Benign Essential Hypertension Discharge Diagnosis 09/24/20 PAD (peripheral artery disease) Discharge Diagnosis 09/24/20 Vital Signs Most recent to oldest [Reference Range]: 1 Height 168 cm (09/26/20 1:44 PM) Weight 75.7 kg (09/26/20 1:44 PM) Oxygen Saturation [94-100 %] 98 % (09/26/20 1:44 PM) Pulse Rate [55-90 bpm] 81 bpm (09/26/20 1:44 PM) Body Mass Index [18.5-24.99] 26.82 *H* (09/26/20 1:44 PM) Blood Pressure [90-138/55-84 mm Hg] 130/ 70mm Hg (09/26/20 1:44 PM) Temperature [96.8-100.4 DegF] 98.3 DegF (09/26/20 1:44 PM) Mode of Delivery (Oxygen) Room air (09/26/20 1:44 PM) Blood pressure sites Arm, right (09/26/20 1:44 PM) Temperature Route Oral (09/26/20 1:44 PM) Weight Obtained Via Standing scale (09/26/20 1:44 PM) Social History Social History Type Response Smoking Status Former smoker; Tobac co use times per day: smoked < 1/2 PPD; Started at age: 18; Stopped at age: 65; entered on: 12/23/13 Sex
--- OUTSIDE RECORDS SUMMARY | 2022-12-09 11:33 | XMS_ITS | Continuity of Care Document ---
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 Name Role Phone Luis RICHARD, Kilo Pendleton Primary Care Physician [facility]counter [facility] Date(s): 08/22/21 - 09/21/21 [facility] Adult [address] [place] [address]- Allergies, Adverse Reactions, Alerts Substance Reaction Severity Status Duloxetine 1 rash Active 1GI Immunizations Given and Recorded Vaccine Date Status Refusal Reason SARS-CoV-2 mRNA ([id number]) vax 1 06/29/21 Given influenza virus vaccine, [...] Vaccine (oldterm) 14 03/11/06 Given 1Result Comment: [facility]-[id number] 2Result Comment: [facility]: [id number] 3Result Comment: [02/28/2017] HD [facility]: [id number] 4[facility] 5Admin Note: VIS 12/18/2010 [...] 0 Refills, Maintenance, 07/17/21 12:08:00 EST, [id number], Partial fill upon patient request if the [...] tablet, 3 Refills, Maintenance, 02/05/21 8:58:00 EDT, [facility] #[id number], 168, cm, 01/30/21 11:10:00 EDT, Height, 72.7, kg, 10/12/20 9:18:00 EDT, Dry Weight Start Date: 02/05/21 Status: Ordered baclofen 10 mg oral tablet 0.5, tablet, By Mouth, 3 times a day, # 45 tablet, Refills 0, Tot. Refills 0, 08/14/21 13:16:00 EDT, Route to Pharmacy Electronically, [facility] #[id number], 168, cm, 08/01/21 9:15:00 EST, Height, 72.7, kg, 10/12/20 9:18:00 EDT, Dry Weight Start Date: 08/14/21 Status: Ordered clopidogrel 75 mg oral tablet 75 mg, 1, tablet, By Mouth, Daily, Continue medication through 09/2021 unless otherwise instructed.,# 90 tablet, Refills 3, Tot. Refills 3, Maintenance, 12/28/20 9:56:00 EDT, Route to Pharmacy Electronically, [facility] #[id number], Partial fill... Start Date: 12/28/20 Status: Ordered Coreg 3.125 mg oral tablet 3.125 mg, 1, tablet, By Mouth, 2 times a day, # 60 tablet, Refills 11, Tot. Refills 11, Maintenance, 08/01/21 9:34:00 EST, Route to Pharmacy Electronically, [facility] #[id number], Partial fill upon patient request if the prescription is for a sc... Start Date: 08/01/21 Stop Date: 07/27/22 Status: Ordered docusate sodium 100 mg oral capsule 100 mg, 1, capsule, By Mouth, 2 times a day, # 60 capsule, Refills 6, Tot. Refills 6, Maintenance, 01/03/21 8:19:00 EDT, Route to Pharmacy Electronically, [facility] #[id number], Partial fill upon patient request if the prescription is for a sche... Start Date: 01/03/21 Status: Ordered ezetimibe 10 mg oral tablet 1 tablet = 10 mg, By Mouth, Daily, take with atorvastatin, # 30 tablet, 11 Refills, Maintenance, 12/03/20 16:45:00 EDT, Tablet, [facility] #[id number], Partial fill upon patient request if the prescription is for a schedule II opioid drug., 168,... Start Date: 12/03/20 Status: Ordered Farxiga 5 mg oral tablet 1 tablet = 5 mg, By Mouth, Daily, # 30 tablet, 6 Refills, Maintenance, 07/06/21 13:16:00 EST, Tablet, [facility] #[id number], Partial fill upon patient request if the [...] 11 Refills, Maintenance, 12/04/20 9:56:00 EDT, Powder, [facility] #[id number], Partial fill upon patient request if the prescription i... Start Date: 12/04/20 Status: Ordered isosorbide mononitrate 30 mg oral tablet, extended release 1 tablet, By Mouth, Daily in AM, # 30 tablet, 0 Refills, [facility] #[id number], 168, cm, 01/10/21 10:40:00 EDT, Height, 72.7, kg, 10/12/20 9:18:00 EDT, Dry Weight Start Date: 01/28/21 Status: Ordered lamotrigine 25 mg oral tablet 25 mg, 1, tablet, By Mouth, 2 times a day, # 180 tablet, Refills 1, Tot. Refills 1, Maintenance, 07/11/21 13:45:00 EST, Route to Pharmacy Electronically, [facility] #[id number], 168, cm, 07/06/21 13:13:00 EST, Height, 72.7, [...] 02/21/21 16:10:00 EDT, Route to Pharmacy Electronically, [facility] #[id number], Partial fill upon patient request if the prescription is for a schedule II opi... Start Date: 02/21/21 Status: Ordered nitroglycerin 0.3 mg sublingual tablet 1 tablet = 0.3 mg, Sublingual, Every 5 minutes, PRN as needed for chest pain, not to exceed 3 doses/15 min--if pain persists, seek medical attention, # 100 tablet, 0 Refills, Maintenance, 12/04/20 10:05:00 EDT, Tablet, [facility] #[id number], Par... Start Date: 12/04/20 Status: Ordered omeprazole 20 mg oral enteric coated capsule 1 capsule = 20 mg, By Mouth, Daily, before breakfast, # 90 capsule, 0 Refills, Maintenance, 07/11/21 9:03:00 EST, EC Capsule, [facility] #[id number], 168, cm, 07/06/21 13:13:00 EST, Height, 72.7, kg, 10/12/20 9:18:00 EDT, Dry Weight Start Date: 07/11/21 Stop Date: 10/09/21 Status: Ordered oxyCODONE 10 mg oral tablet 1 tablet = 10 mg, By Mouth, Every 4 hours, PRN as needed for pain, chronic back pain, # 168 tablet,0 Refills, Maintenance, 09/11/21 9:31:00 EDT, Tablet, [facility] #[id number], Partial fill upon patient request if the prescription is for a sched... Start Date: 09/11/21 Status: Ordered Vitamin C 500 mg oral [...] ef 35%/Echo Sept 2020 40-45%(Confirmed) 10/20/20 Active assisted current use of opi [...] week 19care ploan reviewed 20comm 2 21PHQ9;2. [place] 4, 22had surgery 2012 23sx pending 24had sx 25seeing ENT 26surgery 1991 27MRI 2007 28possible ITP 29monitor 30Tubular adenoma 2015 Social History Social History Type Response Smoking Status Former smoker; Tobac co use times per day: smoked < 1/2 PPD; Started at age: 18; Stopped at age: 65; entered on: 12/23/13 Sex
--- OUTSIDE RECORDS SUMMARY | 2022-12-09 11:33 | XMS_ITS | Continuity of Care Document ---
Author Name Unknown Organization [facility] Address [address] [place] [address]- Care Team Providers Care Accounting Clerk Name Role Phone Kilo Smith MD Primary Care Physician [phone] Encounter [facility] Date(s): 09/20/19 - 12/03/19 [facility] [address] [place] [address]- [facility] Attending Physician: Kilo Smith MD Admitting Physician: [...] 2Admin Note: VIS-GIVEN 3Result Comment: [02/28/2017] [facility]: [id number] 4[facility] 5Admin Note: VIS 12/18/2010 6Admin Note: VIS given 01/02/10 7Admin Note: vis 03/03 8Result Comment: error 9Admin Note: hep A #1 10Admin Note: vis 01/01 11Admin Note: VIS 12Admin Note: vis-given Medications amLODIPine 5 mg oral tablet 5 mg, 1, tablet, By Mouth, Daily, # 90 tablet, Refills 1, Tot. Refills 1, Maintenance, 09/08/19 15:55:00 EDT, Route to Pharmacy Electronically, [facility], 168, cm, 08/16/19 15:58:00 EDT, Height [...] 5 Refills, Maintenance, 10/06/19 15:53:00 EDT, Tablet, [facility], 168, cm, 08/16/19 15:58:00 EDT, Height Start Date: 10/06/19 Stop Date: 04/03/20 Status: Ordered Flonase 50 mcg/inh nasal spray 1 sprays, Nares, Both, 2 times a day, # 1 each, 3 Refills, Maintenance, 05/07/16 9:37:51, [place], 1 sprays Nares, Both 2 times a [...] 03/23/19 10:06:18 EDT, Route to Pharmacy Electronically, [id number], [facility] Start Date: 03/23/19 Status: Ordered lamotrigine 25 mg oral tablet 25 mg, 1, tablet, By Mouth, 2 times a day, # 60 tablet, Refills 5, Tot. Refills 5, Maintenance, 05/17/19 16:10:00 EST, Route to Pharmacy Electronically, [facility], 168, cm, 05/17/19 16:06:00 EST, Height Start Date: 05/17/19 Stop Date: 11/13/19 Status: Ordered lisinopril 20 mg oral tablet 40 mg, 2, tablet, By Mouth, Daily, new dose, # 180 tablet, Refills 1, Tot. Refills 1, Maintenance, 09/08/19 15:55:00 EDT, Route to Pharmacy Electronically, [facility], new dose, 168, cm, 08/16/19 15:58:00 EDT, Height Start Date: 06/13/17 Stop Date: 03/06/20 Status: Ordered loratadine 10 mg oral tablet 10 mg, 1, tablet, By Mouth, Daily, for seasonal allergies, # 30 tablet, Refills 2, Tot. Refills 2, Maintenance, 10/17/16 11:37:04, Route to Pharmacy Electronically, [id number], [facility] Start Date: 10/17/16 Status: Ordered metFORMIN 1000 mg oral tablet 1 tablet = 1,000 mg, By Mouth, 2 times a day, with meals, # 180 tablet, 1 Refills, Maintenance, 09/08/19 15:49:00 EDT, Tablet, [facility], 168, cm, 08/16/19 15:58:00 EDT, Height [...] see pharamcy note, 06/13/17 11:20:27, Narcan Nasal [place]: 4 mg (contents of 1 nasal spray): Narcan Nasal [place]: 4 mg (contents of 1 nasal spray), [...] Refills, Maintenance, 09/08/19 15:55:00 EDT, EC Capsule, [facility], 168, cm, 08/16/19 15:58:00 EDT, Height [...] 0 Refills, Maintenance, 11/16/19 17:07:00 EDT, Tablet, [facility], 11/24/19, 168, cm, 08/16/19 15:58:00 EDT, Height [...] of adenomatous colonic polyps(Confirmed) 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 [place] 4, 22had surgery 2011 23sx pending 24had sx 25seeing ENT 26surgery 1991 27MRI 2006 28possible ITP 29monitor 30Tubular adenoma 2014 Social History Social History Type Response Smoking Status Former smoker; Tobac co use times per day: smoked < 1/2 PPD; Started at age: 18; Stopped at age: 65; entered on: 12/23/13 Sex
--- OUTSIDE RECORDS SUMMARY | 2022-12-09 11:33 | XMS_ITS | Continuity of Care Document ---
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 Name Role Phone Kilo Smith MD Primary Care Physician Encounter [facility] Date(s): 02/09/21 - 02/16/21 [facility] [address] [place] [address]- Attending Physician: Elsie Irving MD Referring Physician: Kilo Smith MD Allergies, [...] 2Admin Note: VIS-GIVEN 3Result Comment: [02/28/2017] [facility]: [id number] 4Location History: [facility] 5Admin Note: VIS 12/18/2010 [...] tablet, 3 Refills, Maintenance, 02/05/21 8:58:00 EDT, [facility] #[id number], 168, cm, 01/30/21 11:10:00 EDT, Height, 72.7, [...] 2 Refills, Maintenance, 01/03/21 8:18:00 EDT, Tablet, [facility] #[id number], Partial fill upon patient request if the [...] 12/28/20 9:56:00 EDT, Route to Pharmacy Electronically, [facility] #[id number], Partial fill... Start Date: 12/28/20 Status: Ordered docusate sodium 100 mg oral capsule 100 mg, 1, capsule, By Mouth, 2 times a day, # 60 capsule, Refills 6, Tot. Refills 6, Maintenance, 01/03/21 8:19:00 EDT, Route to Pharmacy Electronically, [facility] #[id number], Partial fill upon patient request if the prescription is for a sche... Start Date: 01/03/21 Status: Ordered ezetimibe 10 mg oral tablet 1 tablet = 10 mg, By Mouth, Daily, take with atorvastatin, # 30 tablet, 11 Refills, Maintenance, 12/03/20 16:45:00 EDT, Tablet, [facility] #[id number], Partial fill upon patient request if the [...] Maintenance, DX: STROKE I63.9 LIFETIME NEED fax: [phone], 12/05/20 16:06:00 EDT, Supply Start Date: 12/05/20 Status: Ordered Incruse Ellipta 62.5 mcg/inh inhalation powder 1 each, Inhalation, Every 24 hours, doses should be taken at least 24 hours apart repaces spitriva,# 30 each, 11 Refills, Maintenance, 12/04/20 9:56:00 EDT, Powder, [facility] #[id number], Partial fill upon patient request if the prescription i... Start Date: 12/04/20 Status: Ordered isosorbide mononitrate 30 mg oral tablet, extended release 1 tablet, By Mouth, Daily in AM, # 30 tablet, 0 Refills, [facility] #[id number], 168, cm, 01/10/21 10:40:00 EDT, Height, 72.7, kg, 10/12/20 9:18:00 EDT, Dry Weight Start Date: 01/28/21 Status: Ordered isosorbide mononitrate 30 mg oral tablet, extended release 1 tablet, By Mouth, Daily in AM, # 30 tablet, 0 Refills, [facility] #[id number], 168, cm, 01/10/21 10:40:00 EDT, Height, 72.7, kg, 10/12/20 9:18:00 EDT, Dry Weight Start Date: 01/28/21 Status: Ordered lamotrigine 25 mg oral tablet 25 mg, 1, tablet, By Mouth, 2 times a day, # 180 tablet, Refills 1, Tot. Refills 1, Maintenance, 10/30/20 8:19:00 EDT, Route to Pharmacy Electronically, [facility] #[id number], 168, cm, 216:43:00 EDT, Height, 72.7, kg, [...] 1 Refills, Maintenance, 12/27/20 13:44:00 EDT, Tablet, [facility] #[id number], 168, cm, 12/01/20 9:19:00 EDT, Height, 72.7, kg, 10/12/20 9:18:00 EDT, Dry Weight Start Date: 12/27/20 Stop Date: 06/25/21 Status: Ordered metoprolol 25 mg oral tablet, extended release 12.5 mg, 0.5, tablet, By Mouth, Daily, # 30 tablet, Refills 2, Tot. Refills 2, Maintenance, 01/10/21 11:01:00 EDT, Route to Pharmacy Electronically, [facility] #[id number], Partial fill upon patient request if the prescription is for a schedule I... Start Date: 01/10/21 Status: Ordered nitroglycerin 0.3 mg sublingual tablet 1 tablet = 0.3 mg, Sublingual, Every 5 minutes, PRN as needed for chest pain, not to exceed 3 doses/15 min--if pain persists, seek medical attention, # 100 tablet, 0 Refills, Maintenance, 12/04/20 10:05:00 EDT, Tablet, [facility] #[id number], Par... Start Date: 12/04/20 Status: Ordered omeprazole 20 mg oral enteric coated capsule 1 capsule = 20 mg, By Mouth, Daily, before breakfast, # 90 capsule, 0 Refills, Maintenance, 02/13/21 15:28:00 EDT, EC Capsule, [facility] #[id number], 168, cm, 02/05/21 14:18:00 EDT, Height, 72.7, [...] tablet,0 Refills, Maintenance, 01/30/21 15:55:00 EDT, Tablet, [facility] #[id number], Partial fill upon patient request if the prescription is for a sche... Start Date: 01/30/21 Status: Ordered Plavix 75 mg oral tablet 75 mg, 1, tablet, By Mouth, Daily, # 90 tablet, Refills 3, Tot. Refills 3, Maintenance, 01/03/21 8:20:00 EDT, Route to Pharmacy Electronically, [facility] #[id number], Partial fill upon patient request if the prescription is for a schedule II opi... Start Date: 01/03/21 Status: Ordered Tub transfer bench Tub transfer bench, See Instructions, # 1 each, Refills 0, Tot. 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 [place] 4, 22had surgery 2011 23sx pending 24had sx 25seeing ENT 26surgery 1991 27MRI 2006 28possible ITP 29monitor 30Tubular adenoma 2014 Vital Signs Most recent to oldest [Reference Range]: 1 Height 168 cm (02/08/21 12:34 PM) Blood Pressure [90-138/55-84 mm Hg] 130/ 80mm Hg (02/08/21 12:34 PM) Social History Social History Type Response Smoking Status Former smoker; Tobac co use times per day: smoked < 1/2 PPD; Started at age: 18; Stopped at age: 65; entered on: 12/23/13 Sex
--- OUTSIDE RECORDS SUMMARY | 2022-12-09 11:33 | XMS_ITS | Continuity of Care Document ---
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 Name Role Phone Kristin Leticia SIMS Primary Care Physician [facility]counter [facility] Date(s): 04/09/22 - 05/09/22 [facility] Adult [address] [place] [address]- Attending Physician: Admtr, Ar8 Admitting Physician: Admtr, [...] inactivated 6 08/01/10 Gi radha SARS-CoV-2 mRNA ([id number]) vax 7 06/29/21 Given SARS-CoV-2 (COVID-19) mRNA [...] Vaccine (oldterm) 15 03/11/06 Given 1Result Comment: [facility]-[id number] 2Result Comment: [facility]: [id number] 3Result Comment: [02/28/2017] HD [facility]: [id number] 4Location History: [facility] 5Admin Note: VIS 12/18/2010 6Admin Note: VIS given 01/02/10 7Result Comment: [facility]-[id number] 8Admin Note: VIS 9Admin Note: VIS-GIVEN 10Admin [...] 0 Refills, Maintenance, 07/17/21 12:08:00 EST, Tablet, [facility] #[id number], Partial fill upon patient request if the [...] tablet, 1 Refills, Maintenance, 01/22/22 12:14:00 EDT, [facility] #[id number], 168, cm, 12/26/21 15:45:00 EDT, Height, 88.5, kg, 11/04/21 16:51:00 EDT, Dry Weight Start Date: 01/22/22 Status: Ordered baclofen 10 mg oral tablet 0.5, tablet, By Mouth, 3 times a day, # 45 tablet, Refills 0, Tot. Refills 0, 08/14/21 13:16:00 EDT, Route to Pharmacy Electronically, [facility] #[id number], 168, cm, 08/01/21 9:15:00 EST, Height, 72.7, kg, 10/12/20 9:18:00 EDT, Dry Weight Start Date: 08/14/21 Status: Ordered clopidogrel 75 mg oral tablet 75 mg, 1, tablet, By Mouth, Daily, Continue medication through 09/2021 unless otherwise instructed.,# 90 tablet, Refills 3, Tot. Refills 3, Maintenance, 12/28/20 9:56:00 EDT, Route to Pharmacy Electronically, [facility] #[id number], Partial fill... Start Date: 12/28/20 Status: Ordered Coreg 6.25 mg oral tablet 6.25 mg, 1, tablet, By Mouth, 2 times a day, # 60 tablet, Refills 0, Tot. Refills 0, Maintenance, 04/08/22 15:17:00 EST, Route to Pharmacy Electronically, [facility], Partial fill upon patient request if the prescription is for a schedul... Start Date: 04/08/22 Status: Ordered Farxiga 10 mg oral tablet 1 tablet = 10 mg, By Mouth, Daily, Increased strength, # 30 tablet, 0 Refills, Maintenance, 01/16/22 9:53:00 EDT, Tablet, [facility] #77995, Increased strength, 168, cm, 12/26/21 15:45:00 EDT, [...] 05/02/22 13:11:00 EST, Route to Pharmacy Electronically, [facility] #[id number], Partial fill upon patient request if the prescription is for a schedule... Start Date: 05/02/22 Stop Date: 10/29/22 Status: Ordered lamotrigine 25 mg oral tablet 25 mg, 1, tablet, By Mouth, 2 times a day, # 180 tablet, Refills 1, Tot. Refills 1, Maintenance, 01/22/22 12:14:00 EDT, Route to Pharmacy Electronically, [facility] #[id number], 168, cm, 12/26/21 15:45:00 EDT, Height, 88.5, kg, 11/04/21 16:51:00... Start Date: 01/22/22 Status: Ordered lisinopril 5 mg oral tablet 5 mg, 1, tablet, By Mouth, Daily, # 90 tablet, Refills 3, Tot. Refills 3, Maintenance, 03/10/22 22:37:00 EDT, Route to Pharmacy Electronically, [facility] #[id number], Partial fill upon patient request if the prescription is for a schedule II opi... Start Date: 03/10/22 Status: Ordered nitroglycerin 0.3 mg sublingual tablet 1 tablet = 0.3 mg, Sublingual, Every 5 minutes, PRN as needed for chest pain, not to exceed 3 doses/15 min--if pain persists, seek medical attention, # 100 tablet, 0 Refills, Maintenance, 12/04/20 10:05:00 EDT, Tablet, [facility] #[id number], Par... Start Date: 12/04/20 Status: Ordered omeprazole 20 mg oral enteric coated capsule 1 capsule = 20 mg, By Mouth, Daily, in AM, # 90 capsule, 1 Refills, Maintenance, 04/09/22 11:29:00 EST, EC Capsule, [facility] #[id number], 168, cm, 04/09/22 11:04:00 EST, Height, 74, kg, 04/06/22 1:20:00 EST, Dry Weight Start Date: 04/09/22 Stop Date: 10/06/22 Status: Ordered oxyCODONE 10 mg oral tablet 1 tablet = 10 mg, By Mouth, Every 4 hours, PRN as needed for pain, chronic back pain, # 168 tablet,0 Refills, Maintenance, 05/03/22 12:21:00 EST, Tablet, [facility] #[id number], Partial fill upon patient request if the [...] Confirmed Active Ischemic cardiomyopathy Confirmed 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 [place] 4, 22had surgery 2011 23sx pending 24had [...] 65; entered on: 12/23/13 Sex Note * Event Display: Laboratory Result Scanned Authored Date: * Event Display: Laboratory Result Scanned Authored Date: * Event Display: [facility] Inpatient Records Authored Date: * Event Display: Non BH Lab Results Authored Date: * Event Display: Non BH Lab Results Authored Date: * Event Display: Non BH Lab Results Authored Date: * Event Display: IR Special Procedures, Non-BH Authored Date: * Event Display: Radiology Result Scanned Authored Date: * [place]: PERFORM Event Display: Cardiovascular Results Scanned Authored Date: EKG study * Event Display: EKG Authored Date: [id number] Patient Care team information Care Team Personnel Name: Philomena Castillo Position: [facility] RN Supv Member Role: Primary Care Nurse Name: Leticia Foster NP Position: [facility] PCO Associate Professional Member Role: PCP Address: Address: [address] [place] [address]- Name: Namita Barajas RN Position: S RN Member Role: Primary Care Nurse Name: Tasha Back RN Position: [facility] RN Member Role: Primary Care Nurse Name: Jenny Bustillos RN Position: [facility] RN Member Role: Primary Care Nurse Name: Margarita Serrano RN Position: [facility] RN Member Role: Primary Care Nurse Name: Devin Benites RN Position: [facility] RN Member Role: Primary Care Nurse Name: Betsy Millan RN Position: [facility] RN Member Role: Primary Care Nurse Name: Peggy Jansen RN Position: [facility] RN Member Role: Primary Care Nurse Name: Cate Pabon RN Position: [facility] PCO RN Member Role: Primary Care Nurse Name: Janette Jones RN Position: [facility] RN Member Role: Primary Care Nurse Name: Vianney Mcneill RN Position: [facility] RN Member Role: Primary Care Nurse Name: Cindy Evans LPN Position: [facility] RN Member Role: Primary Care Nurse Care Team Related Persons Name: INGE MURRAY Address: [address] [place] [address] Name: NIK BARTON Address: [place] [address]
--- OUTSIDE RECORDS SUMMARY | 2022-12-09 11:33 | XMS_ITS | Continuity of Care Document ---
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(Discharge Diagnosis) - 04/10/22 Benign Essential Hypertension(Discharge Diagnosis) - 04/09/22 Ectatic aorta(Discharge Diagnosis) - 04/09/22 Essential familial hyperlipidemia(Discharge Diagnosis) - 04/09/22 Ischemic cardiomyopathy(Discharge Diagnosis) - 04/09/22 Attending Physician: Not on Staff, Attending MD Allergies, Adverse Reactions, Alerts Substance Reaction [...] inactivated 6 08/01/10 Gi radha SARS-CoV-2 mRNA ([id number]) vax 7 2/4/22 Given SARS-CoV-2 (COVID-19) mRNA BNT-162b2 vac 09/29/20 [...] Vaccine (oldterm) 15 03/11/06 Given 1Result Comment: [facility]-[id number] 2Result Comment: [facility]: [id number] 3Result Comment: [02/28/2017] [facility]: [id number] [facility] 5Admin Note: VIS 12/18/2010 6Admin Note: VIS given 01/02/10 7Result Comment: [facility]-[id number] 8Admin Note: VIS 9Admin Note: VIS-GIVEN 10Admin [...] 0 Refills, Maintenance, 07/17/21 12:08:00 EST, Tablet, [facility] #[id number], Partial fill upon patient request if the [...] tablet, 1 Refills, Maintenance, 01/22/22 12:14:00 EDT, [facility] #[id number], 168, cm, 12/26/21 15:45:00 EDT, Height, 88.5, kg, 11/04/21 16:51:00 EDT, Dry Weight Start Date: 01/22/22 Status: Ordered baclofen 10 mg oral tablet 0.5, tablet, By Mouth, 3 times a day, # 45 tablet, Refills 0, Tot. Refills 0, 08/14/21 13:16:00 EDT, Route to Pharmacy Electronically, [facility] #[id number], 168, cm, 08/01/21 9:15:00 EST, Height, 72.7, kg, 10/12/20 9:18:00 EDT, Dry Weight Start Date: 08/14/21 Status: Ordered clopidogrel 75 mg oral tablet 75 mg, 1, tablet, By Mouth, Daily, Continue medication through 09/2021 unless otherwise instructed.,# 90 tablet, Refills 3, Tot. Refills 3, Maintenance, 12/28/20 9:56:00 EDT, Route to Pharmacy Electronically, [facility] #[id number], Partial fill... Start Date: 12/28/20 Status: Ordered Coreg 6.25 mg oral tablet 6.25 mg, 1, tablet, By Mouth, 2 times a day, # 60 tablet, Refills 0, Tot. Refills 0, Maintenance, 04/08/22 15:17:00 EST, Route to Pharmacy Electronically, [facility], Partial fill upon patient request if the prescription is for a schedul... Start Date: 04/08/22 Status: Ordered Farxiga 10 mg oral tablet 1 tablet = 10 mg, By Mouth, Daily, Increased strength, # 30 tablet, 0 Refills, Maintenance, 01/16/22 9:53:00 EDT, Tablet, [facility] #[id number], Increased strength, 168, cm, 12/26/21 15:45:00 EDT, [...] 04/08/22 15:16:00 EST, Route to Pharmacy Electronically, [facility], Partial fill upon patient request if the prescription is for a schedule II... Start Date: 04/08/22 Status: Ordered lamotrigine 25 mg oral tablet 25 mg, 1, tablet, By Mouth, 2 times a day, # 180 tablet, Refills 1, Tot. Refills 1, Maintenance, 01/22/22 12:14:00 EDT, Route to Pharmacy Electronically, [facility] #[id number], 168, cm, 12/26/21 15:45:00 EDT, Height, 88.5, kg, 11/04/21 16:51:00... Start Date: 01/22/22 Status: Ordered lisinopril 5 mg oral tablet 5 mg, 1, tablet, By Mouth, Daily, # 90 tablet, Refills 3, Tot. Refills 3, Maintenance, 03/10/22 22:37:00 EDT, Route to Pharmacy Electronically, [facility] #[id number], Partial fill upon patient request if the prescription is for a schedule II opi... Start Date: 03/10/22 Status: Ordered nitroglycerin 0.3 mg sublingual tablet 1 tablet = 0.3 mg, Sublingual, Every 5 minutes, PRN as needed for chest pain, not to exceed 3 doses/15 min--if pain persists, seek medical attention, # 100 tablet, 0 Refills, Maintenance, 12/04/20 10:05:00 EDT, Tablet, [facility] #[id number], Par... Start Date: 12/04/20 Status: Ordered omeprazole 20 mg oral enteric coated capsule 1 capsule = 20 mg, By Mouth, Daily, in AM, # 90 capsule, 1 Refills, Maintenance, 04/09/22 11:29:00 EST, EC Capsule, [facility] #[id number], 168, cm, 04/09/22 11:04:00 EST, Height, 74, kg, 04/06/22 1:20:00 EST, Dry Weight Start Date: 04/09/22 Stop Date: 10/06/22 Status: Ordered oxyCODONE 10 mg oral tablet 1 tablet = 10 mg, By Mouth, Every 4 hours, PRN as needed for pain, chronic back pain, # 168 tablet,0 Refills, Maintenance, 03/26/22 11:02:00 EDT, Tablet, [facility] #[id number], Partial fill upon patient request if the [...] Confirmed Active Ischemic cardiomyopathy Confirmed 10/20/20 Active half-way current use of opiate analgesic 19, 20, [...] 2-021 Confirmed 11/12/20 Active 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 [place] 4, 22had surgery 2011 23sx pending 24had sx 25seeing ENT 26surgery 1991 27MRI 2006 28possible ITP 29monitor 30Tubular adenoma 2014 Diagnosis Diagnosis Type Effective Dates Health Status Clinical Service Informant ASHD Discharge Diagnosis 04/09/22 Non-Specified Benign Essential Hypertension Discharge Diagnosis 04/09/22 Ectatic aorta Discharge Diagnosis 04/09/22 Essential familial hyperlipidemia Discharge Diagnosis 04/09/22 Ischemic cardiomyopathy Discharge Diagnosis 04/09/22 Subconjunctival hemorrhage of right eye Discharge Diagnosis 04/09/22 Diabetes mellitus with renal manifestation Discharge Diagnosis 04/10/22 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 2018 Discharge Diagnosis 04/10/22 Vital Signs Most recent to oldest [Reference Range]: 1 Height 168 cm (04/09/22 11:04 AM) Weight 75.6 kg (04/09/22 11:04 AM) Oxygen Saturation [94-100 %] 98 % (04/09/22 11:04 AM) Pulse Rate [55-90 bpm] 68 bpm (04/09/22 11:04 AM) Body Mass Index [18.5-24.99 kg/m2] 26.79 kg/m2 *H* (04/09/22 11:04 AM) Blood Pressure [90-138/55-84 mm Hg] 118/ 70mm Hg (04/09/22 11:04 AM) Mode of Delivery (Oxygen) Room air (04/09/22 11:04 AM) Blood pressure sites Arm, left (04/09/22 11:04 AM) Weight Obtained Via Standing scale (04/09/22 11:04 AM) Social History Social History Type Response Smoking Status Former smoker; Tobac co use times per day: smoked < 1/2 PPD; Started at age: 18; Stopped at age: 65; entered on: 12/23/13 Sex Note * Ellen Mcneill: PERFORM, SIGN, VERIFY Event Display: Patient Education/Instruction Authored Date: [id number] [facility] *BMP So [place] Dangelo Clinical Summary Name OSCAR MURRAY Age 77 Years 1945 PCP Leticia Foster NP PCP Visit Date 04/09/2022 11:02:00 Additional Instructions: Scheduled Appointments?? Future Appointments ?[facility] ?[address]??[place],??[place],??[address] ?Phone:??[phone]?Fax:??-- ?Appt. Date:??06/07/2022?2:45 PM ?Scheduled Provider:??[id number] ?*BMP??[facility] ?[address] ?Phone:??--?Fax:??-- ?Appt. Date:??06/21/2022?12:50 PM ?Scheduled Provider:??Leticia Foster NP Follow-Up Instructions ?? Diagnosis Essential (primary) hypertension; Atherosclerotic heart disease of [place] coronary artery without angina pectoris; Other hyperlipidemia; Aortic ectasia, unspecified site; Conjunctival hemorrhage, right eye; Ischemic cardiomyopathy Medications: Please continue your medications until treatment is completed or stopped by your provider. Discuss any questions related to medications with your provider. New Medications [facility] #[id number], [address], [place] [id number], [phone] Omeprazole (omeprazole 20 mg oral enteric coated capsule) 1 capsule Oral Daily for 90 Days. in AM. Refills: 1. Next Dose: Medications to Continue with No Changes These [...] day. Refills: 0. Next Dose: Carvedilol (Coreg 6.25 mg oral [...] for Type 1 Diabetes Mellitus. Next Dose: Isosorbide Mononitrate (isosorbide mononitrate 60 mg oral tablet, extended release) 1 tab(s) Oral Daily in the morning. Refills: 0. Next Dose: Lamotrigine (lamotrigine 25 mg oral tablet) 1 tab(s) Oral twice a day. Refills: 1. Next Dose: Lisinopril (lisinopril 5 mg oral [...] chronic back pain. Refills: 0. Next Dose: Allergy Info:?? Duloxetine Medications Given This Visit Future Orders ?No future orders Vital Signs Height 168 cm Weight 75.6 kg BMI 26.79 kg/m2 Blood Pressure 118 mm Hg/70 mm Hg Temperature Pulse Rate 68 bpm Respiratory Rate 02 Sat Mode of Delivery 98 %/Room air You can now view a summary of your hospital visit from the comfort of your home through a free online portal called [employer]. [employer] is a website that allows you to securely view your medical information including discharge summary, medications and follow-up visits. ??You can alsosend a secure electronic message to your doctor???s office to request appointments, renew medications or just ask a question. You can enroll at [email or web address] or register during your next office visit. [...] primary care provider, you may find a [facility] provider by calling [facility] at [phone]. For information about the plan of care [...] Care Nurse Name: Leticia Foster NP Position: [facility] Associate Professional Member Role: PCP Address: Address: [address] [place] [id number] Name: Namita Barajas RN Position: S RN [...] Care Nurse Name: Cate Pabon RN Position: [facility] RN Member Role: Primary Care Nurse Name: Marian Rahman RN Position: S RN Member Role: Primary Care Nurse Name: Janette Jones RN Position: S RN Member Role: Primary Care Nurse Name: Vianney Mcneill RN Position: S RN Member Role: Primary Care Nurse Name: Cindy Evans LPN Position: S RN Member Role: Primary Care Nurse Care Team Related Persons Name: TERRI INGE Address: home [address] [place] [address] Name: NIK BARTON Address: [place] [address]
--- OUTSIDE RECORDS SUMMARY | 2022-12-09 11:33 | XMS_ITS | Continuity of Care Document ---
Author Name Unknown Organization [facility] Address [address] [place] [id number]- Care Team Providers Care Tdp Displays Analyst Name Role Phone Luis RICHARD, Kilo Pendleton Primary Care Physician Encounter [facility] Date(s): 10/12/20 - 11/11/20 [facility] [address] [place] [id number] Allergies, Adverse Reactions, Alerts Substance Reaction Severity [...] VIS 2Admin Note: VIS-GIVEN 3Result Comment: [02/28/2017] [facility]: [id number] 4[facility] 5Admin Note: VIS 12/18/2010 [...] Inhalation Solution Start Date: 11/07/20 Status: Ordered lamotrigine 25 mg oral tablet 25 mg, 1, tablet, By Mouth, 2 times a day, # 180 tablet, Refills 1, Tot. 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 [place] 4, 22had surgery 2011 23sx pending 24had sx 25seeing ENT 26surgery 1991 27MRI 2006 28possible ITP 29monitor 30Tubular adenoma 2014 Social History Social History Type Response Smoking Status Former smoker; Tobac co use times per day: smoked < 1/2 PPD; Started at age: 18; Stopped at age: 65; entered on: 12/23/13 Sex
--- OUTSIDE RECORDS SUMMARY | 2022-12-09 11:33 | XMS_ITS | Continuity of Care Document ---
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 Phone Luis RICHARD, Kilo Pendleton Primary Care Physician [phone] Encounter [facility] Date(s): 08/21/20 - 09/20/20 [facility] Adult [address] [place] [address]- Attending Physician: Admrenzo, Mitesh Admitting Physician: AdmtrMitesh [...] VIS 2Admin Note: VIS-GIVEN 3Result Comment: [02/28/2017] [facility]: [id number] 4[facility] 5Admin Note: VIS 12/18/2010 6Admin Note: VIS given 01/02/10 7Admin Note: vis 03/03 8Result Comment: error 9Admin Note: hep A #1 10Admin Note: vis 01/01 11Admin Note: VIS 12Admin Note: vis-given Medications amLODIPine 5 mg oral tablet 5 mg, 1, tablet, By Mouth, Daily, # 90 tablet, Refills 0, Tot. Refills 0, Maintenance, 08/17/20 15:28:00 EDT, Route to Pharmacy Electronically, [facility] #[id number], 168, cm, 07/17/20 14:04:00EST, Height Start Date: [...] 3 Refills, Maintenance, 09/08/20 16:38:00 EDT, Tablet, [facility] #[id number], Partial fill upon patient request if the [...] 07/18/20 14:07:00 EST, Route to Pharmacy Electronically, [facility] #[id number], 168, cm, 07/17/20 14:04:00 EST, Height Start Date: 07/18/20 Status: Ordered lamotrigine 25 mg oral tablet 25 mg, 1, tablet, By Mouth, 2 times a day, # 180 tablet, Refills 1, Tot. Refills 1, Maintenance, 08/21/20 16:55:00 EDT, Route to Pharmacy Electronically, [facility] #[id number], 168, cm, 04/18/20 10:07:00 EST, Height Start Date: 08/21/20 Stop Date: 02/17/21 Status: Ordered lisinopril 20 mg oral tablet 40 mg, 2, tablet, By Mouth, Daily, new dose, # 180 tablet, Refills 1, Tot. Refills 1, Maintenance, 09/08/19 15:55:00 EDT, Route to Pharmacy Electronically, [facility], new dose, 168, cm, 08/16/19 15:58:00 EDT, Height Start Date: 06/13/17 Stop Date: 03/06/20 Status: Ordered metFORMIN 1000 mg oral tablet 1 tablet = 1,000 mg, By Mouth, 2 times a day, with meals, # 180 tablet, 1 Refills, Maintenance, 03/06/20 15:49:00 EDT, Tablet, [facility], 168, cm, 12/06/19 13:53:00 EDT, Height [...] Refills, Maintenance, 08/17/20 15:28:00 EDT, EC Capsule, [facility] #[id number], 168, cm, 07/17/20 14:04:00 EST, Height Start [...] 0 Refills, Maintenance, 08/29/20 8:03:00 EDT, Tablet, [facility] #[id number], 09/06/20, 168, cm, 07/17/20 14:04:00 EST, Height [...] polyps(Confirmed) 18 Active Inguinal hernia left(Confirmed) Active retirement current use of opi ate [...] week 19care ploan reviewed 20comm 2 21PHQ9;2. [place] 4, 22had surgery 2011 23sx pending 24had sx 25seeing ENT 26surgery 1991 27MRI 2006 28possible ITP 29monitor 30Tubular adenoma 2015 Procedures Procedure Date Related Diagnosis Body Site Status Computed tomography, abdomen ; without contrast material 1 07/16/11 Completed Radiologic examination, ches t, 2 views, frontal and lateral; 2 07/16/11 Completed 1 Impression: 1. No evidence of nephrolithiasis, hydronephrosis, perinephric [...]
--- OUTSIDE RECORDS SUMMARY | 2022-12-09 11:33 | XMS_ITS | Continuity of Care Document ---
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 Name Role Phone Leticia Foster NP Primary Care Physician En[place] [facility] [place] Date(s): 06/21/22 - 06/28/22 [facility] Adult [address] [place] [address]- Encounter Diagnosis DM (diabetes mellitus), type 2 with peripheral vascular complications(Discharge Diagnosis) - 06/21/22 Diabetes mellitus with renal manifestation(Discharge Diagnosis) - 06/21/22 Benign Essential Hypertension(Discharge Diagnosis) - 06/21/22 Essential familial hyperlipidemia(Discharge Diagnosis) - 06/21/22 ASHD cath September 2020 abnormal ef 35% see report(Discharge Diagnosis) - 06/21/22 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%(Discharge Diagnosis) - 06/21/22 Vitamin D deficiency(Discharge Diagnosis) - 06/21/22 Ectatic aorta(Discharge Diagnosis) - 06/21/22 Erosive esophagitis(Discharge Diagnosis) - 06/21/22 Chronic pancreatitis(Discharge Diagnosis) - 06/21/22 Spinal stenosis of lumbar region(Discharge Diagnosis) - 06/21/22 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(Discharge Diagnosis) - 06/21/22 Attending Physician: Leticia Foster NP Allergies, Adverse [...] inactivated 6 08/01/10 Gi radha SARS-CoV-2 mRNA ([id number]) vax 7 06/29/21 Given SARS-CoV-2 (COVID-19) mRNA [...] Vaccine (oldterm) 15 03/11/06 Given 1Result Comment: [facility]-[id number] 2Result Comment: [facility]: [id number] 3Result Comment: [02/28/2017] HD [facility]: [id number] [facility] 5Admin Note: VIS 12/18/2010 6Admin Note: VIS given 01/02/10 7Result Comment: [facility]-[id number] 8Admin Note: VIS 9Admin Note: VIS-GIVEN 10Admin [...] 0 Refills, Maintenance, 06/03/22 11:01:00 EST, Tablet, [facility] #[id number], Partial fill upon patient request if the [...] tablet, 1 Refills, Maintenance, 01/22/22 12:14:00 EDT, [email or web address] #[id number], 168, cm, 12/26/21 15:45:00 EDT, Height, 88.5, kg, 11/04/21 16:51:00 EDT, Dry Weight Start Date: 01/22/22 Status: Ordered clopidogrel 75 mg oral tablet 75 mg, 1, tablet, By Mouth, Daily, Continue medication through 09/2021 unless otherwise instructed.,# 90 tablet, Refills 3, Tot. Refills 3, Maintenance, 12/28/20 9:56:00 EDT, Route to Pharmacy Electronically, [email or web address] #[id number], Partial fill... Start Date: 12/28/20 Status: Ordered Coreg 6.25 mg oral tablet 6.25 mg, 1, tablet, By Mouth, 2 times a day, # 60 tablet, Refills 0, Tot. Refills 0, Maintenance, 04/08/22 15:17:00 EST, Route to Pharmacy Electronically, [facility], Partial fill upon patient request if the prescription is for a schedul... Start Date: 04/08/22 Status: Ordered Farxiga 10 mg oral tablet 1 tablet = 10 mg, By Mouth, Daily, Increased strength, # 30 tablet, 0 Refills, Maintenance, 01/16/22 9:53:00 EDT, Tablet, [facility] #[id number], Increased strength, 168, cm, 12/26/21 15:45:00 EDT, [...] 05/02/22 13:11:00 EST, Route to Pharmacy Electronically, [email or web address] #[id number], Partial fill upon patient request if the prescription is for a schedule... Start Date: 05/02/22 Stop Date: 10/29/22 Status: Ordered lamotrigine 25 mg oral tablet 25 mg, 1, tablet, By Mouth, 2 times a day, # 180 tablet, Refills 1, Tot. Refills 1, Maintenance, 01/22/22 12:14:00 EDT, Route to Pharmacy Electronically, [facility] #[id number], 168, cm, 12/26/21 15:45:00 EDT, Height, 88.5, kg, 11/04/21 16:51:00... Start Date: 01/22/22 Status: Ordered lisinopril 5 mg oral tablet 5 mg, 1, tablet, By Mouth, Daily, # 90 tablet, Refills 3, Tot. Refills 3, Maintenance, 03/10/22 22:37:00 EDT, Route to Pharmacy Electronically, [facility] #[id number], Partial fill upon patient request if the prescription is for a schedule II opi... Start Date: 03/10/22 Status: Ordered nitroglycerin 0.3 mg sublingual tablet 1 tablet = 0.3 mg, Sublingual, Every 5 minutes, PRN as needed for chest pain, not to exceed 3 doses/15 min--if pain persists, seek medical attention, # 100 tablet, 0 Refills, Maintenance, 12/04/20 10:05:00 EDT, Tablet, [facility] #[id number], Par... Start Date: 12/04/20 Status: Ordered oxyCODONE 10 mg oral tablet 1 tablet = 10 mg, By Mouth, Every 4 hours, PRN as needed for pain, chronic back pain, # 168 tablet,0 Refills, Maintenance, 05/29/22 20:21:00 EST, Tablet, [facility] #[id number], Partial fill upon patient request if the [...] Confirmed Active Ischemic cardiomyopathy Confirmed 10/20/20 Active alf current use of opiate analgesic 16, 17, [...] 22 Confirmed Active Tubular adenoma of colon 2015/ declines another colo;2020 Confirmed Active Vitamin D deficiency Confirmed Active 1per urology due BPH 2per CT scan 3no showurology 4bx dec 2012 5fev1 89% 6colonoscopy 2015,mild 7refer teaching 8neg bx 9BIOPSY PLANNED 10DR anish addressing 11had viagra past 12chronic pain;contract refuses epidurals had bad experience 13epworth 4;had polyp sx 14intol;erant CPAP;refer ENT 15AHI 39.8 CPAP 15cm 16care ploan reviewed 17comm 2 18PHQ9;2. [place] 4, 19surgery 1991 20MRI 2006 21possible ITP monitor 23Tubular adenoma 2014 Diagnosis Diagnosis Type Effective Dates Health Status Clinical Service Informant DM (diabetes mellitus), type 2 with peripheral vascular complications Discharge Diagnosis 06/21/22 Diabetes mellitus with renal manifestation Discharge Diagnosis 06/21/22 Benign Essential Hypertension Discharge Diagnosis 06/21/22 Essential familial hyperlipidemia Discharge Diagnosis 06/21/22 ASHD cath September 2020 abnormal ef 35% see report Discharge Diagnosis 06/21/22 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% Discharge Diagnosis 06/21/22 Vitamin D deficiency Discharge Diagnosis 06/21/22 Ectatic aorta Discharge Diagnosis 06/21/22 Erosive esophagitis Discharge Diagnosis 06/21/22 Chronic pancreatitis Discharge Diagnosis 06/21/22 Spinal stenosis of lumbar region Discharge Diagnosis 06/21/22 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 no mass lesion is seen at the ampulla. Nonspecific chronic inflammatory changes of the pancreas, findings suggestive of early chronic pancreatitis. Two, 3 to 4 mm anechoic 1 06/07/22 Completed 1Enormous duodenal diverticulum on the medial wall of second portion. This is likely causing the abnormal imaging seen on recent MRI. There is food debris in the diverticulum that obscures our abilityto see the major papilla. That said, on EUS, no mass lesion is seen at the ampulla. PD and CBD taper appropriately at the ampullary region. Nonspecific chronic inflammatory changes of the pancreas, findings suggestive of early chronic pancreatitis. Two, 3 to 4 mm anechoic cysts in the head of the pancreas.. These appear to communicate with the PD. 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 Small, 1 to 2 mm LA grade A erosive esophagitis. Hiatal hernia, 4 cm Likely squamous papilloma, 2 3 mm in the esophagus. Removed with biopsy forceps Vital Signs Most recent to oldest [Reference Range]: 1 Height 167.6 cm (06/21/22 12:43 PM) Weight 76.1 kg (06/21/22 12:43 PM) Oxygen Saturation [94-100 %] 98 % (06/21/22 12:43 PM) Pulse Rate [55-90 bpm] 86 bpm (06/21/22 12:43 PM) Body Mass Index [18.5-24.99 kg/m2] 27.09 kg/m2 *H* (06/21/22 12:43 PM) Blood Pressure [90-138/55-84 mm Hg] 128/ 74mm Hg (06/21/22 12:43 PM) Respiratory Rate [16-30 br/min] 16 br/mi n (06/21/22 12:43 PM) Temperature [96.8-100.4 DegF] 97.7 DegF (06/21/22 12:43 PM) Mode of Delivery (Oxygen) Room air (06/21/22 12:43 PM) Blood pressure sites Arm, left (06/21/22 12:43 PM) Temperature Route Oral (06/21/22 12:43 PM) Weight Obtained Via Standing scale (06/21/22 12:43 PM) Social History Social History Type Response Smoking Status Former smoker; Tobac co use times per day: smoked < 1/2 PPD; Started at age: 18; Stopped at age: 65; entered on: 12/23/13 Sex Note * Scarlet Marques: PERFORM, SIGN, VERIFY Event Display: Patient Education/Instruction Authored Date: [id number] [facility] *[facility] So Anthony Dangelo Clinical Summary Name OSCAR MURRAY Age 77 Years 1945 PCP Leticia Foster NP PCP [facility]# [phone] Visit Date 06/21/2022 12:39:00 Additional Instructions: Scheduled Appointments?? Future Appointments ?No Future Appointments Scheduled Follow-Up Instructions ?? With: Address: When: Leticia Foster NP Comments: in 3-4 months Diagnosis Chronic obstructive pulmonary disease, unspecified; Type 2 diabetes mellitus with other diabetic kidney complication; Type 2 diabetes mellitus without complications; Essential (primary) hypertension;Other hyperlipidemia; Atherosclerotic heart disease of [place] coronary artery without angina pectoris Medications: Please continue your medications until treatment [...] for 30 Days. Refills: 5. Next Dose: Lamotrigine (lamotrigine 25 mg oral [...] chronic back pain. Refills: 0. Next Dose: Pantoprazole (pantoprazole 40 mg oral delayed release tablet) 1 tab(s) Oral Daily. Refills: 2. Next Dose: Allergy Info:?? Duloxetine Medications Given This Visit Future Orders ?Microalbumin Urine? Order Date:06/21/22?- Complete on or after?06/21/22 ?Amphetamine Urine Screen? Order Date:06/21/22?- Complete on or after?06/21/22 ?Benzodiazepine Urine Screen? Order Date:06/21/22?- Complete on or after?06/21/22 ?Barbiturate Urine Screen? Order Date:06/21/22?- Complete on or after?06/21/22 ?Methadone Urine? Order Date:06/21/22?- Complete on or after?06/21/22 ?Opiate Screen Urine? Order Date:06/21/22?- Complete on or after?06/21/22 ?PCP Urine? Order Date:06/21/22?- Complete on or after?06/21/22 ?Ethanol Urine? Order Date:06/21/22?- Complete on or after?06/21/22 ?Oxycodone Screen Urine? Order Date:06/21/22?- Complete on or after?06/21/22 ?Fentanyl Screen w/conf, Urine Toxicology? Order Date:06/21/22?- Complete on or after?06/21/22 ?Cocaine Urine Screen? Order Date:06/21/22?- Complete on or after?06/21/22 Vital Signs Height 167.6 cm Weight 76.1 kg BMI 27.09 kg/m2 Blood Pressure 128 mm Hg/74 mm Hg Temperature 97.7 DegF Pulse Rate 86 bpm Respiratory Rate 16 br/min 02 Sat Mode of Delivery 98 %/Room air You can now view a summary of your hospital visit from the comfort of your home through a free online portal called [employer]. [employer] is a website that allows you to securely view your medical information including discharge summary, medications and follow-up visits. ??You can alsosend a secure electronic message to your doctor???s office to request appointments, renew medications or just ask a question. You can enroll at [email or web address] or register during your next office [...] primary care provider, you may find a [facility] provider by calling [facility] [employer] Link at [phone]. For information about the plan of care [...] Care Team Personnel Name: Philomena Castillo Position: [facility] RN Supv Member Role: Primary Care Nurse Name: Leticia Foster NP Position: [facility] PCO Associate Professional Member Role: PCP Address: Address: [address] [place], [place] - Name: Namita Barajas RN Position: S RN Member Role: Primary Care Nurse Name: Tasha Back RN Position: [facility] RN Member Role: Primary Care Nurse Name: Jenny Bustillos RN Position: [facility] RN Member Role: Primary Care Nurse Name: Margarita Serrano RN Position: [facility] RN Member Role: Primary Care Nurse Name: Delmis RNDevin Position: [facility] RN Member Role: Primary Care Nurse Name: Betsy Millan RN Position: [facility] RN Member Role: Primary Care Nurse Name: Peggy Jansen RN Position: [facility] RN Member Role: Primary Care Nurse Name: Cate Pabon RN Position: [facility] PCO RN Member Role: Primary Care Nurse Name: Janette Jones RN Position: [facility] RN Member Role: Primary Care Nurse Name: Vianney Mcneill RN Position: [facility] RN Member Role: Primary Care Nurse Name: Cindy Evans LPN Position: [facility] RN Member Role: Primary Care Nurse Care Team Related Persons Name: INGE MURRAY Address: home [address] [place], [place] Name: NIK BARTON Address: [place] [address]
--- OUTSIDE RECORDS SUMMARY | 2022-12-09 11:33 | XMS_ITS | Continuity of Care Document ---
Author Name Unknown Organization [facility] Alessandro [facility] [place] lt Address [address] [place] [address]- Care Team Providers Care Professor Of Languages Name Role Phone Kilo Smith MD Primary Care Physician [phone] Encounter [facility] [place] Date(s): 10/10/21 - 10/17/21 [facility] Alessandro Cruz Adult [address] [place] [address]- Encounter Diagnosis Failed back syndrome sx 1991(Discharge Diagnosis) - 10/09/21 nursing home current use of opiate analgesic(Discharge Diagnosis) - 10/09/21 H/O lumbar discectomy 1991(Discharge Diagnosis) - 10/09/21 Attending Physician: Kilo Smith MD Allergies, Adverse Reactions, Alerts Substance Reaction Severity Status Duloxetine 1 rash Active 1GI Immunizations Given and Recorded Vaccine Date Status Refusal Reason SARS-CoV-2 mRNA (wiicajm-sdrp-dppfe) vax 1 06/29/21 Given influenza virus vaccine, [...] Vaccine (oldterm) 14 03/11/06 Given 1Result Comment: [facility]-[id number] 2Result Comment: [facility]: [id number] 3Result Comment: [02/28/2017] HD [facility]: [id number] 4[facility] 5Admin Note: VIS 12/18/2010 [...] 0 Refills, Maintenance, 07/17/21 12:08:00 EST, Tablet, [facility] #[id number], Partial fill upon patient request if the [...] tablet, 3 Refills, Maintenance, 02/05/21 8:58:00 EDT, [facility] #[id number], 168, cm, 01/30/21 11:10:00 EDT, Height, 72.7, kg, 10/12/20 9:18:00 EDT, Dry Weight Start Date: 02/05/21 Status: Ordered baclofen 10 mg oral tablet 0.5, tablet, By Mouth, 3 times a day, # 45 tablet, Refills 0, Tot. Refills 0, 08/14/21 13:16:00 EDT, Route to Pharmacy Electronically, [facility] #[id number], 168, cm, 08/01/21 9:15:00 EST, Height, 72.7, kg, 10/12/20 9:18:00 EDT, Dry Weight Start Date: 08/14/21 Status: Ordered clopidogrel 75 mg oral tablet 75 mg, 1, tablet, By Mouth, Daily, Continue medication through 09/2021 unless otherwise instructed.,# 90 tablet, Refills 3, Tot. Refills 3, Maintenance, 12/28/20 9:56:00 EDT, Route to Pharmacy Electronically, [facility] #[id number], Partial fill... Start Date: 12/28/20 Status: Ordered Coreg 3.125 mg oral tablet 3.125 mg, 1, tablet, By Mouth, 2 times a day, # 60 tablet, Refills 11, Tot. Refills 11, Maintenance, 08/01/21 9:34:00 EST, Route to Pharmacy Electronically, [facility] #[id number], Partial fill upon patient request if the prescription is for a sc... Start Date: 08/01/21 Stop Date: 07/27/22 Status: Ordered docusate sodium 100 mg oral capsule 100 mg, 1, capsule, By Mouth, 2 times a day, # 60 capsule, Refills 6, Tot. Refills 6, Maintenance, 01/03/21 8:19:00 EDT, Route to Pharmacy Electronically, [facility] #[id number], Partial fill upon patient request if the prescription is for a sche... Start Date: 01/03/21 Status: Ordered ezetimibe 10 mg oral tablet 1 tablet = 10 mg, By Mouth, Daily, take with atorvastatin, # 30 tablet, 11 Refills, Maintenance, 12/03/20 16:45:00 EDT, Tablet, [facility] #[id number], Partial fill upon patient request if the prescription is for a schedule II opioid drug., 168,... Start Date: 12/03/20 Status: Ordered Farxiga 5 mg oral tablet 1 tablet = 5 mg, By Mouth, Daily, # 30 tablet, 6 Refills, Maintenance, 07/06/21 13:16:00 EST, Tablet, [facility] #[id number], Partial fill upon patient request if the [...] 11 Refills, Maintenance, 12/04/20 9:56:00 EDT, Powder, [facility] #[id number], Partial fill upon patient request if the prescription i... Start Date: 12/04/20 Status: Ordered isosorbide mononitrate 30 mg oral tablet, extended release 1 tablet, By Mouth, Daily in AM, # 30 tablet, 0 Refills, [facility] #[id number], 168, cm, 01/10/21 10:40:00 EDT, Height, 72.7, kg, 10/12/20 9:18:00 EDT, Dry Weight Start Date: 01/28/21 Status: Ordered lamotrigine 25 mg oral tablet 25 mg, 1, tablet, By Mouth, 2 times a day, # 180 tablet, Refills 1, Tot. Refills 1, Maintenance, 07/11/21 13:45:00 EST, Route to Pharmacy Electronically, [facility] #[id number], 168, cm, 07/06/21 13:13:00 EST, Height, 72.7, [...] 02/21/21 16:10:00 EDT, Route to Pharmacy Electronically, [facility] #[id number], Partial fill upon patient request if the prescription is for a schedule II opi... Start Date: 02/21/21 Status: Ordered nitroglycerin 0.3 mg sublingual tablet 1 tablet = 0.3 mg, Sublingual, Every 5 minutes, PRN as needed for chest pain, not to exceed 3 doses/15 min--if pain persists, seek medical attention, # 100 tablet, 0 Refills, Maintenance, 12/04/20 10:05:00 EDT, Tablet, [facility] #[id number], Par... Start Date: 12/04/20 Status: Ordered omeprazole 20 mg oral enteric coated capsule 1 capsule = 20 mg, By Mouth, Daily, before breakfast, # 90 capsule, 0 Refills, Maintenance, 07/11/21 9:03:00 EST, EC Capsule, [facility] #[id number], 168, cm, 07/06/21 13:13:00 EST, Height, 72.7, kg, 10/12/20 9:18:00 EDT, Dry Weight Start Date: 07/11/21 Stop Date: 10/09/21 Status: Ordered oxyCODONE 10 mg oral tablet 1 tablet = 10 mg, By Mouth, Every 4 hours, PRN as needed for pain, chronic back pain, # 168 tablet,0 Refills, Maintenance, 10/09/21 9:48:00 EDT, Tablet, [facility] #[id number], Partial fill upon patient request if the prescription is for a sched... Start Date: 10/09/21 Status: Ordered Vitamin C 500 mg oral [...] ef 35%/Echo Sept 2020 40-45%(Confirmed) 10/20/20 Active nursing home current use of [...] week 19care ploan reviewed 20comm 2 21PHQ9;2. [place] 4, 22had surgery 2011 23sx pending 24had sx 25seeing ENT 26surgery 1991 27MRI 2006 28possible ITP 29monitor 30Tubular adenoma 2014 Diagnosis Diagnosis Type Effective Dates Health Status Clinical Service Informant Failed back syndrome sx 1991 Discharge Diagnosis 10/09/21 nursing home current use of opiate analgesic Discharge Diagnosis 10/09/21 H/O lumbar discectomy 1991 Discharge Diagnosis 10/09/21 Vital Signs Most recent to oldest [Reference Range]: 1 2 Height 168 cm (10/10/21 2:08 PM) 168 cm (10/10/21 1:55 PM) Weight 72.3 kg (10/10/21 1:55 PM) Oxygen Saturation [94-100 %] 98 % (10/10/21 1:55 PM) Pulse Rate [55-90 bpm] 80 bpm (10/10/21 1:55 PM) Body Mass Index [18.5-24.99] 25.62 *H* (10/10/21 1:55 PM) Blood Pressure [90-138/55-84 mm Hg] 118/ 70mm Hg (10/10/21 2:08 PM) 151/77mm Hg *H* (10/10/21 1:55 PM) Respiratory Rate [16-30 br/min] 16 br/mi n (10/10/21 1:55 PM) Temperature [96.8-100.4 DegF] 97.8 DegF (10/10/21 1:55 PM) Mode of Delivery (Oxygen) Room air (10/10/21 1:55 PM) Blood pressure sites Arm, left (10/10/21 2:08 PM) Arm, left (10/10/21 1:55 PM) Temperature Route Oral (10/10/21 1:55 PM) Weight Obtained Via Standing scale (5/18/22 1:55 PM) Social History Social History Type Response Smoking Status Former smoker; Tobac co use times per day: smoked < 1/2 PPD; Started at age: 18; Stopped at age: 65; entered on: 12/23/13 Sex
--- OUTSIDE RECORDS SUMMARY | 2022-12-09 11:33 | XMS_ITS | Continuity of Care Document ---
Author Name Unknown Organization [facility] [place] lt Address [address] [place] [address]- Care Team Providers Care Marketing Underwriter Name Role Phone Kristin Leticia SIMS Primary Care Physician Encounter [facility] Date(s): 05/03/22 - 06/02/22 [facility] Adult [address] [place] [address]- Allergies, Adverse Reactions, Alerts Substance Reaction Severity [...] inactivated 6 08/01/10 Gi radha SARS-CoV-2 mRNA ([id number]) vax 7 06/29/21 Given SARS-CoV-2 (COVID-19) mRNA [...] Vaccine (oldterm) 15 03/11/06 Given 1Result Comment: [facility]-[id number] 2Result Comment: [facility]: [id number] 3Result Comment: [02/28/2017] HD [facility]: 36322-127-05 [facility] 5Admin Note: VIS 12/18/2010 6Admin Note: VIS given 01/02/10 7Result Comment: [facility]-[id number] 8Admin Note: VIS 9Admin Note: VIS-GIVEN 10Admin [...] 0 Refills, Maintenance, 07/17/21 12:08:00 EST, Tablet, [facility] #[id number], Partial fill upon patient request if the [...] tablet, 1 Refills, Maintenance, 01/22/22 12:14:00 EDT, [facility] #[id number], 168, cm, 12/26/21 15:45:00 EDT, Height, 88.5, kg, 11/04/21 16:51:00 EDT, Dry Weight Start Date: 01/22/22 Status: Ordered baclofen 10 mg oral tablet 0.5, tablet, By Mouth, 3 times a day, # 45 tablet, Refills 0, Tot. Refills 0, 08/14/21 13:16:00 EDT, Route to Pharmacy Electronically, [facility] #[id number], 168, cm, 08/01/21 9:15:00 EST, Height, 72.7, kg, 10/12/20 9:18:00 EDT, Dry Weight Start Date: 08/14/21 Status: Ordered clopidogrel 75 mg oral tablet 75 mg, 1, tablet, By Mouth, Daily, Continue medication through 09/2021 unless otherwise instructed.,# 90 tablet, Refills 3, Tot. Refills 3, Maintenance, 12/28/20 9:56:00 EDT, Route to Pharmacy Electronically, [facility] #[id number], Partial fill... Start Date: 12/28/20 Status: Ordered Coreg 6.25 mg oral tablet 6.25 mg, 1, tablet, By Mouth, 2 times a day, # 60 tablet, Refills 0, Tot. Refills 0, Maintenance, 04/08/22 15:17:00 EST, Route to Pharmacy Electronically, [facility], Partial fill upon patient request if the prescription is for a schedul... Start Date: 04/08/22 Status: Ordered Farxiga 10 mg oral tablet 1 tablet = 10 mg, By Mouth, Daily, Increased strength, # 30 tablet, 0 Refills, Maintenance, 01/16/22 9:53:00 EDT, Tablet, [facility] #[id number], Increased strength, 168, cm, 12/26/21 15:45:00 EDT, [...] 05/02/22 13:11:00 EST, Route to Pharmacy Electronically, [facility] #[id number], Partial fill upon patient request if the prescription is for a schedule... Start Date: 05/02/22 Stop Date: 10/29/22 Status: Ordered lamotrigine 25 mg oral tablet 25 mg, 1, tablet, By Mouth, 2 times a day, # 180 tablet, Refills 1, Tot. Refills 1, Maintenance, 01/22/22 12:14:00 EDT, Route to Pharmacy Electronically, [facility] #[id number], 168, cm, 12/26/21 15:45:00 EDT, Height, 88.5, kg, 11/04/21 16:51:00... Start Date: 01/22/22 Status: Ordered lisinopril 5 mg oral tablet 5 mg, 1, tablet, By Mouth, Daily, # 90 tablet, Refills 3, Tot. Refills 3, Maintenance, 03/10/22 22:37:00 EDT, Route to Pharmacy Electronically, [facility] #[id number], Partial fill upon patient request if the prescription is for a schedule II opi... Start Date: 03/10/22 Status: Ordered nitroglycerin 0.3 mg sublingual tablet 1 tablet = 0.3 mg, Sublingual, Every 5 minutes, PRN as needed for chest pain, not to exceed 3 doses/15 min--if pain persists, seek medical attention, # 100 tablet, 0 Refills, Maintenance, 12/04/20 10:05:00 EDT, Tablet, [facility] #[id number], Par... Start Date: 12/04/20 Status: Ordered omeprazole 20 mg oral enteric coated capsule 1 capsule = 20 mg, By Mouth, Daily, in AM, # 90 capsule, 1 Refills, Maintenance, 04/09/22 11:29:00 EST, EC Capsule, [facility] #[id number], 168, cm, 04/09/22 11:04:00 EST, Height, 74, kg, 04/06/22 1:20:00 EST, Dry Weight Start Date: 04/09/22 Stop Date: 10/06/22 Status: Ordered oxyCODONE 10 mg oral tablet 1 tablet = 10 mg, By Mouth, Every 4 hours, PRN as needed for pain, chronic back pain, # 168 tablet,0 Refills, Maintenance, 05/29/22 20:21:00 EST, Tablet, [facility] #[id number], Partial fill upon patient request if the [...] Active Ischemic cardiomyopathy Confirmed 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 [place] 4, 22had surgery 2011 23sx pending 24had sx 25seeing ENT 26surgery 1991 27MRI 2006 28possible ITP 29monitor 30Tubular adenoma 2014 Social History Social History Type Response Smoking Status Former smoker; Tobac co use times per day: smoked < 1/2 PPD; Started at age: 18; Stopped at age: 65; entered on: 12/23/13 Sex Patient Care team information Care Team Personnel Name: Philomena Castillo Position: [facility] RN Supv Member Role: Primary Care Nurse Name: Leticia Foster NP Position: [facility] PCO Associate Professional Member Role: PCP Address: Address: [address] [place] [id number] Name: Namita Barajas RN Position: [facility] RN Member Role: Primary Care Nurse Name: Tasha Back RN Position: S RN Member Role: Primary Care Nurse Name: Jenny Bustillos RN Position: [facility] RN Member Role: Primary Care Nurse Name: Margarita Serrano RN Position: S RN Member Role: Primary Care Nurse Name: Devin Benites RN Position: [facility] RN Member Role: Primary Care Nurse Name: Betsy Millan RN Position: [facility] RN Member Role: Primary Care Nurse Name: Peggy Jansen RN Position: [facility] RN Member Role: Primary Care Nurse Name: Cate Pabon RN Position: [facility] PCO RN Member Role: Primary Care Nurse Name: Janette Jones RN Position: [facility] RN Member Role: Primary Care Nurse Name: Vianney Mcneill RN Position: [facility] RN Member Role: Primary Care Nurse Name: Cindy Evans LPN Position: S RN Member Role: Primary Care Nurse Care Team Related Persons Name: INGE MURRAY Address: home [address] [place] [id number] Name: NIK BARTON Address: [place] [address]
[2022-12-09 11:42] LABS: Mean Platelet Volume 12.5 fL (9.4-12.4); Platelet Count 97 X10*3/uL (160-400)
[2022-12-09 12:10] LABS: Lactic Acid 1.2 mmol/L (0.5-2.0)
--- NOTE | 2022-12-09 12:10 | PHA.MEDREC ---
Pharmacy Consult ? Medication Reconciliation Pharmacy has completed the medication reconciliation. Patient brought in all medications.
[2022-12-09 12:14] LABS: Anion Gap 13 (12-20); Blood Urea Nitrogen 18 mg/dL (9-16); Calcium 9.4 mg/dL (8.4-10.2); Carbon Dioxide 25 mmol/L (22-29); Chloride 103 mmol/L (96-108); Creatinine Clr Calc Pharmacy 59.1; Estimated Glomerular Filt Rate > 60; Glucose Random 150 mg/dL (60-115); Potassium 4.1 mmol/L (3.3-5.1); Sodium 137 mmol/L (135-145)
[2022-12-09] MEDS: Albuterol Sulfate 7.5 MG, Albuterol Sulfate (0.083%) 2.5 MG 10 MG INHALE ×2 (12:17→14:01)
[2022-12-09 12:35] LABS: IDNOW Serial# 08D9AD1C; Influenza A Negative (Negative); Influenza B2 Negative (Negative)
[2022-12-09] MEDS: methylPREDNISolone Sod Succ 125 MG/2 ML VIAL IVPUSH (12:40)
--- NOTE | 2022-12-09 13:35 | ED.SOB ---
HPI - SOB/Dyspnea General Chief Complaint: Dyspnea Stated Complaint: diff breathing on CPAP Time Seen by Provider: 12/09/22 10:44 Source: patient and EMS Mode of arrival: EMS Limitations: no limitations History of Present Illness HPI Narrative: 77-year-old male with history of hypertension, asthma presents with shortness of breath. Symptoms started yesterday. The symptoms are severe. There is no clear relieving features. Symptoms are exacerbated by any exertion. There is no orthopnea, PND, lower extremity edema. Patient has had no fevers or chills. He has had a cough that is been nonproductive. He has been taking his albuterol at home with no significant improvement in symptoms. Patient denies any chest pain but does feel particularly tight throughout his whole chest and back. That tightness does not radiate. Worse with trying to breathe and deep. Patient denies any recent long distance travel, surgeries, lower extremity edema, history of PE or DVT. Related Data Home Medications Medication Instructions Recorded Confirmed albuterol sulfate 90 mcg/actuation 2 puff inhalation Q4H PRN 12/09/22 12/09/22 aerosol inhaler (Ventolin HFA) Shortness Of Breath Or Wheezing amlodipine 5 mg tablet 5 mg PO DAILY 12/09/22 12/09/22 ascorbic acid (vitamin C) 500 mg 500 mg PO DAILY 12/09/22 12/09/22 tablet (Vitamin C) atorvastatin 80 mg tablet 80 mg PO DAILY 12/09/22 12/09/22 carvedilol 6.25 mg tablet 6.25 mg PO BID 12/09/22 12/09/22 cholecalciferol (vitamin D3) 50 50 mcg PO DAILY 12/09/22 12/09/22 mcg (2,000 unit) capsule ezetimibe 10 mg tablet 10 mg PO DAILY 12/09/22 12/09/22 lamotrigine 25 mg tablet 25 mg PO BID 12/09/22 12/09/22 lisinopril 5 mg tablet 5 mg PO DAILY 12/09/22 12/09/22 metformin 500 mg tablet 500 mg PO BID 12/09/22 12/09/22 oxycodone 10 mg tablet 10 mg PO Q4H PRN pain 12/09/22 12/09/22 pantoprazole 40 mg tablet,delayed 40 mg PO DAILY 12/09/22 12/09/22 release Allergies Allergy/AdvReac Type Severity Reaction Status Date / Time No Known Allergies Allergy Verified 12/09/22 10:45 Review of Systems Review of Systems: CONSTITUTIONAL: Denies weight loss, fever and chills. HEENT: Denies changes in vision and hearing. RESPIRATORY: + SOB and cough. CV: Denies palpitations no CP. GI: Denies abdominal pain, nausea, vomiting and diarrhea. : Denies dysuria and urinary frequency. MSK: Denies myalgia and joint pain. SKIN: Denies rash and pruritus. NEUROLOGICAL: Denies headache and syncope. PSYCHIATRIC: Denies recent changes in mood. Denies anxiety and depression. All other ROS are negative unless in HPI PENDING SALE TO [facility] Social History Social History Advance Directives: No Advance Directives Information Provided: No Physical Exam Vital Signs: Vital Signs: Last Vital Signs Temp 97.5 F 12/09/22 14:27 Pulse 80 12/09/22 14:27 Resp 19 12/09/22 14:27 BP 103/58 L 12/09/22 14:27 Pulse Ox 97 12/09/22 14:27 O2 Del Method High Flow Nasal C annula 12/09/22 14:27 O2 Flow Rate 50 12/09/22 14:27 FiO2 35 12/09/22 14:27 BMI result Body Mass Index 23.5 GEN: Well developed, positive for acute respiratory distress, alert, oriented HEENT: Normocephalic, atraumatic, normal external ears, nose appears normal, no oropharyngeal edema or exudates Eyes: Normal to appearance Neck: Supple, no lymphadenopathy Respiratory: Conversational dyspnea, accessory muscle use, on CPAP/BiPAP, prolonged expiration, diffuse expiratory wheezes, no crackles Cardiovascular: Regular rate and rhythm, no murmurs rubs or gallops Abdomen: Soft, nontender, nondistended, no guarding, no rebound Back: No CVA tenderness Extremities: No clubbing cyanosis or edema Neurologic: No focal neurologic deficits, cranial nerves 2-12 intact, strength is 5/5 bilaterally Skin: No rash Course Reevaluation(s) Reevaluation #1: Patient was placed on BiPAP. Still continues to have significant shortness of breath. We attempted to take him off of BiPAP but he becomes immediately dyspneic. His oxygen saturation is 97% on 2 L nasal cannula. However, he has had significant work of breathing. Patient has received a total of 20 mg of albuterol as well as 3 doses of ipratropium bromide. He has receive Solu-Medrol. Will order magnesium at this time. Antibiotics have been ordered. Patient will need to be admitted to the hospital. Patient may require ICU. Time: 13:57 Reevaluation #2: Patient now on high flow oxygen doing well. Will admit to tele. Time: 15:01 Medications Administered Generic Name Dose Route Start Last Admin Trade Name Freq PRN Reason Stop Dose Admin Magnesium Sulfate 2 gm in 50 mls @ 25 mls/hr 12/09/22 13:56 12/09/22 14:11 Magnesium Sulfate/H2o IV 12/09/22 15:55 25 mls/hr ONCE ONE Administration Discontinued Medications Generic Name Dose Route Start Last Admin Trade Name Freq PRN Reason Stop Dose Admin Albuterol Sulfate 7.5 mg/ 10 mg 12/09/22 12:08 12/09/22 12:17 Albuterol Sulfate 2.5 mg INHALE 12/09/22 12:09 10 mg ONCE ONE Administration Albuterol Sulfate 7.5 mg/ 10 mg 12/09/22 13:53 12/09/22 14:01 Albuterol Sulfate 2.5 mg INHALE 12/09/22 13:54 10 mg ONCE ONE Administration Albuterol Sulfate 7.5 mg/ 0 mg 12/09/22 10:45 12/09/22 10:53 Albuterol/Ipratropium 3 ml INHALE 12/09/22 10:46 10 each ONCE ONE Administration Ceftriaxone Sodium 1 gm/ 50 mls @ 100 mls/hr 12/09/22 13:34 12/09/22 13:52 Sodium Chloride IV 12/09/22 14:03 100 mls/hr ONCE ONE Administration Methylprednisolone Sodium Succinate 125 mg 12/09/22 11:53 12/09/22 12:40 Methylprednisolone Sod Succ 125 Mg/2 Ml Vial IVPUSH 12/09/22 11:54 125 mg ONCE ONE Administration Medical Decision Making Medical Decision Making MDM Narrative: 77-year-old male with history of asthma presents with acute severe dyspnea. Patient is currently on CPAP/BiPAP. He has prolonged expiration, expiratory wheezes. He is clearly dyspneic with accessory muscle use. He has not been intubated in the past. Differential diagnosis includes asthma exacerbation, COPD exacerbation, pneumonia, CHF, pulmonary embolus. Patient received no nebulizers, steroids. Will obtain a chest x-ray to rule out CHF or other acute respiratory issues. Will order routine laboratory testing including a CBC to check for leukocytosis or anemia. Will check for influenza and COVID. Will order 2 sets of blood cultures although patient is afebrile. Patient will likely benefit from IV steroids and will order Solu-Medrol 125 mg. Will order DuoNeb x3. Patient may require magnesium sulfate. Will have frequent re-evaluations. Differential Diagnosis Differential Diagnoses: The differential diagnosis associated with the presentation includes (See above) Admission/Observation Consideration of admission/observation: Escalation of care including admission/observation considered Consult Healthcare Provider Management of the patient was discussed with: Fire Pilot (Respiratory therapy) Lab Data MDM Lab Attestation statement: I reviewed the patient's lab results. 12/09/22 10:56 12/09/22 11:44 Labs: Lab Results 12/09/22 12/09/22 12/09/22 Range/Units 10:56 10:56 10:56 WBC 5.0 (4.8-10.8) X10*3/uL RBC 3.86 L (4.60-5.80) X10*6/uL Hgb 11.5 L (14.0-18.0) g/dl Hct 34.8 L (42.0-52.0) % MCV 90.2 (80.0-98.0) fL MCH 29.8 (27.0-33.0) pg MCHC 33.0 (31.0-36.0) g/dl RDW 12.8 (11.0-16.0) % Plt Count 97 L (160-400) X10*3/uL MPV 12.5 H (9.4-12.4) fL Immature Gran % (Auto) 0.2 (0.0-0.4) % Neut % (Auto) 64.7 (45-73) % Lymph % (Auto) 21.0 (20-40) % Clare % (Auto) 10.1 (2-11) % Eos % (Auto) 3.4 (0-4) % Baso % (Auto) 0.6 (0-2) % Lymph # (Auto) 1.0 L (1.2-4.9) X10*3/uL Clare # (Auto) 0.5 (0.1-1.2) X10*3/uL Eos # (Auto) 0.2 (0.0-0.4) X10*3/uL Baso # (Auto) 0.0 (0.0-0.2) X10*3/uL Abs Immat Gran (auto) 0.01 (0.00-0.03) X10*3/uL Absolute Neuts (auto) 3.2 (2.0-8.3) x10*3/uL Absolute Nucleated RBC 0.000 (0.0-0.012) X10*3/uL Nucleated RBC % (auto) 0.0 (0.0-0.2) /100WBC PT 10.6 (10.0-13.1) SEC INR 0.9 (0.9-1.1) APTT 31.4 (26.0-36.4) SEC Sodium (135-145) mmol/L Potassium (3.3-5.1) mmol/L Chloride (96-108) mmol/L Carbon Dioxide (22-29) mmol/L Anion Gap (12-20) BUN (9-16) mg/dL Creatinine (0.5-1.4) mg/dL Estim Creat Clear Calc Estimated GFR Random Glucose (60-115) mg/dL Lactic Acid (0.5-2.0) mmol/L Calcium (8.4-10.2) mg/dL Troponin I High Sens 5.7 (<3.5-35.0) ng/L B-Natriuretic Peptide (<100) pg/mL Influenza Type A (JARED) (Negative) Influenza Type B (JARED) (Negative) Influenza A & B Note 12/09/22 12/09/22 12/09/22 Range/Units 10:56 10:56 11:44 WBC (4.8-10.8) X10*3/uL RBC (4.60-5.80) X10*6/uL Hgb (14.0-18.0) g/dl Hct (42.0-52.0) % MCV (80.0-98.0) fL MCH (27.0-33.0) pg MCHC (31.0-36.0) g/dl RDW (11.0-16.0) % Plt Count (160-400) X10*3/uL MPV (9.4-12.4) fL Immature Gran % (Auto) (0.0-0.4) % Neut % (Auto) (45-73) % Lymph % (Auto) (20-40) % Clare % (Auto) (2-11) % Eos % (Auto) (0-4) % Baso % (Auto) (0-2) % Lymph # (Auto) (1.2-4.9) X10*3/uL Clare # (Auto) (0.1-1.2) X10*3/uL Eos # (Auto) (0.0-0.4) X10*3/uL Baso # (Auto) (0.0-0.2) X10*3/uL Abs Immat Gran (auto) (0.00-0.03) X10*3/uL Absolute Neuts (auto) (2.0-8.3) x10*3/uL Absolute Nucleated RBC (0.0-0.012) X10*3/uL Nucleated RBC % (auto) (0.0-0.2) /100WBC PT (10.0-13.1) SEC INR (0.9-1.1) APTT (26.0-36.4) SEC Sodium 137 (135-145) mmol/L Potassium 4.1 (3.3-5.1) mmol/L Chloride 103 (96-108) mmol/L Carbon Dioxide 25 (22-29) mmol/L Anion Gap 13 (12-20) BUN 18 H (9-16) mg/dL Creatinine 0.98 (0.5-1.4) mg/dL Estim Creat Clear Calc 59.1 Estimated GFR > 60 Random Glucose 150 H (60-115) mg/dL Lactic Acid (0.5-2.0) mmol/L Calcium 9.4 D (8.4-10.2) mg/dL Troponin I High Sens (<3.5-35.0) ng/L B-Natriuretic Peptide 89 (<100) pg/mL Influenza Type A (JARED) Negative (Negative) Influenza Type B (JARED) Negative (Negative) Influenza A & B Note See Note 12/09/22 Range/Units 11:44 WBC (4.8-10.8) X10*3/uL RBC (4.60-5.80) X10*6/uL Hgb (14.0-18.0) g/dl Hct (42.0-52.0) % MCV (80.0-98.0) fL MCH (27.0-33.0) pg MCHC (31.0-36.0) g/dl RDW (11.0-16.0) % Plt Count (160-400) X10*3/uL MPV (9.4-12.4) fL Immature Gran % (Auto) (0.0-0.4) % Neut % (Auto) (45-73) % Lymph % (Auto) (20-40) % Clare % (Auto) (2-11) % Eos % (Auto) (0-4) % Baso % (Auto) (0-2) % Lymph # (Auto) (1.2-4.9) X10*3/uL Clare # (Auto) (0.1-1.2) X10*3/uL Eos # (Auto) (0.0-0.4) X10*3/uL Baso # (Auto) (0.0-0.2) X10*3/uL Abs Immat Gran (auto) (0.00-0.03) X10*3/uL Absolute Neuts (auto) (2.0-8.3) x10*3/uL Absolute Nucleated RBC (0.0-0.012) X10*3/uL Nucleated RBC % (auto) (0.0-0.2) /100WBC PT (10.0-13.1) SEC INR (0.9-1.1) APTT (26.0-36.4) SEC Sodium (135-145) mmol/L Potassium (3.3-5.1) mmol/L Chloride (96-108) mmol/L Carbon Dioxide (22-29) mmol/L Anion Gap (12-20) BUN (9-16) mg/dL Creatinine (0.5-1.4) mg/dL Estim Creat Clear Calc Estimated GFR Random Glucose (60-115) mg/dL Lactic Acid 1.2 (0.5-2.0) mmol/L Calcium (8.4-10.2) mg/dL Troponin I High Sens (<3.5-35.0) ng/L B-Natriuretic Peptide (<100) pg/mL Influenza Type A (JARED) (Negative) Influenza Type B (JARED) (Negative) Influenza A & B Note Independent Interpretation I performed an independent interpretation of an: EKG and Plain X-Ray (Chest: Possible right lower lobe infiltrate/opacification) Interpretation: Normal sinus rhythm heart rate 88, ST T wave changes in the anterior leads, new change noted. Radiology Impression Discussion of test interpretation with radiology: I have reviewed the radiologist's reading. Radiologist Impression: XR/XR chest 1V IMPRESSION: Possible small bilateral pleural effusions. ? Dictated By: Becky Pa MD Signed By: <Electronically signed by Becky Pa MD in OV> 12/09/22 1329 Independent Historian Clinical information obtained from an independent historian. History obtained from or confirmed by: EMS and Other (Daughter) Tests considered The following testing was considered but not selected: CT angio of the chest to rule out PE Prescription Management I considered prescription management with: Antibiotic Chronic Conditions Patient?s care impacted by: Hypertension Critical Care Time Critical Care Time Total Critical Care Time: 65 Attestation: Approximately 65 minutes of critical care time provided to the patient terms of direct patient care, documentation, interpretation and medical data, consultation with other providers including respiratory therapy, frequent re-evaluations, complex decision making and ruling out potentially life-threatening conditions. Discharge Plan Discharge Clinical Impression: Asthma with exacerbation Patient Disposition: Admitted As Inpatient
--- NOTE | 2022-12-09 13:43 | PC.NURSE ---
Addendum entered by Yadi Mirza 12/09/22 14:11: pt tachypneic on 2Lm respiratory at bedside pt tolerating high flow at this time Original Note: respiratory able to take pt off bipap, 2L nasal cannula at this time
[2022-12-09] MEDS: cefTRIAXone sodium 1 GM in 0.9 % Sodium Chloride 50 ML IV (13:52)
[2022-12-09] MEDS: Magnesium Sulfate/H2O 2 GM/50 ML PIGGYBACK IV (14:11)
[2022-12-09] MEDS: Azithromycin 500 MG in 0.9 % Sodium Chloride 250 ML 125 MG IV (15:07)
--- NOTE | 2022-12-09 15:40 | PC.NURSE ---
pt taken to ct scan at this time, tolerating high flow well at this time.
[2022-12-09] MEDS: iohexoL 350 MG/ML 100 ML INFUS..BTL IV (15:52)
[2022-12-09] MEDS: Aspirin 81 MG TAB.CHEW 324 MG PO (16:18)
[2022-12-09 16:30] LABS: Troponin-I High Sensitivity 6.9 ng/L (<3.5-35.0)
[2022-12-09 16:39] LABS: VBG Base Excess 1.1 mmol/L; VBG HCO3 27 mmol/L (22-26); VBG pCO2 48 mmHg; VBG pH 7.36 (7.32-7.43); VBG pO2 47 mmHg
[2022-12-09 16:52] LABS: Venous Blood Gas Refer to POC result
--- NOTE | 2022-12-09 17:27 | PM.IMHP ---
History of Present Illness Date of Service: 12/09/22 Attending physician on admission: Genevieve Oakes Chief Complaint: sob 77-year-old male with past medical history CAD post CABG, heart failure, diabetes, stroke, CKD, COPD( ex smoker quit 10 years ago-but used to smoke 2 packs/day for many years), CVA, hypertension, hyperlipidemia and chronic back pain who?presented to the ED?for shortness of breath. He says that he was doing fine until yesterday evening and then he started having short of breath and wheezing-he says that he rarely uses the albuterol, so shortness of breath progressively got worse and came to the hospital. Patient denies any chest pain or any dizziness or palpitations during this time. He has cough but nonproductive. He says that it difficult to breathe when he came hour having wheezing also somewhat, but after breathing treatments and BiPAP-he is feeling much better still, still requiring high-flow. He said he was admitted to the [facility] a month ago for question of syncope, otherwise denies any travel or any DVT or PE . Denies any new complaint of chest pain or abdominal pain or fever or chills or nausea or vomiting Denies any Rhinrrhae or ear pain or throat pain. Denies any weakness or numbness. labs imaging, ekg reviewed: WBC count: 5.0, hemoglobin 11 0.5/34.8, platelet 97. BUN 18, creatinine 0.98 COVID and influenza serologies are negative VBG: PH maintained 7.36, no CO2 retention XR/XR chest 1V:: Possible small bilateral pleural effusions. ?CT/CT angio chest PE protocol IMPRESSION: 1.? No evidence of PE. 2.? No evidence of aortic aneurysm. 3.? The lungs are clear. ekg: NSR,Anteroseptal infarct (cited on or before 23-OCT-2004) In ED: Patient received nebs, steroids, ceftriaxone and azithromycin, magnesium, initially received BiPAP-subsequently placed on high-flow oxygen. Review of Systems Review of Systems: as above. [facility] Social History Advance Directives: No Advance Directives Information Provided: No Meds Allergies Allergy/AdvReac Type Severity Reaction Status Date / Time No Known Allergies Allergy Verified 12/09/22 10:45 Active Medications: Current Medications Albuterol/Ipratropium (Albuterol/Iprat 2.5/0.5mg 3 Ml Ampul.Neb) 3 ml INHALE Q4H [facility] Amlodipine Besylate (Amlodipine Besylate 5 Mg Tablet) 5 mg PO DAILY [facility]; Protocol Ascorbic Acid (Ascorbic Acid 500 Mg Tablet) 500 mg PO DAILY [facility] Atorvastatin Calcium (Atorvastatin Calcium 80 Mg Tablet) 80 mg PO DAILY [facility] Carvedilol (Carvedilol 6.25 Mg Tablet) 6.25 mg PO BID [facility]; Protocol Ezetimibe (Ezetimibe 10 Mg Tablet) 10 mg PO DAILY [facility] Heparin Sodium (Porcine) (Heparin Sodium,Porcine 5,000 Unit/Ml Vial) 5,000 unit SUBCUT Q12H [facility] Lamotrigine (Lamotrigine 25 Mg Tablet) 25 mg PO BID [facility] Lisinopril (Lisinopril 5 Mg Tablet) 5 mg PO DAILY [facility]; Protocol Methylprednisolone Sodium Succinate (Methylprednisolone Sod Succ 40 Mg/Ml Vial) 40 mg IVPUSH Q8H [facility] Non-Formulary Medication (Pantoprazole) 40 mg PO DAILY [facility] Pharmacy Consult (Consult Rx Perform Med Rec) 1 each MISCELLANE ONCE PRN PRN Reason: Consult order Sodium Chloride (0.9 % Sodium Chloride Flush 3 Ml Syringe) 3 ml IVFLUSH QSHIFT [facility] Vitamin D (Cholecalciferol (Vitamin D3) 25 Mcg Tablet) 50 mcg PO DAILY [facility] Home Medications Medication Instructions Recorded Confirmed Last Taken Type albuterol sulfate 90 mcg/actuation 2 puff inhalation Q4H PRN 12/09/22 12/09/22 Unknown History aerosol inhaler (Ventolin HFA) Shortness Of Breath Or Wheezing amlodipine 5 mg tablet 5 mg PO DAILY 12/09/22 12/09/22 Unknown History ascorbic acid (vitamin C) 500 mg 500 mg PO DAILY 12/09/22 12/09/22 Unknown History tablet (Vitamin C) atorvastatin 80 mg tablet 80 mg PO DAILY 12/09/22 12/09/22 Unknown History carvedilol 6.25 mg tablet 6.25 mg PO BID 12/09/22 12/09/22 Unknown History cholecalciferol (vitamin D3) 50 50 mcg PO DAILY 12/09/22 12/09/22 Unknown History mcg (2,000 unit) capsule ezetimibe 10 mg tablet 10 mg PO DAILY 12/09/22 12/09/22 Unknown History lamotrigine 25 mg tablet 25 mg PO BID 12/09/22 12/09/22 Unknown History lisinopril 5 mg tablet 5 mg PO DAILY 12/09/22 12/09/22 Unknown History metformin 500 mg tablet 500 mg PO BID 12/09/22 12/09/22 Unknown History oxycodone 10 mg tablet 10 mg PO Q4H PRN pain 12/09/22 12/09/22 12/08/22 History pantoprazole 40 mg tablet,delayed 40 mg PO DAILY 12/09/22 12/09/22 Unknown History release Physical Exam Vital Signs and Narrative: Vital Signs: Last Vital Signs Temp 97.5 F 12/09/22 14:27 Pulse 80 12/09/22 14:27 Resp 18 12/09/22 15:56 BP 103/58 L 12/09/22 14:27 Pulse Ox 97 12/09/22 14:27 O2 Del Method High Flow Nasal C annula 12/09/22 14:27 O2 Flow Rate 50 12/09/22 14:27 FiO2 35 12/09/22 14:27 BMI result Body Mass Index 23.5 Appearance: Alert.? Oriented X3.? not in distress.? Eyes: Pupils equal, round and reactive to light.? Sclera nonicteric.? ENT: Pharynx normal.? Moist mucous membranes. cvs: rrr, [id number] . res: air entry dimished ,b/l expiratory wheezin abd: no rebound or guarding ,nt, bs present. ext pulses present , no cyanosis . neuro: axo3 , nonfocal. Results Labs 12/09/22 10:56 12/09/22 11:44 Labs: Laboratory Results - last 24 hr 12/09/22 12/09/22 12/09/22 10:56 10:56 10:56 MCV 90.2 MCH 29.8 MCHC 33.0 RDW 12.8 Plt Count 97 L MPV 12.5 H Immature Gran % (Auto) 0.2 Neut % (Auto) 64.7 Lymph % (Auto) 21.0 [place] % (Auto) 10.1 Eos % (Auto) 3.4 Baso % (Auto) 0.6 Lymph # (Auto) 1.0 L [place] # (Auto) 0.5 Eos # (Auto) 0.2 Baso # (Auto) 0.0 Abs Immat Gran (auto) 0.01 Absolute Neuts (auto) 3.2 Absolute Nucleated RBC 0.000 Nucleated RBC % (auto) 0.0 PT 10.6 INR 0.9 APTT 31.4 VBG pH VBG pCO2 VBG pO2 VBG HCO3 VBG O2 Saturation VBG Base Excess Anion Gap Estim Creat Clear Calc Estimated GFR Random Glucose Lactic Acid Calcium Troponin I High Sens 5.7 B-Natriuretic Peptide Influenza Type A (JARED) Influenza Type B (JARED) Influenza A & B Note 12/09/22 12/09/22 12/09/22 10:56 10:56 11:44 MCV MCH MCHC RDW Plt Count MPV Immature Gran % (Auto) Neut % (Auto) Lymph % (Auto) [place] % (Auto) Eos % (Auto) Baso % (Auto) Lymph # (Auto) [place] # (Auto) Eos # (Auto) Baso # (Auto) Abs Immat Gran (auto) Absolute Neuts (auto) Absolute Nucleated RBC Nucleated RBC % (auto) PT INR APTT VBG pH VBG pCO2 VBG pO2 VBG HCO3 VBG O2 Saturation VBG Base Excess Anion Gap 13 Estim Creat Clear Calc 59.1 Estimated GFR > 60 Random Glucose 150 H Lactic Acid Calcium 9.4 D Troponin I High Sens B-Natriuretic Peptide 89 Influenza Type A (JARED) Negative Influenza Type B (JARED) Negative Influenza A & B Note See Note 12/09/22 12/09/22 12/09/22 11:44 15:59 16:03 MCV MCH MCHC RDW Plt Count MPV Immature Gran % (Auto) Neut % (Auto) Lymph % (Auto) [place] % (Auto) Eos % (Auto) Baso % (Auto) Lymph # (Auto) [place] # (Auto) Eos # (Auto) Baso # (Auto) Abs Immat Gran (auto) Absolute Neuts (auto) Absolute Nucleated RBC Nucleated RBC % (auto) PT INR APTT VBG pH 7.36 VBG pCO2 48 VBG pO2 47 VBG HCO3 27 H VBG O2 Saturation 72.0 VBG Base Excess 1.1 Anion Gap Estim Creat Clear Calc Estimated GFR Random Glucose Lactic Acid 1.2 Calcium Troponin I High Sens 6.9 B-Natriuretic Peptide Influenza Type A (JARED) Influenza Type B (JARED) Influenza A & B Note Imaging Radiologist's Impressions: Impressions Chest X-Ray 12/09/22 11:22 IMPRESSION: Possible small bilateral pleural effusions. Chest CTA 12/09/22 15:58 IMPRESSION: 1. No evidence of PE. 2. No evidence of aortic aneurysm. 3. The lungs are clear. VTE: negative Assessment and Plan (1) Acute hypoxemic respiratory failure: Status: Acute (2) COPD exacerbation: Status: Acute Plan 77-year-old male with past medical history CAD post CABG, heart failure, diabetes, stroke, CKD, COPD, CVA, hypertension, hyperlipidemia and chronic back pain who?presented to the ED?for shortness of breath. Acute hypoxemic respiratory failure secondary to COPD exacerbation he is only at albuterol inhaler at home. Received BiPAP shortly, nebs, steroids, antibiotics, magnesium-shortness of breath somewhat improving blood cultures sent by ed. res panel added cta -neg for pulm embolism Continue nebs, steroids,antibiotics, taper oxygen pulm eval CAD s/p CABG:continue home meds. see below cva section. Hypertension: continue lisinopril,amlodipine,hold coreg for now due to copd excerebation. Diabetes: ISS and POC ACHS, hold home metformin Continue home Farxiga ifpossible. History of CVA: Continue with aspirin, statin, Plavix Hyperlipidemia: Continue with atorvastatin, ezetimibe . ?thrombocytopenia : unclear etiology platelets in 97 range ( [facility] records recent around 104 range) moniter cbc dvt prophylax:scd due to low platelet levels -consider adding chemoprophylax if platelets improves. Considering acute hypoxemic respiratory failure and COPD exacerbation-requiring BiPAP, now on high-flow - patient will benefit from IV steroids, nebs, high-flow oxygen. Patient will likely need2 midnight stays. Above management discussed with the patient in detail length he understand and in agreement with the above plan, time spent 70 minute. Time Spent With Patient Time: Total time managing care of this patient today ____ minutes. Quality Stroke Does the patient have a stroke diagnosis?: Yes Reason for No Anti-thrombotic by Day Two: N/A - Med Ordered VTE Prior VTE?: No VTE Risk Level:: Medical - moderate - high VTE Device Contraindication: N/A - Device Ordered VTE Drug Contraindication: N/A - Med Ordered
[2022-12-09] MEDS: Magnesium Sulfate/D5W 1 GM/100 ML PIGGYBACK IV (18:41)
[2022-12-09] MEDS: methylPREDNISolone Sod Succ 40 MG/ML VIAL IVPUSH (19:12)
--- NOTE | 2022-12-09 19:22 | PC.NURSE ---
This bond underwriter assumed care of this Pt 1900. Pt A&Ox4, denies any pain., speaking in full sentences, Respirations equal and non labored, reports dry cough. O2 sat 98% on high flow oxygen, RR 18, lung sounds slightly diminished to right side. VSS.
[2022-12-09 20:38] LABS: COVID-19 Test Negative (Negative); IDNOW Serial# 08D9AD1C
[2022-12-09] MEDS: Albuterol/Iprat 2.5/0.5MG 3 ML AMPUL.NEB INHALE (21:25)
[2022-12-09] MEDS: carvediloL 6.25 MG TABLET PO (22:32)
[2022-12-09] MEDS: lamoTRIgine 25 MG TABLET PO (22:32)
[2022-12-09 22:35] LABS: Glucose, Whole Blood 178 mg/dL (60-115)
[2022-12-09] MEDS: Insulin Lispro 100 UNIT/ML 3 ML VIAL SUBCUT (22:41)
[2022-12-09] MEDS: 0.9 % Sodium Chloride Flush 3 ML SYRINGE IVFLUSH (23:19)
[2022-12-10] VITALS (13 sets, daily range): BP systolic 105–129; BP diastolic 51–62; PULSE 69–100; RESP 15–20; TEMP 36.2–36.7; O2SAT 88–97
[2022-12-10] MEDS: Albuterol/Iprat 2.5/0.5MG 3 ML AMPUL.NEB INHALE ×6 (00:06→19:41)
[2022-12-10] MEDS: methylPREDNISolone Sod Succ 40 MG/ML VIAL IVPUSH ×3 (04:44→20:13)
[2022-12-10] MEDS: Omeprazole 20 MG CAPSULE.DR PO (07:11)
[2022-12-10 07:20] LABS: Glucose, Whole Blood 158 mg/dL (60-115)
[2022-12-10] MEDS: Ascorbic Acid 500 MG TABLET PO (07:25)
[2022-12-10] MEDS: amLODIPine Besylate 5 MG TABLET PO (07:25)
[2022-12-10] MEDS: Ezetimibe 10 MG TABLET PO (07:25)
[2022-12-10] MEDS: Cholecalciferol (Vitamin D3) 25 MCG TABLET 50 MCG PO (07:25)
[2022-12-10] MEDS: Atorvastatin Calcium 80 MG TABLET PO (07:25)
[2022-12-10] MEDS: lisinopriL 5 MG TABLET PO (07:26)
[2022-12-10] MEDS: lamoTRIgine 25 MG TABLET PO ×2 (07:26→20:13)
[2022-12-10] MEDS: 0.9 % Sodium Chloride Flush 3 ML SYRINGE IVFLUSH ×2 (07:26→23:39)
[2022-12-10] MEDS: Insulin Lispro 100 UNIT/ML 3 ML VIAL SUBCUT ×3 (07:27→21:37)
[2022-12-10 07:38] LABS: Hematocrit 43.4 % (42.0-52.0); Hemoglobin 14.1 g/dl (14.0-18.0); Mean Corpuscular HGB Conc 32.5 g/dl (31.0-36.0); Mean Corpuscular Hemoglobin 28.9 pg (27.0-33.0); Mean Corpuscular Volume 88.9 fL (80.0-98.0); Mean Platelet Volume 12.5 fL (9.4-12.4); Platelet Count 129 X10*3/uL (160-400); Red Blood Count 4.88 X10*6/uL (4.60-5.80); White Blood Count 9.3 X10*3/uL (4.8-10.8)
[2022-12-10 08:12] LABS: Anion Gap 14 (12-20); Blood Urea Nitrogen 24 mg/dL (9-16); Calcium 9.1 mg/dL (8.4-10.2); Carbon Dioxide 22 mmol/L (22-29); Chloride 105 mmol/L (96-108); Creatinine Clr Calc Pharmacy 56.2; Estimated Glomerular Filt Rate > 60; Glucose Random 166 mg/dL (60-115); Potassium 4.1 mmol/L (3.3-5.1); Sodium 137 mmol/L (135-145)
[2022-12-10] MEDS: carvediloL 6.25 MG TABLET PO ×2 (09:07→20:13)
--- NOTE | 2022-12-10 10:42 | MHC.CM.PN ---
Attempted to meet with patient in regards to discharge planning. Patient currently sleeping. No family present. Will attempt to meet again. Continue to monitor for d/c needs.
--- NOTE | 2022-12-10 11:19 | P.PNIM_ITS ---
Subjective Subjective Date of Service: 12/10/22 Interval History: f/u on copd exacerbation interval history: still sob on high flow Physical Exam Vital Signs: Vital Signs: Last Vital Signs Temp 97.9 F 12/10/22 08:48 Pulse 79 12/10/22 08:48 Resp 18 12/10/22 08:48 BP 109/58 L 12/10/22 08:48 Pulse Ox 96 12/10/22 08:48 O2 Del Method High Flow Nasal C annula 12/10/22 08:48 O2 Flow Rate 40 12/10/22 08:48 FiO2 32 12/09/22 18:29 BMI result Body Mass Index 23.5 Const: Other: General: AO X 3, no acute distress Resp: marquis wheezes, accessory muscle use CVS: S1,S2,RRR GI: +BS, NT, no distention Skin: No rash Neuro: motor grossly intact Psych: appropriate affect Objective Data Active Medications Albuterol/Ipratropium (Albuterol/Iprat 2.5/0.5mg 3 Ml Ampul.Neb) 3 ml INHALE RQ4H [facility] Last Admin: 12/10/22 07:30 Dose: 3 ml Documented By: ANGELA Amlodipine Besylate (Amlodipine Besylate 5 Mg Tablet) 5 mg PO DAILY [facility]; Protocol Last Admin: 12/10/22 07:25 Dose: 5 mg Documented By: ARCHANA Ascorbic Acid (Ascorbic Acid 500 Mg Tablet) 500 mg PO DAILY [facility] Last Admin: 12/10/22 07:25 Dose: 500 mg Documented By: ARCHANA Atorvastatin Calcium (Atorvastatin Calcium 80 Mg Tablet) 80 mg PO DAILY [facility] Last Admin: 12/10/22 07:25 Dose: 80 mg Documented By: ARCHANA Carvedilol (Carvedilol 6.25 Mg Tablet) 6.25 mg PO BID [facility]; Protocol Last Admin: 12/10/22 09:07 Dose: 6.25 mg Documented By: ARCHANA Dextrose (Dextrose 50 % 25 Gm/50 Ml Syringe) 25 gm IVPUSH Q15M PRN; Protocol PRN Reason: per Hypoglycemia Standing Ord. Ezetimibe (Ezetimibe 10 Mg Tablet) 10 mg PO DAILY [facility] Last Admin: 12/10/22 07:25 Dose: 10 mg Documented By: ARCHANA Glucose (Glucose Gel 15 Gm Gel..Gram.) 15 gm PO Q15M PRN; Protocol PRN Reason: per Hypoglycemia Standing Ord. Ceftriaxone Sodium 1 gm/ (Sodium Chloride) 50 mls @ 100 mls/hr IV Q24H [facility] Insulin Human Lispro (Insulin Lispro 100 Unit/Ml 3 Ml Vial) 0 unit SUBCUT Q IDACHS [facility]; Protocol Last Admin: 12/10/22 07:27 Dose: 2 unit Documented By: ARCHANA Lamotrigine (Lamotrigine 25 Mg Tablet) 25 mg PO BID [facility] Last Admin: 12/10/22 07:26 Dose: 25 mg Documented By: ARCHANA Lisinopril (Lisinopril 5 Mg Tablet) 5 mg PO DAILY [facility]; Protocol Last Admin: 12/10/22 07:26 Dose: 5 mg Documented By: ARCHANA Methylprednisolone Sodium Succinate (Methylprednisolone Sod Succ 40 Mg/Ml Vial) 40 mg IVPUSH Q8H [facility] Last Admin: 12/10/22 04:44 Dose: 40 mg Documented By: DAMON Omeprazole (Omeprazole 20 Mg Capsule.) 20 mg PO DAILY@0630 [facility] Last Admin: 12/10/22 07:11 Dose: 20 mg Documented By: DAMNO Pharmacy Consult (Consult Rx Perform Med Rec) 1 each MISCELLANE ONCE PRN PRN Reason: Consult order Sodium Chloride (0.9 % Sodium Chloride Flush 3 Ml Syringe) 3 ml IVFLUSH QSHIFT [facility] Last Admin: 12/10/22 07:26 Dose: 3 ml Documented By: ARCHANA Vitamin D (Cholecalciferol (Vitamin D3) 25 Mcg Tablet) 50 mcg PO DAILY [facility] Last Admin: 12/10/22 07:25 Dose: 50 mcg Documented By: ARCHANA Labs 12/10/22 07:03 12/10/22 07:04 Labs: Laboratory Results - last 24 hr 12/09/22 12/09/22 12/09/22 10:56 10:56 10:56 MCV 90.2 MCH 29.8 MCHC 33.0 RDW 12.8 Plt Count 97 L MPV 12.5 H Immature Gran % (Auto) 0.2 Neut % (Auto) 64.7 Lymph % (Auto) 21.0 [place] % (Auto) 10.1 Eos % (Auto) 3.4 Baso % (Auto) 0.6 Lymph # (Auto) 1.0 L [place] # (Auto) 0.5 Eos # (Auto) 0.2 Baso # (Auto) 0.0 Abs Immat Gran (auto) 0.01 Absolute Neuts (auto) 3.2 Absolute Nucleated RBC 0.000 Nucleated RBC % (auto) 0.0 VBG pH VBG pCO2 VBG pO2 VBG HCO3 VBG O2 Saturation VBG Base Excess Anion Gap Estim Creat Clear Calc Estimated GFR POC Glucose Random Glucose Lactic Acid Calcium Troponin I High Sens 5.7 B-Natriuretic Peptide COVID-19 (DANAE) Negative COVID-19 Clin Com See Note Influenza Type A (JARED) Influenza Type B (JARED) Influenza A & B Note 12/09/22 12/09/22 12/09/22 10:56 10:56 11:44 MCV MCH MCHC RDW Plt Count MPV Immature Gran % (Auto) Neut % (Auto) Lymph % (Auto) [place] % (Auto) Eos % (Auto) Baso % (Auto) Lymph # (Auto) [place] # (Auto) Eos # (Auto) Baso # (Auto) Abs Immat Gran (auto) Absolute Neuts (auto) Absolute Nucleated RBC Nucleated RBC % (auto) VBG pH VBG pCO2 VBG pO2 VBG HCO3 VBG O2 Saturation VBG Base Excess Anion Gap 13 Estim Creat Clear Calc 59.1 Estimated GFR > 60 POC Glucose Random Glucose 150 H Lactic Acid Calcium 9.4 D Troponin I High Sens B-Natriuretic Peptide 89 COVID-19 (DANAE) COVID-19 Clin Com Influenza Type A (JARED) Negative Influenza Type B (JARED) Negative Influenza A & B Note See Note 12/09/22 12/09/22 12/09/22 11:44 15:59 16:03 MCV MCH MCHC RDW Plt Count MPV Immature Gran % (Auto) Neut % (Auto) Lymph % (Auto) [place] % (Auto) Eos % (Auto) Baso % (Auto) Lymph # (Auto) [place] # (Auto) Eos # (Auto) Baso # (Auto) Abs Immat Gran (auto) Absolute Neuts (auto) Absolute Nucleated RBC Nucleated RBC % (auto) VBG pH 7.36 VBG pCO2 48 VBG pO2 47 VBG HCO3 27 H VBG O2 Saturation 72.0 VBG Base Excess 1.1 Anion Gap Estim Creat Clear Calc Estimated GFR POC Glucose Random Glucose Lactic Acid 1.2 Calcium Troponin I High Sens 6.9 B-Natriuretic Peptide COVID-19 (DANAE) COVID-19 Clin Com Influenza Type A (JARED) Influenza Type B (JARED) Influenza A & B Note 12/09/22 12/10/22 12/10/22 22:31 07:03 07:04 MCV 88.9 MCH 28.9 MCHC 32.5 RDW 13.0 Plt Count 129 L D MPV 12.5 H Immature Gran % (Auto) Neut % (Auto) Lymph % (Auto) [place] % (Auto) Eos % (Auto) Baso % (Auto) Lymph # (Auto) [place] # (Auto) Eos # (Auto) Baso # (Auto) Abs Immat Gran (auto) Absolute Neuts (auto) Absolute Nucleated RBC 0.000 Nucleated RBC % (auto) 0.0 VBG pH VBG pCO2 VBG pO2 VBG HCO3 VBG O2 Saturation VBG Base Excess Anion Gap 14 Estim Creat Clear Calc 56.2 Estimated GFR > 60 POC Glucose 178 H Random Glucose 166 H Lactic Acid Calcium 9.1 Troponin I High Sens B-Natriuretic Peptide COVID-19 (DANAE) COVID-19 Clin Com Influenza Type A (JARDE) Influenza Type B (JARED) Influenza A & B Note 12/10/22 07:16 MCV MCH MCHC RDW Plt Count MPV Immature Gran % (Auto) Neut % (Auto) Lymph % (Auto) [place] % (Auto) Eos % (Auto) Baso % (Auto) Lymph # (Auto) [place] # (Auto) Eos # (Auto) Baso # (Auto) Abs Immat Gran (auto) Absolute Neuts (auto) Absolute Nucleated RBC Nucleated RBC % (auto) VBG pH VBG pCO2 VBG pO2 VBG HCO3 VBG O2 Saturation VBG Base Excess Anion Gap Estim Creat Clear Calc Estimated GFR POC Glucose 158 H Random Glucose Lactic Acid Calcium Troponin I High Sens B-Natriuretic Peptide COVID-19 (DANAE) COVID-19 Clin Com Influenza Type A (JARED) Influenza Type B (JARED) Influenza A & B Note Assessment and Plan (1) COPD exacerbation: Status: Acute (2) Acute hypoxemic respiratory failure: Status: Acute (3) Asthma with exacerbation: Status: Acute Plan 77-year-old male with past medical history?CAD post CABG, heart failure, diabetes, stroke, CKD, COPD, CVA, hypertension, hyperlipidemia and chronic back pain who?presented to the ED?for shortness of breath. ?Acute hypoxemic respiratory failure secondary to COPD exacerbation he is only at albuterol inhaler at home. Received BiPAP shortly, nebs, steroids, antibiotics, magnesium-shortness of breath somewhat improving. He is still hypoxic and is on high flow continue nebs, Iv steroid, and pulmonology follow up CAD s/p CABG:continue home meds. see below cva section. Hypertension: continue lisinopril,amlodipine,hold coreg for now due to copd excerebation. Diabetes: ISS and POC ACHS, hold home metformin Continue home Farxiga ifpossible. History of CVA: Continue with aspirin, statin, Plavix Hyperlipidemia: Continue with atorvastatin, ezetimibe . ?thrombocytopenia : platlet is better dvt prophylax:scd? due to low platelet levels -consider adding chemoprophylax if platelets improves. need for inpatient: acute hyppox on high flow Time Spent With Patient Time: Total time managing care of this patient today ____ minutes. Quality Stroke Does the patient have a stroke diagnosis?: Yes Reason for No Anti-thrombotic by Day Two: N/A - Med Ordered VTE Prior VTE?: No VTE Risk Level:: Medical - moderate - high VTE Device Contraindication: N/A - Device Ordered VTE Drug Contraindication: N/A - Med Ordered
[2022-12-10 11:33] LABS: Adenovirus PCR Not Detected (Not Detect.); Bordetella parapertussis PCR Not Detected (Not Detect.); Bordetella pertussis PCR Not Detected (Not Detect.); Chlamydia pneumoniae PCR Not Detected (Not Detect.); Coronavirus 229E PCR Not Detected (Not Detect.); Coronavirus HKU1 PCR Not Detected (Not Detect.); Coronavirus NL63 PCR Not Detected (Not Detect.); Coronavirus OC43 PCR Not Detected (Not Detect.); Human metapneumovirus PCR Not Detected (Not Detect.); Influenza A PCR Not Detected (Not Detect.); Influenza B PCR Not Detected (Not Detect.); Mycoplasma pneumoniae PCR Not Detected (Not Detect.); Parainfluenza 1 PCR Not Detected (Not Detect.); Parainfluenza 2 PCR Not Detected (Not Detect.); Parainfluenza 3 PCR Not Detected (Not Detect.); Parainfluenza 4 PCR Not Detected (Not Detect.); RSV PCR Not Detected (Not Detect.); Rhino/Enterovirus PCR Not Detected (Not Detect.); SARS-CoV-2 PCR Not Detected (Not Detect.)
--- NOTE | 2022-12-10 11:44 | PC.NURSE ---
continues on high flow continuing resp treatments. waiting on bed assignment
[2022-12-10 13:19] LABS: Glucose, Whole Blood 156 mg/dL (60-115)
[2022-12-10] MEDS: cefTRIAXone sodium 1 GM in 0.9 % Sodium Chloride 50 ML IV (15:25)
[2022-12-10 21:03] LABS: Glucose, Whole Blood 241 mg/dL (60-115)
[2022-12-11] VITALS (14 sets, daily range): BP systolic 109–142; BP diastolic 54–70; PULSE 68–100; RESP 16–20; TEMP 36.5–36.8; O2SAT 93–98
[2022-12-11] MEDS: Albuterol/Iprat 2.5/0.5MG 3 ML AMPUL.NEB INHALE ×7 (00:09→23:15)
[2022-12-11] MEDS: methylPREDNISolone Sod Succ 40 MG/ML VIAL IVPUSH ×3 (04:09→21:03)
[2022-12-11] MEDS: Omeprazole 20 MG CAPSULE.DR PO (06:23)
--- NOTE | 2022-12-11 07:00 | CA_ITS ---
Transthoracic Echocardiogram Patient (Last, First, Middle): Benito Holt K Gender: Male Date of : 1945 Age: 77 Procedure Date: 12/11/2022 Procedure Type: Transthoracic Echocardiogram [place] [facility] [place] Height: 167.64 cm Weight: 69.85 kg BSA: 1.79 m2 Heart Rate: 70 bpm BP: 119 / 55 mmHg Family Day Carer: SB Referring MD: Abdirashid Good MD Symptoms: Hypoxia, ? chf Study Quality: Adequate ECG Rhythm: Sinus Conclusions: - Normal left ventricular cavity size. The left ventricular systolic function is mildly decreased. The visually estimated ejection fraction is between 40-45%. - The apical anterior segment is hypokinetic. - The apex, apical inferior, apical septum, mid inferoseptal, and mid anteroseptal segments are akinetic. Findings Procedure Information Contrast agent, definity, is being given per protocol without apparent complications. Left Ventricle Normal left ventricular cavity size. The left ventricular systolic function is mildly decreased. The visually estimated ejection fraction is between 40 45%. There is evidence of regional wall motion abnormalities. There is paradoxical septal motion consistent with a right ventricular pacemaker. Abnormal diastolic function is noted. Spectral Doppler is indicative of an impaired relaxation filling pattern. E/E prime ratio is between 8 and 15 consistent with indeterminate filling pressures. Wall Motion Rest Echo Findings The apical anterior segment is hypokinetic. The apex, apical inferior, apical septum, mid inferoseptal, and mid anteroseptal segments are akinetic. Right Ventricle Normal right ventricular cavity size. There is borderline right ventricular systolic function. There is a pacemaker wire seen in the right ventricle. Atria The left atrium is normal in size. Aortic Valve Normal aortic valve structure and function. There is no aortic valve stenosis. There is no aortic valve regurgitation. Mitral Valve The mitral valve appears normal. There is no mitral valve regurgitation. There is no mitral valve stenosis. Pulmonic Valve Normal pulmonic valve structure and function. There is no pulmonic valve regurgitation. Tricuspid Valve Normal tricuspid valve structure and function. There is trace tricuspid valve regurgitation. The right ventricular systolic pressure is not calculated. Normal right atrial pressure. There is no evidence of pulmonary hypertension. Great Vessels All visible segments of the aorta are normal in size. The visualized portions of the pulmonary artery and branches are normal. Venous The inferior vena cava is normal in size and collapses greater than 50% with inspiration. Pericardium/Pleural There is no evidence of pericardial effusion. Prior Study Comparison No prior study available for comparison. Measurements 2D Linear Measurements IVSd: 1.18 0.6-0.9/0.6-1.0 cm LVIDd: 4.56 3.9-5.3/4.2-5.9 cm LVIDd Index: 2.55 2.4-3.2/2.2-3.1 cm/m2 LVIDs: 3.13 2.0-3.6 cm LVPWd: 0.58 0.7-1.1 cm LA Diam: 3.90 2.7-3.8/3.0-4.0 cm LAIDs Index: 2.18 1.5-2.3 cm/m2 LV Mass: 163.67 67-162/88-224 g LV Mass Index: 91.44 43-95/49-115 g/m2 LVOT Diam: 2.20 3.0+(-)1.3 cm 2D Systolic Function EF 4C: 42.50 >55% EF 2C: 43.80 >55% EF BiP: 44.60 >55% Mitral Valve MV Pk E: 0.68 MV PK A: 1.00 MV Decel Time: 298.00 E/A: 0.70 E'Lateral: 7.51 E'Medial: 5.00 E/E' Med: 13.60 E/E' Lat: 9.10 PHT: 87.00 MVA PHT: 2.53 Decel [place]: 2.29 Aortic Valve AoV Pk Henok: 1.32 AoV Pk Grad: 7.00 LVOT LVOT Pk Hen[place]: 1.17 LVOT Mn Hen[place]: 0.80 LVOT VTI: 0.25 LVOT Pk Grad: 5.00 LVOT Mn Grad: 3.00 LVOT Diam: 2.20 LVOT Area: 3.80 Diastolic Function MV Pk E: 0.68 MV Pk A: 1.00 E/A: 0.70 E'Medial: 5.00 E/E' Med: 13.60 E' Laterial: 7.51 E/E' Lat: 9.10 Right Ventricle TAPSE (mm): 10.90 Tricuspid Valve TR Pk Henok: 2.38 TR Pk Grad: 23.00 RA Press: 3.00 RVSP: 26.00 Great Vessels Aorta Sinus of Valsalva: 3.10 2.0-3.5 cm Ao Asc: 3.10 2.1-3.4 cm Pulmonary Veins Pulm Vein S/D 1.50 Pulmonary Valve PV Pk Henok: 1.20 Peak PV Grad: 6.00 Updated in Other Vendor System with Status of Final Ivan Fierro MD electronically signed on 12/11/2022 9:38:07 PM with status of Final
[2022-12-11 07:41] LABS: Glucose, Whole Blood 173 mg/dL (60-115)
[2022-12-11] MEDS: amLODIPine Besylate 5 MG TABLET PO (07:56)
[2022-12-11] MEDS: Ascorbic Acid 500 MG TABLET PO (07:56)
[2022-12-11] MEDS: lamoTRIgine 25 MG TABLET PO ×2 (07:56→21:04)
[2022-12-11] MEDS: Insulin Lispro 100 UNIT/ML 3 ML VIAL SUBCUT ×4 (07:56→21:05)
[2022-12-11] MEDS: Atorvastatin Calcium 80 MG TABLET PO (07:56)
[2022-12-11] MEDS: Cholecalciferol (Vitamin D3) 25 MCG TABLET 50 MCG PO (07:57)
[2022-12-11] MEDS: Ezetimibe 10 MG TABLET PO (07:57)
[2022-12-11] MEDS: 0.9 % Sodium Chloride Flush 3 ML SYRINGE IVFLUSH ×2 (07:57→21:15)
[2022-12-11] MEDS: carvediloL 6.25 MG TABLET PO ×2 (07:57→21:03)
[2022-12-11] MEDS: lisinopriL 5 MG TABLET PO (07:57)
[2022-12-11] MEDS: guaiFENesin 100 MG/5 ML LIQUID PO ×4 (08:06→21:14)
--- NOTE | 2022-12-11 08:14 | HO.PM.IMPN ---
Subjective Subjective Date of Service: 12/11/22 Interval History: f/u on copd exacerbation interval history: still sob on high flow, coughing alot and didn't sleep Physical Exam Vital Signs: Vital Signs: Last Vital Signs Temp 97.8 F 12/11/22 07:34 Pulse 100 12/11/22 08:09 Resp 18 12/11/22 08:09 BP 119/55 L 12/11/22 07:34 Pulse Ox 96 12/11/22 07:34 O2 Del Method High Flow Nasal C annula 12/11/22 07:34 O2 Flow Rate 4 12/11/22 07:34 FiO2 30.8 12/11/22 07:34 BMI result Body Mass Index 23.5 Const: Other: General: AO X 3, no acute distress Resp: less wheezing, accessory muscle use CVS: S1,S2,RRR GI: +BS, NT, no distention Skin: No rash Neuro: motor grossly intact Psych: appropriate affect Objective Data Active Medications Albuterol/Ipratropium (Albuterol/Iprat 2.5/0.5mg 3 Ml Ampul.Neb) 3 ml INHALE RQ4H [facility] Last Admin: 12/11/22 08:06 Dose: 3 ml Documented By: ANGELA Amlodipine Besylate (Amlodipine Besylate 5 Mg Tablet) 5 mg PO DAILY [facility]; Protocol Last Admin: 12/11/22 07:56 Dose: 5 mg Documented By: CARLOS Ascorbic Acid (Ascorbic Acid 500 Mg Tablet) 500 mg PO DAILY [facility] Last Admin: 12/11/22 07:56 Dose: 500 mg Documented By: CARLOS Atorvastatin Calcium (Atorvastatin Calcium 80 Mg Tablet) 80 mg PO DAILY [facility] Last Admin: 12/11/22 07:56 Dose: 80 mg Documented By: CARLOS Carvedilol (Carvedilol 6.25 Mg Tablet) 6.25 mg PO BID [facility]; Protocol Last Admin: 12/11/22 07:57 Dose: 6.25 mg Documented By: CARLOS Dextrose (Dextrose 50 % 25 Gm/50 Ml Syringe) 25 gm IVPUSH Q15M PRN; Protocol PRN Reason: per Hypoglycemia Standing Ord. Ezetimibe (Ezetimibe 10 Mg Tablet) 10 mg PO DAILY [facility] Last Admin: 12/11/22 07:57 Dose: 10 mg Documented By: CARLOS Glucose (Glucose Gel 15 Gm Gel..Gram.) 15 gm PO Q15M PRN; Protocol PRN Reason: per Hypoglycemia Standing Ord. Guaifenesin (Guaifenesin 100 Mg/5 Ml Liquid) 5 ml PO Q4H PRN PRN Reason: Consult order Last Admin: 12/11/22 08:06 Dose: 5 ml Documented By: CARLOS Ceftriaxone Sodium 1 gm/ (Sodium Chloride) 50 mls @ 100 mls/hr IV Q24H [facility] Last Infusion: 12/10/22 16:00 Dose: 0 mls/hr Documented By: DOBROEliceo Insulin Human Lispro (Insulin Lispro 100 Unit/Ml 3 Ml Vial) 0 unit SUBCUT QIDACHS [facility]; Protocol Last Admin: 12/11/22 07:56 Dose: 2 unit Documented By: CARLOS Lamotrigine (Lamotrigine 25 Mg Tablet) 25 mg PO BID [facility] Last Admin: 12/11/22 07:56 Dose: 25 mg Documented By: CARLOS Lisinopril (Lisinopril 5 Mg Tablet) 5 mg PO DAILY [facility]; Protocol Last Admin: 12/11/22 07:57 Dose: 5 mg Documented By: CARLOS Methylprednisolone Sodium Succinate (Methylprednisolone Sod Succ 40 Mg/Ml Vial) 40 mg IVPUSH Q8H [facility] Last Admin: 12/11/22 04:09 Dose: 40 mg Documented By: SOPHIA Omeprazole (Omeprazole 20 Mg Capsule.Dr) 20 mg PO DAILY@0630 [facility] Last Admin: 12/11/22 06:23 Dose: 20 mg Documented By: PARISH Pharmacy Consult (Consult Rx Perform Med Rec) 1 each MISCELLANE ONCE PRN PRN Reason: Consult order Sodium Chloride (0.9 % Sodium Chloride Flush 3 Ml Syringe) 3 ml IVFLUSH QSHIFT [facility] Last Admin: 12/11/22 07:57 Dose: 3 ml Documented By: CARLOS Vitamin D (Cholecalciferol (Vitamin D3) 25 Mcg Tablet) 50 mcg PO DAILY [facility] Last Admin: 12/11/22 07:57 Dose: 50 mcg Documented By: CARLOS Labs 12/10/22 07:03 12/10/22 07:04 Labs: Laboratory Results - last 24 hr 12/10/22 12/10/22 12/10/22 04:18 07:03 13:15 MCV 88.9 MCH 28.9 MCHC 32.5 RDW 13.0 Plt Count 129 L D MPV 12.5 H Absolute Nucleated RBC 0.000 Nucleated RBC % (auto) 0.0 POC Glucose 156 H Respiratory Panel Simmons See Note Adenovirus (Rapid PCR) Not Detected B.pert (TEM-PCR) Not Detected B.parapertussis DNA PCR Not Detected C. pneumoniae DNA (PCR) Not Detected Coronavirus OC43 (PCR) Not Detected Coronavirus HKU1 (PCR) Not Detected Coronavirus 229E (PCR) Not Detected Coronavirus NL63 (PCR) Not Detected Human Metapneumovir PCR Not Detected Influenza A (RT-PCR) Not Detected Influenza B (RT-PCR) Not Detected M. pneumoniae (PCR) Not Detected Parainfluenza 1 (PCR) Not Detected Parainfluenza 2 (PCR) Not Detected Parainfluenza 3 (PCR) Not Detected Parainfluenza 4 (PCR) Not Detected RSV (PCR) Not Detected Entero/Rhino (PCR) Not Detected SARS-CoV-2 RNA (RT-PCR) Not Detected 12/10/22 12/11/22 21:00 07:37 MCV MCH MCHC RDW Plt Count MPV Absolute Nucleated RBC Nucleated RBC % (auto) POC Glucose 241 H 173 H Respiratory Panel Simmons Adenovirus (Rapid PCR) B.pert (TEM-PCR) B.parapertussis DNA PCR C. pneumoniae DNA (PCR) Coronavirus OC43 (PCR) Coronavirus HKU1 (PCR) Coronavirus 229E (PCR) Coronavirus NL63 (PCR) Human Metapneumovir PCR Influenza A (RT-PCR) Influenza B (RT-PCR) M. pneumoniae (PCR) Parainfluenza 1 (PCR) Parainfluenza 2 (PCR) Parainfluenza 3 (PCR) Parainfluenza 4 (PCR) RSV (PCR) Entero/Rhino (PCR) SARS-CoV-2 RNA (RT-PCR) Microbiology Microbiology Results: Microbiology 12/09/22 11:44 Blood Culture - Preliminary Blood - Venous No growth after 24 hours. 12/09/22 10:56 Blood Culture - Preliminary Blood - Venous No growth after 24 hours. Assessment and Plan (1) COPD exacerbation: Status: Acute (2) Acute hypoxemic respiratory failure: Status: Acute (3) Asthma with exacerbation: Status: Acute Plan 77-year-old male with past medical history?CAD post CABG, heart failure, diabetes, stroke, CKD, COPD, CVA, hypertension, hyperlipidemia and chronic back pain who?presented to the ED?for shortness of breath. ?Acute hypoxemic respiratory failure secondary to COPD exacerbation, required bipap in ed, he continues to need high flow but will wean as tolerated continue nebs, iv steroid. Pulmonolary consult CAD s/p CABG:continue home meds. see below cva section. Hypertension: continue lisinopril,amlodipine,hold coreg for now due to copd excerebation. Diabetes: ISS and POC ACHS, hold home metformin Continue home Farxiga ifpossible. History of CVA: Continue with aspirin, statin, Plavix Hyperlipidemia: Continue with atorvastatin, ezetimibe . ?thrombocytopenia : platlet is better dvt prophylax:lovenox need for inpatient: acute hyppox on high flow Time Spent With Patient Time: Total time managing care of this patient today ____ minutes. Quality Stroke Does the patient have a stroke diagnosis?: Yes Reason for No Anti-thrombotic by Day Two: N/A - Med Ordered VTE Prior VTE?: No VTE Risk Level:: Medical - moderate - high VTE Device Contraindication: N/A - Device Ordered VTE Drug Contraindication: N/A - Med Ordered
--- NOTE | 2022-12-11 09:06 | MHC.CM.PN ---
CM met at bedside with Patient, who appeared slightly confused and spoke with Daughter/HCP/Camilla @ [phone] and addressed IMM with her (original will be mailed certified letter to Camilla and a copy has been placed on the chart). Patient lives in a house with his Daughter, his and his Grandchild and he uses both a cane and a walker to assist with mobility. 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 CM had initiated and will follow for dc planning. Patient has received Covid vax x3 and his PCP/SET KEY DRIVER is Leticia Foster.
[2022-12-11] MEDS: Enoxaparin Sodium 40 MG/0.4 ML SYRINGE SUBCUT (10:11)
[2022-12-11] MEDS: Morphine Sulfate 2 MG/ML CARTRIDGE IVPUSH (10:11)
[2022-12-11 11:16] LABS: Glucose, Whole Blood 186 mg/dL (60-115)
--- NOTE | 2022-12-11 13:18 | PM.CNPUL ---
History of Present Illness History of Present Illness Consult date: 12/11/22 Chief complaint: Acute hypoxemic resp. fail. sec. to COPD exac Narrative: 77-year-old gentleman with underlying history of CAD status post CABG, heart failure, diabetes mellitus, CKD, COPD, former 60+ pack-year smoker, quit 2013 admitted on 12/09/2022 with acute shortness of breath of approximately 1 day duration. Patient was admitted and treated for COPD exacerbation. At that time evaluation patient is on 4 L via high-flow nasal cannula in continues to complain of significant dyspnea. His O2 saturations of in mid 90s and he has now wheezing on physical exam. Patient has had CT angio chest that showed no pulmonary emboli and no significant emphysema. His cardiac workup also has been unrevealing so far. No evidence of CO2 retention on blood gas. Review of Systems Constitutional: Constitutional: Denies daytime sleepiness, Denies excessive sweating, Denies fatigue, Denies fever(s), Denies lethargy, Denies malaise, Denies night sweats, Denies snoring and Denies weight loss Eyes: Eyes: Denies blurry vision and Denies itchy eyes ENT: Denies nasal congestion, Denies post nasal drip, Denies sinus pain, Denies sinus pressure and Denies other ( Thrush) Cardiovascular: Cardiovascular: Denies chest pain, Denies pedal edema, Denies dyspnea, Reports dyspnea on exertion, Denies orthopnea and Denies paroxysmal nocturnal dyspnea Respiratory: Respiratory: Denies cough, Denies hemoptysis, Denies excessive phlegm production, Denies dyspnea, Reports dyspnea on exertion, Denies snoring and Denies wheezing Gastrointestinal: Gastrointestinal: Denies abdominal pain and Denies heartburn Musculoskeletal: Musculoskeletal: Denies myalgias, Denies arthralgias and Denies joint swelling Integumentary/Breasts: Skin/Breast: Denies rash Neurologic: Denies memory loss and Denies seizure-like activity Psychiatric: Psychiatric: Denies abnormal sleep pattern, Denies anxiety and Denies memory loss Endocrine: Endocrine: Denies excessive sweating, Denies fatigue and Denies heat intolerance Hematologic/Lymphatic: Hematologic/Lymphatic: Denies easy bruising Allergic/Immunologic: Allergic/Immunologic: Denies itchy eyes, Denies seasonal rhinorrhea and Denies wheezing PMFSH Social History Social History Household Members: Family Housing: House Do you presently have visiting nurse or other home services: No Patient Tobacco Use Status: Former Tobacco user Advance Directives Date on File: 12/10/22 service: No Meds Allergies Allergy/AdvReac Type Severity Reaction Status Date / Time No Known Allergies Allergy Verified 12/09/22 10:45 Active Medications: Current Medications Albuterol/Ipratropium (Albuterol/Iprat 2.5/0.5mg 3 Ml Ampul.Neb) 3 ml INHALE RQ4H [facility] Last Admin: 12/11/22 11:29 Dose: 3 ml Amlodipine Besylate (Amlodipine Besylate 5 Mg Tablet) 5 mg PO DAILY [facility]; Protocol Last Admin: 12/11/22 07:56 Dose: 5 mg Ascorbic Acid (Ascorbic Acid 500 Mg Tablet) 500 mg PO DAILY [facility] Last Admin: 12/11/22 07:56 Dose: 500 mg Atorvastatin Calcium (Atorvastatin Calcium 80 Mg Tablet) 80 mg PO DAILY [facility] Last Admin: 12/11/22 07:56 Dose: 80 mg Carvedilol (Carvedilol 6.25 Mg Tablet) 6.25 mg PO BID [facility]; Protocol Last Admin: 12/11/22 07:57 Dose: 6.25 mg Dextrose (Dextrose 50 % 25 Gm/50 Ml Syringe) 25 gm IVPUSH Q15M PRN; Protocol PRN Reason: per Hypoglycemia Standing Ord. Ezetimibe (Ezetimibe 10 Mg Tablet) 10 mg PO DAILY [facility] Last Admin: 12/11/22 07:57 Dose: 10 mg Enoxaparin Sodium (Enoxaparin Sodium 40 Mg/0.4 Ml Syringe) 40 mg SUBCUT Q24H [facility] Last Admin: 12/11/22 10:11 Dose: 40 mg Glucose (Glucose Gel 15 Gm Gel..Gram.) 15 gm PO Q15M PRN; Protocol PRN Reason: per Hypoglycemia Standing Ord. Guaifenesin (Guaifenesin 100 Mg/5 Ml Liquid) 5 ml PO Q4H PRN PRN Reason: Consult order Last Admin: 12/11/22 12:25 Dose: 5 ml Ceftriaxone Sodium 1 gm/ (Sodium Chloride) 50 mls @ 100 mls/hr IV Q24H [facility] Last Infusion: 12/10/22 16:00 Dose: Infused Insulin Human Lispro (Insulin Lispro 100 Unit/Ml 3 Ml Vial) 0 unit SUBCUT QIDACHS [facility]; Protocol Last Admin: 12/11/22 12:19 Dose: 2 unit Lamotrigine (Lamotrigine 25 Mg Tablet) 25 mg PO BID [facility] Last Admin: 12/11/22 07:56 Dose: 25 mg Lisinopril (Lisinopril 5 Mg Tablet) 5 mg PO DAILY [facility]; Protocol Last Admin: 12/11/22 07:57 Dose: 5 mg Methylprednisolone Sodium Succinate (Methylprednisolone Sod Succ 40 Mg/Ml Vial) 40 mg IVPUSH Q8H [facility] Last Admin: 12/11/22 12:20 Dose: 40 mg Morphine Sulfate (Morphine Sulfate 2 Mg/Ml Cartridge) 2 mg IVPUSH Q4H PRN; Protocol PRN Reason: Pain, Severe (Pain Scale 7-10) Last Admin: 12/11/22 10:11 Dose: 2 mg Omeprazole (Omeprazole 20 Mg Capsule.Dr) 20 mg PO DAILY@0630 [facility] Last Admin: 12/11/22 06:23 Dose: 20 mg Pharmacy Consult (Consult Rx Perform Med Rec) 1 each MISCELLANE ONCE PRN PRN Reason: Consult order Sodium Chloride (0.9 % Sodium Chloride Flush 3 Ml Syringe) 3 ml IVFLUSH QSHIFT [facility] Last Admin: 12/11/22 07:57 Dose: 3 ml Vitamin D (Cholecalciferol (Vitamin D3) 25 Mcg Tablet) 50 mcg PO DAILY [facility] Last Admin: 12/11/22 07:57 Dose: 50 mcg Home Medications Medication Instructions Recorded Confirmed Last Taken Type albuterol sulfate 90 mcg/actuation 2 puff inhalation Q4H PRN 12/09/22 12/09/22 Unknown History aerosol inhaler (Ventolin HFA) Shortness Of Breath Or Wheezing amlodipine 5 mg tablet 5 mg PO DAILY 12/09/22 12/09/22 Unknown History ascorbic acid (vitamin C) 500 mg 500 mg PO DAILY 12/09/22 12/09/22 Unknown History tablet (Vitamin C) atorvastatin 80 mg tablet 80 mg PO DAILY 12/09/22 12/09/22 Unknown History carvedilol 6.25 mg tablet 6.25 mg PO BID 12/09/22 12/09/22 Unknown History cholecalciferol (vitamin D3) 50 50 mcg PO DAILY 12/09/22 12/09/22 Unknown History mcg (2,000 unit) capsule ezetimibe 10 mg tablet 10 mg PO DAILY 12/09/22 12/09/22 Unknown History lamotrigine 25 mg tablet 25 mg PO BID 12/09/22 12/09/22 Unknown History lisinopril 5 mg tablet 5 mg PO DAILY 12/09/22 12/09/22 Unknown History metformin 500 mg tablet 500 mg PO BID 12/09/22 12/09/22 Unknown History oxycodone 10 mg tablet 10 mg PO Q4H PRN pain 12/09/22 12/09/22 12/08/22 History pantoprazole 40 mg tablet,delayed 40 mg PO DAILY 12/09/22 12/09/22 Unknown History release Physical Exam Vital Signs: Vital Signs: Last Vital Signs Temp 97.7 F 12/11/22 11:24 Pulse 88 12/11/22 11:31 Resp 16 12/11/22 11:31 BP 142/69 H 12/11/22 11:24 Pulse Ox 93 12/11/22 11:24 O2 Del Method High Flow Nasal C annula 12/11/22 11:24 O2 Flow Rate 4 12/11/22 07:34 FiO2 31 12/11/22 11:24 BMI result Body Mass Index 23.5 Const: General: no acute distress and alert Nutritional Appearance: not obese Orientation/consciousness: Other orientation findings ( oriented) HEENT: Head: Yes atraumatic Eyes: General: appearance normal, both eyes and all related structures Sclerae: sclerae normal EOM: EOMs intact bilaterally Neck: Neck: Yes supple Lymphatic: no lymphadenopathy noted Resp: Effort & Inspection: normal respiratory effort and no use of accessory muscles Auscultation: clear to auscultation bilaterally Cardio: Rate: regular rate Rhythm: regular rhythm Heart sounds: no gallops, no murmurs and no rubs Skin: General skin exam: other ( warm) Extrem: General: No clubbing, No cyanosis and No edema Results Laboratory Findings 12/10/22 07:03 12/10/22 07:04 ABG, PT/INR, D-dimer: PT/INR, D-dimer PT 10.6 SEC (10.0-13.1) 12/09/22 10:56 INR 0.9 (0.9-1.1) 12/09/22 10:56 Abnormal lab findings: Abnormal Labs 12/09/22 12/09/22 12/09/22 10:56 11:44 16:03 RBC 3.86 L Hgb 11.5 L Hct 34.8 L Plt Count 97 L MPV 12.5 H Lymph # (Auto) 1.0 L VBG HCO3 27 H BUN 18 H POC Glucose Random Glucose 150 H 12/09/22 12/10/22 12/10/22 22:31 07:03 07:04 RBC Hgb Hct Plt Count 129 L D MPV 12.5 H Lymph # (Auto) VBG HCO3 BUN 24 H POC Glucose 178 H Random Glucose 166 H 12/10/22 12/10/22 12/10/22 07:16 13:15 21:00 RBC Hgb Hct Plt Count MPV Lymph # (Auto) VBG HCO3 BUN POC Glucose 158 H 156 H 241 H Random Glucose 12/11/22 12/11/22 07:37 11:12 RBC Hgb Hct Plt Count MPV Lymph # (Auto) VBG HCO3 BUN POC Glucose 173 H 186 H Random Glucose Microbiology: Microbiology 12/09/22 10:56 Blood - Venous Blood Culture - Preliminary No growth after 48 hours. 12/09/22 11:44 Blood - Venous Blood Culture - Preliminary No growth after 24 hours. Assessment and Plan (1) Acute hypoxemic respiratory failure: Status: Acute (2) COPD (chronic obstructive pulmonary disease): Status: Acute Plan Impression: 77-year-old gentleman admitted with dyspnea and treated for COPD exacerbation with some improvement, however still with significant hypoxemia, but no obvious COPD exacerbation at this time. May have underlying ischemic cardiac component. CT angio chest with no evidence of pulmonary emboli or significant emphysema, or infiltrates. Recommendations: Agree with current treatment with short taper of systemic glucocorticoids and nebulized bronchodilators. Consider switching from high-flow nasal cannula to regular nasal cannula. No concern for CO2 retention at this time. Consider cardiac ischemic workup. Time Spent With Patient Time: Total time managing care of this patient today ____ minutes. Procedures Date of Service Date of Service: 12/11/22
[2022-12-11] MEDS: cefTRIAXone sodium 1 GM in 0.9 % Sodium Chloride 50 ML IV (15:16)
[2022-12-11] MEDS: oxyCODONE HCl Immed Release 5 MG TABLET 10 MG PO ×2 (15:16→21:08)
[2022-12-11 16:03] LABS: Glucose, Whole Blood 243 mg/dL (60-115)
[2022-12-11 20:09] LABS: Glucose, Whole Blood 319 mg/dL (60-115)
[2022-12-12] VITALS (15 sets, daily range): BP systolic 112–150; BP diastolic 59–79; PULSE 59–86; RESP 15–20; TEMP 36–37.1; O2SAT 94–100
[2022-12-12] MEDS: Albuterol/Iprat 2.5/0.5MG 3 ML AMPUL.NEB INHALE ×5 (02:58→18:48)
[2022-12-12] MEDS: methylPREDNISolone Sod Succ 40 MG/ML VIAL IVPUSH ×3 (03:13→22:11)
[2022-12-12] MEDS: guaiFENesin 100 MG/5 ML LIQUID PO ×2 (03:14→08:17)
[2022-12-12] MEDS: oxyCODONE HCl Immed Release 5 MG TABLET 10 MG PO ×4 (03:16→22:12)
[2022-12-12] MEDS: Omeprazole 20 MG CAPSULE.DR PO (05:22)
[2022-12-12 07:49] LABS: Glucose, Whole Blood 195 mg/dL (60-115)
[2022-12-12] MEDS: Enoxaparin Sodium 40 MG/0.4 ML SYRINGE SUBCUT (08:17)
[2022-12-12] MEDS: lisinopriL 5 MG TABLET PO (08:18)
[2022-12-12] MEDS: amLODIPine Besylate 5 MG TABLET PO (08:18)
[2022-12-12] MEDS: Insulin Lispro 100 UNIT/ML 3 ML VIAL SUBCUT ×4 (08:18→22:13)
[2022-12-12] MEDS: Ezetimibe 10 MG TABLET PO (08:18)
[2022-12-12] MEDS: Cholecalciferol (Vitamin D3) 25 MCG TABLET 50 MCG PO (08:18)
[2022-12-12] MEDS: Atorvastatin Calcium 80 MG TABLET PO (08:18)
[2022-12-12] MEDS: carvediloL 6.25 MG TABLET PO (08:18)
[2022-12-12] MEDS: lamoTRIgine 25 MG TABLET PO ×2 (08:18→22:12)
[2022-12-12] MEDS: Ascorbic Acid 500 MG TABLET PO (08:18)
[2022-12-12] MEDS: 0.9 % Sodium Chloride Flush 3 ML SYRINGE IVFLUSH ×2 (08:19→16:49)
--- NOTE | 2022-12-12 09:03 | P.CDIM_ITS ---
PROVIDER RESPONSE TEXT: To clarify, the appropriate diagnosis supported by the clinical indicators: Other QUERY TEXT: PHYSICIAN'S DOCUMENTATION REQUEST Date of Query: 12/11/2022 11:54 AM EDT Patient Name: Danie Holt Admit Date: 12/09/2022 Dear Abdirashid Good, A review of the medical record indicates additional documentation may be needed. Please review below and update the documentation accordingly. Clinical Indicators: Ed; PMH- Congestive heart failure Hypertension, no edema, sob, DDX: CHF, will obtain chest xray to rule out CHF. BNP 89 Progress notes: Plan: heart failure Please provide further specificity regarding the most likely type and acuity of CHF if you are evalua ting, treating, or monitoring. Systolic Please specify if Acute, Chronic, or Acute on chronic, or Unable to determine Diastolic Please specify if Acute, Chronic, or Acute on chronic, or Unable to determine Combined Systolic/Diastolic Please specify if Acute, Chronic, or Acute on chronic, or Unable to determine Other Other (explain)Clinically unable to determine (explain)Thank you, Valerie Hay, CCS, CDIS Use of terms such as suspected, likely, concern for, or probable (associated with a specific diagnosi s that is being evaluated, monitored, or treated as if it exists) are acceptable and can be coded in the inpatient se tting, when documented at the time of discharge. Please use your independent medical judgment in providing your response. THIS QUERY IS PART OF THE PERMANENT MEDICAL RECORD
--- NOTE | 2022-12-12 09:06 | P.CDIM_ITS ---
PROVIDER RESPONSE TEXT: To clarify, the appropriate diagnosis supported by the clinical indicators: Diabetes mellitus Type 2 with hyperglycemia QUERY TEXT: PHYSICIAN'S DOCUMENTATION REQUEST Date of Query: 12/12/2022 08:58 AM EDT Patient Name: Danie Holt Admit Date: 12/09/2022 Dear Abdirashid Good, A review of the medical record indicates additional documentation may be needed. Please review below and update the documentation accordingly. Clinical Indicators: lLABS: POC glucose: 319 H Insulin ISS & POC Dx. Diabetes Please clarify the following regarding the lab findings: Diabetes mellitus Type 2 with hyperglycemia Other please specify Other (explain)Clinically unable to determine (explain)Thank you, Valerie Hay, CCS, CDIS Use of terms such as suspected, likely, concern for, or probable (associated with a specific diagnosi s that is being evaluated, monitored, or treated as if it exists) are acceptable and can be coded in the inpatient se tting, when documented at the time of discharge. Please use your independent medical judgment in providing your response. THIS QUERY IS PART OF THE PERMANENT MEDICAL RECORD
--- NOTE | 2022-12-12 09:16 | P.PNIM_ITS ---
Subjective Subjective Date of Service: 12/12/22 Interval History: f/u on copd exacerbation interval history: Persistent sob, cough Physical Exam Vital Signs: Vital Signs: Last Vital Signs Temp 97.3 F 12/12/22 07:17 Pulse 80 12/12/22 07:53 Resp 18 12/12/22 07:54 BP 140/79 H 12/12/22 07:17 Pulse Ox 98 12/12/22 07:17 O2 Del Method High Flow Nasal C annula 12/12/22 07:17 O2 Flow Rate 40 12/12/22 07:17 FiO2 31 12/12/22 07:17 BMI result Body Mass Index 23.5 Objective Data Active Medications Albuterol/Ipratropium (Albuterol/Iprat 2.5/0.5mg 3 Ml Ampul.Neb) 3 ml INHALE RQ4H [facility] Last Admin: 12/12/22 07:53 Dose: 3 ml Documented By: ANGELA Amlodipine Besylate (Amlodipine Besylate 5 Mg Tablet) 5 mg PO DAILY [facility]; Protocol Last Admin: 12/12/22 08:18 Dose: 5 mg Documented By: CARLOS Ascorbic Acid (Ascorbic Acid 500 Mg Tablet) 500 mg PO DAILY [facility] Last Admin: 12/12/22 08:18 Dose: 500 mg Documented By: CARLOS Atorvastatin Calcium (Atorvastatin Calcium 80 Mg Tablet) 80 mg PO DAILY [facility] Last Admin: 12/12/22 08:18 Dose: 80 mg Documented By: CARLOS Benzonatate (Benzonatate 100 Mg Capsule) 100 mg PO TID [facility] Carvedilol (Carvedilol 6.25 Mg Tablet) 6.25 mg PO BID [facility]; Protocol Last Admin: 12/12/22 08:18 Dose: 6.25 mg Documented By: CARLOS Dextrose (Dextrose 50 % 25 Gm/50 Ml Syringe) 25 gm IVPUSH Q15M PRN; Protocol PRN Reason: per Hypoglycemia Standing Ord. Ezetimibe (Ezetimibe 10 Mg Tablet) 10 mg PO DAILY [facility] Last Admin: 12/12/22 08:18 Dose: 10 mg Documented By: CARLOS Enoxaparin Sodium (Enoxaparin Sodium 40 Mg/0.4 Ml Syringe) 40 mg SUBCUT Q24H [facility] Last Admin: 12/12/22 08:17 Dose: 40 mg Documented By: CARLOS Glucose (Glucose Gel 15 Gm Gel..Gram.) 15 gm PO Q15M PRN; Protocol PRN Reason: per Hypoglycemia Standing Ord. Guaifenesin (Guaifenesin 100 Mg/5 Ml Liquid) 5 ml PO Q4H PRN PRN Reason: Consult order Last Admin: 12/12/22 08:17 Dose: 5 ml Documented By: CARLOS Ceftriaxone Sodium 1 gm/ (Sodium Chloride) 50 mls @ 100 mls/hr IV Q24H [facility] Last Infusion: 12/11/22 16:00 Dose: 0 mls/hr Documented By: CARLOS Insulin Human Lispro (Insulin Lispro 100 Unit/Ml 3 Ml Vial) 0 unit SUBCUT QIDACHS [facility]; Protocol Last Admin: 12/12/22 08:18 Dose: 2 unit Documented By: CARLOS Lamotrigine (Lamotrigine 25 Mg Tablet) 25 mg PO BID [facility] Last Admin: 12/12/22 08:18 Dose: 25 mg Documented By: CARLOS Lisinopril (Lisinopril 5 Mg Tablet) 5 mg PO DAILY [facility]; Protocol Last Admin: 12/12/22 08:18 Dose: 5 mg Documented By: CARLOS Methylprednisolone Sodium Succinate (Methylprednisolone Sod Succ 40 Mg/Ml Vial) 40 mg IVPUSH Q8H [facility] Last Admin: 12/12/22 03:13 Dose: 40 mg Documented By: KAMERON Morphine Sulfate (Morphine Sulfate 2 Mg/Ml Cartridge) 2 mg IVPUSH Q4H PRN; Protocol PRN Reason: Pain, Severe (Pain Scale 7-10) Last Admin: 12/11/22 10:11 Dose: 2 mg Documented By: CARLOS Omeprazole (Omeprazole 20 Mg Capsule.Dr) 20 mg PO DAILY@0630 [facility] Last Admin: 12/12/22 05:22 Dose: 20 mg Documented By: KAMERON Oxycodone HCl (Oxycodone Hcl Immed Release 5 Mg Tablet) 10 mg PO Q4H PRN PRN Reason: Pain, Severe (Pain Scale 7-10) Last Admin: 12/12/22 08:18 Dose: 10 mg Documented By: CARLOS Pharmacy Consult (Consult Rx Perform Med Rec) 1 each MISCELLANE ONCE PRN PRN Reason: Consult order Sodium Chloride (0.9 % Sodium Chloride Flush 3 Ml Syringe) 3 ml IVFLUSH QSHIFT [facility] Last Admin: 12/12/22 08:19 Dose: 3 ml Documented By: CARLOS Vitamin D (Cholecalciferol (Vitamin D3) 25 Mcg Tablet) 50 mcg PO DAILY [facility] Last Admin: 12/12/22 08:18 Dose: 50 mcg Documented By: CARLOS Labs 12/10/22 07:03 12/10/22 07:04 Labs: Laboratory Results - last 24 hr 12/11/22 12/11/22 12/11/22 11:12 15:59 20:04 POC Glucose 186 H 243 H 319 H 12/12/22 07:20 POC Glucose 195 H Microbiology Microbiology Results: Microbiology 12/09/22 11:44 Blood Culture - Preliminary Blood - Venous No growth after 48 hours. 12/09/22 10:56 Blood Culture - Preliminary Blood - Venous No growth after 48 hours. Assessment and Plan (1) COPD exacerbation: Status: Acute (2) Acute hypoxemic respiratory failure: Status: Acute (3) Asthma with exacerbation: Status: Acute Plan 77-year-old male with past medical history?CAD post CABG, heart failure, diabetes, stroke, CKD, COPD, CVA, hypertension, hyperlipidemia and chronic back pain who?presented to the ED?for shortness of breath. ?Acute hypoxemic respiratory failure secondary to COPD exacerbation, required bipap in ed, he continues to need high flow but will wean as tolerated continue nebs, iv steroid. Pulmonolary consult noted, if not improving, consider cardiac ischemic work up. Wean off high flow. robitussin and tessalon for cough CAD s/p CABG:continue home meds. see below cva section. Hypertension: continue lisinopril,amlodipine, hold coreg for now due to copd excerebation. Diabetes: ISS and POC ACHS, hold home metformin Continue home Farxiga ifpossible. History of CVA: Continue with aspirin, statin, Plavix Hyperlipidemia: Continue with atorvastatin, ezetimibe . ?thrombocytopenia : platlet is better dvt prophylax:lovenox need for inpatient: acute hyppox on high flow Time Spent With Patient Time: Total time managing care of this patient today ____ minutes. Quality Stroke Does the patient have a stroke diagnosis?: Yes Reason for No Anti-thrombotic by Day Two: N/A - Med Ordered VTE Prior VTE?: No VTE Risk Level:: Medical - moderate - high VTE Device Contraindication: N/A - Device Ordered VTE Drug Contraindication: N/A - Med Ordered
[2022-12-12] MEDS: Benzonatate 100 MG CAPSULE PO ×3 (11:10→22:12)
[2022-12-12 11:30] LABS: Glucose, Whole Blood 298 mg/dL (60-115)
[2022-12-12] MEDS: cefTRIAXone sodium 1 GM in 0.9 % Sodium Chloride 50 ML IV (13:44)
[2022-12-12 15:30] LABS: Glucose, Whole Blood 300 mg/dL (60-115)
[2022-12-12 20:19] LABS: Glucose, Whole Blood 237 mg/dL (60-115)
[2022-12-13] VITALS (16 sets, daily range): BP systolic 125–150; BP diastolic 58–74; PULSE 60–88; RESP 16–20; TEMP 35.9–37.2; O2SAT 94–100
[2022-12-13] MEDS: Albuterol/Iprat 2.5/0.5MG 3 ML AMPUL.NEB INHALE ×6 (00:18→18:45)
[2022-12-13] MEDS: methylPREDNISolone Sod Succ 40 MG/ML VIAL IVPUSH ×3 (03:45→20:03)
[2022-12-13] MEDS: 0.9 % Sodium Chloride Flush 3 ML SYRINGE IVFLUSH ×3 (03:45→20:06)
[2022-12-13] MEDS: oxyCODONE HCl Immed Release 5 MG TABLET 10 MG PO ×3 (04:12→20:04)
[2022-12-13] MEDS: Omeprazole 20 MG CAPSULE.DR PO (05:47)
[2022-12-13 07:19] LABS: Glucose, Whole Blood 227 mg/dL (60-115)
[2022-12-13] MEDS: Enoxaparin Sodium 40 MG/0.4 ML SYRINGE SUBCUT (08:28)
[2022-12-13] MEDS: lamoTRIgine 25 MG TABLET PO ×2 (08:29→20:04)
[2022-12-13] MEDS: Ezetimibe 10 MG TABLET PO (08:29)
[2022-12-13] MEDS: Ascorbic Acid 500 MG TABLET PO (08:29)
[2022-12-13] MEDS: Cholecalciferol (Vitamin D3) 25 MCG TABLET 50 MCG PO (08:29)
[2022-12-13] MEDS: lisinopriL 5 MG TABLET PO (08:29)
[2022-12-13] MEDS: Insulin Lispro 100 UNIT/ML 3 ML VIAL SUBCUT ×4 (08:29→20:04)
[2022-12-13] MEDS: Atorvastatin Calcium 80 MG TABLET PO (08:29)
[2022-12-13] MEDS: amLODIPine Besylate 5 MG TABLET PO (08:29)
[2022-12-13] MEDS: Benzonatate 100 MG CAPSULE PO ×3 (08:29→20:04)
--- NOTE | 2022-12-13 09:09 | HO.PM.IMPN ---
Subjective Subjective Date of Service: 12/13/22 Interval History: f/u on copd exacerbation interval history: cough is better, still sob but overall better Physical Exam Vital Signs: Vital Signs: Last Vital Signs Temp 98.3 F 12/13/22 07:37 Pulse 63 12/13/22 07:51 Resp 20 12/13/22 07:52 BP 143/68 H 12/13/22 07:37 Pulse Ox 99 12/13/22 07:37 O2 Del Method High Flow Nasal C annula 12/13/22 07:37 O2 Flow Rate 31.8 12/13/22 07:37 FiO2 40 12/13/22 07:37 BMI result Body Mass Index 23.5 Const: Other: General: AO X 3, no acute distress Resp: no wheezing, accessory muscle use CVS: S1,S2,RRR GI: +BS, NT, no distention Skin: No rash Neuro: motor grossly intact Psych: appropriate affect Objective Data Active Medications Albuterol/Ipratropium (Albuterol/Iprat 2.5/0.5mg 3 Ml Ampul.Neb) 3 ml INHALE RQ4H [facility] Last Admin: 12/13/22 07:50 Dose: 3 ml Documented By: CLINTON Amlodipine Besylate (Amlodipine Besylate 5 Mg Tablet) 5 mg PO DAILY [facility]; Protocol Last Admin: 12/13/22 08:29 Dose: 5 mg Documented By: CARLOS Ascorbic Acid (Ascorbic Acid 500 Mg Tablet) 500 mg PO DAILY [facility] Last Admin: 12/13/22 08:29 Dose: 500 mg Documented By: CARLOS Atorvastatin Calcium (Atorvastatin Calcium 80 Mg Tablet) 80 mg PO DAILY [facility] Last Admin: 12/13/22 08:29 Dose: 80 mg Documented By: CARLOS Benzonatate (Benzonatate 100 Mg Capsule) 100 mg PO TID [facility] Last Admin: 12/13/22 08:29 Dose: 100 mg Documented By: CARLOS Carvedilol (Carvedilol 6.25 Mg Tablet) 6.25 mg PO BID [facility]; Protocol Last Admin: 12/13/22 08:23 Dose: Not Given Documented By: CARLOS Non-Admin Reason: per Dextrose (Dextrose 50 % 25 Gm/50 Ml Syringe) 25 gm IVPUSH Q15M PRN; Protocol PRN Reason: per Hypoglycemia Standing Ord. Ezetimibe (Ezetimibe 10 Mg Tablet) 10 mg PO DAILY [facility] Last Admin: 12/13/22 08:29 Dose: 10 mg Documented By: CARLOS Enoxaparin Sodium (Enoxaparin Sodium 40 Mg/0.4 Ml Syringe) 40 mg SUBCUT Q24H [facility] Last Admin: 12/13/22 08:28 Dose: 40 mg Documented By: CARLOS Glucose (Glucose Gel 15 Gm Gel..Gram.) 15 gm PO Q15M PRN; Protocol PRN Reason: per Hypoglycemia Standing Ord. Guaifenesin (Guaifenesin 100 Mg/5 Ml Liquid) 5 ml PO Q4H PRN PRN Reason: Consult order Last Admin: 12/12/22 08:17 Dose: 5 ml Documented By: CARLOS Ceftriaxone Sodium 1 gm/ (Sodium Chloride) 50 mls @ 100 mls/hr IV Q24H [facility] Last Infusion: 12/12/22 14:14 Dose: 0 mls/hr Documented By: CARLOS Insulin Human Lispro (Insulin Lispro 100 Unit/Ml 3 Ml Vial) 0 unit SUBCUT QIDACHS [facility]; Protocol Last Admin: 12/13/22 08:29 Dose: 4 unit Documented By: CARLOS Lamotrigine (Lamotrigine 25 Mg Tablet) 25 mg PO BID [facility] Last Admin: 12/13/22 08:29 Dose: 25 mg Documented By: CARLOS Lisinopril (Lisinopril 5 Mg Tablet) 5 mg PO DAILY [facility]; Protocol Last Admin: 12/13/22 08:29 Dose: 5 mg Documented By: CARLOS Methylprednisolone Sodium Succinate (Methylprednisolone Sod Succ 40 Mg/Ml Vial) 40 mg IVPUSH Q8H [facility] Last Admin: 12/13/22 03:45 Dose: 40 mg Documented By: KAMERON Morphine Sulfate (Morphine Sulfate 2 Mg/Ml Cartridge) 2 mg IVPUSH Q4H PRN; Protocol PRN Reason: Pain, Severe (Pain Scale 7-10) Last Admin: 12/11/22 10:11 Dose: 2 mg Documented By: CARLOS Omeprazole (Omeprazole 20 Mg Capsule.) 20 mg PO DAILY@0630 [facility] Last Admin: 12/13/22 05:47 Dose: 20 mg Documented By: KAMERON Oxycodone HCl (Oxycodone Hcl Immed Release 5 Mg Tablet) 10 mg PO Q4H PRN PRN Reason: Pain, Severe (Pain Scale 7-10) Last Admin: 12/13/22 04:12 Dose: 10 mg Documented By: KAMERON Pharmacy Consult (Consult Rx Perform Med Rec) 1 each MISCELLANE ONCE PRN PRN Reason: Consult order Sodium Chloride (0.9 % Sodium Chloride Flush 3 Ml Syringe) 3 ml IVFLUSH QSHIFT [facility] Last Admin: 12/13/22 08:30 Dose: 3 ml Documented By: CARLOS Vitamin D (Cholecalciferol (Vitamin D3) 25 Mcg Tablet) 50 mcg PO DAILY [facility] Last Admin: 12/13/22 08:29 Dose: 50 mcg Documented By: CARLOS Labs 12/10/22 07:03 12/10/22 07:04 Labs: Laboratory Results - last 24 hr 12/12/22 12/12/22 12/12/22 11:22 15:09 20:04 POC Glucose 298 H 300 H 237 H 12/13/22 07:09 POC Glucose 227 H Assessment and Plan (1) COPD exacerbation: Status: Acute (2) Acute hypoxemic respiratory failure: Status: Acute (3) Asthma with exacerbation: Status: Acute Plan 77-year-old male with past medical history?CAD post CABG, heart failure, diabetes, stroke, CKD, COPD, CVA, hypertension, hyperlipidemia and chronic back pain who?presented to the ED?for shortness of breath. ?Acute hypoxemic respiratory failure secondary to COPD exacerbation, required bipap in ed, he continues to need high flow but will wean as tolerated continue nebs, iv steroid. Pulmonolary consult noted, if not improving, consider cardiac ischemic work up. Wean off high flow. robitussin + and tessalon for cough CAD s/p CABG:continue home meds. see below cva section. Hypertension: continue lisinopril,amlodipine, hold coreg for now due to copd excerebation. Diabetes: ISS and POC ACHS, hold home metformin Continue home Farxiga ifpossible. History of CVA: Continue with aspirin, statin, Plavix Hyperlipidemia: Continue with atorvastatin, ezetimibe . ?thrombocytopenia : platlet is better dvt prophylax:lovenox need for inpatient: acute hyppox on high flow Time Spent With Patient Time: Total time managing care of this patient today ____ minutes. Quality Stroke Does the patient have a stroke diagnosis?: Yes Reason for No Anti-thrombotic by Day Two: N/A - Med Ordered VTE Prior VTE?: No VTE Risk Level:: Medical - moderate - high VTE Device Contraindication: N/A - Device Ordered VTE Drug Contraindication: N/A - Med Ordered
--- NOTE | 2022-12-13 10:15 | MHC.CM.PN ---
Per ROUNDS discussion, Patient is still on high flow O2 and is not yet medically cleared for dc. Patient would benefit from a PT eval to assist with disposition. CM will follow.
[2022-12-13 11:23] LABS: Glucose, Whole Blood 274 mg/dL (60-115)
[2022-12-13] MEDS: cefTRIAXone sodium 1 GM in 0.9 % Sodium Chloride 50 ML IV (14:55)
[2022-12-13] MEDS: guaiFENesin 100 MG/5 ML LIQUID PO ×2 (16:16→20:03)
[2022-12-13 16:19] LABS: Glucose, Whole Blood 234 mg/dL (60-115)
[2022-12-13 19:15] LABS: Glucose, Whole Blood 250 mg/dL (60-115)
[2022-12-13] MEDS: carvediloL 6.25 MG TABLET PO (20:04)
[2022-12-14] VITALS (11 sets, daily range): BP systolic 122–143; BP diastolic 60–72; PULSE 61–81; RESP 15–22; TEMP 36.2–36.8; O2SAT 95–99
[2022-12-14] MEDS: Albuterol/Iprat 2.5/0.5MG 3 ML AMPUL.NEB INHALE ×5 (00:54→18:42)
[2022-12-14] MEDS: methylPREDNISolone Sod Succ 40 MG/ML VIAL IVPUSH (03:50)
[2022-12-14] MEDS: Omeprazole 20 MG CAPSULE.DR PO (05:36)
[2022-12-14 07:56] LABS: Glucose, Whole Blood 264 mg/dL (60-115)
[2022-12-14] MEDS: Insulin Lispro 100 UNIT/ML 3 ML VIAL SUBCUT ×4 (08:14→21:23)
[2022-12-14] MEDS: Enoxaparin Sodium 40 MG/0.4 ML SYRINGE SUBCUT (08:14)
[2022-12-14] MEDS: carvediloL 6.25 MG TABLET PO ×2 (08:16→19:50)
[2022-12-14] MEDS: 0.9 % Sodium Chloride Flush 3 ML SYRINGE IVFLUSH ×3 (08:16→19:51)
[2022-12-14] MEDS: amLODIPine Besylate 5 MG TABLET PO (08:16)
[2022-12-14] MEDS: Benzonatate 100 MG CAPSULE PO ×3 (08:16→19:49)
[2022-12-14] MEDS: lisinopriL 5 MG TABLET PO (08:16)
[2022-12-14] MEDS: Ezetimibe 10 MG TABLET PO (08:17)
[2022-12-14] MEDS: Ascorbic Acid 500 MG TABLET PO (08:17)
[2022-12-14] MEDS: Cholecalciferol (Vitamin D3) 25 MCG TABLET 50 MCG PO (08:17)
[2022-12-14] MEDS: Atorvastatin Calcium 80 MG TABLET PO (08:17)
[2022-12-14] MEDS: lamoTRIgine 25 MG TABLET PO ×2 (08:17→19:49)
[2022-12-14] MEDS: guaiFENesin 100 MG/5 ML LIQUID PO ×2 (08:20→19:49)
--- NOTE | 2022-12-14 10:15 | P.PNIM_ITS ---
Subjective Subjective Date of Service: 12/14/22 Interval History: f/u on copd exacerbation interval history: cough is better, O2 signficantly better, Off high flow Physical Exam Vital Signs: Vital Signs: Last Vital Signs Temp 97.1 F 12/14/22 07:08 Pulse 79 12/14/22 07:41 Resp 18 12/14/22 07:41 BP 122/69 12/14/22 07:08 Pulse Ox 99 12/14/22 07:08 O2 Del Method Nasal Cannula 12/14/22 07:08 O2 Flow Rate 3.5 12/14/22 07:08 FiO2 40 12/13/22 11:42 BMI result Body Mass Index 23.5 Const: Other: General: AO X 3, no acute distress Resp: no wheezing, accessory muscle use CVS: S1,S2,RRR GI: +BS, NT, no distention Skin: No rash Neuro: motor grossly intact Psych: appropriate affect Objective Data Active Medications Albuterol/Ipratropium (Albuterol/Iprat 2.5/0.5mg 3 Ml Ampul.Neb) 3 ml INHALE RQ4H [facility] Last Admin: 12/14/22 07:40 Dose: 3 ml Documented By: CLINTON Amlodipine Besylate (Amlodipine Besylate 5 Mg Tablet) 5 mg PO DAILY [facility]; Protocol Last Admin: 12/14/22 08:16 Dose: 5 mg Documented By: JOSE MARIA Ascorbic Acid (Ascorbic Acid 500 Mg Tablet) 500 mg PO DAILY [facility] Last Admin: 12/14/22 08:17 Dose: 500 mg Documented By: JOSE MARIA Atorvastatin Calcium (Atorvastatin Calcium 80 Mg Tablet) 80 mg PO DAILY [facility] Last Admin: 12/14/22 08:17 Dose: 80 mg Documented By: JOSE MARIA Benzonatate (Benzonatate 100 Mg Capsule) 100 mg PO TID [facility] Last Admin: 12/14/22 08:16 Dose: 100 mg Documented By: JOSE MARIA Carvedilol (Carvedilol 6.25 Mg Tablet) 6.25 mg PO BID [facility]; Protocol Last Admin: 12/14/22 08:16 Dose: 6.25 mg Documented By: JOSE MARIA Dextrose (Dextrose 50 % 25 Gm/50 Ml Syringe) 25 gm IVPUSH Q15M PRN; Protocol PRN Reason: per Hypoglycemia Standing Ord. Ezetimibe (Ezetimibe 10 Mg Tablet) 10 mg PO DAILY [facility] Last Admin: 12/14/22 08:17 Dose: 10 mg Documented By: JOSE MARIA Enoxaparin Sodium (Enoxaparin Sodium 40 Mg/0.4 Ml Syringe) 40 mg SUBCUT Q24H [facility] Last Admin: 12/14/22 08:14 Dose: 40 mg Documented By: JOSE MARIA Glucose (Glucose Gel 15 Gm Gel..Gram.) 15 gm PO Q15M PRN; Protocol PRN Reason: per Hypoglycemia Standing Ord. Guaifenesin (Guaifenesin 100 Mg/5 Ml Liquid) 5 ml PO Q4H PRN PRN Reason: Consult order Last Admin: 12/14/22 08:20 Dose: 5 ml Documented By: JOSE MARIA Ceftriaxone Sodium 1 gm/ (Sodium Chloride) 50 mls @ 100 mls/hr IV Q24H [facility] Last Infusion: 12/13/22 15:28 Dose: 0 mls/hr Documented By: CARLOS Insulin Human Lispro (Insulin Lispro 100 Unit/Ml 3 Ml Vial) 0 unit SUBCUT QIDACHS [facility]; Protocol Last Admin: 12/14/22 08:14 Dose: 6 unit Documented By: JOSE MARIA Lamotrigine (Lamotrigine 25 Mg Tablet) 25 mg PO BID [facility] Last Admin: 12/14/22 08:17 Dose: 25 mg Documented By: JOSE MARIA Lisinopril (Lisinopril 5 Mg Tablet) 5 mg PO DAILY [facility]; Protocol Last Admin: 12/14/22 08:16 Dose: 5 mg Documented By: JOSE MARIA Methylprednisolone Sodium Succinate (Methylprednisolone Sod Succ 40 Mg/Ml Vial) 40 mg IVPUSH Q8H [facility] Last Admin: 12/14/22 03:50 Dose: 40 mg Documented By: BEAR Morphine Sulfate (Morphine Sulfate 2 Mg/Ml Cartridge) 2 mg IVPUSH Q4H PRN; Protocol PRN Reason: Pain, Severe (Pain Scale 7-10) Last Admin: 12/11/22 10:11 Dose: 2 mg Documented By: CARLOS Omeprazole (Omeprazole 20 Mg Capsule.Dr) 20 mg PO DAILY@0630 [facility] Last Admin: 12/14/22 05:36 Dose: 20 mg Documented By: BEAR Oxycodone HCl (Oxycodone Hcl Immed Release 5 Mg Tablet) 10 mg PO Q4H PRN PRN Reason: Pain, Severe (Pain Scale 7-10) Last Admin: 12/13/22 20:04 Dose: 10 mg Documented By: BEAR Pharmacy Consult (Consult Rx Perform Med Rec) 1 each MISCELLANE ONCE PRN PRN Reason: Consult order Sodium Chloride (0.9 % Sodium Chloride Flush 3 Ml Syringe) 3 ml IVFLUSH QSHIFT [facility] Last Admin: 12/14/22 08:16 Dose: 3 ml Documented By: JOSE MARIA Vitamin D (Cholecalciferol (Vitamin D3) 25 Mcg Tablet) 50 mcg PO DAILY [facility] Last Admin: 12/14/22 08:17 Dose: 50 mcg Documented By: JOSE MARIA Labs 12/10/22 07:03 12/10/22 07:04 Labs: Laboratory Results - last 24 hr 12/13/22 12/13/22 12/13/22 11:18 16:16 19:11 POC Glucose 274 H 234 H 250 H 12/14/22 07:24 POC Glucose 264 H Assessment and Plan (1) COPD (chronic obstructive pulmonary disease): Status: Acute (2) COPD exacerbation: Status: Acute (3) Acute hypoxemic respiratory failure: Status: Acute (4) Asthma with exacerbation: Status: Acute Plan 77-year-old male with past medical history?CAD post CABG, heart failure, diabetes, stroke, CKD, COPD, CVA, hypertension, hyperlipidemia and chronic back pain who?presented to the ED?for shortness of breath. ?Acute hypoxemic respiratory failure secondary to COPD exacerbation, required bipap in ed, weaned of high flow change to oral Prednisone, tesalon+robitusin for cough, anticipate dc tomorrow CAD s/p CABG:continue home meds. see below cva section. Hypertension: continue lisinopril,amlodipine, hold coreg for now due to copd excerebation. Diabetes: ISS and POC ACHS, hold home metformin Continue home Farxiga ifpossible. History of CVA: Continue with aspirin, statin, Plavix Hyperlipidemia: Continue with atorvastatin, ezetimibe . ?thrombocytopenia : platlet is better dvt prophylax:lovenox need for inpatient: acute hyppox on high flow, anticipate dc tomorrow Time Spent With Patient Time: Total time managing care of this patient today ____ minutes. Quality Stroke Does the patient have a stroke diagnosis?: Yes Reason for No Anti-thrombotic by Day Two: N/A - Med Ordered VTE Prior VTE?: No VTE Risk Level:: Medical - moderate - high VTE Device Contraindication: N/A - Device Ordered VTE Drug Contraindication: N/A - Med Ordered
[2022-12-14 11:12] LABS: Glucose, Whole Blood 245 mg/dL (60-115)
[2022-12-14] MEDS: oxyCODONE HCl Immed Release 5 MG TABLET 10 MG PO ×2 (11:22→18:19)
[2022-12-14 15:44] LABS: Glucose, Whole Blood 155 mg/dL (60-115)
[2022-12-14] MEDS: cefTRIAXone sodium 1 GM in 0.9 % Sodium Chloride 50 ML IV (16:41)
[2022-12-14 20:33] LABS: Glucose, Whole Blood 222 mg/dL (60-115)
[2022-12-15] VITALS (12 sets, daily range): BP systolic 95–128; BP diastolic 54–72; PULSE 61–78; RESP 18–20; TEMP 35.6–36.8; O2SAT 92–98
[2022-12-15] MEDS: Albuterol/Iprat 2.5/0.5MG 3 ML AMPUL.NEB INHALE ×6 (00:14→23:44)
[2022-12-15] MEDS: Omeprazole 20 MG CAPSULE.DR PO (06:02)
[2022-12-15 07:43] LABS: Glucose, Whole Blood 164 mg/dL (60-115)
[2022-12-15] MEDS: lisinopriL 5 MG TABLET PO (07:50)
[2022-12-15] MEDS: Ascorbic Acid 500 MG TABLET PO (07:50)
[2022-12-15] MEDS: Cholecalciferol (Vitamin D3) 25 MCG TABLET 50 MCG PO (07:50)
[2022-12-15] MEDS: Atorvastatin Calcium 80 MG TABLET PO (07:50)
[2022-12-15] MEDS: lamoTRIgine 25 MG TABLET PO ×2 (07:50→19:56)
[2022-12-15] MEDS: Ezetimibe 10 MG TABLET PO (07:50)
[2022-12-15] MEDS: Benzonatate 100 MG CAPSULE PO ×3 (07:50→19:56)
[2022-12-15] MEDS: predniSONE 20 MG TABLET 40 MG PO (07:51)
[2022-12-15] MEDS: amLODIPine Besylate 5 MG TABLET PO (07:51)
[2022-12-15] MEDS: Furosemide 40 MG/4 ML VIAL IVPUSH (07:51)
[2022-12-15] MEDS: Enoxaparin Sodium 40 MG/0.4 ML SYRINGE SUBCUT (07:51)
[2022-12-15] MEDS: carvediloL 6.25 MG TABLET PO ×2 (07:51→19:55)
[2022-12-15] MEDS: oxyCODONE HCl Immed Release 5 MG TABLET 10 MG PO ×3 (07:52→19:56)
[2022-12-15] MEDS: Insulin Lispro 100 UNIT/ML 3 ML VIAL SUBCUT ×4 (07:55→21:14)
[2022-12-15] MEDS: 0.9 % Sodium Chloride Flush 3 ML SYRINGE IVFLUSH ×3 (07:57→19:56)
--- NOTE | 2022-12-15 09:21 | HO.PM.IMPN ---
Subjective Subjective Date of Service: 12/15/22 Interval History: f/u on copd exacerbation interval history: Was sob last night and wheezing this morning Physical Exam Vital Signs: Vital Signs: Last Vital Signs Temp 97.6 F 12/15/22 07:35 Pulse 78 12/15/22 07:35 Resp 20 12/15/22 07:35 BP 128/72 12/15/22 07:35 Pulse Ox 92 12/15/22 07:35 O2 Del Method Nasal Cannula 12/15/22 07:35 O2 Flow Rate 3 12/15/22 07:35 FiO2 40 12/13/22 11:42 BMI result Body Mass Index 23.5 Const: Other: General: AO X 3, no acute distress Resp: marquis wheezing, accessory muscle use CVS: S1,S2,RRR GI: +BS, NT, no distention Skin: No rash Neuro: motor grossly intact Psych: appropriate affect Objective Data Active Medications Albuterol/Ipratropium (Albuterol/Iprat 2.5/0.5mg 3 Ml Ampul.Neb) 3 ml INHALE RQ4H [facility] Last Admin: 12/15/22 07:32 Dose: 3 ml Documented By: CLINTON Amlodipine Besylate (Amlodipine Besylate 5 Mg Tablet) 5 mg PO DAILY [facility]; Protocol Last Admin: 12/15/22 07:51 Dose: 5 mg Documented By: MELISSA Ascorbic Acid (Ascorbic Acid 500 Mg Tablet) 500 mg PO DAILY [facility] Last Admin: 12/15/22 07:50 Dose: 500 mg Documented By: MELISSA Atorvastatin Calcium (Atorvastatin Calcium 80 Mg Tablet) 80 mg PO DAILY [facility] Last Admin: 12/15/22 07:50 Dose: 80 mg Documented By: MELISSA Benzonatate (Benzonatate 100 Mg Capsule) 100 mg PO TID [facility] Last Admin: 12/15/22 07:50 Dose: 100 mg Documented By: MELISSA Carvedilol (Carvedilol 6.25 Mg Tablet) 6.25 mg PO BID [facility]; Protocol Last Admin: 12/15/22 07:51 Dose: 6.25 mg Documented By: MELISSA Dextrose (Dextrose 50 % 25 Gm/50 Ml Syringe) 25 gm IVPUSH Q15M PRN; Protocol PRN Reason: per Hypoglycemia Standing Ord. Ezetimibe (Ezetimibe 10 Mg Tablet) 10 mg PO DAILY [facility] Last Admin: 12/15/22 07:50 Dose: 10 mg Documented By: MELISSA Enoxaparin Sodium (Enoxaparin Sodium 40 Mg/0.4 Ml Syringe) 40 mg SUBCUT Q24H [facility] Last Admin: 12/15/22 07:51 Dose: 40 mg Documented By: MELISSA Glucose (Glucose Gel 15 Gm Gel..Gram.) 15 gm PO Q15M PRN; Protocol PRN Reason: per Hypoglycemia Standing Ord. Guaifenesin (Guaifenesin 100 Mg/5 Ml Liquid) 5 ml PO Q4H PRN PRN Reason: Consult order Last Admin: 12/14/22 19:49 Dose: 5 ml Documented By: BEAR Ceftriaxone Sodium 1 gm/ (Sodium Chloride) 50 mls @ 100 mls/hr IV Q24H [facility] Last Infusion: 12/14/22 17:42 Dose: 0 mls/hr Documented By: JOSE MARIA Insulin Human Lispro (Insulin Lispro 100 Unit/Ml 3 Ml Vial) 0 unit SUBCUT QIDACHS [facility]; Protocol Last Admin: 12/15/22 07:55 Dose: 2 unit Documented By: MELISSA Lamotrigine (Lamotrigine 25 Mg Tablet) 25 mg PO BID [facility] Last Admin: 12/15/22 07:50 Dose: 25 mg Documented By: MELISSA Lisinopril (Lisinopril 5 Mg Tablet) 5 mg PO DAILY [facility]; Protocol Last Admin: 12/15/22 07:50 Dose: 5 mg Documented By: MELISSA Morphine Sulfate (Morphine Sulfate 2 Mg/Ml Cartridge) 2 mg IVPUSH Q4H PRN; Protocol PRN Reason: Pain, Severe (Pain Scale 7-10) Last Admin: 12/11/22 10:11 Dose: 2 mg Documented By: CARLOS Omeprazole (Omeprazole 20 Mg Capsule.) 20 mg PO DAILY@0630 [facility] Last Admin: 12/15/22 06:02 Dose: 20 mg Documented By: BEAR Oxycodone HCl (Oxycodone Hcl Immed Release 5 Mg Tablet) 10 mg PO Q4H PRN PRN Reason: Pain, Severe (Pain Scale 7-10) Last Admin: 12/15/22 07:52 Dose: 10 mg Documented By: MELISSA Pharmacy Consult (Consult Rx Perform Med Rec) 1 each MISCELLANE ONCE PRN PRN Reason: Consult order Prednisone (Prednisone 20 Mg Tablet) 40 mg PO DAILY [facility] [place] Last Admin: 12/15/22 07:51 Dose: 40 mg Documented By: MELISSA Sodium Chloride (0.9 % Sodium Chloride Flush 3 Ml Syringe) 3 ml IVFLUSH QSHIFT [facility] Last Admin: 12/15/22 07:57 Dose: 3 ml Documented By: MELISSA Vitamin D (Cholecalciferol (Vitamin D3) 25 Mcg Tablet) 50 mcg PO DAILY [facility] Last Admin: 12/15/22 07:50 Dose: 50 mcg Documented By: MELISSA Labs 12/10/22 07:03 12/10/22 07:04 Labs: Laboratory Results - last 24 hr 12/14/22 12/14/22 12/14/22 11:04 15:14 20:28 POC Glucose 245 H 155 H 222 H 12/15/22 07:39 POC Glucose 164 H Microbiology Microbiology Results: Microbiology 12/09/22 11:44 Blood Culture - Final Blood - Venous No growth after 5 days. 12/09/22 10:56 Blood Culture - Final Blood - Venous No growth after 5 days. Assessment and Plan (1) COPD (chronic obstructive pulmonary disease): Status: Acute (2) COPD exacerbation: Status: Acute (3) Acute hypoxemic respiratory failure: Status: Acute (4) Asthma with exacerbation: Status: Acute Plan 77-year-old male with past medical history?CAD post CABG, heart failure, diabetes, stroke, CKD, COPD, CVA, hypertension, hyperlipidemia and chronic back pain who?presented to the ED?for shortness of breath. ?Acute hypoxemic respiratory failure secondary to COPD exacerbation, required bipap in ed, weaned of high flow was on solumedrol, changed to Po prednisone 12/14, tesalon+robitusin for cough, CAD s/p CABG:continue home meds. see below cva section. Hypertension: continue lisinopril,amlodipine, hold coreg for now due to copd excerebation. Diabetes: ISS and POC ACHS, hold home metformin Continue home Farxiga ifpossible. History of CVA: Continue with aspirin, statin, Plavix Hyperlipidemia: Continue with atorvastatin, ezetimibe . ?thrombocytopenia : platlet is better dvt prophylax:lovenox need for inpatient: acute hyppox on high flow, anticipate dc tomorrow Time Spent With Patient Time: Total time managing care of this patient today ____ minutes. Quality Stroke Does the patient have a stroke diagnosis?: Yes Reason for No Anti-thrombotic by Day Two: N/A - Med Ordered VTE Prior VTE?: No VTE Risk Level:: Medical - moderate - high VTE Device Contraindication: N/A - Device Ordered VTE Drug Contraindication: N/A - Med Ordered
[2022-12-15] MEDS: guaiFENesin 100 MG/5 ML LIQUID PO ×2 (09:36→14:18)
[2022-12-15 11:42] LABS: Glucose, Whole Blood 223 mg/dL (60-115)
[2022-12-15] MEDS: cefTRIAXone sodium 1 GM in 0.9 % Sodium Chloride 50 ML IV (14:21)
[2022-12-15 15:55] LABS: Glucose, Whole Blood 217 mg/dL (60-115)
[2022-12-15 20:38] LABS: Glucose, Whole Blood 364 mg/dL (60-115)
[2022-12-16] VITALS (11 sets, daily range): BP systolic 102–135; BP diastolic 56–63; PULSE 45–80; RESP 16–20; TEMP 36.1–36.8; O2SAT 93–99
[2022-12-16] MEDS: Albuterol/Iprat 2.5/0.5MG 3 ML AMPUL.NEB INHALE ×5 (04:30→18:53)
[2022-12-16] MEDS: Morphine Sulfate 2 MG/ML CARTRIDGE IVPUSH (05:07)
--- NOTE | 2022-12-16 05:26 | PC.NURSE ---
assumed care 23:15...awake..alert..oriented x3..no distress with room air..restful overnight...previously received duoneb updraft approx 04:30...awoke 5am sob and marked expiratory wheezes....o2 placed 3 l/m for sob...c/o chronic low back pain and sob...prn morphine 2 mg iv given with improvement in symptoms...dr guerrero updated...to give prednisone as previously scheduled...restful at present
[2022-12-16] MEDS: Omeprazole 20 MG CAPSULE.DR PO (05:38)
[2022-12-16 07:40] LABS: Glucose, Whole Blood 206 mg/dL (60-115)
[2022-12-16] MEDS: Insulin Lispro 100 UNIT/ML 3 ML VIAL SUBCUT ×4 (07:55→21:43)
[2022-12-16] MEDS: 0.9 % Sodium Chloride Flush 3 ML SYRINGE IVFLUSH ×3 (07:55→21:52)
[2022-12-16] MEDS: Cholecalciferol (Vitamin D3) 25 MCG TABLET 50 MCG PO (07:58)
[2022-12-16] MEDS: Benzonatate 100 MG CAPSULE PO ×3 (07:58→21:44)
[2022-12-16] MEDS: predniSONE 20 MG TABLET 40 MG PO (07:58)
[2022-12-16] MEDS: Atorvastatin Calcium 80 MG TABLET PO (07:58)
[2022-12-16] MEDS: amLODIPine Besylate 5 MG TABLET PO (07:58)
[2022-12-16] MEDS: Ezetimibe 10 MG TABLET PO (07:58)
[2022-12-16] MEDS: Ascorbic Acid 500 MG TABLET PO (07:58)
[2022-12-16] MEDS: lisinopriL 5 MG TABLET PO (07:58)
[2022-12-16] MEDS: lamoTRIgine 25 MG TABLET PO ×2 (07:58→21:44)
[2022-12-16] MEDS: Enoxaparin Sodium 40 MG/0.4 ML SYRINGE SUBCUT (07:58)
--- NOTE | 2022-12-16 09:57 | HO.PM.IMPN ---
Subjective Subjective Date of Service: 12/16/22 Interval History: f/u on copd exacerbation interval history: felt a bit more sob, O2 sat is better on room air Physical Exam Vital Signs: Vital Signs: Last Vital Signs Temp 97.6 F 12/16/22 07:30 Pulse 45 L 12/16/22 07:46 Resp 16 12/16/22 07:46 BP 116/63 12/16/22 07:30 Pulse Ox 99 12/16/22 07:30 O2 Del Method Nasal Cannula 12/16/22 07:30 O2 Flow Rate 4 12/16/22 07:30 FiO2 40 12/13/22 11:42 BMI result Body Mass Index 23.5 Const: Other: General: AO X 3, no acute distress Resp: marquis wheezing, accessory muscle use CVS: S1,S2,RRR GI: +BS, NT, no distention Skin: No rash Neuro: motor grossly intact Psych: appropriate affect Objective Data Active Medications Albuterol/Ipratropium (Albuterol/Iprat 2.5/0.5mg 3 Ml Ampul.Neb) 3 ml INHALE RQ4H [facility] Last Admin: 12/16/22 07:45 Dose: 3 ml Documented By: SARAH Amlodipine Besylate (Amlodipine Besylate 5 Mg Tablet) 5 mg PO DAILY [facility]; Protocol Last Admin: 12/16/22 07:58 Dose: 5 mg Documented By: NOHEMI Ascorbic Acid (Ascorbic Acid 500 Mg Tablet) 500 mg PO DAILY [facility] Last Admin: 12/16/22 07:58 Dose: 500 mg Documented By: NOHEMI Atorvastatin Calcium (Atorvastatin Calcium 80 Mg Tablet) 80 mg PO DAILY [facility] Last Admin: 12/16/22 07:58 Dose: 80 mg Documented By: NOHEMI Benzonatate (Benzonatate 100 Mg Capsule) 100 mg PO TID [facility] Last Admin: 12/16/22 07:58 Dose: 100 mg Documented By: NOHEMI Carvedilol (Carvedilol 6.25 Mg Tablet) 6.25 mg PO BID [facility]; Protocol Last Admin: 12/16/22 07:51 Dose: Not Given Documented By: NOHEMI Non-Admin Reason: Decreased Heart Rate Dextrose (Dextrose 50 % 25 Gm/50 Ml Syringe) 25 gm IVPUSH Q15M PRN; Protocol PRN Reason: per Hypoglycemia Standing Ord. Ezetimibe (Ezetimibe 10 Mg Tablet) 10 mg PO DAILY [facility] Last Admin: 12/16/22 07:58 Dose: 10 mg Documented By: NOHEMI Enoxaparin Sodium (Enoxaparin Sodium 40 Mg/0.4 Ml Syringe) 40 mg SUBCUT Q24H [facility] Last Admin: 12/16/22 07:58 Dose: 40 mg Documented By: NOHEMI Glucose (Glucose Gel 15 Gm Gel..Gram.) 15 gm PO Q15M PRN; Protocol PRN Reason: per Hypoglycemia Standing Ord. Guaifenesin (Guaifenesin 100 Mg/5 Ml Liquid) 5 ml PO Q4H PRN PRN Reason: Consult order Last Admin: 12/15/22 14:18 Dose: 5 ml Documented By: MELISSA Ceftriaxone Sodium 1 gm/ (Sodium Chloride) 50 mls @ 100 mls/hr IV Q24H [facility] Last Infusion: 12/15/22 14:55 Dose: 0 mls/hr Documented By: MELISSA Insulin Human Lispro (Insulin Lispro 100 Unit/Ml 3 Ml Vial) 0 unit SUBCUT QIDACHS [facility]; Protocol Last Admin: 12/16/22 07:55 Dose: 4 unit Documented By: NOHEMI Lamotrigine (Lamotrigine 25 Mg Tablet) 25 mg PO BID [facility] Last Admin: 12/16/22 07:58 Dose: 25 mg Documented By: NOHEMI Lisinopril (Lisinopril 5 Mg Tablet) 5 mg PO DAILY [facility]; Protocol Last Admin: 12/16/22 07:58 Dose: 5 mg Documented By: NOHEMI Omeprazole (Omeprazole 20 Mg Capsule.) 20 mg PO DAILY@0630 [facility] Last Admin: 12/16/22 05:38 Dose: 20 mg Documented By: KATYA Oxycodone HCl (Oxycodone Hcl Immed Release 5 Mg Tablet) 10 mg PO Q4H PRN PRN Reason: Pain, Severe (Pain Scale 7-10) Last Admin: 12/15/22 19:56 Dose: 10 mg Documented By: BEAR Pharmacy Consult (Consult Rx Perform Med Rec) 1 each MISCELLANE ONCE PRN PRN Reason: Consult order Prednisone (Prednisone 20 Mg Tablet) 40 mg PO DAILY [facility] Last Admin: 12/16/22 07:58 Dose: 40 mg Documented By: NOHEMI Sodium Chloride (0.9 % Sodium Chloride Flush 3 Ml Syringe) 3 ml IVFLUSH QSHIFT [facility] Last Admin: 12/16/22 07:55 Dose: 3 ml Documented By: NOHEMI Vitamin D (Cholecalciferol (Vitamin D3) 25 Mcg Tablet) 50 mcg PO DAILY [facility] Last Admin: 12/16/22 07:58 Dose: 50 mcg Documented By: NOHEMI Labs 12/10/22 07:03 12/10/22 07:04 Labs: Laboratory Results - last 24 hr 12/15/22 12/15/22 12/15/22 11:35 15:38 20:31 POC Glucose 223 H 217 H 364 H* 12/16/22 07:33 POC Glucose 206 H Assessment and Plan (1) COPD (chronic obstructive pulmonary disease): Status: Acute (2) COPD exacerbation: Status: Acute Plan 77-year-old male with past medical history?CAD post CABG, heart failure, diabetes, stroke, CKD, COPD, CVA, hypertension, hyperlipidemia and chronic back pain who?presented to the ED?for shortness of breath. ?Acute hypoxemic respiratory failure secondary to COPD exacerbation, required bipap in ed, weaned of high flow was on solumedrol, changed to Po prednisone 12/14, tesalon+robitusin for cough, CAD s/p CABG:continue home meds. see below cva section. Hypertension: continue lisinopril,amlodipine, hold coreg for now due to copd excerebation. Diabetes: ISS and POC ACHS, hold home metformin Continue home Farxiga ifpossible. History of CVA: Continue with aspirin, statin, Plavix Hyperlipidemia: Continue with atorvastatin, ezetimibe . ?thrombocytopenia : platlet is better dvt prophylax:lovenox need for inpatient: acute hyppox on high flow, anticipate dc tomorrow ambulate and if maitain O2 sat will discharge Time Spent With Patient Time: Total time managing care of this patient today ____ minutes. Quality Stroke Does the patient have a stroke diagnosis?: Yes Reason for No Anti-thrombotic by Day Two: N/A - Med Ordered VTE Prior VTE?: No VTE Risk Level:: Medical - moderate - high VTE Device Contraindication: N/A - Device Ordered VTE Drug Contraindication: N/A - Med Ordered
[2022-12-16] MEDS: oxyCODONE HCl Immed Release 5 MG TABLET 10 MG PO (10:50)
[2022-12-16 11:41] LABS: Glucose, Whole Blood 224 mg/dL (60-115)
--- NOTE | 2022-12-16 11:43 | MHC.CM.PN ---
Patient is not yet medically cleared for dc (SOB, 4L O2); Patient may benefit from a PT Eval to assist with disposition. CM will follow.
[2022-12-16] MEDS: cefTRIAXone sodium 1 GM in 0.9 % Sodium Chloride 50 ML IV (14:30)
[2022-12-16 16:27] LABS: Glucose, Whole Blood 288 mg/dL (60-115)
[2022-12-16 19:50] LABS: Glucose, Whole Blood 345 mg/dL (60-115)
[2022-12-16] MEDS: carvediloL 6.25 MG TABLET PO (21:44)
[2022-12-16 21:56] LABS: Glucose, Whole Blood 378 mg/dL (60-115)
[2022-12-16] MEDS: oxyCODONE HCl Immed Release 5 MG TABLET PO (22:17)
[2022-12-17 03:11] VITALS: BP 121/63; PULSE 62; RESP 20; TEMP 37.4; O2SAT 99
[2022-12-17] MEDS: oxyCODONE HCl Immed Release 5 MG TABLET PO ×2 (03:15→07:44)
[2022-12-17] MEDS: Omeprazole 20 MG CAPSULE.DR PO (06:15)
[2022-12-17 07:12] LABS: Glucose, Whole Blood 183 mg/dL (60-115)
[2022-12-17 07:18] VITALS: BP 125/61; PULSE 58; RESP 20; TEMP 36.5; O2SAT 99
[2022-12-17] MEDS: guaiFENesin 100 MG/5 ML LIQUID PO (07:44)
[2022-12-17] MEDS: Atorvastatin Calcium 80 MG TABLET PO (07:46)
[2022-12-17] MEDS: Ezetimibe 10 MG TABLET PO (07:46)
[2022-12-17] MEDS: amLODIPine Besylate 5 MG TABLET PO (07:46)
[2022-12-17] MEDS: lamoTRIgine 25 MG TABLET PO (07:46)
[2022-12-17] MEDS: predniSONE 20 MG TABLET 40 MG PO (07:47)
[2022-12-17] MEDS: Ascorbic Acid 500 MG TABLET PO (07:47)
[2022-12-17] MEDS: Cholecalciferol (Vitamin D3) 25 MCG TABLET 50 MCG PO (07:47)
[2022-12-17] MEDS: lisinopriL 5 MG TABLET PO (07:47)
[2022-12-17] MEDS: Benzonatate 100 MG CAPSULE PO ×2 (07:47→13:58)
[2022-12-17] MEDS: 0.9 % Sodium Chloride Flush 3 ML SYRINGE IVFLUSH ×2 (07:50→13:59)
[2022-12-17] MEDS: Insulin Lispro 100 UNIT/ML 3 ML VIAL SUBCUT ×2 (07:50→12:07)
[2022-12-17] MEDS: Enoxaparin Sodium 40 MG/0.4 ML SYRINGE SUBCUT (07:50)
[2022-12-17] MEDS: carvediloL 6.25 MG TABLET PO (09:45)
[2022-12-17 11:18] LABS: Glucose, Whole Blood 285 mg/dL (60-115)
[2022-12-17 11:51] VITALS: BP 109/59; PULSE 60; RESP 20; TEMP 37.1; O2SAT 95
[2022-12-17 12:08] VITALS: PULSE 70; PULSE 80; O2SAT 95; O2SAT 96
--- NOTE | 2022-12-17 12:10 | PC.RT ---
pt completed his home O2 eval and ambulated for a total of 6 minutes with no incidents. pt currently was sating 95% on RA at rest and was sating 96% while ambulating. pt does not qualify for oxygen at this time. no resp distress noticed during examination.
[2022-12-17] MEDS: oxyCODONE HCl Immed Release 5 MG TABLET 10 MG PO (13:58)
[2022-12-17] MEDS: cefTRIAXone sodium 1 GM in 0.9 % Sodium Chloride 50 ML IV (13:59)
--- NOTE | 2022-12-17 14:00 | P.DS_ITS ---
DS: Providers Provider Date of Service: 12/17/22 Date of admission: 12/09/22 17:17 Primary care physician: Leticia Foster NP Consults: 12/11/22 08:17 Consult to Pulmonology Routine Consulting Provider: [facility] Reason for consultation: severe copd exa, advise on further management DS: Diagnosis Discharge Diagnosis (1) COPD (chronic obstructive pulmonary disease): Status: Acute (2) COPD exacerbation: Status: Acute (3) Acute hypoxemic respiratory failure: Status: Acute DS: Summary Hospital Course Hospital Course: Admission note HPI 77-year-old male with past medical history?CAD post CABG, heart failure, diabetes, stroke, CKD, COPD( ex smoker quit 10 years ago-but used to smoke 2 packs/day for many years), CVA, hypertension, hyperlipidemia and chronic back pain who?presented to the ED?for shortness of breath.? He says that he was doing fine until yesterday evening and then he started having short of breath and wheezing-he says that he rarely uses the albuterol, so shortness of breath progressively got worse and came to the hospital.? Patient denies any chest pain or any dizziness or palpitations during this time.? He has cough but nonproductive. He says that it difficult to breathe when he came hour having wheezing also somewhat, but after breathing treatments and BiPAP-he is feeling much better still, still requiring high-flow. He said he was admitted to the [facility] a month ago for question of syncope, otherwise denies any travel or any DVT or PE . Hospital course The kilo was admitted for treatment of hypoxic respiratory failure requiring bipap at presentation and prolonged treatment with steroids, nebulizers, magnesium sulphate, antibiotics and oxygen as he was placed on highflow oxygen for most part of his hospital stay, weaned down gradually to room air during treatment course. weaned down to room air and was evaluated for home oxygen by RT who did not found to need it. To be discharged on tapering dose of steroids. duoneb w nebulizer and to start budesonide\formoterol inhalor. Continue Prednisone Cough medications Use inhalors as prescribed To use nebulizer every 6 hours for the next week then as needed Follow with PCP as outpatient Time Spent with Patient Time attestation: Total time managing care of this patient today ____ minutes. Discharge coordination time: Greater than 30 minutes Quality: Safe Use of Opioids Does Pt have an Active Cancer Diagnosis on the Problem List?: No Quality: Stroke Does the patient have a stroke diagnosis?: No Physical Exam Vital Signs: Vital Signs: Last Vital Signs Temp 98.8 F 12/17/22 11:51 Pulse 60 12/17/22 11:51 Resp 20 12/17/22 11:51 BP 109/59 L 12/17/22 11:51 Pulse Ox 95 12/17/22 11:51 O2 Del Method Room Air 12/17/22 11:51 O2 Flow Rate 4 12/16/22 11:22 FiO2 40 12/13/22 11:42 BMI result Body Mass Index 23.5 Const: Other: Constitutional : Awake, interactive, not in distress Neck : Normal inspection, Supple Cardiovascular : RRR, no JVP, no lower extremity edema Respiratory : good bilateral air entry, no crackles, bilateral fine scattered wheezes Gastrointestinal: soft, lax, Normal bowel sounds, Non tender Skin : Warm, Dry Neurological : Alert & oriented x3, No focal deficit DS: Data Data Completed and Pending Labs on day of discharge: Laboratory Results - last 24 hr 12/16/22 12/16/22 12/16/22 16:23 19:35 21:42 POC Glucose 288 H 345 H 378 H* 12/17/22 12/17/22 07:08 11:13 POC Glucose 183 H 285 H Imaging Chest x-ray: Radiologist's impression: ITS Impressions Chest X-Ray 12/09/22 11:22 IMPRESSION: Possible small bilateral pleural effusions. Chest CTA 12/09/22 15:58 IMPRESSION: 1. No evidence of PE. 2. No evidence of aortic aneurysm. 3. The lungs are clear. VTE: negative Discharge Plan Discharge Anticipated Discharge Date/Time: 12/17/22 13:46 Patient Disposition: Home Health Service Discharge Diagnosis: COPD Exacerbation Referrals: Melody LEE [Outside] - 1 Week Leticia Foster NP [Primary Care Provider] - 1 Week Discharge Medications: New guaifenesin 100 mg/5 mL Liquid 100 mg PO Q4H PRN (Reason: cough) Qty: 473 0RF benzonatate 100 mg Capsule 100 mg PO TID Qty: 21 0RF prednisone 10 mg tablet See Taper PO DIRECTED Qty: 30 0RF Taper: Prednisone 40 mg daily for 3 Days and 0 Hour 30 mg daily for 3 Days and 0 Hour 20 mg daily for 3 Days and 0 Hour 10 mg daily for 3 Days and 0 Hour Rx Instructions: see taper instructions ipratropium-albuterol 0.5 mg-3 mg(2.5 mg base)/3 mL solution for nebulization 3 ml inhalation Q6H PRN (Reason: shortness of breath or wheezing) Qty: 180 0RF (DME) nebulizers Misc See Rx Instructions .Route Qty: 1 0RF Rx Instructions: As directed budesonide-formoterol 80-4.5 mcg/actuation HFA aerosol inhaler 1 puff inhalation BID Qty: 10.2 1RF Continued metformin 500 mg tablet 500 mg PO BID atorvastatin 80 mg tablet 80 mg PO DAILY carvedilol 6.25 mg tablet 6.25 mg PO BID amlodipine 5 mg tablet 5 mg PO DAILY lamotrigine 25 mg tablet 25 mg PO BID ascorbic acid (vitamin C) [Vitamin C] 500 mg Tablet 500 mg PO DAILY pantoprazole 40 mg tablet,delayed release (DR/EC) 40 mg PO DAILY lisinopril 5 mg tablet 5 mg PO DAILY albuterol sulfate [Ventolin HFA] 90 mcg/actuation HFA aerosol inhaler 2 puff inhalation Q4H PRN (Reason: Shortness Of Breath Or Wheezing) ezetimibe 10 mg tablet 10 mg PO DAILY oxycodone 10 mg tablet 10 mg PO Q4H PRN (Reason: pain) cholecalciferol (vitamin D3) 50 mcg (2,000 unit) capsule 50 mcg PO DAILY Discharge Orders: Discharge Order (Routine); Ordered 12/17/22 Ordered By: Jamil Lino Diet: Advance to usual diet Activity on Discharge: As tolerated Stand Alone Forms: Patient Portal Discharge page Care Plan Goals: Read below Health Concerns: Read below Plan of Treatment: Read below Assessment: You were admitted for treatment of COPD exacerbation with IV steroids, nebulizers and antibiotics with good response over the course of hospital stay. Did not require Oxygen at time of discharge. Continue Prednisone Cough medications Use inhalors as prescribed To use nebulizer every 6 hours for the next week then as needed Follow with PCP as outpatient Discharge Date/Time: 12/17/22 16:10
--- NOTE | 2022-12-17 15:19 | P.F2F_ITS ---
Service Date Service Date: 12/17/22 Encounter Date of encounter: 12/17/22 Reasons for Services Signs and symptoms assessed: COPD exacerbation New Nebulizer Reason for residential: medication management and teach disease management Homebound: Leaving the home is medically contraindicated at this time without the asist of a device and/or another person due th the listed conditions above and below. Reason homebound: other (new nebulizer machine ) Certification: Based on the above findings, I certify that this patient is confined to the home and needs intermittent residential care, physical therapy and/or speech therapy, or continues to need occupational therapy. The patient is under my care, and I have initiated the establishment of the plan of care. The patient will be followed by a physician who will periodically review the plan of care. Time Spent With Patient Time: Total time managing care of this patient today ____ minutes.
--- NOTE | 2022-12-17 16:05 | MHC.CM.PN ---
Pt medically cleared for D/C home with new [facility] and resumption of [employer] [facility]. Pts family will transport.
== END 2022-12-17 16:10 | disposition home health service (06) | DRG 190 ==
LOC: HO.ED 14:02 → HO.EDOVER 17:23 → HO.IMC 12-10 13:16
PROVIDERS: Internal Medicine; Admitting Provider Internal Medicine; Emergency Provider Emergency Medicine; PCP Nurse Practitioner Family; Visit Provider Student in an Organized Health Care Education/Training Program
DX: J44.1 Chronic obstructive pulmonary disease with (acute) exacerbation (principal); J96.01 Acute respiratory failure with hypoxia; J45.901 Unspecified asthma with (acute) exacerbation; I13.0 Hypertensive heart and chronic kidney disease with heart failure and stage 1 through stage 4 chronic kidney disease, or unspecified chronic kidney disease; I50.9 Heart failure, unspecified; E11.22 Type 2 diabetes mellitus with diabetic chronic kidney disease; I25.10 Atherosclerotic heart disease of native coronary artery without angina pectoris; E78.5 Hyperlipidemia, unspecified; E11.65 Type 2 diabetes mellitus with hyperglycemia; D69.6 Thrombocytopenia, unspecified; Z95.1 Presence of aortocoronary bypass graft; Z86.73 Personal history of transient ischemic attack (TIA), and cerebral infarction without residual deficits; Z20.822 Contact with and (suspected) exposure to COVID-19; Z87.891 Personal history of nicotine dependence; Z79.84 Long term (current) use of oral hypoglycemic drugs; Z79.899 Other long term (current) drug therapy
CPT/HCPCS: 36415; 71045; 71275; 80048; 82803; 82947; 83605; 83880; 84484; 85025; 85027; 85610; 85730; 87040; 87502; 87633; 87635; 93005; 93306; 94640; 99285; J0456; J0696; J1650; J1940; J2270; J2920; J2930; J3475; Q9957; Q9967

== ENCOUNTER → 2022-12-09 10:45 | Outpatient (BNV) | payer MEDICARE, MEDICAID, SELFPAY | PROVIDERS: Emergency Provider Emergency Medicine; Visit Provider Internal Medicine Cardiovascular Disease | DX: R94.31 Abnormal electrocardiogram [ECG] [EKG] (principal) | CPT/HCPCS: 93010 ==

== ENCOUNTER 2022-12-09 17:17 | Outpatient (BNV) | payer MEDICARE, MEDICAID, SELFPAY | END 2022-12-11 07:00 | PROVIDERS: Admitting Provider Internal Medicine; Emergency Provider Emergency Medicine; Visit Provider Internal Medicine Cardiovascular Disease | DX: I50.9 Heart failure, unspecified (principal) | CPT/HCPCS: 93306 ==

== ENCOUNTER → 2022-12-09 17:17 | Outpatient (BNV) | payer MEDICARE, MEDICAID, SELFPAY | PROVIDERS: Admitting Provider Internal Medicine; Emergency Provider Emergency Medicine; Visit Provider Internal Medicine Pulmonary Disease | DX: J96.01 Acute respiratory failure with hypoxia (principal); J44.9 Chronic obstructive pulmonary disease, unspecified | CPT/HCPCS: 99232 ==

== ENCOUNTER → 2022-12-09 17:17 | Outpatient (BNV) | payer MEDICARE, MEDICAID, SELFPAY | PROVIDERS: Admitting Provider Internal Medicine; Emergency Provider Emergency Medicine; Visit Provider Internal Medicine | DX: J44.1 Chronic obstructive pulmonary disease with (acute) exacerbation (principal); J96.01 Acute respiratory failure with hypoxia | CPT/HCPCS: 99223; 99232; 99233; 99239; G0180 ==

== ENCOUNTER 2023-01-08 14:22 | Emergency (ER) | payer MEDICARE, MEDICAID, SELFPAY ==
--- NOTE | ~2023-01-08 | XR_ITS ---
EXAMINATION: XR CHEST CLINICAL INFORMATION: COPD, pneumonia. COMPARISON: 12/09/2022 chest radiograph. TECHNIQUE: Frontal view of the chest was obtained. FINDINGS: No significant abnormality is noted involving the heart, lungs, mediastinum, bony thorax or soft tissues. Multilevel sternotomy wires are intact. XR/XR chest 1V IMPRESSION: No acute cardiopulmonary process.
[2023-01-08 14:26] VITALS: BP 115/69; PULSE 100; O2SAT 100
[2023-01-08 14:29] VITALS: BP 129/62; PULSE 88; RESP 20; TEMP 36.8; O2SAT 96; BMI 25.3
--- NOTE | 2023-01-08 14:36 | ECG_ITS ---
Test Reason : SHORTNESS OF BREATH Blood Pressure : / mmHG Vent. Rate : 093 BPM Atrial Rate : 093 BPM P-R Int : 174 ms QRS Dur : 090 ms QT Int : 356 ms P-R-T Axes : 076 000 060 degrees QTc Int : 442 ms Normal sinus rhythm Septal infarct (cited on or before 23-OCT-2004) Abnormal ECG When compared with ECG of 09-DEC-2022 10:52, Nonspecific T wave abnormality has replaced inverted T waves in Anterior leads Referred By: Renee Rose Electronically Signed By:JORI LOPEZ
[2023-01-08] MEDS: methylPREDNISolone Sod Succ 125 MG/2 ML VIAL IVPUSH (14:51)
[2023-01-08] MEDS: Magnesium Sulfate/H2O 2 GM/50 ML PIGGYBACK IV (14:51)
--- NOTE | 2023-01-08 14:51 | ED_ITS ---
HPI - URI/Sore Throat General Chief Complaint: Upper Respiratory Symptoms Stated Complaint: COPD exacerbation per EMS Source: patient Mode of arrival: EMS Limitations: no limitations History of Present Illness HPI Narrative: Patient comes to the emergency room complaining of coughing and shortness of breath for couple of days. Patient is not oxygen dependent. Patient went to see his primary care physician. According to the staff, they reported to EMS that the oxygen was ?low? and he was put on 2 L of oxygen. Patient receive 1 nebulization treatment with albuterol. EMS gave the patient a neb treatment. O n arrival, patient states that he feels that he is breathing much better. However, still coughing, nonproductive. Patient denies fever chills, no chest pain. Related Data Home Medications Medication Instructions Recorded Confirmed albuterol sulfate 90 mcg/actuation 2 puff inhalation Q4H PRN 12/09/22 12/09/22 aerosol inhaler (Ventolin HFA) Shortness Of Breath Or Wheezing amlodipine 5 mg tablet 5 mg PO DAILY 12/09/22 12/09/22 ascorbic acid (vitamin C) 500 mg 500 mg PO DAILY 12/09/22 12/09/22 tablet (Vitamin C) atorvastatin 80 mg tablet 80 mg PO DAILY 12/09/22 12/09/22 carvedilol 6.25 mg tablet 6.25 mg PO BID 12/09/22 12/09/22 cholecalciferol (vitamin D3) 50 50 mcg PO DAILY 12/09/22 12/09/22 mcg (2,000 unit) capsule ezetimibe 10 mg tablet 10 mg PO DAILY 12/09/22 12/09/22 lamotrigine 25 mg tablet 25 mg PO BID 12/09/22 12/09/22 lisinopril 5 mg tablet 5 mg PO DAILY 12/09/22 12/09/22 metformin 500 mg tablet 500 mg PO BID 12/09/22 12/09/22 oxycodone 10 mg tablet 10 mg PO Q4H PRN pain 12/09/22 12/09/22 pantoprazole 40 mg tablet,delayed 40 mg PO DAILY 12/09/22 12/09/22 release Previous Rx's Medication Instructions Recorded benzonatate 100 mg capsule 100 mg PO TID #21 caps 12/17/22 budesonide-formoterol HFA 80 1 puff inhalation BID #10.2 grams 12/17/22 mcg-4.5 mcg/actuation aerosol inhaler guaifenesin 100 mg/5 mL oral liquid 100 mg (5 mL) PO Q4H PRN cough 12/17/22 #473 mL ipratropium 0.5 mg-albuterol 3 mg 3 ml inhalation Q6H PRN shortness 12/17/22 (2.5 mg base)/3 mL nebulization of breath or wheezing #180 mL soln nebulizers #1 ea 12/17/22 prednisone 10 mg tablet See Taper PO DIRECTED #30 tabs 12/17/22 azithromycin 250 mg tablet 250 mg PO DAILY 4 days #4 tabs 01/08/23 benzonatate 100 mg capsule 100 mg PO TID PRN cough #12 caps 01/08/23 cefuroxime axetil 500 mg tablet 500 mg PO BID #14 tabs 01/08/23 prednisone 50 mg tablet 50 mg PO DAILY #4 tabs 01/08/23 Allergies Allergy/AdvReac Type Severity Reaction Status Date / Time No Known Allergies Allergy Verified 12/09/22 10:45 Review of Systems Review of Systems: Constitutional : No Weight loss, No Fever, No Chills, No Night Sweats, No Fatigue, No Malaise ENT/Mouth : No Hearing loss, No Ear Pain, No Nasal Congestion, No Sinus Pain, No Hoarseness, No sore throat, No Rhinorrhea, No Swallowing Difficulty Eyes: No Eye Pain, No Swelling, No Redness, No Foreign Body, No Discharge, No Vision Changes Cardiovascular : No Chest Pain but complaining of chest tightness, distant exertion, no orthopnea Respiratory : Complaining of dry cough, wheezing, shortness of breath Gastrointestinal : No Nausea, No Vomiting, No Diarrhea, No Constipation, No abdominal Pain, No Hematochezia, No Melena Genitourinary : no irregular bleeding, No Dysuria, No Urinary Frequency, No Hematuria, No Urinary Incontinence, No Urgency, No Flank Pain, No Urinary Flow Changes, No Hesitancy Musculoskeletal : No joint pain, No Myalgias, No Joint Swelling Skin : No Skin Lesions, No rash Neuro : No Weakness, No Numbness, No Paresthesias, No Loss of Consciousness, No Dizziness, No Headache Psych : No Anxiety/Panic, No Depression, No SI/HI/AH/VH, No Social Issues, Heme/Lymph: No Bruising, No Bleeding,No Lymphadenopathy Endocrine : No Polyuria, No Polydipsia, No Temperature Intolerance COUNT INCLUDES THE [facility] Past Medical History Medical History (Updated 01/08/23 @ 20:04 by Renee Rose MD) CAD (coronary artery disease) CHF (congestive heart failure) COPD (chronic obstructive pulmonary disease) CVA (cerebral vascular accident) Hyperlipidemia Hypertension Type 2 diabetes mellitus Surgical History (Updated 01/08/23 @ 14:54 by Renee Rose MD) Hx of CABG Social History Social History Household Members: Family Housing: House Do you presently have visiting nurse or other home services: No Alcohol intake: never Patient Tobacco Use Status: Former Tobacco user Smoked in Last 30 Days: No Use of substances other than those prescribed or required for medical reasons: No Advance Directives: Yes Advance Directives on File: Yes Advance Directives Date on File: 12/10/22 service: No Physical Exam Vital Signs: Vital Signs: Last Vital Signs Temp 98.2 F 01/08/23 14:29 Pulse 90 01/08/23 16:01 Resp 28 H 01/08/23 16:01 BP 125/58 L 01/08/23 16:01 Pulse Ox 95 01/08/23 16:01 O2 Del Method Room Air 01/08/23 16:01 BMI result Body Mass Index 25.3 Const: Other: Appearance: Alert. Oriented X3. No acute distress. Eyes: Pupils equal, round and reactive to light. ENT: Pharynx normal. Neck: Normal inspection. Neck supple. No lymph nodes noted. No crepitus CVS: Normal heart rate and rhythm. Pulses normal. Normal S1 and S2 Respiratory: No respiratory distress, oxygen saturation 96% on room air, patient speaking full sentences, bilateral wheezing, patient actively coughing Abdomen: Soft and nontender. No rigidity. No distention. Skin: Skin warm and dry. Normal skin color. Normal skin turgor. Extremities: No lower extremity edema. No Lacerations. No Rash Neuro: Oriented X 3. No motor deficit. No sensory deficit. Moving all extremities. No slurred speech. CN 2 through 12 grossly intact Psych: calm, cooperative, normal affect Course Course Course Narrative: -patient receiving IV fluids, ceftriaxone, azithromycin, magnesium, and albut maggy treatment Medications Administered Discontinued Medications Generic Name Dose Route Start Last Admin Trade Name Adriana PRN Reason Stop Dose Admin Albuterol Sulfate 10 mg 01/08/23 14:38 01/08/23 15:18 Albuterol Sulfate (0.083%) 2.5 Mg/3 Ml Vial.Neb INHALE 01/08/23 14:39 10 mg ONCE ONE Administration Sodium Chloride 1,000 mls @ 999 mls/hr 01/08/23 14:36 01/08/23 17:57 Ns IVCONT 01/08/23 15:36 Infused .Q1H1M ONE Infusion Magnesium Sulfate 2 gm in 50 mls @ 25 mls/hr 01/08/23 14:38 01/08/23 15:58 Magnesium Sulfate/H2o IV 01/08/23 16:37 Infused ONCE ONE Infusion Ceftriaxone Sodium 1 gm/ 50 mls @ 100 mls/hr 01/08/23 14:38 01/08/23 16:05 Sodium Chloride IV 01/08/23 15:07 Infused ONCE ONE Infusion Azithromycin 500 mg/ Sodium 250 mls @ 125 mls/hr 01/08/23 14:38 01/08/23 17:57 Chloride IV 01/08/23 16:37 Infused ONCE ONE Infusion Methylprednisolone Sodium Succinate 125 mg 01/08/23 14:38 01/08/23 14:51 Methylprednisolone Sod Succ 125 Mg/2 Ml Vial IVPUSH 01/08/23 14:39 125 mg ONCE ONE Administration Medical Decision Making Medical Decision Making [facility] [place] Narrative: -my interpretation of labs: White blood cell count within normal limits, lactic normal, blood gases normal pCO2, COVID negative -my interpretation of chest x-ray: No pneumonia no infiltrates -patient was given IV ceftriaxone, azithromycin, Solu-Medrol, magnesium. Ov erall patient feeling much better, occasionally has coughing fits. Oxygen saturation steady 96% on room air. Patient was ambulated around the emergency room, oxygen between 95 and 97% without feeling short of breath. Also, patient given 1 dose of Tessalon Perles. Differential Diagnosis Differential Diagnoses: The differential diagnosis associated with the presentation includes (COPD, pneumonia, asthma) Admission/Observation Consideration of admission/observation: Escalation of care including admission/observation considered (On arrival, patient was wheezing, admission was considered) Lab Data [facility] [place] Lab Attestation statement: I reviewed the patient's lab results. 01/08/23 15:13 01/08/23 15:13 Labs: Lab Results 01/08/23 01/08/23 01/08/23 Range/Units 15:13 15:13 15:13 WBC 7.7 (4.8-10.8) X10*3/uL RBC 4.87 (4.60-5.80) X10*6/uL Hgb 14.2 (14.0-18.0) g/dl Hct 42.0 (42.0-52.0) % MCV 86.2 (80.0-98.0) fL MCH 29.2 (27.0-33.0) pg MCHC 33.8 (31.0-36.0) g/dl RDW 13.2 (11.0-16.0) % Plt Count 146 L (160-400) X10*3/uL MPV 11.2 (9.4-12.4) fL Immature Gran % (Auto) 0.5 H (0.0-0.4) % Neut % (Auto) 58.9 (45-73) % Lymph % (Auto) 25.0 (20-40) % Collier % (Auto) 12.9 H (2-11) % Eos % (Auto) 2.3 (0-4) % Baso % (Auto) 0.4 (0-2) % Lymph # (Auto) 1.9 (1.2-4.9) X10*3/uL Collier # (Auto) 1.0 (0.1-1.2) X10*3/uL Eos # (Auto) 0.2 (0.0-0.4) X10*3/uL Baso # (Auto) 0.0 (0.0-0.2) X10*3/uL Abs Immat Gran (auto) 0.04 H (0.00-0.03) X10*3/uL Absolute Neuts (auto) 4.5 (2.0-8.3) x10*3/uL Absolute Nucleated RBC 0.000 (0.0-0.012) X10*3/uL Nucleated RBC % (auto) 0.0 (0.0-0.2) /100WBC PT (11.1-13.3) SEC INR (0.9-1.1) VBG pH (7.32-7.43) VBG pCO2 mmHg VBG pO2 mmHg VBG HCO3 (22-26) mmol/L VBG O2 Saturation % VBG Base Excess mmol/L Sodium 137 (135-145) mmol/L Potassium 3.9 (3.3-5.1) mmol/L Chloride 103 (96-108) mmol/L Carbon Dioxide 24 (22-29) mmol/L Anion Gap 14 (12-20) BUN 12 (9-16) mg/dL Creatinine 1.03 (0.5-1.4) mg/dL Estim Creat Clear Calc 52.4 Estimated GFR > 60 Random Glucose 120 H (60-115) mg/dL Lactic Acid (0.5-2.0) mmol/L Calcium 9.3 (8.4-10.2) mg/dL Magnesium 2.3 (1.6-2.6) mg/dL Total Bilirubin 1.0 (0.0-1.0) mg/dL Direct Bilirubin 0.3 (0.0-0.5) mg/dL AST 18 (5-37) U/L ALT 27 (0-40) U/L Alkaline Phosphatase 89 (39-117) U/L Troponin I High Sens 8.4 (<3.5-35.0) ng/L B-Natriuretic Peptide (<100) pg/mL Total Protein 6.9 (6.5-8.0) g/dL Albumin 4.0 (3.5-5.0) g/dL COVID-19 (DANAE) (Negative) COVID-19 Clin Com 01/08/23 01/08/23 01/08/23 Range/Units 15:13 15:13 15:13 WBC (4.8-10.8) X10*3/uL RBC (4.60-5.80) X10*6/uL Hgb (14.0-18.0) g/dl Hct (42.0-52.0) % MCV (80.0-98.0) fL MCH (27.0-33.0) pg MCHC (31.0-36.0) g/dl RDW (11.0-16.0) % Plt Count (160-400) X10*3/uL MPV (9.4-12.4) fL Immature Gran % (Auto) (0.0-0.4) % Neut % (Auto) (45-73) % Lymph % (Auto) (20-40) % Collier % (Auto) (2-11) % Eos % (Auto) (0-4) % Baso % (Auto) (0-2) % Lymph # (Auto) (1.2-4.9) X10*3/uL Collier # (Auto) (0.1-1.2) X10*3/uL Eos # (Auto) (0.0-0.4) X10*3/uL Baso # (Auto) (0.0-0.2) X10*3/uL Abs Immat Gran (auto) (0.00-0.03) X10*3/uL Absolute Neuts (auto) (2.0-8.3) x10*3/uL Absolute Nucleated RBC (0.0-0.012) X10*3/uL Nucleated RBC % (auto) (0.0-0.2) /100WBC PT 11.2 (11.1-13.3) SEC INR 0.9 (0.9-1.1) VBG pH (7.32-7.43) VBG pCO2 mmHg VBG pO2 mmHg VBG HCO3 (22-26) mmol/L VBG O2 Saturation % VBG Base Excess mmol/L Sodium (135-145) mmol/L Potassium (3.3-5.1) mmol/L Chloride (96-108) mmol/L Carbon Dioxide (22-29) mmol/L Anion Gap (12-20) BUN (9-16) mg/dL Creatinine (0.5-1.4) mg/dL Estim Creat Clear Calc Estimated GFR Random Glucose (60-115) mg/dL Lactic Acid 1.6 (0.5-2.0) mmol/L Calcium (8.4-10.2) mg/dL Magnesium (1.6-2.6) mg/dL Total Bilirubin (0.0-1.0) mg/dL Direct Bilirubin (0.0-0.5) mg/dL AST (5-37) U/L ALT (0-40) U/L Alkaline Phosphatase (39-117) U/L Troponin I High Sens (<3.5-35.0) ng/L B-Natriuretic Peptide (<100) pg/mL Total Protein (6.5-8.0) g/dL Albumin (3.5-5.0) g/dL COVID-19 (DANAE) Negative (Negative) COVID-19 Clin Com See Note 01/08/23 01/08/23 Range/Units 15:13 15:14 WBC (4.8-10.8) X10*3/uL RBC (4.60-5.80) X10*6/uL Hgb (14.0-18.0) g/dl Hct (42.0-52.0) % MCV (80.0-98.0) fL MCH (27.0-33.0) pg MCHC (31.0-36.0) g/dl RDW (11.0-16.0) % Plt Count (160-400) X10*3/uL MPV (9.4-12.4) fL Immature Gran % (Auto) (0.0-0.4) % Neut % (Auto) (45-73) % Lymph % (Auto) (20-40) % Collier % (Auto) (2-11) % Eos % (Auto) (0-4) % Baso % (Auto) (0-2) % Lymph # (Auto) (1.2-4.9) X10*3/uL Collier # (Auto) (0.1-1.2) X10*3/uL Eos # (Auto) (0.0-0.4) X10*3/uL Baso # (Auto) (0.0-0.2) X10*3/uL Abs Immat Gran (auto) (0.00-0.03) X10*3/uL Absolute Neuts (auto) (2.0-8.3) x10*3/uL Absolute Nucleated RBC (0.0-0.012) X10*3/uL Nucleated RBC % (auto) (0.0-0.2) /100WBC PT (11.1-13.3) SEC INR (0.9-1.1) VBG pH 7.49 H (7.32-7.43) VBG pCO2 32 mmHg VBG pO2 66 mmHg VBG HCO3 24 (22-26) mmol/L VBG O2 Saturation 92.0 % VBG Base Excess 2.4 mmol/L Sodium (135-145) mmol/L Potassium (3.3-5.1) mmol/L Chloride (96-108) mmol/L Carbon Dioxide (22-29) mmol/L Anion Gap (12-20) BUN (9-16) mg/dL Creatinine (0.5-1.4) mg/dL Estim Creat Clear Calc Estimated GFR Random Glucose (60-115) mg/dL Lactic Acid (0.5-2.0) mmol/L Calcium (8.4-10.2) mg/dL Magnesium (1.6-2.6) mg/dL Total Bilirubin (0.0-1.0) mg/dL Direct Bilirubin (0.0-0.5) mg/dL AST (5-37) U/L ALT (0-40) U/L Alkaline Phosphatase (39-117) U/L Troponin I High Sens (<3.5-35.0) ng/L B-Natriuretic Peptide 58 (<100) pg/mL Total Protein (6.5-8.0) g/dL Albumin (3.5-5.0) g/dL COVID-19 (DANAE) (Negative) COVID-19 Clin Com Independent Interpretation I performed an independent interpretation of an: Plain X-Ray (My interpretation a chest x-ray, no pneumonia) Radiology Impression Discussion of test interpretation with radiology: I have reviewed the radiologist's reading. Radiologist Impression: No significant abnormality is noted involving the heart, lungs, mediastinum, bony thorax or soft tissues. Multilevel sternotomy wires are intact. XR/XR chest 1V IMPRESSION: No acute cardiopulmonary process. External Record Review External record reviewed: Inpatient record Patient was discharged from the hospital less than a month ago for respiratory failure require BiPAP. This time, patient does not have respiratory failure and is doing well ambulating on room air Chronic Conditions Patient?s care impacted by: Other (COPD) Critical Care Time Critical Care Time Critical Care Time: Yes Total Critical Care Time: 60 Attestation: I have personally provided critical care time. Time includes review of lab data, radiology results, discussion with consultants, and monitoring for potential decompensation. Intervention performed as documented. Discharge Plan Discharge Clinical Impression: Bronchitis, Chronic lung disease Patient Disposition: Home, Self-Care Instructions: Chronic Bronchitis (DC) Additional Instructions: Please follow-up with your primary care physician tomorrow. If you have any worsening or new symptoms, please return to the emergency room or call 911 Prescriptions: New cefuroxime axetil 500 mg tablet 500 mg PO BID Qty: 14 0RF azithromycin 250 mg tablet 250 mg PO DAILY 4 Days Qty: 4 0RF Rx Instructions: start on day 2 of therapy prednisone 50 mg tablet 50 mg PO DAILY Qty: 4 0RF benzonatate 100 mg capsule 100 mg PO TID PRN (Reason: cough) Qty: 12 0RF No Action metformin 500 mg tablet 500 mg PO BID atorvastatin 80 mg tablet 80 mg PO DAILY carvedilol 6.25 mg tablet 6.25 mg PO BID amlodipine 5 mg tablet 5 mg PO DAILY lamotrigine 25 mg tablet 25 mg PO BID ascorbic acid (vitamin C) [Vitamin C] 500 mg Tablet 500 mg PO DAILY pantoprazole 40 mg tablet,delayed release (DR/EC) 40 mg PO DAILY lisinopril 5 mg tablet 5 mg PO DAILY albuterol sulfate [Ventolin HFA] 90 mcg/actuation HFA aerosol inhaler 2 puff inhalation Q4H PRN (Reason: Shortness Of Breath Or Wheezing) ezetimibe 10 mg tablet 10 mg PO DAILY oxycodone 10 mg tablet 10 mg PO Q4H PRN (Reason: pain) cholecalciferol (vitamin D3) 50 mcg (2,000 unit) capsule 50 mcg PO DAILY guaifenesin 100 mg/5 mL Liquid 100 mg PO Q4H PRN (Reason: cough) Qty: 473 0RF benzonatate 100 mg Capsule 100 mg PO TID Qty: 21 0RF prednisone 10 mg tablet See Taper PO DIRECTED Qty: 30 0RF Taper: Prednisone 40 mg daily for 3 Days and 0 Hour 30 mg daily for 3 Days and 0 Hour 20 mg daily for 3 Days and 0 Hour 10 mg daily for 3 Days and 0 Hour Rx Instructions: see taper instructions ipratropium-albuterol 0.5 mg-3 mg(2.5 mg base)/3 mL solution for nebulization 3 ml inhalation Q6H PRN (Reason: shortness of breath or wheezing) Qty: 180 0RF (DME) nebulizers Misc See Rx Instructions .Route Qty: 1 0RF Rx Instructions: As directed budesonide-formoterol 80-4.5 mcg/actuation HFA aerosol inhaler 1 puff inhalation BID Qty: 10.2 1RF
--- OUTSIDE RECORDS SUMMARY | 2023-01-08 14:54 | XMS_ITS | Continuity of Care Document ---
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 Role Phone Kristin Leticia SIMS Primary Care Physician Encounter [facility] Date(s): 12/03/22 - 01/02/23 [facility] Adult [address] [place] [address]- Allergies, Adverse Reactions, Alerts Substance Reaction Severity Status Duloxetine 1 rash Active 1GI Immunizations Given and Recorded Vaccine Date Status Refusal Reason pneumococcal 20-valent conjugate vaccine 08/27/22 Recorded [id number] 12y+ bivalent booster vax 08/27/22 Recorded influenza [...] inactivated 6 08/01/10 Gi radha SARS-CoV-2 mRNA ([id number]) vax 7 06/29/21 Given SARS-CoV-2 (COVID-19) mRNA [...] (oldterm) 15 03/11/06 Given 1Result Comment: [facility]-[id number] 2Result Comment: [facility]: [id number] 3Result Comment: [02/28/2017] HD [facility]: [id number] [facility] 5Admin Note: VIS 12/18/2010 6Admin Note: VIS given 01/02/10 7Result Comment: [facility]-[id number] 8Admin Note: VIS 9Admin Note: VIS-GIVEN 10Admin Note: vis 03/03 11Result Comment: error 12Admin Note: hep A #1 13Admin Note: vis 01/01 14Admin Note: VIS 15Admin Note: vis-given Medications albuterol 90 mcg/inh inhalation powder 2 puffs = 180 mcg, Inhalation, Every 4 hours, PRN as needed, # 1 each, 0 Refills, Maintenance, 12/03/22 13:26:00 EDT, Powder, [facility] #[id number], 2 puffs Inhalation Every 4 hours,PRN:as needed, 168, cm, 11/21/22 9:25:00 EDT, Height, 75.2, kg,... Start Date: 12/03/22 Status: Ordered amLODIPine 5 mg oral tablet 1 tablet = 5 mg, By Mouth, Daily, # 90 tablet, 1 Refills, Maintenance, 10/07/22 21:43:00 EDT, Tablet, [facility] #[id number], 167.6, cm, 10/07/22 13:14:00 EDT, Height, 74, [...] tablet, 1 Refills, Maintenance, 10/07/22 21:43:00 EDT, [facility] #[id number], 167.6, cm, 10/07/22 13:14:00 EDT, Height, 74, kg, 04/06/22 1:20:00 EST, Dry Weight Start Date: 10/07/22 Status: Ordered Coreg 6.25 mg oral tablet 6.25 mg, 1, tablet, By Mouth, 2 times a day, # 60 tablet, Refills 0, Tot. Refills 0, Maintenance, 10/07/22 21:43:00 EDT, Route to Pharmacy Electronically, [facility] #[id number], 167.6, cm, 10/07/22 13:14:00 EDT, Height, 74, kg, 04/06/22 1:20:00... Start Date: 10/07/22 Status: Ordered ezetimibe 10 mg oral tablet 1 tablet = 10 mg, By Mouth, Daily, # 90 tablet, 1 Refills, Maintenance, 11/22/22 11:47:00 EDT, Tablet, [facility] #[id number], 168, cm, 11/21/22 9:25:00 EDT, Height, 75.2, kg, 11/09/22 22:57:00 EDT, Dry Weight Start Date: 11/22/22 Stop Date: 05/21/23 Status: Ordered Farxiga 10 mg oral tablet 1 tablet = 10 mg, By Mouth, Daily, Increased strength, # 30 tablet, 0 Refills, Maintenance, 01/16/22 9:53:00 EDT, Tablet, [facility] #[id number], Increased strength, 168, cm, 12/26/21 15:45:00 EDT, [...] 05/02/22 13:11:00 EST, Route to Pharmacy Electronically, [facility] #[id number], Partial fill upon patient request if the prescription is for a schedule... Start Date: 05/02/22 Stop Date: 10/29/22 Status: Ordered lisinopril 5 mg oral tablet 5 mg, 1, tablet, By Mouth, Daily, # 90 tablet, Refills 3, Tot. Refills 3, Maintenance, 03/10/22 22:37:00 EDT, Route to Pharmacy Electronically, [facility] #[id number], Partial fill upon patient request if the prescription is for a schedule II opi... Start Date: 03/10/22 Status: Ordered metFORMIN 500 mg oral tablet See Instructions, 1 tablet by mouth daily x 1 week then increase to 1 tablet 2 times a day, # 180 tablet, 0 Refills, Acute 01/19/23 12:00:00 EDT, 10/07/22 21:12:00 EDT, Tablet, [facility] #[id number], Partial fill upon patient request if the pres... Start Date: 10/07/22 Stop Date: 01/19/23 Status: Ordered nitroglycerin 0.3 mg sublingual tablet 1 tablet = 0.3 mg, Sublingual, Every 5 minutes, PRN as needed for chest pain, not to exceed 3 doses/15 min--if pain persists, seek medical attention, # 100 tablet, 0 Refills, Maintenance, 12/04/20 10:05:00 EDT, Tablet, [facility] #[id number], Par... Start Date: 12/04/20 Status: Ordered oxyCODONE 10 mg oral tablet 1 tablet = 10 mg, By Mouth, Every 4 hours, PRN as needed for pain, Ok to fill less than prescribed amount M48.061, M96.1, # 168 tablet, 0 Refills, Maintenance, 12/27/22 9:57:00 EDT, Tablet, [id number] #[id number], Partial fill upon patient requ... 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 [place] 4, 15surgery 1991 16MRI 2006 17possible ITP 18monitor 19Tubular adenoma 2014 Social History Social History Type Response Smoking Status Former smoker; Tobac co use times per day: smoked < 1/2 PPD; Started at age: 18; Stopped at age: 65; entered on: 12/23/13 Sex Patient Care team information Care Team Personnel Name: Philomena Castillo Position: S RN Supv Member Role: Primary Care Nurse Name: Leticia Foster NP Position: [facility] PCO Associate Professional Member Role: PCP Address: Address: [address] [place] [address]- Name: Namita Barajas RN Position: [facility] RN Member Role: Primary Care Nurse Name: Tasha Back RN Position: [facility] RN Member Role: Primary Care Nurse Name: Margarita Serrano RN Position: [facility] RN Member Role: Primary Care Nurse Name: Devin Benites RN Position: [facility] RN Member Role: Primary Care Nurse Name: Betsy Millan RN Position: [facility] RN Member Role: Primary Care Nurse Name: Peggy Jansen RN Position: [facility] RN Member Role: Primary Care Nurse Name: Cate Pabon RN Position: [facility] AMB Nurse Member Role: Primary Care Nurse Name: Janette Jones RN Position: [facility] RN Member Role: Primary Care Nurse Name: Deanne Hayes RN Position: [facility] RN Member Role: Primary Care Nurse Name: Vianney Mcneill RN Position: [facility] RN Member Role: Primary Care Nurse Name: Cindy Evans LPN Position: [facility] RN Member Role: Primary Care Nurse Care Team Related Persons Name: INGE MURRAY Address: home [address] [place] [address] Name: NIK BARTON Address: [place] [address]
--- OUTSIDE RECORDS SUMMARY | 2023-01-08 14:54 | XMS_ITS | Continuity of Care Document ---
Author Name Unknown Organization [facility] Anthony Sidney lt Address [address] [place] [address]- Care Team Providers Care Disease Intervention Specialist Name Role Phone Kristin Leticia SIMS Primary Care Physician [facility]counter [facility] Date(s): 11/21/22 - 12/21/22 [facility] Adult [address] [place] [address]- Allergies, Adverse Reactions, Alerts Substance Reaction Severity Status Duloxetine 1 rash Active 1GI Immunizations Given and Recorded Vaccine Date Status Refusal Reason pneumococcal 20-valent conjugate vaccine 08/27/22 Recorded [id number] 12y+ bivalent booster vax 08/27/22 Recorded influenza [...] inactivated 6 08/01/10 Gi radha SARS-CoV-2 mRNA (fucdids-gkfr-onjpk) vax 7 06/29/21 Given SARS-CoV-2 (COVID-19) mRNA [...] Vaccine (oldterm) 15 03/11/06 Given 1Result Comment: [facility]-[id number] 2Result Comment: [facility]: [id number] 3Result Comment: [02/28/2017] HD [facility]: [id number] [facility] 5Admin Note: VIS 12/18/2010 6Admin Note: VIS given 01/02/10 7Result Comment: [facility]-[id number] 8Admin Note: VIS 9Admin Note: VIS-GIVEN 10Admin Note: vis 03/03 11Result Comment: error 12Admin Note: hep A #1 13Admin Note: vis 01/01 14Admin Note: VIS 15Admin Note: vis-given Medications albuterol 90 mcg/inh inhalation powder 2 puffs = 180 mcg, Inhalation, Every 4 hours, PRN as needed, # 1 each, 0 Refills, Maintenance, 12/03/22 13:26:00 EDT, Powder, [facility] #[id number], 2 puffs Inhalation Every 4 hours,PRN:as needed, 168, cm, 11/21/22 9:25:00 EDT, Height, 75.2, kg,... Start Date: 12/03/22 Status: Ordered amLODIPine 5 mg oral tablet 1 tablet = 5 mg, By Mouth, Daily, # 90 tablet, 1 Refills, Maintenance, 10/07/22 21:43:00 EDT, Tablet, [facility] #[id number], 167.6, cm, 10/07/22 13:14:00 EDT, Height, 74, [...] tablet, 1 Refills, Maintenance, 10/07/22 21:43:00 EDT, [facility] #[id number], 167.6, cm, 10/07/22 13:14:00 EDT, Height, 74, kg, 04/06/22 1:20:00 EST, Dry Weight Start Date: 10/07/22 Status: Ordered Coreg 6.25 mg oral tablet 6.25 mg, 1, tablet, By Mouth, 2 times a day, # 60 tablet, Refills 0, Tot. Refills 0, Maintenance, 10/07/22 21:43:00 EDT, Route to Pharmacy Electronically, [facility] #[id number], 167.6, cm, 10/07/22 13:14:00 EDT, Height, 74, kg, 04/06/22 1:20:00... Start Date: 10/07/22 Status: Ordered ezetimibe 10 mg oral tablet 1 tablet = 10 mg, By Mouth, Daily, # 90 tablet, 1 Refills, Maintenance, 11/22/22 11:47:00 EDT, Tablet, [facility] #[id number], 168, cm, 11/21/22 9:25:00 EDT, Height, 75.2, kg, 11/09/22 22:57:00 EDT, Dry Weight Start Date: 11/22/22 Stop Date: 05/21/23 Status: Ordered Farxiga 10 mg oral tablet 1 tablet = 10 mg, By Mouth, Daily, Increased strength, # 30 tablet, 0 Refills, Maintenance, 01/16/22 9:53:00 EDT, Tablet, [facility] #[id number], Increased strength, 168, cm, 12/26/21 15:45:00 EDT, [...] 05/02/22 13:11:00 EST, Route to Pharmacy Electronically, [facility] #[id number], Partial fill upon patient request if the prescription is for a schedule... Start Date: 05/02/22 Stop Date: 10/29/22 Status: Ordered lisinopril 5 mg oral tablet 5 mg, 1, tablet, By Mouth, Daily, # 90 tablet, Refills 3, Tot. Refills 3, Maintenance, 03/10/22 22:37:00 EDT, Route to Pharmacy Electronically, [facility] #[id number], Partial fill upon patient request if the prescription is for a schedule II opi... Start Date: 03/10/22 Status: Ordered metFORMIN 500 mg oral tablet See Instructions, 1 tablet by mouth daily x 1 week then increase to 1 tablet 2 times a day, # 180 tablet, 0 Refills, Acute 01/19/23 12:00:00 EDT, 10/07/22 21:12:00 EDT, Tablet, [facility] #[id number], Partial fill upon patient request if the pres... Start Date: 10/07/22 Stop Date: 01/19/23 Status: Ordered nitroglycerin 0.3 mg sublingual tablet 1 tablet = 0.3 mg, Sublingual, Every 5 minutes, PRN as needed for chest pain, not to exceed 3 doses/15 min--if pain persists, seek medical attention, # 100 tablet, 0 Refills, Maintenance, 12/04/20 10:05:00 EDT, Tablet, [facility] #[id number], Par... Start Date: 12/04/20 Status: Ordered oxyCODONE 10 mg oral tablet 1 tablet = 10 mg, By Mouth, Every 4 hours, PRN as needed for pain, # 168 tablet, 0 Refills, Maintenance, 12/03/22 13:06:00 EDT, Tablet, [facility] #[id number], Partial fill upon patient request if the prescription is for a schedule II opioid drug... 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 [place] 4, 15surgery 1991 16MRI 2006 17possible ITP 18monitor 19Tubular adenoma 2014 Social History Social History Type Response Smoking Status Former smoker; Tobac co use times per day: smoked < 1/2 PPD; Started at age: 18; Stopped at age: 65; entered on: 12/23/13 Sex Patient Care team information Care Team Personnel Name: Philomena Castillo Position: [facility] RN Supv Member Role: Primary Care Nurse Name: Leticia Foster NP Position: [facility] PCO Associate Professional Member Role: PCP Address: Address: [address] [place] [address] [place] [address]- Name: Namita Barajas RN [facility] RN Member Role: Primary Care Nurse Name: Daenne Hayes RN Position: [facility] RN Member Role: Primary Care Nurse Name: Vianney Mcneill RN Position: [facility] RN Member Role: Primary Care Nurse Name: Cindy Evans LPN Position: [facility] RN Member Role: Primary Care Nurse Care Team Related Persons Name: INGE MURRAY Address: home [address] [place] [address] Name: NIK BARTON Address: [place] [address]
--- OUTSIDE RECORDS SUMMARY | 2023-01-08 14:57 | XMS_ITS | Continuity of Care Document ---
Author Name Unknown Organization [facility] Anthony [place] lt Address [address] [place] [address]- Care Team Providers Care Talent Development Specialist Name Role Phone Kristin Leticia SIMS Primary Care Physician [facility] Date[facility]s): 11/11/22 - 12/11/22 [facility] Adult [address] [place] [address]- Allergies, Adverse Reactions, Alerts Substance Reaction Severity Status Duloxetine 1 rash Active 1GI Immunizations Given and Recorded Vaccine Date Status Refusal Reason pneumococcal 20-valent conjugate vaccine 08/27/22 Recorded [id number] 12y+ bivalent booster vax 08/27/22 Recorded influenza [...] inactivated 6 08/01/10 Gi radha SARS-CoV-2 mRNA (dcocyuz-cyov-ybhcn) vax 7 06/29/21 Given SARS-CoV-2 (COVID-19) mRNA [...] Vaccine (oldterm) 15 03/11/06 Given 1Result Comment: [facility]-[id number] 2Result Comment: [facility]: [id number] 3Result Comment: [02/28/2017] HD [facility]: [id number] [facility] 5Admin Note: VIS 12/18/2010 6Admin Note: VIS given 01/02/10 7Result Comment: [facility]-[id number] 8Admin Note: VIS 9Admin Note: VIS-GIVEN 10Admin Note: vis 03/03 11Result Comment: error 12Admin Note: hep A #1 13Admin Note: vis 01/01 14Admin Note: VIS 15Admin Note: vis-given Medications albuterol 90 mcg/inh inhalation powder 2 puffs = 180 mcg, Inhalation, Every 4 hours, PRN as needed, # 1 each, 0 Refills, Maintenance, 12/03/22 13:26:00 EDT, Powder, [facility] #[id number], 2 puffs Inhalation Every 4 hours,PRN:as needed, 168, cm, 11/21/22 9:25:00 EDT, Height, 75.2, kg,... Start Date: 12/03/22 Status: Ordered amLODIPine 5 mg oral tablet 1 tablet = 5 mg, By Mouth, Daily, # 90 tablet, 1 Refills, Maintenance, 10/07/22 21:43:00 EDT, Tablet, [facility] #[id number], 167.6, cm, 10/07/22 13:14:00 EDT, Height, 74, [...] tablet, 1 Refills, Maintenance, 10/07/22 21:43:00 EDT, [facility] #[id number], 167.6, cm, 10/07/22 13:14:00 EDT, Height, 74, kg, 04/06/22 1:20:00 EST, Dry Weight Start Date: 10/07/22 Status: Ordered Coreg 6.25 mg oral tablet 6.25 mg, 1, tablet, By Mouth, 2 times a day, # 60 tablet, Refills 0, Tot. Refills 0, Maintenance, 10/07/22 21:43:00 EDT, Route to Pharmacy Electronically, [facility] #[id number], 167.6, cm, 10/07/22 13:14:00 EDT, Height, 74, kg, 04/06/22 1:20:00... Start Date: 10/07/22 Status: Ordered ezetimibe 10 mg oral tablet 1 tablet = 10 mg, By Mouth, Daily, # 90 tablet, 1 Refills, Maintenance, 11/22/22 11:47:00 EDT, Tablet, [facility] #[id number], 168, cm, 11/21/22 9:25:00 EDT, Height, 75.2, kg, 11/09/22 22:57:00 EDT, Dry Weight Start Date: 11/22/22 Stop Date: 05/21/23 Status: Ordered Farxiga 10 mg oral tablet 1 tablet = 10 mg, By Mouth, Daily, Increased strength, # 30 tablet, 0 Refills, Maintenance, 01/16/22 9:53:00 EDT, Tablet, [facility] #[id number], Increased strength, 168, cm, 12/26/21 15:45:00 EDT, [...] 05/02/22 13:11:00 EST, Route to Pharmacy Electronically, [facility] #[id number], Partial fill upon patient request if the prescription is for a schedule... Start Date: 05/02/22 Stop Date: 10/29/22 Status: Ordered lisinopril 5 mg oral tablet 5 mg, 1, tablet, By Mouth, Daily, # 90 tablet, Refills 3, Tot. Refills 3, Maintenance, 03/10/22 22:37:00 EDT, Route to Pharmacy Electronically, [facility] #[id number], Partial fill upon patient request if the prescription is for a schedule II opi... Start Date: 03/10/22 Status: Ordered metFORMIN 500 mg oral tablet See Instructions, 1 tablet by mouth daily x 1 week then increase to 1 tablet 2 times a day, # 180 tablet, 0 Refills, Acute 01/19/23 12:00:00 EDT, 10/07/22 21:12:00 EDT, Tablet, [facility] #[id number], Partial fill upon patient request if the pres... Start Date: 10/07/22 Stop Date: 01/19/23 Status: Ordered nitroglycerin 0.3 mg sublingual tablet 1 tablet = 0.3 mg, Sublingual, Every 5 minutes, PRN as needed for chest pain, not to exceed 3 doses/15 min--if pain persists, seek medical attention, # 100 tablet, 0 Refills, Maintenance, 12/04/20 10:05:00 EDT, Tablet, [facility] #[id number], Par... 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 [place] 4, 15surgery 1991 16MRI 2006 17possible ITP 18monitor 19Tubular adenoma 2014 Social History Social History Type Response Smoking Status Former smoker; Tobac co use times per day: smoked < 1/2 PPD; Started at age: 18; Stopped at age: 65; entered on: 12/23/13 Sex Patient Care team information Care Team Personnel Name: Philomena Castillo Position: [facility] RN Supv Member Role: Primary Care Nurse Name: Leticia Foster NP Position: [facility] PCO Associate Professional Member Role: PCP Address: Address: [address] [place] [address] [place] [address]- Name: Namita Barajas RN Position: [facility] RN Member Role: Primary Care Nurse Name: Tasha Back RN Position: [facility] RN Member Role: Primary Care Nurse Name: Margarita Serrano RN Position: [facility] RN Member Role: Primary Care Nurse Name: Devin Benites RN Position: [facility] RN Member Role: Primary Care Nurse Name: Betsy Millan RN Position: [facility] RN Member Role: Primary Care Nurse Name: Peggy Jansen RN Position: [facility] RN Member Role: Primary Care Nurse Name: Cate Pabon RN Position: [facility] AMB Nurse Member Role: Primary Care Nurse Name: Janette Jones RN Position: [facility] RN Member Role: Primary Care Nurse Name: Deanne Hayes RN Position: [facility] RN Member Role: Primary Care Nurse Name: Vianney Mcneill RN Position: [facility] RN Member Role: Primary Care Nurse Name: Cindy Evans LPN Position: [facility] RN Member Role: Primary Care Nurse Care Team Related Persons Name: INGE MURRAY Address: [address] [place] [address] Name: NIK BARTON Address: [place] [address]
[2023-01-08 15:18] VITALS: PULSE 91; RESP 25; O2SAT 94
[2023-01-08] MEDS: Albuterol Sulfate (0.083%) 2.5 MG/3 ML VIAL.NEB 10 MG INHALE (15:18)
[2023-01-08 15:20] LABS: MANUAL DIFF FLAG NO
[2023-01-08 15:22] LABS: Basophils Percent Auto 0.4 % (0-2); Eosinophils Absolute Auto 0.2 X10*3/uL (0.0-0.4); Eosinophils Percent Auto 2.3 % (0-4); Hemoglobin 14.2 g/dl (14.0-18.0); Imm Gran Abs Auto 0.04 X10*3/uL (0.00-0.03); Imm Gran Pct Auto 0.5 % (0.0-0.4); Lymphocytes Absolute Auto 1.9 X10*3/uL (1.2-4.9); Mean Corpuscular HGB Conc 33.8 g/dl (31.0-36.0); Mean Corpuscular Hemoglobin 29.2 pg (27.0-33.0); Mean Corpuscular Volume 86.2 fL (80.0-98.0); Mean Platelet Volume 11.2 fL (9.4-12.4); Monocytes Percent Auto 12.9 % (2-11); Neutrophils Absolute Auto 4.5 x10*3/uL (2.0-8.3); Neutrophils Percent Auto 58.9 % (45-73); Platelet Count 146 X10*3/uL (160-400); Red Blood Count 4.87 X10*6/uL (4.60-5.80); Red Cell Distribution Width 13.2 % (11.0-16.0); White Blood Count 7.7 X10*3/uL (4.8-10.8)
[2023-01-08 15:23] LABS: Venous Blood Gas Refer to POC result
[2023-01-08 15:23] LABS: VBG Base Excess 2.4 mmol/L; VBG HCO3 24 mmol/L (22-26); VBG pCO2 32 mmHg; VBG pH 7.49 (7.32-7.43); VBG pO2 66 mmHg
[2023-01-08] MEDS: cefTRIAXone sodium 1 GM in 0.9 % Sodium Chloride 50 ML IV (15:23)
[2023-01-08 15:29] LABS: INTERNATIONAL NORM RATIO 0.9 (0.9-1.1); Prothrombin Time 11.2 SEC (11.1-13.3)
[2023-01-08 15:33] LABS: Lactic Acid 1.6 mmol/L (0.5-2.0)
[2023-01-08 15:38] LABS: Alanine Aminotransferase 27 U/L (0-40); Alkaline Phosphatase 89 U/L (39-117); Anion Gap 14 (12-20); Aspartate Amino Transferase 18 U/L (5-37); Bilirubin Direct 0.3 mg/dL (0.0-0.5); Blood Urea Nitrogen 12 mg/dL (9-16); Calcium 9.3 mg/dL (8.4-10.2); Carbon Dioxide 24 mmol/L (22-29); Chloride 103 mmol/L (96-108); Creatinine Clr Calc Pharmacy 52.4; Estimated Glomerular Filt Rate > 60; Glucose Random 120 mg/dL (60-115); Magnesium 2.3 mg/dL (1.6-2.6); Potassium 3.9 mmol/L (3.3-5.1); Sodium 137 mmol/L (135-145); Total Protein 6.9 g/dL (6.5-8.0)
[2023-01-08 15:41] LABS: B Type Natriuretic Peptide 58 pg/mL (<100)
[2023-01-08 15:42] LABS: Troponin-I High Sensitivity 8.4 ng/L (<3.5-35.0)
[2023-01-08 15:54] LABS: COVID-19 Test Negative (Negative); IDNOW Serial# BCCEAD1C
[2023-01-08 15:55] VITALS: O2SAT 95
[2023-01-08] MEDS: Azithromycin 500 MG in 0.9 % Sodium Chloride 250 ML 125 MG IV (15:58)
[2023-01-08] MEDS: 0.9 % Sodium Chloride 1,000 ML 999 ML IVCONT (15:58)
[2023-01-08 16:01] VITALS: BP 125/58; PULSE 90; RESP 28; O2SAT 95
[2023-01-08] MEDS: Benzonatate 100 MG CAPSULE 200 MG PO (20:29)
[2023-01-08 20:31] VITALS: BP 123/66; PULSE 90; RESP 22; O2SAT 97
== END 2023-01-08 20:49 | disposition home or self-care (01) ==
PROVIDERS: Emergency Provider Emergency Medicine; PCP Nurse Practitioner Family
DX: R06.02 Shortness of breath (principal); J40 Bronchitis, not specified as acute or chronic; J44.1 Chronic obstructive pulmonary disease with (acute) exacerbation; I25.10 Atherosclerotic heart disease of native coronary artery without angina pectoris; R94.31 Abnormal electrocardiogram [ECG] [EKG]; Z20.822 Contact with and (suspected) exposure to COVID-19; Z20.828 Contact with and (suspected) exposure to other viral communicable diseases; Z79.899 Other long term (current) drug therapy; Z99.81 Dependence on supplemental oxygen
CPT/HCPCS: 36415; 71045; 80048; 80076; 82803; 83605; 83735; 83880; 84484; 85025; 85610; 87040; 87635; 93005; 94640; 99285; J0456; J0696; J2930; J3475

== ENCOUNTER 2023-05-02 11:47 | Inpatient (IN) | payer MEDICARE, OTHER, SELFPAY ==
--- NOTE | ~2023-05-02 | XR_ITS ---
EXAMINATION: XR CHEST CLINICAL INFORMATION: Pain COMPARISON: Previous chest x-ray December 2022 and chest CTA November 2022 TECHNIQUE: 2 views of the chest were obtained. FINDINGS: The cardiac and mediastinal contours are stable. There are post-CABG changes. Symmetric nodular densities at the lung bases likely representing nipple shadows. The lungs are otherwise clear. No pleural effusion or pneumothorax. Degenerative changes of the spine. XR/XR chest 2V IMPRESSION: Post-CABG changes. No evidence for acute disease in the chest.
[2023-05-02 11:50] VITALS: BP 159/87; PULSE 76; RESP 18; TEMP 36.2; O2SAT 98; BMI 28.4
--- NOTE | 2023-05-02 11:53 | ED_ITS ---
HPI - General Adult General Chief complaint: Upper Respiratory Symptoms Stated complaint: sob Time Seen by Provider: 05/02/23 16:26 Source: patient and RN notes reviewed Mode of arrival: ambulatory Limitations: no limitations History of Present Illness HPI narrative: This is a 78-year-old male with underlying history of CAD status post CABG, heart failure, diabetes mellitus, CKD, COPD, former 60+ pack-year smoker, quit 2012 admitted in November 2022, presenting to the ER with productive cough with clear sputum and shortness of breath x 3 days. Patient states that approximately 3 weeks ago he was seen by his primary care physician due to a cough, he was prescribed antibiotic and cough medicine, he states that he was feeling better up until 3 days ago. Patient states that 3 days ago he had noticed worsening cough, keeping him up at night. He states that he has had difficulty walking around due to increased shortness of breath. No fevers, chills, chest pain, palpitations, lower extremity swelling. No other complaints or concerns at this time. MD complaint: Cough, shortness of breath Onset (ago): day(s) Radiation: non-radiation Relieving factors: none Exacerbating factors: none Associated symptoms: denies other symptoms Treatments prior to arrival: none Related Data Home Medications Medication Instructions Recorded Confirmed albuterol sulfate 90 mcg/actuation 2 puff inhalation Q4H PRN 12/09/22 05/02/23 aerosol inhaler (Ventolin HFA) Shortness Of Breath Or Wheezing amlodipine 5 mg tablet 5 mg PO DAILY 12/09/22 05/02/23 ascorbic acid (vitamin C) 500 mg 500 mg PO DAILY 12/09/22 05/02/23 tablet (Vitamin C) atorvastatin 80 mg tablet 80 mg PO DAILY 12/09/22 05/02/23 carvedilol 6.25 mg tablet 6.25 mg PO BID 12/09/22 05/02/23 cholecalciferol (vitamin D3) 50 50 mcg PO DAILY 12/09/22 05/02/23 mcg (2,000 unit) capsule ezetimibe 10 mg tablet 10 mg PO DAILY 12/09/22 05/02/23 lamotrigine 25 mg tablet 25 mg PO BID 12/09/22 05/02/23 lisinopril 5 mg tablet 5 mg PO DAILY 12/09/22 05/02/23 metformin 500 mg tablet 500 mg PO BID 12/09/22 05/02/23 oxycodone 10 mg tablet 10 mg PO Q4H PRN pain 12/09/22 05/02/23 pantoprazole 40 mg tablet,delayed 40 mg PO DAILY 12/09/22 05/02/23 release ipratropium 0.5 mg-albuterol 3 mg 3 ml inhalation Q8H shortness of 05/02/23 05/02/23 (2.5 mg base)/3 mL nebulization breath or wheezing soln Previous Rx's Medication Instructions Recorded budesonide-formoterol HFA 80 1 puff inhalation BID #10.2 grams 12/17/22 mcg-4.5 mcg/actuation aerosol inhaler guaifenesin 100 mg/5 mL oral liquid 100 mg (5 mL) PO Q4H PRN cough 12/17/22 #473 mL nebulizers #1 ea 12/17/22 dextromethorphan-guaifenesin 5 5 ml PO Q4-8H PRN cough #237 mL 05/03/23 mg-100 mg/5 mL oral liquid (Robitussin Cough-Chest Congestion DM) prednisone 20 mg tablet 40 mg (2 x 20 mg) PO DAILY #6 tabs 05/03/23 Allergies Allergy/AdvReac Type Severity Reaction Status Date / Time No Known Allergies Allergy Verified 12/09/22 10:45 Review of Systems 2 Review of Systems: Yes all other systems are reviewed and are negative Constitutional: Constitutional: Reports as per [facility] Past Medical History Attestation statement: The following information was validated with the patient. Medical History CVA (cerebral vascular accident) Type 2 diabetes mellitus Hyperlipidemia Hypertension CHF (congestive heart failure) CAD (coronary artery disease) COPD (chronic obstructive pulmonary disease) Surgical History Hx of CABG Social History Social History Household Members: Family Housing: House Do you presently have visiting nurse or other home services: Yes Alcohol intake: never Patient Tobacco Use Status: Former Tobacco user Advance Directives Date on File: 12/10/22 service: No Physical Exam ED Vital Signs: Vital Signs - 24 hr 05/02/23 11:50 05/02/23 16:27 05/02/23 16:27 Temperature 97.2 F Pulse Rate 76 78 Respiratory Rate 18 19 Blood Pressure 159/87 H 138/73 Pulse Oximetry 98 97 97 Oxygen Delivery Method Room Air Room Air Room Air 05/02/23 17:26 05/02/23 18:41 05/02/23 20:34 Temperature Pulse Rate 76 72 75 Respiratory Rate 18 19 20 Blood Pressure 138/65 Pulse Oximetry 97 Oxygen Delivery Method Room Air 05/02/23 21:24 Temperature Pulse Rate 78 Respiratory Rate 24 H Blood Pressure 124/74 Pulse Oximetry 98 Oxygen Delivery Method Room Air BMI result Body Mass Index 28.4 Const General: cooperative, comfortable and no acute distress Orientation/consciousness: patient oriented x3 Limitations: no limitations HENMT Head: Yes normal to inspection, Yes normocephalic and Yes atraumatic Ears: hearing grossly normal bilaterally and TM's normal bilaterally General nose exam: Normal external nose present Face and sinus: Yes normal facial exam Mouth: Normal oral and palatal mucosa present, oropharynx normal and moist mucous membranes Throat: Yes posterior oropharynx normal Eyes General: appearance normal, both eyes and all related structures Eyelids: Yes eyelids normal Conjunctivae: conjunctivae normal Sclerae: sclerae normal Pupils: Equal, round and reactive pupils present EOM: EOMs intact bilaterally Neck Neck: Yes normal visual inspection, Yes full ROM and Yes no lymphadenopathy Lymphatic: no lymphadenopathy noted Chest Chest palpation & inspection: normal inspection of the chest Resp Other: Two word sentences due to shortness of breath. Lungs with inspiratory and expiratory wheezes, throughout all lung lainez. Rales heard throughout all lung lainez. Effort & Inspection: labored, tachypneic and prolonged expiratory phase Cardio Rate: regular rate Rhythm: regular rhythm Heart sounds: S1 normal heart sound present and S2 normal heart sound present GI Inspection: Yes normal to inspection Skin General skin exam: no rashes or lesions noted Trauma: no lacerations or abrasions Wounds: no wounds Neuro General: patient oriented x3 and moves all extremities Cranial nerves: Yes Equal, round and reactive pupils present Extrem Other: No lower extremity edema noted. General: Yes normal to inspection Right upper extremity: normal to inspection Left upper extremity: normal to inspection Right lower extremity: normal to inspection Left lower extremity: normal to inspection Course Course Course Narrative: RME- 78-year-old male presents for evaluation of cough, shortness of breath symptoms started few days ago, no fevers. Plan for chest x-ray, BNP, labs, viral swab Reevaluation(s) Reevaluation #1: Patient received updraft and Solu-Medrol 125, still short of breath, 2-3 word sentences, frequent cough heard. Lungs coarse with expiratory wheezing noted. Patient respiratory rate 24. Long discussion with patient in regards to discharging with steroids, updrafts. Patient states that he is very short of breath and is unable to get around due to the shortness of breath and coughing. He would feel more comfortable if he was able to stay in the hospital. Given failure of outpatient therapy and significant medical history I believe that this is warranted, but will try 2nd updraft to see for symptomatic improvement. Time: 20:06 Reevaluation #2: Patient had 2nd updraft, still short of breath, 2-3 word sentences. Given patient has received IV steroids, into updraft without any relief, patient should be admitted to the hospital for further treatment and evaluation. Time: 21:38 Medications Administered Discontinued Medications Generic Name Dose Route Start Last Admin Trade Name Freq PRN Reason Stop Dose Admin Acetaminophen 650 mg 05/02/23 22:58 05/03/23 01:39 Acetaminophen 325 Mg Tablet PO 650 mg Q6H PRN Administration Pain, Mild (Pain Scale 1-3) Albuterol Sulfate 2.5 mg 05/02/23 23:05 05/03/23 06:07 Albuterol Sulfate (0.083%) 2.5 Mg/3 Ml Vial.Neb INHALE 2.5 mg 6XD PRN Administration Shortness of Breath/Wheezing Albuterol/Ipratropium 3 ml 05/02/23 20:30 05/02/23 20:34 Albuterol/Iprat 2.5/0.5mg 3 Ml Ampul.Neb INHALE 05/02/23 20:31 3 ml ONCE ONE Administration Albuterol/Ipratropium 3 ml 05/03/23 08:00 05/03/23 14:52 Albuterol/Iprat 2.5/0.5mg 3 Ml Ampul.Neb INHALE 3 ml RQID MOLLY Administration Amlodipine Besylate 5 mg 05/03/23 09:00 05/03/23 09:00 Amlodipine Besylate 5 Mg Tablet PO 5 mg DAILY MOLLY Administration Protocol Ascorbic Acid 500 mg 05/03/23 09:00 05/03/23 09:00 Ascorbic Acid 500 Mg Tablet PO 500 mg DAILY MOLLY Administration Atorvastatin Calcium 80 mg 05/03/23 09:00 05/03/23 09:01 Atorvastatin Calcium 80 Mg Tablet PO 80 mg DAILY MOLLY Administration Carvedilol 6.25 mg 05/03/23 09:00 05/03/23 09:01 Carvedilol 6.25 Mg Tablet PO 6.25 mg BID MOLLY Administration Protocol Albuterol Sulfate 5 mg/ 0 mg 05/02/23 17:18 05/02/23 17:23 Albuterol/Ipratropium 3 ml INHALE 05/02/23 17:19 2.5 each ONCE ONE Administration Docusate Sodium 100 mg 05/03/23 09:00 05/03/23 09:01 Docusate Sodium 100 Mg Capsule PO 100 mg BID MOLLY Administration Ezetimibe 10 mg 05/03/23 09:00 05/03/23 09:01 Ezetimibe 10 Mg Tablet PO 10 mg DAILY MOLLY Administration Enoxaparin Sodium 40 mg 05/02/23 23:00 05/03/23 01:08 Enoxaparin Sodium 40 Mg/0.4 Ml Syringe SUBCUT 40 mg Q24H MOLLY Administration Guaifenesin 5 ml 05/03/23 08:02 05/03/23 16:18 Guaifenesin 100 Mg/5 Ml Liquid PO 5 ml Q4H PRN Administration cough Guaifenesin/Codeine Phosphate 10 ml 05/02/23 23:05 05/03/23 01:39 Guaifen/Codeine Sf 200/20/10ml 10 Ml Liquid PO 10 ml QID PRN Administration Cough Insulin Human Lispro 0 unit 05/03/23 11:30 05/03/23 12:30 Insulin Lispro 100 Unit/Ml 3 Ml Vial SUBCUT 4 unit QIDACHS MOLLY Administration Protocol Lamotrigine 25 mg 05/03/23 09:00 05/03/23 09:01 Lamotrigine 25 Mg Tablet PO 25 mg BID MOLLY Administration Lisinopril 5 mg 05/03/23 09:00 05/03/23 09:01 Lisinopril 5 Mg Tablet PO 5 mg DAILY MOLLY Administration Protocol Metformin HCl 500 mg 05/03/23 09:00 12/09/23 09:00 Metformin Hcl 500 Mg Tablet PO 500 mg BID MOLLY Administration Methylprednisolone Sodium Succinate 125 mg 05/02/23 16:44 05/02/23 16:49 Methylprednisolone Sod Succ 125 Mg/2 Ml Vial IVPUSH 05/02/23 16:45 125 mg ONCE ONE Administration Methylprednisolone Sodium Succinate 80 mg 05/03/23 08:00 05/03/23 08:59 Methylprednisolone Sod Succ 125 Mg/2 Ml Vial IVPUSH 80 mg RBID MOLLY Administration Sodium Chloride 3 ml 05/03/23 00:00 05/03/23 09:01 0.9 % Sodium Chloride Flush 3 Ml Syringe IVFLUSH 3 ml QSHIFT MOLLY Administration Vitamin D 50 mcg 05/03/23 09:00 05/03/23 09:00 Cholecalciferol (Vitamin D3) 25 Mcg Tablet PO 50 mcg DAILY MOLLY Administration Medical Decision Making Medical Decision Making [facility] Narrative: This is a 77-year-old gentleman with underlying history of CAD status post CABG, heart failure, diabetes mellitus, CKD, COPD, former 60+ pack-year smoker, quit 2013 admitted on 12/09/2022 with productive cough with clear sputum and shortness of breath x 3 days. Pt was seen by me at 1640 - patient 98% on room air with frequent, dry cough heard. Only able to get to words and% due to dyspnea. Labs, EKG, chest x-ray was ordered prior to my evaluation, patient tested negative for flu, RSV, COVID. Chest x-ray unremarkable a. Patient without leukocytosis, BUN around his baseline, BNP 71. Troponin still pending. Patient reports that he has not had any chest pain. No lower extremity edema, he does not look fluid overloaded. Plan: Labs, EKG, chest x-ray, Solu-Medrol 125 IV, E.D. bronch protocol Differential Diagnosis Differential Diagnoses: The differential diagnosis associated with the presentation includes upper respiratory infection, bronchitis, pneumonia, viral syndrome, reactive airway disease Admission/Observation Consideration of admission/observation: Escalation of care including admission/observation considered Escalation of care including admission/observation Lab Data [facility] Lab Attestation statement: I reviewed the patient's lab results. See above MDM 05/03/23 05:22 05/03/23 05:22 Labs: Lab Results 05/02/23 Range/Units 14:30 WBC 7.2 (4.8-10.8) X10*3/uL RBC 4.87 (4.60-5.80) X10*6/uL Hgb 14.3 (14.0-18.0) g/dl Hct 43.6 (42.0-52.0) % MCV 89.5 (80.0-98.0) fL MCH 29.4 (27.0-33.0) pg MCHC 32.8 (31.0-36.0) g/dl RDW 12.5 (11.0-16.0) % Plt Count 134 L (160-400) X10*3/uL MPV 11.6 (9.4-12.4) fL Immature Gran % (Auto) 0.3 (0.0-0.4) % Neut % (Auto) 57.8 (45-73) % Lymph % (Auto) 22.9 (20-40) % [place] % (Auto) 10.2 (2-11) % Eos % (Auto) 8.1 H (0-4) % Baso % (Auto) 0.7 (0-2) % Lymph # (Auto) 1.7 (1.2-4.9) X10*3/uL [place] # (Auto) 0.7 (0.1-1.2) X10*3/uL Eos # (Auto) 0.6 H (0.0-0.4) X10*3/uL Baso # (Auto) 0.1 (0.0-0.2) X10*3/uL Abs Immat Gran (auto) 0.02 (0.00-0.03) X10*3/uL Absolute Neuts (auto) 4.2 (2.0-8.3) x10*3/uL Absolute Nucleated RBC 0.000 (0.0-0.012) X10*3/uL Nucleated RBC % (auto) 0.0 (0.0-0.2) /100WBC Sodium 140 (135-145) mmol/L Potassium 4.9 D (3.3-5.1) mmol/L Chloride 104 (96-108) mmol/L Carbon Dioxide 28 (22-29) mmol/L Anion Gap 13 (12-20) BUN 19 H (9-16) mg/dL Creatinine 1.15 (0.5-1.4) mg/dL Estim Creat Clear Calc 47.4 Estimated GFR > 60 Random Glucose 240 H (60-115) mg/dL Calcium 9.6 (8.4-10.2) mg/dL Total Bilirubin 0.7 (0.0-1.0) mg/dL AST 19 (5-37) U/L ALT 28 (0-40) U/L Alkaline Phosphatase 83 (39-117) U/L Troponin I High Sens 3.5 D (<3.5-35.0) ng/L B-Natriuretic Peptide 71 (<100) pg/mL Total Protein 7.4 (6.5-8.0) g/dL Albumin 4.4 (3.5-5.0) g/dL Influenza Type A (PCR) NEGATIVE (Negative) Influenza Type B (PCR) NEGATIVE (Negative) RSV RNA Qual (PCR) NEGATIVE (Negative) SARS-CoV-2 RNA (RT-PCR) NEGATIVE (Negative) Independent Interpretation I performed an independent interpretation of an: EKG Interpretation: EKG normal sinus rhythm at a ventricular rate of 70 beats per minute, WV interval 198, QTC 419. ST elevation seen in V2-V3 which is seen in previous EKG on Jan 08, 2023 Radiology Impression Discussion of test interpretation with radiology: I have reviewed the radiologist's reading. Radiologist Impression: EXAMINATION: XR CHEST CLINICAL INFORMATION: Pain COMPARISON: Previous chest x-ray December 2022 and chest CTA November 2022 TECHNIQUE: 2 views of the chest were obtained. FINDINGS: The cardiac and mediastinal contours are stable. There are post-CABG changes. Symmetric nodular densities at the lung bases likely representing nipple shadows. The lungs are otherwise clear. No pleural effusion or pneumothorax. Degenerative changes of the spine. XR/XR chest 2V IMPRESSION: Post-CABG changes. No evidence for acute disease in the chest. Dictated By: Becky Cr MD Critical Care Time Critical Care Time Critical Care Time: Yes Total Critical Care Time: 60 Attestation: I have personally provided critical care time exclusive of time spent on separately billable procedures. Time includes review of lab data, radiology results, discussion with consultants, and monitoring for potential decompensation. Intervention performed as documented. Discharge Plan Discharge Clinical Impression: Acute dyspnea Patient Disposition: Admitted As Inpatient Interventions: Admission Worksheet (ED) Last Done: 05/03/23 00:13 Discharge Date/Time: 05/03/23 00:53
[2023-05-02 14:42] LABS: MANUAL DIFF FLAG NO
[2023-05-02 14:46] LABS: Basophils Absolute Auto 0.1 X10*3/uL (0.0-0.2); Basophils Percent Auto 0.7 % (0-2); Eosinophils Absolute Auto 0.6 X10*3/uL (0.0-0.4); Eosinophils Percent Auto 8.1 % (0-4); Hematocrit 43.6 % (42.0-52.0); Hemoglobin 14.3 g/dl (14.0-18.0); Imm Gran Abs Auto 0.02 X10*3/uL (0.00-0.03); Imm Gran Pct Auto 0.3 % (0.0-0.4); Lymphocytes Absolute Auto 1.7 X10*3/uL (1.2-4.9); Lymphocytes Percent Auto 22.9 % (20-40); Mean Corpuscular HGB Conc 32.8 g/dl (31.0-36.0); Mean Corpuscular Hemoglobin 29.4 pg (27.0-33.0); Mean Corpuscular Volume 89.5 fL (80.0-98.0); Mean Platelet Volume 11.6 fL (9.4-12.4); Monocytes Absolute Auto 0.7 X10*3/uL (0.1-1.2); Monocytes Percent Auto 10.2 % (2-11); Neutrophils Absolute Auto 4.2 x10*3/uL (2.0-8.3); Neutrophils Percent Auto 57.8 % (45-73); Platelet Count 134 X10*3/uL (160-400); Red Blood Count 4.87 X10*6/uL (4.60-5.80); Red Cell Distribution Width 12.5 % (11.0-16.0); White Blood Count 7.2 X10*3/uL (4.8-10.8)
[2023-05-02 15:01] LABS: Alanine Aminotransferase 28 U/L (0-40); Albumin Level 4.4 g/dL (3.5-5.0); Alkaline Phosphatase 83 U/L (39-117); Anion Gap 13 (12-20); Aspartate Amino Transferase 19 U/L (5-37); Bilirubin Total 0.7 mg/dL (0.0-1.0); Blood Urea Nitrogen 19 mg/dL (9-16); Calcium 9.6 mg/dL (8.4-10.2); Carbon Dioxide 28 mmol/L (22-29); Chloride 104 mmol/L (96-108); Creatinine Clr Calc Pharmacy 47.4; Estimated Glomerular Filt Rate > 60; Glucose Random 240 mg/dL (60-115); Potassium 4.9 mmol/L (3.3-5.1); Sodium 140 mmol/L (135-145); Total Protein 7.4 g/dL (6.5-8.0)
[2023-05-02 15:06] LABS: B Type Natriuretic Peptide 71 pg/mL (<100)
[2023-05-02 15:33] LABS: Influenza A PCR NEGATIVE (Negative); Influenza B PCR NEGATIVE (Negative); Resp Syncy Virus RNA Qual PCR NEGATIVE (Negative); SARS COV2 PCR INHOUSE NEGATIVE (Negative)
--- NOTE | 2023-05-02 16:09 | ECG_ITS ---
Test Reason : SOB Blood Pressure : / mmHG Vent. Rate : 070 BPM Atrial Rate : 070 BPM P-R Int : 198 ms QRS Dur : 094 ms QT Int : 388 ms P-R-T Axes : 059 -04 075 degrees QTc Int : 419 ms Normal sinus rhythm Septal infarct (cited on or before 23-OCT-2004) Abnormal ECG When compared with ECG of 08-JAN-2023 16:13, No significant change was found Referred By: Macy Barlow Electronically Signed By:EKITH CLARK
--- OUTSIDE RECORDS SUMMARY | 2023-05-02 16:26 | XMS_ITS | Continuity of Care Document ---
Author Name Unknown Organization [facility] Address [address] [place] [id number]- Care Team Providers Care Physician In Private Practice Name Role Phone Kristin Leticia SIMS Primary Care Physician [phone] Encounter [facility] Date(s): 03/05/23 - 04/04/[address] [id number] Attending Physician: Mitesh Lopez Admitting Physician: AdmtrMitesh Referring Physician: Admtr Ar8 Allergies, Adverse Reactions, Alerts Substance Reaction Severity Status Duloxetine 1 rash Active 1GI Immunizations Given and Recorded Vaccine Date Status Refusal Reason influenza virus vaccine, inactivated 1 02/17/23 Gi radha influenza virus vaccine, inactivated 2 03/28/22 Gi radha influenza virus vaccine, inactivated 3 03/19/21 Gi radha influenza virus vaccine, inactivated 04/17/18 Give n influenza virus vaccine, inactivated 4 02/28/17 Gi radha influenza virus vaccine, inactivated 03/07/16 Give n influenza virus vaccine, inactivated 03/22/15 Give n influenza virus vaccine, inactivated 5 04/02/14 Re corded influenza virus vaccine, inactivated 04/19/13 Give n influenza virus vaccine, inactivated 01/28/12 Give n influenza virus vaccine, inactivated 6 05/01/11 Gi radha influenza virus vaccine, inactivated 7 08/01/10 Gi radha pneumococcal 20-valent conjugate vaccine 08/27/22 Recorded [id number] 12y+ bivalent booster vax 08/27/22 Recorded SARS-CoV-2 mRNA (aopmsnj-qqid-butmd) vax 8 06/29/21 Given SARS-CoV-2 (COVID-19) mRNA BNT-162b2 vac 09/29/20 Recorded SARS-CoV-2 (COVID-19) mRNA BNT-162b2 vac 09/08/20 Recorded pneumococcal 13-valent vaccine 03/22/20 Recorded pneumococcal 13-valent vaccine 06/23/14 Given Influenza Virus Vaccine (oldterm) 03/22/20 Recorde d Influenza Virus Vaccine (oldterm) 03/10/19 Recorde d Influenza Virus Vaccine (oldterm) 9 04/03/07 Given Influenza Virus Vaccine (oldterm) 10 03/11/06 Give n tetanus/diphtheria/pertussis, acel(Tdap) 12/06/19 Given hepatitis B adult vaccine 07/14/13 Given pneumococcal 23-valent vaccine 05/13/12 Given Zoster Vaccine Live 11 05/22/11 Given Influenza Vaccine (oldterm) 12 02/09/09 Given Tet/Diphth/Acel, Pertussis (oldterm) 13 08/04/07 G iven Pneumococcal Vaccine (oldterm) 14 03/11/06 Given 1Result Comment: Flu HD [facility]#21369-570-39 2Result Comment: [facility]-[id number] 3Result Comment: [facility]: 32762-797-59 4Result Comment: [02/28/2017] [facility]: 88749-427-85 [facility] 6Admin Note: VIS 12/18/2010 7Admin Note: VIS given 01/02/10 8Result Comment: [facility]-[id number] 9Admin Note: VIS 10Admin Note: VIS-GIVEN 11Admin Note: vis 03/03 12Admin Note: vis 01/01 13Admin Note: VIS 14Admin Note: vis-given Medications albuterol 0.021% inhalation solution 3 mL = 0.63 mg, Neb, Once, administered in-office, # 3 mL, 0 Refills, Soft Stop, 01/08/23 13:45:00 EDT, = Start Date: 01/08/23 Stop Date: 01/08/23 Status: Ordered albuterol 90 mcg/inh inhalation powder 2 puffs = 180 mcg, Inhalation, Every 4 hours, PRN as needed, # 1 each, 0 Refills, Maintenance, 12/03/22 13:26:00 EDT, Powder, [facility] #[id number], 2 puffs Inhalation Every 4 hours,PRN:as needed, 168, cm, 11/21/22 9:25:00 EDT, Height, 75.2, kg,... Start Date: 12/03/22 Status: Ordered amLODIPine 5 mg oral tablet 1 tablet = 5 mg, By Mouth, Daily, # 90 tablet, 1 Refills, Maintenance, 10/07/22 21:43:00 EDT, Tablet, [facility] #[id number], 167.6, cm, 10/07/22 13:14:00 EDT, Height, 74, kg, 04/06/22 1:20:00 EST, Dry Weight Start Date: 10/07/22 Status: Ordered aspirin 81 mg oral enteric coated capsule 1 capsule = 81 mg, By Mouth, Daily, # 120 capsule, 0 Refills, Maintenance, EC Capsule Start Date: 11/13/12 Status: Ordered atorvastatin 80 mg oral tablet 1 tablet, By Mouth, Daily, # 90 tablet, 1 Refills, Maintenance, 03/21/23 12:54:00 EDT, [facility] #[id number], 168, cm, 02/17/23 10:42:00 EDT, Height, 75.2, kg, 11/09/22 22:57:00 EDT, Dry Weight Start Date: 03/21/23 Status: Ordered Coreg 6.25 mg oral tablet 6.25 mg, 1, tablet, By Mouth, 2 times a day, # 180 tablet, Refills 0, Tot. Refills 0, Maintenance, 01/09/23 20:35:00 EDT, Route to Pharmacy Electronically, [facility] #[id number], 168, cm, 01/08/23 13:26:00 EDT, Height, 75.2, kg, 11/09/22 22:57:0... Start Date: 01/09/23 Status: Ordered ezetimibe 10 mg oral tablet 1 tablet = 10 mg, By Mouth, Daily, # 90 tablet, 1 Refills, Maintenance, 11/22/22 11:47:00 EDT, Tablet, [facility] #[id number], 168, cm, 11/21/22 9:25:00 EDT, Height, 75.2, kg, 11/09/22 22:57:00 EDT, Dry Weight Start Date: 11/22/22 Stop Date: 05/21/23 Status: Ordered Farxiga 10 mg oral tablet 1 tablet = 10 mg, By Mouth, Daily, Increased strength, # 30 tablet, 0 Refills, Maintenance, 01/16/22 9:53:00 EDT, Tablet, [facility] #[id number], Increased strength, 168, cm, 12/26/21 15:45:00 EDT, [...] 05/02/22 13:11:00 EST, Route to Pharmacy Electronically, [facility] #[id number], Partial fill upon patient request if the prescription is for a schedule... Start Date: 05/02/22 Stop Date: 10/29/22 Status: Ordered lisinopril 5 mg oral tablet 1, tablet, By Mouth, Daily, # 90 tablet, Refills 0, Maintenance, 02/18/23 7:58:00 EDT, Route to Pharmacy Electronically, [facility] #[id number], 168, cm, 02/17/23 10:42:00 EDT, Height, 75.2, kg,11/09/22 22:57:00 EDT, Dry Weight Start Date: 02/18/23 Status: Ordered metFORMIN 500 mg oral tablet 1 tablet = 500 mg, By Mouth, 2 times a day, for 90 days, # 180 tablet, 1 Refills, Acute 07/18/23 12:00:00 EST, 01/19/23 12:00:00 EDT, Tablet, [facility] #[id number], 168, cm, 01/16/23 8:16:00 EDT, Height, 75.2, kg, 11/09/22 22:57:00 EDT, Dry Weight Start Date: 01/19/23 Stop Date: 07/18/23 Status: Ordered nitroglycerin 0.3 mg sublingual tablet 1 tablet = 0.3 mg, Sublingual, Every 5 minutes, PRN as needed for chest pain, not to exceed 3 doses/15 min--if pain persists, seek medical attention, # 100 tablet, 0 Refills, Maintenance, 12/04/20 10:05:00 EDT, Tablet, [facility] #[id number], Par... Start Date: 12/04/20 Status: Ordered oxyCODONE 10 mg oral tablet 1 tablet = 10 mg, By Mouth, Every 4 hours, PRN as needed for pain, Ok to fill less than prescribed amount M48.061, M96.1, # 168 tablet, 0 Refills, Maintenance, 03/24/23 15:53:00 EDT, Tablet, [facility] #[id number], Partial fill upon patient req... Start Date: 03/24/23 Status: Ordered pantoprazole 40 mg oral delayed release tablet 1 tablet = 40 mg, By Mouth, Daily, # 90 tablet, 1 Refills, Maintenance, 11/22/22 11:47:00 EDT, EC Tablet, 168, cm, 11/21/22 9:25:00 EDT, Height, 75.2, kg, 11/09/22 22:57:00 EDT, Dry Weight Start Date: 11/22/22 Status: Ordered Symbicort 80mcg/4.5mcg Inhaler 2, puffs, Inhalation, 2 times a day, rinse mouth and throat after use, # 1 each, Refills 5, Tot. Refills 5, Maintenance, 01/16/23 8:36:00 EDT, Inhaler, Route to Pharmacy Electronically, [id number], [facility] #[id number]... Start Date: 01/16/23 Stop Date: 07/15/23 Status: Ordered Vitamin C 500 mg oral [...] 0 Refills, Maintenance, 10/07/22 13:36:00 EDT, Capsule, [facility] #[id number], 167.6, cm, 10/07/22 13:14:00 EDT, Height, 74, [...] Active H/O: CVA ([place]) Confirmed Active Inguinal hernia left Confirmed Active Ischemic cardiomyopathy Confirmed 10/20/20 Active skilled nursing current use of opiate analgesic 12, 13, [...] past 12care ploan reviewed 13comm 2 14PHQ9;2. [place] 4, 15surgery 1991 16MRI 2006 17possible ITP 18monitor 19Tubular adenoma 2014 Social History Social History Type Response Smoking Status Former smoker; Tobac co use times per day: smoked < 1/2 PPD; Started at age: 18; Stopped at age: 65; entered on: 12/23/13 Sex Patient Care team information Care Team Personnel Name: Philomena Castillo Position: [facility] RN Supv Member Role: Primary Care Nurse Name: Leticia Foster NP Position: [facility] PCO Associate Professional Member Role: PCP Address: Address: [address] [place] [id number]- Name: Namita Barajas RN Position: [facility] RN Member Role: Primary Care Nurse Name: Tasha Back RN Position: [facility] RN Member Role: Primary Care Nurse Name: Jenny Bustillos RN Position: [facility] RN Member Role: Primary Care Nurse Name: Margarita Serrano RN Position: [facility] RN Member Role: Primary Care Nurse Name: Michelle ([place]) Lillian Position: [facility] floral manager Member Role: Segmental Wall Installer Name: Devin Benites RN Position: [facility] RN Member Role: Primary Care Nurse Name: Betsy Millan RN Position: [facility] RN Member Role: Primary Care Nurse Name: Peggy Jansen RN Position: [facility] RN Member Role: Primary Care Nurse Name: Cate Pabon RN Position: [facility] AMB Nurse Member Role: Primary Care Nurse Name: Janette Jonse RN Position: [facility] RN Member Role: Primary Care Nurse Name: Deanne Hayes RN Position: S RN Member Role: Primary Care Nurse Name: Vianney Mcneill RN Position: S RN Member Role: Primary Care Nurse Name: Cindy Evans LPN Position: [facility] RN Member Role: Primary Care Nurse Care Team Related Persons Name: INGE MURRAY Address: home [address] [place] [id number] Name: NIK BARTON Address: [place] [address]
[2023-05-02 16:27] VITALS: BP 138/73; PULSE 78; RESP 19; O2SAT 97
--- OUTSIDE RECORDS SUMMARY | 2023-05-02 16:27 | XMS_ITS | Continuity of Care Document ---
Author Name Unknown Organization [facility] Address [address] [place] [id number]- Care Team Providers Care Genetic Coordinator Name Role Phone Kristin SIMS, Leticia Hope Primary Care Physician [phone] Encounter [facility] Date(s): 02/17/23 - 03/23/[address] [id number] Attending Physician: Leticia Foster NP Admitting Physician: Leticia Foster NP Referring Physician: Leticia Foster NP Allergies, Adverse [...] radha pneumococcal 20-valent conjugate vaccine 08/27/22 Recorded [id number] 12y+ bivalent booster vax 08/27/22 Recorded SARS-CoV-2 mRNA ([id number]) vax 8 06/29/21 Given SARS-CoV-2 (COVID-19) mRNA [...] 14 03/11/06 Given 1Result Comment: Flu HD [facility]NOTE 3]#[id number] 2Result Comment: [facility] 3]-[id number] 3Result Comment: [facility][NOTE 3]: [id number] 4Result Comment: [02/28/2017] [facility][NOTE 3]: [id number] [facility] 6Admin Note: VIS 12/18/2010 7Admin Note: VIS given 01/02/10 8Result Comment: [facility][NOTE 3]-[id number] 9Admin Note: VIS 10Admin Note: VIS-GIVEN 11Admin [...] 0 Refills, Maintenance, 12/03/22 13:26:00 EDT, Powder, [facility] #[id number], 2 puffs Inhalation Every 4 hours,PRN:as needed, 168, cm, 11/21/22 9:25:00 EDT, Height, 75.2, kg,... Start Date: 12/03/22 Status: Ordered amLODIPine 5 mg oral tablet 1 tablet = 5 mg, By Mouth, Daily, # 90 tablet, 1 Refills, Maintenance, 10/07/22 21:43:00 EDT, Tablet, [facility] #[id number], 167.6, cm, 10/07/22 13:14:00 EDT, Height, 74, [...] tablet, 1 Refills, Maintenance, 03/21/23 12:54:00 EDT, [facility] #[id number], 168, cm, 02/17/23 10:42:00 EDT, Height, 75.2, kg, 11/09/22 22:57:00 EDT, Dry Weight Start Date: 03/21/23 Status: Ordered Coreg 6.25 mg oral tablet 6.25 mg, 1, tablet, By Mouth, 2 times a day, # 180 tablet, Refills 0, Tot. Refills 0, Maintenance, 01/09/23 20:35:00 EDT, Route to Pharmacy Electronically, [facility] #[id number], 168, cm, 01/08/23 13:26:00 EDT, Height, 75.2, kg, 11/09/22 22:57:0... Start Date: 01/09/23 Status: Ordered ezetimibe 10 mg oral tablet 1 tablet = 10 mg, By Mouth, Daily, # 90 tablet, 1 Refills, Maintenance, 11/22/22 11:47:00 EDT, Tablet, [facility] #[id number], 168, cm, 11/21/22 9:25:00 EDT, Height, 75.2, kg, 11/09/22 22:57:00 EDT, Dry Weight Start Date: 11/22/22 Stop Date: 05/21/23 Status: Ordered Farxiga 10 mg oral tablet 1 tablet = 10 mg, By Mouth, Daily, Increased strength, # 30 tablet, 0 Refills, Maintenance, 01/16/22 9:53:00 EDT, Tablet, [facility] #[id number], Increased strength, 168, cm, 12/26/21 15:45:00 EDT, [...] 05/02/22 13:11:00 EST, Route to Pharmacy Electronically, [facility] #[id number], Partial fill upon patient request if the prescription is for a schedule... Start Date: 05/02/22 Stop Date: 10/29/22 Status: Ordered lisinopril 5 mg oral tablet 1, tablet, By Mouth, Daily, # 90 tablet, Refills 0, Maintenance, 02/18/23 7:58:00 EDT, Route to Pharmacy Electronically, [facility] #[id number], 168, cm, 02/17/23 10:42:00 EDT, Height, 75.2, kg,11/09/22 22:57:00 EDT, Dry Weight Start Date: 02/18/23 Status: Ordered metFORMIN 500 mg oral tablet 1 tablet = 500 mg, By Mouth, 2 times a day, for 90 days, # 180 tablet, 1 Refills, Acute 07/18/23 12:00:00 EST, 01/19/23 12:00:00 EDT, Tablet, [facility] #[id number], 168, cm, 01/16/23 8:16:00 EDT, Height, 75.2, kg, 11/09/22 22:57:00 EDT, Dry Weight Start Date: 01/19/23 Stop Date: 07/18/23 Status: Ordered nitroglycerin 0.3 mg sublingual tablet 1 tablet = 0.3 mg, Sublingual, Every 5 minutes, PRN as needed for chest pain, not to exceed 3 doses/15 min--if pain persists, seek medical attention, # 100 tablet, 0 Refills, Maintenance, 12/04/20 10:05:00 EDT, Tablet, [facility] #[id number], Par... Start Date: 12/04/20 Status: Ordered oxyCODONE 10 mg oral tablet 1 tablet = 10 mg, By Mouth, Every 4 hours, PRN as needed for pain, Ok to fill less than prescribed amount M48.061, M96.1, # 168 tablet, 0 Refills, Maintenance, 02/25/23 19:36:00 EDT, [facility] #[id number], Partial fill upon patient req... Start Date: 02/25/23 Status: Ordered pantoprazole 40 mg oral delayed [...] 8:36:00 EDT, Inhaler, Route to Pharmacy Electronically, [id number], [facility] #[id number]... 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 3no showurology 4bx dec 2012 5fev1 89% 6colonoscopy 2015,mild 7refer teaching 8neg bx 9BIOPSY PLANNED 10DR anish addressing 11had viagra past 12care ploan reviewed 13comm 2 14PHQ9;2. [place] 4, 15surgery 1991 16MRI 2006 17possible ITP 18monitor 19Tubular adenoma 2014 Social History Social History Type Response Smoking Status Former smoker; Tobac co use times per day: smoked < 1/2 PPD; Started at age: 18; Stopped at age: 65; entered on: 12/23/13 Sex Patient Care team information Care Team Personnel Name: Philomena Castillo Position: [facility] RN Supv Member Role: Primary Care Nurse Name: Leticia Foster NP Position: [facility] PCO Associate Professional Member Role: PCP Address: Address: [address] [place] [id number]- Name: Namita Barajas RN Position: [facility] RN Member Role: Primary Care Nurse Name: Tasha Back RN Position: [facility] RN Member Role: Primary Care Nurse Name: Jenny Bustillos RN Position: [facility] RN Member Role: Primary Care Nurse Name: Margarita Serrano RN Position: [facility] RN Member Role: Primary Care Nurse Name: Michelle ([place]) Lillian Position: [facility] chopped strand operator Member Role: Auto Refinisher Name: Devin Benitse RN Position: [facility] RN Member Role: Primary Care Nurse Name: Betsy Millan RN Position: [facility] RN Member Role: Primary Care Nurse Name: Peggy Jansen RN Position: [facility] RN Member Role: Primary Care Nurse Name: Cate Pabon RN Position: [facility] AMB Nurse Member Role: Primary Care Nurse Name: Janette Jones RN Position: [facility] RN Member Role: Primary Care Nurse Name: Deanne Hayes RN Position: S RN Member Role: Primary Care Nurse Name: Vianney Mcneill RN Position: S RN Member Role: Primary Care Nurse Name: Cindy Evans LPN Position: [facility] RN Member Role: Primary Care Nurse Care Team Related Persons Name: INGE MURRAY Address: home [address] [place] [id number] Name: NIK BARTON Address: [place] [address]
--- OUTSIDE RECORDS SUMMARY | 2023-05-02 16:28 | XMS_ITS | Continuity of Care Document ---
Author Name Unknown Organization [facility] Address [address] [place] [address]- Care Team Providers Care Prison Teacher Name Role Phone Leticia Foster NP Primary Care Physician Encounter [facility] Date(s): 02/25/23 - 04/30/23 [facility] [address] [place] [id number]- Encounter Diagnosis Pain in left shoulder(Final) - Discharge Disposition: A-D/C Home Attending Physician: Leticia Foster NP Admitting Physician: [...] radha pneumococcal 20-valent conjugate vaccine 08/27/22 Recorded [id number] 12y+ bivalent booster vax 08/27/22 Recorded SARS-CoV-2 mRNA ([id number]) vax 8 06/29/21 Given SARS-CoV-2 (COVID-19) mRNA [...] 14 03/11/06 Given 1Result Comment: Flu HD [facility]#21289-220-92 2Result Comment: [facility]-[id number] 3Result Comment: [facility]: [id number] 4Result Comment: [02/28/2017] [facility]: [id number] 5[facility] 6Admin Note: VIS 12/18/2010 7Admin Note: VIS given 01/02/10 8Result Comment: [facility]-[id number] 9Admin Note: VIS 10Admin Note: VIS-GIVEN 11Admin [...] 0 Refills, Maintenance, 12/03/22 13:26:00 EDT, Powder, [facility] #[id number], 2 puffs Inhalation Every 4 hours,PRN:as needed, 168, cm, 11/21/22 9:25:00 EDT, Height, 75.2, kg,... Start Date: 12/03/22 Status: Ordered amLODIPine 5 mg oral tablet 1 tablet = 5 mg, By Mouth, Daily, # 90 tablet, 1 Refills, Maintenance, 10/07/22 21:43:00 EDT, Tablet, [facility] #[id number], 167.6, cm, 10/07/22 13:14:00 EDT, Height, 74, [...] tablet, 1 Refills, Maintenance, 03/21/23 12:54:00 EDT, [facility] #[id number], 168, cm, 02/17/23 10:42:00 EDT, Height, 75.2, kg, 11/09/22 22:57:00 EDT, Dry Weight Start Date: 03/21/23 Status: Ordered Coreg 6.25 mg oral tablet 6.25 mg, 1, tablet, By Mouth, 2 times a day, # 180 tablet, Refills 1, Tot. Refills 1, Maintenance, 04/24/23 21:11:00 EST, Route to Pharmacy Electronically, [facility] #[id number], 165.5, cm, 04/09/23 13:02:00 EST, Height, 75.2, kg, 11/09/22 22:57... Start Date: 04/24/23 Status: Ordered ezetimibe 10 mg oral tablet 1 tablet = 10 mg, By Mouth, Daily, for 90 days, # 90 tablet, 1 Refills, Hard Stop 05/21/23 11:47:00EST, 11/22/22 11:47:00 EDT, Tablet, [facility] #[id number], 168, cm, 11/21/22 9:25:00 EDT, Height, 75.2, kg, 11/09/22 22:57:00 EDT, Dry Weight Start Date: 11/22/22 Stop Date: 05/21/23 Status: Ordered ezetimibe 10 mg oral tablet 1 tablet = 10 mg, By Mouth, Daily, # 90 tablet, 1 Refills, Maintenance, 05/21/23 11:47:00 EST, Tablet, [facility] #[id number], 165.5, cm, 04/09/23 13:02:00 EST, Height, 75.2, kg, 11/09/22 22:57:00 EDT, Dry Weight Start Date: 05/21/23 Stop Date: 11/17/23 Status: Ordered Farxiga 10 mg oral tablet 1 tablet = 10 mg, By Mouth, Daily, Increased strength, # 30 tablet, 0 Refills, Maintenance, 01/16/22 9:53:00 EDT, Tablet, [facility] #27164, Increased strength, 168, cm, 12/26/21 15:45:00 EDT, [...] 05/02/22 13:11:00 EST, Route to Pharmacy Electronically, [facility] #[id number], Partial fill upon patient request if the prescription is for a schedule... Start Date: 05/02/22 Stop Date: 10/29/22 Status: Ordered lisinopril 5 mg oral tablet 1, tablet, By Mouth, Daily, # 90 tablet, Refills 0, Maintenance, 02/18/23 7:58:00 EDT, Route to Pharmacy Electronically, [facility] #[id number], 168, cm, 02/17/23 10:42:00 EDT, Height, 75.2, kg,11/09/22 22:57:00 EDT, Dry Weight Start Date: 02/18/23 Status: Ordered metFORMIN 500 mg oral tablet 1 tablet = 500 mg, By Mouth, 2 times a day, for 90 days, # 180 tablet, 1 Refills, Acute 07/18/23 12:00:00 EST, 01/19/23 12:00:00 EDT, Tablet, [facility] #[id number], 168, cm, 01/16/23 8:16:00 EDT, Height, 75.2, kg, 11/09/22 22:57:00 EDT, Dry Weight Start Date: 01/19/23 Stop Date: 07/18/23 Status: Ordered nitroglycerin 0.3 mg sublingual tablet 1 tablet = 0.3 mg, Sublingual, Every 5 minutes, PRN as needed for chest pain, not to exceed 3 doses/15 min--if pain persists, seek medical attention, # 100 tablet, 0 Refills, Maintenance, 12/04/20 10:05:00 EDT, Tablet, [facility] #[id number], Par... Start Date: 12/04/20 Status: Ordered oxyCODONE 10 mg oral tablet 1 tablet = 10 mg, By Mouth, Every 4 hours, PRN as needed for pain, Ok to fill less than prescribed amount M48.061, M96.1, # 168 tablet, 0 Refills, Maintenance, 04/22/23 14:28:00 EST, Tablet, [facility] #[id number], Partial fill upon patient req... Start Date: 04/22/23 Status: Ordered pantoprazole 40 mg oral delayed release tablet 1 tablet = 40 mg, By Mouth, Daily, # 90 tablet, 1 Refills, Maintenance, 04/09/23 13:15:00 EST, EC Tablet, 165.5, cm, 04/09/23 13:02:00 EST, Height, 75.2, kg, 11/09/22 22:57:00 EDT, Dry Weight Start Date: 04/09/23 Status: Ordered Symbicort 80mcg/4.5mcg Inhaler 2, puffs, Inhalation, 2 times a day, rinse mouth and throat after use, # 1 each, Refills 5, Tot. Refills 5, Maintenance, 01/16/23 8:36:00 EDT, Inhaler, Route to Pharmacy Electronically, [id number], [facility] #[id number]... Start Date: 01/16/23 Stop Date: 07/15/23 Status: [...] mcg, By Mouth, Daily, # 90 capsule, 1 Refills, Maintenance, 04/09/23 13:15:00 EST, Capsule, [facility] #63291, 165.5, cm, 04/09/23 13:02:00 EST, Height, 75.2, kg, 11/09/22 22:57:00 EDT, Dry Weight Start Date: 04/09/23 Stop Date: 10/06/23 Status: Ordered Problem List Condition Confirmation Course [...] Confirmed Active Ischemic cardiomyopathy Confirmed 10/20/20 Active senior care current use of opiate analgesic 12, 13, [...] past 12care ploan reviewed 13comm 2 14PHQ9;2. [place] 4, 15surgery 1991 16MRI 2006 17possible ITP 18monitor 19Tubular adenoma 2015 Social History Social History Type Response Smoking Status Former smoker; Tobac co use times per day: smoked < 1/2 PPD; Started at age: 18; Stopped at age: 65; entered on: 12/23/13 Sex Patient Care team information Care Team Personnel Name: Philomena Castillo Position: [facility] RN Supv Member Role: Primary Care Nurse Name: Leticia Foster NP Position: [facility] PCO Associate Professional Member Role: PCP Address: Address: [address] [place] [phone]- [place] Name: Namita Barajas RN Position: S RN Member Role: Primary Care Nurse Name: Tasha Back RN Position: S RN Member Role: Primary Care Nurse Name: Jenny Bustillos RN Position: [facility] RN Member Role: Primary Care Nurse Name: Margarita Serrano RN Position: [facility] RN Member Role: Primary Care Nurse Name: Michelle ([facility] Lillian Position: [facility] labor relations supervisor Member Role: Sap Specialist Name: Devin Benites RN Position: [facility] RN Member Role: Primary Care Nurse Name: Betsy Millan RN Position: [facility] RN Member Role: Primary Care Nurse Name: Peggy Jansen RN Position: [facility] RN Member Role: Primary Care Nurse Name: Cate Pabon RN Position: [facility] AMB Nurse Member Role: Primary Care Nurse Name: Janette Jones RN Position: [facility] RN Member Role: Primary Care Nurse Name: Deanne Hayes RN Position: [facility] RN Member Role: Primary Care Nurse Name: Vianney Mcneill RN Position: [facility] RN Member Role: Primary Care Nurse Name: Cindy Evans LPN Position: [facility] RN Member Role: Primary Care Nurse Care Team Related Persons Name: ELENACHENGHerminia INGE Address: home [address] [place] [address] Name: NIK BARTON Address: [place] [address]
--- OUTSIDE RECORDS SUMMARY | 2023-05-02 16:28 | XMS_ITS | Continuity of Care Document ---
Author Name Unknown Organization [facility] lt Address [address] [place] [address]- Care Team Providers Care Attraction Worker Name Role Phone Kristin Leticia SIMS Primary Care Physician Encounter [facility] Date(s): 12/27/22 - 01/26/23 [facility] [address] [place] [address]- Allergies, Adverse Reactions, Alerts Substance Reaction Severity Status Duloxetine 1 rash Active 1GI Immunizations Given and Recorded Vaccine Date Status Refusal Reason pneumococcal 20-valent conjugate vaccine 08/27/22 Recorded [id number] 12y+ bivalent booster vax 08/27/22 Recorded influenza [...] inactivated 6 08/01/10 Gi radha SARS-CoV-2 mRNA ([id number]) vax 7 06/29/21 Given SARS-CoV-2 (COVID-19) mRNA [...] Given Zoster Vaccine Live 10 05/22/11 Given Influenza Vaccine (oldterm) 11 02/09/09 Given Tet/Diphth/Acel, Pertussis (oldterm) 12 08/04/07 G iven Pneumococcal Vaccine (oldterm) 13 03/11/06 Given 1Result Comment: [facility]-[id number] 2Result Comment: [facility]: [id number] 3Result Comment: [02/28/2017] HD [facility]: [id number] 4[facility] History[facility] 5Admin Note: VIS 12/18/2010 6Admin Note: VIS given 01/02/10 7Result Comment: [facility]-[id number] 8Admin Note: VIS 9Admin Note: VIS-GIVEN 10Admin Note: vis 03/03 11Admin Note: vis 01/01 12Admin Note: VIS 13Admin Note: vis-given Medications albuterol 0.021% inhalation solution 3 mL = 0.63 mg, Neb, Once, administered in-office, # 3 mL, 0 Refills, Soft Stop, 01/08/23 13:45:00 EDT, = Start Date: 01/08/23 Stop Date: 01/08/23 Status: Ordered albuterol 90 mcg/inh inhalation powder 2 puffs = 180 mcg, Inhalation, Every 4 hours, PRN as needed, # 1 each, 0 Refills, Maintenance, 12/03/22 13:26:00 EDT, Powder, [facility] #[id number], 2 puffs Inhalation Every 4 hours,PRN:as needed, 168, cm, 11/21/22 9:25:00 EDT, Height, 75.2, kg,... Start Date: 12/03/22 Status: Ordered amLODIPine 5 mg oral tablet 1 tablet = 5 mg, By Mouth, Daily, # 90 tablet, 1 Refills, Maintenance, 10/07/22 21:43:00 EDT, Tablet, [facility] #76006, 167.6, cm, 10/07/22 13:14:00 EDT, Height, 74, [...] tablet, 1 Refills, Maintenance, 10/07/22 21:43:00 EDT, [facility] #[id number], 167.6, cm, 10/07/22 13:14:00 EDT, Height, 74, kg, 04/06/22 1:20:00 EST, Dry Weight Start Date: 10/07/22 Status: Ordered benzonatate 100 mg oral capsule 1 capsule = 100 mg, By Mouth, Daily at bedtime, PRN Cough, for 14 days, # 14 capsule, 0 Refills, Acute 01/30/23 8:44:00 EDT, 01/16/23 8:44:00 EDT, Capsule, [facility] #[id number], 168, cm, 01/16/23 8:16:00 EDT, Height, 75.2, kg, 11/09/22 22:57:00... Start Date: 01/16/23 Stop Date: 01/30/23 Status: Ordered Coreg 6.25 mg oral tablet 6.25 mg, 1, tablet, By Mouth, 2 times a day, # 180 tablet, Refills 0, Tot. Refills 0, Maintenance, 01/09/23 20:35:00 EDT, Route to Pharmacy Electronically, [facility] #[id number], 168, cm, 01/08/23 13:26:00 EDT, Height, 75.2, kg, 11/09/22 22:57:0... Start Date: 01/09/23 Status: Ordered ezetimibe 10 mg oral tablet 1 tablet = 10 mg, By Mouth, Daily, # 90 tablet, 1 Refills, Maintenance, 11/22/22 11:47:00 EDT, Tablet, [facility] #[id number], 168, cm, 11/21/22 9:25:00 EDT, Height, 75.2, kg, 11/09/22 22:57:00 EDT, Dry Weight Start Date: 11/22/22 Stop Date: 05/21/23 Status: Ordered Farxiga 10 mg oral tablet 1 tablet = 10 mg, By Mouth, Daily, Increased strength, # 30 tablet, 0 Refills, Maintenance, 01/16/22 9:53:00 EDT, Tablet, [facility] #25249, Increased strength, 168, cm, 12/26/21 15:45:00 EDT, [...] 05/02/22 13:11:00 EST, Route to Pharmacy Electronically, [facility] #[id number], Partial fill upon patient request if the prescription is for a schedule... Start Date: 05/02/22 Stop Date: 10/29/22 Status: Ordered lisinopril 5 mg oral tablet 5 mg, 1, tablet, By Mouth, Daily, # 90 tablet, Refills 3, Tot. Refills 3, Maintenance, 03/10/22 22:37:00 EDT, Route to Pharmacy Electronically, [facility] #[id number], Partial fill upon patient request if the prescription is for a schedule II opi... Start Date: 03/10/22 Status: Ordered metFORMIN 500 mg oral tablet 1 tablet = 500 mg, By Mouth, 2 times a day, for 90 days, # 180 tablet, 1 Refills, Acute 07/18/23 12:00:00 EST, 01/19/23 12:00:00 EDT, Tablet, [facility] #[id number], 168, cm, 01/16/23 8:16:00 EDT, Height, 75.2, kg, 11/09/22 22:57:00 EDT, Dry Weight Start Date: 01/19/23 Stop Date: 07/18/23 Status: Ordered nitroglycerin 0.3 mg sublingual tablet 1 tablet = 0.3 mg, Sublingual, Every 5 minutes, PRN as needed for chest pain, not to exceed 3 doses/15 min--if pain persists, seek medical attention, # 100 tablet, 0 Refills, Maintenance, 12/04/20 10:05:00 EDT, Tablet, [facility] #[id number], Par... Start Date: 12/04/20 Status: Ordered oxyCODONE 10 mg oral tablet 1 tablet = 10 mg, By Mouth, Every 4 hours, PRN as needed for pain, Ok to fill less than prescribed amount M48.061, M96.1, # 168 tablet, 0 Refills, Maintenance, 12/27/22 9:57:00 EDT, Tablet, [facility] #[id number], Partial fill upon patient requ... Start Date: 12/27/22 Status: Ordered pantoprazole 40 mg oral delayed release tablet 1 tablet = 40 mg, By Mouth, Daily, # 90 tablet, 1 Refills, Maintenance, 11/22/22 11:47:00 EDT, EC Tablet, 168, cm, 11/21/22 9:25:00 EDT, Height, 75.2, kg, 11/09/22 22:57:00 EDT, Dry Weight Start Date: 11/22/22 Status: Ordered Paxlovid 150 mg-100 mg (150 mg-100 mg Dose) oral tablet See Instructions, By Mouth 2 times a day Take 300 mg nirmatrelvir (two 150 mg tablet) and 100 mg ritonavir (one 100 mg tablet), taking both tablets together, orally twice daily for 5 days stop atorvastatin while taking, # 30 tablet, 0 Refills, Acute... Start Date: 01/23/23 Stop Date: 01/28/23 Status: Ordered Symbicort 80mcg/4.5mcg Inhaler 2, puffs, Inhalation, 2 times a day, rinse mouth and throat after use, # 1 each, Refills 5, Tot. Refills 5, Maintenance, 01/16/23 8:36:00 EDT, Inhaler, Route to Pharmacy Electronically, [id number], [facility] #[id number]... Start Date: 01/16/23 Stop Date: 07/15/23 Status: [...] 0 Refills, Maintenance, 10/07/22 13:36:00 EDT, Capsule, [facility] #58475, 167.6, cm, 10/07/22 13:14:00 EDT, Height, 74, [...] Active half-way current use of opiate analgesic 12, 13, [...] past 12care ploan reviewed 13comm 2 14PHQ9;2. [place] 4, 15surgery 1991 16MRI 2006 17possible ITP [...] Associate Professional Member Role: PCP Address: Address: [address] [place] [phone]- [place] Name: Namita Barajas RN Position: S RN Member Role: Primary Care Nurse Name: Tasha Back RN Position: [facility] RN Member Role: Primary Care Nurse Name: Jneny Bustillos RN Position: [facility] RN Member Role: Primary Care Nurse Name: Margarita Serrano RN Position: [facility] RN Member Role: Primary Care Nurse Name: Lillian Martinez Position: [facility] retail product demo specialist Member Role: Registered Massage Therapist Name: Devin Benites RN Position: [facility] RN Member Role: Primary Care Nurse Name: Betsy Millan RN Position: [facility] RN Member Role: Primary Care Nurse Name: Peggy Jansen RN Position: [facility] RN Member Role: Primary Care Nurse Name: Cate Pabon RN Position: [facility] AMB Nurse Member Role: Primary Care Nurse Name: Janette Jones RN Position: [facility] RN Member Role: Primary Care Nurse Name: Deanne Hayes RN Position: [facility] RN Member Role: Primary Care Nurse Name: Vianney Mcneill RN Position: [facility] RN Member Role: Primary Care Nurse Name: Cindy Evans LPN Position: [facility] RN Member Role: Primary Care Nurse Care Team Related Persons Name: INGE MURRAY Address: home [address] [place] [address] Name: NIK BARTON Address: [place] [address]
--- OUTSIDE RECORDS SUMMARY | 2023-05-02 16:29 | XMS_ITS | Continuity of Care Document ---
Author Name Unknown Organization [facility] Alessandro [facility] lt Address [address] [place] [address]- Care Team Providers Care Roving Technician Name Role Phone Kristin Leticia SIMS Primary Care Physician Encounter [facility] Date(s): 01/23/23 - 02/22/23 [facility] Adult [address] [place] [address]- Allergies, Adverse Reactions, Alerts Substance Reaction Severity [...] radha pneumococcal 20-valent conjugate vaccine 08/27/22 Recorded [id number] 12y+ bivalent booster vax 08/27/22 Recorded SARS-CoV-2 mRNA ([id number]) vax 8 06/29/21 Given SARS-CoV-2 (COVID-19) mRNA [...] 14 03/11/06 Given 1Result Comment: Flu HD [facility]#[id number] 2Result Comment: [facility]-[id number] 3Result Comment: [facility]: [id number] 4Result Comment: [02/28/2017] HD [facility]: [id number] 5[facility] History[facility] 6Admin Note: VIS 12/18/2010 7Admin Note: VIS given 01/02/10 8Result Comment: [facility]-[id number] 9Admin Note: VIS 10Admin Note: VIS-GIVEN 11Admin [...] 0 Refills, Maintenance, 12/03/22 13:26:00 EDT, Powder, [facility] #[id number], 2 puffs Inhalation Every 4 hours,PRN:as needed, 168, cm, 11/21/22 9:25:00 EDT, Height, 75.2, kg,... Start Date: 12/03/22 Status: Ordered amLODIPine 5 mg oral tablet 1 tablet = 5 mg, By Mouth, Daily, # 90 tablet, 1 Refills, Maintenance, 10/07/22 21:43:00 EDT, Tablet, [facility] #[id number], 167.6, cm, 10/07/22 13:14:00 EDT, Height, 74, [...] tablet, 1 Refills, Maintenance, 10/07/22 21:43:00 EDT, [facility] #[id number], 167.6, cm, 10/07/22 13:14:00 EDT, Height, 74, kg, 04/06/22 1:20:00 EST, Dry Weight Start Date: 10/07/22 Status: Ordered Coreg 6.25 mg oral tablet 6.25 mg, 1, tablet, By Mouth, 2 times a day, # 180 tablet, Refills 0, Tot. Refills 0, Maintenance, 01/09/23 20:35:00 EDT, Route to Pharmacy Electronically, [facility] #[id number], 168, cm, 01/08/23 13:26:00 EDT, Height, 75.2, kg, 11/09/22 22:57:0... Start Date: 01/09/23 Status: Ordered ezetimibe 10 mg oral tablet 1 tablet = 10 mg, By Mouth, Daily, # 90 tablet, 1 Refills, Maintenance, 11/22/22 11:47:00 EDT, Tablet, [facility] #[id number], 168, cm, 11/21/22 9:25:00 EDT, Height, 75.2, kg, 11/09/22 22:57:00 EDT, Dry Weight Start Date: 11/22/22 Stop Date: 05/21/23 Status: Ordered Farxiga 10 mg oral tablet 1 tablet = 10 mg, By Mouth, Daily, Increased strength, # 30 tablet, 0 Refills, Maintenance, 01/16/22 9:53:00 EDT, Tablet, [facility] #25469, Increased strength, 168, cm, 12/26/21 15:45:00 EDT, [...] 05/02/22 13:11:00 EST, Route to Pharmacy Electronically, [facility] #[id number], Partial fill upon patient request if the prescription is for a schedule... Start Date: 05/02/22 Stop Date: 10/29/22 Status: Ordered lisinopril 5 mg oral tablet 1, tablet, By Mouth, Daily, # 90 tablet, Refills 0, Maintenance, 02/18/23 7:58:00 EDT, Route to Pharmacy Electronically, [facility] #[id number], 168, cm, 02/17/23 10:42:00 EDT, Height, 75.2, kg,11/09/22 22:57:00 EDT, Dry Weight Start Date: 02/18/23 Status: Ordered metFORMIN 500 mg oral tablet 1 tablet = 500 mg, By Mouth, 2 times a day, for 90 days, # 180 tablet, 1 Refills, Acute 07/18/23 12:00:00 EST, 01/19/23 12:00:00 EDT, Tablet, [facility] #[id number], 168, cm, 01/16/23 8:16:00 EDT, Height, 75.2, kg, 11/09/22 22:57:00 EDT, Dry Weight Start Date: 01/19/23 Stop Date: 07/18/23 Status: Ordered nitroglycerin 0.3 mg sublingual tablet 1 tablet = 0.3 mg, Sublingual, Every 5 minutes, PRN as needed for chest pain, not to exceed 3 doses/15 min--if pain persists, seek medical attention, # 100 tablet, 0 Refills, Maintenance, 12/04/20 10:05:00 EDT, Tablet, [facility] #08270, Par... Start Date: 12/04/20 Status: Ordered oxyCODONE 10 mg oral tablet 1 tablet = 10 mg, By Mouth, Every 4 hours, PRN as needed for pain, Ok to fill less than prescribed amount M48.061, M96.1, # 168 tablet, 0 Refills, Maintenance, 01/28/23 7:30:00 EDT, Tablet, [facility] #[id number], Partial fill upon patient requ... Start Date: 01/28/23 Status: Ordered pantoprazole 40 mg oral delayed [...] 8:36:00 EDT, Inhaler, Route to Pharmacy Electronically, [id number], [facility] #[id number]... 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 [place] 4, 15surgery 1991 16MRI 2006 17possible ITP 18monitor 19Tubular adenoma 2014 Social History Social History Type Response Smoking Status Former smoker; Tobac co use times per day: smoked < 1/2 PPD; Started at age: 18; Stopped at age: 65; entered on: 12/23/13 Sex Patient Care team information Care Team Personnel Name: Philomena Castillo Position: [facility] RN Supv Member Role: Primary Care Nurse Name: Leticia Foster NP Position: [facility] PCO Associate Professional Member Role: PCP Address: Address: [address] [place] [phone]- Name: Namita Barajas RN Position: [facility] RN Member Role: Primary Care Nurse Name: Tasha Back RN Position: [facility] RN Member Role: Primary Care Nurse Name: Jenny Bustillos RN Position: [facility] RN Member Role: Primary Care Nurse Name: Margarita Serrano RN Position: [facility] RN Member Role: Primary Care Nurse Name: Michelle ([facility]) Lillian Position: [facility] composite laminator Member Role: Steel Wheel Engraver Name: Devin Benites RN Position: [facility] RN Member Role: Primary Care Nurse Name: Betsy Millan RN Position: [facility] RN Member Role: Primary Care Nurse Name: Peggy Jansen RN Position: [facility] RN Member Role: Primary Care Nurse Name: Cate Pabon RN Position: [facility] AMB Nurse Member Role: Primary Care Nurse Name: Janette Jones RN Position: [facility] RN Member Role: Primary Care Nurse Name: Deanne Hayes RN Position: [facility] RN Member Role: Primary Care Nurse Name: Vianney Mcneill RN Position: S RN Member Role: Primary Care Nurse Name: Cindy Evans LPN Position: S RN Member Role: Primary Care Nurse Care Team Related Persons Name: INGE MURRAY Address: home [address] [place] [id number] Name: NIK BARTON Address: [place] [address]
--- OUTSIDE RECORDS SUMMARY | 2023-05-02 16:29 | XMS_ITS | Continuity of Care Document ---
Author Name Unknown Organization [facility] Anthony Sidney lt Address [address] [place] [address]- Care Team Providers Care Trailer Sections Assembler Name Role Phone Kristin Leticia SIMS Primary Care Physician [phone] [place] [facility] Date(s): 01/09/23 - 02/08/23 [facility] [address] [place] [address]- Allergies, Adverse Reactions, Alerts Substance Reaction Severity Status Duloxetine 1 rash Active 1GI Immunizations Given and Recorded Vaccine Date Status Refusal Reason pneumococcal 20-valent conjugate vaccine 08/27/22 Recorded [id number] 12y+ bivalent booster vax 08/27/22 Recorded influenza [...] inactivated 6 08/01/10 Gi radha SARS-CoV-2 mRNA (leuhykr-gmqs-nwhtg) vax 7 06/29/21 Given SARS-CoV-2 (COVID-19) mRNA [...] Vaccine (oldterm) 13 03/11/06 Given 1Result Comment: [facility]-[id number] 2Result Comment: [facility]: [id number] 3Result Comment: [02/28/2017] HD [facility]: 61173-469-88 [facility] 5Admin Note: VIS 12/18/2010 6Admin Note: VIS given 01/02/10 7Result Comment: [facility]-[id number] 8Admin Note: VIS 9Admin Note: VIS-GIVEN 10Admin [...] 0 Refills, Maintenance, 12/03/22 13:26:00 EDT, Powder, [facility] #[id number], 2 puffs Inhalation Every 4 hours,PRN:as needed, 168, cm, 11/21/22 9:25:00 EDT, Height, 75.2, kg,... Start Date: 12/03/22 Status: Ordered amLODIPine 5 mg oral tablet 1 tablet = 5 mg, By Mouth, Daily, # 90 tablet, 1 Refills, Maintenance, 10/07/22 21:43:00 EDT, Tablet, [facility] #[id number], 167.6, cm, 10/07/22 13:14:00 EDT, Height, 74, [...] tablet, 1 Refills, Maintenance, 10/07/22 21:43:00 EDT, [facility] #[id number], 167.6, cm, 10/07/22 13:14:00 EDT, Height, 74, kg, 04/06/22 1:20:00 EST, Dry Weight Start Date: 10/07/22 Status: Ordered Coreg 6.25 mg oral tablet 6.25 mg, 1, tablet, By Mouth, 2 times a day, # 180 tablet, Refills 0, Tot. Refills 0, Maintenance, 01/09/23 20:35:00 EDT, Route to Pharmacy Electronically, [facility] #[id number], 168, cm, 01/08/23 13:26:00 EDT, Height, 75.2, kg, 11/09/22 22:57:0... Start Date: 01/09/23 Status: Ordered ezetimibe 10 mg oral tablet 1 tablet = 10 mg, By Mouth, Daily, # 90 tablet, 1 Refills, Maintenance, 11/22/22 11:47:00 EDT, Tablet, [facility] #[id number], 168, cm, 11/21/22 9:25:00 EDT, Height, 75.2, kg, 11/09/22 22:57:00 EDT, Dry Weight Start Date: 11/22/22 Stop Date: 05/21/23 Status: Ordered Farxiga 10 mg oral tablet 1 tablet = 10 mg, By Mouth, Daily, Increased strength, # 30 tablet, 0 Refills, Maintenance, 01/16/22 9:53:00 EDT, Tablet, [facility] #[id number], Increased strength, 168, cm, 12/26/21 15:45:00 EDT, [...] 05/02/22 13:11:00 EST, Route to Pharmacy Electronically, [facility] #[id number], Partial fill upon patient request if the prescription is for a schedule... Start Date: 05/02/22 Stop Date: 10/29/22 Status: Ordered lisinopril 5 mg oral tablet 5 mg, 1, tablet, By Mouth, Daily, # 90 tablet, Refills 3, Tot. Refills 3, Maintenance, 03/10/22 22:37:00 EDT, Route to Pharmacy Electronically, [facility] #[id number], Partial fill upon patient request if the prescription is for a schedule II opi... Start Date: 03/10/22 Status: Ordered metFORMIN 500 mg oral tablet 1 tablet = 500 mg, By Mouth, 2 times a day, for 90 days, # 180 tablet, 1 Refills, Acute 07/18/23 12:00:00 EST, 01/19/23 12:00:00 EDT, Tablet, [facility] #[id number], 168, cm, 01/16/23 8:16:00 EDT, Height, 75.2, kg, 11/09/22 22:57:00 EDT, Dry Weight Start Date: 01/19/23 Stop Date: 07/18/23 Status: Ordered nitroglycerin 0.3 mg sublingual tablet 1 tablet = 0.3 mg, Sublingual, Every 5 minutes, PRN as needed for chest pain, not to exceed 3 doses/15 min--if pain persists, seek medical attention, # 100 tablet, 0 Refills, Maintenance, 12/04/20 10:05:00 EDT, Tablet, [facility] #[id number], Par... Start Date: 12/04/20 Status: Ordered oxyCODONE 10 mg oral tablet 1 tablet = 10 mg, By Mouth, Every 4 hours, PRN as needed for pain, Ok to fill less than prescribed amount M48.061, M96.1, # 168 tablet, 0 Refills, Maintenance, 01/28/23 7:30:00 EDT, Tablet, [facility] #[id number], Partial fill upon patient requ... Start Date: [...] 8:36:00 EDT, Inhaler, Route to Pharmacy Electronically, [id number], [facility] #[id number]... 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 3no showurology 4bx dec 2012 5fev1 89% 6colonoscopy 2015,mild 7refer teaching 8neg bx 9BIOPSY PLANNED 10DR anish addressing 11had viagra past 12care ploan reviewed 13comm 2 14PHQ9;2. [place] 4, 15surgery 1992 16MRI 2006 17possible ITP 18monitor 19Tubular adenoma 2014 Social History Social History Type Response Smoking Status Former smoker; Tobac co use times per day: smoked < 1/2 PPD; Started at age: 18; Stopped at age: 65; entered on: 12/23/13 Sex Patient Care team information Care Team Personnel Name: Philomena Castillo Position: [facility] RN Supv Member Role: Primary Care Nurse Name: Leticia Foster NP Position: [facility] PCO Associate Professional Member Role: PCP Address: Address: [address] [place] [address] Name: Namita Barajas RN Position: [facility] RN Member Role: Primary Care Nurse Name: Tasha Back RN Position: [facility] RN Member Role: Primary Care Nurse Name: Jenny Bustillos RN Position: [facility] RN Member Role: Primary Care Nurse Name: Margarita Serrano RN Position: S RN Member Role: Primary Care Nurse Name: Michelle ([employer]) Lillian Position: [facility] outside sales engineer Member Role: Banquet Houseperson Name: Devin Benites RN Position: [facility] RN Member Role: Primary Care Nurse Name: Betsy Millan RN Position: [facility] RN Member Role: Primary Care Nurse Name: Peggy Jansen RN Position: [facility] RN Member Role: Primary Care Nurse Name: Cate Pabon RN Position: [facility] AMB Nurse Member Role: Primary Care Nurse Name: Janette Jones RN Position: [facility] RN Member Role: Primary Care Nurse Name: Deanne Hayes RN Position: [facility] RN Member Role: Primary Care Nurse Name: Vianney Mcneill RN Position: [facility] RN Member Role: Primary Care Nurse Name: Cindy Evans LPN Position: [facility] RN Member Role: Primary Care Nurse Care Team Related Persons Name: INGE MURRAY Address: home [address] [place] [address] Name: NIK BARTON Address: [place] [address]
--- OUTSIDE RECORDS SUMMARY | 2023-05-02 16:29 | XMS_ITS | Continuity of Care Document ---
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%(Discharge Diagnosis) - 01/16/23 ASHD S/P CABG(Discharge Diagnosis) - 01/16/23 Benign Essential Hypertension(Discharge Diagnosis) - 01/16/23 Chronic kidney disease, stage 2 (mild)(Discharge Diagnosis) - 01/16/23 Attending Physician: Leticia Fosetr NP Allergies, Adverse Reactions, Alerts Substance Reaction Severity Status Duloxetine 1 rash Active 1GI Immunizations Given and Recorded Vaccine Date Status Refusal Reason pneumococcal 20-valent conjugate vaccine 08/27/22 Recorded [id number] 12y+ bivalent booster vax 08/27/22 Recorded influenza [...] inactivated 6 08/01/10 Gi radha SARS-CoV-2 mRNA (rmvaxqp-jphu-gmpvh) vax 7 06/29/21 Given SARS-CoV-2 (COVID-19) mRNA [...] Vaccine (oldterm) 13 03/11/06 Given 1Result Comment: [facility]-[id number] 2Result Comment: [facility]: [id number] 3Result Comment: [02/28/2017] HD [facility]: 43698-470-39 4[facility] 5Admin Note: VIS 12/18/2010 6Admin Note: VIS given 01/02/10 7Result Comment: [facility]-[id number] 8Admin Note: VIS 9Admin Note: VIS-GIVEN 10Admin [...] 0 Refills, Maintenance, 12/03/22 13:26:00 EDT, Powder, [facility] #[id number], 2 puffs Inhalation Every 4 hours,PRN:as needed, 168, cm, 11/21/22 9:25:00 EDT, Height, 75.2, kg,... Start Date: 12/03/22 Status: Ordered amLODIPine 5 mg oral tablet 1 tablet = 5 mg, By Mouth, Daily, # 90 tablet, 1 Refills, Maintenance, 10/07/22 21:43:00 EDT, Tablet, [facility] #[id number], 167.6, cm, 10/07/22 13:14:00 EDT, Height, 74, [...] tablet, 1 Refills, Maintenance, 10/07/22 21:43:00 EDT, [facility] #[id number], 167.6, cm, 10/07/22 13:14:00 EDT, Height, 74, kg, 04/06/22 1:20:00 EST, Dry Weight Start Date: 10/07/22 Status: Ordered benzonatate 100 mg oral capsule 1 capsule = 100 mg, By Mouth, Daily at bedtime, PRN Cough, for 14 days, # 14 capsule, 0 Refills, Acute 01/30/23 8:44:00 EDT, 01/16/23 8:44:00 EDT, Capsule, [facility] #[id number], 168, cm, 01/16/23 8:16:00 EDT, Height, 75.2, kg, 11/09/22 22:57:00... Start Date: 01/16/23 Stop Date: 01/30/23 Status: Ordered Coreg 6.25 mg oral tablet 6.25 mg, 1, tablet, By Mouth, 2 times a day, # 180 tablet, Refills 0, Tot. Refills 0, Maintenance, 01/09/23 20:35:00 EDT, Route to Pharmacy Electronically, [facility] #[id number], 168, cm, 01/08/23 13:26:00 EDT, Height, 75.2, kg, 11/09/22 22:57:0... Start Date: 01/09/23 Status: Ordered ezetimibe 10 mg oral tablet 1 tablet = 10 mg, By Mouth, Daily, # 90 tablet, 1 Refills, Maintenance, 11/22/22 11:47:00 EDT, Tablet, [facility] #[id number], 168, cm, 11/21/22 9:25:00 EDT, Height, 75.2, kg, 11/09/22 22:57:00 EDT, Dry Weight Start Date: 11/22/22 Stop Date: 05/21/23 Status: Ordered Farxiga 10 mg oral tablet 1 tablet = 10 mg, By Mouth, Daily, Increased strength, # 30 tablet, 0 Refills, Maintenance, 01/16/22 9:53:00 EDT, Tablet, [facility] #[id number], Increased strength, 168, cm, 12/26/21 15:45:00 EDT, [...] 05/02/22 13:11:00 EST, Route to Pharmacy Electronically, [facility] #[id number], Partial fill upon patient request if the prescription is for a schedule... Start Date: 05/02/22 Stop Date: 10/29/22 Status: Ordered lisinopril 5 mg oral tablet 5 mg, 1, tablet, By Mouth, Daily, # 90 tablet, Refills 3, Tot. Refills 3, Maintenance, 03/10/22 22:37:00 EDT, Route to Pharmacy Electronically, [facility] #[id number], Partial fill upon patient request if the prescription is for a schedule II opi... Start Date: 03/10/22 Status: Ordered metFORMIN 500 mg oral tablet 1 tablet = 500 mg, By Mouth, 2 times a day, for 90 days, # 180 tablet, 1 Refills, Acute 07/18/23 12:00:00 EST, 01/19/23 12:00:00 EDT, Tablet, [facility] #[id number], 168, cm, 01/16/23 8:16:00 EDT, Height, 75.2, kg, 11/09/22 22:57:00 EDT, Dry Weight Start Date: 01/19/23 Stop Date: 07/18/23 Status: Ordered nitroglycerin 0.3 mg sublingual tablet 1 tablet = 0.3 mg, Sublingual, Every 5 minutes, PRN as needed for chest pain, not to exceed 3 doses/15 min--if pain persists, seek medical attention, # 100 tablet, 0 Refills, Maintenance, 12/04/20 10:05:00 EDT, Tablet, [facility] #[id number], Par... Start Date: 12/04/20 Status: Ordered oxyCODONE 10 mg oral tablet 1 tablet = 10 mg, By Mouth, Every 4 hours, PRN as needed for pain, Ok to fill less than prescribed amount M48.061, M96.1, # 168 tablet, 0 Refills, Maintenance, 12/27/22 9:57:00 EDT, Tablet, [facility] #[id number], Partial fill upon patient requ... Start Date: [...] 8:36:00 EDT, Inhaler, Route to Pharmacy Electronically, [id number], [facility] #[id number]... 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 [place] 4, 15surgery 1991 16MRI 2006 17possible ITP 18monitor 19Tubular adenoma 2014 Diagnosis Diagnosis Type Effective Dates Health Status Clinical Service Informant 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% Discharge Diagnosis 01/16/23 ASHD S/P CABG Discharge Diagnosis 01/16/23 Benign Essential Hypertension Discharge Diagnosis 01/16/23 Chronic kidney disease, stage 2 (mild) Discharge Diagnosis 01/16/23 Vital Signs Most recent to oldest [Reference Range]: 1 Height 168 cm (01/16/23 8:16 AM) Weight 72.6 kg (01/16/23 8:16 AM) Oxygen Saturation [94-100 %] 98 % (01/16/23 8:16 AM) Pulse Rate [55-90 bpm] 62 bpm (01/16/23 8:16 AM) Body Mass Index [18.5-24.99 kg/m2] 25.72 kg/m2 *H* (01/16/23 8:16 AM) Blood Pressure [90-138/55-84 mm Hg] 108/ 67mm Hg (01/16/23 8:16 AM) Temperature [96.8-100.4 DegF] 97.8 DegF (01/16/23 8:16 AM) Mode of Delivery (Oxygen) Room air (01/16/23 8:16 AM) Blood pressure sites Arm, left (01/16/23 8:16 AM) Temperature Route Oral (01/16/23 8:16 AM) Weight Obtained Via Standing scale (01/16/23 8:16 AM) Social History Social History Type Response Smoking Status Former smoker; Tobac co use times per day: smoked < 1/2 PPD; Started at age: 18; Stopped at age: 65; entered on: 12/23/13 Sex Patient Care team information Care Team Personnel Name: Philomena Castillo Position: [facility] RN Supv Member Role: Primary Care Nurse Name: Leticia Foster NP Position: [facility] PCO Associate Professional Member Role: PCP Address: Address: [address] [place] [id number] Name: Namita Barajas RN Position: [facility] RN Member Role: Primary Care Nurse Name: Tasha Back RN Position: S RN Member Role: Primary Care Nurse Name: Jenny Bustillos RN Position: S RN Member Role: Primary Care Nurse Name: Margarita Serrano RN Position: S RN Member Role: Primary Care Nurse Name: Lillian Martinez Position: [facility] field counsel Member Role: Signaling Design Engineer Name: Devin Benites RN Position: S RN Member Role: Primary Care Nurse Name: Betsy Millan RN Position: S RN Member Role: Primary Care Nurse Name: Peggy Jansen RN Position: [facility] RN Member Role: Primary Care Nurse Name: Cate Pabon RN Position: [facility] AMB Nurse Member Role: Primary Care Nurse Name: Janette Jones RN Position: [facility] RN Member Role: Primary Care Nurse Name: Deanne Hayes RN Position: [facility] RN Member Role: Primary Care Nurse Name: Vianney Mcneill RN Position: [facility] RN Member Role: Primary Care Nurse Name: Cindy Evans LPN Position: [facility] RN Member Role: Primary Care Nurse Care Team Related Persons Name: INGE MURRAY Address: home [address] [place] [address] Name: NIK BARTON Address: [place] [address]
--- OUTSIDE RECORDS SUMMARY | 2023-05-02 16:29 | XMS_ITS | Continuity of Care Document ---
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 Name Role Phone Kristin Leticia SIMS Primary Care Physician Encounter [facility] Date(s): 12/19/22 - 01/18/23 [facility] [place] [address] [place] [address]- Allergies, Adverse Reactions, Alerts Substance Reaction Severity Status Duloxetine 1 rash Active 1GI Immunizations Given and Recorded Vaccine Date Status Refusal Reason pneumococcal 20-valent conjugate vaccine 08/27/22 Recorded [id number] 12y+ bivalent booster vax 08/27/22 Recorded influenza [...] inactivated 6 08/01/10 Gi radha SARS-CoV-2 mRNA (bioecuh-plhr-rufec) vax 7 06/29/21 Given SARS-CoV-2 (COVID-19) mRNA [...] Vaccine (oldterm) 13 03/11/06 Given 1Result Comment: [facility]-[id number] 2Result Comment: [facility]: 52529-961-22 3Result Comment: [02/28/2017] HD [facility]: 00417-772-39 4[facility] 5Admin Note: VIS 12/18/2010 6Admin Note: VIS given 01/02/10 7Result Comment: [facility]-[id number] 8Admin Note: VIS 9Admin Note: VIS-GIVEN 10Admin [...] 0 Refills, Maintenance, 12/03/22 13:26:00 EDT, Powder, [facility] #[id number], 2 puffs Inhalation Every 4 hours,PRN:as needed, 168, cm, 11/21/22 9:25:00 EDT, Height, 75.2, kg,... Start Date: 12/03/22 Status: Ordered amLODIPine 5 mg oral tablet 1 tablet = 5 mg, By Mouth, Daily, # 90 tablet, 1 Refills, Maintenance, 10/07/22 21:43:00 EDT, Tablet, [facility] #[id number], 167.6, cm, 10/07/22 13:14:00 EDT, Height, 74, [...] tablet, 1 Refills, Maintenance, 10/07/22 21:43:00 EDT, [facility] #65106, 167.6, cm, 10/07/22 13:14:00 EDT, Height, 74, kg, 04/06/22 1:20:00 EST, Dry Weight Start Date: 10/07/22 Status: Ordered benzonatate 100 mg oral capsule 1 capsule = 100 mg, By Mouth, Daily at bedtime, PRN Cough, for 14 days, # 14 capsule, 0 Refills, Acute 01/30/23 8:44:00 EDT, 01/16/23 8:44:00 EDT, Capsule, [facility] #04291, 168, cm, 01/16/23 8:16:00 EDT, Height, 75.2, kg, 11/09/22 22:57:00... Start Date: 01/16/23 Stop Date: 01/30/23 Status: Ordered Coreg 6.25 mg oral tablet 6.25 mg, 1, tablet, By Mouth, 2 times a day, # 180 tablet, Refills 0, Tot. Refills 0, Maintenance, 01/09/23 20:35:00 EDT, Route to Pharmacy Electronically, [facility] #[id number], 168, cm, 01/08/23 13:26:00 EDT, Height, 75.2, kg, 11/09/22 22:57:0... Start Date: 01/09/23 Status: Ordered ezetimibe 10 mg oral tablet 1 tablet = 10 mg, By Mouth, Daily, # 90 tablet, 1 Refills, Maintenance, 11/22/22 11:47:00 EDT, Tablet, [facility] #[id number], 168, cm, 11/21/22 9:25:00 EDT, Height, 75.2, kg, 11/09/22 22:57:00 EDT, Dry Weight Start Date: 11/22/22 Stop Date: 05/21/23 Status: Ordered Farxiga 10 mg oral tablet 1 tablet = 10 mg, By Mouth, Daily, Increased strength, # 30 tablet, 0 Refills, Maintenance, 01/16/22 9:53:00 EDT, Tablet, [facility] #[id number], Increased strength, 168, cm, 12/26/21 15:45:00 EDT, [...] 05/02/22 13:11:00 EST, Route to Pharmacy Electronically, [facility] #[id number], Partial fill upon patient request if the prescription is for a schedule... Start Date: 05/02/22 Stop Date: 10/29/22 Status: Ordered lisinopril 5 mg oral tablet 5 mg, 1, tablet, By Mouth, Daily, # 90 tablet, Refills 3, Tot. Refills 3, Maintenance, 03/10/22 22:37:00 EDT, Route to Pharmacy Electronically, [facility] #[id number], Partial fill upon patient request if the prescription is for a schedule II opi... Start Date: 03/10/22 Status: Ordered metFORMIN 500 mg oral tablet See Instructions, 1 tablet by mouth daily x 1 week then increase to 1 tablet 2 times a day, # 180 tablet, 0 Refills, Acute 01/19/23 12:00:00 EDT, 10/07/22 21:12:00 EDT, Tablet, [facility] #[id number], Partial fill upon patient request if the pres... Start Date: 10/07/22 Stop Date: 01/19/23 Status: Ordered metFORMIN 500 mg oral tablet 1 tablet = 500 mg, By Mouth, 2 times a day, for 90 days, # 180 tablet, 1 Refills, Acute 07/18/23 12:00:00 EST, 01/19/23 12:00:00 EDT, Tablet, [facility] #[id number], 168, cm, 01/16/23 8:16:00 EDT, Height, 75.2, kg, 11/09/22 22:57:00 EDT, Dry Weight Start Date: 01/19/23 Stop Date: 07/18/23 Status: Ordered nitroglycerin 0.3 mg sublingual tablet 1 tablet = 0.3 mg, Sublingual, Every 5 minutes, PRN as needed for chest pain, not to exceed 3 doses/15 min--if pain persists, seek medical attention, # 100 tablet, 0 Refills, Maintenance, 12/04/20 10:05:00 EDT, Tablet, [facility] #[id number], Par... Start Date: 12/04/20 Status: Ordered oxyCODONE 10 mg oral tablet 1 tablet = 10 mg, By Mouth, Every 4 hours, PRN as needed for pain, Ok to fill less than prescribed amount M48.061, M96.1, # 168 tablet, 0 Refills, Maintenance, 12/27/22 9:57:00 EDT, Tablet, [facility] #[id number], Partial fill upon patient requ... Start Date: [...] 8:36:00 EDT, Inhaler, Route to Pharmacy Electronically, [id number], [facility] #[id number]... 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 [place] 4, 15surgery 1991 16MRI 2006 17possible ITP 18monitor 19Tubular adenoma 2015 Social History Social History Type Response Smoking Status Former smoker; Tobac co use times per day: smoked < 1/2 PPD; Started at age: 18; Stopped at age: 65; entered on: 12/23/13 Sex Patient Care team information Care Team Personnel Name: Philomena Castillo Position: [facility] Supv Member Role: Primary Care Nurse Name: Leticia Foster NP Position: [facility] PCO Associate Professional Member Role: PCP Address: Address: [address] [place] [id number] [place] Name: Namita Barajas RN Position: [facility] RN Member Role: Primary Care Nurse Name: Tasha Back RN Position: [facility] RN Member Role: Primary Care Nurse Name: Jenny Bustillos RN Position: [facility] RN Member Role: Primary Care Nurse Name: Margarita Serrano RN Position: [facility] RN Member Role: Primary Care Nurse Name: Lillian Martinez Position: [facility] printer's assistant Member Role: Body Finisher Name: Devin Benites RN Position: [facility] RN Member Role: Primary Care Nurse Name: Betsy Millan RN Position: [facility] RN Member Role: Primary Care Nurse Name: Peggy Jansen RN Position: [facility] RN Member Role: Primary Care Nurse Name: Cate Pabon RN Position: [facility] AMB Nurse Member Role: Primary Care Nurse Name: Janette Jones RN Position: [facility] RN Member Role: Primary Care Nurse Name: Deanne Hayes RN Position: [facility] RN Member Role: Primary Care Nurse Name: Vianney Mcneill RN Position: [facility] RN Member Role: Primary Care Nurse Name: Cindy Evans LPN Position: [facility] RN Member Role: Primary Care Nurse Care Team Related Persons Name: INGE MURRAY Address: [address] [place] [address] Name: NIK BARTON Address: [place] [address]
--- OUTSIDE RECORDS SUMMARY | 2023-05-02 16:29 | XMS_ITS | Continuity of Care Document ---
Author Name Unknown Organization [facility] Alessandro Cruz Sidney lt Address [address] [place] [address]- Care Team Providers Care Recruiting Scheduler Name Role Phone Kristin Leticia SIMS Primary Care Physician [facility] Date(s): 03/21/23 - 04/20/23 [facility] Anthony Adult [address] [place] [address]- Allergies, Adverse Reactions, Alerts Substance Reaction Severity [...] radha pneumococcal 20-valent conjugate vaccine 08/27/22 Recorded [id number] 12y+ bivalent booster vax 08/27/22 Recorded SARS-CoV-2 mRNA (orxubuy-pbng-duloz) vax 8 06/29/21 Given SARS-CoV-2 (COVID-19) mRNA [...] 14 03/11/06 Given 1Result Comment: Flu HD [facility]#[id number] 2Result Comment: [facility]-[id number] 3Result Comment: [facility]: 58277-766-72 4Result Comment: [02/28/2017] HD [facility]: 84193-355-13 5[facility] 6Admin Note: VIS 12/18/2010 7Admin Note: VIS given 01/02/10 8Result Comment: [facility]-[id number] 9Admin Note: VIS 10Admin Note: VIS-GIVEN 11Admin [...] 0 Refills, Maintenance, 12/03/22 13:26:00 EDT, Powder, [facility] #[id number], 2 puffs Inhalation Every 4 hours,PRN:as needed, 168, cm, 11/21/22 9:25:00 EDT, Height, 75.2, kg,... Start Date: 12/03/22 Status: Ordered amLODIPine 5 mg oral tablet 1 tablet = 5 mg, By Mouth, Daily, # 90 tablet, 1 Refills, Maintenance, 10/07/22 21:43:00 EDT, Tablet, [facility] #[id number], 167.6, cm, 10/07/22 13:14:00 EDT, Height, 74, [...] tablet, 1 Refills, Maintenance, 03/21/23 12:54:00 EDT, [facility] #[id number], 168, cm, 02/17/23 10:42:00 EDT, Height, 75.2, kg, 11/09/22 22:57:00 EDT, Dry Weight Start Date: 03/21/23 Status: Ordered Coreg 6.25 mg oral tablet 6.25 mg, 1, tablet, By Mouth, 2 times a day, # 180 tablet, Refills 0, Tot. Refills 0, Maintenance, 01/09/23 20:35:00 EDT, Route to Pharmacy Electronically, [facility] #[id number], 168, cm, 01/08/23 13:26:00 EDT, Height, 75.2, kg, 11/09/22 22:57:0... Start Date: 01/09/23 Status: Ordered ezetimibe 10 mg oral tablet 1 tablet = 10 mg, By Mouth, Daily, for 90 days, # 90 tablet, 1 Refills, Hard Stop 05/21/23 11:47:00EST, 11/22/22 11:47:00 EDT, Tablet, [facility] #[id number], 168, cm, 11/21/22 9:25:00 EDT, Height, 75.2, kg, 11/09/22 22:57:00 EDT, Dry Weight Start Date: 11/22/22 Stop Date: 05/21/23 Status: Ordered ezetimibe 10 mg oral tablet 1 tablet = 10 mg, By Mouth, Daily, # 90 tablet, 1 Refills, Maintenance, 05/21/23 11:47:00 EST, Tablet, [facility] #[id number], 165.5, cm, 04/09/23 13:02:00 EST, Height, 75.2, kg, 11/09/22 22:57:00 EDT, Dry Weight Start Date: 05/21/23 Stop Date: 11/17/23 Status: Ordered Farxiga 10 mg oral tablet 1 tablet = 10 mg, By Mouth, Daily, Increased strength, # 30 tablet, 0 Refills, Maintenance, 01/16/22 9:53:00 EDT, Tablet, [facility] #[id number], Increased strength, 168, cm, 12/26/21 15:45:00 EDT, [...] 05/02/22 13:11:00 EST, Route to Pharmacy Electronically, [facility] #[id number], Partial fill upon patient request if the prescription is for a schedule... Start Date: 05/02/22 Stop Date: 10/29/22 Status: Ordered lisinopril 5 mg oral tablet 1, tablet, By Mouth, Daily, # 90 tablet, Refills 0, Maintenance, 02/18/23 7:58:00 EDT, Route to Pharmacy Electronically, [facility] #[id number], 168, cm, 02/17/23 10:42:00 EDT, Height, 75.2, kg,11/09/22 22:57:00 EDT, Dry Weight Start Date: 02/18/23 Status: Ordered metFORMIN 500 mg oral tablet 1 tablet = 500 mg, By Mouth, 2 times a day, for 90 days, # 180 tablet, 1 Refills, Acute 07/18/23 12:00:00 EST, 01/19/23 12:00:00 EDT, Tablet, [facility] #[id number], 168, cm, 01/16/23 8:16:00 EDT, Height, 75.2, kg, 11/09/22 22:57:00 EDT, Dry Weight Start Date: 01/19/23 Stop Date: 07/18/23 Status: Ordered nitroglycerin 0.3 mg sublingual tablet 1 tablet = 0.3 mg, Sublingual, Every 5 minutes, PRN as needed for chest pain, not to exceed 3 doses/15 min--if pain persists, seek medical attention, # 100 tablet, 0 Refills, Maintenance, 12/04/20 10:05:00 EDT, Tablet, [facility] #[id number], Par... Start Date: 12/04/20 Status: Ordered oxyCODONE 10 mg oral tablet 1 tablet = 10 mg, By Mouth, Every 4 hours, PRN as needed for pain, Ok to fill less than prescribed amount M48.061, M96.1, # 168 tablet, 0 Refills, Maintenance, 03/24/23 15:53:00 EDT, Tablet, [facility] #[id number], Partial fill upon patient req... Start Date: [...] 8:36:00 EDT, Inhaler, Route to Pharmacy Electronically, [id number], [facility] #[id number]... 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 [place] 4, 15surgery 1991 16MRI 2006 17possible ITP [...] Care Nurse Name: Leticia Foster NP Position: [facility] PCO Associate Professional Member Role: PCP Address: Address: [address] [place] [address]- Name: Namita Barajas RN Position: S RN Member Role: Primary Care Nurse Name: Tasha Back RN Position: S RN Member Role: Primary Care Nurse Name: Jenny Bustillos RN Position: S RN Member Role: Primary Care Nurse Name: Margarita Serrano RN Position: S RN Member Role: Primary Care Nurse Name: Michelle ([facility]) Lillian Position: [facility] scenery builder Member Role: Relationship Executive Name: Devin Benites RN Position: [facility] RN Member Role: Primary Care Nurse Name: Betsy Millan RN Position: [facility] RN Member Role: Primary Care Nurse Name: Peggy Jansen RN Position: [facility] RN Member Role: Primary Care Nurse Name: Cate Pabon RN Position: [facility] AMB Nurse Member Role: Primary Care Nurse Name: Janette Jones RN Position: [facility] RN Member Role: Primary Care Nurse Name: Deanne Hayes RN Position: [facility] RN Member Role: Primary Care Nurse Name: Vianney Mcneill RN Position: [facility] RN Member Role: Primary Care Nurse Name: Cindy Evans LPN Position: [facility] RN Member Role: Primary Care Nurse Care Team Related Persons Name: INGE MURRAY Address: home [address] [place] [id number] Name: NIK BARTON Address: [place] [address]
--- OUTSIDE RECORDS SUMMARY | 2023-05-02 16:30 | XMS_ITS | Continuity of Care Document ---
Author Name Unknown Organization [facility] Anthony Sidney lt Address [address] [place] [address]- Care Team Providers Care Buttermaker Name Role Phone Kristin Leticia SIMS Primary Care Physician [facility] Date(s): 01/09/23 - 02/08/23 [facility] Adult [address] [place] [address]- Allergies, Adverse Reactions, Alerts Substance Reaction Severity Status Duloxetine 1 rash Active 1GI Immunizations Given and Recorded Vaccine Date Status Refusal Reason pneumococcal 20-valent conjugate vaccine 08/27/22 Recorded [id number] 12y+ bivalent booster vax 08/27/22 Recorded influenza [...] inactivated 6 08/01/10 Gi radha SARS-CoV-2 mRNA (vvxhckm-kxgg-hmpsc) vax 7 06/29/21 Given SARS-CoV-2 (COVID-19) mRNA [...] Vaccine (oldterm) 13 03/11/06 Given 1Result Comment: [facility]-[id number] 2Result Comment: [facility]: [id number] 3Result Comment: [02/28/2017] HD [facility]: 81870-852-20 4[facility] 5Admin Note: VIS 12/18/2010 6Admin Note: VIS given 01/02/10 7Result Comment: [facility]-[id number] 8Admin Note: VIS 9Admin Note: VIS-GIVEN 10Admin [...] 0 Refills, Maintenance, 12/03/22 13:26:00 EDT, Powder, [facility] #[id number], 2 puffs Inhalation Every 4 hours,PRN:as needed, 168, cm, 11/21/22 9:25:00 EDT, Height, 75.2, kg,... Start Date: 12/03/22 Status: Ordered amLODIPine 5 mg oral tablet 1 tablet = 5 mg, By Mouth, Daily, # 90 tablet, 1 Refills, Maintenance, 10/07/22 21:43:00 EDT, Tablet, [facility] #[id number], 167.6, cm, 10/07/22 13:14:00 EDT, Height, 74, [...] tablet, 1 Refills, Maintenance, 10/07/22 21:43:00 EDT, [facility] #[id number], 167.6, cm, 10/07/22 13:14:00 EDT, Height, 74, kg, 04/06/22 1:20:00 EST, Dry Weight Start Date: 10/07/22 Status: Ordered Coreg 6.25 mg oral tablet 6.25 mg, 1, tablet, By Mouth, 2 times a day, # 180 tablet, Refills 0, Tot. Refills 0, Maintenance, 01/09/23 20:35:00 EDT, Route to Pharmacy Electronically, [facility] #[id number], 168, cm, 01/08/23 13:26:00 EDT, Height, 75.2, kg, 11/09/22 22:57:0... Start Date: 01/09/23 Status: Ordered ezetimibe 10 mg oral tablet 1 tablet = 10 mg, By Mouth, Daily, # 90 tablet, 1 Refills, Maintenance, 11/22/22 11:47:00 EDT, Tablet, [facility] #22845, 168, cm, 11/21/22 9:25:00 EDT, Height, 75.2, kg, 11/09/22 22:57:00 EDT, Dry Weight Start Date: 11/22/22 Stop Date: 05/21/23 Status: Ordered Farxiga 10 mg oral tablet 1 tablet = 10 mg, By Mouth, Daily, Increased strength, # 30 tablet, 0 Refills, Maintenance, 01/16/22 9:53:00 EDT, Tablet, [facility] #46913, Increased strength, 168, cm, 12/26/21 15:45:00 EDT, [...] 05/02/22 13:11:00 EST, Route to Pharmacy Electronically, [facility] #[id number], Partial fill upon patient request if the prescription is for a schedule... Start Date: 05/02/22 Stop Date: 10/29/22 Status: Ordered lisinopril 5 mg oral tablet 5 mg, 1, tablet, By Mouth, Daily, # 90 tablet, Refills 3, Tot. Refills 3, Maintenance, 03/10/22 22:37:00 EDT, Route to Pharmacy Electronically, [facility] #[id number], Partial fill upon patient request if the prescription is for a schedule II opi... Start Date: 03/10/22 Status: Ordered metFORMIN 500 mg oral tablet 1 tablet = 500 mg, By Mouth, 2 times a day, for 90 days, # 180 tablet, 1 Refills, Acute 07/18/23 12:00:00 EST, 01/19/23 12:00:00 EDT, Tablet, [facility] #[id number], 168, cm, 01/16/23 8:16:00 EDT, Height, 75.2, kg, 11/09/22 22:57:00 EDT, Dry Weight Start Date: 01/19/23 Stop Date: 07/18/23 Status: Ordered nitroglycerin 0.3 mg sublingual tablet 1 tablet = 0.3 mg, Sublingual, Every 5 minutes, PRN as needed for chest pain, not to exceed 3 doses/15 min--if pain persists, seek medical attention, # 100 tablet, 0 Refills, Maintenance, 12/04/20 10:05:00 EDT, Tablet, [facility] #[id number], Par... Start Date: 12/04/20 Status: Ordered oxyCODONE 10 mg oral tablet 1 tablet = 10 mg, By Mouth, Every 4 hours, PRN as needed for pain, Ok to fill less than prescribed amount M48.061, M96.1, # 168 tablet, 0 Refills, Maintenance, 01/28/23 7:30:00 EDT, Tablet, [facility] #[id number], Partial fill upon patient requ... Start Date: [...] 8:36:00 EDT, Inhaler, Route to Pharmacy Electronically, [id number], [facility] #[id number]... 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 [place] 4, 15surgery 1992 16MRI 2006 17possible ITP 18monitor 19Tubular adenoma 2014 Social History Social History Type Response Smoking Status Former smoker; Tobac co use times per day: smoked < 1/2 PPD; Started at age: 18; Stopped at age: 65; entered on: 12/23/13 Sex Patient Care team information Care Team Personnel Name: Philomena Castillo Position: [facility] RN Supv Member Role: Primary Care Nurse Name: Leticia Foster NP Position: [facility] PCO Associate Professional Member Role: PCP Address: Address: [address] [place] [id number] Name: Namita Barajas RN Position: [facility] RN Member Role: Primary Care Nurse Name: Tasha Back RN Position: [facility] RN Member Role: Primary Care Nurse Name: Jenny Bustillos RN Position: [facility] RN Member Role: Primary Care Nurse Name: Margarita Serrano RN Position: S RN Member Role: Primary Care Nurse Name: Michelle ([facility]) Lillian Position: [facility] yarding engineer Member Role: Financial Planning Analyst Name: Devin Benites RN Position: [facility] RN Member Role: Primary Care Nurse Name: Betsy Millan RN Position: [facility] RN Member Role: Primary Care Nurse Name: Peggy Jansen RN Position: [facility] RN Member Role: Primary Care Nurse Name: Cate Pabon RN Position: [facility] AMB Nurse Member Role: Primary Care Nurse Name: Jantete Jones RN Position: [facility] RN Member Role: Primary Care Nurse Name: Deanne Hayes RN Position: [facility] RN Member Role: Primary Care Nurse Name: Vianney Mcneill RN Position: [facility] RN Member Role: Primary Care Nurse Name: Cindy Evans LPN Position: [facility] RN Member Role: Primary Care Nurse Care Team Related Persons Name: INGE MURRAY Address: home [address] [address] Name: NIK BARTON Address: [place] [address]
--- OUTSIDE RECORDS SUMMARY | 2023-05-02 16:30 | XMS_ITS | Continuity of Care Document ---
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 Erector Operator Name Role Phone Kristin Leticia SIMS Primary Care Physician [phone] [place] [facility]/23[place]23 - 02/22/23 [facility] Adult [address] [place] [address]- Allergies, Adverse Reactions, Alerts Substance Reaction Severity [...] radha pneumococcal 20-valent conjugate vaccine 08/27/22 Recorded [id number] 12y+ bivalent booster vax 08/27/22 Recorded SARS-CoV-2 mRNA (ysfalmc-damk-vvhtf) vax 8 06/29/21 Given SARS-CoV-2 (COVID-19) mRNA [...] 03/11/06 Given 1Result Comment: Flu HD [facility]#[id number] 2Result Comment: [facility]-[id number] 3Result Comment: [facility]: [id number] 4Result Comment: [02/28/2017] HD [facility]: 51030-536-65 5[facility] 6Admin Note: VIS 12/18/2010 7Admin Note: VIS given 01/02/10 8Result Comment: [facility]-[id number] 9Admin Note: VIS 10Admin Note: VIS-GIVEN 11Admin [...] 0 Refills, Maintenance, 12/03/22 13:26:00 EDT, Powder, [facility] #[id number], 2 puffs Inhalation Every 4 hours,PRN:as needed, 168, cm, 11/21/22 9:25:00 EDT, Height, 75.2, kg,... Start Date: 12/03/22 Status: Ordered amLODIPine 5 mg oral tablet 1 tablet = 5 mg, By Mouth, Daily, # 90 tablet, 1 Refills, Maintenance, 10/07/22 21:43:00 EDT, Tablet, [facility] #[id number], 167.6, cm, 10/07/22 13:14:00 EDT, Height, 74, [...] tablet, 1 Refills, Maintenance, 10/07/22 21:43:00 EDT, [facility] #[id number], 167.6, cm, 10/07/22 13:14:00 EDT, Height, 74, kg, 04/06/22 1:20:00 EST, Dry Weight Start Date: 10/07/22 Status: Ordered Coreg 6.25 mg oral tablet 6.25 mg, 1, tablet, By Mouth, 2 times a day, # 180 tablet, Refills 0, Tot. Refills 0, Maintenance, 01/09/23 20:35:00 EDT, Route to Pharmacy Electronically, [facility] #[id number], 168, cm, 01/08/23 13:26:00 EDT, Height, 75.2, kg, 11/09/22 22:57:0... Start Date: 01/09/23 Status: Ordered ezetimibe 10 mg oral tablet 1 tablet = 10 mg, By Mouth, Daily, # 90 tablet, 1 Refills, Maintenance, 11/22/22 11:47:00 EDT, Tablet, [facility] #[id number], 168, cm, 11/21/22 9:25:00 EDT, Height, 75.2, kg, 11/09/22 22:57:00 EDT, Dry Weight Start Date: 11/22/22 Stop Date: 05/21/23 Status: Ordered Farxiga 10 mg oral tablet 1 tablet = 10 mg, By Mouth, Daily, Increased strength, # 30 tablet, 0 Refills, Maintenance, 01/16/22 9:53:00 EDT, Tablet, [facility] #58516, Increased strength, 168, cm, 12/26/21 15:45:00 EDT, [...] 05/02/22 13:11:00 EST, Route to Pharmacy Electronically, [facility] #[id number], Partial fill upon patient request if the prescription is for a schedule... Start Date: 05/02/22 Stop Date: 10/29/22 Status: Ordered lisinopril 5 mg oral tablet 1, tablet, By Mouth, Daily, # 90 tablet, Refills 0, Maintenance, 02/18/23 7:58:00 EDT, Route to Pharmacy Electronically, [facility] #[id number], 168, cm, 02/17/23 10:42:00 EDT, Height, 75.2, kg,11/09/22 22:57:00 EDT, Dry Weight Start Date: 02/18/23 Status: Ordered metFORMIN 500 mg oral tablet 1 tablet = 500 mg, By Mouth, 2 times a day, for 90 days, # 180 tablet, 1 Refills, Acute 07/18/23 12:00:00 EST, 01/19/23 12:00:00 EDT, Tablet, [facility] #58829, 168, cm, 01/16/23 8:16:00 EDT, Height, 75.2, kg, 11/09/22 22:57:00 EDT, Dry Weight Start Date: 01/19/23 Stop Date: 07/18/23 Status: Ordered nitroglycerin 0.3 mg sublingual tablet 1 tablet = 0.3 mg, Sublingual, Every 5 minutes, PRN as needed for chest pain, not to exceed 3 doses/15 min--if pain persists, seek medical attention, # 100 tablet, 0 Refills, Maintenance, 12/04/20 10:05:00 EDT, Tablet, [facility] #[id number], Par... Start Date: 12/04/20 Status: Ordered oxyCODONE 10 mg oral tablet 1 tablet = 10 mg, By Mouth, Every 4 hours, PRN as needed for pain, Ok to fill less than prescribed amount M48.061, M96.1, # 168 tablet, 0 Refills, Maintenance, 01/28/23 7:30:00 EDT, Tablet, [facility] #[id number], Partial fill upon patient requ... Start Date: [...] 8:36:00 EDT, Inhaler, Route to Pharmacy Electronically, [id number], [facility] #[id number]... Start Date: 01/16/23 Stop Date: 07/15/23 Status: [...] 0 Refills, Maintenance, 10/07/22 13:36:00 EDT, Capsule, 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 [place] 4, 15surgery 1991 16MRI 2006 17possible ITP 18monitor 19Tubular adenoma 2014 Social History Social History Type Response Smoking Status Former smoker; Tobac co use times per day: smoked < 1/2 PPD; Started at age: 18; Stopped at age: 65; entered on: 12/23/13 Sex Patient Care team information Care Team Personnel Name: Philomena Castillo Position: [facility] RN Supv Member Role: Primary Care Nurse Name: Leticia Foster NP Position: [facility] PCO Associate Professional Member Role: PCP Address: Address: [address] [place] [id number] Name: Namita Barajas RN Position: [facility] RN Member Role: Primary Care Nurse Name: Tasha Back RN Position: [facility] RN Member Role: Primary Care Nurse Name: Jenny Bustillos RN Position: [facility] RN Member Role: Primary Care Nurse Name: Margarita Serrano RN Position: [facility] RN Member Role: Primary Care Nurse Name: Michelle ([facility]) Lillian Position: [facility] packer sausage and wiener Member Role: Conference Coordinator Name: Devin Benites RN Position: [facility] RN Member Role: Primary Care Nurse Name: Betsy Millan RN Position: [facility] RN Member Role: Primary Care Nurse Name: Peggy Jansen RN Position: [facility] RN Member Role: Primary Care Nurse Name: Cate Pabon RN Position: [facility] AMB Nurse Member Role: Primary Care Nurse Name: Janette Jones RN Position: [facility] RN Member Role: Primary Care Nurse Name: Deanne Hayes RN Position: [facility] RN Member Role: Primary Care Nurse Name: Vianney Mcneill RN Position: S RN Member Role: Primary Care Nurse Name: Cindy Eavns LPN Position: S RN Member Role: Primary Care Nurse Care Team Related Persons Name: INGE MURRAY Address: home [address] [place] [id number] Name: NIK BARTON Address: [place] [address]
--- OUTSIDE RECORDS SUMMARY | 2023-05-02 16:31 | XMS_ITS | Continuity of Care Document ---
Author Name Unknown Organization [facility] Alessandro Cruz [place] lt Address [address] [place] [address]- Care Team Providers Care Theatre Manager Name Role Phone Kristin Leticia SIMS Primary Care Physician [phone] Encounter [facility] Date(s): 04/01/23 - 05/01/23 [facility] Adult [address] [place] [address]- Allergies, Adverse Reactions, Alerts Substance Reaction Severity Status Duloxetine 1 rash Active 1GI Immunizations Given and Recorded Vaccine Date Status Refusal Reason influenza virus vaccine, inactivated 1 02/17/23 Gi radha influenza virus vaccine, inactivated 2 03/28/22 Gi radha influenza virus vaccine, inactivated 3 03/19/21 Gi radha influenza virus vaccine, inactivated 04/17/18 Give n influenza virus vaccine, inactivated 4 02/28/17 Gi radah influenza virus vaccine, inactivated 03/07/16 Give n influenza virus vaccine, inactivated 03/22/15 Give n influenza virus vaccine, inactivated 5 04/02/14 Re corded influenza virus vaccine, inactivated 04/19/13 Give n influenza virus vaccine, inactivated 01/28/12 Give n influenza virus vaccine, inactivated 6 05/01/11 Gi radha influenza virus vaccine, inactivated 7 08/01/10 Gi radha pneumococcal 20-valent conjugate vaccine 08/27/22 Recorded [id number] 12y+ bivalent booster vax 08/27/22 Recorded SARS-CoV-2 mRNA ([id number]) vax 8 06/29/21 Given SARS-CoV-2 (COVID-19) mRNA [...] 14 03/11/06 Given 1Result Comment: Flu HD [facility]#[id number] 2Result Comment: [facility]-[id number] 3Result Comment: [facility]: [id number] 4Result Comment: [02/28/2017] HD [facility]: [id number] [facility] 6Admin Note: VIS 12/18/2010 7Admin Note: VIS given 01/02/10 8Result Comment: [facility]-[id number] 9Admin Note: VIS 10Admin Note: VIS-GIVEN 11Admin [...] 0 Refills, Maintenance, 12/03/22 13:26:00 EDT, Powder, [facility] #[id number], 2 puffs Inhalation Every 4 hours,PRN:as needed, 168, cm, 11/21/22 9:25:00 EDT, Height, 75.2, kg,... Start Date: 12/03/22 Status: Ordered amLODIPine 5 mg oral tablet 1 tablet = 5 mg, By Mouth, Daily, # 90 tablet, 1 Refills, Maintenance, 10/07/22 21:43:00 EDT, Tablet, [facility] #[id number], 167.6, cm, 10/07/22 13:14:00 EDT, Height, 74, [...] tablet, 1 Refills, Maintenance, 03/21/23 12:54:00 EDT, [facility] #35255, 168, cm, 02/17/23 10:42:00 EDT, Height, 75.2, kg, 11/09/22 22:57:00 EDT, Dry Weight Start Date: 03/21/23 Status: Ordered Coreg 6.25 mg oral tablet 6.25 mg, 1, tablet, By Mouth, 2 times a day, # 180 tablet, Refills 1, Tot. Refills 1, Maintenance, 04/24/23 21:11:00 EST, Route to Pharmacy Electronically, [facility] #[id number], 165.5, cm, 04/09/23 13:02:00 EST, Height, 75.2, kg, 11/09/22 22:57... Start Date: 04/24/23 Status: Ordered ezetimibe 10 mg oral tablet 1 tablet = 10 mg, By Mouth, Daily, for 90 days, # 90 tablet, 1 Refills, Hard Stop 05/21/23 11:47:00EST, 11/22/22 11:47:00 EDT, Tablet, [facility] #[id number], 168, cm, 11/21/22 9:25:00 EDT, Height, 75.2, kg, 11/09/22 22:57:00 EDT, Dry Weight Start Date: 11/22/22 Stop Date: 05/21/23 Status: Ordered ezetimibe 10 mg oral tablet 1 tablet = 10 mg, By Mouth, Daily, # 90 tablet, 1 Refills, Maintenance, 05/21/23 11:47:00 EST, Tablet, [facility] #[id number], 165.5, cm, 04/09/23 13:02:00 EST, Height, 75.2, kg, 11/09/22 22:57:00 EDT, Dry Weight Start Date: 05/21/23 Stop Date: 11/17/23 Status: Ordered Farxiga 10 mg oral tablet 1 tablet = 10 mg, By Mouth, Daily, Increased strength, # 30 tablet, 0 Refills, Maintenance, 01/16/22 9:53:00 EDT, Tablet, [facility] #[id number], Increased strength, 168, cm, 12/26/21 15:45:00 EDT, [...] 05/02/22 13:11:00 EST, Route to Pharmacy Electronically, [facility] #[id number], Partial fill upon patient request if the prescription is for a schedule... Start Date: 05/02/22 Stop Date: 10/29/22 Status: Ordered lamotrigine 25 mg oral tablet 25 mg, 1, tablet, By Mouth, 2 times a day, # 180 tablet, Refills 1, Tot. Refills 1, Maintenance, 05/01/23 9:43:00 EST, Route to Pharmacy Electronically, [facility] #[id number], 165.5, cm, 04/09/23 13:02:00 EST, Height, 75.2, kg, 11/09/22 22:57:00... Start Date: 05/01/23 Stop Date: 10/28/23 Status: Ordered lisinopril 5 mg oral tablet 1, tablet, By Mouth, Daily, # 90 tablet, Refills 0, Maintenance, 02/18/23 7:58:00 EDT, Route to Pharmacy Electronically, [facility] #[id number], 168, cm, 02/17/23 10:42:00 EDT, Height, 75.2, kg,11/09/22 22:57:00 EDT, Dry Weight Start Date: 02/18/23 Status: Ordered metFORMIN 500 mg oral tablet 1 tablet = 500 mg, By Mouth, 2 times a day, for 90 days, # 180 tablet, 1 Refills, Acute 07/18/23 12:00:00 EST, 01/19/23 12:00:00 EDT, Tablet, [facility] #[id number], 168, cm, 01/16/23 8:16:00 EDT, Height, 75.2, kg, 11/09/22 22:57:00 EDT, Dry Weight Start Date: 01/19/23 Stop Date: 07/18/23 Status: Ordered nitroglycerin 0.3 mg sublingual tablet 1 tablet = 0.3 mg, Sublingual, Every 5 minutes, PRN as needed for chest pain, not to exceed 3 doses/15 min--if pain persists, seek medical attention, # 100 tablet, 0 Refills, Maintenance, 12/04/20 10:05:00 EDT, Tablet, [facility] #[id number], Par... Start Date: 12/04/20 Status: Ordered oxyCODONE 10 mg oral tablet 1 tablet = 10 mg, By Mouth, Every 4 hours, PRN as needed for pain, Ok to fill less than prescribed amount M48.061, M96.1, # 168 tablet, 0 Refills, Maintenance, 04/22/23 14:28:00 EST, Tablet, [facility] #[id number], Partial fill upon patient req... Start Date: [...] 8:36:00 EDT, Inhaler, Route to Pharmacy Electronically, [id number], [facility] #[id number]... 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 [place] 4, 15surgery 1991 16MRI 2006 17possible ITP 18monitor 19Tubular adenoma 2014 Social History Social History Type Response Smoking Status Former smoker; Tobac co use times per day: smoked < 1/2 PPD; Started at age: 18; Stopped at age: 65; entered on: 12/23/13 Sex Patient Care team information Care Team Personnel Name: Philomena Castillo Position: [facility] RN Supv Member Role: Primary Care Nurse Name: Leticia Foster NP Position: [facility] PCO Associate Professional Member Role: PCP Address: Address: [address] [place] [address] [place] [address]- Name: Namita Barajas RN Position: [facility] RN Member Role: Primary Care Nurse Name: Tasha Back RN Position: [facility] RN Member Role: Primary Care Nurse Name: Jenny Bustillos RN Position: S RN Member Role: Primary Care Nurse Name: Margarita Serrano RN Position: [facility] RN Member Role: Primary Care Nurse Name: Michelle ([employer]) Lillian Position: [facility] 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 Member Role: Paint Tinter Name: Devin Benites RN Position: [facility] RN Member Role: Primary Care Nurse Name: Betsy Millan RN Position: [facility] RN Member Role: Primary Care Nurse Name: Peggy Jansen RN Position: [facility] RN Member Role: Primary Care Nurse Name: Cate Pabon RN Position: [facility] AMB Nurse Member Role: Primary Care Nurse Name: Janette Jones RN Position: [facility] RN Member Role: Primary Care Nurse Name: Deanne Hayes RN Position: [facility] RN Member Role: Primary Care Nurse Name: Vianney Mcneill RN Position: [facility] RN Member Role: Primary Care Nurse Name: Cindy Evans LPN Position: [facility] RN Member Role: Primary Care Nurse Care Team Related Persons Name: INGE MURRAY Address: [address] [place] [address] Name: NIK BARTON Address: [place] [address]
--- OUTSIDE RECORDS SUMMARY | 2023-05-02 16:31 | XMS_ITS | Continuity of Care Document ---
Author Name Unknown Organization [facility] Alessandro Cruz [place] lt Address [address] [place] [address]- Care Team Providers Care Technical Sales Consultant Name Role Phone Kristin Leticia SIMS Primary Care Physician Encounter [facility] Date(s): 02/17/23 - 02/24/23 [facility] Adult [address] [place] [address]- Encounter Diagnosis Impingement syndrome, shoulder, left(Discharge Diagnosis) - 02/17/23 Attending Physician: Not on Staff, Attending MD [...] radha pneumococcal 20-valent conjugate vaccine 08/27/22 Recorded [id number] 12y+ bivalent booster vax 08/27/22 Recorded SARS-CoV-2 mRNA ([id number]) vax 8 06/29/21 Given SARS-CoV-2 (COVID-19) mRNA [...] 14 03/11/06 Given 1Result Comment: Flu HD [facility]#[id number] 2Result Comment: [facility]-[id number] 3Result Comment: [facility]: [id number] 4Result Comment: [02/28/2017] HD [facility]: [id number] 5[facility] 6Admin Note: VIS 12/18/2010 7Admin Note: VIS given 01/02/10 8Result Comment: [facility]-[id number] 9Admin Note: VIS 10Admin Note: VIS-GIVEN 11Admin [...] 0 Refills, Maintenance, 12/03/22 13:26:00 EDT, Powder, [facility] #[id number], 2 puffs Inhalation Every 4 hours,PRN:as needed, 168, cm, 11/21/22 9:25:00 EDT, Height, 75.2, kg,... Start Date: 12/03/22 Status: Ordered amLODIPine 5 mg oral tablet 1 tablet = 5 mg, By Mouth, Daily, # 90 tablet, 1 Refills, Maintenance, 10/07/22 21:43:00 EDT, Tablet, [facility] #[id number], 167.6, cm, 10/07/22 13:14:00 EDT, Height, 74, [...] tablet, 1 Refills, Maintenance, 10/07/22 21:43:00 EDT, [facility] #[id number], 167.6, cm, 10/07/22 13:14:00 EDT, Height, 74, kg, 04/06/22 1:20:00 EST, Dry Weight Start Date: 10/07/22 Status: Ordered Coreg 6.25 mg oral tablet 6.25 mg, 1, tablet, By Mouth, 2 times a day, # 180 tablet, Refills 0, Tot. Refills 0, Maintenance, 01/09/23 20:35:00 EDT, Route to Pharmacy Electronically, [facility] #[id number], 168, cm, 01/08/23 13:26:00 EDT, Height, 75.2, kg, 11/09/22 22:57:0... Start Date: 01/09/23 Status: Ordered ezetimibe 10 mg oral tablet 1 tablet = 10 mg, By Mouth, Daily, # 90 tablet, 1 Refills, Maintenance, 11/22/22 11:47:00 EDT, Tablet, [facility] #38261, 168, cm, 11/21/22 9:25:00 EDT, Height, 75.2, kg, 11/09/22 22:57:00 EDT, Dry Weight Start Date: 11/22/22 Stop Date: 05/21/23 Status: Ordered Farxiga 10 mg oral tablet 1 tablet = 10 mg, By Mouth, Daily, Increased strength, # 30 tablet, 0 Refills, Maintenance, 01/16/22 9:53:00 EDT, Tablet, [facility] #78471, Increased strength, 168, cm, 12/26/21 15:45:00 EDT, [...] 05/02/22 13:11:00 EST, Route to Pharmacy Electronically, [facility] #[id number], Partial fill upon patient request if the prescription is for a schedule... Start Date: 05/02/22 Stop Date: 10/29/22 Status: Ordered lisinopril 5 mg oral tablet 1, tablet, By Mouth, Daily, # 90 tablet, Refills 0, Maintenance, 02/18/23 7:58:00 EDT, Route to Pharmacy Electronically, [facility] #[id number], 168, cm, 02/17/23 10:42:00 EDT, Height, 75.2, kg,11/09/22 22:57:00 EDT, Dry Weight Start Date: 02/18/23 Status: Ordered metFORMIN 500 mg oral tablet 1 tablet = 500 mg, By Mouth, 2 times a day, for 90 days, # 180 tablet, 1 Refills, Acute 07/18/23 12:00:00 EST, 01/19/23 12:00:00 EDT, Tablet, [facility] #89369, 168, cm, 01/16/23 8:16:00 EDT, Height, 75.2, kg, 11/09/22 22:57:00 EDT, Dry Weight Start Date: 01/19/23 Stop Date: 07/18/23 Status: Ordered nitroglycerin 0.3 mg sublingual tablet 1 tablet = 0.3 mg, Sublingual, Every 5 minutes, PRN as needed for chest pain, not to exceed 3 doses/15 min--if pain persists, seek medical attention, # 100 tablet, 0 Refills, Maintenance, 12/04/20 10:05:00 EDT, Tablet, [facility] #97996, Par... Start Date: 12/04/20 Status: Ordered oxyCODONE 10 mg oral tablet 1 tablet = 10 mg, By Mouth, Every 4 hours, PRN as needed for pain, Ok to fill less than prescribed amount M48.061, M96.1, # 168 tablet, 0 Refills, Maintenance, 01/28/23 7:30:00 EDT, Tablet, [facility] #27307, Partial fill upon patient requ... Start Date: [...] 8:36:00 EDT, Inhaler, Route to Pharmacy Electronically, [id number], [facility] #[id number]... Start Date: 01/16/23 Stop Date: 07/15/23 Status: [...] 0 Refills, Maintenance, 10/07/22 13:36:00 EDT, Capsule, [facility] #[id number], 167.6, cm, 10/07/22 13:14:00 EDT, Height, 74, [...] Confirmed Active Ischemic cardiomyopathy Confirmed 10/20/20 Active [facility] current use of opiate analgesic 12, 13, [...] past 12care ploan reviewed 13comm 2 14PHQ9;2. [place] 4, 15surgery 1991 16MRI 2006 17possible ITP 18monitor 19Tubular adenoma 2014 Diagnosis Diagnosis Type Effective Dates Health Status Clinical Service Informant Impingement syndrome, shoulder, left Discharge Diagnosis 02/17/23 Vital Signs Most recent to oldest [Reference Range]: 1 Height 168 cm (02/17/23 10:42 AM) Weight 75.8 kg (02/17/23 10:42 AM) Oxygen Saturation [94-100 %] 100 % (02/17/23 10:42 AM) Pulse Rate [55-90 bpm] 70 bpm (02/17/23 10:42 AM) Body Mass Index [18.5-24.99 kg/m2] 26.86 kg/m2 *H* (02/17/23 10:42 AM) Blood Pressure [90-138/55-84 mm Hg] 118/ 58mm Hg (02/17/23 10:42 AM) Respiratory Rate [16-30 br/min] 16 br/mi n (02/17/23 10:42 AM) Temperature [96.8-100.4 DegF] 97.7 DegF (02/17/23 10:42 AM) Mode of Delivery (Oxygen) Room air (02/17/23 10:42 AM) Temperature Route Oral (02/17/23 10:42 AM) Weight Obtained Via Standing scale (02/17/23 10:42 AM) Social History Social History Type Response Smoking Status Former smoker; Tobac co use times per day: smoked < 1/2 PPD; Started at age: 18; Stopped at age: 65; entered on: 12/23/13 Sex Note * Nemo Franco: PERFORM, SIGN, VERIFY Event Display: Patient Education/Instruction Authored Date: [id number] [facility] *BMP So [place] Coopert Clinical Summary Name OSCAR MURRAY Age 77 Years 1945 PCP Leticia Foster NP PCP Visit Date 02/17/2023 10:27:00 Additional Instructions: Scheduled Appointments?? Future Appointments ?*Rehab??[facility] ?Phone:??--?Fax:??-- ?Appt. Date:??02/21/2023?10:30 AM ?Scheduled Provider:??Adán, Frida ?*BMP??[facility] ?Phone:??--?Fax:??-- ?Appt. Date:??03/31/2023?10:50 AM ?Scheduled Provider:??Leticai Foster NP. Follow-Up Instructions ?? With: Address: When: Leticia Foster NP Comments: for annual exam in 1-2 months Diagnosis Impingement syndrome of left shoulder Medications: Please continue your medications until treatment is completed or stopped by your provider. Discuss any questions related to medications with your provider. Medications to Continue with No Changes These medications were not printed or sent to your pharmacy Albuterol (albuterol 0.021% inhalation solution) 3 Milliliter Nebulized inhalation once. administered in-office. Refills: 0. Next Dose: Albuterol (albuterol 90 mcg/inh inhalation powder) 2 [...] tab(s) Oral Daily. Refills: 1. Next Dose: Budesonide-Formoterol (Symbicort 80mcg/4.5mcg Inhaler) 2 puff(s) Inhalation twice a day for 30 Days. rinse mouth and throat after use. Refills: 5. Next Dose: Carvedilol (Coreg 6.25 mg oral [...] mg oral tablet) 1 tab(s) Oral Daily for 90 Days. Refills: 1. Next Dose: Isosorbide Mononitrate (isosorbide mononitrate 60 mg oral tablet, extended release) 1 tab(s) Oral Daily in the morning for 30 Days. Refills: 5. Next Dose: Lisinopril (lisinopril 5 mg oral tablet) 1 tab(s) Oral Daily. Refills: 3. Next Dose: Metformin (metFORMIN 500 mg oral tablet) 1 tab(s) Oral twice a day for 90 Days. Refills: 1. Next Dose: Nitroglycerin (nitroglycerin 0.3 mg sublingual tablet) 1 tab(s) Sublingual every 5 minutes as needed as needed for chest pain. not to exceed 3 doses/15 min--if pain persists, seek medical attention. Refills: 0. Next Dose: Oxycodone (oxyCODONE 10 mg oral tablet) 1 tab(s) Oral every 4 hours as needed as needed for pain. Ok to fill less than prescribed amount M48.061, M96.1. Refills: 0. Next Dose: Pantoprazole (pantoprazole 40 mg oral delayed release tablet) 1 tab(s) Oral Daily. Refills: 1. Next Dose: Allergy Info:?? Duloxetine Medications Given This Visit Medication Dose Route influenza virus vaccine, inactivated (influenza virus, inactivated vacc (High Dose)) 0.7 mL Intramuscular Future Orders ?No future orders Vital Signs Height 168 cm Weight 75.8 kg BMI 26.86 kg/m2 Blood Pressure 118 mm Hg/58 mm Hg Temperature 97.7 DegF Pulse Rate 70 bpm Respiratory Rate 16 br/min 02 Sat Mode of Delivery 100 %/Room air You can now view a summary of your hospital visit from the comfort of your home through a free online portal called [email or web address]. [email or web address] is a website that allows you to securely view your medical information including discharge summary, medications and follow-up visits. ??You can alsosend a secure electronic message to your doctor???s office to request appointments, renew medications or just ask a question. You can enroll at [email or web address] or register during your next office visit. [...] primary care provider, you may find a [facility] provider by calling [facility] at [phone]. [facility], in keeping with [facility] guidance, no longer requires face masks for staff, patientsor visitors in most situations. Similar to time spent indoors at other locations, there is the chance that you were exposed to respiratory viruses during your time with us (such as flu or COVID-19).? If you develop symptoms concerning for a viral respiratory infection, please seek testing (and treatment if indicated) from your medical provider or home test kit. For information about the plan of care including goals and instructions for your diagnosis, please see the patient education orders section of this document. Patient Education Materials?? The content of this educational material or handout may have been modified, supplemented, or adapted from its original content and format to support your individualized medical care. * Nemo Franco: PERFORM, SIGN, VERIFY Event Display: Patient Education/Instruction Authored Date: [id number] [facility] *BMP So [place] Dangelo Clinical Summary Name OSCAR MURRAY Age 77 Years 1945 PCP Leticia Foster NP PCP Visit Date 02/17/2023 10:27:00 Additional Instructions: Scheduled Appointments?? Future Appointments ?*BMP??[facility] ?[address],??[place],??[address] ?Phone:??--?Fax:??-- ?Appt. Date:??02/24/2023?1:30 PM ?Scheduled Provider:??Leticia Foster NP. Follow-Up Instructions ?? With: Address: When: Leticia Foster NP Comments: for annual exam in 1-2 months Diagnosis Impingement syndrome of left shoulder Medications: Please continue your medications until treatment is completed or stopped by your provider. Discuss any questions related to medications with your provider. Medications to Continue with No Changes These medications were not printed or sent to your pharmacy Albuterol (albuterol 0.021% inhalation solution) 3 Milliliter Nebulized inhalation once. administered in-office. Refills: 0. Next Dose: Albuterol (albuterol 90 mcg/inh inhalation powder) 2 [...] tab(s) Oral Daily. Refills: 1. Next Dose: Budesonide-Formoterol (Symbicort 80mcg/4.5mcg Inhaler) 2 puff(s) Inhalation twice a day for 30 Days. rinse mouth and throat after use. Refills: 5. Next Dose: Carvedilol (Coreg 6.25 mg oral [...] mg oral tablet) 1 tab(s) Oral Daily for 90 Days. Refills: 1. Next Dose: Isosorbide Mononitrate (isosorbide mononitrate 60 mg oral tablet, extended release) 1 tab(s) Oral Daily in the morning for 30 Days. Refills: 5. Next Dose: Lisinopril (lisinopril 5 mg oral tablet) 1 tab(s) Oral Daily. Refills: 3. Next Dose: Metformin (metFORMIN 500 mg oral tablet) 1 tab(s) Oral twice a day for 90 Days. Refills: 1. Next Dose: Nitroglycerin (nitroglycerin 0.3 mg sublingual tablet) 1 tab(s) Sublingual every 5 minutes as needed as needed for chest pain. not to exceed 3 doses/15 min--if pain persists, seek medical attention. Refills: 0. Next Dose: Oxycodone (oxyCODONE 10 mg oral tablet) 1 tab(s) Oral every 4 hours as needed as needed for pain. Ok to fill less than prescribed amount M48.061, M96.1. Refills: 0. Next Dose: Pantoprazole (pantoprazole 40 mg oral delayed release tablet) 1 tab(s) Oral Daily. Refills: 1. Next Dose: Allergy Info:?? Duloxetine Medications Given This Visit Medication Dose Route influenza virus vaccine, inactivated (influenza virus, inactivated vacc (High Dose)) 0.7 mL Intramuscular Future Orders ?No future orders Vital Signs Height 168 cm Weight 75.8 kg BMI 26.86 kg/m2 Blood Pressure 118 mm Hg/58 mm Hg Temperature 97.7 DegF Pulse Rate 70 bpm Respiratory Rate 16 br/min 02 Sat Mode of Delivery 100 %/Room air You can now view a summary of your hospital visit from the comfort of your home through a free online portal called [email or web address]. BTC[employer]sx is a website that allows you to securely view your medical information including discharge summary, medications and follow-up visits. ??You can alsosend a secure electronic message to your doctor???s office to request appointments, renew medications or just ask a question. You can enroll at [email or web address] or register during your next office visit. [...] primary care provider, you may find a [facility] provider by calling [facility] at [phone]. [facility], in keeping with [facility] guidance, no longer requires face masks for staff, patientsor visitors in most situations. Similar to time spent indoors at other locations, there is the chance that you were exposed to respiratory viruses during your time with us (such as flu or COVID-19).? If you develop symptoms concerning for a viral respiratory infection, please seek testing (and treatment if indicated) from your medical provider or home test kit. For information about the plan of care [...] Personnel Name: Philomena Castillo Position: [facility] RN Supv Member Role: Primary Care Nurse Name: Leticia Foster NP Position: [facility] PCO Associate Professional Member Role: PCP Address: Address: [address] [place] [id number] Name: Namita Barajas RN Position: [facility] RN Member Role: Primary Care Nurse Name: Tasha Back RN Position: [facility] RN Member Role: Primary Care Nurse Name: Jenny Bustillos RN Position: [facility] RN Member Role: Primary Care Nurse Name: Margarita Serrano RN Position: [facility] RN Member Role: Primary Care Nurse Name: Michelle ([place]) Lillian Position: [facility] senior firewall engineer Member Role: Flexible Nanny Name: Devin Benites RN Position: [facility] [...] Team Related Persons Name: ANDREA MURRAYA Address: [address] [address] Name: NIK BARTON Address: home [place] [id number]
--- OUTSIDE RECORDS SUMMARY | 2023-05-02 16:31 | XMS_ITS | Continuity of Care Document ---
Author Name Unknown Organization 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 Role Phone Kristin Leticia SIMS Primary Care Physician [phone] Encounter [facility] Date(s): 02/25/23 - 03/27/23 [facility] Adult [address] [place] [address]- Allergies, Adverse Reactions, Alerts Substance Reaction Severity [...] radha pneumococcal 20-valent conjugate vaccine 08/27/22 Recorded [id number] 12y+ bivalent booster vax 08/27/22 Recorded SARS-CoV-2 mRNA (yboimkz-hyju-eqxhb) vax 8 06/29/21 Given SARS-CoV-2 (COVID-19) mRNA [...] 03/11/06 Given 1Result Comment: Flu HD [facility]#[id number] 2Result Comment: [facility]-[id number] 3Result Comment: [facility]: [id number] 4Result Comment: [02/28/2017] HD [facility]: 23117-164-25 [facility] 6Admin Note: VIS 12/18/2010 7Admin Note: VIS given 01/02/10 8Result Comment: [facility]-[id number] 9Admin Note: VIS 10Admin Note: VIS-GIVEN 11Admin [...] 0 Refills, Maintenance, 12/03/22 13:26:00 EDT, Powder, [facility] #[id number], 2 puffs Inhalation Every 4 hours,PRN:as needed, 168, cm, 11/21/22 9:25:00 EDT, Height, 75.2, kg,... Start Date: 12/03/22 Status: Ordered amLODIPine 5 mg oral tablet 1 tablet = 5 mg, By Mouth, Daily, # 90 tablet, 1 Refills, Maintenance, 10/07/22 21:43:00 EDT, Tablet, [facility] #[id number], 167.6, cm, 10/07/22 13:14:00 EDT, Height, 74, [...] tablet, 1 Refills, Maintenance, 03/21/23 12:54:00 EDT, [facility] #[id number], 168, cm, 02/17/23 10:42:00 EDT, Height, 75.2, kg, 11/09/22 22:57:00 EDT, Dry Weight Start Date: 03/21/23 Status: Ordered Coreg 6.25 mg oral tablet 6.25 mg, 1, tablet, By Mouth, 2 times a day, # 180 tablet, Refills 0, Tot. Refills 0, Maintenance, 01/09/23 20:35:00 EDT, Route to Pharmacy Electronically, [facility] #[id number], 168, cm, 01/08/23 13:26:00 EDT, Height, 75.2, kg, 11/09/22 22:57:0... Start Date: 01/09/23 Status: Ordered ezetimibe 10 mg oral tablet 1 tablet = 10 mg, By Mouth, Daily, # 90 tablet, 1 Refills, Maintenance, 11/22/22 11:47:00 EDT, Tablet, [facility] #[id number], 168, cm, 11/21/22 9:25:00 EDT, Height, 75.2, kg, 11/09/22 22:57:00 EDT, Dry Weight Start Date: 11/22/22 Stop Date: 05/21/23 Status: Ordered Farxiga 10 mg oral tablet 1 tablet = 10 mg, By Mouth, Daily, Increased strength, # 30 tablet, 0 Refills, Maintenance, 01/16/22 9:53:00 EDT, Tablet, [facility] #[id number], Increased strength, 168, cm, 12/26/21 15:45:00 EDT, [...] 05/02/22 13:11:00 EST, Route to Pharmacy Electronically, [facility] #[id number], Partial fill upon patient request if the prescription is for a schedule... Start Date: 05/02/22 Stop Date: 10/29/22 Status: Ordered lisinopril 5 mg oral tablet 1, tablet, By Mouth, Daily, # 90 tablet, Refills 0, Maintenance, 02/18/23 7:58:00 EDT, Route to Pharmacy Electronically, [facility] #[id number], 168, cm, 02/17/23 10:42:00 EDT, Height, 75.2, kg,11/09/22 22:57:00 EDT, Dry Weight Start Date: 02/18/23 Status: Ordered metFORMIN 500 mg oral tablet 1 tablet = 500 mg, By Mouth, 2 times a day, for 90 days, # 180 tablet, 1 Refills, Acute 07/18/23 12:00:00 EST, 01/19/23 12:00:00 EDT, Tablet, [facility] #[id number], 168, cm, 01/16/23 8:16:00 EDT, Height, 75.2, kg, 11/09/22 22:57:00 EDT, Dry Weight Start Date: 01/19/23 Stop Date: 07/18/23 Status: Ordered nitroglycerin 0.3 mg sublingual tablet 1 tablet = 0.3 mg, Sublingual, Every 5 minutes, PRN as needed for chest pain, not to exceed 3 doses/15 min--if pain persists, seek medical attention, # 100 tablet, 0 Refills, Maintenance, 12/04/20 10:05:00 EDT, Tablet, [facility] #[id number], Par... Start Date: 12/04/20 Status: Ordered oxyCODONE 10 mg oral tablet 1 tablet = 10 mg, By Mouth, Every 4 hours, PRN as needed for pain, Ok to fill less than prescribed amount M48.061, M96.1, # 168 tablet, 0 Refills, Maintenance, 03/24/23 15:53:00 EDT, Tablet, [facility] #[id number], Partial fill upon patient req... Start Date: [...] 8:36:00 EDT, Inhaler, Route to Pharmacy Electronically, [id number], [facility] #[id number]... 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 [place] 4, 15surgery 1991 16MRI 2006 17possible ITP 18monitor 19Tubular adenoma 2014 Social History Social History Type Response Smoking Status Former smoker; Tobac co use times per day: smoked < 1/2 PPD; Started at age: 18; Stopped at age: 65; entered on: 12/23/13 Sex Patient Care team information Care Team Personnel Name: Philomena Castillo Position: [facility] RN Supv Member Role: Primary Care Nurse Name: Leticia Foster NP Position: [facility] PCO Associate Professional Member Role: PCP Address: Address: [address] [place] [id number] Name: Namita Barajas RN Position: [facility] RN Member Role: Primary Care Nurse Name: Tasha Back RN Position: [facility] RN Member Role: Primary Care Nurse Name: Jenny Bustillos RN Position: [facility] RN Member Role: Primary Care Nurse Name: Margarita Serrano RN Position: [facility] RN Member Role: Primary Care Nurse Name: Michelle ([employer]) Lillian 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: [facility] 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 Member Role: Android Programmer Name: Devin Benites RN Position: [facility] RN Member Role: Primary Care Nurse Name: Betsy Millan RN Position: [facility] RN Member Role: Primary Care Nurse Name: Peggy Jansen RN Position: [facility] RN Member Role: Primary Care Nurse Name: Cate Pabon RN Position: [facility] AMB Nurse Member Role: Primary Care Nurse Name: Janette Jones RN Position: [facility] RN Member Role: Primary Care Nurse Name: Deanne Hayes RN Position: [facility] RN Member Role: Primary Care Nurse Name: Vianney Mcneill RN Position: S RN Member Role: Primary Care Nurse Name: Cindy Evans LPN Position: S RN Member Role: Primary Care Nurse Care Team Related Persons Name: INGE MURRAY Address: home [address] [place] [id number] Name: NIK BARTON Address: [place] [address]
--- OUTSIDE RECORDS SUMMARY | 2023-05-02 16:31 | XMS_ITS | Continuity of Care Document ---
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%(Discharge Diagnosis) - 03/30/23 Chronic kidney disease, stage 2 (mild)(Discharge Diagnosis) - 03/30/23 DM (diabetes mellitus), type 2 with peripheral vascular complications(Discharge Diagnosis) - 03/30/23 Diabetes mellitus with renal manifestation(Discharge Diagnosis) - 03/30/23 Ectatic aorta(Discharge Diagnosis) - 03/30/23 Inguinal hernia left(Discharge Diagnosis) - 03/31/23 Vitamin D deficiency(Discharge Diagnosis) - 04/06/23 Spinal stenosis of lumbar region(Discharge Diagnosis) - 04/06/23 Benign Essential Hypertension(Discharge Diagnosis) - 03/30/23 Essential familial hyperlipidemia(Discharge Diagnosis) - 03/30/23 Ischemic cardiomyopathy(Discharge Diagnosis) - 03/30/23 Attending Physician: Leticia Foster NP Referring Physician: [...] radha pneumococcal 20-valent conjugate vaccine 08/27/22 Recorded [id number] 12y+ bivalent booster vax 08/27/22 Recorded SARS-CoV-2 mRNA (hoejhre-dtes-yopbi) vax 8 06/29/21 Given SARS-CoV-2 (COVID-19) mRNA [...] 14 03/11/06 Given 1Result Comment: Flu HD [facility]#[id number] 2Result Comment: [facility]-[id number] 3Result Comment: [facility]: [id number] 4Result Comment: [02/28/2017] HD [facility]: [id number] [facility] 6Admin Note: VIS 12/18/2010 7Admin Note: VIS given 01/02/10 8Result Comment: [facility]-[id number] 9Admin Note: VIS 10Admin Note: VIS-GIVEN 11Admin [...] 0 Refills, Maintenance, 12/03/22 13:26:00 EDT, Powder, [facility] #[id number], 2 puffs Inhalation Every 4 hours,PRN:as needed, 168, cm, 11/21/22 9:25:00 EDT, Height, 75.2, kg,... Start Date: 12/03/22 Status: Ordered amLODIPine 5 mg oral tablet 1 tablet = 5 mg, By Mouth, Daily, # 90 tablet, 1 Refills, Maintenance, 10/07/22 21:43:00 EDT, Tablet, [facility] #[id number], 167.6, cm, 10/07/22 13:14:00 EDT, Height, 74, [...] tablet, 1 Refills, Maintenance, 03/21/23 12:54:00 EDT, [facility] #[id number], 168, cm, 02/17/23 10:42:00 EDT, Height, 75.2, kg, 11/09/22 22:57:00 EDT, Dry Weight Start Date: 03/21/23 Status: Ordered Coreg 6.25 mg oral tablet 6.25 mg, 1, tablet, By Mouth, 2 times a day, # 180 tablet, Refills 0, Tot. Refills 0, Maintenance, 01/09/23 20:35:00 EDT, Route to Pharmacy Electronically, [facility] #[id number], 168, cm, 01/08/23 13:26:00 EDT, Height, 75.2, kg, 11/09/22 22:57:0... Start Date: 01/09/23 Status: Ordered ezetimibe 10 mg oral tablet 1 tablet = 10 mg, By Mouth, Daily, # 90 tablet, 1 Refills, Maintenance, 11/22/22 11:47:00 EDT, Tablet, [facility] #[id number], 168, cm, 11/21/22 9:25:00 EDT, Height, 75.2, kg, 11/09/22 22:57:00 EDT, Dry Weight Start Date: 11/22/22 Stop Date: 05/21/23 Status: Ordered Farxiga 10 mg oral tablet 1 tablet = 10 mg, By Mouth, Daily, Increased strength, # 30 tablet, 0 Refills, Maintenance, 01/16/22 9:53:00 EDT, Tablet, [facility] #[id number], Increased strength, 168, cm, 12/26/21 15:45:00 EDT, [...] 05/02/22 13:11:00 EST, Route to Pharmacy Electronically, [facility] #[id number], Partial fill upon patient request if the prescription is for a schedule... Start Date: 05/02/22 Stop Date: 10/29/22 Status: Ordered lisinopril 5 mg oral tablet 1, tablet, By Mouth, Daily, # 90 tablet, Refills 0, Maintenance, 02/18/23 7:58:00 EDT, Route to Pharmacy Electronically, [facility] #[id number], 168, cm, 02/17/23 10:42:00 EDT, Height, 75.2, kg,11/09/22 22:57:00 EDT, Dry Weight Start Date: 02/18/23 Status: Ordered metFORMIN 500 mg oral tablet 1 tablet = 500 mg, By Mouth, 2 times a day, for 90 days, # 180 tablet, 1 Refills, Acute 07/18/23 12:00:00 EST, 01/19/23 12:00:00 EDT, Tablet, [facility] #[id number], 168, cm, 01/16/23 8:16:00 EDT, Height, 75.2, kg, 11/09/22 22:57:00 EDT, Dry Weight Start Date: 01/19/23 Stop Date: 07/18/23 Status: Ordered nitroglycerin 0.3 mg sublingual tablet 1 tablet = 0.3 mg, Sublingual, Every 5 minutes, PRN as needed for chest pain, not to exceed 3 doses/15 min--if pain persists, seek medical attention, # 100 tablet, 0 Refills, Maintenance, 12/04/20 10:05:00 EDT, Tablet, [facility] #[id number], Par... Start Date: 12/04/20 Status: Ordered oxyCODONE 10 mg oral tablet 1 tablet = 10 mg, By Mouth, Every 4 hours, PRN as needed for pain, Ok to fill less than prescribed amount M48.061, M96.1, # 168 tablet, 0 Refills, Maintenance, 03/24/23 15:53:00 EDT, Tablet, [facility] #[id number], Partial fill upon patient req... Start Date: [...] 8:36:00 EDT, Inhaler, Route to Pharmacy Electronically, [id number], [facility] #[id number]... Start Date: 01/16/23 Stop Date: 07/15/23 Status: [...] 0 Refills, Maintenance, 10/07/22 13:36:00 EDT, Capsule, [facility] #[id number], 167.6, cm, 10/07/22 13:14:00 EDT, Height, 74, [...] Confirmed Active Ischemic cardiomyopathy Confirmed 10/20/20 Active [facility] current use of opiate analgesic 12, 13, [...] past 12care ploan reviewed 13comm 2 14PHQ9;2. [place] 4, 15surgery 1991 16MRI 2006 17possible ITP 18monitor 19Tubular adenoma 2014 Diagnosis Diagnosis Type Effective Dates Health Status Clinical Service Informant Medicare annual wellness visit, subsequent Discharge Diagnosis 03/30/23 ASHD S/P CABG Discharge Diagnosis 03/30/23 Benign Essential Hypertension Discharge Diagnosis 03/30/23 Essential familial hyperlipidemia Discharge Diagnosis 03/30/23 Ischemic cardiomyopathy Discharge Diagnosis 03/30/23 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% Discharge Diagnosis 03/30/23 Chronic kidney disease, stage 2 (mild) Discharge Diagnosis 03/30/23 DM (diabetes mellitus), type 2 with peripheral vascular complications Discharge Diagnosis 03/30/23 Diabetes mellitus with renal manifestation Discharge Diagnosis 03/30/23 Ectatic aorta Discharge Diagnosis 03/30/23 Inguinal hernia left Discharge Diagnosis 03/31/23 Vitamin D deficiency Discharge Diagnosis 04/06/23 Spinal stenosis of lumbar region Discharge Diagnosis 04/06/23 Vital Signs Most recent to oldest [Reference Range]: 1 Height 165.5 cm (03/31/23 10:37 AM) Weight 72.3 kg (03/31/23 10:37 AM) Oxygen Saturation [94-100 %] 96 % (03/31/23 10:37 AM) Pulse Rate [55-90 bpm] 76 bpm (03/31/23 10:37 AM) Body Mass Index [18.5-24.99 kg/m2] 26.4 kg/m2 *H* (03/31/23 10:37 AM) Blood Pressure [90-138/55-84 mm Hg] 134/ 84mm Hg (03/31/23 10:37 AM) Temperature [96.8-100.4 DegF] 98.2 DegF (03/31/23 10:37 AM) Mode of Delivery (Oxygen) Room air (03/31/23 10:37 AM) Blood pressure sites Arm, left (03/31/23 10:37 AM) Temperature Route Oral (03/31/23 10:37 AM) Weight Obtained Via Standing scale (03/31/23 10:37 AM) Social History Social History Type Response Smoking Status Former smoker; Tobac co use times per day: smoked < 1/2 PPD; Started at age: 18; Stopped at age: 65; entered on: 12/23/13 Sex Patient Care team information Care Team Personnel Name: Philomena Castillo Position: [facility] RN Supv Member Role: Primary Care Nurse Name: Leticia Foster NP Position: [facility] PCO Associate Professional Member Role: PCP Address: Address: [address] [place] [id number] Name: Namita Barajas RN Position: [facility] RN Member Role: Primary Care Nurse Name: Tasha Back RN Position: [facility] RN Member Role: Primary Care Nurse Name: Jenny Bustilols RN Position: [facility] RN Member Role: Primary Care Nurse Name: Margarita Serrano RN Position: S RN Member Role: Primary Care Nurse Name: Michelle (Lillian Wang Position: [facility] loom changeover operator Member Role: Forming Department End Finder Name: Devin Benites RN Position: [facility] RN Member Role: Primary Care Nurse Name: Betsy Millan RN Position: [facility] RN Member Role: Primary Care Nurse Name: Peggy Jansen RN Position: [facility] RN Member Role: Primary Care Nurse Name: Cate Pabon RN Position: [facility] AMB Nurse Member Role: Primary Care Nurse Name: Janette Jones RN Position: [facility] RN Member Role: Primary Care Nurse Name: Deanne Hayes RN Position: [facility] RN Member Role: Primary Care Nurse Name: Vianney Mcneill RN Position: [facility] RN Member Role: Primary Care Nurse Name: Cindy Evans LPN Position: [facility] RN Member Role: Primary Care Nurse Care Team Related Persons Name: INGE MURRAY Address: home [address] [place] [id number] Name: NIK BARTON Address: [place] [address]
--- OUTSIDE RECORDS SUMMARY | 2023-05-02 16:32 | XMS_ITS | Continuity of Care Document ---
Author Name Unknown Organization [facility] Alessandro Cruz Sidney lt Address [address] [place] [address]- Care Team Providers Care Video Coordinator Name Role Phone Kristin Leticia SIMS Primary Care Physician [phone] Encounter [facility] Date(s): 04/09/23 - 04/16/23 [facility] Adult [address] [place] [address]- Encounter Diagnosis COPD exacerbation(Discharge Diagnosis) - 04/10/23 Attending Physician: Not on Staff, Attending MD [...] radha pneumococcal 20-valent conjugate vaccine 08/27/22 Recorded [id number] 12y+ bivalent booster vax 08/27/22 Recorded SARS-CoV-2 mRNA ([id number]) vax 8 06/29/21 Given SARS-CoV-2 (COVID-19) mRNA [...] 14 03/11/06 Given 1Result Comment: Flu HD [facility]#[id number] 2Result Comment: [facility]-[id number] 3Result Comment: [facility]: [id number] 4Result Comment: [02/28/2017] HD [facility]: [id number] 5[facility] 6Admin Note: VIS 12/18/2010 7Admin Note: VIS given 01/02/10 8Result Comment: [facility]-[id number] 9Admin Note: VIS 10Admin Note: VIS-GIVEN 11Admin [...] 0 Refills, Maintenance, 12/03/22 13:26:00 EDT, Powder, [facility] #[id number], 2 puffs Inhalation Every 4 hours,PRN:as needed, 168, cm, 11/21/22 9:25:00 EDT, Height, 75.2, kg,... Start Date: 12/03/22 Status: Ordered amLODIPine 5 mg oral tablet 1 tablet = 5 mg, By Mouth, Daily, # 90 tablet, 1 Refills, Maintenance, 10/07/22 21:43:00 EDT, Tablet, [facility] #[id number], 167.6, cm, 10/07/22 13:14:00 EDT, Height, 74, [...] tablet, 1 Refills, Maintenance, 03/21/23 12:54:00 EDT, [facility] #[id number], 168, cm, 02/17/23 10:42:00 EDT, Height, 75.2, kg, 11/09/22 22:57:00 EDT, Dry Weight Start Date: 03/21/23 Status: Ordered Coreg 6.25 mg oral tablet 6.25 mg, 1, tablet, By Mouth, 2 times a day, # 180 tablet, Refills 0, Tot. Refills 0, Maintenance, 01/09/23 20:35:00 EDT, Route to Pharmacy Electronically, [facility] #[id number], 168, cm, 01/08/23 13:26:00 EDT, Height, 75.2, kg, 11/09/22 22:57:0... Start Date: 01/09/23 Status: Ordered ezetimibe 10 mg oral tablet 1 tablet = 10 mg, By Mouth, Daily, for 90 days, # 90 tablet, 1 Refills, Hard Stop 05/21/23 11:47:00EST, 11/22/22 11:47:00 EDT, Tablet, [facility] #[id number], 168, cm, 11/21/22 9:25:00 EDT, Height, 75.2, kg, 11/09/22 22:57:00 EDT, Dry Weight Start Date: 11/22/22 Stop Date: 05/21/23 Status: Ordered ezetimibe 10 mg oral tablet 1 tablet = 10 mg, By Mouth, Daily, # 90 tablet, 1 Refills, Maintenance, 05/21/23 11:47:00 EST, Tablet, [facility] #[id number], 165.5, cm, 04/09/23 13:02:00 EST, Height, 75.2, kg, 11/09/22 22:57:00 EDT, Dry Weight Start Date: 05/21/23 Stop Date: 11/17/23 Status: Ordered Farxiga 10 mg oral tablet 1 tablet = 10 mg, By Mouth, Daily, Increased strength, # 30 tablet, 0 Refills, Maintenance, 01/16/22 9:53:00 EDT, Tablet, [facility] #[id number], Increased strength, 168, cm, 12/26/21 15:45:00 EDT, [...] 05/02/22 13:11:00 EST, Route to Pharmacy Electronically, [facility] #[id number], Partial fill upon patient request if the prescription is for a schedule... Start Date: 05/02/22 Stop Date: 10/29/22 Status: Ordered lisinopril 5 mg oral tablet 1, tablet, By Mouth, Daily, # 90 tablet, Refills 0, Maintenance, 02/18/23 7:58:00 EDT, Route to Pharmacy Electronically, [facility] #[id number], 168, cm, 02/17/23 10:42:00 EDT, Height, 75.2, kg,11/09/22 22:57:00 EDT, Dry Weight Start Date: 02/18/23 Status: Ordered metFORMIN 500 mg oral tablet 1 tablet = 500 mg, By Mouth, 2 times a day, for 90 days, # 180 tablet, 1 Refills, Acute 07/18/23 12:00:00 EST, 01/19/23 12:00:00 EDT, Tablet, [facility] #[id number], 168, cm, 01/16/23 8:16:00 EDT, Height, 75.2, kg, 11/09/22 22:57:00 EDT, Dry Weight Start Date: 01/19/23 Stop Date: 07/18/23 Status: Ordered nitroglycerin 0.3 mg sublingual tablet 1 tablet = 0.3 mg, Sublingual, Every 5 minutes, PRN as needed for chest pain, not to exceed 3 doses/15 min--if pain persists, seek medical attention, # 100 tablet, 0 Refills, Maintenance, 12/04/20 10:05:00 EDT, Tablet, [facility] #[id number], Par... Start Date: 12/04/20 Status: Ordered oxyCODONE 10 mg oral tablet 1 tablet = 10 mg, By Mouth, Every 4 hours, PRN as needed for pain, Ok to fill less than prescribed amount M48.061, M96.1, # 168 tablet, 0 Refills, Maintenance, 03/24/23 15:53:00 EDT, Tablet, [facility] #[id number], Partial fill upon patient req... Start Date: [...] 8:36:00 EDT, Inhaler, Route to Pharmacy Electronically, [id number], [facility] #[id number]... Start Date: 01/16/23 Stop Date: 07/15/23 Status: [...] 1 Refills, Maintenance, 04/09/23 13:15:00 EST, Capsule, [facility] #[id number], 165.5, cm, 04/09/23 13:02:00 EST, Height, 75.2, [...] Confirmed Active Ischemic cardiomyopathy Confirmed 10/20/20 Active custodial current use of opiate analgesic 12, 13, [...] past 12care ploan reviewed 13comm 2 14PHQ9;2. [place] 4, 15surgery 1991 16MRI 2006 17possible ITP 18monitor 19Tubular adenoma 2014 Diagnosis Diagnosis Type Effective Dates Health Status Clinical Service Informant COPD exacerbation Discharge Diagnosis 04/10/23 Vital Signs Most recent to oldest [Reference Range]: 1 Height 165.5 cm (04/09/23 1:02 PM) Weight 73.7 kg (04/09/23 1:02 PM) Oxygen Saturation [94-100 %] 98 % (04/09/23 1:02 PM) Pulse Rate [55-90 bpm] 78 bpm (04/09/23 1:02 PM) Body Mass Index [18.5-24.99 kg/m2] 26.91 kg/m2 *H* (04/09/23 1:02 PM) Blood Pressure [90-138/55-84 mm Hg] 126/ 71mm Hg (04/09/23 1:02 PM) Temperature [96.8-100.4 DegF] 98.1 DegF (04/09/23 1:02 PM) Mode of Delivery (Oxygen) Room air (04/09/23 1:02 PM) Blood pressure sites Arm, left (04/09/23 1:02 PM) Temperature Route Oral (04/09/23 1:02 PM) Weight Obtained Via Standing scale (04/09/23 1:02 PM) Social History Social History Type Response Smoking Status Former smoker; Tobac co use times per day: smoked < 1/2 PPD; Started at age: 18; Stopped at age: 65; entered on: 12/23/13 Sex Note * Scarlet Marques: SIGN, VERIFY, PERFORM Event Display: Patient Education/Instruction Authored Date: [id number] [facility] *BMP So [place] Dangelo Clinical Summary Name OSCAR MURRAY Age 78 Years 1945 PCP Kristin LEVI, Leticia Hope PCP Visit Date 04/09/2023 13:00:00 Additional Instructions: Scheduled Appointments?? Future Appointments ?*[facility] [address] ?[place],??[place],??[address] ?Phone:??--?Fax:??-- ?Appt. Date:??05/13/2023?2:00 PM ?Scheduled Provider:??Estefanía Red MD ?*BMP??So[place] ?[address] ?Phone:??--?Fax:??-- ?Appt. Date:??07/08/2023?9:10 AM ?Scheduled Provider:??Leticia Foster NP. Follow-Up Instructions ?? Diagnosis Medications: Please continue your medications until treatment is completed or stopped by your provider. Discuss any questions related to medications with your provider. New Medications [facility] #[id number], [address], [place] [id number], [phone] Amoxicillin-Clavulanate (Augmentin 875 mg-125 mg oral tablet) 1 tab(s) Oral every 12 hours for 7 Days. Refills: 0. Next Dose: Cholecalciferol (Vitamin D3 2000 intl units oral capsule) 1 capsule Oral Daily for 90 Days. Refills: 1. Next Dose: Pantoprazole (pantoprazole 40 mg oral delayed release tablet) 1 tab(s) Oral Daily. Refills: 1. Next Dose: PredniSONE (predniSONE 20 mg oral tablet) 1 tab(s) Oral twice a day for 5 Days. Refills: 0. Next Dose: Medications to Continue Taking That Have Changed [facility] #[id number], [address], [place] [id number], [phone] - Ezetimibe (ezetimibe 10 mg oral tablet) 1 tab(s) Oral Daily for 90 Days. Refills: 1. Next Dose: These medications were not printed or sent to your pharmacy - Ezetimibe (ezetimibe 10 mg oral tablet) 1 tab(s) Oral Daily for 90 Days. Refills: 1. Next Dose: Medications to Continue [...] twice a day. Refills: 0. Next Dose: dapagliflozin (Farxiga 10 [...] BID E11.9 PHILLIP-lifetime. Refills: 5. Next Dose: Isosorbide Mononitrate (isosorbide mononitrate 60 mg oral tablet, extended release) 1 tab(s) Oral Daily in the morning for 30 Days. Refills: 5. Next Dose: Lisinopril (lisinopril 5 mg oral tablet) 1 tab(s) Oral Daily. Refills: 0. Next Dose: Metformin (metFORMIN 500 mg oral [...] amount M48.061, M96.1. Refills: 0. Next Dose: Allergy Info:?? Duloxetine Medications Given This Visit Future Orders ?No future orders Vital Signs Height 165.5 cm Weight 73.7 kg BMI 26.91 kg/m2 Blood Pressure 126 mm Hg/71 mm Hg Temperature 98.1 DegF Pulse Rate 78 bpm Respiratory Rate 02 Sat Mode of Delivery 98 %/Room air You can now view a summary of your hospital visit from the comfort of your home through a free online portal called [employer]. [employer] is a website that allows you to securely view your medical information including discharge summary, medications and follow-up visits. ??You can alsosend a secure electronic message to your doctor???s office to request appointments, renew medications or just ask a question. You can enroll at [email or web address] or register during your next office visit. [...] primary care provider, you may find a [facility] provider by calling [facility] at [phone]. [facility], in keeping with [facility] guidance, no longer requires face masks for [...] format to support your individualized medical care. COPD Flare You have had a flare-up of your COPD. COPD, or chronic obstructive pulmonary disease, is a common lung disease. It causes your airways tobecome irritated and narrower. This makes it harder for you to breathe. Emphysema and chronic bronchitis are both types of COPD. This is a chronic condition, which means you always have it. Sometimesit gets worse. When this happens, it is called a flare-up. Symptoms of COPD People with COPD may have symptoms most of the time. In a flare-up, your symptoms get worse. These symptoms may mean you are having a flare-up: ??? Shortness of breath, shallow or rapid breathing, or wheezing that gets worse ??? Lung infection ??? Cough that gets worse ??? More mucus, thicker mucus or mucus of a different color ??? Tiredness, decreased energy, or trouble doing your usual activities ??? Fever ??? Chest tightness ??? Your symptoms don???t get better even when you use your usual medicines, inhalers, and nebulizer ??? Trouble talking ??? You feel confused Causes of flare-ups Unfortunately, a flare-up can happen even though you did everything right, and you followed your doctor???s instructions. Some causes of flare-ups are: ??? Smoking or secondhand smoke ??? Colds, the flu, or respiratory infections ??? Air pollution ??? Sudden change in the weather ??? Dust, irritating chemicals, or strong fumes ??? Not taking your medicines as prescribed Home care Here are some things you can do at home to treat a flare-up: ??? Try not to panic. This makes it harder to breathe, and keeps you from doing the right things. ??? Don???t smoke or be around others who are smoking. ??? Try to drink more fluids than usual during a flare-up, unless your doctor has told you not to because of heart and kidney problems. More fluids can help loosen the mucus. ??? Use your inhalers and nebulizer, if you have one, as you have been told to. ??? If you were given antibiotics, take them until they are used up or your doctor tells you to stop. It???s important to finish the antibiotics, even though you feel better. This will make sure the infection has cleared. ??? If you were given prednisone or another steroid, finish it even if you feel better. Preventing a flare-up Even though flare-ups happen, the best way to treat one is to prevent it before it starts. Here aresome pointers: ??? Don???t smoke or be around others who are smoking. ??? Take your medicines as you have been told. ??? Talk with your doctor about getting a flu shot every year. Also find out if you need a pneumonia shot. ??? If there is a weather advisory warning to stay indoors, try to stay inside when possible. ??? Try to eat healthy and get plenty of sleep. ??? Try to avoid things that usually set you off, like dust, chemical fumes, hairsprays, or strong perfumes. Follow-up care Follow up with your healthcare provider. If a culture was done, you will be told if your treatment needs to be changed. You can call as directed??for the results. If X-rays were done, and a radiologist had not seen them while you were there, they will be reviewed. You will be told if there is a change in the reading, especially if it affects your treatment. Call 911 Call 911 if any of these occur: ??? You have trouble breathing ??? You feel confused or it???s difficult to wake you up ??? You faint or lose consciousness ??? You have a rapid heart rate ??? You have new pain in your chest, arm, shoulder, neck or upper back When to seek medical advice Call your healthcare provider right away??if??any of these occur: ??? Wheezing or shortness of breath gets worse ??? You need to use your inhalers more often than usual without relief ??? Fever of 100.4??F??(38??C) or higher, or as directed ??? Coughing up lots of dark-colored or bloody sputum (mucus) ??? Chest pain with each breath ??? You do not start to get better within 24 hours ??? Swelling or your ankles gets worse ??? Dizziness or weakness ?? [id number] [employer]. [address] [place] [address], [place] [address]. All rights reserved. This information is not intended as a substitute for professional medical care. Always follow your healthcare professional's instructions. Patient Care team information Care Team Personnel Name: Philomena Castillo Position: [facility] RN Supv Member Role: Primary Care Nurse Name: Leticia Foster NP Position: [facility] PCO Associate Professional Member Role: PCP Address: Address: [address] [place] [address]- Name: Namita Barajas RN Position: S RN Member Role: Primary Care Nurse Name: Tasha Back RN Position: S RN Member Role: Primary Care Nurse Name: Jenny Bustillos RN Position: [facility] RN Member Role: Primary Care Nurse Name: Margarita Serrano RN Position: [facility] RN Member Role: Primary Care Nurse Name: Michelle ([facility]) Lillian Position: [facility] rn cardiac cath Member Role: Survey Compiler Name: Devin Benites RN Position: [facility] RN Member Role: Primary Care Nurse Name: Betsy Millan RN Position: [facility] RN Member Role: Primary Care Nurse Name: Peggy Jansen RN Position: [facility] RN Member Role: Primary Care Nurse Name: Cate Pabon RN Position: [facility] AMB Nurse Member Role: Primary Care Nurse Name: Janette Jones RN Position: [facility] RN Member Role: Primary Care Nurse Name: Deanne Hayes RN Position: [facility] RN Member Role: Primary Care Nurse Name: Vianney Mcneill RN Position: [facility] RN Member Role: Primary Care Nurse Name: Cindy Evans LPN Position: [facility] RN Member Role: Primary Care Nurse Care Team Related Persons Name: INGE MURRAY Address: [address] [place] [address] Name: NIK BARTON Address: [place] [address]
--- OUTSIDE RECORDS SUMMARY | 2023-05-02 16:32 | XMS_ITS | Continuity of Care Document ---
Author Name Unknown Organization [facility] Alessandro Cruz [place] lt Address [address] [place] [address]- Care Team Providers Care Teenage Babysitter Name Role Phone Kristin Leticia SIMS Primary Care Physician [phone] Encounter [facility] Date(s): 02/25/23 - 03/27/23 [facility] Alessandro Cruz Adult [address] [place] [address]- Allergies, Adverse Reactions, Alerts Substance Reaction Severity [...] radha pneumococcal 20-valent conjugate vaccine 08/27/22 Recorded [id number] 12y+ bivalent booster vax 08/27/22 Recorded SARS-CoV-2 mRNA ([id number]) vax 8 06/29/21 Given SARS-CoV-2 (COVID-19) mRNA [...] 14 03/11/06 Given 1Result Comment: Flu HD [facility]#[id number] 2Result Comment: [facility]-[id number] 3Result Comment: [facility]: [id number] 4Result Comment: [02/28/2017] HD [facility]: [id number] 5[facility] 6Admin Note: VIS 12/18/2010 7Admin Note: VIS given 01/02/10 8Result Comment: [facility]-[id number] 9Admin Note: VIS 10Admin Note: VIS-GIVEN 11Admin [...] 0 Refills, Maintenance, 12/03/22 13:26:00 EDT, Powder, [facility] #[id number], 2 puffs Inhalation Every 4 hours,PRN:as needed, 168, cm, 11/21/22 9:25:00 EDT, Height, 75.2, kg,... Start Date: 12/03/22 Status: Ordered amLODIPine 5 mg oral tablet 1 tablet = 5 mg, By Mouth, Daily, # 90 tablet, 1 Refills, Maintenance, 10/07/22 21:43:00 EDT, Tablet, [facility] #[id number], 167.6, cm, 10/07/22 13:14:00 EDT, Height, 74, [...] tablet, 1 Refills, Maintenance, 03/21/23 12:54:00 EDT, [facility] #[id number], 168, cm, 02/17/23 10:42:00 EDT, Height, 75.2, kg, 11/09/22 22:57:00 EDT, Dry Weight Start Date: 03/21/23 Status: Ordered Coreg 6.25 mg oral tablet 6.25 mg, 1, tablet, By Mouth, 2 times a day, # 180 tablet, Refills 0, Tot. Refills 0, Maintenance, 01/09/23 20:35:00 EDT, Route to Pharmacy Electronically, [facility] #[id number], 168, cm, 01/08/23 13:26:00 EDT, Height, 75.2, kg, 11/09/22 22:57:0... Start Date: 01/09/23 Status: Ordered ezetimibe 10 mg oral tablet 1 tablet = 10 mg, By Mouth, Daily, # 90 tablet, 1 Refills, Maintenance, 11/22/22 11:47:00 EDT, Tablet, [facility] #[id number], 168, cm, 11/21/22 9:25:00 EDT, Height, 75.2, kg, 11/09/22 22:57:00 EDT, Dry Weight Start Date: 11/22/22 Stop Date: 05/21/23 Status: Ordered Farxiga 10 mg oral tablet 1 tablet = 10 mg, By Mouth, Daily, Increased strength, # 30 tablet, 0 Refills, Maintenance, 01/16/22 9:53:00 EDT, Tablet, [facility] #[id number], Increased strength, 168, cm, 12/26/21 15:45:00 EDT, [...] 05/02/22 13:11:00 EST, Route to Pharmacy Electronically, [facility] #[id number], Partial fill upon patient request if the prescription is for a schedule... Start Date: 05/02/22 Stop Date: 10/29/22 Status: Ordered lisinopril 5 mg oral tablet 1, tablet, By Mouth, Daily, # 90 tablet, Refills 0, Maintenance, 02/18/23 7:58:00 EDT, Route to Pharmacy Electronically, [facility] #[id number], 168, cm, 02/17/23 10:42:00 EDT, Height, 75.2, kg,11/09/22 22:57:00 EDT, Dry Weight Start Date: 02/18/23 Status: Ordered metFORMIN 500 mg oral tablet 1 tablet = 500 mg, By Mouth, 2 times a day, for 90 days, # 180 tablet, 1 Refills, Acute 07/18/23 12:00:00 EST, 01/19/23 12:00:00 EDT, Tablet, [facility] #[id number], 168, cm, 01/16/23 8:16:00 EDT, Height, 75.2, kg, 11/09/22 22:57:00 EDT, Dry Weight Start Date: 01/19/23 Stop Date: 07/18/23 Status: Ordered nitroglycerin 0.3 mg sublingual tablet 1 tablet = 0.3 mg, Sublingual, Every 5 minutes, PRN as needed for chest pain, not to exceed 3 doses/15 min--if pain persists, seek medical attention, # 100 tablet, 0 Refills, Maintenance, 12/04/20 10:05:00 EDT, Tablet, [facility] #[id number], Par... Start Date: 12/04/20 Status: Ordered oxyCODONE 10 mg oral tablet 1 tablet = 10 mg, By Mouth, Every 4 hours, PRN as needed for pain, Ok to fill less than prescribed amount M48.061, M96.1, # 168 tablet, 0 Refills, Maintenance, 03/24/23 15:53:00 EDT, Tablet, [facility] #[id number], Partial fill upon patient req... Start Date: [...] 8:36:00 EDT, Inhaler, Route to Pharmacy Electronically, [id number], [facility] #[id number]... 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 [place] 4, 15surgery 1991 16MRI 2006 17possible ITP 18monitor 19Tubular adenoma 2014 Social History Social History Type Response Smoking Status Former smoker; Tobac co use times per day: smoked < 1/2 PPD; Started at age: 18; Stopped at age: 65; entered on: 12/23/13 Sex Patient Care team information Care Team Personnel Name: Philomena Castillo Position: [facility] RN Supv Member Role: Primary Care Nurse Name: Leticia Foster NP Position: [facility] PCO Associate Professional Member Role: PCP Address: Address: [address] [place] [id number] Name: Namita Barajas RN Position: [facility] RN Member Role: Primary Care Nurse Name: Tasha Back RN Position: [facility] RN Member Role: Primary Care Nurse Name: Jenny Bustillos RN Position: [facility] RN Member Role: Primary Care Nurse Name: Margarita Serrano RN Position: [facility] RN Member Role: Primary Care Nurse Name: Michelle ([facility]) Lillian Position: [facility] manager water Member Role: Paper Production Engineer Name: Devin Benites RN Position: [facility] RN Member Role: Primary Care Nurse Name: Betsy Millan RN Position: [facility] RN Member Role: Primary Care Nurse Name: Peggy Jansen RN Position: [facility] RN Member Role: Primary Care Nurse Name: Cate Pabon RN Position: [facility] AMB Nurse Member Role: Primary Care Nurse Name: Janette Jones RN Position: [facility] RN Member Role: Primary Care Nurse Name: Deanne Hayes RN Position: [facility] RN Member Role: Primary Care Nurse Name: Vianney Mcneill RN Position: S RN Member Role: Primary Care Nurse Name: Cindy Evans LPN Position: S RN Member Role: Primary Care Nurse Care Team Related Persons Name: INGE MURRAY Address: home [address] [place] [id number] Name: NIK BARTON Address: [place] [address]
--- OUTSIDE RECORDS SUMMARY | 2023-05-02 16:32 | XMS_ITS | Continuity of Care Document ---
Author Name Unknown Organization [facility] [place] lt Address [address] [place] [address]- Care Team Providers Care Rn Pain Management Name Role Phone Kristin Leticia SIMS Primary Care Physician [phone] Encounter [facility] Date(s): 01/08/23 - 01/15/23 [facility] Adult [address] [place] [address]- Encounter Diagnosis COPD exacerbation(Discharge Diagnosis) - 01/08/23 Attending Physician: Not on Staff, Attending MD Allergies, Adverse Reactions, Alerts Substance Reaction Severity Status Duloxetine 1 rash Active 1GI Immunizations Given and Recorded Vaccine Date Status Refusal Reason pneumococcal 20-valent conjugate vaccine 08/27/22 Recorded [id number] 12y+ bivalent booster vax 08/27/22 Recorded influenza [...] inactivated 6 08/01/10 Gi radha SARS-CoV-2 mRNA (qzmjmdg-page-rjibp) vax 7 06/29/21 Given SARS-CoV-2 (COVID-19) mRNA [...] Vaccine (oldterm) 13 03/11/06 Given 1Result Comment: [facility]-[id number] 2Result Comment: [facility]: 35602-366-02 3Result Comment: [02/28/2017] HD [facility]: 96291-342-72 [facility] 5Admin Note: VIS 12/18/2010 6Admin Note: VIS given 01/02/10 7Result Comment: [facility]-[id number] 8Admin Note: VIS 9Admin Note: VIS-GIVEN 10Admin [...] 0 Refills, Maintenance, 12/03/22 13:26:00 EDT, Powder, [facility][id number], 2 puffs Inhalation Every 4 hours,PRN:as needed, 168, cm, 11/21/22 9:25:00 EDT, Height, 75.2, kg,... Start Date: 12/03/22 Status: Ordered amLODIPine 5 mg oral tablet 1 tablet = 5 mg, By Mouth, Daily, # 90 tablet, 1 Refills, Maintenance, 10/07/22 21:43:00 EDT, Tablet, [facility] #[id number], 167.6, cm, 10/07/22 13:14:00 EDT, Height, 74, [...] tablet, 1 Refills, Maintenance, 10/07/22 21:43:00 EDT, [facility] #[id number], 167.6, cm, 10/07/22 13:14:00 EDT, Height, 74, kg, 04/06/22 1:20:00 EST, Dry Weight Start Date: 10/07/22 Status: Ordered Coreg 6.25 mg oral tablet 6.25 mg, 1, tablet, By Mouth, 2 times a day, # 180 tablet, Refills 0, Tot. Refills 0, Maintenance, 01/09/23 20:35:00 EDT, Route to Pharmacy Electronically, [facility] #[id number], 168, cm, 01/08/23 13:26:00 EDT, Height, 75.2, kg, 11/09/22 22:57:0... Start Date: 01/09/23 Status: Ordered ezetimibe 10 mg oral tablet 1 tablet = 10 mg, By Mouth, Daily, # 90 tablet, 1 Refills, Maintenance, 11/22/22 11:47:00 EDT, Tablet, [facility] #[id number], 168, cm, 11/21/22 9:25:00 EDT, Height, 75.2, kg, 11/09/22 22:57:00 EDT, Dry Weight Start Date: 11/22/22 Stop Date: 05/21/23 Status: Ordered Farxiga 10 mg oral tablet 1 tablet = 10 mg, By Mouth, Daily, Increased strength, # 30 tablet, 0 Refills, Maintenance, 01/16/22 9:53:00 EDT, Tablet, [facility] #[id number], Increased strength, 168, cm, 12/26/21 15:45:00 EDT, [...] 05/02/22 13:11:00 EST, Route to Pharmacy Electronically, [facility] #[id number], Partial fill upon patient request if the prescription is for a schedule... Start Date: 05/02/22 Stop Date: 10/29/22 Status: Ordered lisinopril 5 mg oral tablet 5 mg, 1, tablet, By Mouth, Daily, # 90 tablet, Refills 3, Tot. Refills 3, Maintenance, 03/10/22 22:37:00 EDT, Route to Pharmacy Electronically, [facility] #[id number], Partial fill upon patient request if the prescription is for a schedule II opi... Start Date: 10/16/22 Status: Ordered metFORMIN 500 mg oral tablet See Instructions, 1 tablet by mouth daily x 1 week then increase to 1 tablet 2 times a day, # 180 tablet, 0 Refills, Acute 01/19/23 12:00:00 EDT, 10/07/22 21:12:00 EDT, Tablet, [facility] #[id number], Partial fill upon patient request if the pres... Start Date: 10/07/22 Stop Date: 01/19/23 Status: Ordered nitroglycerin 0.3 mg sublingual tablet 1 tablet = 0.3 mg, Sublingual, Every 5 minutes, PRN as needed for chest pain, not to exceed 3 doses/15 min--if pain persists, seek medical attention, # 100 tablet, 0 Refills, Maintenance, 12/04/20 10:05:00 EDT, Tablet, [facility] #[id number], Par... Start Date: 12/04/20 Status: Ordered oxyCODONE 10 mg oral tablet 1 tablet = 10 mg, By Mouth, Every 4 hours, PRN as needed for pain, Ok to fill less than prescribed amount M48.061, M96.1, # 168 tablet, 0 Refills, Maintenance, 12/27/22 9:57:00 EDT, Tablet, [facility] #[id number], Partial fill upon patient requ... 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 [place] 4, 15surgery 1991 16MRI 2006 17possible ITP 18monitor 19Tubular adenoma 2014 Diagnosis Diagnosis Type Effective Dates Health Status Clinical Service Informant COPD exacerbation Discharge Diagnosis 01/08/23 Vital Signs Most recent to oldest [Reference Range]: 1 Height 168 cm (01/08/23 1:26 PM) Weight 71.0 kg (01/08/23 1:26 PM) Oxygen Saturation [94-100 %] 96 % (01/08/23 1:26 PM) Pulse Rate [55-90 bpm] 58 bpm (01/08/23 1:26 PM) Body Mass Index [18.5-24.99 kg/m2] 25.16 kg/m2 *H* (01/08/23 1:26 PM) Blood Pressure [90-138/55-84 mm Hg] 134/ 75mm Hg (01/08/23 1:26 PM) Temperature [96.8-100.4 DegF] 98.3 DegF (01/08/23 1:26 PM) Mode of Delivery (Oxygen) Room air (01/08/23 1:26 PM) Blood pressure sites Arm, left (01/08/23 1:26 PM) Temperature Route Oral (01/08/23 1:26 PM) Weight Obtained Via Standing scale (01/08/23 1:26 PM) Social History Social History Type Response Smoking Status Former smoker; Tobac co use times per day: smoked < 1/2 PPD; Started at age: 18; Stopped at age: 65; entered on: 12/23/13 Sex Patient Care team information Care Team Personnel Name: Philomena Castillo Position: [facility] RN Supv Member Role: Primary Care Nurse Name: Leticia Foster NP Position: [facility] PCO Associate Professional Member Role: PCP Address: Address: [address] [place] [id number] Name: Namita Barajas RN Position: [facility] RN Member Role: Primary Care Nurse Name: Tasha Back RN Position: S RN Member Role: Primary Care Nurse Name: Margarita Serrano RN Position: S RN Member Role: Primary Care Nurse Name: Lillian Martinez Position: [facility] fire controlman Member Role: Warehouse Team Member Name: Devin Benites RN Position: S RN Member Role: Primary Care Nurse Name: Betsy Millan RN Position: S RN Member Role: Primary Care Nurse Name: Peggy Jansen RN Position: [facility] RN Member Role: Primary Care Nurse Name: Cate Pabon RN Position: [facility] AMB Nurse Member Role: Primary Care Nurse Name: Janette Jones RN Position: [facility] RN Member Role: Primary Care Nurse Name: Deanne Hayes RN Position: [facility] RN Member Role: Primary Care Nurse Name: Vianney Mcneill RN Position: [facility] RN Member Role: Primary Care Nurse Name: Cindy Evans LPN Position: [facility] RN Member Role: Primary Care Nurse Care Team Related Persons Name: INGE MURRAY Address: [address] [place] [address] Name: NIK BARTON Address: [place] [address]
--- OUTSIDE RECORDS SUMMARY | 2023-05-02 16:32 | XMS_ITS | Continuity of Care Document ---
Author Name Unknown Organization [facility] Alessandro [facility] lt Address [address] [place] [address]- Care Team Providers Care Cuffer Name Role Phone Kristin Leticia SIMS Primary Care Physician Encounter [facility] Date(s): 03/24/23 - 04/23/23 [facility] Adult [address] [place] [address]- Allergies, Adverse Reactions, Alerts Substance Reaction Severity [...] radha pneumococcal 20-valent conjugate vaccine 08/27/22 Recorded [id number] 12y+ bivalent booster vax 08/27/22 Recorded SARS-CoV-2 mRNA ([id number]-siss-qpsoo) vax 8 06/29/21 Given SARS-CoV-2 (COVID-19) mRNA [...] 1Result Comment: Flu HD [facility]#[id number] 2Result Comment: [facility]-[id number] 3Result Comment: [facility]: [id number] 4Result Comment: [02/28/2017] HD [facility]: [id number] 5[facility] 6Admin Note: VIS 12/18/2010 7Admin Note: VIS given 01/02/10 8Result Comment: [facility]-[id number] 9Admin Note: VIS 10Admin Note: VIS-GIVEN 11Admin [...] 0 Refills, Maintenance, 12/03/22 13:26:00 EDT, Powder, [facility] #[id number], 2 puffs Inhalation Every 4 hours,PRN:as needed, 168, cm, 11/21/22 9:25:00 EDT, Height, 75.2, kg,... Start Date: 12/03/22 Status: Ordered amLODIPine 5 mg oral tablet 1 tablet = 5 mg, By Mouth, Daily, # 90 tablet, 1 Refills, Maintenance, 10/07/22 21:43:00 EDT, Tablet, [facility] #[id number], 167.6, cm, 10/07/22 13:14:00 EDT, Height, 74, [...] tablet, 1 Refills, Maintenance, 03/21/23 12:54:00 EDT, [facility] #[id number], 168, cm, 02/17/23 10:42:00 EDT, Height, 75.2, kg, 11/09/22 22:57:00 EDT, Dry Weight Start Date: 03/21/23 Status: Ordered Coreg 6.25 mg oral tablet 6.25 mg, 1, tablet, By Mouth, 2 times a day, # 180 tablet, Refills 0, Tot. Refills 0, Maintenance, 01/09/23 20:35:00 EDT, Route to Pharmacy Electronically, [facility] #[id number], 168, cm, 01/08/23 13:26:00 EDT, Height, 75.2, kg, 11/09/22 22:57:0... Start Date: 01/09/23 Status: Ordered ezetimibe 10 mg oral tablet 1 tablet = 10 mg, By Mouth, Daily, for 90 days, # 90 tablet, 1 Refills, Hard Stop 05/21/23 11:47:00EST, 11/22/22 11:47:00 EDT, Tablet, [facility] #[id number], 168, cm, 11/21/22 9:25:00 EDT, Height, 75.2, kg, 11/09/22 22:57:00 EDT, Dry Weight Start Date: 11/22/22 Stop Date: 05/21/23 Status: Ordered ezetimibe 10 mg oral tablet 1 tablet = 10 mg, By Mouth, Daily, # 90 tablet, 1 Refills, Maintenance, 05/21/23 11:47:00 EST, Tablet, [facility] #[id number], 165.5, cm, 04/09/23 13:02:00 EST, Height, 75.2, kg, 11/09/22 22:57:00 EDT, Dry Weight Start Date: 05/21/23 Stop Date: 11/17/23 Status: Ordered Farxiga 10 mg oral tablet 1 tablet = 10 mg, By Mouth, Daily, Increased strength, # 30 tablet, 0 Refills, Maintenance, 01/16/22 9:53:00 EDT, Tablet, [facility] #[id number], Increased strength, 168, cm, 12/26/21 15:45:00 EDT, [...] 05/02/22 13:11:00 EST, Route to Pharmacy Electronically, [facility] #[id number], Partial fill upon patient request if the prescription is for a schedule... Start Date: 05/02/22 Stop Date: 10/29/22 Status: Ordered lisinopril 5 mg oral tablet 1, tablet, By Mouth, Daily, # 90 tablet, Refills 0, Maintenance, 02/18/23 7:58:00 EDT, Route to Pharmacy Electronically, [facility] #[id number], 168, cm, 02/17/23 10:42:00 EDT, Height, 75.2, kg,11/09/22 22:57:00 EDT, Dry Weight Start Date: 02/18/23 Status: Ordered metFORMIN 500 mg oral tablet 1 tablet = 500 mg, By Mouth, 2 times a day, for 90 days, # 180 tablet, 1 Refills, Acute 07/18/23 12:00:00 EST, 01/19/23 12:00:00 EDT, Tablet, [facility] #[id number], 168, cm, 01/16/23 8:16:00 EDT, Height, 75.2, kg, 11/09/22 22:57:00 EDT, Dry Weight Start Date: 01/19/23 Stop Date: 07/18/23 Status: Ordered nitroglycerin 0.3 mg sublingual tablet 1 tablet = 0.3 mg, Sublingual, Every 5 minutes, PRN as needed for chest pain, not to exceed 3 doses/15 min--if pain persists, seek medical attention, # 100 tablet, 0 Refills, Maintenance, 12/04/20 10:05:00 EDT, Tablet, [facility] #[id number], Par... Start Date: 12/04/20 Status: Ordered oxyCODONE 10 mg oral tablet 1 tablet = 10 mg, By Mouth, Every 4 hours, PRN as needed for pain, Ok to fill less than prescribed amount M48.061, M96.1, # 168 tablet, 0 Refills, Maintenance, 04/22/23 14:28:00 EST, Tablet, [facility] #[id number], Partial fill upon patient req... Start Date: [...] 8:36:00 EDT, Inhaler, Route to Pharmacy Electronically, [id number], [facility] #[id number]... 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 3no showurology 4bx dec 2012 5fev1 89% 6colonoscopy 2015,mild 7refer teaching 8neg bx 9BIOPSY PLANNED 10DR anish addressing 11had viagra past 12care ploan reviewed 13comm 2 14PHQ9;2. [place] 4, 15surgery 1991 16MRI 2006 17possible ITP [...] Care Nurse Name: Leticia Foster NP Position: [facility] PCO Associate Professional Member Role: PCP Address: Address: [address] [place] [id number]- Name: Namita Barajas RN Position: S RN Member Role: Primary Care Nurse Name: Tasha Back RN Position: S RN Member Role: Primary Care Nurse Name: Jenny Bustillos RN Position: S RN Member Role: Primary Care Nurse Name: Margarita Serrano RN Position: S RN Member Role: Primary Care Nurse Name: Michelle ([facility]) Lillian Position: [facility] cleat feeder Member Role: Binding Folder Machine Name: Devin Benites RN Position: [facility] RN Member Role: Primary Care Nurse Name: Betsy Millan RN Position: [facility] RN Member Role: Primary Care Nurse Name: Peggy Jansen RN Position: [facility] RN Member Role: Primary Care Nurse Name: Cate Pabon RN Position: [facility] AMB Nurse Member Role: Primary Care Nurse Name: Janette Jones RN Position: [facility] RN Member Role: Primary Care Nurse Name: Deanne Hayes RN Position: [facility] RN Member Role: Primary Care Nurse Name: Vianney Mcneill RN Position: [facility] RN Member Role: Primary Care Nurse Name: Cindy Evans LPN Position: [facility] RN Member Role: Primary Care Nurse Care Team Related Persons Name: INGE MURRAY Address: home [address] [place] [id number] Name: NIK BARTON Address: [place] [address]
[2023-05-02] MEDS: methylPREDNISolone Sod Succ 125 MG/2 ML VIAL IVPUSH (16:49)
[2023-05-02 17:11] LABS: Troponin-I High Sensitivity 3.5 ng/L (<3.5-35.0)
[2023-05-02] MEDS: Albuterol Sulfate 5 MG, Albuterol/Iprat 2.5/0.5MG 3 ML 3 ML INHALE (17:23)
[2023-05-02 17:26] VITALS: PULSE 76; RESP 18; O2SAT 94
[2023-05-02 18:41] VITALS: BP 138/65; PULSE 72; RESP 19; O2SAT 97
[2023-05-02 20:34] VITALS: PULSE 75; RESP 20; O2SAT 97
[2023-05-02] MEDS: Albuterol/Iprat 2.5/0.5MG 3 ML AMPUL.NEB INHALE (20:34)
[2023-05-02 21:24] VITALS: BP 124/74; PULSE 78; RESP 24; O2SAT 98
--- NOTE | 2023-05-02 22:18 | PHA.MEDREC ---
Pharmacy Consult ? Medication Reconciliation Pharmacy has completed the medication reconciliation. Patient confirmed medications based on claim history. Maryan HuangD
--- NOTE | 2023-05-02 23:03 | P.HPHOSP_ITS ---
History of Present Illness Date of Service: 05/02/23 Attending physician on admission: Des Mcmahan Chief Complaint: Persistent dyspnea on exertion and cough x 3 days 78 year old male with underlying history of CAD (s/p CABG), CHF, CVA, HTN, HLD, type diabetes mellitus, and asthma-COPD presents to the emergency room from an urgent care clinic complaining of cough productive of clear phlegm and progressively worsening shortness of breath over the last 2 days. He is so short of breath that he cannot speak in full sentences. He denies any recent travel or sick contacts. He used his inhaler without any significant improvement. He denies any associated with chest pain, fevers or chills. Initial work up done in the ED revealed a normal chest x-ray and normal blood work (except for platelet count of 134). He received 125 mg of IV SoluMedrol and an hour long Duo Neb updraft with minimal improvement. He is still very dyspneic and only able to speak 2-3 words before going into a coughing fit. A decision was therefore made to admit her for continued care. Review of Systems 2 Review of Systems: Yes all other systems are reviewed and are negative COUNT INCLUDES [facility] Medical History CVA (cerebral vascular accident) Type 2 diabetes mellitus Hyperlipidemia Hypertension CHF (congestive heart failure) CAD (coronary artery disease) COPD (chronic obstructive pulmonary disease) Surgical History Hx of CABG Social History Household Members: Family Housing: House Do you presently have visiting nurse or other home services: Yes Alcohol intake: never Patient Tobacco Use Status: Former Tobacco user Smoked in Last 30 Days: No Use of substances other than those prescribed or required for medical reasons: No Any prior treatment program specific to substance use: No Have you been hit, kicked, punched, or otherwise hurt by someone within the past year? If so, by whom?: No Do you feel safe in your current relationship?: Yes Is there a partner from a previous relationship who is making you feel unsafe now?: No Are you made to feel afraid or neglected: No Cultural Healthcare Practices: [employer] Advance Directives: Yes Advance Directives on File: Yes Advance Directives Date on File: 12/10/22 Do you have thoughts of harming others: None Do you have a plan to hurt others: No Plan Recently lost weight without trying: Yes How much weight loss: 2-13 pounds Eating poorly because of decreased appetite: No Nutrition screen score: 3 Nutrition Risks: No Nutritional Risk Poor oral hygiene: No service: No Meds Allergies Allergy/AdvReac Type Severity Reaction Status Date / Time No Known Allergies Allergy Verified 12/09/22 10:45 Home Medications Medication Instructions Recorded Confirmed Last Taken Type albuterol sulfate 90 mcg/actuation 2 puff inhalation Q4H PRN 12/09/22 05/02/23 Unknown History aerosol inhaler (Ventolin HFA) Shortness Of Breath Or Wheezing amlodipine 5 mg tablet 5 mg PO DAILY 12/09/22 05/02/23 05/02/23 History ascorbic acid (vitamin C) 500 mg 500 mg PO DAILY 12/09/22 05/02/23 05/02/23 History tablet (Vitamin C) atorvastatin 80 mg tablet 80 mg PO DAILY 12/09/22 05/02/23 05/02/23 History carvedilol 6.25 mg tablet 6.25 mg PO BID 12/09/22 05/02/23 05/02/23 History cholecalciferol (vitamin D3) 50 50 mcg PO DAILY 12/09/22 05/02/23 05/02/23 History mcg (2,000 unit) capsule ezetimibe 10 mg tablet 10 mg PO DAILY 12/09/22 05/02/23 05/02/23 History lamotrigine 25 mg tablet 25 mg PO BID 12/09/22 05/02/23 05/02/23 History lisinopril 5 mg tablet 5 mg PO DAILY 12/09/22 05/02/23 05/02/23 History metformin 500 mg tablet 500 mg PO BID 12/09/22 05/02/23 05/02/23 History oxycodone 10 mg tablet 10 mg PO Q4H PRN pain 12/09/22 05/02/23 12/08/22 History pantoprazole 40 mg tablet,delayed 40 mg PO DAILY 12/09/22 05/02/23 05/02/23 History release ipratropium 0.5 mg-albuterol 3 mg 3 ml inhalation Q8H shortness of 05/02/23 05/02/23 05/02/23 History (2.5 mg base)/3 mL nebulization breath or wheezing soln Physical Exam 2 Vital Signs and Narrative: Vital Signs: Last Vital Signs Temp 97.2 F 05/02/23 11:50 Pulse 78 05/02/23 21:24 Resp 24 H 05/02/23 21:24 BP 124/74 05/02/23 21:24 Pulse Ox 98 05/02/23 21:24 O2 Del Method Room Air 05/02/23 21:24 BMI result Body Mass Index 28.4 General: Well nourished elderly male in bed. Appears calm while at rest but gets very dyspneic just speaking. Eyes: No pallor or jaundice. PERRLA, EOMI HENT: Moist oral mucus membranes. No oropharyngeal lesions. Neck: Supple. No cervical adenopathy. No JVD Cardiovascular: Regular rate and rhythm. Normal heart sounds. No murmurs, rubs or gallops. No JVD. No peripheral edema. Respiratory: Noted with both inspiratory and expiratory wheezes. Donte with coughing fits Gastrointestinal: Abdomen is soft, non-tender, non-distended. Normoactive bowel sounds. No hepatosplenomegaly Extremities: No edema. No calf tenderness. Good peripheral pulses Skin - Warm/Dry. No rashes. No mottling. Capillary refill is < 2 seconds Neurological: AAOx4. Intact speech & cognition. Moves all extremities spontaneously.. CN II - XII grossly intact but not individually tested. No motor or sensory deficits Hematologic: No bleeding. No ecchymosis. No swollen or tender lymph nodes. Psychiatric: Cooperative. Appropriate mood and affect . Results Labs 05/02/23 14:30 05/02/23 14:30 Labs: Laboratory Results - last 24 hr 05/02/23 14:30 MCV 89.5 MCH 29.4 MCHC 32.8 RDW 12.5 Plt Count 134 L MPV 11.6 Immature Gran % (Auto) 0.3 Neut % (Auto) 57.8 Lymph % (Auto) 22.9 [place] % (Auto) 10.2 Eos % (Auto) 8.1 H Baso % (Auto) 0.7 Lymph # (Auto) 1.7 [place] # (Auto) 0.7 Eos # (Auto) 0.6 H Baso # (Auto) 0.1 Abs Immat Gran (auto) 0.02 Absolute Neuts (auto) 4.2 Absolute Nucleated RBC 0.000 Nucleated RBC % (auto) 0.0 Anion Gap 13 Estim Creat Clear Calc 47.4 Estimated GFR > 60 Random Glucose 240 H Calcium 9.6 Total Bilirubin 0.7 AST 19 ALT 28 Alkaline Phosphatase 83 B-Natriuretic Peptide 71 Total Protein 7.4 Albumin 4.4 Influenza Type A (PCR) NEGATIVE Influenza Type B (PCR) NEGATIVE RSV RNA Qual (PCR) NEGATIVE SARS-CoV-2 RNA (RT-PCR) NEGATIVE ECG ECG interpretation date: 05/03/23 ECG interpretation time: 05:11 Prior ECG tracings: available for review Interpretation: NSR at 70 bpm with normal axis and intervals. No acute ischemic changes. Imaging Radiologist's Impressions: Impressions Chest X-Ray 05/02/23 12:25 IMPRESSION: Post-CABG changes. No evidence for acute disease in the chest. Assessment and Plan (1) Acute exacerbation of COPD with asthma: Status: Acute (2) Acute hypoxemic respiratory failure: Status: Acute (3) Hypertension, essential: Status: Acute Plan 78 year old male with underlying history of CAD (s/p CABG), CHF, CVA, HTN, HLD, type diabetes mellitus, and asthma-COPD here with 1. Exacerbation of COPD Asthma - admit and continue with scheduled Steroids and Duo Neb updrafts - continue with supplemental Oxygen to keep SpO2 between 88-92% - PRN anti-tussives 2. Hypertension - BP control is sub-optimal - resume Amlodipine, Carvedilol and Lisinopril 3. Hyperlipidemia - resume Atorvastatin and Ezetimibe 4. Type 2 Diabetes Mellitus - resume Metformin DVT: SC Lovenox CODE STATUS: Full code Admission for at least 2 midnights for management of OPD-asthma exacerbation Total time managing care of this patient today: 65 minutes. Quality Stroke Does the patient have a stroke diagnosis?: No VTE Prior VTE?: No VTE Risk Level:: Medical - moderate - high VTE Device Contraindication: N/A - Device Ordered VTE Drug Contraindication: N/A - Med Ordered
[2023-05-03] VITALS (8 sets, daily range): BP systolic 113–141; BP diastolic 63–71; PULSE 65–87; RESP 16–20; TEMP 36–36.4; O2SAT 94–99; BMI 28.0
[2023-05-03] MEDS: Enoxaparin Sodium 40 MG/0.4 ML SYRINGE SUBCUT (01:08)
[2023-05-03] MEDS: 0.9 % Sodium Chloride Flush 3 ML SYRINGE IVFLUSH ×2 (01:09→09:01)
[2023-05-03] MEDS: Acetaminophen 325 MG TABLET 650 MG PO (01:39)
[2023-05-03] MEDS: guaiFEN/Codeine SF 200/20/10ML 10 ML LIQUID PO (01:39)
[2023-05-03 05:37] LABS: MANUAL DIFF FLAG NO
[2023-05-03 05:45] LABS: Basophils Percent Auto 0.2 % (0-2); Eosinophils Percent Auto 0.2 % (0-4); Hemoglobin 13.1 g/dl (14.0-18.0); Imm Gran Abs Auto 0.01 X10*3/uL (0.00-0.03); Imm Gran Pct Auto 0.2 % (0.0-0.4); Lymphocytes Absolute Auto 0.7 X10*3/uL (1.2-4.9); Lymphocytes Percent Auto 13.8 % (20-40); Mean Corpuscular HGB Conc 34.5 g/dl (31.0-36.0); Mean Corpuscular Hemoglobin 30.3 pg (27.0-33.0); Mean Platelet Volume 12.3 fL (9.4-12.4); Monocytes Absolute Auto 0.1 X10*3/uL (0.1-1.2); Neutrophils Absolute Auto 4.2 x10*3/uL (2.0-8.3); Neutrophils Percent Auto 83.6 % (45-73); Platelet Count 135 X10*3/uL (160-400); Red Blood Count 4.32 X10*6/uL (4.60-5.80); Red Cell Distribution Width 12.1 % (11.0-16.0); White Blood Count 5.1 X10*3/uL (4.8-10.8)
[2023-05-03 06:06] LABS: Anion Gap 16 (12-20); Blood Urea Nitrogen 21 mg/dL (9-16); Calcium 9.2 mg/dL (8.4-10.2); Carbon Dioxide 22 mmol/L (22-29); Chloride 105 mmol/L (96-108); Creatinine Clr Calc Pharmacy 54.2; Estimated Glomerular Filt Rate > 60; Glucose Random 285 mg/dL (60-115); Magnesium 1.9 mg/dL (1.6-2.6); Potassium 4.1 mmol/L (3.3-5.1); Sodium 139 mmol/L (135-145)
[2023-05-03] MEDS: Albuterol Sulfate (0.083%) 2.5 MG/3 ML VIAL.NEB INHALE (06:07)
[2023-05-03] MEDS: Albuterol/Iprat 2.5/0.5MG 3 ML AMPUL.NEB INHALE ×3 (07:51→14:52)
[2023-05-03] MEDS: methylPREDNISolone Sod Succ 125 MG/2 ML VIAL 80 MG IVPUSH (08:59)
[2023-05-03] MEDS: metFORMIN HCl 500 MG TABLET PO (09:00)
[2023-05-03] MEDS: Ascorbic Acid 500 MG TABLET PO (09:00)
[2023-05-03] MEDS: amLODIPine Besylate 5 MG TABLET PO (09:00)
[2023-05-03] MEDS: Cholecalciferol (Vitamin D3) 25 MCG TABLET 50 MCG PO (09:00)
[2023-05-03] MEDS: Docusate Sodium 100 MG CAPSULE PO (09:01)
[2023-05-03] MEDS: carvediloL 6.25 MG TABLET PO (09:01)
[2023-05-03] MEDS: lisinopriL 5 MG TABLET PO (09:01)
[2023-05-03] MEDS: Ezetimibe 10 MG TABLET PO (09:01)
[2023-05-03] MEDS: lamoTRIgine 25 MG TABLET PO (09:01)
[2023-05-03] MEDS: Atorvastatin Calcium 80 MG TABLET PO (09:01)
[2023-05-03 09:03] LABS: Glucose, Whole Blood 290 mg/dL (60-115)
--- NOTE | 2023-05-03 09:07 | HO.PM.IMPN ---
Subjective Subjective Date of Service: 05/03/23 Interval History: follow-up on COPD exacerbation. Doing better, still has some cough, breathing is comfortable on room and 99% Physical Exam Vital Signs: Vital Signs: Last Vital Signs Temp 97.5 F 05/03/23 07:59 Pulse 80 05/03/23 07:59 Resp 17 05/03/23 07:59 BP 113/63 05/03/23 07:59 Pulse Ox 99 05/03/23 07:59 O2 Del Method Room Air 05/03/23 07:59 BMI result Body Mass Index 28.0 Const: Other: General: AO X 3, no acute distress Resp: rhonchi bilaterally, no accessory muscle use CVS: S1,S2,RRR GI: +BS, NT, no distention Skin: No rash Neuro: motor grossly intact Psych: appropriate affect Objective Data Active Medications Acetaminophen (Acetaminophen 325 Mg Tablet) 650 mg PO Q6H PRN PRN Reason: Pain, Mild (Pain Scale 1-3) Last Admin: 05/03/23 01:39 Dose: 650 mg Documented By: ZOE Al Hydroxide/Mg Hydroxide (Magnesium Hydrox/Alum Hydrox 30 Ml Oral.Susp) 30 ml PO Q4H PRN PRN Reason: Heartburn/Nausea Albuterol Sulfate (Albuterol Sulfate (0.083%) 2.5 Mg/3 Ml Vial.Neb) 2.5 mg INHALE 6XD PRN PRN Reason: Shortness of Breath/Wheezing Last Admin: 05/03/23 06:07 Dose: 2.5 mg Documented By: PROSPER Albuterol/Ipratropium (Albuterol/Iprat 2.5/0.5mg 3 Ml Ampul.Neb) 3 ml INHALE RQID [facility] Last Admin: 05/03/23 07:51 Dose: 3 ml Documented By: CLINTON Amlodipine Besylate (Amlodipine Besylate 5 Mg Tablet) 5 mg PO DAILY [facility]; Protocol Last Admin: 05/03/23 09:00 Dose: 5 mg Documented By: JAREK Ascorbic Acid (Ascorbic Acid 500 Mg Tablet) 500 mg PO DAILY [facility] Last Admin: 05/03/23 09:00 Dose: 500 mg Documented By: JAREK Atorvastatin Calcium (Atorvastatin Calcium 80 Mg Tablet) 80 mg PO DAILY [facility] Last Admin: 05/03/23 09:01 Dose: 80 mg Documented By: JAREK Carvedilol (Carvedilol 6.25 Mg Tablet) 6.25 mg PO BID [facility]; Protocol Last Admin: 05/03/23 09:01 Dose: 6.25 mg Documented By: JAREK Dextrose (Dextrose 50 % 25 Gm/50 Ml Syringe) 25 gm IVPUSH Q15M PRN; Protocol PRN Reason: per Hypoglycemia Standing Ord. Docusate Sodium (Docusate Sodium 100 Mg Capsule) 100 mg PO BID [facility] Last Admin: 05/03/23 09:01 Dose: 100 mg Documented By: JAREK Ezetimibe (Ezetimibe 10 Mg Tablet) 10 mg PO DAILY [facility] Last Admin: 05/03/23 09:01 Dose: 10 mg Documented By: JAREK Enoxaparin Sodium (Enoxaparin Sodium 40 Mg/0.4 Ml Syringe) 40 mg SUBCUT Q24H [facility] Last Admin: 05/03/23 01:08 Dose: 40 mg Documented By: ZOE Fluticasone/Vilanterol (Fluticasone/Vilanterol 100/25 Blst.W.Dev) 1 puff INHALE RDAILY [facility] Glucose (Glucose Gel 15 Gm Gel..Gram.) 15 gm PO Q15M PRN; Protocol PRN Reason: per Hypoglycemia Standing Ord. Guaifenesin (Guaifenesin 100 Mg/5 Ml Liquid) 5 ml PO Q4H PRN PRN Reason: cough Guaifenesin/Codeine Phosphate (Guaifen/Codeine Sf 200/20/10ml 10 Ml Liquid) 10 ml PO QID PRN PRN Reason: Cough Last Admin: 05/03/23 01:39 Dose: 10 ml Documented By: ZOE Insulin Human Lispro (Insulin Lispro 100 Unit/Ml 3 Ml Vial) 0 unit SUBCUT QIDACHS [facility]; Protocol Lamotrigine (Lamotrigine 25 Mg Tablet) 25 mg PO BID [facility] Last Admin: 05/03/23 09:01 Dose: 25 mg Documented By: JAREK Lisinopril (Lisinopril 5 Mg Tablet) 5 mg PO DAILY [facility]; Protocol Last Admin: 05/03/23 09:01 Dose: 5 mg Documented By: JAREK Melatonin (Melatonin 3 Mg Tablet) 6 mg PO BEDTIME PRN PRN Reason: Insomnia Metformin HCl (Metformin Hcl 500 Mg Tablet) 500 mg PO BID [facility] Last Admin: 05/03/23 09:00 Dose: 500 mg Documented By: JAREK Methylprednisolone Sodium Succinate (Methylprednisolone Sod Succ 125 Mg/2 Ml Vial) 80 mg IVPUSH RBID [facility] Last Admin: 05/03/23 08:59 Dose: 80 mg Documented By: JAREK Omeprazole (Omeprazole 20 Mg Capsule.Dr) 20 mg PO DAILY@0630 [facility] Ondansetron HCl (Ondansetron Hcl 4 Mg/2 Ml Vial) 4 mg IVPUSH Q8H PRN PRN Reason: Nausea and Vomiting Senna (Sennosides 8.6 Mg Tablet) 17.2 mg PO BEDTIME PRN PRN Reason: Constipation Sodium Chloride (0.9 % Sodium Chloride Flush 3 Ml Syringe) 3 ml IVFLUSH QSHIFT [facility] Last Admin: 05/03/23 09:01 Dose: 3 ml Documented By: JAREK Vitamin D (Cholecalciferol (Vitamin D3) 25 Mcg Tablet) 50 mcg PO DAILY [facility] Last Admin: 05/03/23 09:00 Dose: 50 mcg Documented By: JAREK Labs 05/03/23 05:22 05/03/23 05:22 Labs: Laboratory Results - last 24 hr 05/02/23 05/03/23 05/03/23 14:30 05:22 08:59 MCV 89.5 88.0 MCH 29.4 30.3 MCHC 32.8 34.5 RDW 12.5 12.1 Plt Count 134 L 135 L MPV 11.6 12.3 Immature Gran % (Auto) 0.3 0.2 Neut % (Auto) 57.8 83.6 H Lymph % (Auto) 22.9 13.8 L [place] % (Auto) 10.2 2.0 Eos % (Auto) 8.1 H 0.2 Baso % (Auto) 0.7 0.2 Lymph # (Auto) 1.7 0.7 L [place] # (Auto) 0.7 0.1 Eos # (Auto) 0.6 H 0.0 Baso # (Auto) 0.1 0.0 Abs Immat Gran (auto) 0.02 0.01 Absolute Neuts (auto) 4.2 4.2 Absolute Nucleated RBC 0.000 0.000 Nucleated RBC % (auto) 0.0 0.0 Anion Gap 13 16 Estim Creat Clear Calc 47.4 54.2 Estimated GFR > 60 > 60 POC Glucose 290 H Random Glucose 240 H 285 H Calcium 9.6 9.2 Magnesium 1.9 Total Bilirubin 0.7 AST 19 ALT 28 Alkaline Phosphatase 83 B-Natriuretic Peptide 71 Total Protein 7.4 Albumin 4.4 Influenza Type A (PCR) NEGATIVE Influenza Type B (PCR) NEGATIVE RSV RNA Qual (PCR) NEGATIVE SARS-CoV-2 RNA (RT-PCR) NEGATIVE Assessment and Plan (1) COPD (chronic obstructive pulmonary disease): Status: Inactive (2) COPD exacerbation: Status: Resolved Plan 78 year old male with underlying history of CAD (s/p CABG), CHF, CVA, HTN, HLD, type diabetes mellitus, and asthma-COPD here with 1. 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 Improved. O2 sat 99% on room air, continue steroid and bronchodilators and if continues to do good, can go home later. PRN cough meds 2. Hypertension, controlle on coreg, norvasc and lisinopril 3. Hyperlipidemia continue Atorvastatin and Ezetimibe 4. Type 2 Diabetes Mellitus - resume Metformin, SSI, POC DVT: SC Lovenox CODE STATUS: Full code need for inpt: d/t multiple comorbid condition, and high risk of need higher care inpatient care was warranted' Quality Stroke Does the patient have a stroke diagnosis?: No VTE Prior VTE?: No VTE Risk Level:: Medical - moderate - high VTE Device Contraindication: N/A - Device Ordered VTE Drug Contraindication: N/A - Med Ordered
--- NOTE | 2023-05-03 09:22 | PM.DS ---
DS: Providers Provider Date of Service: 05/03/23 Date of admission: 05/02/23 22:49 Primary care physician: Leticia Foster NP DS: Diagnosis Discharge Diagnosis (1) COPD (chronic obstructive pulmonary disease): Status: Inactive (2) COPD exacerbation: Status: Resolved DS: Summary Hospital Course Hospital Course: admission HPI Chief Complaint: Persistent dyspnea on exertion and cough x 3 days 78 year old male with underlying history of CAD (s/p CABG), CHF, CVA, HTN, HLD, type diabetes mellitus, and asthma-COPD presents to the emergency room from an urgent care clinic complaining of cough productive of clear phlegm and progressively worsening shortness of breath over the last 2 days. He is so short of breath that he cannot speak in full sentences. He denies any recent travel or sick contacts. He used his inhaler without any significant improvement. He denies any associated with chest pain, fevers or chills. Initial work up done in the ED revealed a normal chest x-ray and normal blood work (except for platelet count of 134). He received 125 mg of IV SoluMedrol and an hour long Duo Neb updraft with minimal improvement. He is still very dyspneic and only able to speak 2-3 words before going into a coughing fit. A decision was therefore made to admit her for continued care. Hospital course: The patient presented with shortness of breath, CXR was negative for PNA, Flu, RSV and covid were negative. He was admitted for an exacerbation moderate persistent asthm with COPD overlap syndrome with acute exacerbation. He responded favorably to treatment with nebulized bronchodilators and intravenous steroids, and he has made a rapid improvement in his condition. Presently, he maintains oxygen saturation of 99% on room air, breathes without difficulty, and exhibits only a residual cough. He will be discharged with a 3-day course of prednison for total of 5 days of steroid, cough medication, and instructions to follow up with his primary care physician. Unpon ambulation, Heart rate was 88 and O2 sat was 97-99% on room air. He tolerated it well . He would like to go home. Time Attestation Discharge coordination time: Greater than 30 minutes Quality: Safe Use of Opioids Does Pt have an Active Cancer Diagnosis on the Problem List?: No Quality: Stroke Does the patient have a stroke diagnosis?: No Physical Exam Vital Signs: Vital Signs: Last Vital Signs Temp 97.5 F 05/03/23 07:59 Pulse 80 05/03/23 07:59 Resp 17 05/03/23 07:59 BP 113/63 05/03/23 07:59 Pulse Ox 99 05/03/23 07:59 O2 Del Method Room Air 05/03/23 07:59 BMI result Body Mass Index 28.0 Const: Other: General: AO X 3, no acute distress Resp: rhonchi bilaterally, no accessory muscle use CVS: S1,S2,RRR GI: +BS, NT, no distention Skin: No rash Neuro: motor grossly intact Psych: appropriate affect DS: Data Data Completed and Pending Completed studies during hospitalization [Text1]: Procedures Assistance with Respiratory Ventilation, Less than 24 Consecutive Hours, Continuous Positive Airway Pressure (12/09/22) Labs on day of discharge: Laboratory Results - last 24 hr 05/02/23 05/03/23 05/03/23 14:30 05:22 08:59 WBC 7.2 5.1 RBC 4.87 4.32 L Hgb 14.3 13.1 L Hct 43.6 38.0 L MCV 89.5 88.0 MCH 29.4 30.3 MCHC 32.8 34.5 RDW 12.5 12.1 Plt Count 134 L 135 L MPV 11.6 12.3 Immature Gran % (Auto) 0.3 0.2 Neut % (Auto) 57.8 83.6 H Lymph % (Auto) 22.9 13.8 L [place] % (Auto) 10.2 2.0 Eos % (Auto) 8.1 H 0.2 Baso % (Auto) 0.7 0.2 Lymph # (Auto) 1.7 0.7 L Person # (Auto) 0.7 0.1 Eos # (Auto) 0.6 H 0.0 Baso # (Auto) 0.1 0.0 Abs Immat Gran (auto) 0.02 0.01 Absolute Neuts (auto) 4.2 4.2 Absolute Nucleated RBC 0.000 0.000 Nucleated RBC % (auto) 0.0 0.0 Sodium 140 139 Potassium 4.9 D 4.1 Chloride 104 105 Carbon Dioxide 28 22 Anion Gap 13 16 BUN 19 H 21 H Creatinine 1.15 1.00 Estim Creat Clear Calc 47.4 54.2 Estimated GFR > 60 > 60 POC Glucose 290 H Random Glucose 240 H 285 H Calcium 9.6 9.2 Magnesium 1.9 Total Bilirubin 0.7 AST 19 ALT 28 Alkaline Phosphatase 83 Troponin I High Sens 3.5 D B-Natriuretic Peptide 71 Total Protein 7.4 Albumin 4.4 Influenza Type A (PCR) NEGATIVE Influenza Type B (PCR) NEGATIVE RSV RNA Qual (PCR) NEGATIVE SARS-CoV-2 RNA (RT-PCR) NEGATIVE Discharge Plan Discharge Anticipated Discharge Date/Time: 05/03/23 15:31 Patient Disposition: Home, Self-Care Discharge Diagnosis: acute exacerbation of COPD Referrals: Leticia Foster PUMP[employer] GAGER [Primary Care Provider] - 1 Week Discharge Medications: New prednisone 20 mg tablet 40 mg PO DAILY Qty: 6 0RF Robitussin Cough-Chest Amado DM 5-100 mg/5 mL liquid 5 ml PO Q4-8H PRN (Reason: cough) Qty: 237 0RF Continued metformin 500 mg tablet 500 mg PO BID atorvastatin 80 mg tablet 80 mg PO DAILY carvedilol 6.25 mg tablet 6.25 mg PO BID amlodipine 5 mg tablet 5 mg PO DAILY lamotrigine 25 mg tablet 25 mg PO BID ascorbic acid (vitamin C) [Vitamin C] 500 mg Tablet 500 mg PO DAILY pantoprazole 40 mg tablet,delayed release (DR/EC) 40 mg PO DAILY lisinopril 5 mg tablet 5 mg PO DAILY albuterol sulfate [Ventolin HFA] 90 mcg/actuation HFA aerosol inhaler 2 puff inhalation Q4H PRN (Reason: Shortness Of Breath Or Wheezing) ezetimibe 10 mg tablet 10 mg PO DAILY oxycodone 10 mg tablet 10 mg PO Q4H PRN (Reason: pain) cholecalciferol (vitamin D3) 50 mcg (2,000 unit) capsule 50 mcg PO DAILY guaifenesin 100 mg/5 mL Liquid 100 mg PO Q4H PRN (Reason: cough) Qty: 473 0RF (DME) nebulizers Misc See Rx Instructions .Route Qty: 1 0RF Rx Instructions: As directed budesonide-formoterol 80-4.5 mcg/actuation HFA aerosol inhaler 1 puff inhalation BID Qty: 10.2 1RF ipratropium-albuterol 0.5 mg-3 mg(2.5 mg base)/3 mL solution for nebulization 3 ml inhalation Q8H Discharge Orders: Discharge Order (Routine); Ordered 05/03/23 Ordered By: Abdirashid Lewis Diet: Diabetic diet Activity on Discharge: As tolerated Stand Alone Forms: Patient Portal Discharge page Care Plan Goals: Achieving full recovery from a COPD exacerbation and regaining previous functional level. Health Concerns: COPD Plan of Treatment: take prednisone as directed, continue use of your inhalers. Take robitussin for cough. Follow-up with your doctor in a week, return to the emergency if your condition worsens Assessment: see above
[2023-05-03] MEDS: guaiFENesin 100 MG/5 ML LIQUID PO ×2 (11:03→16:18)
[2023-05-03 11:17] LABS: Glucose, Whole Blood 228 mg/dL (60-115)
[2023-05-03] MEDS: Insulin Lispro 100 UNIT/ML 3 ML VIAL SUBCUT (12:30)
--- NOTE | 2023-05-03 15:53 | MHC.CM.PN ---
PT REPORTS HE LIVES WITH HIS AND DAUGHTER HE HAS A [employer] 6 HOURS PER WEEK HE SAYS HE USUALLY USES A CANE BUT ALSO HAS A WALKER WHEN HE NEEDS IT HE HAS A HCP ON FILE PCP: ANDRZEJ PALAFOX IMM DELIVERED DCP: PT WILL DC HOME TODAY WITH [facility] FAMILY TO TRANSPORT
[2023-05-03 16:07] LABS: Glucose, Whole Blood 210 mg/dL (60-115)
== END 2023-05-03 16:33 | disposition home or self-care (01) | DRG 190 ==
LOC: HO.ED 21:50 → HO.EDOVER 23:18 → HO.S3 23:59
PROVIDERS: Physician Assistant; Admitting Provider Internal Medicine; Emergency Provider Emergency Medicine; PCP Nurse Practitioner Family; Visit Provider Internal Medicine
DX: J44.1 Chronic obstructive pulmonary disease with (acute) exacerbation (principal); J96.01 Acute respiratory failure with hypoxia; J45.41 Moderate persistent asthma with (acute) exacerbation; I25.10 Atherosclerotic heart disease of native coronary artery without angina pectoris; E78.5 Hyperlipidemia, unspecified; E11.9 Type 2 diabetes mellitus without complications; I10 Essential (primary) hypertension; Z95.1 Presence of aortocoronary bypass graft; Z87.891 Personal history of nicotine dependence; Z20.822 Contact with and (suspected) exposure to COVID-19; Z79.84 Long term (current) use of oral hypoglycemic drugs; Z79.899 Other long term (current) drug therapy
CPT/HCPCS: 0241U; 36415; 71046; 80048; 80053; 82947; 83735; 83880; 84484; 85025; 93005; 94640; 99285; J1650; J2930

== ENCOUNTER → 2023-05-02 16:09 | Outpatient (BNV) | payer MEDICARE, MEDICAID, SELFPAY | PROVIDERS: Admitting Provider Internal Medicine; Emergency Provider Emergency Medicine; PCP Nurse Practitioner Family; Visit Provider Internal Medicine | DX: R94.31 Abnormal electrocardiogram [ECG] [EKG] (principal) | CPT/HCPCS: 93010 ==

== ENCOUNTER → 2023-05-02 22:49 | Outpatient (BNV) | payer MEDICARE, MEDICAID, SELFPAY | PROVIDERS: Admitting Provider Internal Medicine; Emergency Provider Emergency Medicine; PCP Nurse Practitioner Family; Visit Provider Internal Medicine | DX: J44.1 Chronic obstructive pulmonary disease with (acute) exacerbation (principal); J45.901 Unspecified asthma with (acute) exacerbation; J96.01 Acute respiratory failure with hypoxia; I10 Essential (primary) hypertension | CPT/HCPCS: 99222; 99239 ==